=== PATIENT | male | born 1945 | race Caucasian/White ===

== ENCOUNTER 2016-11-08 20:45 | Observation (INO) | payer OTHER, MEDICARE ==
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
[2016-11-08 21:35] LABS: Basophils % (A) 1 %; CH 33.3; CHCM 34.3; Eosinophils # (A) 0.2 k/uL (0-0.7); Eosinophils % (A) 2 %; HCT 39.9 % (39.0-53.0); HDW 2.25; HGB 13.5 gm/dL (13.0-17.5); Luc # (Auto) 0.12; Luc % (Auto) 1; Lymphocytes # (A) 1.3 k/uL (1.0-4.8); Lymphocytes % (A) 14 %; MCH 33.1 pg (25.0-35.0); MCHC 33.9 g/dL (31.0-37.0); MCV 97.4 fL (80.0-100.0); Mean Platelet Volume 7.8; Monocytes # (A) 0.3 k/uL (0-1.0); Monocytes % (A) 3 %; Neutrophils # (A) 7.4 k/uL (1.3-7.7); Neutrophils % (A) 79 %; RBC 4.09 m/uL (4.30-5.90); RDW 12.4 % (11.5-15.5); WBC 9.3 k/uL (3.8-10.6); WBC (Perox) 9.57
--- NOTE | 2016-11-08 21:44 | XR ---
EXAMINATION TYPE: XR chest 1V portable DATE OF EXAM: 11/08/2016 9:30 PM COMPARISON: [id number] HISTORY: Chest pain TECHNIQUE: Single frontal view of the chest is obtained. FINDINGS: There is redemonstration of chronic opacity at the left costophrenic angle partially obscu ring the peripheral left hemidiaphragm. This may relate to chronic pleural parenchymal scarring versu s trace persistent left pleural effusion. Overall there is pulmonary hyperinflation and flattening of the diaphragms compatible with underlying COPD as there is also evidence of biapical lucency. Linear scarring versus chronic atelectasis is seen within the right upper lung radiating from the sup rahilar region. Prominent chronic interstitial lung markings are unchanged from the prior. Postsurgic al changes are seen of the sternum and mediastinum. Cardiac silhouette is nonenlarged. Osseous struct ures appear intact. IMPRESSION: 1. No acute cardiopulmonary pathology. 2. Persistent trace left pleural effusion versus left pleural thickening. 3. Right upper lung scarring versus chronic platelike atelectasis. 4. Radiographic sequela of COPD.
[2016-11-08 21:47] LABS: ALT 38 U/L (21-72); AST 22 U/L (17-59); Alkaline Phosphatase 84 U/L (38-126); Anion Gap 11 mmol/L; Blood Urea Nitrogen 28 mg/dL (9-20); Calcium 8.8 mg/dL (8.4-10.2); Carbon Dioxide 22 mmol/L (22-30); Chloride 106 mmol/L (98-107); Glucose 95 mg/dL (74-99); Magnesium 1.8 mg/dL (1.6-2.3); Non-African American GFR(MDRD) >60 (>60 ml/min/1.73 sqM); Potassium 3.6 mmol/L (3.5-5.1); Sodium 139 mmol/L (137-145); Total Bilirubin 0.8 mg/dL (0.2-1.3)
[2016-11-08 21:51] LABS: Partial Thromboplastin Time 22.1 sec (22.0-30.0); Prothrombin Time 9.9 sec (9.0-12.0)
[2016-11-08 21:52] LABS: Creatine Kinase 38 U/L (55-170)
[2016-11-08 22:07] LABS: Creatine Kinase MB 0.5 ng/mL (0.0-2.4); Troponin I <0.012 ng/mL (0.000-0.034)
[2016-11-08] MEDS ORDERED: MORPHINE SULFATE 4 MG/ML SYRINGE IV PRN (22:50)
[2016-11-08] MEDS ORDERED: NITROGLYCERIN SL TABS 0.4 MG TAB SUBLINGUAL PRN (22:50)
[2016-11-08] MEDS ORDERED: FLUTICASONE 50MCG/SPRAY NASAL 16GM NASAL PRN (22:52)
[2016-11-09 00:20] VITALS: BMI 28.8
[2016-11-09 03:46] LABS: Creatine Kinase 46 U/L (55-170)
[2016-11-09 04:00] LABS: Creatine Kinase MB 0.6 ng/mL (0.0-2.4); Troponin I <0.012 ng/mL (0.000-0.034)
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
[2016-11-09 07:41] LABS: Cholesterol 154 mg/dL (<200); HDL Cholesterol 48 mg/dL (40-60); Triglycerides 102 mg/dL (<150)
[2016-11-09 07:43] LABS: Creatine Kinase 30 U/L (55-170)
[2016-11-09 07:55] LABS: Creatine Kinase MB 0.5 ng/mL (0.0-2.4); Troponin I <0.012 ng/mL (0.000-0.034)
[2016-11-09] MEDS: SYMBICORT 160-4.5 MCG INHALER INHALATION SCH ×2 (08:19→20:36)
[2016-11-09] MEDS: ALBUTEROL NEBULIZED 2.5 MG/3 ML INHALATION SCH ×4 (08:20→20:36)
[2016-11-09] MEDS: PANTOPRAZOLE 40 MG TABLET PO SCH ×2 (08:45→17:36)
[2016-11-09] MEDS: ASPIRIN 325 MG TAB PO SCH (08:45)
[2016-11-09] MEDS: METOPROLOL SUCCINATE (ER) 25 MG TAB.ER.24H PO SCH (08:45)
[2016-11-09] MEDS: ISOSORBIDE MONONITRATE ER 30 MG TAB.ER.24H PO SCH (08:45)
[2016-11-09] MEDS: TIOTROPIUM 18 MCG/PUFF INHALER INHALATION SCH (13:36)
[2016-11-09] MEDS: GABAPENTIN 300 MG CAP PO SCH ×2 (16:41→21:50)
--- NOTE | 2016-11-09 18:36 | HP ---
DATE OF ADMISSION: Patient is a 71-year-old with a previous history of coronary artery disease, CABG with 3-vessel bypass grafting in 2003. He was having chest pain yesterday with some typical features radiating to both the shoulders. Patient denied any shortness of breath, lightheadedness or diaphoresis associated with that. After that patient took an aspirin and sublingual nitroglycerin. After sublingual nitroglycerin patient had a syncopal episode without any seizure-like activity, loss of bowel or bladder incontinence. Patient's blood pressure at that time was apparently in the 50s systolic. He was brought in here. Apparently it was low as well and patient was mildly bradycardic as well. Patient was subsequently admitted for monitoring and evaluation by Cardiology. Patient had a recent stress test about 4 weeks ago in [facility]. Apparently that was negative, as per the patient. Cardiology evaluated the patient and they are recommending one more day of monitoring. Patient takes 100 mg of Toprol XL and amlodipine 10 mg, lisinopril hydrochlorothiazide combination. Patient is only being continued on 25 mg of Toprol XL. In spite of this, his blood pressure remained on the normal side. Patient may be actually hypotensive and was being over-treated for his hypertension. Will monitor his blood pressures as well overnight and will decide what to do regarding his antihypertensive medications upon discharge. REVIEW OF SYSTEMS: CONSTITUTIONAL: No fever, no malaise, no fatigue. HEENT: No recent visual problems or hearing problems. Denied any sore throat. CARDIOVASCULAR: As described in HPI. Patient denied any palpitations. Patient does not have any more chest pain. PULMONARY: No shortness of breath, no cough, no hemoptysis. GASTROINTESTINAL: No diarrhea, no nausea, no vomiting, no abdominal pain. Normoactive bowel sounds. NEUROLOGICAL: No headaches, no weakness, no numbness. HEMATOLOGICAL: Denies any bleeding or petechiae. GENITOURINARY: Denies any burning micturition, frequency, or urgency. MUSCULOSKELETAL/RHEUMATOLOGICAL: Denies any joint pain, swelling, or any muscle pain. ENDOCRINE: Denies any polyuria or polydipsia. The rest of the 14 point review of systems is negative. Past medical history is significant for: 1. Coronary artery disease. 2. Four-vessel bypass in the past. 3. COPD. 4. Congestive heart failure. 5. Gastroesophageal reflux disease. 6. Hyperlipidemia. 7. Hypertension. 8. Myocardial infarction in the past. 9. Patient had coronary artery bypass grafting, cardiac catheterization. 10. Orthopedic surgery in the past. SOCIAL HISTORY: Former smoker. Denied any alcohol abuse or any drug abuse. FAMILY HISTORY: Father had coronary artery disease, dementia, myocardial infarction. Mother had cancer and at age 73 of multiple cancers, as per the patient. HOME MEDICATIONS: 1. Albuterol. 2. Budesonide/formoterol. 3. Pravastatin. 4. Tiatropium. 5. Aspirin. 6. Albuterol. 7. Fluticasone nasal spray. 8. Gabapentin. 9. Ipratropium. 10. Lisinopril hydrochlorothiazide. 11. Isosorbide mononitrate 120 p.o. daily. 12. Metoprolol succinate. 13. Omeprazole. 14. Amlodipine. ALLERGIES: NO KNOWN DRUG ALLERGIES. PHYSICAL EXAMINATION: VITAL SIGNS: Temperature 97.4, pulse of 64, respiratory rate of 16. Blood pressure is 134/92. Saturating at 94% on 2 L of oxygen by nasal cannula. GENERAL: The patient is alert and oriented x3, not in any acute distress. Well developed, well nourished. HEENT: Pupils are round and equally reacting to light. EOMI. No scleral icterus. No conjunctival pallor. Normocephalic, atraumatic. No pharyngeal erythema. No thyromegaly. CARDIOVASCULAR: S1 and S2 present. No murmurs, rubs, or gallops. PULMONARY: Chest is clear to auscultation, no wheezing or crackles. ABDOMEN: Soft, nontender, nondistended, normoactive bowel sounds. No palpable organomegaly. MUSCULOSKELETAL: No joint swelling or deformity. EXTREMITIES: No cyanosis, clubbing, or pedal edema. NEUROLOGICAL: Gross neurological examination did not reveal any focal deficits. SKIN: No rashes. LABORATORY DATA: CBC, CMP show no significant abnormality except for mildly elevated BUN of 28. Chest x-ray did not show any significant abnormality except for old atelectasis scarring and COPD, trace left-sided pleural effusion, left pleural thickening. ASSESSMENT AND PLAN: 1. Chest discomfort in a patient with a recent stress test. Cardiology evaluated the patient. Rule out acute coronary syndromes. 2. Syncope which is secondary to hypotension and overtreatment with antihypertensive medications along with sublingual nitroglycerin he received. Will continue to hold off on the antihypertensive medications and see how his blood pressure responds overnight and then, depending on that, will decide on his home regimen upon discharge. 3. Chronic obstructive pulmonary disease without any acute exacerbation. 4. Hyperlipidemia. 5. Coronary artery disease with previous coronary artery bypass graft. 6. Osteoarthritis.
[2016-11-09] MEDS ORDERED: ACETAMINOPHEN TAB 325 MG TAB PO PRN (20:15)
[2016-11-09] MEDS ORDERED: MAGNESIUM PO SCH (21:00)
[2016-11-09] MEDS ORDERED: ZINC PO SCH (21:00)
[2016-11-09] MEDS ORDERED: CALCIUM PO SCH (21:00)
[2016-11-09] MEDS ORDERED: PRAVASTATIN SODIUM 80 MG TAB PO SCH (21:00)
[2016-11-10] MEDS: SYMBICORT 160-4.5 MCG INHALER INHALATION SCH (07:12)
[2016-11-10] MEDS: ALBUTEROL NEBULIZED 2.5 MG/3 ML INHALATION SCH ×2 (07:12→10:46)
[2016-11-10] MEDS: TIOTROPIUM 18 MCG/PUFF INHALER INHALATION SCH (07:34)
[2016-11-10] MEDS: ISOSORBIDE MONONITRATE ER 30 MG TAB.ER.24H PO SCH (08:06)
[2016-11-10] MEDS: PANTOPRAZOLE 40 MG TABLET PO SCH (08:06)
[2016-11-10] MEDS: ASPIRIN 325 MG TAB PO SCH (08:06)
[2016-11-10] MEDS: GABAPENTIN 300 MG CAP PO SCH (08:06)
[2016-11-10] MEDS: METOPROLOL SUCCINATE (ER) 25 MG TAB.ER.24H PO SCH (08:06)
--- NOTE | 2016-11-10 08:26 | P.PN ---
Progress Note - Text This is a pleasant 71-year-old gentleman with a past medical history significant for coronary artery disease and prior coronary artery bypass grafting 3 in 2003 with unknown details at this point, hypertension, dyslipidemia, and COPD, presented to the hospital complaining of chest discomfort. The patient was in his usual state of health until yesterday when he was sitting home watching TV and suddenly started experiencing chest discomfort. He went into the kitchen to get an aspirin and on the way to the kitchen he lost his consciousness. Ambulance was called and the patient was found to be hypotensive. He was brought to the hospital. The EKG showed sinus rhythm without any significant changes. The cardiac enzymes were checked and came in to be unremarkable. The patient had similar episode to this back in 2015 and at that point he underwent dobutamine stress echocardiogram as well as an echocardiogram and both came in to be unremarkable. I am concerned about severity underlying CAD or cardiac arrhythmia behind his symptoms in view of the background medical history as well as the recurrence of symptoms. I recommended proceeding with a different modality of stress test but unfortunately the patient, have nuclear stress test because of claustrophobia. I might consider proceeding with heart catheterization to rule out any severe underlying CAD. Also cardiac arrhythmia has to be ruled out as an etiology for his symptoms. I am going to DC the heparin at this point. I'll follow-up with the patient today, he seems to be feeling better. He did not have any chest pain or discomfort within the last 24 hours. He did not have any cardiac arrhythmia. I recommended the patient to have an event monitor and also to undergo a heart catheterization. The patient would like that to be done at the [facility] in [place]. I would get him up and around
[2016-11-10 11:58] VITALS: BP 118/62; PULSE 67; TEMP 97.8
[2016-11-10 12:40] VITALS: RESP 18
--- NOTE | 2016-11-10 18:19 | DS ---
DATE OF ADMISSION: 11/08/2016 DATE OF DISCHARGE: 11/10/2016 The patient is a 71-year-old admitted with a syncopal episode after taking sublingual nitroglycerin. The blood pressure is low in spite of stopping all of his anti-hypertensive medications including decreasing the dose of Toprol-XL to 25 mg. Patient was having chest pain which was evaluated by cardiology and they are recommending a cardiac catheterization down the line in [facility]. At this point of time patient has a recent cardiac catheterization, which was negative because of which no further intervention is being done at this point of time. Regarding his syncopal episode, I am discontinuing all his anti-hypertensive medications except for I am putting him on low dose of Lisinopril 5 mg and discontinued hydrochlorothiazide. Patient was on 20 mg of Lisinopril amlodipine. All of which are discontinued. I am decreasing the dose of Toprol-XL to 50 mg from 100 mg as patient was significantly sinus bradycardic as well. Patient was seen and examined on the day of discharge. Vitals are stable. PHYSICAL EXAMINATION: GENERAL: The patient is alert and oriented x3, not in any acute distress. Well developed, well nourished. HEENT: Pupils are round and equally reacting to light. EOMI. No scleral icterus. No conjunctival pallor. Normocephalic, atraumatic. No pharyngeal erythema. No thyromegaly. CARDIOVASCULAR: S1 and S2 present. No murmurs, rubs, or gallops. PULMONARY: Chest is clear to auscultation, no wheezing or crackles. ABDOMEN: Soft, nontender, nondistended, normoactive bowel sounds. No palpable organomegaly. MUSCULOSKELETAL: No joint swelling or deformity. EXTREMITIES: No cyanosis, clubbing, or pedal edema. NEUROLOGICAL: Gross neurological examination did not reveal any focal deficits. SKIN: No rashes. ASSESSMENT: 1. Chest pain due to above mentioned reasons, ruled out acute coronary syndrome. 2. Syncope. 3. Chronic obstructive pulmonary disease without any acute exacerbation. 4. Hyperlipidemia. 5. Coronary artery disease. 6. Osteoarthritis. Patient will be discharged today. Follow with Dr. Pete Abdi in three to five days. Follow-up with Cardiology. Activity as tolerated. Cardiac diet. Spent greater than 35 minutes in total discharge process.
== END 2016-11-10 12:45 | disposition home or self-care (01) ==
LOC: EC 20:45 → 3SUR 22:54
PROVIDERS: ADMIT Hospitalist; ATTEND Hospitalist
DX: R07.89 Other chest pain (principal); J44.9 Chronic obstructive pulmonary disease, unspecified; I25.119 Atherosclerotic heart disease of native coronary artery with unspecified angina pectoris; I95.9 Hypotension, unspecified; E78.5 Hyperlipidemia, unspecified; Z95.1 Presence of aortocoronary bypass graft; I25.2 Old myocardial infarction; Z86.73 Personal history of transient ischemic attack (TIA), and cerebral infarction without residual deficits; I11.0 Hypertensive heart disease with heart failure; I50.9 Heart failure, unspecified; K21.9 Gastro-esophageal reflux disease without esophagitis; Z99.81 Dependence on supplemental oxygen; M19.90 Unspecified osteoarthritis, unspecified site; Z79.899 Other long term (current) drug therapy; Z79.82 Long term (current) use of aspirin; Z79.51 Long term (current) use of inhaled steroids; Z87.891 Personal history of nicotine dependence; Z82.49 Family history of ischemic heart disease and other diseases of the circulatory system; R00.1 Bradycardia, unspecified; R06.00 Dyspnea, unspecified
CPT/HCPCS: 99285; 36415; 94640 ×4; 93005; 80061; 80053; 82550 ×2; 82553 ×2; 83735; 84484 ×2; 85025; 85610; 85730; 71010; G0378 ×3

== ENCOUNTER 2017-09-20 17:00 | Inpatient (IN) | payer OTHER, MEDICARE ==
[2017-09-20] MEDS ORDERED: SODIUM CHLORIDE 0.9% 1,000 ML IV STA (17:49)
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
[2017-09-20 19:04] LABS: Basophils # (A) 0.1 k/uL (0-0.2); Basophils % (A) 2 %; Eosinophils # (A) 0.2 k/uL (0-0.7); Eosinophils % (A) 3 %; HCT 43.8 % (39.0-53.0); HGB 15.5 gm/dL (13.0-17.5); Lymphocytes # (A) 1.3 k/uL (1.0-4.8); Lymphocytes % (A) 17 %; MCH 34.1 pg (25.0-35.0); MCHC 35.5 g/dL (31.0-37.0); MCV 96.2 fL (80.0-100.0); Mean Platelet Volume 7.8; Monocytes # (A) 0.5 k/uL (0-1.0); Monocytes % (A) 6 %; Neutrophils # (A) 5.9 k/uL (1.3-7.7); Neutrophils % (A) 72 %; Platelet Count 222 k/uL (150-450); RBC 4.55 m/uL (4.30-5.90); RDW 11.7 % (11.5-15.5); WBC 8.1 k/uL (3.8-10.6)
[2017-09-20 19:15] LABS: Appearance,Urine Clear (Clear); Bilirubin,Urine Negative (Negative); Blood,Urine Negative (Negative); Color,Urine Yellow; Glucose,Urine (UA) Negative (Negative); Ketones,Urine Negative (Negative); Leukocyte Esterase,Urine Negative (Negative); Nitrite,Urine Negative (Negative); PH, Urine 6.5 (5.0-8.0); Protein,Urine Negative (Negative); Specific Gravity,Urine 1.006 (1.001-1.035); Urobilinogen,Urine <2.0 mg/dL (<2.0)
[2017-09-20 19:15] LABS: Albumin 3.9 g/dL (3.5-5.0); Calcium 9.4 mg/dL (8.4-10.2); Potassium 3.6 mmol/L (3.5-5.1); Total Protein 6.5 g/dL (6.3-8.2)
--- NOTE | 2017-09-20 19:25 | XR ---
EXAMINATION TYPE: XR chest 2V DATE OF EXAM: 09/20/2017 COMPARISON: Prior chest x-ray November 08, 2016. HISTORY: Hypotension and shortness of breath. TECHNIQUE: Frontal and lateral views of the chest are obtained. FINDINGS: There is there is persistent right suprahilar linear scarring. There is additional left perez prahilar linear scarring slightly less prominent. There is additional chronic parenchymal change or s carring in both bases. There is no suspicious focal airspace opacity, pleural effusion, or pneumothor ax seen bilaterally. The cardiac silhouette size is within normal limits with atherosclerotic thoraci c aorta. The osseous structures are intact. IMPRESSION: Bilateral chronic parenchymal fibrosis without suspicious acute pulmonary process.
[2017-09-20 19:27] LABS: Creatine Kinase 98 U/L (55-170)
[2017-09-20 19:31] LABS: Partial Thromboplastin Time 22.1 sec (22.0-30.0); Prothrombin Time 10.1 sec (9.0-12.0)
[2017-09-20 19:41] LABS: Creatine Kinase MB 1.3 ng/mL (0.0-2.4); Troponin I <0.012 ng/mL (0.000-0.034)
[2017-09-20] MEDS ORDERED: NALOXONE 0.4 MG/ML 1 ML VIAL IV PRN (20:08)
[2017-09-20] MEDS ORDERED: FLUTICASONE 50MCG/SPRAY NASAL 16GM EA NOSTRIL PRN (20:09)
[2017-09-20] MEDS ORDERED: LORATADINE 10 MG TAB PO PRN (20:09)
[2017-09-20] MEDS ORDERED: ALBUTEROL NEBULIZED 2.5 MG/3 ML INHALATION PRN (20:09)
[2017-09-20 21:56] VITALS: BMI 28.2
[2017-09-20] MEDS ORDERED: PREGABALIN 25 MG CAP PO SCH (22:00)
[2017-09-20] MEDS ORDERED: PREGABALIN 25 MG CAP PO STA (22:43)
[2017-09-20] MEDS: ACETAMINOPHEN TAB 500 MG TAB PO PRN (22:55)
[2017-09-21] MEDS: ISOSORBIDE MONONITRATE ER 60 MG TAB.ER.24H PO SCH (07:43)
[2017-09-21] MEDS: PANTOPRAZOLE 40 MG TABLET PO SCH ×2 (07:43→17:21)
[2017-09-21] MEDS: ASPIRIN 81 MG PO SCH (07:43)
[2017-09-21] MEDS: PREGABALIN 25 MG CAP PO SCH ×3 (07:47→21:24)
[2017-09-21] MEDS: UREA 20% TOPICAL SCH (07:48)
[2017-09-21] MEDS: IPRATROPIUM 0.5 MG/2.5 ML NEBU INHALATION SCH ×2 (08:00→11:41)
[2017-09-21] MEDS: ALBUTEROL NEBULIZED 2.5 MG/3 ML INHALATION SCH ×2 (08:00→11:41)
[2017-09-21] MEDS: SYMBICORT 160-4.5 MCG INHALER INHALATION SCH ×2 (08:00→20:35)
[2017-09-21 08:30] LABS: Basophils # (A) 0.1 k/uL (0-0.2); Basophils % (A) 1 %; Eosinophils # (A) 0.3 k/uL (0-0.7); Eosinophils % (A) 4 %; HCT 43.2 % (39.0-53.0); HGB 14.5 gm/dL (13.0-17.5); Lymphocytes # (A) 1.5 k/uL (1.0-4.8); Lymphocytes % (A) 24 %; MCH 33.1 pg (25.0-35.0); MCHC 33.7 g/dL (31.0-37.0); MCV 98.2 fL (80.0-100.0); Mean Platelet Volume 8.2; Monocytes # (A) 0.5 k/uL (0-1.0); Monocytes % (A) 8 %; Neutrophils # (A) 3.8 k/uL (1.3-7.7); Neutrophils % (A) 61 %; Platelet Count 164 k/uL (150-450); RBC 4.39 m/uL (4.30-5.90); RDW 11.7 % (11.5-15.5); WBC 6.2 k/uL (3.8-10.6)
[2017-09-21 08:44] LABS: Albumin 3.5 g/dL (3.5-5.0); Potassium 3.8 mmol/L (3.5-5.1); Total Bilirubin 1.3 mg/dL (0.2-1.3); Total Protein 6.1 g/dL (6.3-8.2)
[2017-09-21] MEDS: IPRATROPIUM-ALBUTEROL 3 ML NEB INHALATION SCH ×2 (16:26→20:35)
[2017-09-21] MEDS: LISINOPRIL 10 MG TAB PO SCH (17:21)
[2017-09-21] MEDS: METOPROLOL SUCCINATE (ER) 50 MG TAB.ER.24H PO SCH (17:21)
[2017-09-21 20:46] VITALS: RESP 18
[2017-09-21] MEDS ORDERED: cloNIDine HCL 0.1 MG TAB PO PRN (20:51)
[2017-09-21] MEDS: amLODIPine 5 MG TAB PO SCH (21:25)
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
[2017-09-22] MEDS: IPRATROPIUM-ALBUTEROL 3 ML NEB INHALATION SCH ×4 (07:28→20:27)
[2017-09-22] MEDS: SYMBICORT 160-4.5 MCG INHALER INHALATION SCH ×2 (07:28→20:27)
[2017-09-22 07:51] LABS: Basophils # (A) 0.1 k/uL (0-0.2); Basophils % (A) 1 %; Eosinophils # (A) 0.2 k/uL (0-0.7); Eosinophils % (A) 3 %; HCT 41.4 % (39.0-53.0); HGB 14.2 gm/dL (13.0-17.5); Lymphocytes # (A) 1.2 k/uL (1.0-4.8); Lymphocytes % (A) 19 %; MCH 33.1 pg (25.0-35.0); MCHC 34.2 g/dL (31.0-37.0); MCV 96.8 fL (80.0-100.0); Monocytes # (A) 0.4 k/uL (0-1.0); Monocytes % (A) 6 %; Neutrophils # (A) 4.4 k/uL (1.3-7.7); Neutrophils % (A) 70 %; Platelet Count 166 k/uL (150-450); RBC 4.28 m/uL (4.30-5.90); RDW 11.6 % (11.5-15.5); WBC 6.3 k/uL (3.8-10.6)
[2017-09-22] MEDS: ASPIRIN 81 MG PO SCH (08:18)
[2017-09-22] MEDS: amLODIPine 5 MG TAB PO SCH ×2 (08:18→20:33)
[2017-09-22] MEDS: LISINOPRIL 10 MG TAB PO SCH (08:18)
[2017-09-22] MEDS: PANTOPRAZOLE 40 MG TABLET PO SCH ×2 (08:18→16:32)
[2017-09-22] MEDS: METOPROLOL SUCCINATE (ER) 50 MG TAB.ER.24H PO SCH (08:18)
[2017-09-22] MEDS: ISOSORBIDE MONONITRATE ER 60 MG TAB.ER.24H PO SCH (08:18)
[2017-09-22 08:19] LABS: Anion Gap 9 mmol/L; Blood Urea Nitrogen 13 mg/dL (9-20); Calcium 9.6 mg/dL (8.4-10.2); Carbon Dioxide 28 mmol/L (22-30); Chloride 98 mmol/L (98-107); Glucose 95 mg/dL (74-99); Potassium 3.9 mmol/L (3.5-5.1); Sodium 135 mmol/L (137-145)
[2017-09-22] MEDS: PREGABALIN 25 MG CAP PO SCH ×3 (08:21→20:33)
[2017-09-22] MEDS: UREA 20% TOPICAL SCH (08:24)
[2017-09-22] MEDS ORDERED: LISINOPRIL 10 MG TAB PO SCH (09:00)
[2017-09-22] MEDS ORDERED: METOPROLOL SUCCINATE (ER) 50 MG TAB.ER.24H PO SCH (09:00)
[2017-09-22] MEDS: HYDROCHLOROTHIAZIDE 12.5 MG CAP PO SCH (12:40)
[2017-09-22] MEDS ORDERED: PRAVASTATIN SODIUM 80 MG TAB PO SCH (21:00)
--- NOTE | 2017-09-22 22:26 | P.PN ---
Subjective Progress Note Date: 09/22/17 Principal diagnosis: Syncope Patient is a 72-year-old male with a known history of coronary artery disease with history of CABG, abdominal aortic repair, hypertension, peripheral neuropathy and alcohol abuse and other medical problems came to ER with complaint of dizziness, low blood pressure, and syncope. He states that for the last few weeks he has been having issues with low blood pressure at least once per week. Today his blood pressures have been very low in the 50s/40s when checked by his . He states that today he has been very dizzy and has been nearly passing out whenever he attempts to stand. He states that one point he did pass out completely while sitting on the couch. Denies any injury from this. He states that he is eating and drinking without difficulty. He denies any new medications or recent changes in his medications. He denies any recent nausea, vomiting, or diarrhea. Denies any chest pain. States he does have shortness of breath with lying flat. States he does get swelling in his legs when he does take medication for this. Patient denies any recent rash, fever, chills, abdominal pain, constipation, back pain, numbness, tingling, hematuria, dysuria, urinary urgency, urinary frequency, headache, visual changes , or any other complaints. Chest x-ray bilateral chronic parenchymal fibrosis. No acute process noted EKG normal sinus rhythm Patient was given 1 L fluid bolus in the ER. 09/22/2017 Patient denied any chest pain or shortness of breath. Otherwise blood pressure is actually elevated. Start back on his home medications and added Norvasc. We did hold hydrochlorothiazide otherwise. No fever no chills. Anticipate discharge next 24 hours with better blood pressure control. All other review of systems negative except the above Current medications reviewed. Objective - Vital Signs Vital signs: Vital Signs Temp 98.7 F 09/22/17 20:28 Pulse 78 09/22/17 20:38 Resp 18 09/22/17 20:28 BP 164/95 09/22/17 20:28 Pulse Ox 95 09/22/17 20:28 Intake & Output 09/22/17 09/22/17 09/23/17 06:59 18:59 06:59 Intake Total 400 Balance 400 Weight 99.79 kg Intake: Oral 400 Other: Voiding Method Toilet Toilet # Voids 1 1 1 # Bowel Movements 1 - Exam PHYSICAL EXAMINATION: Patient is lying in the bed comfortably, no acute distress, awake alert and oriented.. HEENT: Normocephalic. Neck is supple. Pupils reactive. Nostrils clear. Oral cavity is moist. Ears reveal no drainage. Neck reveals no JVD, carotid bruits, or thyromegaly. CHEST EXAMINATION: Trachea is central. Symmetrical expansion. Lung beckham clear to auscultation and percussion. CARDIAC: Normal S1, S2 with no gallops. No murmurs ABDOMEN: Soft. Bowel sounds normal. No organomegaly. No abdominal bruits. Extremities: reveal no edema. No clubbing or cyanosis Neurologically awake, alert, oriented x3 with well-coordinated movements. No focal deficits noted Skin: No rash or skin lesions. Psychiatric: Coperative. Nonsuicidal Musculoskeletal: No joint swelling or deformity. Normal range of motion. - Labs CBC & Chem 7: 09/22/17 07:09 09/22/17 07:09 Labs: Abnormal Lab Results - Last 24 Hours (Table) 09/22/17 09/22/17 Range/Units 07:09 07:09 RBC 4.28 L (4.30-5.90) m/uL Sodium 135 L (137-145) mmol/L Assessment and Plan Assessment: Dizziness and near syncope likely due to orthostatic hypotension on admission. Improved with 1 L IV fluid bolus in the ER. Hypertension uncontrolled now Hyperlipidemia GERD History of CVA/TIA/ COPD stable. On home oxygen Chronic hypoxic respiratory failure on home oxygen due to COPD Degenerative joint disease Coronary artery disease with history of CABG Bilateral tinnitus and vertigo History of Agent [place] exposure Previous history of smoking DVT prophylaxis Plan: Blood pressure improved with 1 L fluid bolus in the ER. Blood pressure started trending up. Started back on home medications. Currently patient denied any dizziness or lightheadedness. Patient says that he has an appointment with long term care phlebotomist at [place] on Friday. We will continue the home medications and hold hydrochlorothiazide. Will follow up closely. Further recommendations based on the clinical course. Prognosis is guarded with multiple medical problems and comorbid conditions. Time with Patient: Greater than 30
[2017-09-23] MEDS: ACETAMINOPHEN TAB 500 MG TAB PO PRN (01:49)
[2017-09-23] MEDS: ISOSORBIDE MONONITRATE ER 60 MG TAB.ER.24H PO SCH (07:40)
[2017-09-23] MEDS: PANTOPRAZOLE 40 MG TABLET PO SCH (07:40)
[2017-09-23] MEDS: amLODIPine 5 MG TAB PO SCH (07:40)
[2017-09-23] MEDS: ASPIRIN 81 MG PO SCH (07:40)
[2017-09-23] MEDS: HYDROCHLOROTHIAZIDE 12.5 MG CAP PO SCH (07:40)
[2017-09-23] MEDS: LISINOPRIL 10 MG TAB PO SCH (07:40)
[2017-09-23] MEDS: METOPROLOL SUCCINATE (ER) 50 MG TAB.ER.24H PO SCH (07:40)
[2017-09-23] MEDS: UREA 20% TOPICAL SCH (07:41)
[2017-09-23] MEDS: PREGABALIN 25 MG CAP PO SCH (07:47)
[2017-09-23] MEDS: IPRATROPIUM-ALBUTEROL 3 ML NEB INHALATION SCH (08:38)
[2017-09-23] MEDS: SYMBICORT 160-4.5 MCG INHALER INHALATION SCH (08:38)
[2017-09-23 08:51] VITALS: BP 164/88; TEMP 98.4
[2017-09-23 08:52] VITALS: PULSE 78
== END 2017-09-23 11:52 | disposition home or self-care (01) | DRG 312 ==
LOC: EC 17:00 → 5MS5E 20:03
PROVIDERS: ADMIT Internal Medicine; ATTEND Internal Medicine
DX: I95.1 Orthostatic hypotension (principal); J96.11 Chronic respiratory failure with hypoxia; I11.0 Hypertensive heart disease with heart failure; I50.9 Heart failure, unspecified; Z99.81 Dependence on supplemental oxygen; J44.9 Chronic obstructive pulmonary disease, unspecified; E78.5 Hyperlipidemia, unspecified; H93.13 Tinnitus, bilateral; I25.10 Atherosclerotic heart disease of native coronary artery without angina pectoris; I25.2 Old myocardial infarction; K21.9 Gastro-esophageal reflux disease without esophagitis; M19.90 Unspecified osteoarthritis, unspecified site; Z79.51 Long term (current) use of inhaled steroids; Z79.899 Other long term (current) drug therapy; Z82.49 Family history of ischemic heart disease and other diseases of the circulatory system; Z86.73 Personal history of transient ischemic attack (TIA), and cerebral infarction without residual deficits; Z87.891 Personal history of nicotine dependence; Z95.1 Presence of aortocoronary bypass graft; Z96.1 Presence of intraocular lens; Z98.41 Cataract extraction status, right eye; Z98.42 Cataract extraction status, left eye; Z57.4 Occupational exposure to toxic agents in agriculture
CPT/HCPCS: 36415; 71046; 80048; 80053; 81003; 82550; 82553; 83880; 84484; 85025; 85610; 85730; 93005; 94640; 96360; 99285

== ENCOUNTER 2018-04-18 19:00 | Observation (INO) | payer OTHER, MEDICARE ==
[2018-04-18] MEDS ORDERED: SODIUM CHLORIDE 0.9% 500 ML 500 ML IV STA (21:01)
[2018-04-18] MEDS ORDERED: ASPIRIN 81 MG PO STA (21:02)
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
[2018-04-18] MEDS ORDERED: LORazepam 2 MG/ML INJ IV STA (21:08)
[2018-04-18 22:00] LABS: Basophils # (A) 0.1 k/uL (0-0.2); Basophils % (A) 1 %; Eosinophils # (A) 0.2 k/uL (0-0.7); Eosinophils % (A) 3 %; HCT 44.2 % (39.0-53.0); HGB 15.7 gm/dL (13.0-17.5); Lymphocytes # (A) 1.4 k/uL (1.0-4.8); Lymphocytes % (A) 16 %; MCH 33.2 pg (25.0-35.0); MCHC 35.5 g/dL (31.0-37.0); MCV 93.5 fL (80.0-100.0); Mean Platelet Volume 7.4; Monocytes # (A) 0.3 k/uL (0-1.0); Monocytes % (A) 4 %; Neutrophils # (A) 6.9 k/uL (1.3-7.7); Neutrophils % (A) 76 %; Platelet Count 211 k/uL (150-450); RBC 4.73 m/uL (4.30-5.90); RDW 12.7 % (11.5-15.5); WBC 9.1 k/uL (3.8-10.6)
[2018-04-18 22:10] LABS: Partial Thromboplastin Time 23.3 sec (22.0-30.0); Prothrombin Time 9.7 sec (9.0-12.0)
[2018-04-18 22:11] LABS: ALT 32 U/L (21-72); AST 34 U/L (17-59); Albumin 4.1 g/dL (3.5-5.0); Alkaline Phosphatase 71 U/L (38-126); Anion Gap 10 mmol/L; Blood Urea Nitrogen 24 mg/dL (9-20); Calcium 9.8 mg/dL (8.4-10.2); Carbon Dioxide 25 mmol/L (22-30); Chloride 103 mmol/L (98-107); Glucose 111 mg/dL (74-99); Potassium 4.2 mmol/L (3.5-5.1); Sodium 138 mmol/L (137-145); Total Bilirubin 0.6 mg/dL (0.2-1.3); Total Protein 7.2 g/dL (6.3-8.2)
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
[2018-04-18 22:35] LABS: Creatine Kinase 83 U/L (55-170)
--- NOTE | 2018-04-18 22:37 | CT ---
EXAMINATION TYPE: CT brain wo con DATE OF EXAM: 04/18/2018 COMPARISON: 09/19/2015 HISTORY: Neuro deficits CT DLP: mGycm Automated exposure control for dose reduction was used. FINDINGS: There is some cerebral cortical atrophy. There is no mass effect nor midline shift. There is no sign of intracranial hemorrhage. The calvarium is intact. IMPRESSION: MILD CEREBRAL ATROPHY. NO ACUTE INTRACRANIAL ABNORMALITY. NO CHANGE.
[2018-04-18 22:48] LABS: Troponin I <0.012 ng/mL (0.000-0.034)
[2018-04-18] MEDS ORDERED: NALOXONE 0.4 MG/ML 1 ML VIAL IV PRN (23:06)
[2018-04-19 01:39] VITALS: BMI 28.2
[2018-04-19] MEDS ORDERED: INFLUENZA VACCINE (6 MOS+) 60 MCG/0.5 ML SYRINGE IM ONE (09:00)
[2018-04-19] MEDS: METOPROLOL SUCCINATE (ER) 50 MG TAB.ER.24H PO SCH (09:40)
[2018-04-19] MEDS: PREGABALIN 25 MG CAP PO SCH ×3 (09:40→21:11)
[2018-04-19] MEDS: ISOSORBIDE MONONITRATE ER 60 MG TAB.ER.24H PO SCH (09:40)
[2018-04-19] MEDS ORDERED: LORATADINE 10 MG TAB PO PRN (12:03)
[2018-04-19] MEDS ORDERED: ALBUTEROL NEBULIZED 2.5 MG/3 ML INHALATION PRN (12:03)
[2018-04-19] MEDS ORDERED: FLUTICASONE 50MCG/SPRAY NASAL 16GM EA NOSTRIL PRN (12:03)
[2018-04-19] MEDS: PANTOPRAZOLE 40 MG TABLET PO SCH ×2 (12:30→17:22)
[2018-04-19] MEDS: LISINOPRIL 10 MG TAB PO SCH (12:30)
[2018-04-19] MEDS: ACETAMINOPHEN TAB 325 MG TAB PO PRN ×2 (12:58→21:11)
[2018-04-19] MEDS ORDERED: ALPRAZolam 0.25 MG TAB PO PRN (14:50)
[2018-04-19] MEDS ORDERED: MELATONIN 3 MG TABLET PO PRN (14:50)
[2018-04-19] MEDS: HEPARIN SODIUM,PORCINE 5,000 UNIT/ML 1 ML VIAL SQ SCH ×2 (15:31→21:06)
[2018-04-19] MEDS: ALBUTEROL NEBULIZED 2.5 MG/3 ML INHALATION SCH ×2 (15:46→19:56)
--- NOTE | 2018-04-19 16:43 | HP ---
HISTORY AND PHYSICAL CHIEF COMPLAINT: Numbness and weakness of the right upper limb. HISTORY OF PRESENT ILLNESS: This 72-year-old gentleman with a past history of multiple medical problems including CAD, CABG, history of CHF, COPD, CVA, GERD, hypertension, hyperlipidemia, myocardial infarction, history of TIA being [facility] [place] was noted to have right arm numbness and weakness. Patient felt like right arm was sleeping which lasted for few hours and because of increased symptoms, the patient came to [facility] and was admitted for further evaluation and treatment. There is no speech difficulties. Initial CT scan did not show acute abnormality. There is no history of fever, rigors. No history of headache, loss of consciousness, seizures. PAST MEDICAL HISTORY: CAD, CABG, CHF, COPD, CVA, TIA, GERD, hypertension, hyperlipidemia. MEDICATIONS: Home medications: 1. Requip 0.25 mg q.h.s. 2. Norvasc 5 mg p.o. b.i.d. 3. Urea 20% cream 1 application topically daily. 4. Spiriva 1 puff daily. 5. Lyrica 25 mg t.i.d. 6. Pravachol 80 mg q.h.s. 7. Prilosec 40 mg b.i.d. 8. Toprol-XL 50 mg p.o. daily. 9. Claritin 10 mg p.o. 10.Zestril 10 mg p.o. daily. 11.Imdur 60 mg. 12.Motrin 200-400 mg q.6h p.r.n. 13.Hydrochlorothiazide 12.5 mg p.o. daily. 14.Flonase 1 spray daily p.r.n. 15.Symbicort 160/4.5 two puffs b.i.d. 16.Ecotrin 81 mg p.o. daily. 17.Ventolin 2.5 q.i.d. 18.Ventolin HFA 1 puff q.6h p.r.n. ALLERGIES: None. FAMILY HISTORY: Family history of CAD, dementia, myocardial infarction in the family. SOCIAL HISTORY: Previous history of smoking. No history of current smoking or alcohol intake. REVIEW OF SYSTEMS: ENT: No diminished hearing or vision. CARDIOVASCULAR: No angina or palpitations. RESPIRATORY: As mentioned earlier. GI: As mentioned earlier. no dysuria. Nervous systems: As mentioned earlier. Allergy/Immunology: No asthma or hayfever. MUSCULOSKELETAL: As mentioned earlier. HEMATOLOGY/ONCOLOGY: No history of anemia. ENDOCRINE: No history of diabetes or hypothyroidism. CONSTITUTIONAL: As mentioned earlier. Dermatology: Negative. Rheumatology: Negative. Psychiatry: As mentioned earlier. PHYSICAL EXAMINATION: GENERAL: The patient is alert and oriented times three . VITAL SIGNS: Pulse 74, blood pressure 148/77, respiratory rate 16. Temperature 98 degrees. Pulse ox 97% on room air. HEENT: Conjunctivae normal. Oral mucosa moist. Neck is no jugular venous distention. No carotid bruit. No lymph node enlargement. Cardiovascular S1, S2. No S3, no S4. Respiratory: Breath sounds diminished in the bases. A few rhonchi. No crackles. ABDOMEN: Soft, nontender. No mass palpable. Legs: No edema and no swelling. NERVOUS SYSTEM: Higher functions as mentioned earlier. Moves all 4 limbs. No focal motor or sensory deficits. No focal motor or sensory deficits. Lymphatics: No lymph nodes palpable in the neck, axillae or groin. SKIN: No ulcer, rash or bleeding. LABS: CBC and BMP noted. BUN is 24. ASSESSMENT: 1. Weakness of the right upper limb, possible acute transient ischemic attack. 2. History of coronary artery disease, coronary artery bypass grafting. 3. History of congestive heart failure. 4. Chronic obstructive pulmonary disease. 5. Cerebrovascular accident, transient ischemic attack. 6. Hypertension. 7. Hyperlipidemia. 8. History of gastroesophageal reflux disease. 9. History of myocardial infarction. 10.History of pneumonia. 11.History of syncope. 12.Chronic hypoxic respiratory failure on home O2 2 L nasal cannula. 13.FULL CODE. RECOMMENDATIONS AND DISCUSSION: In this 72-year-old gentleman who presented with multiple medical issues, at this time, we will monitor the patient closely. Continue the current medications, management and symptomatic treatment. Continue with antiplatelet agents. Neurology evaluation. Full neurovascular work up including 2D echo and carotid Doppler. DVT prophylaxis. Resume the home medications. Monitor blood pressure closely. Antiplatelet agents. Prognosis guarded because of multiple complex medical issues. Further recommendations to follow. Copy of dictation being forwarded to Dr. Abdi in the [place] [facility] who is the primary physician. MMODL / KTN: [id number] /
[2018-04-19 19:17] LABS: Appearance,Urine Clear (Clear); Bilirubin,Urine Negative (Negative); Blood,Urine Negative (Negative); Color,Urine Yellow; Glucose,Urine (UA) Negative (Negative); Ketones,Urine Negative (Negative); Leukocyte Esterase,Urine Negative (Negative); Nitrite,Urine Negative (Negative); Protein,Urine Negative (Negative); Specific Gravity,Urine 1.019 (1.001-1.035); Urobilinogen,Urine <2.0 mg/dL (<2.0)
[2018-04-19] MEDS: SYMBICORT 160-4.5 MCG INHALER INHALATION SCH (19:57)
[2018-04-19] MEDS ORDERED: PRAVASTATIN SODIUM 80 MG TAB PO SCH (21:00)
[2018-04-19] MEDS: amLODIPine 5 MG TAB PO SCH (21:06)
[2018-04-20 06:37] LABS: Basophils # (A) 0.1 k/uL (0-0.2); Basophils % (A) 1 %; Eosinophils # (A) 0.3 k/uL (0-0.7); Eosinophils % (A) 5 %; HCT 44.5 % (39.0-53.0); HGB 14.7 gm/dL (13.0-17.5); Lymphocytes # (A) 1.7 k/uL (1.0-4.8); Lymphocytes % (A) 26 %; MCH 31.2 pg (25.0-35.0); MCHC 33.1 g/dL (31.0-37.0); MCV 94.2 fL (80.0-100.0); Mean Platelet Volume 7.7; Monocytes # (A) 0.4 k/uL (0-1.0); Monocytes % (A) 6 %; Neutrophils % (A) 62 %; Platelet Count 193 k/uL (150-450); RBC 4.72 m/uL (4.30-5.90); RDW 12.5 % (11.5-15.5); WBC 6.5 k/uL (3.8-10.6)
[2018-04-20] MEDS: PANTOPRAZOLE 40 MG TABLET PO SCH (06:42)
[2018-04-20 06:47] LABS: Anion Gap 9 mmol/L; Blood Urea Nitrogen 16 mg/dL (9-20); Calcium 9.7 mg/dL (8.4-10.2); Carbon Dioxide 27 mmol/L (22-30); Chloride 103 mmol/L (98-107); Glucose 97 mg/dL (74-99); Potassium 4.3 mmol/L (3.5-5.1); Sodium 139 mmol/L (137-145)
[2018-04-20] MEDS: SYMBICORT 160-4.5 MCG INHALER INHALATION SCH (08:09)
[2018-04-20] MEDS: ALBUTEROL NEBULIZED 2.5 MG/3 ML INHALATION SCH ×3 (08:09→15:04)
[2018-04-20] MEDS: IPRATROPIUM 0.5 MG/2.5 ML NEBU INHALATION SCH ×3 (08:21→15:05)
[2018-04-20] MEDS: ISOSORBIDE MONONITRATE ER 60 MG TAB.ER.24H PO SCH (08:54)
[2018-04-20] MEDS: LISINOPRIL 10 MG TAB PO SCH (08:54)
[2018-04-20] MEDS: METOPROLOL SUCCINATE (ER) 50 MG TAB.ER.24H PO SCH (08:54)
[2018-04-20] MEDS: HEPARIN SODIUM,PORCINE 5,000 UNIT/ML 1 ML VIAL SQ SCH (08:54)
[2018-04-20] MEDS: amLODIPine 5 MG TAB PO SCH (08:54)
--- NOTE | 2018-04-20 08:54 | US ---
EXAMINATION TYPE: US carotid duplex BILAT DATE OF EXAM: 04/20/2018 COMPARISON: NONE CLINICAL HISTORY: stroke. EXAM MEASUREMENTS: RIGHT: Peak Systolic Velocity (PSV) cm/sec ----- Right CCA: 66.0 ----- Right ICA: 72.5 ----- Right ECA: 128.6 ICA/CCA ratio: 1.1 RIGHT: End Diastole cm/sec ----- Right CCA: 12.7 ----- Right ICA: 12.5 ----- Right ECA: 12.2 LEFT: Peak Systolic Velocity (PSV) cm/sec ----- Left CCA: 62.5 ----- Left ICA: 57.9 ----- Left ECA: 57.9 ICA/CCA ratio: 0.9 LEFT: End Diastole cm/sec ----- Left CCA: 13.6 ----- Left ICA: 18.5 ----- Left ECA: 5.5 VERTEBRALS (direction of flow): Right Vertebral: Antegrade Left Vertebral: Antegrade Rhythm: Normal Moderate atherosclerotic changes with no significant velocity elevations. IMPRESSION: Moderate degree of grayscale atheromatous plaquing with no sonographically evident hemod ynamically significant stenosis within either visualized common or internal carotid arterial system.
[2018-04-20] MEDS: PREGABALIN 25 MG CAP PO SCH (08:59)
[2018-04-20] MEDS ORDERED: ASPIRIN 81 MG PO SCH (09:00)
[2018-04-20] MEDS ORDERED: HYDROCHLOROTHIAZIDE 12.5 MG CAP PO SCH (09:00)
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
[2018-04-20 11:14] VITALS: RESP 20
[2018-04-20 11:32] VITALS: BP 129/70; TEMP 97
[2018-04-20] MEDS: ACETAMINOPHEN TAB 325 MG TAB PO PRN (11:39)
[2018-04-20] MEDS ORDERED: LORazepam 2 MG/ML INJ IV STA (12:26)
--- NOTE | 2018-04-20 12:28 | ECHOF ---
Referral Reason:Cardiac history MEASUREMENTS -------- HEIGHT: 182.9 cm WEIGHT: 98.9 kg BP: 158/85 IVSd: 1.3 cm (0.6 - 1.1) LVIDd: 4.3 cm (3.9 - 5.3) LVPWd: 1.2 cm (0.6 - 1.1) IVSs: 1.5 cm LVIDs: 3.4 cm LVPWs: 0.9 cm LAESV Index (A-L): 35.04 ml/m Ao Diam: 3.5 cm (2.0 - 3.7) AV Cusp: 2.0 cm (1.5 - 2.6) LA Diam: 4.5 cm (2.7 - 3.8) MV EXCURSION: 22.646 mm (> 18.000) MV EF SLOPE: 67 mm/s (70 - 150) EPSS: 1.1 cm MV E Travis: 0.54 m/s MV DecT: 302 ms MV A Travis: 0.83 m/s MV E/A Ratio: 0.64 RAP: 5.00 mmHg RVSP: 31.19 mmHg FINDINGS -------- Sinus rhythm. This was a technically adequate study. The left ventricular size is normal. There is mild concentric left ventricular hypertrophy. Overa ll left ventricular systolic function is low-normal with, an EF between 50 - 55 %. The right ventricle is normal in size. The left atrial size is normal. LA is moderately dilated 34-39 ml/m2 The right atrial size is normal. There is mild aortic regurgitation. Mild mitral annular calcification present. Mild mitral regurgitation is present. Mild tricuspid regurgitation present. There is no evidence of pulmonary hypertension. The right v entricular systolic pressure, as measured by Doppler, is 31.19mmHg. Trace/mild (physiologic) pulmonic regurgitation. The aortic root size is normal. There is no pericardial effusion. CONCLUSIONS -------- 1. The left ventricular size is normal. 2. There is mild concentric left ventricular hypertrophy. 3. Overall left ventricular systolic function is low-normal with, an EF between 50 - 55 %. 4. The right ventricle is normal in size. 5. The left atrial size is normal. 6. LA is moderately dilated 34-39 ml/m2 7. The right atrial size is normal. 8. There is mild aortic regurgitation. 9. Mild mitral annular calcification present. 10. Mild mitral regurgitation is present. 11. Mild tricuspid regurgitation present. 12. There is no evidence of pulmonary hypertension. 13. The right ventricular systolic pressure, as measured by Doppler, is 31.19mmHg. 14. Trace/mild (physiologic) pulmonic regurgitation. 15. The aortic root size is normal. 16. There is no pericardial effusion. CONCRETE TECHNICIAN: Karen Schultz RDCS
--- NOTE | 2018-04-20 14:14 | MR ---
EXAMINATION TYPE: MR brain wo con DATE OF EXAM: 04/20/2018 COMPARISON: CT brain 04/18/2018 HISTORY: Patient with acute right sided weakness CONTRAST: None TECHNIQUE: Multiplanar, multiecho imaging on a 3.0 Deepika magnet is performed through the brain. Stud y is not performed within 24 hours of arrival to the hospital. Fast brain protocol was utilized. The craniovertebral junction is normal. The pituitary is normal. Diffusion-weighted imaging is performed. No abnormal hyperintensity is present to suggest an acute i ntracranial infarct or acute ischemic change. There is mild confluent periventricular white matter changes, likely on the basis of chronic white ma tter ischemic change. This is probably within the periventricular white matter and into the centrum s emiovale. Ventricles and sulci are appropriate for the patient age. IMPRESSIONS: 1. Chronic appearing periventricular white matter ischemic changes. 2. No acute intracranial process.
[2018-04-20 15:21] VITALS: PULSE 76
--- NOTE | 2018-04-20 22:22 | DS ---
DISCHARGE SUMMARY DATE OF SERVICE: 04/20/2018 FINAL DIAGNOSES: 1. Right-sided numbness and weakness; possible acute transient ischemic attack involving the left hemisphere. 2. History of coronary artery disease, coronary artery bypass grafting. 3. History of congestive heart failure. 4. Chronic obstructive pulmonary disease. 5. Cerebrovascular accident, transient ischemic attack. 6. Hypertension. 7. Hyperlipidemia. 8. History of gastroesophageal reflux disease. 9. History of myocardial infarction. 10.History of pneumonia. 11.History of syncope. 12.Chronic hypoxic respiratory failure, on home oxygen at 2 L nasal cannula. 13.FULL CODE. DISCHARGE DISPOSITION: The patient will be discharged in stable condition with guarded prognosis. HISTORY OF PRESENT ILLNESS: This is a 72-year-old gentleman with a past medical history of multiple medical problems was admitted with weakness of the right upper limb, possibly indicating TIA. Basically the neurovascular workup was negative except for atheromatous plaques in the carotid arteries. MRI showed no acute changes except some small vessel ischemia. Neurology saw the patient. The patient will be discharged in stable condition with guarded prognosis. Two-D echo with Doppler showed an ejection fraction about 50% to 55% and mild valvular abnormalities. On exam, vitals are stable. CARDIOVASCULAR SYSTEM: S1, S2 muffled. ABDOMEN: Soft. NERVOUS SYSTEM: No focal deficit. DISCHARGE ADVICE AND MEDICATIONS: 1. Diet is cardiac. 2. Activity limited until followup. 3. Follow up with Dr. Abdi in [facility] in 2-3 days. 4. Follow up with Dr. Melvi Vasquez in 3 weeks. 5. Ventolin 1 puff q.6 p.r.n. and nebulizer 2.5 q.i.d. p.r.n. 6. Ecotrin 81 mg p.o. daily. 7. Symbicort 160/4.5 two puffs b.i.d. 8. Flonase 1 spray daily. 9. Hydrochlorothiazide 12.5 mg p.o. daily. 10.Motrin 200 to 400 mg t.i.d. p.r.n. 11.Imdur ER 60 mg p.o. daily. 12.Zestril 10 mg p.o. daily. 13.Claritin 10 mg p.o. daily. 14.Toprol-XL 50 mg p.o. daily. 15.Prilosec 40 mg before meals b.i.d. 16.Pravachol 80 mg at bedtime. 17.Lyrica 25 mg p.o. t.i.d. 18.Requip 0.25 mg at bedtime. 19.Spiriva 1 puff daily. 20.Urea Cream topical application. 21.Norvasc 5 mg p.o. b.i.d. Once again, the patient will be discharged in stable condition with guarded prognosis. MMODL / IJN: [id number] /
== END 2018-04-20 15:36 | disposition home or self-care (01) ==
LOC: EC 19:00 → 6SEL 23:06
PROVIDERS: ADMIT Hospitalist; ATTEND Hospitalist
DX: R53.1 Weakness (principal); R20.2 Paresthesia of skin; R20.0 Anesthesia of skin; J96.11 Chronic respiratory failure with hypoxia; I67.2 Cerebral atherosclerosis; Z99.81 Dependence on supplemental oxygen; J44.9 Chronic obstructive pulmonary disease, unspecified; I11.0 Hypertensive heart disease with heart failure; I50.9 Heart failure, unspecified; I25.10 Atherosclerotic heart disease of native coronary artery without angina pectoris; E78.5 Hyperlipidemia, unspecified; G62.9 Polyneuropathy, unspecified; K59.00 Constipation, unspecified; K21.9 Gastro-esophageal reflux disease without esophagitis; I25.2 Old myocardial infarction; Z79.51 Long term (current) use of inhaled steroids; Z79.82 Long term (current) use of aspirin; Z79.899 Other long term (current) drug therapy; Z95.1 Presence of aortocoronary bypass graft; Z98.42 Cataract extraction status, left eye; Z98.41 Cataract extraction status, right eye; Z96.1 Presence of intraocular lens; Z86.69 Personal history of other diseases of the nervous system and sense organs; Z87.01 Personal history of pneumonia (recurrent); Z87.891 Personal history of nicotine dependence; Z23 Encounter for immunization; Z86.73 Personal history of transient ischemic attack (TIA), and cerebral infarction without residual deficits; Z82.49 Family history of ischemic heart disease and other diseases of the circulatory system; Z81.8 Family history of other mental and behavioral disorders; Z80.9 Family history of malignant neoplasm, unspecified
CPT/HCPCS: 96376; 96372 ×2; 96361; 96374; 99285; 36415; 94640 ×4; 93005; 93306; 80053; 80048; 82550; 82553; 84484; 85025 ×2; 85610; 85730; 81003; 71046; 93880; 70450; 70551; 90686; G0378 ×3; G0008; J2060 ×2; J1644 ×2

== ENCOUNTER 2018-12-06 07:32 | Emergency (ER) | payer OTHER, MEDICARE ==
[2018-12-06] MEDS ORDERED: IPRATROPIUM-ALBUTEROL 3 ML NEB INHALATION STA (08:01)
[2018-12-06] MEDS ORDERED: ACETAMINOPHEN TAB 500 MG TAB PO STA (08:02)
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
[2018-12-06 08:24] LABS: ALT 17 U/L (21-72); AST 27 U/L (17-59); Albumin 4.5 g/dL (3.5-5.0); Alkaline Phosphatase 115 U/L (38-126); Anion Gap 10 mmol/L; Blood Urea Nitrogen 19 mg/dL (9-20); Carbon Dioxide 27 mmol/L (22-30); Chloride 100 mmol/L (98-107); Glucose 103 mg/dL (74-99); Potassium 4.3 mmol/L (3.5-5.1); Sodium 137 mmol/L (137-145); Total Bilirubin 0.8 mg/dL (0.2-1.3); Total Protein 7.6 g/dL (6.3-8.2)
[2018-12-06 08:29] LABS: HCT 47.8 % (39.0-53.0); HGB 16.4 gm/dL (13.0-17.5); MCH 30.5 pg (25.0-35.0); MCHC 34.2 g/dL (31.0-37.0); MCV 89.1 fL (80.0-100.0); Mean Platelet Volume 8.2; Platelet Count 184 k/uL (150-450); RBC 5.36 m/uL (4.30-5.90); RDW 14.6 % (11.5-15.5); WBC 12.1 k/uL (3.8-10.6)
[2018-12-06 08:48] LABS: Lymphocytes # (M) 0.97 k/uL (1.0-4.8); Monocytes # (M) 0.24 k/uL (0-1.0); Neutrophils # (M) 10.89 k/uL (1.3-7.7); Neutrophils % (M) 90 %; Nucleated Red Blood Cells 0 /100 WBC (0-0); Total Cells Counted 100
--- NOTE | 2018-12-06 09:00 | XR ---
EXAMINATION TYPE: XR chest 2V DATE OF EXAM: 12/06/2018 COMPARISON: Prior chest x-ray 04/18/2018 HISTORY: Difficulty breathing, shortness of breath and cough TECHNIQUE: Frontal and lateral views of the chest are obtained. FINDINGS: Pleural parenchymal changes are similar compared to prior exam, there are areas of scarrin g, patient is post median sternotomy. Eventration of right hemidiaphragm again noted. There is thicke chasidy along the left pleural margin inferiorly. Aorta is dense and ectatic. No evident pneumothorax or pleural effusion. Heart size is stable. There is a hiatal hernia. Prominent lung lines with flatteni ng the hemidiaphragms compatible with underlying COPD, emphysema. Pulmonary artery prominence could b e indicative of pulmonary artery hypertension. IMPRESSION: There are chronic changes as described. Difficult to exclude superimposed early airspace disease. Additional findings above.
[2018-12-06] MEDS ORDERED: IPRATROPIUM-ALBUTEROL 3 ML NEB INHALATION PRN (09:34)
[2018-12-06] MEDS ORDERED: PNEUMONIA PROTOCOL UTILIZED 1 EACH MISC PO PRN (09:34)
[2018-12-06] MEDS ORDERED: AZITHROMYCIN 500 MG in SODIUM CHLORIDE 0.9% 250 ML IVPB STA (09:34)
[2018-12-06] MEDS ORDERED: SODIUM CHLORIDE 0.9% 1,000 ML IV SCH (09:45)
[2018-12-06] MEDS ORDERED: IPRATROPIUM-ALBUTEROL 3 ML NEB INHALATION SCH (12:00)
[2018-12-06 15:18] VITALS: BP 123/75; RESP 21
[2018-12-06 15:25] VITALS: PULSE 76; TEMP 98.6
[2018-12-07] MEDS ORDERED: AZITHROMYCIN 500 MG TAB PO SCH (09:00)
== END 2018-12-06 15:12 ==
LOC: EC 07:32
DX: J44.0 Chronic obstructive pulmonary disease with (acute) lower respiratory infection (principal); J18.9 Pneumonia, unspecified organism; A41.9 Sepsis, unspecified organism; I25.119 Atherosclerotic heart disease of native coronary artery with unspecified angina pectoris; I11.0 Hypertensive heart disease with heart failure; I50.9 Heart failure, unspecified; K21.9 Gastro-esophageal reflux disease without esophagitis; E78.5 Hyperlipidemia, unspecified; I25.2 Old myocardial infarction; G62.9 Polyneuropathy, unspecified; Z87.891 Personal history of nicotine dependence; Z79.51 Long term (current) use of inhaled steroids; Z79.82 Long term (current) use of aspirin; Z79.899 Other long term (current) drug therapy; Z86.73 Personal history of transient ischemic attack (TIA), and cerebral infarction without residual deficits; Z99.81 Dependence on supplemental oxygen; Z95.1 Presence of aortocoronary bypass graft
CPT/HCPCS: 99291; 96365; 96366; 96367; 96361 ×3; 36415; 94640 ×2; 93005; 83880; 80053; 83605; 85025; 87040; 71046; J0456; J0696

== ENCOUNTER → 2019-02-18 | Outpatient (CLI) | payer MEDICARE, OTHER ==
--- NOTE | 2019-02-18 11:41 | CT ---
EXAMINATION TYPE: CT chest wo con DATE OF EXAM: 02/18/2019 COMPARISON: Chest x-ray 12/06/2018 HISTORY: Pulmonary nodule. History of COPD, hypertension, obstructive sleep apnea and asthma. CT DLP: 443.2 mGycm. Automated Exposure Control for Dose Reduction was Utilized. TECHNIQUE: CT scan of the thorax is performed without IV contrast. FINDINGS: LUNGS: There are changes of diffuse severe emphysema. Bilateral areas of subsegmental consolidation a re most typical of atelectasis. Interlobular septal thickening at the lung bases suggestive of pulmon kiran fibrosis. No suspicious pulmonary nodule or mass. Apical pleural thickening noted.. MEDIASTINUM: Lack of IV contrast is noted to limit evaluation for mediastinal and especially hilar ad enopathy. There are no definitive greater than 1 cm hilar or mediastinal lymph nodes. Sternotomy wire s are seen and there are clips within the mediastinum. Atherosclerotic change of the aorta. Mild aneu rysmal dilation of the ascending aorta with maximal dimension measures approximately 4.1 cm. Pulmonar y artery measures approximately 3.1 cm on the right and 2.8 cm on the left. There is dense three-vess el coronary artery calcification and there is a moderate-sized hiatal hernia.. OTHER: Hepatic granuloma noted and there are gallstones. Hypertrophic and degenerative change of the vertebral column. IMPRESSION: 1. Severe COPD with suspected pulmonary fibrosis at the lung bases. 2. No suspicious pulmonary nodule or mass linear band of density extending from the right hilum into the right upper lobe is felt to be more typical of cyst chronic atelectasis or scar. 6 month follow-u p could be obtained for confirmation and to exclude other etiologies. 3. Cholelithiasis 4. Dense three-vessel coronary artery atherosclerotic change. 5. Mild aneurysmal dilation ascending aorta with maximal dimension of 4.1 cm.
== END | disposition home or self-care (01) ==
LOC: RADCTMAIN 11:03
PROVIDERS: ATTEND Internal Medicine Pulmonary Disease
DX: J44.9 Chronic obstructive pulmonary disease, unspecified (principal); I25.10 Atherosclerotic heart disease of native coronary artery without angina pectoris; I71.2 Thoracic aortic aneurysm, without rupture
CPT/HCPCS: 71250

== ENCOUNTER 2019-06-08 16:13 | Inpatient (IN) | payer OTHER, MEDICARE ==
[2019-06-08] MEDS ORDERED: NITROGLYCERIN SL TABS 0.4 MG TAB SUBLINGUAL STA ×3 (16:29)
[2019-06-08] MEDS ORDERED: ASPIRIN 81 MG PO STA (16:29)
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
[2019-06-08 16:42] LABS: Basophils # (A) 0.2 k/uL (0-0.2); Basophils % (A) 2 %; Eosinophils # (A) 0.4 k/uL (0-0.7); Eosinophils % (A) 4 %; HCT 45.3 % (39.0-53.0); HGB 15.6 gm/dL (13.0-17.5); Lymphocytes # (A) 2.5 k/uL (1.0-4.8); Lymphocytes % (A) 23 %; MCH 31.5 pg (25.0-35.0); MCHC 34.5 g/dL (31.0-37.0); MCV 91.4 fL (80.0-100.0); Mean Platelet Volume 7.4; Monocytes # (A) 0.4 k/uL (0-1.0); Monocytes % (A) 4 %; Neutrophils # (A) 7.2 k/uL (1.3-7.7); Neutrophils % (A) 67 %; Platelet Count 229 k/uL (150-450); RBC 4.96 m/uL (4.30-5.90); RDW 13.2 % (11.5-15.5); WBC 10.8 k/uL (3.8-10.6)
[2019-06-08 16:45] LABS: INR 0.9 (<1.2); Partial Thromboplastin Time 24.5 sec (22.0-30.0); Prothrombin Time 9.9 sec (9.0-12.0)
[2019-06-08 16:46] LABS: ALT 25 U/L (21-72); AST 25 U/L (17-59); African American GFR (CKD) >90 (>60 ml/min/1.73 sqM); Albumin 4.7 g/dL (3.5-5.0); Alkaline Phosphatase 88 U/L (38-126); Anion Gap 12 mmol/L; Blood Urea Nitrogen 22 mg/dL (9-20); Carbon Dioxide 27 mmol/L (22-30); Chloride 98 mmol/L (98-107); Glucose 102 mg/dL (74-99); Magnesium 1.7 mg/dL (1.6-2.3); Non-African American GFR(CKD) 86 (>60 ml/min/1.73 sqM); Potassium 3.9 mmol/L (3.5-5.1); Sodium 137 mmol/L (137-145); Total Bilirubin 0.8 mg/dL (0.2-1.3); Total Protein 7.7 g/dL (6.3-8.2)
--- NOTE | 2019-06-08 16:59 | XR ---
EXAMINATION TYPE: XR chest 2V DATE OF EXAM: 06/08/2019 COMPARISON: 12/06/2018 HISTORY: Chest pain TECHNIQUE: Frontal and lateral views of the chest are obtained. FINDINGS: There is coarse interstitial infiltrates in the mid and lower lung [place]. There is linear density right upper lobe consistent with scarring and atelectasis. There is probably emphysema. Ther e are no hilar masses. IMPRESSION: Coarse pulmonary density consistent with interstitial fibrosis. There is improvement in the left lower lobe compared to last exam. No acute lung disease. No heart failure. COPD.
[2019-06-08] MEDS ORDERED: NITROGLYCERIN SL TABS 0.4 MG TAB SUBLINGUAL PRN (17:36)
[2019-06-08] MEDS: NITROGLYCERIN OINT 1 INCH/GM PACKET TOPICAL SCH ×2 (18:21→23:46)
[2019-06-08] MEDS ORDERED: IPRATROPIUM-ALBUTEROL 3 ML NEB INHALATION STA (20:34)
[2019-06-08] MEDS: IPRATROPIUM-ALBUTEROL 3 ML NEB INHALATION SCH ×2 (20:42→20:43)
[2019-06-08] MEDS: PRAVASTATIN SODIUM 80 MG TAB PO SCH (21:36)
[2019-06-08] MEDS ORDERED: ALBUTEROL INHALER 60 PUFF/8 GM INHALER INHALATION PRN (22:21)
[2019-06-08] MEDS ORDERED: ALPRAZolam 0.25 MG TAB PO PRN (22:23)
[2019-06-08] MEDS ORDERED: TEMAZEPAM 15 MG CAP PO PRN (22:23)
[2019-06-08] MEDS ORDERED: LORATADINE 10 MG TAB PO PRN (23:00)
--- NOTE | 2019-06-08 23:28 | HP ---
HISTORY AND PHYSICAL DATE OF SERVICE: 06/08/2019 CHIEF COMPLAINT: Chest pain. HISTORY OF PRESENT ILLNESS: This 73-year-old gentleman with a past medical history of multiple medical problems including CAD, history of COPD, CHF, GERD, hypertension, hyperlipidemia, myocardial infarction, CAD, CABG, being followed by Dr. Abdi in the [facility] in the outpatient setting, was complaining of chest pain. The patient had chest pain which is felt in the anterior part, history of heavy in character, 10/10 in intensity radiating to the neck and jaw. The patient came to [facility] and was admitted to the hospital for further evaluation and treatment. The pain was similar to the previous heart attacks and according the patient, the troponin is found to be negative. An EKG showed no acute abnormality. Patient admitted for further evaluation and treatment. There is no history of any fever, rigors or chills. No history of any headache, loss of consciousness or seizures. Occasional PVCs noted. PAST MEDICAL HISTORY: History of CAD, CABG, history of COPD, CVA, TIA, GERD, hypertension, hyperlipidemia, myocardial infarction, history of pneumonia. MEDICATIONS: Home medications are: 1. Nitro 0.4 sublingual p.r.n. 2. Claritin 10 mg daily p.r.n. 3. Ventolin 2.5 q.i.d. 4. Atrovent p.r.n. 5. Flonase 1 spray daily. 6. Symbicort 160/4.5 2 puffs b.i.d. 7. Spiriva 1 puff daily. 9. Zestril 10 mg p.o. daily. 10.Hydrochlorothiazide 12.5 mg p.o. daily. 11.Neurontin 300 mg p.o. daily. 12.Ecotrin 81 mg p.o. daily. 13.Prilosec 40 mg b.i.d. 14.Toprol-XL 50 mg. 15.Imdur 120 mg p.o. daily. ALLERGIES: None. FAMILY HISTORY: History of CAD, dementia, myocardial infarction. SOCIAL HISTORY: Previous history of smoking. No history of alcohol intake. REVIEW OF SYSTEMS: ENT: No diminished hearing. Diminished vision. CARDIOVASCULAR system as mentioned earlier. RESPIRATIONS: As mentioned earlier. GI no nausea or vomiting. no dysuria. Central nervous system: No numbness or weakness. ALLERGIES/IMMUNOLOGY: No asthma or hayfever. MUSCULOSKELETAL as mentioned earlier. HEMATOLOGY/ONCOLOGY: No history of anemia. ENDOCRINE: No history of diabetes or hypothyroidism. CONSTITUTIONAL: As mentioned earlier. DERMATOLOGY: Negative. RHEUMATOLOGY: Negative. PSYCHIATRY: As mentioned. PHYSICAL EXAMINATION: Alert and oriented times three. Pulse is 63, blood pressure 187/83, respirations 16, temperature 97.7, pulse ox 98% on room air. HEENT: Conjunctivae normal. NECK: No JVD. CARDIOVASCULAR: S1, S2 muffled. RESPIRATORY: Breath sounds diminished in the bases. No rhonchi. No crackles. ABDOMEN: Soft, nontender. No mass palpable. LEGS: No edema. No swelling. NERVOUS SYSTEM: Higher functions as mentioned earlier. Moves all four limbs. No focal motor or sensory deficits. SKIN: No ulcer, no rash and no bleeding. JOINTS: No active deforming arthropathy. LAB STUDIES: WBC 10.8, hemoglobin 15.6, sodium 137, potassium 3.9. ASSESSMENT: 1. Chest pain possible unstable angina. 2. Coronary artery disease, coronary artery bypass grafting history. 3. Congestive heart failure history. 4. Chronic obstructive pulmonary disease. 5. Cerebrovascular accident, transient ischemic attack. 6. Gastroesophageal reflux disease. 7. Hypertension. 8. Hyperlipidemia. 9. Myocardial infarction. 10.History of pneumonia. 11.History of syncopal episode. 12.History of bilateral tinnitus. 13.Vertigo. 14.Remote history of nicotine dependence. RECOMMENDATIONS AND DISCUSSION: This 73-year-old gentleman who presented with multiple complex medical issues, we will monitor the patient closely, continue the current medications, management and symptomatic treatment. We will rule out the possibility of myocardial infarction. Obtain cardiology consultation. Otherwise, I recommend resume the home medications. Rule out myocardial infarction. Possible stress test. Prognosis guarded. Further recommendations to follow. A copy of dictation being forwarded to Dr. Abdi who is the primary physician. MMODL / IJN: [id number] / [id number]
[2019-06-09] MEDS ORDERED: PREGABALIN 100 MG CAP PO STA (00:01)
[2019-06-09 04:59] LABS: Basophils # (A) 0.1 k/uL (0-0.2); Basophils % (A) 1 %; Eosinophils # (A) 0.4 k/uL (0-0.7); Eosinophils % (A) 3 %; HCT 45.6 % (39.0-53.0); HGB 15.7 gm/dL (13.0-17.5); Lymphocytes % (A) 16 %; MCH 31.5 pg (25.0-35.0); MCHC 34.5 g/dL (31.0-37.0); MCV 91.4 fL (80.0-100.0); Mean Platelet Volume 7.2; Monocytes # (A) 0.5 k/uL (0-1.0); Monocytes % (A) 4 %; Neutrophils # (A) 9.1 k/uL (1.3-7.7); Neutrophils % (A) 74 %; Platelet Count 224 k/uL (150-450); RBC 4.99 m/uL (4.30-5.90); RDW 13.2 % (11.5-15.5); WBC 12.3 k/uL (3.8-10.6)
[2019-06-09 05:22] LABS: African American GFR (CKD) >90 (>60 ml/min/1.73 sqM); Anion Gap 11 mmol/L; Blood Urea Nitrogen 21 mg/dL (9-20); Calcium 10.5 mg/dL (8.4-10.2); Carbon Dioxide 27 mmol/L (22-30); Chloride 99 mmol/L (98-107); Cholesterol 177 mg/dL (<200); Glucose 93 mg/dL (74-99); HDL Cholesterol 44 mg/dL (40-60); LDL Cholesterol,Calculated 91 mg/dL (0-99); Non-African American GFR(CKD) 88 (>60 ml/min/1.73 sqM); Potassium 4.5 mmol/L (3.5-5.1); Sodium 137 mmol/L (137-145); Triglycerides 208 mg/dL (<150)
[2019-06-09] MEDS ORDERED: PANTOPRAZOLE 40 MG TABLET PO SCH (07:30)
[2019-06-09] MEDS: IPRATROPIUM 0.5 MG/2.5 ML NEBU INHALATION SCH ×4 (07:53→18:59)
[2019-06-09] MEDS: ALBUTEROL NEBULIZED 2.5 MG/3 ML INHALATION SCH ×4 (07:53→18:59)
[2019-06-09] MEDS: SYMBICORT 160-4.5 MCG INHALER INHALATION SCH ×2 (08:11→18:59)
[2019-06-09] MEDS: ACETAMINOPHEN TAB 500 MG TAB PO PRN (08:43)
[2019-06-09] MEDS ORDERED: ISOSORBIDE MONONITRATE ER 30 MG TAB.ER.24H PO SCH (09:00)
[2019-06-09] MEDS ORDERED: GABAPENTIN 300 MG CAP PO SCH (09:00)
[2019-06-09] MEDS ORDERED: ASPIRIN 325 MG TAB PO SCH ×2 (09:00→11:09)
[2019-06-09] MEDS ORDERED: ASPIRIN 81 MG PO SCH (09:00)
[2019-06-09] MEDS ORDERED: SODIUM CHLORIDE 0.9% 1,000 ML in EMPTY BAG 1 BAG IV ONE (09:47)
[2019-06-09] MEDS: NITROGLYCERIN OINT 1 INCH/GM PACKET TOPICAL SCH ×4 (10:02→23:46)
[2019-06-09] MEDS: HYDROCHLOROTHIAZIDE 12.5 MG CAP PO SCH (10:19)
[2019-06-09] MEDS: METOPROLOL SUCCINATE (ER) 50 MG TAB.ER.24H PO SCH (10:19)
[2019-06-09] MEDS: LISINOPRIL 10 MG TAB PO SCH (10:19)
[2019-06-09] MEDS: amLODIPine 5 MG TAB PO SCH (10:19)
[2019-06-09] MEDS: PANTOPRAZOLE 40 MG TABLET PO SCH ×2 (10:19→16:11)
[2019-06-09] MEDS: IPRATROPIUM BROMIDE 0.06% NASAL SPRAY (15 ML) EA NOSTRIL SCH (10:20)
[2019-06-09] MEDS: FLUTICASONE 50MCG/SPRAY NASAL 16GM EA NOSTRIL SCH (10:20)
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
--- NOTE | 2019-06-09 12:00 | ECHOF ---
Referral Reason:unstable angina MEASUREMENTS -------- HEIGHT: 182.9 cm WEIGHT: 106.6 kg BP: 174/96 RVIDd: 3.3 cm (< 3.3) IVSd: 1.1 cm (0.6 - 1.1) LVIDd: 4.7 cm (3.9 - 5.3) LVPWd: 1.4 cm (0.6 - 1.1) IVSs: 1.6 cm LVIDs: 2.6 cm LVPWs: 1.7 cm LAESV Index (A-L): 32.87 ml/m Ao Diam: 3.6 cm (2.0 - 3.7) AV Cusp: 2.5 cm (1.5 - 2.6) LA Diam: 4.0 cm (2.7 - 3.8) MV EXCURSION: 12.169 mm (> 18.000) MV EF SLOPE: 51 mm/s (70 - 150) EPSS: 1.8 cm MV E Travis: 0.67 m/s MV DecT: 319 ms MV A Travis: 0.86 m/s MV E/A Ratio: 0.78 AR PHT: 255 ms RAP: 5.00 mmHg RVSP: 10.82 mmHg TAPSE: 12.78 mm FINDINGS -------- Sinus rhythm with extra systolic beats. This was a technically adequate study. The left ventricular size is normal. There is mild concentric left ventricular hypertrophy. Overa ll left ventricular systolic function is normal with, an EF between 55 - 60 %. There is paradoxical /dysynergic septal motion consistent with post-operative status. The diastolic filling pattern is n ormal for the age of the patient 11.43. The right ventricle is mildly enlarged. The right ventricular systolic function is moderately impai red. LA is midly dilated 29-33ml/m2. The right atrial size is normal. The aortic valve is trileaflet and appears structurally normal. There is mild aortic regurgitation. The mitral valve is normal. Mild mitral regurgitation is present. The tricuspid valve appears structurally normal. Mild tricuspid regurgitation present. Right vent ricular systolic pressure is normal at < 35 mmHg. There is no pulmonic regurgitation present. The aortic root size is normal. IVC Not well visulized. There is no pericardial effusion. CONCLUSIONS -------- 1. Sinus rhythm with extra systolic beats. 2. This was a technically adequate study. 3. The left ventricular size is normal. 4. There is mild concentric left ventricular hypertrophy. 5. Overall left ventricular systolic function is normal with, an EF between 55 - 60 %. 6. There is paradoxical/dysynergic septal motion consistent with post-operative status. 7. The diastolic filling pattern is normal for the age of the patient 11.43 8. The right ventricle is mildly enlarged. 9. The right ventricular systolic function is moderately impaired. 10. LA is midly dilated 29-33ml/m2. 11. The right atrial size is normal. 12. The aortic valve is trileaflet and appears structurally normal. 13. There is mild aortic regurgitation. 14. The mitral valve is normal. 15. Mild mitral regurgitation is present. 16. The tricuspid valve appears structurally normal. 17. Mild tricuspid regurgitation present. 18. Right ventricular systolic pressure is normal at < 35 mmHg. 19. There is no pulmonic regurgitation present. 20. The aortic root size is normal. 21. IVC Not well visulized. 22. There is no pericardial effusion. SOFTWARE ENGINEER: Lexus Woods RDCS
[2019-06-09] MEDS: PREGABALIN 100 MG CAP PO SCH ×2 (16:11→20:11)
--- NOTE | 2019-06-09 19:59 | PN ---
PROGRESS NOTE DATE OF SERVICE: 06/09/2019 This 73-year-old gentleman who was admitted with chest pain is being closely monitored. Cardiology is planning possible cardiac cath tomorrow. No chest pain. No palpitations. No fever. PHYSICAL EXAMINATION: Alert and oriented x3. Pulse 91, blood pressure 98/60, respiration 18, temperature 97.4, pulse ox 94% on room air. HEENT: Conjunctivae normal. Oral mucosa moist. NECK: No jugular venous distention. No carotid bruit. No lymph node enlargement. CARDIOVASCULAR SYSTEM: S1, S2 muffled. No S3. No S4. RESPIRATORY SYSTEM: Breath sounds diminished at the bases. No rhonchi. No crackles. ABDOMEN: Soft, non-tender. No mass palpable. LEGS: No edema. No swelling. NERVOUS SYSTEM: No focal deficit. LABS: WBC 12.3, hemoglobin 15.7, triglycerides 208. ASSESSMENT: 1. Chest pain, possible unstable angina. Myocardial infarction ruled out. 2. History of coronary artery disease, coronary artery bypass grafting history. 3. Congestive heart failure history. 4. Chronic obstructive pulmonary disease. 5. Cerebrovascular accident, transient ischemic attack. 6. Gastroesophageal reflux disease. 7. Hypertension. 8. Hyperlipidemia. 9. History of myocardial infarction. 10.History of pneumonia. 11.History of syncopal episode. 12.History of bilateral tinnitus. 13.History of vertigo. 14.Remote history of nicotine dependence. RECOMMENDATIONS AND DISCUSSION: I recommend to continue current medications, continue with the monitoring, symptomatic treatment. Otherwise at this time I recommend beta blockers, antiplatelet agents and possible cardiac cath tomorrow by Cardiology. Guarded prognosis. Further recommendations to follow. MMODL / IJN: [id number] /
[2019-06-09] MEDS: MONTELUKAST 10 MG TAB PO SCH (20:11)
[2019-06-09] MEDS: PRAVASTATIN SODIUM 80 MG TAB PO SCH (20:11)
[2019-06-10] MEDS ORDERED: IPRATROPIUM-ALBUTEROL 3 ML NEB INHALATION PRN (00:31)
[2019-06-10] MEDS: NITROGLYCERIN OINT 1 INCH/GM PACKET TOPICAL SCH ×4 (05:14→22:34)
[2019-06-10] MEDS: FLUTICASONE 50MCG/SPRAY NASAL 16GM EA NOSTRIL SCH (06:44)
[2019-06-10] MEDS: IPRATROPIUM BROMIDE 0.06% NASAL SPRAY (15 ML) EA NOSTRIL SCH (06:44)
[2019-06-10] MEDS: METOPROLOL SUCCINATE (ER) 50 MG TAB.ER.24H PO SCH (06:45)
[2019-06-10] MEDS: LISINOPRIL 10 MG TAB PO SCH (06:45)
[2019-06-10] MEDS: HYDROCHLOROTHIAZIDE 12.5 MG CAP PO SCH (06:45)
[2019-06-10] MEDS: ISOSORBIDE MONONITRATE ER 30 MG TAB.ER.24H PO SCH (06:45)
[2019-06-10] MEDS: PANTOPRAZOLE 40 MG TABLET PO SCH ×2 (06:45→16:29)
[2019-06-10] MEDS: PREGABALIN 100 MG CAP PO SCH ×3 (06:45→19:58)
[2019-06-10] MEDS: amLODIPine 5 MG TAB PO SCH (06:45)
[2019-06-10] MEDS: ASPIRIN 81 MG PO SCH (06:45)
[2019-06-10] MEDS: SYMBICORT 160-4.5 MCG INHALER INHALATION SCH ×2 (07:22→19:45)
[2019-06-10] MEDS: IPRATROPIUM-ALBUTEROL 3 ML NEB INHALATION SCH ×4 (07:22→19:45)
[2019-06-10 07:56] LABS: Basophils # (A) 0.1 k/uL (0-0.2); Basophils % (A) 1 %; Eosinophils # (A) 0.5 k/uL (0-0.7); Eosinophils % (A) 4 %; HCT 44.9 % (39.0-53.0); Lymphocytes # (A) 1.6 k/uL (1.0-4.8); Lymphocytes % (A) 15 %; MCH 31.3 pg (25.0-35.0); MCHC 33.3 g/dL (31.0-37.0); MCV 93.9 fL (80.0-100.0); Mean Platelet Volume 7.2; Monocytes # (A) 0.6 k/uL (0-1.0); Monocytes % (A) 5 %; Neutrophils # (A) 7.9 k/uL (1.3-7.7); Neutrophils % (A) 74 %; Platelet Count 207 k/uL (150-450); RBC 4.78 m/uL (4.30-5.90); RDW 13.4 % (11.5-15.5); WBC 10.7 k/uL (3.8-10.6)
[2019-06-10 08:19] LABS: Calcium 10.1 mg/dL (8.4-10.2); Potassium 4.9 mmol/L (3.5-5.1)
[2019-06-10] MEDS ORDERED: ASPIRIN 325 MG TAB PO SCH (09:00)
[2019-06-10] MEDS ORDERED: LIDOCAINE 1% INJ 10MG/ML (20 ML MDV) ONE (09:01)
[2019-06-10] MEDS ORDERED: IV FLUID CONTINUATION 800 ML IV ONE (09:05)
[2019-06-10] MEDS ORDERED: MIDAZOLAM 2 MG/2 ML VIAL IVP ONE (09:18)
[2019-06-10] MEDS ORDERED: LIDOCAINE 1% INJ 10MG/ML (20 ML MDV) SQ ONE (09:19)
[2019-06-10] MEDS ORDERED: BIVALIRUDIN BOLUS 250 MG/50 ML IV ONE (09:46)
[2019-06-10] MEDS ORDERED: BIVALIRUDIN 250 MG in SODIUM CHLORIDE 0.9% 50 ML IV ONE (09:47)
[2019-06-10] MEDS ORDERED: HYDROmorphone 1 MG/ML 1 ML SYRINGE ONE (09:54)
[2019-06-10] MEDS ORDERED: IOPAMIDOL-370 125ML BTL INJ ONE (09:57)
[2019-06-10] MEDS ORDERED: HYDROmorphone 1 MG/ML 1 ML SYRINGE IVP ONE (09:57)
[2019-06-10] MEDS ORDERED: NITROGLYCERIN 1000MCG/10ML SYRINGE INTRACORON ONE (09:59)
[2019-06-10] MEDS ORDERED: CLOPIDOGREL 75 MG TAB ONE (10:09)
[2019-06-10] MEDS ORDERED: CLOPIDOGREL 75 MG TAB PO ONE (10:12)
[2019-06-10] MEDS ORDERED: NITROGLYCERIN SL TABS 0.4 MG TAB SUBLINGUAL PRN (10:22)
[2019-06-10] MEDS ORDERED: ATROPINE SULFATE 0.1 MG/ML 10ML SYRINGE IV PRN (10:22)
[2019-06-10] MEDS ORDERED: ZOLPIDEM 5 MG TAB PO PRN (10:22)
[2019-06-10] MEDS ORDERED: RX INFO: IV CONTRAST WAS GIVEN 1 EACH MISC MISCELLANE PRN (10:22)
[2019-06-10] MEDS ORDERED: MAG HYDROX/AL HYDROX/SIMETH 30 ML CUP PO PRN (10:22)
[2019-06-10] MEDS ORDERED: IOPAMIDOL-370 100ML BTL INJ ONE (10:28)
[2019-06-10] MEDS ORDERED: SODIUM CHLORIDE 0.9% 1,000 ML IV SCH (10:30)
[2019-06-10 11:01] LABS: Glucose,Whole Blood 92 mg/dL (75-99)
--- NOTE | 2019-06-10 11:14 | CC ---
CARDIAC CATHETERIZATION REPORT DATE OF SERVICE: June 10, 2019 PERFORMING PHYSICIAN: Jg Otto MD. PROCEDURE PERFORMED: 1. Selective left and right coronary angiogram. 2. MILES to LAD angiogram. 3. SVG to left circumflex angiogram. 4. Successful stenting of the distal right coronary artery using 3.5 x 12 mm Xience MANUEL with an excellent angiographic results and reduction of stenosis from 99% to 0%. 5. Successful stenting of the ostial right coronary artery using 4.0 x 15 mm Xience MANUEL which was post dilated using 4.5 mm balloon with an excellent angiographic results and reduction of stenosis from 80% to 0%. INDICATION: This is a very pleasant 73-year-old gentleman with history of coronary artery disease and prior coronary artery bypass grafting with unknown details, who presented to the hospital with chest discomfort concerning for angina. The patient was seen by Dr. Cruz who advised proceeding with coronary angiogram. APPROACH: Right common femoral artery. COMPLICATION: None. LEVEL OF SEDATION: Moderate with a sedation length of 60 minutes. PROCEDURE DESCRIPTION: After obtaining an informed consent, the patient was brought to the cardiac laboratory inspector. The right common femoral artery was cannulated using micropuncture technique under ultrasound guidance, the micropuncture wire passed easily, then I placed a 6-Maori sheath in the right common femoral artery. After that, I did selective left and right coronary angiogram using JL4 and JR4 catheters. MILES to LAD angiogram was performed using JR4 catheter. SVG to left circumflex angiogram was performed using JR4 catheter. I could not opacify any other graft. After that, I did leave heart catheterization using pigtail catheter. After that, I did intervene on the RCA, please see a separate paragraph for that. SELECTIVE CORONARY ANGIOGRAM: 1. The left main appeared to have mild disease only. It bifurcates into LCX and LAD. 2. The LCX is a large caliber vessel. It is a nondominant vessel. The left circumflex has mild to moderate diffuse disease. It gives rise in the midportion into OM1, which has an ostial lesion appeared to be in the range of 80-90 percent but the artery becomes small caliber vessel. 3. The LAD: The proximal LAD appeared to have a hazy lesion seems to be in the range of 70%. The mid LAD appeared to be angiographically normal. The LAD distally appeared to be angiographically normal. The LAD in the midportion appeared to have a stumped bypass. The LAD gives rise into a diagonal branch which appeared with competitive flow in it. 4. The RCA is a large caliber vessel, it is a dominant vessel. The RCA in the ostium portion appeared to have a lesion in the range of 70%. There was significant dampening in the pressure occur when the catheter crossed the lesion. The RCA distally has a critical lesion appeared to be in the range of 99.9%. CORONARY BYPASSES ANGIOGRAM: 1. The MILES to diagonal is patent. 2. The SVG to OM is patent. HEMODYNAMIC: The LVEDP was 16-18 mmHg. PCI OF THE RCA: Anticoagulation was initiated using Angiomax. Subsequently I did engage the RCA using JR4 guide. I did wire it using a run-through wire and the wire was advanced to the PDA of RCA. After that I did balloon angioplasty using 3.0 x 12 mm balloon before I deployed 3.5 x 12 mm Xience where the stent was positioned under fluoroscopy guidance and deployed under 20 atmospheres for 20 seconds. For the ostial lesion, I had pre- dilated using 3.5 x 12 mm balloon before I deployed 3 4.0 X 15 mm another Xience where the stent again was positioned under fluoroscopy guidance and deployed under its nominal pressure under 20 atmospheres for 20 seconds. I post dilated the stent using 4.5 mm balloon. The following angiogram showed excellent angiographic results and the procedure was completed without any complication. CONCLUSION: 1. Severe triple-vessel coronary artery disease. 2. Patent MILES to diagonal. 3. Patent SVG to OM. 4. Successful stenting of the distal and ostial right coronary artery with an excellent angiographic results. POSTPROCEDURE MANAGEMENT: 1. The patient needs to have a PCI of the LAD. 2. Follow up with the patient. MMODL / IJN: [id number] /
[2019-06-10 12:01] VITALS: BMI 30.2
[2019-06-10] MEDS: ACETAMINOPHEN TAB 500 MG TAB PO PRN (16:30)
[2019-06-10] MEDS: PRAVASTATIN SODIUM 80 MG TAB PO SCH (19:58)
[2019-06-10] MEDS: MONTELUKAST 10 MG TAB PO SCH (19:58)
--- NOTE | 2019-06-10 23:26 | PN ---
PROGRESS NOTE DATE OF SERVICE: 06/10/2019. This 73-year-old gentleman who was admitted with chest pain, had a cardiac cath yesterday by Dr. Otto. Fam Richard performed stenting of the distal RCA and as well as stenting of the ostial right RCA. The patient is being closely monitored. No chest pain. No palpitations. No fever. EXAM: Alert and oriented x3. Pulse 80, blood pressure 130/70, respiration 16, temperature 97.2, pulse ox 94% on room air HEENT: Conjunctivae normal. Oral mucosa moist. NECK: No jugular venous distention. No lymph node enlargement. CARDIOVASCULAR: S1, S2. RESPIRATORY: Diminished breath sounds at the bases. A few rhonchi, no crackles. ABDOMEN: Soft, nontender. LEGS: No swelling. NERVOUS SYSTEM: No focal deficits. LABS: WBC 10.7, glucose 104. ASSESSMENT: 1. Chest pain, possible unstable angina. Myocardial infarction ruled out, status post cardiac catheterization and stenting of the RCA x2. 2. History of coronary artery disease, coronary artery bypass graft history. 3. History of congestive heart failure history. 4. Chronic obstructive pulmonary disease. 5. History of cerebrovascular accident/transient ischemic attack history. 6. Gastroesophageal reflux disease. 7. Hypertension. 8. Hyperlipidemia. 9. History of myocardial infarction. 10.History pneumonia. 11.History of syncopal episode. 12.History of bilateral tinnitus. 13.History of vertigo. 14.Remote history of nicotine dependence. RECOMMENDATIONS AND DISCUSSION: Recommend to continue to monitor, continue symptomatic treatment, continue the antiplatelet agents. Closely with Cardiology. Increase ambulation. Guarded prognosis. Further recommendations to follow. MMODL / IJN: [id number] /
[2019-06-11] MEDS: NITROGLYCERIN OINT 1 INCH/GM PACKET TOPICAL SCH ×4 (04:51→23:00)
[2019-06-11] MEDS: PANTOPRAZOLE 40 MG TABLET PO SCH ×2 (06:07→17:16)
[2019-06-11 06:58] LABS: Basophils # (A) 0.1 k/uL (0-0.2); Basophils % (A) 1 %; Eosinophils # (A) 0.4 k/uL (0-0.7); Eosinophils % (A) 4 %; HCT 45.8 % (39.0-53.0); HGB 15.4 gm/dL (13.0-17.5); Lymphocytes # (A) 1.3 k/uL (1.0-4.8); Lymphocytes % (A) 14 %; MCH 31.6 pg (25.0-35.0); MCHC 33.7 g/dL (31.0-37.0); MCV 93.6 fL (80.0-100.0); Mean Platelet Volume 7.7; Monocytes # (A) 0.5 k/uL (0-1.0); Monocytes % (A) 5 %; Neutrophils # (A) 7.6 k/uL (1.3-7.7); Neutrophils % (A) 76 %; Platelet Count 234 k/uL (150-450); RBC 4.89 m/uL (4.30-5.90); RDW 13.3 % (11.5-15.5); WBC 9.9 k/uL (3.8-10.6)
[2019-06-11 07:16] LABS: African American GFR (CKD) >90 (>60 ml/min/1.73 sqM); Anion Gap 10 mmol/L; Blood Urea Nitrogen 22 mg/dL (9-20); Calcium 9.9 mg/dL (8.4-10.2); Carbon Dioxide 28 mmol/L (22-30); Chloride 99 mmol/L (98-107); Glucose 98 mg/dL (74-99); Non-African American GFR(CKD) 84 (>60 ml/min/1.73 sqM); Potassium 4.7 mmol/L (3.5-5.1); Sodium 137 mmol/L (137-145)
[2019-06-11] MEDS: SYMBICORT 160-4.5 MCG INHALER INHALATION SCH ×3 (07:59→21:22)
[2019-06-11] MEDS: IPRATROPIUM-ALBUTEROL 3 ML NEB INHALATION SCH ×4 (07:59→21:22)
[2019-06-11] MEDS: PREGABALIN 100 MG CAP PO SCH ×3 (08:25→22:54)
[2019-06-11] MEDS: IPRATROPIUM BROMIDE 0.06% NASAL SPRAY (15 ML) EA NOSTRIL SCH (08:25)
[2019-06-11] MEDS: LISINOPRIL 10 MG TAB PO SCH (08:26)
[2019-06-11] MEDS: HYDROCHLOROTHIAZIDE 12.5 MG CAP PO SCH (08:26)
[2019-06-11] MEDS: amLODIPine 5 MG TAB PO SCH (08:26)
[2019-06-11] MEDS: CLOPIDOGREL 75 MG TAB PO SCH (08:26)
[2019-06-11] MEDS: ASPIRIN 81 MG PO SCH (08:26)
[2019-06-11] MEDS: METOPROLOL SUCCINATE (ER) 50 MG TAB.ER.24H PO SCH (08:26)
[2019-06-11] MEDS: ISOSORBIDE MONONITRATE ER 30 MG TAB.ER.24H PO SCH (08:26)
[2019-06-11] MEDS: FLUTICASONE 50MCG/SPRAY NASAL 16GM EA NOSTRIL SCH (09:18)
--- NOTE | 2019-06-11 14:57 | PN ---
PROGRESS NOTE Mr. Kovacs is a 73-year-old gentleman that is admitted to hospital with unstable angina, underwent cardiac catheterization yesterday and had angioplasty of distal right coronary artery. Both the ostium and distal RCA were stented. The patient needs stenting of the LAD and this will be done by Dr. Otto tomorrow. The patient is doing well and is free of symptoms. On exam, comfortable at rest. Vital signs are stable. Chest exam reveals good air entry bilaterally. Heart exam reveals first and second heart sounds. No gallop. Exam of extremities did not reveal any edema. Labs show a hemoglobin of 15.4, platelet count is 230, potassium is 4.7 creatinine is 0.9. LDL cholesterol is 91. ASSESSMENT: Unstable angina status post catheterization and angioplasty. Patient will have staged angioplasty of LAD tomorrow. In the meantime, he will be continued on the optimal medical therapy including aspirin, Norvasc, Plavix, HydroDIURIL, Imdur, Zestril, Toprol, and Pravachol. MMODL / IJN: [id number] /
--- NOTE | 2019-06-11 18:42 | PN ---
PROGRESS NOTE DATE OF SERVICE: 06/11/2019 This 73-year-old gentleman who was admitted with chest pain had cardiac catheterization and stenting of the RCA. Dr. Cruz is following the patient closely and recommending staged angioplasty of the LAD tomorrow. No chest pain. No palpitations. No fever. PHYSICAL EXAMINATION: Alert and oriented x3. Pulse 77, blood pressure 94/50, respiration 16, temperature normal, pulse ox 94% on room air. HEENT: Conjunctivae normal. Oral mucosa moist. NECK: No jugular venous distention. No carotid bruit. No lymph node enlargement. CARDIOVASCULAR SYSTEM: S1, S2 muffled. RESPIRATORY SYSTEM: Breath sounds diminished at the bases. A few scattered rhonchi and crackles. ABDOMEN: Soft, non-tender. LEGS: No edema. No swelling. NERVOUS SYSTEM: No focal deficit. LABS: CBC within normal limits. Other labs are noted. ASSESSMENT: 1. Chest pain, possible unstable angina. Myocardial infarction ruled out. Status post cardiac catheterization and stenting of the RCA x2. 2. For stenting of the left anterior descending coronary artery. 3. History of coronary artery disease, coronary artery bypass grafting history. 4. History of congestive heart failure. 5. Chronic obstructive pulmonary disease. 6. History of cerebrovascular accident, transient ischemic attack. 7. Gastroesophageal reflux disease. 8. Hypertension. 9. Hyperlipidemia. 10.History of myocardial infarction. 11.History of pneumonia. 12.History of syncopal episode. 13.History of bilateral retinitis. 14.History of vertigo. 15.Remote history of nicotine dependence. RECOMMENDATIONS AND DISCUSSION: I recommend to continue current medications, continue with the monitoring, symptomatic treatment. Antiplatelet agents. Prognosis is guarded because of multiple complex medical issues. Further recommendations to follow. MMODL / IJN: [id number] /
[2019-06-11] MEDS: PRAVASTATIN SODIUM 80 MG TAB PO SCH (20:05)
[2019-06-11] MEDS: MONTELUKAST 10 MG TAB PO SCH (20:05)
[2019-06-12] MEDS: NITROGLYCERIN OINT 1 INCH/GM PACKET TOPICAL SCH ×5 (06:24→23:51)
[2019-06-12] MEDS: PANTOPRAZOLE 40 MG TABLET PO SCH ×2 (06:24→15:56)
[2019-06-12] MEDS: ASPIRIN 81 MG PO SCH (06:36)
[2019-06-12] MEDS: CLOPIDOGREL 75 MG TAB PO SCH (06:36)
[2019-06-12] MEDS: amLODIPine 5 MG TAB PO SCH (06:36)
[2019-06-12] MEDS ORDERED: LIDOCAINE 1% INJ 10MG/ML (20 ML MDV) ONE (07:00)
[2019-06-12] MEDS ORDERED: VERAPAMIL 2.5 MG/ML 2 ML AMP ONE (07:00)
[2019-06-12] MEDS ORDERED: SODIUM CHLORIDE 0.9% 1,000 ML IV ONE (07:00)
[2019-06-12] MEDS ORDERED: LIDOCAINE 1% INJ 10MG/ML (20 ML MDV) SQ ONE (07:13)
[2019-06-12] MEDS ORDERED: MIDAZOLAM 2 MG/2 ML VIAL IVP ONE (07:13)
[2019-06-12] MEDS: VERAPAMIL SYRINGE (5 MG/10 ML) INTRAARTER ONE ×2 (07:15→07:44)
[2019-06-12] MEDS ORDERED: BIVALIRUDIN BOLUS 250 MG/50 ML IV ONE (07:18)
[2019-06-12] MEDS ORDERED: BIVALIRUDIN 250 MG in SODIUM CHLORIDE 0.9% 50 ML IV ONE (07:19)
[2019-06-12] MEDS ORDERED: fentaNYL (PF) 50 MCG/ML 2 ML AMP ONE (07:19)
[2019-06-12] MEDS ORDERED: fentaNYL (PF) 50 MCG/ML 2 ML AMP IVP ONE (07:20)
[2019-06-12] MEDS: NITROGLYCERIN 1000MCG/10ML SYRINGE INTRACORON ONE ×2 (07:32→07:43)
[2019-06-12] MEDS ORDERED: IOPAMIDOL-370 125ML BTL INJ ONE (07:45)
[2019-06-12] MEDS ORDERED: CLOPIDOGREL 75 MG TAB ONE (07:46)
[2019-06-12] MEDS ORDERED: RX INFO: IV CONTRAST WAS GIVEN 1 EACH MISC MISCELLANE PRN (07:50)
[2019-06-12] MEDS ORDERED: ZOLPIDEM 5 MG TAB PO PRN (07:50)
[2019-06-12] MEDS ORDERED: MAG HYDROX/AL HYDROX/SIMETH 30 ML CUP PO PRN (07:50)
[2019-06-12] MEDS ORDERED: ATROPINE SULFATE 0.1 MG/ML 10ML SYRINGE IV PRN (07:50)
[2019-06-12] MEDS ORDERED: NITROGLYCERIN SL TABS 0.4 MG TAB SUBLINGUAL PRN (07:50)
[2019-06-12] MEDS ORDERED: CLOPIDOGREL 75 MG TAB PO ONE (07:51)
[2019-06-12] MEDS ORDERED: SODIUM CHLORIDE 0.9% 1,000 ML IV SCH (08:00)
[2019-06-12] MEDS: IPRATROPIUM-ALBUTEROL 3 ML NEB INHALATION SCH ×4 (08:12→19:54)
[2019-06-12] MEDS: SYMBICORT 160-4.5 MCG INHALER INHALATION SCH ×2 (08:12→19:54)
[2019-06-12] MEDS: ISOSORBIDE MONONITRATE ER 30 MG TAB.ER.24H PO SCH (08:32)
[2019-06-12] MEDS: METOPROLOL SUCCINATE (ER) 50 MG TAB.ER.24H PO SCH (08:32)
[2019-06-12] MEDS: HYDROCHLOROTHIAZIDE 12.5 MG CAP PO SCH (08:32)
[2019-06-12] MEDS: LISINOPRIL 10 MG TAB PO SCH (08:32)
[2019-06-12] MEDS: PREGABALIN 100 MG CAP PO SCH ×3 (08:32→19:43)
[2019-06-12] MEDS: FLUTICASONE 50MCG/SPRAY NASAL 16GM EA NOSTRIL SCH (08:34)
--- NOTE | 2019-06-12 09:26 | PTCA ---
PERCUTANEOUSTRANS CORORONARY ANGIOGRAPHY DATE OF SERVICE: 06/12/2019 PERFORMING PHYSICIAN: Jg Otto MD. PROCEDURE PERFORMED: Successful stenting of the proximal left anterior descending artery using a 3.0 x 15 mm Xience drug-eluting stent which was post dilated using a 3.25 mm noncompliant balloon with excellent angiographic results and reduction of stenosis from 70% to 0%. INDICATION: This is a 73-year-old gentleman with history of coronary artery disease who presented to the hospital with chest discomfort a few days ago. The chest discomfort was concerning for severe underlying coronary artery disease. He underwent a heart catheterization which revealed severe triple-vessel coronary artery disease with patent MILES to diagonal and patent SVG to OM. At that point he underwent successful stenting of the distal and ostial right coronary artery with excellent angiographic results and was brought today to undergo a PCI of the LAD. APPROACH: Right radial artery. COMPLICATIONS: None. LEVEL OF SEDATION: Moderate, with sedation length of 35 minutes. PROCEDURE DESCRIPTION: After obtaining informed consent, the patient was brought to the cardiac labor commissioner. The right radial artery was cannulated using micropuncture technique. The micropuncture wire passed easily. Then I placed a 6-Estonian sheath at the right radial artery. At that point I gave the patient 2 mg of verapamil IA and anticoagulation was initiated using Angiomax with bolus and drip per protocol. Subsequently I did engage the left main using a JL3.5 guide. I did wire the LAD using a Whisper wire and also I wired the diagonal branch of the LAD. At that point, I did a balloon angioplasty to the LAD using a 2.5 x 12 mm balloon before I deployed a 3.0 x 15 mm Xience MANUEL where the stent was positioned under fluoroscopic guidance and deployed under 12 atmospheres for 20 seconds. The stent was post dilated using a 3.25 x 10 mm NC balloon which was inflated under 20 atmospheres for 20 seconds. The following angiogram showed excellent angiographic results and the procedure was completed without any complication. POST-PROCEDURE MANAGEMENT: 1. Dual anti-platelet therapy. 2. Risk factor modifications. 3. Follow up with the patient. MMODL / IJN: [id number] /
[2019-06-12] MEDS: ACETAMINOPHEN TAB 500 MG TAB PO PRN (11:04)
[2019-06-12] MEDS: IPRATROPIUM BROMIDE 0.06% NASAL SPRAY (15 ML) EA NOSTRIL SCH (15:56)
[2019-06-12] MEDS: PRAVASTATIN SODIUM 80 MG TAB PO SCH (19:42)
[2019-06-12] MEDS: MONTELUKAST 10 MG TAB PO SCH (19:43)
--- NOTE | 2019-06-12 21:08 | PN ---
PROGRESS NOTE DATE OF SERVICE: 06/12/2019 This 73-year-old gentleman who was admitted with chest pain also had unstable angina. The patient also had stenting of the LAD today as a staged procedure. No chest pain. No palpitations. No fever. EXAM: Alert and oriented x 2. Pulse is 76. Blood pressure 123/77, respirations 18. Temperature 97.2, pulse ox 98% on room air. HEENT: Conjunctivae normal. NECK: No JVD. CARDIOVASCULAR: S1, S2 muffled. RESPIRATORY SYSTEM: Breath sounds diminished at the bases. Scattered rhonchi. No crackles. ABDOMEN is soft, nontender. No mass palpable. LEGS no edema. No swelling. LABS: CBC within normal limits. BMP noted. ASSESSMENT: 1. Chest pain, possible unstable angina status post cardiac catheterization and stenting of the RCA and LAD. 2. Coronary artery disease, coronary artery bypass grafting history. 3. History of congestive heart failure. 4. Chronic chronic obstructive pulmonary disease. 5. History of cerebrovascular accident, transient ischemic attack. 6. Gastroesophageal reflux disease. 7. Hypertension. 8. Hyperlipidemia. 9. History of myocardial infarction. 10.History of pneumonia. 11.History of syncopal episode. 12.History of tinnitus. 13.History of vertigo. 14.Remote history of nicotine dependence. RECOMMENDATIONS AND DISCUSSION: I recommend to continue current medications, management. Continue with antiplatelet agents. Increase ambulation. Otherwise, the patient is stable, discharge in the next 24 hours if okay with cardiology. Further recommendation to follow. MMODL / IJN: [id number] /
[2019-06-13] MEDS: NITROGLYCERIN OINT 1 INCH/GM PACKET TOPICAL SCH ×2 (02:32→11:45)
[2019-06-13] MEDS: ACETAMINOPHEN TAB 500 MG TAB PO PRN (06:14)
[2019-06-13] MEDS: PANTOPRAZOLE 40 MG TABLET PO SCH ×2 (06:15→12:50)
[2019-06-13 06:36] LABS: African American GFR (CKD) >90 (>60 ml/min/1.73 sqM); Non-African American GFR(CKD) 86 (>60 ml/min/1.73 sqM)
[2019-06-13 07:56] VITALS: RESP 18
[2019-06-13] MEDS: SYMBICORT 160-4.5 MCG INHALER INHALATION SCH (08:06)
[2019-06-13] MEDS: IPRATROPIUM-ALBUTEROL 3 ML NEB INHALATION SCH ×3 (08:06→12:50)
[2019-06-13] MEDS: ASPIRIN 81 MG PO SCH (08:07)
[2019-06-13] MEDS: FLUTICASONE 50MCG/SPRAY NASAL 16GM EA NOSTRIL SCH (08:07)
[2019-06-13] MEDS: CLOPIDOGREL 75 MG TAB PO SCH (08:07)
[2019-06-13] MEDS: amLODIPine 5 MG TAB PO SCH (08:07)
[2019-06-13] MEDS: PREGABALIN 100 MG CAP PO SCH ×2 (08:07→12:50)
[2019-06-13] MEDS: HYDROCHLOROTHIAZIDE 12.5 MG CAP PO SCH (08:07)
[2019-06-13] MEDS: METOPROLOL SUCCINATE (ER) 50 MG TAB.ER.24H PO SCH (08:07)
[2019-06-13] MEDS: IPRATROPIUM BROMIDE 0.06% NASAL SPRAY (15 ML) EA NOSTRIL SCH (08:08)
[2019-06-13 11:45] VITALS: BP 153/75; TEMP 97.5
[2019-06-13] MEDS: LISINOPRIL 10 MG TAB PO SCH (11:45)
[2019-06-13] MEDS: ISOSORBIDE MONONITRATE ER 30 MG TAB.ER.24H PO SCH (11:45)
[2019-06-13 11:47] VITALS: PULSE 80
--- NOTE | 2019-06-13 12:02 | PN ---
PROGRESS NOTE 73-year-old gentleman that is admitted to hospital with unstable angina. Underwent cardiac catheterization, angioplasty of 2 vessels. This morning, he is doing well and is free of symptoms. The patient underwent angioplasty of the LAD. He already had stent of the right coronary artery and had prior bypass surgery. PHYSICAL EXAM: Comfortable at rest. Vital signs are stable. There is no jugular venous distention. Chest exam reveals good air entry bilaterally. Heart exam reveals first and second heart sounds. No gallop. Exam of extremities did not reveal any edema. MEDICATIONS: Include aspirin, Norvasc 5 daily, Plavix 75 daily, HydroDIURIL, Imdur 30 daily, Toprol- XL 50 daily, Protonix, Pravachol, Restoril and Ambien. ASSESSMENT: Coronary artery disease, status post multivessel angioplasty. PLAN: The patient is stable for discharge. Follow up with his director of primary. WALLY / CARMELO: [id number] /
--- NOTE | 2019-06-14 07:50 | DS ---
DISCHARGE SUMMARY DATE OF SERVICE: 06/13/2019 FINAL DIAGNOSES: 1. Chest pain possible unstable angina, status post cardiac catheterization and stenting of the RCA and LAD. 2. Coronary artery disease, coronary artery bypass grafting history. 3. History of congestive heart failure. 4. Chronic obstructive pulmonary disease. 5. History of cerebrovascular accident, transient ischemic attack. 6. Gastroesophageal reflux disease. 7. Hypertension. 8. Hyperlipidemia. 9. History of myocardial infarction. 10.History of pneumonia. 11.History of syncope episode. 12.History of tinnitus. 13.History of vertigo. 14.Remote history of nicotine dependence. DISCHARGE DISPOSITION: The patient will be discharged in stable condition with guarded prognosis. HISTORY OF PRESENT ILLNESS: This is a 73-year-old gentleman with past medical problems admitted with chest pain. Patient underwent cardiac catheterization and stenting of the RCA and then LAD by Dr. Otto. Please refer to Cardiology notes for further information. Patient improved significantly. On exam, vitals are stable. CARDIOVASCULAR SYSTEM: S1, S2. ABDOMEN: Soft. NERVOUS SYSTEM: No focal deficit. The patient will be discharged in a stable condition with guarded prognosis with the following advice and medication Diet is cardiac diet. Follow up with Dr. Abdi in the [facility] as recommended. Follow up with Dr. Otto as recommended. DISCHARGE MEDICATIONS ARE: 1. Atrovent nasal drops. 2. Claritin 10 mg p.o. daily. 3. Ecotrin 81 mg. 4. Fluticasone nasal spray 1 spray daily. 5. Hydrochlorothiazide 12.5 mg p.o. daily. 6. Imdur 30 mg p.o. daily. 7. Lyrica 100 mg p.o. t.i.d. 8. Nitrostat 0.4 mg sublingual p.r.n. 9. Norvasc 5 mg p.o. daily. 10.Pravachol 80 mg q.h.s. 11.Prilosec 40 mg b.i.d. 12.Singulair 10 mg q.h.s. 13.Spiriva 1 puff daily. 14.Symbicort 160/4.5 two puffs b.i.d. 15.Toprol-XL 50 mg p.o. daily. 16.Ventolin 1 puff q.6 p.r.n. 17.Zestril 10 mg p.o. daily. 18.Nitrostat 0.4 sublingual p.r.n. 19.Plavix 75 mg p.o. daily. Once again the patient will be discharged in a stable condition with guarded prognosis. MMODL / IJN: [id number] /
== END 2019-06-13 13:30 | disposition home or self-care (01) | DRG 247 ==
LOC: EC 16:13 → 1SOBS 17:36 → 2SICU 06-10 10:25 → 3SCARD 06-10 15:34 → OBSVTOIN 06-11 15:05 → 3SCARD 06-12 23:00
PROVIDERS: ADMIT Hospitalist; ATTEND Hospitalist
PROC: 4A023N7 Measurement of Cardiac Sampling and Pressure, Left Heart, Percutaneous Approach (ICD-10-PCS; 2019-06-10)
PROC: B2111ZZ Fluoroscopy of Multiple Coronary Arteries using Low Osmolar Contrast (ICD-10-PCS; 2019-06-10)
PROC: B2121ZZ Fluoroscopy of Single Coronary Artery Bypass Graft using Low Osmolar Contrast (ICD-10-PCS; 2019-06-10)
PROC: B2181ZZ Fluoroscopy of Left Internal Mammary Bypass Graft using Low Osmolar Contrast (ICD-10-PCS; 2019-06-10)
PROC: 027035Z Dilation of Coronary Artery, One Artery with Two Drug-eluting Intraluminal Devices, Percutaneous Approach (ICD-10-PCS; principal; 2019-06-10 07:30)
PROC: 027034Z Dilation of Coronary Artery, One Artery with Drug-eluting Intraluminal Device, Percutaneous Approach (ICD-10-PCS; 2019-06-12)
DX: I25.110 Atherosclerotic heart disease of native coronary artery with unstable angina pectoris (principal); H30.93 Unspecified chorioretinal inflammation, bilateral; I11.0 Hypertensive heart disease with heart failure; I50.9 Heart failure, unspecified; J44.9 Chronic obstructive pulmonary disease, unspecified; G62.9 Polyneuropathy, unspecified; I44.0 Atrioventricular block, first degree; K21.9 Gastro-esophageal reflux disease without esophagitis; E78.5 Hyperlipidemia, unspecified; H93.13 Tinnitus, bilateral; I25.2 Old myocardial infarction; Z99.81 Dependence on supplemental oxygen; Z77.098 Contact with and (suspected) exposure to other hazardous, chiefly nonmedicinal, chemicals; Z79.82 Long term (current) use of aspirin; Z79.51 Long term (current) use of inhaled steroids; Z79.899 Other long term (current) drug therapy; Z87.891 Personal history of nicotine dependence; Z95.1 Presence of aortocoronary bypass graft; Z86.73 Personal history of transient ischemic attack (TIA), and cerebral infarction without residual deficits; Z87.01 Personal history of pneumonia (recurrent); Z86.79 Personal history of other diseases of the circulatory system; Z87.81 Personal history of (healed) traumatic fracture; Z87.19 Personal history of other diseases of the digestive system; Z98.890 Other specified postprocedural states; Z98.41 Cataract extraction status, right eye; Z98.42 Cataract extraction status, left eye; Z96.1 Presence of intraocular lens; Z82.49 Family history of ischemic heart disease and other diseases of the circulatory system; Z80.9 Family history of malignant neoplasm, unspecified
CPT/HCPCS: 36415; 71046; 80048; 80053; 80061; 82565; 83735; 83880; 84484; 85025; 85610; 85730; 93005; 93306; 93455; 94640; 94760; 99285; C1874

== ENCOUNTER 2020-04-07 16:15 | Inpatient (IN) | payer OTHER, MEDICARE ==
[2020-04-07] MEDS ORDERED: SODIUM CHLORIDE 0.9% 1,000 ML IV STA (16:17)
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
[2020-04-07 16:38] LABS: Basophils # (A) 0.1 k/uL (0-0.2); Basophils % (A) 1 %; Eosinophils # (A) 0.2 k/uL (0-0.7); Eosinophils % (A) 3 %; HCT 43.1 % (39.0-53.0); HGB 14.2 gm/dL (13.0-17.5); Lymphocytes # (A) 1.1 k/uL (1.0-4.8); Lymphocytes % (A) 14 %; MCH 30.2 pg (25.0-35.0); MCHC 32.8 g/dL (31.0-37.0); Mean Platelet Volume 8.8; Monocytes # (A) 0.4 k/uL (0-1.0); Monocytes % (A) 6 %; Neutrophils # (A) 5.7 k/uL (1.3-7.7); Neutrophils % (A) 74 %; Platelet Count 175 k/uL (150-450); RBC 4.69 m/uL (4.30-5.90); RDW 12.9 % (11.5-15.5); WBC 7.6 k/uL (3.8-10.6)
[2020-04-07 16:44] LABS: Chloride 99 mmol/L (98-107)
[2020-04-07 16:46] LABS: African American GFR (CKD) >90 (>60 ml/min/1.73 sqM); Albumin 4.3 g/dL (3.5-5.0); Anion Gap 7 mmol/L; Appearance,Urine Clear (Clear); Bilirubin,Urine Negative (Negative); Blood Urea Nitrogen 14 mg/dL (9-20); Blood,Urine Negative (Negative); Calcium 9.1 mg/dL (8.4-10.2); Carbon Dioxide 25 mmol/L (22-30); Color,Urine Yellow; Glucose 125 mg/dL (74-99); Glucose,Urine (UA) Negative (Negative); Ketones,Urine Negative (Negative); Leukocyte Esterase,Urine Negative (Negative); Nitrite,Urine Negative (Negative); Non-African American GFR(CKD) 90 (>60 ml/min/1.73 sqM); Partial Thromboplastin Time 23.6 sec (22.0-30.0); Phosphorus 2.6 mg/dL (2.5-4.5); Potassium 4.1 mmol/L (3.5-5.1); Protein,Urine Negative (Negative); Prothrombin Time 10.2 sec (9.0-12.0); Sodium 131 mmol/L (137-145); Specific Gravity,Urine 1.012 (1.001-1.035); Total Bilirubin 0.8 mg/dL (0.2-1.3); Total Protein 6.8 g/dL (6.3-8.2); Urobilinogen,Urine <2.0 mg/dL (<2.0)
[2020-04-07 16:47] LABS: ALT 15 U/L (4-49); AST 23 U/L (17-59); Alkaline Phosphatase 71 U/L (38-126); Creatine Kinase 102 U/L (55-170); Magnesium 1.8 mg/dL (1.6-2.3)
--- NOTE | 2020-04-07 17:25 | XR ---
EXAMINATION TYPE: XR chest 2V DATE OF EXAM: 04/07/2020 COMPARISON: 06/08/2019 INDICATION: Dizziness weakness TECHNIQUE: Frontal and lateral views of the chest are obtained. FINDINGS: The heart size is mildly prominent. The pulmonary vasculature is normal. Bibasilar infiltrates are present. Some scarring is in the right apex.. Hyperinflation flattening th e diaphragms is present compatible COPD IMPRESSION: 1. COPD. 2. Bibasilar infiltrates. Correlate for atelectasis or pneumonia. 3. Chronic changes right lung apex.
[2020-04-07] MEDS ORDERED: ASPIRIN 81 MG PO STA (17:46)
[2020-04-07] MEDS ORDERED: PNEUMONIA PROTOCOL UTILIZED 1 EACH MISC PO PRN (17:49)
[2020-04-07] MEDS ORDERED: IPRATROPIUM-ALBUTEROL 3 ML NEB INHALATION PRN (17:49)
[2020-04-07] MEDS ORDERED: AZITHROMYCIN 500 MG in SODIUM CHLORIDE 0.9% 250 ML IVPB STA (17:49)
[2020-04-07] MEDS: SODIUM CHLORIDE 0.9% 1,000 ML IV SCH (19:16)
[2020-04-07] MEDS ORDERED: NITROGLYCERIN SL TABS 0.4 MG TAB SUBLINGUAL PRN (20:46)
[2020-04-07] MEDS ORDERED: ALBUTEROL NEBULIZED 2.5 MG/3 ML INHALATION PRN (20:46)
[2020-04-07] MEDS ORDERED: LORATADINE 10 MG TAB PO PRN (20:46)
[2020-04-07] MEDS ORDERED: ACETAMINOPHEN TAB 325 MG TAB PO PRN (20:56)
[2020-04-07] MEDS ORDERED: ONDANSETRON 4 MG/2 ML VIAL IVP PRN (20:56)
[2020-04-07] MEDS: METOPROLOL SUCCINATE (ER) 100 MG TAB.ER.24H PO SCH (21:09)
[2020-04-07] MEDS: MELATONIN 5 MG TABLET PO PRN (21:32)
[2020-04-07] MEDS: PREGABALIN 100 MG CAP PO SCH (21:32)
[2020-04-07] MEDS: MONTELUKAST 10 MG TAB PO SCH (21:32)
[2020-04-07] MEDS: PRAVASTATIN SODIUM 80 MG TAB PO SCH (21:32)
[2020-04-07] MEDS: CLOPIDOGREL 75 MG TAB PO SCH (21:32)
[2020-04-08] MEDS: PANTOPRAZOLE 40 MG TABLET PO SCH ×2 (06:43→17:23)
[2020-04-08] MEDS: SODIUM CHLORIDE 0.9% 1,000 ML IV SCH (06:43)
[2020-04-08 08:19] LABS: HGB 13.9 gm/dL (13.0-17.5); MCH 31.7 pg (25.0-35.0); MCHC 33.9 g/dL (31.0-37.0); MCV 93.4 fL (80.0-100.0); Mean Platelet Volume 8.7; Platelet Count 153 k/uL (150-450); RBC 4.39 m/uL (4.30-5.90); RDW 13.5 % (11.5-15.5); WBC 7.7 k/uL (3.8-10.6)
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
[2020-04-08 08:31] LABS: African American GFR (CKD) >90 (>60 ml/min/1.73 sqM); Anion Gap 4 mmol/L; Blood Urea Nitrogen 11 mg/dL (9-20); Calcium 8.6 mg/dL (8.4-10.2); Carbon Dioxide 30 mmol/L (22-30); Chloride 100 mmol/L (98-107); Cholesterol 134 mg/dL (<200); Glucose 96 mg/dL (74-99); HDL Cholesterol 44 mg/dL (40-60); LDL Cholesterol,Calculated 68 mg/dL (0-99); Non-African American GFR(CKD) 90 (>60 ml/min/1.73 sqM); Potassium 3.9 mmol/L (3.5-5.1); Sodium 134 mmol/L (137-145); Triglycerides 110 mg/dL (<150)
[2020-04-08] MEDS: SYMBICORT 160-4.5 MCG INHALER INHALATION SCH ×2 (08:40→20:52)
[2020-04-08] MEDS: IPRATROPIUM 0.5 MG/2.5 ML NEBU INHALATION SCH ×2 (08:40→11:49)
[2020-04-08] MEDS: LOSARTAN 50 MG TAB PO SCH ×2 (08:55→20:39)
[2020-04-08] MEDS: ASPIRIN 81 MG PO SCH (08:56)
[2020-04-08] MEDS: ISOSORBIDE MONONITRATE ER 30 MG TAB.ER.24H PO SCH (08:56)
[2020-04-08] MEDS: AZITHROMYCIN 500 MG TAB PO SCH (08:56)
[2020-04-08] MEDS: METOPROLOL SUCCINATE (ER) 100 MG TAB.ER.24H PO SCH (08:56)
[2020-04-08] MEDS: ENOXAPARIN 40 MG/0.4 ML SYRINGE SQ SCH (08:57)
[2020-04-08] MEDS: FLUTICASONE 50MCG/SPRAY NASAL 16GM EA NOSTRIL SCH (08:57)
[2020-04-08] MEDS ORDERED: ASPIRIN 325 MG TAB PO SCH (09:00)
[2020-04-08] MEDS ORDERED: LOSARTAN 50 MG TAB PO SCH (09:00)
[2020-04-08] MEDS: CLOPIDOGREL 75 MG TAB PO SCH (09:03)
[2020-04-08] MEDS: PREGABALIN 100 MG CAP PO SCH ×3 (09:06→20:38)
[2020-04-08] MEDS: UREA 20% TOPICAL SCH (11:19)
[2020-04-08] MEDS ORDERED: IPRATROPIUM-ALBUTEROL 3 ML NEB INHALATION PRN (12:58)
[2020-04-08] MEDS ORDERED: ALPRAZolam 0.25 MG TAB PO PRN (12:58)
[2020-04-08] MEDS ORDERED: HYDROcodone/APAP 5-325MG 1 EACH TAB PO PRN (12:58)
[2020-04-08] MEDS: methylPREDNISolone SOD SUCCI 125 MG/2 ML VIAL IV SCH ×3 (13:09→23:53)
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
[2020-04-08] MEDS: MENTHOL (NICE) LOZENGE MUCOUS MEM PRN ×2 (13:29→17:24)
--- NOTE | 2020-04-08 15:03 | HP ---
HISTORY AND PHYSICAL DATE OF SERVICE: 04/08/2020 CHIEF COMPLAINTS: Weakness, dizziness, cough, sputum and shortness of breath. HISTORY OF PRESENT ILLNESS: This 74-year-old gentleman with a past medical history of multiple medical problems including CAD, history of CHF, COPD, CVA, TIA, GERD, hypertension, history of myocardial infarction being followed by Dr. Abdi in the [facility], also has history of CAD, CABG. The patient is not feeling well over the past several days. The patient had dizziness, syncopal episodes, cough, shortness of breath. Multiple PVCs, bigeminy, and the patient was symptomatic and patient was lightheaded and dizzy. The patient came to [facility] and admitted to the hospital for further evaluation and treatment. Chest x-ray showed possible pneumonia, bilateral scarring was also noted. NT proBNP is not available. Troponins were less than 0.012, 0.013 and 0.015. UA is unremarkable. The patient also had Covid-19 test pending at this time. PAST MEDICAL HISTORY: History of CAD, history of COPD, CVA, TIA, GERD, hypertension, hyperlipidemia, history of CAD, CABG. MEDICATIONS: Home medications are urea cream, Spiriva 1 puff daily. Lyrica 100 mg daily. Ecotrin 81 mg daily, Lyrica and Pravachol, omeprazole, Nitrostat, Singulair, Toprol-XL, losartan, Imdur, hydrochlorothiazide, Flonase, Plavix, Symbicort, Ventolin. ALLERGIES: None. FAMILY HISTORY: Family history of CAD, dementia and myocardial infarction. SOCIAL HISTORY: Previous history of smoking. No history of current smoking. No alcohol intake. REVIEW OF SYSTEMS: ENT: No diminished vision. No diminished hearing. Cardio system: As mentioned earlier. Respiratory: As mentioned earlier. GI: No nausea or vomiting. no dysuria. Nervous system: No numbness or weakness. Allergy/Immunology: No asthma or hayfever. MUSCULOSKELETAL as mentioned earlier. Hematology: No history of anemia. Endocrine: No history of diabetes or hypothyroidism. Constitutional: As mentioned earlier. DERMATOLOGY: Negative. RHEUMATOLOGY negative. PSYCHIATRY as mentioned earlier. PHYSICAL EXAMINATION: Alert and oriented times three. Pulse is 64. Blood pressure 160/90, respiration 18, temperature 97.8, pulse ox is 97% on 2 L. HEENT: Conjunctivae normal. Oral mucosa moist. NECK is no jugular venous distention. No carotid bruit. No lymph node enlargement. Cardiovascular systems: S1, S2 muffled. Respirations: Breath sounds diminished in the bases. Scattered rhonchi and crackles. ABDOMEN: Soft, nontender. No mass palpable. LEGS: No edema. NERVOUS SYSTEM: Higher functions as mentioned earlier. Moves all four limbs. No focal deficits. Lymphatics: No lymph nodes palpable in the neck, axillae or groin. SKIN: No ulcer, no rash. No bleeding. JOINTS: No active deforming arthropathy. LABS: CBC within normal limits. Sodium 130, potassium 3.9. ASSESSMENT: 1. Chronic obstructive pulmonary disease exacerbation with possible bilateral pneumonia with bronchopneumonia. 2. History of weakness and multiple PVCs on admission. 3. History of coronary artery disease, coronary artery bypass grafting/stent. 4. History of cerebrovascular accident, transient ischemic attack. 5. Gastroesophageal reflux disease. 6. Hypertension. 7. Hyperlipidemia. 8. History of myocardial infarction. 9. History of syncopal episode. 10.Chronic hypoxic respiratory failure on 2 L nasal cannula. 11.Remote history of nicotine dependence. 12.Obesity with body mass index 32.1. RECOMMENDATIONS AND DISCUSSION: This 74-year-old gentleman who presented with multiple complex medical issues, we will monitor the patient closely, continue the current medications, management and symptomatic treatment. We will initiate bronchodilator treatment as well as empiric antibiotics. Cardiology and pulmonology evaluation. Check BNP and a 2D echo with Doppler also. Prognosis extremely guarded because of multiple complex medical issues. Further recommendations to follow. MMODL / IJN: [id number] /
[2020-04-08] MEDS: IPRATROPIUM-ALBUTEROL 3 ML NEB INHALATION SCH ×2 (16:02→20:52)
--- NOTE | 2020-04-08 16:46 | XR ---
EXAMINATION TYPE: XR chest 2V DATE OF EXAM: 04/08/2020 COMPARISON: 04/07/2020 HISTORY: Weakness TECHNIQUE: 2 views. There is some linear density right upper lobe. There is general coarsening of interstitial markings. There is no heart failure. Heart size is normal. I see no definite pleural effusion. There are some e mphysematous changes right upper lobe. IMPRESSION: Pulmonary interstitial fibrotic changes. Emphysema. Right upper lobe scarring. No change compared to yesterday.
[2020-04-08 17:28] LABS: Glucose,Whole Blood 126 mg/dL (75-99)
[2020-04-08] MEDS: INSULIN ASPART (NovoLOG) 100 UNIT/ML VIAL SQ SCH ×2 (18:00→21:34)
[2020-04-08 20:27] LABS: Glucose,Whole Blood 177 mg/dL (75-99)
[2020-04-08] MEDS: MONTELUKAST 10 MG TAB PO SCH (20:38)
[2020-04-08] MEDS: PRAVASTATIN SODIUM 80 MG TAB PO SCH (20:39)
[2020-04-08] MEDS: MELATONIN 5 MG TABLET PO PRN (21:34)
[2020-04-09 06:41] LABS: Glucose,Whole Blood 150 mg/dL (75-99)
[2020-04-09] MEDS: methylPREDNISolone SOD SUCCI 125 MG/2 ML VIAL IV SCH (06:48)
[2020-04-09] MEDS: PANTOPRAZOLE 40 MG TABLET PO SCH ×2 (06:49→16:52)
[2020-04-09] MEDS: INSULIN ASPART (NovoLOG) 100 UNIT/ML VIAL SQ SCH ×4 (06:49→21:06)
[2020-04-09] MEDS: ENOXAPARIN 40 MG/0.4 ML SYRINGE SQ SCH (08:04)
[2020-04-09] MEDS: CLOPIDOGREL 75 MG TAB PO SCH (08:05)
[2020-04-09] MEDS: AZITHROMYCIN 500 MG TAB PO SCH (08:05)
[2020-04-09] MEDS: LOSARTAN 50 MG TAB PO SCH ×2 (08:05→21:07)
[2020-04-09] MEDS: hydroCHLOROthiazide 25 MG TAB PO SCH (08:05)
[2020-04-09] MEDS: ISOSORBIDE MONONITRATE ER 30 MG TAB.ER.24H PO SCH (08:05)
[2020-04-09] MEDS: ASPIRIN 81 MG PO SCH (08:05)
[2020-04-09] MEDS: UREA 20% TOPICAL SCH (08:06)
[2020-04-09] MEDS: METOPROLOL SUCCINATE (ER) 100 MG TAB.ER.24H PO SCH (08:06)
[2020-04-09] MEDS: FLUTICASONE 50MCG/SPRAY NASAL 16GM EA NOSTRIL SCH (08:17)
[2020-04-09] MEDS: PREGABALIN 100 MG CAP PO SCH ×3 (08:18→21:07)
[2020-04-09] MEDS: IPRATROPIUM-ALBUTEROL 3 ML NEB INHALATION SCH ×4 (09:01→20:39)
[2020-04-09] MEDS: SYMBICORT 160-4.5 MCG INHALER INHALATION SCH ×2 (09:01→20:39)
[2020-04-09] MEDS ORDERED: METOPROLOL SUCCINATE (ER) 25 MG TAB.ER.24H PO STA (09:33)
--- NOTE | 2020-04-09 09:42 | P.PN ---
Subjective Progress Note Date: 04/09/20 Principal diagnosis: Coronary artery disease This is a very pleasant 74-year-old gentleman was coronary artery disease and prior coronary artery bypass grafting as well as pericardial coronary artery stenting as well as hypertension and dyslipidemia presented to the emergency ro om complaining of cough and not feeling well. The patient has been experiencing a dry cough without any sputum. He stated that he did have fever at home. No chills. No symptoms of chest pain or chest discomfort or shortness of breath. When he presented to the emergency room he was experiencing palpitation. It was mentioned in the ER dictation that the patient was experiencing some PVCs. The EKG showed sinus rhythm without any significant ST or T-wave abnormalities. The chest x-ray showed some concern regarding the pneumonia. 3 sets of cardiac enzymes came in to be unremarkable. Subsequently the patient was admitted to the hospital and currently he is in process of getting treated for pneumonia. No chest pain or chest discomfort and no increasing in the shortness of breath and no feeling of heart racing or fluttering and no dizziness or lightheadedness or loss of consciousness or syncope. The patient was seen today April [id number]. He denies any symptoms of chest pain or chest discomfort and he states that the shortness of breath has improved. No dizziness or lightheadedness or heart racing or fluttering or syncope. The pressure continues to be elevated which could be related to IV steroids. I am going to increase the dose of metoprolol. Yesterday we increase d the dose of losartan. From a cardiac vascular standpoint of view, the patient possibly can be discharged home if he is stable from the pulmonary standpoint overview. Objective - Vital Signs Vital signs: Vital Signs Temp 98.1 F 04/09/20 08:00 Pulse 76 04/09/20 09:16 Resp 16 04/09/20 08:29 BP 168/86 04/09/20 08:00 Pulse Ox 90 L 04/09/20 08:00 Intake & Output 04/08/20 04/09/20 04/09/20 18:59 06:59 18:59 Intake Total 1000 200 Balance 1000 200 Intake: Oral 1000 200 Other: Voiding Method Toilet Toilet Toilet # Voids 2 2 - Constitutional General appearance: Present: no acute distress - Respiratory Respiratory: bilateral: diminished, wheezing - Cardiovascular Rhythm: regular Heart sounds: normal: S1, S2 - Labs CBC & Chem 7: 04/08/20 08:07 04/08/20 08:07 Labs: Abnormal Lab Results - Last 24 Hours (Table) 04/08/20 04/08/20 04/09/20 Range/Units 17:22 20:25 06:40 POC Glucose (mg/dL) 126 H 177 H 150 H (75-99) mg/dL Microbiology - Last 24 Hours (Table) 04/08/20 09:10 Gram Stain - Preliminary Sputum Sputum Culture - Preliminary 04/07/20 18:55 Blood Culture - Preliminary Blood No Growth after 24 hours Assessment and Plan Assessment: Assessment #1 possible pneumonia #2 coronary artery disease which seems to be stable #3 multiple comorbid conditions Plan #1 continue the current medical regimen #2 increase the dose of metoprolol #3 from the cardiac standpoint the patient can be discharged home
[2020-04-09 10:27] LABS: Basophils % (A) 0 %; Eosinophils % (A) 0 %; HCT 45.5 % (39.0-53.0); HGB 14.7 gm/dL (13.0-17.5); Lymphocytes # (A) 0.7 k/uL (1.0-4.8); Lymphocytes % (A) 6 %; MCH 30.5 pg (25.0-35.0); MCHC 32.3 g/dL (31.0-37.0); MCV 94.4 fL (80.0-100.0); Mean Platelet Volume 8.7; Monocytes # (A) 0.1 k/uL (0-1.0); Monocytes % (A) 1 %; Neutrophils # (A) 10.2 k/uL (1.3-7.7); Neutrophils % (A) 92 %; Platelet Count 185 k/uL (150-450); RBC 4.82 m/uL (4.30-5.90); RDW 13.2 % (11.5-15.5)
[2020-04-09 10:35] LABS: African American GFR (CKD) >90 (>60 ml/min/1.73 sqM); Anion Gap 8 mmol/L; Blood Urea Nitrogen 19 mg/dL (9-20); Calcium 9.6 mg/dL (8.4-10.2); Carbon Dioxide 29 mmol/L (22-30); Chloride 97 mmol/L (98-107); Glucose 219 mg/dL (74-99); Non-African American GFR(CKD) 79 (>60 ml/min/1.73 sqM); Potassium 4.6 mmol/L (3.5-5.1); Sodium 134 mmol/L (137-145)
[2020-04-09 11:35] LABS: Glucose,Whole Blood 175 mg/dL (75-99)
--- NOTE | 2020-04-09 15:34 | ECHOF ---
Referral Reason:chf MEASUREMENTS -------- HEIGHT: 182.9 cm WEIGHT: 113.4 kg BP: RVIDd: 4.1 cm (< 3.3) IVSd: 1.3 cm (0.6 - 1.1) LVIDd: 4.9 cm (3.9 - 5.3) LVPWd: 1.4 cm (0.6 - 1.1) IVSs: 1.7 cm LVIDs: 3.3 cm LVPWs: 1.7 cm LA Diam: 5.2 cm (2.7 - 3.8) LAESV Index (A-L): 33.92 ml/m Ao Diam: 3.6 cm (2.0 - 3.7) AV Cusp: 2.0 cm (1.5 - 2.6) LA Diam: 5.2 cm (2.7 - 3.8) MV EXCURSION: 17.310 mm (> 18.000) MV EF SLOPE: 81 mm/s (70 - 150) EPSS: 0.8 cm MV E Travis: 0.82 m/s MV DecT: 211 ms MV A Travis: 0.62 m/s MV E/A Ratio: 1.32 RAP: 5.00 mmHg RVSP: 45.25 mmHg FINDINGS -------- Sinus rhythm with extra systolic beats. This was a technically good study. The left ventricular size is normal. There is mild concentric left ventricular hypertrophy. Overa ll left ventricular systolic function is low-normal with, an EF between 50 - 55 %. The right ventricle is normal in size. The left atrium is mildly dilated. LA is midly dilated 29-33ml/m2. The right atrial size is normal. The aortic valve is trileaflet, and appears structurally normal. No aortic stenosis or regurgitation. Mild mitral annular calcification present. Mild mitral regurgitation is present. Mild tricuspid regurgitation present. There is mild pulmonary hypertension. There is no pulmonic regurgitation present. The aortic root size is normal. There is a small, generalized pericardial effusion present. CONCLUSIONS -------- 1. The left ventricular size is normal. 2. There is mild concentric left ventricular hypertrophy. 3. Overall left ventricular systolic function is low-normal with, an EF between 50 - 55 %. 4. The right ventricle is normal in size. 5. The left atrium is mildly dilated. 6. LA is midly dilated 29-33ml/m2. 7. The right atrial size is normal. 8. Mild mitral annular calcification present. 9. Mild mitral regurgitation is present. 10. Mild tricuspid regurgitation present. 11. There is mild pulmonary hypertension. 12. There is a small, generalized pericardial effusion present. SWITCH MAKER: Karen Schultz RDCS
[2020-04-09 16:42] LABS: Glucose,Whole Blood 136 mg/dL (75-99)
[2020-04-09] MEDS: methylPREDNISolone SOD SUCCI 40 MG/ML 1 ML VIAL IV SCH (16:52)
--- NOTE | 2020-04-09 17:23 | PN ---
PROGRESS NOTE DATE OF SERVICE: 04/09/2020 INTERVAL HISTORY: This is a 74-year-old gentleman who was admitted with weakness and dizziness and multiple symptomatology, also had COPD acute exacerbation. The possibility of bronchopneumonia is also considered. Most recent chest x-ray which was reviewed personally by me showed evidence of increased bronchovascular markings of both lower lobes. The patient's NT proBNP is not available at this time. Coronavirus is negative. PAST MEDICAL HISTORY: Reviewed. REVIEW OF SYSTEMS: CARDIOVASCULAR: No angina. RESPIRATORY: As mentioned earlier. GI: As mentioned earlier. : As mentioned earlier. NERVOUS SYSTEM: No numbness or weakness. CURRENT MEDICATIONS: Reviewed and include Tylenol p.r.n., [place] 5 mg q.6 p.r.n., DuoNeb q.i.d. and p.r.n., Xanax, Aspirin, Zithromax, Symbicort, Rocephin, Lovenox, NovoLog, Claritin, Cozaar, Solu-Medrol, Nitrostat. Other medications and doses reviewed. PHYSICAL EXAMINATION: GENERAL: Patient is alert and oriented times three. VITAL SIGNS: Pulse 72, blood pressure 160/97, orthostatic changes, respirations 18, temperature 98.1, pulse ox 92% on room air HEENT: Conjunctivae normal. Oral mucosa is moist. NECK: No jugular venous distention. No carotid bruits. No lymph node enlargement. RESPIRATORY: Breath sounds diminished at the bases. A few scattered rhonchi and crackles. HEART: S1 and S2, muffled. ABDOMEN: Soft, no tenderness. Obese. EXTREMITIES: No edema, no swelling. NERVOUS: No focal deficits. LABS: WBC 11, hemoglobin 14.7, sodium 134, potassium 4.6, glucose 175. IMAGING: Chest x-ray reviewed personally. ASSESSMENT: 1. Chronic obstructive pulmonary disease acute exacerbation with possible bilateral bronchopneumonia. 2. History of weakness and multiple premature ventricular contractions on admission. 3. History of coronary artery disease, coronary artery bypass graft and stent. 4. History of cerebrovascular accident, transient ischemic attack. 5. Gastroesophageal reflux disease. 6. Hypertension. 7. Hyperlipidemia. 8. History of myocardial infarction. 9. History of syncopal episodes. 10.History of chronic hypoxic respiratory failure on 2 L nasal cannula. 11.Remote history of nicotine dependence. 12.Obesity with body mass index of 32.1. 13.Hyponatremia. Mild. 14.Increased WBCs. RECOMMENDATIONS AND DISCUSSION: In this 74-year-old gentleman who presented with multiple complex medical issues, we will monitor the patient closely. Continue the current medications. Continue bronchodilators. Continue the antibiotics. Also recommend tapering the steroids. Increase ambulation. Continue the rest of the medications. Follow closely with Pulmonology and Cardiology. Guarded prognosis because of multiple complex medical issues. Further recommendations to follow. MMODL / IJN: [id number] /
[2020-04-09 21:07] LABS: Glucose,Whole Blood 134 mg/dL (75-99)
[2020-04-09] MEDS: MONTELUKAST 10 MG TAB PO SCH (21:07)
[2020-04-09] MEDS: PRAVASTATIN SODIUM 80 MG TAB PO SCH (21:08)
[2020-04-10] MEDS: methylPREDNISolone SOD SUCCI 40 MG/ML 1 ML VIAL IV SCH ×2 (00:34→09:26)
[2020-04-10] MEDS: MELATONIN 5 MG TABLET PO PRN (01:04)
[2020-04-10] MEDS: MENTHOL (NICE) LOZENGE MUCOUS MEM PRN ×2 (01:04→11:07)
[2020-04-10 06:38] LABS: Glucose,Whole Blood 144 mg/dL (75-99)
[2020-04-10] MEDS: INSULIN ASPART (NovoLOG) 100 UNIT/ML VIAL SQ SCH ×2 (06:41→11:47)
[2020-04-10] MEDS: PANTOPRAZOLE 40 MG TABLET PO SCH (06:41)
[2020-04-10] MEDS: IPRATROPIUM-ALBUTEROL 3 ML NEB INHALATION SCH ×2 (07:26→11:13)
[2020-04-10] MEDS: SYMBICORT 160-4.5 MCG INHALER INHALATION SCH (07:27)
[2020-04-10 08:37] LABS: Basophils % (A) 0 %; Eosinophils % (A) 0 %; HCT 45.5 % (39.0-53.0); HGB 14.4 gm/dL (13.0-17.5); Lymphocytes # (A) 0.7 k/uL (1.0-4.8); Lymphocytes % (A) 4 %; MCH 29.7 pg (25.0-35.0); MCHC 31.6 g/dL (31.0-37.0); MCV 93.9 fL (80.0-100.0); Mean Platelet Volume 8.5; Monocytes # (A) 0.6 k/uL (0-1.0); Monocytes % (A) 3 %; Neutrophils # (A) 17.2 k/uL (1.3-7.7); Neutrophils % (A) 93 %; Platelet Count 187 k/uL (150-450); RBC 4.84 m/uL (4.30-5.90); RDW 13.3 % (11.5-15.5); WBC 18.6 k/uL (3.8-10.6)
[2020-04-10 08:49] VITALS: RESP 20; TEMP 98
[2020-04-10 08:55] LABS: African American GFR (CKD) >90 (>60 ml/min/1.73 sqM); Anion Gap 9 mmol/L; Blood Urea Nitrogen 23 mg/dL (9-20); Calcium 9.7 mg/dL (8.4-10.2); Carbon Dioxide 27 mmol/L (22-30); Chloride 98 mmol/L (98-107); Glucose 129 mg/dL (74-99); Non-African American GFR(CKD) 86 (>60 ml/min/1.73 sqM); Potassium 4.3 mmol/L (3.5-5.1); Sodium 134 mmol/L (137-145)
[2020-04-10] MEDS ORDERED: METOPROLOL SUCCINATE (ER) 25 MG TAB.ER.24H PO SCH (09:00)
[2020-04-10] MEDS: ASPIRIN 81 MG PO SCH (09:26)
[2020-04-10] MEDS: AZITHROMYCIN 500 MG TAB PO SCH (09:26)
[2020-04-10] MEDS: ISOSORBIDE MONONITRATE ER 30 MG TAB.ER.24H PO SCH (09:27)
[2020-04-10] MEDS: CLOPIDOGREL 75 MG TAB PO SCH (09:27)
[2020-04-10] MEDS: FLUTICASONE 50MCG/SPRAY NASAL 16GM EA NOSTRIL SCH (09:27)
[2020-04-10] MEDS: ENOXAPARIN 40 MG/0.4 ML SYRINGE SQ SCH (09:27)
[2020-04-10] MEDS: UREA 20% TOPICAL SCH (09:28)
[2020-04-10] MEDS: hydroCHLOROthiazide 25 MG TAB PO SCH (09:32)
[2020-04-10] MEDS: PREGABALIN 100 MG CAP PO SCH ×2 (09:34→11:59)
[2020-04-10 11:01] VITALS: BP 137/57
[2020-04-10] MEDS: LOSARTAN 50 MG TAB PO SCH (11:01)
[2020-04-10 11:20] VITALS: PULSE 80
[2020-04-10 11:36] LABS: Glucose,Whole Blood 119 mg/dL (75-99)
--- NOTE | 2020-04-11 09:53 | DS ---
DISCHARGE SUMMARY DATE OF SERVICE: 04/10/2020 FINAL DIAGNOSES: 1. Chronic obstructive pulmonary disease exacerbation with possible bilateral bronchopneumonia. 2. History of weakness and multiple PVCs on admission. 3. History of CAD, CABG stent. 4. History of CVA, TIA. 5. History of gastroesophageal reflux disease. 6. Hypertension. 7. Hyperlipidemia. 8. History of myocardial infarction. 9. History of syncopal episode. 10.History of chronic hypoxic respiratory failure on 2 L nasal cannula. 11.Remote history of nicotine dependence. 12.Obesity with body mass index of 32.1. 13.Hyponatremia, mild. 14.Increased WBC. DISCHARGE DISPOSITION: The patient will be discharged in a stable condition with guarded prognosis. Total time taken is 35 minutes. HISTORY OF PRESENT ILLNESS: This is a 74-year-old gentleman with a past medical history of multiple medical problems being followed by [facility] in the outpatient setting. Admitting for COPD exacerbation as well as bronchopneumonia. The patient was treated with broad-spectrum IV antibiotics, steroids and antibiotics. Patient improved significantly. Cardiology and Pulmonary saw the patient. On exam, vitals are stable. CARDIOVASCULAR: S1, S2. ABDOMEN: Soft. RESPIRATORY: A few scattered rhonchi. DISCHARGE ADVICE: Diet is cardiac diet. Activity limited until followup. Follow up with Dr. Abdi, [facility] in 2-3 days. Follow up with Dr. Cruz and Dr. Kathleen as recommended. DISCHARGE MEDICATIONS ARE: 1. Claritin 10 mg p.o. daily. 2. Ecotrin 81 mg p.o. daily. 3. Fluticasone spray daily. 4. Hydrochlorothiazide 25 mg p.o. daily. 5. Imdur ER 30 mg p.o. daily. 6. Lyrica 200 mg p.o. b.i.d. 100 mg p.o. daily. 7. Omeprazole 40 mg b.i.d. 8. Pravachol 80 mg q.h.s. 9. Singulair 10 mg q.h.s. 10.Symbicort 160/4.5 two puffs b.i.d. 11.Ceftin 500 mg p.o. b.i.d. for 3 days. 12.Cozaar 50 mg p.o. b.i.d. 13.DuoNeb q.i.d. and p.r.n. 14.Nitrostat p.r.n. 15.Plavix 75 mg p.o. daily. 16.Prednisone taper that is 40 mg daily for 3 days, 30 for 3 days, 20 for 3 days 10 for 3 days. 17.Toprol-XL 75 mg p.o. daily. 18.Zithromax 500 mg daily for 3 days. 19.[place] 5 mg q.6 p.r.n. use sparingly. MMODL / IJN: [id number] /
--- NOTE | 2020-04-12 08:55 | CDI ---
Documentation Clarification Form Date: 04/12/20 From: Janey Barrera Phone: If you have a question about this query, please contact Guillermina Mcdowell Agricultural Economist at [phone] between 8am and 5pm. Admit Date: 04/08/20 Discharge Date:04/10/20 Patient Name: Tony Kovacs Visit Number: [id number] ATTENTION: The Clinical Documentation Specialists (CDI) and [facility] Coding Staff appreciate your assistance in clarifying documentation. Please respond to the clarification below the line at the bottom and electronically sign. The CDI & [facility] Coding staff will review the response and follow-up if needed. Please note: Queries are made part of the Legal Health Record. If you have any questions, please contact the author of this message via ITS. Dear Dr. Rivera Conflicting documentation has been found in the medical record: Documentation in the H&P states possible bilateral pneumonia with bronchopneumonia, Possible bilateral bronchopneumonia was documented in your 04/09 progress notes and discharges summary. Dr. Kathleen documented acute tracheobronchitis no evidence of pneumonia History/Risk Factors: COPD, chronic hypoxic respiratory failure, history of smoking Clinical Indicators: Cough, fatigue, low grade fever at home, shortness of breath Vital signs: T. 97.8, P. 68, R. 18, BP 177/105 WBC/Left shift: 7.6/5.7 X-ray: CXR 04/07/20 - COPD. Bibasillar infiltrates, correlate for atelectasis or pneumornia CXR 04/08/20 - Pulmonary interstitial fibrotic changes. Emphysema. Right upper lob scarring. No change compared to yesterday. Lung/Breathing Assessment: Breath sounds diminished in the bases. Scattered rhonchi and crackles Treatment: Antibiotics: IV Rocephin O2: 5 L/min per NC Breathing Tx: Duoneb In your opinion, what is the most clinically appropriate diagnosis for this patient? Bronchopneumonia Acute bronchitis Other explanation of clinical findings Unable to determine (no explanation for clinical findings) Bronchopneumonia MTDD
--- NOTE | 2020-04-12 09:08 | CDI ---
Documentation Clarification Form Date: 04/12/20 From: Janey Barrera Phone: If you have a question about this query, please contact Guillermina Mcdowell, Appellate Court Clerk at [phone] between 8am and 5pm. Admit Date: 04/09/20 Discharge Date:04/10/20 Patient Name: Tony Kovacs Visit Number: [id number] ATTENTION: The Clinical Documentation Specialists (CDI) and [facility] Coding Staff appreciate your assistance in clarifying documentation. Please respond to the clarification below the line at the bottom and electronically sign. The CDI & [facility] Coding staff will review the response and follow-up if needed. Please note: Queries are made part of the Legal Health Record. If you have any questions, please contact the author of this message via ITS. Dear Dr. Rivera History of CHF is documented in the history of present illness in the H&P and the past medical history of the ED note and both consult notes. History/Risk Factors: CAD with previous CABG, hypertension, previous NM, COPD exacerbation Clinical Indicators: Short of breath, no edema VS/Pulse OX: T. 97.8, P. 68, R. 18, BP 177/105, Pulse Ox.98% ib 5 l of O2 BNP: Not tested Echocardiogram Results: Overall left ventricular systolic function is low-normal with an EF between 50 - 55% Chest X Ray: CXR 04/07/20 - COPD. Bibasillar infiltrates, correlate for atelectasis or pneumornia CXR 04/08/20 - Pulmonary interstitial fibrotic changes. Emphysema. Right upper lob scarring. No change compared to yesterday. Treatment: Hydrochlorothiazide 25 mg daily which is a home med In your professional opinion, can you please clarify the acuity and type of CHF if known? Systolic Heart Failure: Diastolic Heart Failure: Systolic & Diastolic Heart Failure: Unable to Determine Other, please specify Diastolic Heart Failure: MTDD
== END 2020-04-10 13:51 | disposition home or self-care (01) | DRG 190 ==
LOC: EC 16:15 → 3NCARDOBS 17:46 → OBSVTOIN 04-09 09:58
PROVIDERS: ADMIT Hospitalist; ATTEND Hospitalist
DX: J44.1 Chronic obstructive pulmonary disease with (acute) exacerbation (principal); J18.0 Bronchopneumonia, unspecified organism; E87.1 Hypo-osmolality and hyponatremia; J96.11 Chronic respiratory failure with hypoxia; J84.9 Interstitial pulmonary disease, unspecified; I50.32 Chronic diastolic (congestive) heart failure; J44.0 Chronic obstructive pulmonary disease with (acute) lower respiratory infection; I11.0 Hypertensive heart disease with heart failure; I95.9 Hypotension, unspecified; E66.9 Obesity, unspecified; E78.5 Hyperlipidemia, unspecified; I25.10 Atherosclerotic heart disease of native coronary artery without angina pectoris; I25.2 Old myocardial infarction; I49.3 Ventricular premature depolarization; J20.9 Acute bronchitis, unspecified; K21.9 Gastro-esophageal reflux disease without esophagitis; Z20.828 Contact with and (suspected) exposure to other viral communicable diseases; R55 Syncope and collapse; H93.13 Tinnitus, bilateral; G62.9 Polyneuropathy, unspecified; Z68.32 Body mass index [BMI] 32.0-32.9, adult; Z79.02 Long term (current) use of antithrombotics/antiplatelets; Z79.51 Long term (current) use of inhaled steroids; Z79.82 Long term (current) use of aspirin; Z79.899 Other long term (current) drug therapy; Z86.73 Personal history of transient ischemic attack (TIA), and cerebral infarction without residual deficits; Z86.79 Personal history of other diseases of the circulatory system; Z87.891 Personal history of nicotine dependence; Z95.1 Presence of aortocoronary bypass graft; Z95.5 Presence of coronary angioplasty implant and graft; Z96.1 Presence of intraocular lens; Z98.41 Cataract extraction status, right eye; Z98.42 Cataract extraction status, left eye; Z87.01 Personal history of pneumonia (recurrent); Z99.81 Dependence on supplemental oxygen; Z87.81 Personal history of (healed) traumatic fracture; Z98.890 Other specified postprocedural states; Z82.49 Family history of ischemic heart disease and other diseases of the circulatory system; Z80.9 Family history of malignant neoplasm, unspecified
CPT/HCPCS: 36415; 71046; 80048; 80053; 80061; 81003; 82550; 83735; 84100; 84145; 84484; 85025; 85027; 85610; 85730; 87040; 87070; 87205; 93005; 93306; 94640; 96361; 96365; 99291

== ENCOUNTER 2020-07-16 13:51 | Emergency (ER) | payer OTHER, MEDICARE ==
[2020-07-16 14:08] VITALS: RESP 18; TEMP 97.9
[2020-07-16] MEDS ORDERED: SODIUM CHLORIDE 0.9% 500 ML 500 ML IV STA (14:40)
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
[2020-07-16 15:25] LABS: Basophils # (A) 0.1 k/uL (0-0.2); Basophils % (A) 1 %; Eosinophils # (A) 0.2 k/uL (0-0.7); Eosinophils % (A) 2 %; HCT 41.4 % (39.0-53.0); HGB 14.4 gm/dL (13.0-17.5); Lymphocytes # (A) 1.2 k/uL (1.0-4.8); Lymphocytes % (A) 14 %; MCH 32.5 pg (25.0-35.0); MCHC 34.9 g/dL (31.0-37.0); MCV 93.2 fL (80.0-100.0); Mean Platelet Volume 8.3; Monocytes # (A) 0.5 k/uL (0-1.0); Monocytes % (A) 6 %; Neutrophils # (A) 6.6 k/uL (1.3-7.7); Neutrophils % (A) 76 %; Platelet Count 150 k/uL (150-450); RBC 4.45 m/uL (4.30-5.90); RDW 13.1 % (11.5-15.5); WBC 8.6 k/uL (3.8-10.6)
[2020-07-16 15:41] LABS: Partial Thromboplastin Time 24.2 sec (22.0-30.0); Prothrombin Time 10.4 sec (9.0-12.0)
[2020-07-16 15:41] LABS: Appearance,Urine Clear (Clear); Bilirubin,Urine Negative (Negative); Blood,Urine Negative (Negative); Color,Urine Yellow; Glucose,Urine (UA) Negative (Negative); Ketones,Urine Trace (Negative); Leukocyte Esterase,Urine Negative (Negative); Nitrite,Urine Negative (Negative); Protein,Urine Negative (Negative); Specific Gravity,Urine 1.016 (1.001-1.035); Urobilinogen,Urine <2.0 mg/dL (<2.0)
[2020-07-16 15:43] LABS: ALT 17 U/L (4-49); AST 29 U/L (17-59); African American GFR (CKD) >90 (>60 ml/min/1.73 sqM); Albumin 4.4 g/dL (3.5-5.0); Alkaline Phosphatase 63 U/L (38-126); Anion Gap 7 mmol/L; Blood Urea Nitrogen 15 mg/dL (9-20); Calcium 9.5 mg/dL (8.4-10.2); Carbon Dioxide 30 mmol/L (22-30); Chloride 94 mmol/L (98-107); Glucose 111 mg/dL (74-99); Magnesium 1.6 mg/dL (1.6-2.3); Non-African American GFR(CKD) 87 (>60 ml/min/1.73 sqM); Potassium 3.6 mmol/L (3.5-5.1); Sodium 131 mmol/L (137-145); Total Bilirubin 1.1 mg/dL (0.2-1.3)
--- NOTE | 2020-07-16 15:46 | XR ---
EXAMINATION TYPE: XR chest 1V portable DATE OF EXAM: 07/16/2020 COMPARISON: 04/08/2020 HISTORY: Short of breath There is some patchy interstitial density in both lungs. There is linear density right upper lobe. Th ere is no heart failure. Thoracic aorta is atheromatous. There are sternal wires. IMPRESSION: Pulmonary fibrosis. No change compared to old exam. No acute lung disease.
[2020-07-16 16:18] VITALS: BP 182/96; PULSE 80
[2020-07-16] MEDS ORDERED: FUROSEMIDE 10 MG/ML 4 ML VIAL IV STA (16:28)
== END 2020-07-16 16:55 | disposition home or self-care (01) ==
LOC: EC 13:51
DX: Z76.0 Encounter for issue of repeat prescription (principal); R79.89 Other specified abnormal findings of blood chemistry; R53.1 Weakness; R60.0 Localized edema; I11.0 Hypertensive heart disease with heart failure; I50.9 Heart failure, unspecified; J44.9 Chronic obstructive pulmonary disease, unspecified; E78.5 Hyperlipidemia, unspecified; K21.9 Gastro-esophageal reflux disease without esophagitis; I25.119 Atherosclerotic heart disease of native coronary artery with unspecified angina pectoris; I25.2 Old myocardial infarction; Z20.828 Contact with and (suspected) exposure to other viral communicable diseases; Z79.51 Long term (current) use of inhaled steroids; Z79.899 Other long term (current) drug therapy; Z79.82 Long term (current) use of aspirin; Z86.73 Personal history of transient ischemic attack (TIA), and cerebral infarction without residual deficits; Z87.891 Personal history of nicotine dependence
CPT/HCPCS: 36415; 93005; 83880; 80053; 83735; 84484; 85025; 85610; 85730; 81003; 87635; 71045; 99284; 96374; J1940

== ENCOUNTER 2020-08-25 07:49 | Inpatient (IN) | payer MEDICARE, OTHER ==
[2020-08-25] MEDS ORDERED: FUROSEMIDE 10 MG/ML 4 ML VIAL IV STA (08:00)
[2020-08-25] MEDS ORDERED: methylPREDNISolone SOD SUCCI 125 MG/2 ML VIAL IV STA (08:00)
[2020-08-25] MEDS ORDERED: IPRATROPIUM-ALBUTEROL 3 ML NEB INHALATION STA (08:00)
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
[2020-08-25 08:20] LABS: Basophils # (A) 0.1 k/uL (0-0.2); Basophils % (A) 0 %; Eosinophils # (A) 0.3 k/uL (0-0.7); Eosinophils % (A) 2 %; HCT 46.7 % (39.0-53.0); HGB 16.2 gm/dL (13.0-17.5); Lymphocytes # (A) 0.9 k/uL (1.0-4.8); Lymphocytes % (A) 7 %; MCH 32.8 pg (25.0-35.0); MCHC 34.7 g/dL (31.0-37.0); MCV 94.7 fL (80.0-100.0); Mean Platelet Volume 8.2; Monocytes # (A) 0.3 k/uL (0-1.0); Monocytes % (A) 2 %; Neutrophils % (A) 88 %; Platelet Count 156 k/uL (150-450); RBC 4.93 m/uL (4.30-5.90); RDW 13.1 % (11.5-15.5); WBC 13.6 k/uL (3.8-10.6)
[2020-08-25 08:27] LABS: Potassium 3.9 mmol/L (3.5-5.1)
[2020-08-25 08:28] LABS: Albumin 4.9 g/dL (3.5-5.0); Calcium 9.8 mg/dL (8.4-10.2); Magnesium 1.5 mg/dL (1.6-2.3); Total Bilirubin 0.8 mg/dL (0.2-1.3); Total Protein 7.9 g/dL (6.3-8.2)
[2020-08-25 08:35] LABS: INR 0.9 (<1.2); Prothrombin Time 9.9 sec (9.0-12.0)
[2020-08-25] MEDS ORDERED: cefTRIAXone IN SWFI 1,000 MG/10 ML SYRINGE IVP STA (08:53)
--- NOTE | 2020-08-25 09:18 | XR ---
EXAMINATION TYPE: XR chest 2V DATE OF EXAM: 08/25/2020 COMPARISON: 07/16/2020 TECHNIQUE: PA and lateral views submitted. HISTORY: Shortness of breath FINDINGS: Hyperinflation compatible COPD. Bilateral patchy infiltrates with linear changes in the right upper l obe. Biapical pleural thickening. Postoperative change. Atherosclerotic change aorta. Heart size is a t the upper limits of normal. IMPRESSION: 1. COPD with patchy areas of bilateral infiltrate correlate for pneumonia.
[2020-08-25] MEDS ORDERED: SODIUM CHLORIDE 0.9% 1,000 ML IV STA ×2 (09:37)
[2020-08-25] MEDS ORDERED: PNEUMONIA PROTOCOL UTILIZED 1 EACH MISC PO PRN (10:16)
[2020-08-25] MEDS ORDERED: AZITHROMYCIN 500 MG in SODIUM CHLORIDE 0.9% 250 ML IVPB STA (10:16)
[2020-08-25] MEDS ORDERED: LORATADINE 10 MG TAB PO PRN (10:19)
[2020-08-25] MEDS ORDERED: Urea 20% Cream TOPICAL PRN (10:19)
[2020-08-25] MEDS ORDERED: NITROGLYCERIN SL TABS 0.4 MG TAB SUBLINGUAL PRN (10:19)
[2020-08-25] MEDS: MAGNESIUM SULFATE-D5W PMX 1 GM in DEXTROSE/WATER 1 100ML.BAG IVPB SCH ×2 (10:42→13:19)
[2020-08-25] MEDS: IPRATROPIUM-ALBUTEROL 3 ML NEB INHALATION SCH ×3 (12:25→19:16)
[2020-08-25] MEDS: PREGABALIN 100 MG CAP PO SCH ×2 (13:19→20:57)
[2020-08-25] MEDS: methylPREDNISolone SOD SUCCI 125 MG/2 ML VIAL IV SCH ×3 (13:19→23:35)
[2020-08-25] MEDS ORDERED: METOPROLOL TARTRATE 25 MG TAB PO STA (14:29)
[2020-08-25] MEDS ORDERED: MAGNESIUM SULFATE-D5W PMX 1 GM in DEXTROSE/WATER 1 100ML.BAG IVPB SCH (14:30)
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
--- NOTE | 2020-08-25 16:41 | ECHOF ---
Referral Reason:LV function MEASUREMENTS -------- HEIGHT: 182.9 cm WEIGHT: 113.4 kg BP: IVSd: 1.6 cm (0.6 - 1.1) LVIDd: 3.5 cm (3.9 - 5.3) LVPWd: 1.5 cm (0.6 - 1.1) IVSs: 2.2 cm LVIDs: 2.6 cm LVPWs: 1.5 cm Ao Diam: 3.7 cm (2.0 - 3.7) AV Cusp: 2.0 cm (1.5 - 2.6) LA Diam: 3.9 cm (2.7 - 3.8) MV EXCURSION: 16.898 mm (> 18.000) MV EF SLOPE: 52 mm/s (70 - 150) EPSS: 0.9 cm MV E Travis: 0.65 m/s MV DecT: 128 ms MV A Travis: 0.94 m/s MV E/A Ratio: 0.70 RAP: 5.00 mmHg RVSP: 32.75 mmHg FINDINGS -------- This was a technically difficult study with suboptimal views. The left ventricular size is normal. There is moderate concentric left ventricular hypertrophy. O verall left ventricular systolic function is normal with, an EF between 55 - 60 %. The RV was not well visualized. The left atrial size is normal. The right atrial size is normal. Lumason used The aortic valve is trileaflet and appears structurally normal. The mitral valve is normal. Mild mitral regurgitation is present. The tricuspid valve appears structurally normal. Trace tricuspid regurgitation present. Right des tricular systolic pressure is normal at < 35 mmHg. The pulmonic valve was not well visualized. The aortic root size is normal. IVC Not well visulized. There is no pericardial effusion. CONCLUSIONS -------- 1. The left ventricular size is normal. 2. There is moderate concentric left ventricular hypertrophy. 3. Overall left ventricular systolic function is normal with, an EF between 55 - 60 %. 4. Mild mitral regurgitation is present. 5. Trace tricuspid regurgitation present. 6. There is no pericardial effusion. PUBLIC RELATIONS SPECIALIST: Lexus Woods [facility]
[2020-08-25] MEDS ORDERED: HEPARIN SODIUM,PORCINE 5,000 UNIT/ML 1 ML VIAL IV PRN (18:38)
[2020-08-25] MEDS ORDERED: HEPARIN SODIUM,PORCINE 5,000 UNIT/ML 1 ML VIAL IV ONE (18:38)
[2020-08-25] MEDS ORDERED: HEPARIN SOD,PORK IN 0.45% NACL 25,000 UNIT in 0.45% NACL 1 250ML.BAG IV SCH (18:45)
[2020-08-25] MEDS: HYDROcodone/APAP 5-325MG 1 EACH TAB PO PRN (20:56)
[2020-08-25] MEDS: MONTELUKAST 10 MG TAB PO SCH (20:57)
[2020-08-25] MEDS ORDERED: PRAVASTATIN SODIUM 80 MG TAB PO SCH (21:00)
[2020-08-26] MEDS: IPRATROPIUM-ALBUTEROL 3 ML NEB INHALATION SCH ×6 (00:02→20:29)
[2020-08-26 06:13] LABS: Glucose,Whole Blood 157 mg/dL (75-99)
[2020-08-26] MEDS: PANTOPRAZOLE 40 MG TABLET PO SCH (06:43)
[2020-08-26] MEDS: methylPREDNISolone SOD SUCCI 125 MG/2 ML VIAL IV SCH ×4 (06:43→23:07)
[2020-08-26 07:30] LABS: Basophils % (A) 0 %; Eosinophils % (A) 0 %; HCT 43.8 % (39.0-53.0); HGB 14.6 gm/dL (13.0-17.5); Lymphocytes # (A) 0.6 k/uL (1.0-4.8); Lymphocytes % (A) 4 %; MCH 31.7 pg (25.0-35.0); MCHC 33.3 g/dL (31.0-37.0); MCV 95.3 fL (80.0-100.0); Mean Platelet Volume 8.4; Monocytes # (A) 0.3 k/uL (0-1.0); Monocytes % (A) 2 %; Neutrophils # (A) 15.4 k/uL (1.3-7.7); Neutrophils % (A) 94 %; Platelet Count 160 k/uL (150-450); RDW 13.1 % (11.5-15.5); WBC 16.4 k/uL (3.8-10.6)
[2020-08-26 08:14] LABS: African American GFR (CKD) >90 (>60 ml/min/1.73 sqM); Anion Gap 12 mmol/L; Blood Urea Nitrogen 21 mg/dL (9-20); Calcium 9.2 mg/dL (8.4-10.2); Carbon Dioxide 29 mmol/L (22-30); Chloride 96 mmol/L (98-107); Glucose 166 mg/dL (74-99); Non-African American GFR(CKD) 90 (>60 ml/min/1.73 sqM); Potassium 3.7 mmol/L (3.5-5.1); Sodium 137 mmol/L (137-145)
--- NOTE | 2020-08-26 08:23 | XR ---
EXAMINATION TYPE: XR chest 2V DATE OF EXAM: 08/26/2020 COMPARISON: 08/25/2020 HISTORY: 75-year-old male pneumonia TECHNIQUE: PA and lateral views FINDINGS: Median sternotomy wires are present. Heart upper limits of normal in size. There is cardiac arch calc ifications. Rounded retrocardiac lucency may reflect underlying hiatal hernia. Hyperinflation. Inters titial opacities. Patchy mid and lower lung opacities, left greater than right persist without signif icant change. No sizable effusion. Stable band of atelectasis or scar at the right upper lobe. IMPRESSION: 1. COPD with continued interstitial opacities and patchy bibasilar infiltrates, left greater than rig ht without significant change. 2. Retrocardiac lucency may reflect underlying hiatal hernia.
[2020-08-26 08:35] LABS: Magnesium 2.2 mg/dL (1.6-2.3)
[2020-08-26] MEDS ORDERED: hydroCHLOROthiazide 25 MG TAB PO SCH (09:00)
[2020-08-26] MEDS ORDERED: SODIUM CHLORIDE 0.9% 1,000 ML in EMPTY BAG 1 BAG IV ONE (09:34)
[2020-08-26] MEDS ORDERED: ASPIRIN 325 MG TAB PO STA (09:34)
[2020-08-26] MEDS ORDERED: ALPRAZolam 0.25 MG TAB PO PRN (09:34)
[2020-08-26] MEDS ORDERED: ATORVASTATIN 80 MG TAB PO STA (09:34)
[2020-08-26] MEDS ORDERED: NITROGLYCERIN SL TABS 0.4 MG TAB SUBLINGUAL PRN ×2 (09:34→12:12)
[2020-08-26] MEDS ORDERED: ALPRAZolam 0.5 MG TAB PO PRN (09:34)
[2020-08-26] MEDS: LOSARTAN 50 MG TAB PO SCH (09:45)
[2020-08-26] MEDS: METOPROLOL SUCCINATE (ER) 50 MG TAB.ER.24H PO SCH (09:46)
[2020-08-26] MEDS: HYDROcodone/APAP 5-325MG 1 EACH TAB PO PRN ×2 (09:46→23:06)
[2020-08-26] MEDS: CLOPIDOGREL 75 MG TAB PO SCH (09:46)
[2020-08-26] MEDS: ISOSORBIDE MONONITRATE ER 30 MG TAB.ER.24H PO SCH (09:46)
[2020-08-26] MEDS: AZITHROMYCIN 500 MG TAB PO SCH (09:46)
[2020-08-26] MEDS: PREGABALIN 100 MG CAP PO SCH ×3 (09:46→20:37)
[2020-08-26] MEDS: ASPIRIN 81 MG PO SCH (09:47)
[2020-08-26] MEDS ORDERED: HEPARIN SODIUM 1,000 UN/ML (10ML VL) IV ONE ×3 (10:18→11:35)
[2020-08-26] MEDS ORDERED: IV FLUID CONTINUATION 1,000 ML IV ONE (10:30)
[2020-08-26] MEDS ORDERED: VERAPAMIL 2.5 MG/ML 2 ML AMP ONE (10:40)
[2020-08-26] MEDS ORDERED: LIDOCAINE 1% INJ 10MG/ML (20 ML MDV) ONE (10:40)
[2020-08-26] MEDS ORDERED: fentaNYL (PF) 50 MCG/ML 2 ML AMP ONE (10:41)
[2020-08-26] MEDS ORDERED: MIDAZOLAM 2 MG/2 ML VIAL IV ONE (10:54)
[2020-08-26] MEDS ORDERED: LIDOCAINE 1% INJ 10MG/ML (20 ML MDV) SQ ONE (10:54)
[2020-08-26] MEDS ORDERED: fentaNYL (PF) 50 MCG/ML 2 ML AMP IV ONE (10:55)
[2020-08-26] MEDS ORDERED: HEPARIN SODIUM 1,000 UN/ML (10ML VL) ONE ×2 (11:17→11:34)
[2020-08-26] MEDS ORDERED: IOPAMIDOL-370 125ML BTL INJ ONE (11:30)
[2020-08-26] MEDS ORDERED: IOPAMIDOL-370 100ML BTL INJ ONE (12:03)
[2020-08-26] MEDS ORDERED: MAG HYDROX/AL HYDROX/SIMETH 30 ML CUP PO PRN (12:12)
[2020-08-26] MEDS ORDERED: ATROPINE SULFATE 0.1 MG/ML 10ML SYRINGE IV PRN (12:12)
[2020-08-26] MEDS ORDERED: ZOLPIDEM 5 MG TAB PO PRN (12:12)
[2020-08-26] MEDS ORDERED: RX INFO: IV CONTRAST WAS GIVEN 1 EACH MISC MISCELLANE PRN (12:12)
[2020-08-26] MEDS ORDERED: SODIUM CHLORIDE 0.9% 1,000 ML IV SCH (12:15)
--- NOTE | 2020-08-26 12:44 | P.PN ---
Subjective Progress Note Date: 08/26/20 75-year-old male patient with known history of COPD and addition to history of coronary artery disease, previous bypass surgery, previous coronary stenting, coming in for worsening shortness of breath typical of an underlying COPD exacerbation. His last admission for septic exacerbation was back in 03/15. At that time the patient was treated without any major complication and he was discharged home. He is coming in for worsening shortness of breath. He woke up with increased dyspnea and he also had increased bronchospasm wheezing. He apparently also experienced some nonradiating chest pain which ultimately recovered. His covid 90 testing came back negative. Since his arrival to the hospital, the patient has undergone further investigation including a chest x- ray that showed COPD and there are some limited bibasilar pulmonary infiltrates,, a white cell count that showed 13.7 and a hemoglobin of 16.2, and normal kidney function with a creatinine of 1.04, lactic acid level of 3 and a troponin of 0.0 47. His EKG showed sinus tachycardia which is improved by now. ST segment changes and the patient was seen over the anterior lead. Note that his subsequent troponin came back at 2.95 and the presentation is consistent with an acute non-STEMI. The patient's latest cardiac catheterization was done in May 2019 and he had severe triple vessel coronary artery disease in [place] tion to a patent MILES to diagonal, patent SVG to OM, successful stenting of the distal an ostial RCA. The patient was also found to have a 70% lesion in the proximal LAD. His correlation profile is within normal limits. His cardiac rhythm is sinus. He is on a combination of Rocephin and Zithromax in addition to IV Solu Medrol 60 mg every 6 hours. On 08/26/2020, the patient is doing well. He just arrived from the catheter. As mentioned earlier, the patient sustained a non-STEMI and the patient was taken for a cardiac catheterization and he underwent stenting to the RCA. This was successful and is currently back to his room. He is hemodynamically stable laying down flat. His COPD is still being treated with a combination of bronchodilators and steroids and antibiotics. He does have some lower lobe pneumonia in addition. History of any chest pain for now. No other significant events otherwise. No cardiac arrhythmias have been noted. Family is at the bedside and I also had a discussion with his . No nausea. No vomiting. No abdominal pain. No chest pain. His shortness of breath is also improving. Objective - Vital Signs Vital signs: Vital Signs Temp 97.6 F 08/26/20 09:07 Pulse 88 08/26/20 12:25 Resp 16 08/26/20 12:25 BP 135/81 08/26/20 12:25 Pulse Ox 96 08/26/20 12:25 Intake & Output 08/25/20 08/26/20 08/26/20 18:59 06:59 18:59 Intake Total 240 70.014 353.881 Output Total 300 Balance -60 70.014 353.881 Weight 113.4 kg 113.6 kg Intake: IV 250 Intake, IV Titration 70.014 103.881 Amount Heparin Sod,Pork in 0.45% 70.014 103.881 NaCl 25,000 unit In 0.45 % NaCl 1 250ml.bag @ 8.82 UNITS/KG/HR 10.002 mls/ hr IV .Q24H [facility] Rx#: [id number] Oral 240 Output: Urine 300 Other: # Voids 1 - Exam Gen. appearance, comfortable, not in acute respiratory distress at this point in time any declined having any chest pain. Head exam was generally normal. There was no scleral icterus or corneal arcus. Mucous membranes were moist. Neck was supple and without jugular venous distension, thyromegaly, or carotid bruits. Carotids were easily palpable bilaterally. There was no adenopathy. lung sounds are diminished and the patient is prolongation of expiration phase of breathing and scattered expiratory wheezes throughout the lung [place] bilaterally heart sounds are regular, there is a sternal wound over the anterior chest a gavino. No significant murmurs appreciated. Abdominal exam revealed normal bowel sounds. The abdomen was soft, non-tender, and without masses, organomegaly, or appreciable enlargement of the abdominal aorta. Examination of the extremities revealed easily palpable radial, femoral and pedal pulses. There was no cyanosis, clubbing or edema. Examination of the skin revealed no evidence of significant rashes, suspicious appearing nevi or other concerning lesions. Neurologically, the patient is awake and alert and the patient does not have any focal neurological deficit. Cranial nerves are essentially intact. - Labs CBC & Chem 7: 08/26/20 06:54 08/26/20 06:54 Labs: Abnormal Lab Results - Last 24 Hours (Table) 08/25/20 08/25/20 08/26/20 Range/Units 14:56 16:55 00:40 WBC (3.8-10.6) k/uL Neutrophils # (1.3-7.7) k/uL Lymphocytes # (1.0-4.8) k/uL APTT 34.9 H (22.0-30.0) sec Chloride (98-107) mmol/L BUN (9-20) mg/dL Glucose (74-99) mg/dL POC Glucose (mg/dL) (75-99) mg/dL Troponin I 2.950 H* 3.260 H* (0.000-0.034) ng/mL 08/26/20 08/26/20 08/26/20 Range/Units 06:11 06:54 06:54 WBC 16.4 H (3.8-10.6) k/uL Neutrophils # 15.4 H (1.3-7.7) k/uL Lymphocytes # 0.6 L (1.0-4.8) k/uL APTT (22.0-30.0) sec Chloride 96 L (98-107) mmol/L BUN 21 H (9-20) mg/dL Glucose 166 H (74-99) mg/dL POC Glucose (mg/dL) 157 H (75-99) mg/dL Troponin I (0.000-0.034) ng/mL 08/26/20 Range/Units 06:54 WBC (3.8-10.6) k/uL Neutrophils # (1.3-7.7) k/uL Lymphocytes # (1.0-4.8) k/uL APTT 51.7 H (22.0-30.0) sec Chloride (98-107) mmol/L BUN (9-20) mg/dL Glucose (74-99) mg/dL POC Glucose (mg/dL) (75-99) mg/dL Troponin I (0.000-0.034) ng/mL Microbiology - Last 24 Hours (Table) 08/25/20 08:12 Blood Culture - Preliminary Blood No Growth after 24 hours 08/25/20 19:20 Gram Stain - Preliminary Sputum Sputum Culture - Preliminary Assessment and Plan Plan: 1 acute COPD exacerbation with a possibility of lower lobe pneumonia bilaterally. 2 acute non-STEMI, currently free of any chest pain, post cardiac catheterization stenting of the RCA 3 shortness of breath secondary to above 4 chronic hypoxic respiratory failure admitted on oxygen at home at 2 L 5 coronary artery disease with previous bypass surgery and previous history of cardiac catheterization and stenting and please refer to the most recent catheterization from 2019, and the patient has a persistent lesion in his LAD based on that cardiac catheterization which could be the culprit for his acute non-STEMI 6 history of abdominal aortic aneurysm, post repair 7 hypertension 8 hyperlipidemia 9 mild lactic acidosis 10 previous history of TIA Plan Continue Rocephin and Zithromax Continue IV Solu Medrol Continue DuoNeb nebulized treatments around the clock Covid 19 testing is negative Cardiology to follow-up post cardiac catheterization and stenting Continue aspirin and Plavix Continue metoprolol Start tapering steroids as of tomorrow We'll continue to follow
[2020-08-26] MEDS: INSULIN ASPART (NovoLOG) 100 UNIT/ML VIAL SQ SCH ×3 (12:50→20:37)
[2020-08-26 12:51] LABS: Glucose,Whole Blood 132 mg/dL (75-99)
--- NOTE | 2020-08-26 13:44 | CC ---
CARDIAC CATHETERIZATION REPORT INDICATION: Acute non ST-segment elevation NC. PROCEDURE NOTE: After obtaining informed consent, left heart catheterization, coronary angiogram and selective injection of the bypass grafts was performed via the right femoral artery using standard Jaya catheters. The patient tolerated the procedure well without any obvious immediate complications. The patient had tortuous aorta and we had to use a Glidewire to traverse the abdominal aorta area and used a long exchange length wire to exchange catheters in the ascending aorta. The patient has known coronary artery disease with prior bypass with MILES to LAD and venous graft to OM and underwent angioplasty with stent placement of [place] right coronary artery and LAD in May of last year. The patient tolerated the procedure well without any obvious immediate complications. He received moderate conscious sedation. Total sedation time was 22 minutes. FINDINGS: HEMODYNAMICS: Left ventricular end-diastolic pressure is 14 mm. There is no significant gradient across the aortic valve. LEFT VENTRICULOGRAM: Left ventriculogram was not performed. ANGIOGRAPHIC DATA: LEFT MAIN CORONARY ARTERY: Left main coronary artery appears calcified and shows 40% ostial left main stenosis. Divides into left anterior descending coronary artery and circumflex coronary artery. LAD gives off a diagonal branch that appears occluded proximally. The LAD was stented in the midportion and the stent appears patent. There is mild to moderate diffuse involving the distal LAD. CIRCUMFLEX CORONARY ARTERY shows a moderate area of stenosis. There is some competitive flow noted within the OM branch. RIGHT CORONARY ARTERY: Right coronary artery is a large dominant vessel. There is a 95% stenosis in the proximal right coronary artery that was previously stented. There is in-stent restenoses noted. SELECTIVE INJECTION OF THE BYPASS GRAFT: The MILES to the diagonal branch appears patent. Proximal and distal anastomotic sites are free of significant disease. Venous graft to the OM branch appears patent and and both the bypass grafts remained unchanged compared to the previous catheterization in May. CONCLUSIONS: 1. [place] 3 vessel coronary artery disease with patent MILES to the diagonal branch and venous graft to the OM. 2. Patent stent within the LAD. 3. 95% focal stenosis in the proximal right coronary artery. This is an in-stent restenoses. PLAN: Patient will undergo angioplasty of the proximal right coronary artery. MMODL / IJN: [id number] /
--- NOTE | 2020-08-26 13:44 | PTCA ---
PERCUTANEOUSTRANS CORORONARY ANGIOGRAPHY Mr. Kovacs is a 75-year-old male with known history of coronary artery disease, status post coronary artery bypass grafting, history of percutaneous revascularization to the ostium of the right coronary artery, distal right coronary artery and left anterior descending artery done in the past who presented with symptoms of chest discomfort and mild troponin elevation. He underwent cardiac catheterization by Dr. Cruz and was found to have ostial RCA restenoses. In view of that, recommendation made regarding angioplasty and stenting. The procedures, risks, and complication were discussed with the patient who is in full understanding and agreement. PROCEDURE DETAILS: A 6-[place] FR4 guiding catheter was introduced into the system. After cannulating the right coronary ostium, a 0.014 balanced medium weight J-wire was advanced across the lesion and positioned distally. Then a 2.5 x 12 mm NC Trek balloon was advanced and one inflation at 16 atmospheres was done. Following that, the balloon was removed and a 4.0 x 12 mm Xience Kati stent was deployed and was dilated at 20 atmospheres. Following that, the balloon was withdrawn back proximally and one inflation was done at 16 atmospheres. Following that, the balloon was removed and an intravascular ultrasound [place] eye volcano. Catheter was introduced and images were obtained. After measuring the lumen of the vessel, the intravascular ultrasound catheter was removed and a 5.0 x 12 mm NC Emerge balloon was advanced and 2 inflations at a maximum of 18 atmospheres was done. After the last inflation, after appropriate wait, the balloon and the guidewire were withdrawn back in the guiding catheter. Images were obtained, repeated. Those images reveal stable successful stenting. At that point, the guiding catheter, the balloon and the guidewire were removed. The sheath was sutured in place. The patient was returned to his room in stable condition. Of note, [place] [id number] units of intravenous heparin. His ACT was followed. He was continued on clopidogrel. He had chest discomfort and EKG changes that resolved at the end of the procedure. RESULTS: Successful stenting of the ostium of the right coronary artery with reduction of stenosis from 99% to 0%. RECOMMENDATIONS: Patient will be continued on aspirin, Plavix and statin. The importance of dual antiplatelet treatment were discussed with the patient and his family and they are in full understanding and agreement. Duration of sedation is 40 minutes. MMODL / IJN: [id number] /
[2020-08-26 14:39] VITALS: BMI 32.1
[2020-08-26 16:38] LABS: Glucose,Whole Blood 168 mg/dL (75-99)
[2020-08-26 20:31] LABS: Glucose,Whole Blood 137 mg/dL (75-99)
[2020-08-26] MEDS: MONTELUKAST 10 MG TAB PO SCH (20:37)
[2020-08-27] MEDS: IPRATROPIUM-ALBUTEROL 3 ML NEB INHALATION SCH ×6 (01:32→20:25)
[2020-08-27] MEDS: HYDROcodone/APAP 5-325MG 1 EACH TAB PO PRN ×3 (05:04→23:10)
[2020-08-27 06:17] LABS: Glucose,Whole Blood 138 mg/dL (75-99)
[2020-08-27] MEDS: PANTOPRAZOLE 40 MG TABLET PO SCH (06:46)
[2020-08-27] MEDS: methylPREDNISolone SOD SUCCI 125 MG/2 ML VIAL IV SCH ×4 (06:46→23:11)
[2020-08-27] MEDS: INSULIN ASPART (NovoLOG) 100 UNIT/ML VIAL SQ SCH ×4 (06:47→21:03)
[2020-08-27] MEDS ORDERED: HEPARIN SODIUM,PORCINE 10,000 UNIT in SODIUM CHLORIDE 0.9% 1,000 ML IRRIGATION PRN (07:00)
[2020-08-27] MEDS ORDERED: HEPARIN SODIUM,PORCINE 2,500 UNIT in SODIUM CHLORIDE 0.9% 250 ML IRRIGATION PRN (07:00)
[2020-08-27] MEDS: PREGABALIN 100 MG CAP PO SCH ×3 (08:00→21:03)
[2020-08-27] MEDS: ISOSORBIDE MONONITRATE ER 30 MG TAB.ER.24H PO SCH (08:01)
[2020-08-27] MEDS: AZITHROMYCIN 500 MG TAB PO SCH (08:01)
[2020-08-27] MEDS: METOPROLOL SUCCINATE (ER) 50 MG TAB.ER.24H PO SCH (08:01)
[2020-08-27] MEDS: ATORVASTATIN 80 MG TAB PO SCH (08:01)
[2020-08-27] MEDS: ASPIRIN 81 MG PO SCH (08:01)
[2020-08-27] MEDS: CLOPIDOGREL 75 MG TAB PO SCH (08:01)
[2020-08-27] MEDS: LOSARTAN 50 MG TAB PO SCH (08:01)
[2020-08-27 08:32] LABS: African American GFR (CKD) >90 (>60 ml/min/1.73 sqM); Anion Gap 9 mmol/L; Blood Urea Nitrogen 28 mg/dL (9-20); Calcium 9.1 mg/dL (8.4-10.2); Carbon Dioxide 31 mmol/L (22-30); Chloride 99 mmol/L (98-107); Glucose 140 mg/dL (74-99); Non-African American GFR(CKD) 83 (>60 ml/min/1.73 sqM); Potassium 3.9 mmol/L (3.5-5.1); Sodium 139 mmol/L (137-145)
[2020-08-27 09:31] LABS: Basophils % (A) 0 %; Eosinophils % (A) 0 %; HCT 42.7 % (39.0-53.0); HGB 13.9 gm/dL (13.0-17.5); Lymphocytes # (A) 0.6 k/uL (1.0-4.8); Lymphocytes % (A) 4 %; MCH 31.5 pg (25.0-35.0); MCHC 32.6 g/dL (31.0-37.0); MCV 96.5 fL (80.0-100.0); Mean Platelet Volume 9.9; Monocytes # (A) 0.5 k/uL (0-1.0); Monocytes % (A) 3 %; Neutrophils # (A) 15.4 k/uL (1.3-7.7); Neutrophils % (A) 93 %; Platelet Count 185 k/uL (150-450); RBC 4.43 m/uL (4.30-5.90); RDW 13.7 % (11.5-15.5); WBC 16.5 k/uL (3.8-10.6)
[2020-08-27 11:37] LABS: Glucose,Whole Blood 148 mg/dL (75-99)
--- NOTE | 2020-08-27 11:58 | P.PN ---
Subjective Progress Note Date: 08/27/20 75-year-old male patient with known history of COPD and addition to history of coronary artery disease, previous bypass surgery, previous coronary stenting, coming in for worsening shortness of breath typical of an underlying COPD exacerbation. His last admission for septic exacerbation was back in 04/09. At that time the patient was treated without any major complication and he was discharged home. He is coming in for worsening shortness of breath. He woke up with increased dyspnea and he also had increased bronchospasm wheezing. He apparently also experienced some nonradiating chest pain which ultimately recovered. His covid 90 testing came back negative. Since his arrival to the hospital, the patient has undergone further investigation including a chest x- ray that showed COPD and there are some limited bibasilar pulmonary infiltrates,, a white cell count that showed 13.7 and a hemoglobin of 16.2, and normal kidney function with a creatinine of 1.04, lactic acid level of 3 and a troponin of 0.0 47. His EKG showed sinus tachycardia which is improved by now. ST segment changes and the patient was seen over the anterior lead. Note that his subsequent troponin came back at 2.95 and the presentation is consistent with an acute non-STEMI. The patient's latest cardiac catheterization was done in May 2019 and he had severe triple vessel coronary artery disease in addition to a patent MILES to diagonal, patent SVG to OM, successful stenting of the distal an ostial RCA. The patient was also found to have a 70% lesion in the proximal LAD. His correlation profile is within normal limits. His cardiac rhythm is sinus. He is on a combination of Rocephin and Zithromax in addition to IV Solu Medrol 60 mg every 6 hours. On 08/26/2020, the patient is doing well. He just arrived from the catheter. As mentioned earlier, the patient sustained a non-STEMI and the patient was taken for a cardiac catheterization and he underwent stenting to the RCA. This was successful and is currently back to his room. He is hemodynamically stable laying down flat. His COPD is still being treated with a combination of bronchodilators and steroids and antibiotics. He does have some lower lobe pneumonia in addition. History of any chest pain for now. No other significant events otherwise. No cardiac arrhythmias have been noted. Family is at the bedside and I also had a discussion with his . No nausea. No vomiting. No abdominal pain. No chest pain. His shortness of breath is also improving. The patient is seen today 08/27/2020 in follow-up on the selective care unit. He is currently sitting up at the bedside. Awake and alert in no acute distress. He denies any chest pain. No worsening shortness of breath, cough or congestion. 18 O2 saturation in the 90s on 3 L/m per nasal cannula. Blood culture reveals no growth to date. Sputum culture reveals no growth. White count 16.5. Hemoglobin 13.9. Sodium 139. Potassium 3.9. Creatinine 0.91. He remains on bronchodilators, IV Solu-Medrol, antibiotics in the form of ceftriaxone and azithromycin. On Plavix and aspirin. Objective - Vital Signs Vital signs: Vital Signs Temp 97.8 F 08/27/20 07:58 Pulse 74 08/27/20 08:36 Resp 18 08/27/20 07:58 BP 148/71 08/27/20 07:58 Pulse Ox 95 08/27/20 07:58 Intake & Output 08/26/20 08/27/20 08/27/20 18:59 06:59 18:59 Intake Total 1503.881 Output Total 800 925 Balance 703.881 -925 Weight 113.6 kg 113.3 kg Intake: IV 250 Intake, IV Titration 753.881 Amount Heparin Sod,Pork in 0.45% 103.881 NaCl 25,000 unit In 0.45 % NaCl 1 250ml.bag @ 8.82 UNITS/KG/HR 10.002 mls/ hr IV .Q24H [facility] Rx#: [id number] Sodium Chloride 0.9% 1, 600 000 ml @ 75 mls/hr IV . [id number] [facility] Rx#:[id number] cefTRIAXone 2 gm In 50 Sodium Chloride 0.9% 50 ml @ 100 mls/hr IVPB Q24HR [facility] Rx#:[id number] Oral 500 Output: Urine 800 925 Uretheral (Cain) 800 250 Other: Voiding Method Toilet Toilet # Voids 1 1 - Exam GENERAL EXAM: Alert, very pleasant 75-year-old gentleman, on 3 L nasal cannula,, comfortable in no apparent distress. HEAD: Normocephalic. EYES: Normal reaction of pupils, equal size. NOSE: Clear with pink turbinates. THROAT: No erythema or exudates. NECK: No masses, no JVD. CHEST: No chest wall deformity. LUNGS: Equal air entry with few scattered rhonchi, crackles in the posterior bases CVS: S1 and S2 normal with no audible murmur, regular rhythm. ABDOMEN: No hepatosplenomegaly, normal bowel sounds, no guarding or rigidity. SPINE: No scoliosis or deformity SKIN: No rashes CENTRAL NERVOUS SYSTEM: No focal deficits, tone is normal in all 4 extremities. EXTREMITIES: There is no peripheral edema. No clubbing, no cyanosis. Peripheral pulses are intact. - Labs CBC & Chem 7: 08/27/20 06:53 08/27/20 06:53 Labs: Abnormal Lab Results - Last 24 Hours (Table) 08/26/20 08/26/20 08/26/20 Range/Units 06:54 12:46 16:36 WBC (3.8-10.6) k/uL Neutrophils # (1.3-7.7) k/uL Lymphocytes # (1.0-4.8) k/uL Carbon Dioxide (22-30) mmol/L BUN (9-20) mg/dL Glucose (74-99) mg/dL POC Glucose (mg/dL) 132 H 168 H (75-99) mg/dL Procalcitonin 0.39 H (0.02-0.09) ng/mL 08/26/20 08/27/20 08/27/20 Range/Units 20:30 06:15 06:53 WBC (3.8-10.6) k/uL Neutrophils # (1.3-7.7) k/uL Lymphocytes # (1.0-4.8) k/uL Carbon Dioxide 31 H (22-30) mmol/L BUN 28 H (9-20) mg/dL Glucose 140 H (74-99) mg/dL POC Glucose (mg/dL) 137 H 138 H (75-99) mg/dL Procalcitonin (0.02-0.09) ng/mL 08/27/20 08/27/20 Range/Units 06:53 11:35 WBC 16.5 H (3.8-10.6) k/uL Neutrophils # 15.4 H (1.3-7.7) k/uL Lymphocytes # 0.6 L (1.0-4.8) k/uL Carbon Dioxide (22-30) mmol/L BUN (9-20) mg/dL Glucose (74-99) mg/dL POC Glucose (mg/dL) 148 H (75-99) mg/dL Procalcitonin (0.02-0.09) ng/mL Microbiology - Last 24 Hours (Table) 08/25/20 08:12 Blood Culture - Preliminary Blood No Growth after 48 hours 08/25/20 19:20 Gram Stain - Final Sputum Sputum Culture - Final 08/25/20 10:46 Blood Culture - Preliminary Blood No Growth after 24 hours Assessment and Plan Assessment: 1 Acute COPD exacerbation with a possibility of lower lobe pneumonia bilaterally. Calcitonin 0.39. CoVID 19 negative 2 Acute non-STEMI, currently free of any chest pain, post cardiac catheterizatio n stenting of the RCA 3 Acute hypoxic on chronic respiratory failure secondary to above 4 Chronic hypoxic respiratory failure admitted on oxygen at home at 2 L 5 Coronary artery disease with previous bypass surgery and previous history of stenting and please refer to the most recent catheterization from 2019, and the patient has a persistent lesion in his LAD based on that cardiac catheterization which could be the culprit for his acute non-STEMI 6 History of abdominal aortic aneurysm, post repair 7 Hypertension 8 Hyperlipidemia 9 Mild lactic acidosis 10 Previous history of TIA Plan The patient was seen and evaluated by Dr. Kathleen We'll continue with current antibiotics Continue bronchodilators and steroids Follow-up chest x-ray in a.m. We will continue to follow I, the cosigning physician, performed a history & physical examination of the patient. Lungs sounds with crackles in the posterior bases, diminished, few scattered rhonchi. Maintaining good O2 saturations in the 90s on 3 L/m per nasal cannula. I discussed the assessment and plan of care with my nurse practitioner, Surekha Bowden. I attest to the above note as dictated by her.
--- NOTE | 2020-08-27 14:25 | P.PN ---
Subjective Progress Note Date: 08/27/20 Physical pleasant 75-year-old gentleman with a past medical history significant for CAD, previous CABG, COPD, CVA, hypertension, hyperlipidemia and GERD. He falls in the office with Dr. Cleveland. Patient presented to the emergency department with shortness of breath. He was diagnosed with bilateral pneumonia. There is evidence of non-ST elevation MD with elevation of the troponins. Patient underwent catheterization yesterday which showed [place] 3 vessel coronary artery disease with patent MILES to the diuretic and venous grafts to the OM, patent stent within the LAD and a 95% focal stenosis in the proximal right coronary artery that is the in-stent restenosis. He subsequently underwent successful stenting of that lesion by Dr. Hernandez. Overall the patient is feeling fairly well. He continues to have shortness of breath. He continues to be followed by pulmonary with a repeat chest x-ray ordered to be done in the morning. Objective - Vital Signs Vital signs: Vital Signs Temp 97.8 F 08/27/20 07:58 Pulse 73 08/27/20 13:50 Resp 16 08/27/20 13:50 BP 147/79 08/27/20 12:12 Pulse Ox 98 08/27/20 12:12 Intake & Output 08/26/20 08/27/20 08/27/20 18:59 06:59 18:59 Intake Total 1503.881 550 Output Total 800 925 Balance 703.881 -925 550 Weight 113.6 kg 113.3 kg Intake: IV 250 Intake, IV Titration 753.881 50 Amount Heparin Sod,Pork in 0.45% 103.881 NaCl 25,000 unit In 0.45 % NaCl 1 250ml.bag @ 8.82 UNITS/KG/HR 10.002 mls/ hr IV .Q24H [facility] Rx#: [id number] Sodium Chloride 0.9% 1, 600 000 ml @ 75 mls/hr IV . [id number] [facility] Rx#:[id number] cefTRIAXone 2 gm In 50 50 Sodium Chloride 0.9% 50 ml @ 100 mls/hr IVPB Q24HR [facility] Rx#:[id number] Oral 500 500 Output: Urine 800 925 Uretheral (Cain) 800 250 Other: Voiding Method Toilet Toilet # Voids 1 1 2 - Exam PHYSICAL EXAMINATION: HEENT: Head is atraumatic, normocephalic. Pupils equal, round. Neck is supple. There is no elevated jugular venous pressure. HEART EXAMINATION: Heart sounds regular, S1 and S2 normal. No murmur or gallop heard. CHEST EXAMINATION: Lungs diminished with faint expiratory wheezing throughout. No chest wall tenderness is noted on palpation or with deep breathing. ABDOMEN: Soft, nontender. Bowel sounds are heard. No organomegaly noted. EXTREMITIES: 2+ peripheral pulses with no evidence of peripheral edema and no c patience tenderness noted. Right groin puncture site soft, clean, dry and intact. No evidence of hematoma or ecchymosis. NEUROLOGIC patient is awake, alert and oriented x3. . - Labs CBC & Chem 7: 08/27/20 06:53 08/27/20 06:53 Labs: Abnormal Lab Results - Last 24 Hours (Table) 08/26/20 08/26/20 08/26/20 Range/Units 06:54 16:36 20:30 WBC (3.8-10.6) k/uL Neutrophils # (1.3-7.7) k/uL Lymphocytes # (1.0-4.8) k/uL Carbon Dioxide (22-30) mmol/L BUN (9-20) mg/dL Glucose (74-99) mg/dL POC Glucose (mg/dL) 168 H 137 H (75-99) mg/dL Procalcitonin 0.39 H (0.02-0.09) ng/mL 08/27/20 08/27/20 08/27/20 Range/Units 06:15 06:53 06:53 WBC 16.5 H (3.8-10.6) k/uL Neutrophils # 15.4 H (1.3-7.7) k/uL Lymphocytes # 0.6 L (1.0-4.8) k/uL Carbon Dioxide 31 H (22-30) mmol/L BUN 28 H (9-20) mg/dL Glucose 140 H (74-99) mg/dL POC Glucose (mg/dL) 138 H (75-99) mg/dL Procalcitonin (0.02-0.09) ng/mL 08/27/20 Range/Units 11:35 WBC (3.8-10.6) k/uL Neutrophils # (1.3-7.7) k/uL Lymphocytes # (1.0-4.8) k/uL Carbon Dioxide (22-30) mmol/L BUN (9-20) mg/dL Glucose (74-99) mg/dL POC Glucose (mg/dL) 148 H (75-99) mg/dL Procalcitonin (0.02-0.09) ng/mL Microbiology - Last 24 Hours (Table) 08/25/20 10:46 Blood Culture - Preliminary Blood No Growth after 48 hours 08/25/20 08:12 Blood Culture - Preliminary Blood No Growth after 48 hours 08/25/20 19:20 Gram Stain - Final Sputum Sputum Culture - Final Assessment and Plan Assessment: 1 non-ST elevation MD status post PCI of the RCA 2 bilateral pneumonia 3 leukocytosis 4 acute exacerbation of COPD 5 history of CAD with CABG in 2004 and subsequent stenting of the RCA and LAD in the past 6 hypertension 7 hyperlipidemia Plan: From cardiology's perspective medications were reviewed, continue aspirin 81 mg by mouth daily, Lipitor 80 mg by mouth daily at bedtime, Plavix 75 mg by mouth daily, Imdur, Cozaar, and Toprol. From our standpoint when cleared by primary and pulmonary the patient may be discharged home. He will have a follow-up visit in the office with Dr. Cruz in about a week. The above dictated assessment and findings were discussed with signing physician. The impression and plan of care have been directed as dictated. Meena Way, Nurse Practitioner, acting as scribe for signing physician.
[2020-08-27] MEDS ORDERED: SENNOSIDES 8.6 MG TAB PO STA (16:38)
[2020-08-27 16:54] LABS: Glucose,Whole Blood 140 mg/dL (75-99)
[2020-08-27] MEDS: polyethylene glycoL 3350 17 GM POWD.PACK PO SCH (17:27)
[2020-08-27 20:19] LABS: Glucose,Whole Blood 154 mg/dL (75-99)
[2020-08-27] MEDS: MONTELUKAST 10 MG TAB PO SCH (21:03)
[2020-08-28] MEDS: IPRATROPIUM-ALBUTEROL 3 ML NEB INHALATION SCH ×4 (00:41→11:23)
--- NOTE | 2020-08-28 00:52 | P.PN ---
Subjective Progress Note Date: 08/26/20 Principal diagnosis: Acute COPD exacerbation Acute non-ST elevated LA status post cardiac catheterization. Patient is a 75-year-old male with a known history of COPD on home oxygen at 3 L intermittently, coronary artery disease with history of CABG, abdominal aortic repair, chronic CHF diastolic dysfunction and previous history of smoking presents to ER with the complaints of shortness of breath. Patient says that he woke up with shortness of breath today morning and was gasping for air. Patient did have mid retrosternal chest pain at that time without any radiation. No associated nausea or vomiting. No diaphoresis. Chest pain worsens with deep breathing. Temperature was checked by his daughter and was found to be 100.4 at home. Patient says that recently he has been using oxygen continuously. Does have cough with minimal sputum production. No leg swelling. Patient presents ER due to worsening shortness of breath. He did take 2 Tylenol tablets at home. EKG showed sinus tachycardia with heart rate 135. Chest x-ray showed patchy bilateral infiltrates correlate for pneumonia. Laboratory data showed WBC 13.6, hemoglobin 16.2 and platelets 156 Lactic acid 3.0 Troponin 0.047, 2.950 and proBNP 131 08/26/2020 Patient is awake alert oriented x3. Breathing status is better. Still having wheezing. Patient was continued on heparin drip. Patient underwent cardiac catheterization due to elevated troponin level and stent placement. Otherwise patient is IV steroids, breathing treatments and oxygen supplementation.. Pulmonary and cardiology is on board. Current medications reviewed. Objective - Vital Signs Vital signs: Vital Signs Temp 97.6 F 08/26/20 09:07 Pulse 88 08/26/20 09:07 Resp 18 08/26/20 09:07 BP 158/80 08/26/20 09:07 Pulse Ox 97 08/26/20 09:07 Intake & Output 08/25/20 08/26/20 08/26/20 18:59 06:59 18:59 Intake Total 240 70.014 103.881 Output Total 300 Balance -60 70.014 103.881 Weight 113.4 kg 113.6 kg Intake: Intake, IV Titration 70.014 103.881 Amount Heparin Sod,Pork in 0.45% 70.014 103.881 NaCl 25,000 unit In 0.45 % NaCl 1 250ml.bag @ 8.82 UNITS/KG/HR 10.002 mls/ hr IV .Q24H [facility] Rx#: [id number] Oral 240 Output: Urine 300 Other: # Voids 1 - Exam PHYSICAL EXAMINATION: Patient is lying in the bed comfortably, no acute distress, awake alert and oriented.. HEENT: Normocephalic. Neck is supple. Pupils reactive. Nostrils clear. Oral cavity is moist. Ears reveal no drainage. Neck reveals no JVD, carotid bruits, or thyromegaly. CHEST EXAMINATION: Trachea is central. Symmetrical expansion. Bilateral wheezing and scattered rhonchi,Nonlabored breathing. CARDIAC: Normal S1, S2 with no gallops. No murmurs ABDOMEN: Soft. Bowel sounds normal. No organomegaly. No abdominal bruits. Extremities: reveal no edema. No clubbing or cyanosis Neurologically awake, alert, oriented x3 with well-coordinated movements. No focal deficits noted Skin: No rash or skin lesions. Psychiatric: Coperative. Nonsuicidal Musculoskeletal: No joint swelling or deformity. Normal range of motion. - Labs CBC & Chem 7: 08/27/20 06:53 08/27/20 06:53 Labs: Abnormal Lab Results - Last 24 Hours (Table) 08/25/20 08/25/20 08/26/20 Range/Units 14:56 16:55 00:40 WBC (3.8-10.6) k/uL Neutrophils # (1.3-7.7) k/uL Lymphocytes # (1.0-4.8) k/uL APTT 34.9 H (22.0-30.0) sec Chloride (98-107) mmol/L BUN (9-20) mg/dL Glucose (74-99) mg/dL POC Glucose (mg/dL) (75-99) mg/dL Troponin I 2.950 H* 3.260 H* (0.000-0.034) ng/mL 08/26/20 08/26/20 08/26/20 Range/Units 06:11 06:54 06:54 WBC 16.4 H (3.8-10.6) k/uL Neutrophils # 15.4 H (1.3-7.7) k/uL Lymphocytes # 0.6 L (1.0-4.8) k/uL APTT (22.0-30.0) sec Chloride 96 L (98-107) mmol/L BUN 21 H (9-20) mg/dL Glucose 166 H (74-99) mg/dL POC Glucose (mg/dL) 157 H (75-99) mg/dL Troponin I (0.000-0.034) ng/mL 08/26/20 Range/Units 06:54 WBC (3.8-10.6) k/uL Neutrophils # (1.3-7.7) k/uL Lymphocytes # (1.0-4.8) k/uL APTT 51.7 H (22.0-30.0) sec Chloride (98-107) mmol/L BUN (9-20) mg/dL Glucose (74-99) mg/dL POC Glucose (mg/dL) (75-99) mg/dL Troponin I (0.000-0.034) ng/mL Microbiology - Last 24 Hours (Table) 08/25/20 08:12 Blood Culture - Preliminary Blood No Growth after 24 hours 08/25/20 19:20 Gram Stain - Preliminary Sputum Sputum Culture - Preliminary Assessment and Plan Assessment: Elevated troponin level due to non-ST elevated MIPatient is status post cardiac catheterization and stent placement. Shortness of breath secondary to acute COPD exacerbation and pneumonia Bilateral pneumonia with patchy infiltrates on chest x-ray Sepsis secondary to pneumonia. Patient does have leukocytosis and tachycardia lactic acidosis Acute on chronic hypoxic respiratory failure Chronic hypoxic respiratory failure secondary to COPD on 3 L oxygen intermittently at home Coronary artery disease with history of CABG History of abdominal aortic aneurysm repair Hypertension Hyperlipidemia DVT prophylaxis Plan: Patient is status post cardiac catheterization and stent placement. Patient be continued on antibiotics in the form of ceftriaxone and azithromycin. Patient was started on IV Solu-Medrol and breathing treatments and continue with home blood pressure medications. Continue with aspirin statins and Plavix. 2-D echocardiogram was ordered. Cardiology and pulmonary is on board. off heparin drip. Continue with telemetry monitoring. Further recommendations based on the clinical course. Time with Patient: Greater than 30
--- NOTE | 2020-08-28 00:54 | P.PN ---
Subjective Progress Note Date: 08/27/20 Principal diagnosis: Acute COPD exacerbation Acute non-ST elevated NM status post cardiac catheterization. Patient is a 75-year-old male with a known history of COPD on home oxygen at 3 L intermittently, coronary artery disease with history of CABG, abdominal aortic repair, chronic CHF diastolic dysfunction and previous history of smoking presents to ER with the complaints of shortness of breath. Patient says that he woke up with shortness of breath today morning and was gasping for air. Patient did have mid retrosternal chest pain at that time without any radiation. No associated nausea or vomiting. No diaphoresis. Chest pain worsens with deep breathing. Temperature was checked by his daughter and was found to be 100.4 at home. Patient says that recently he has been using oxygen continuously. Does have cough with minimal sputum production. No leg swelling. Patient presents ER due to worsening shortness of breath. He did take 2 Tylenol tablets at home. EKG showed sinus tachycardia with heart rate 135. Chest x-ray showed patchy bilateral infiltrates correlate for pneumonia. Laboratory data showed WBC 13.6, hemoglobin 16.2 and platelets 156 Lactic acid 3.0 Troponin 0.047, 2.950 and proBNP 131 08/26/2020 Patient is awake alert oriented x3. Breathing status is better. Still having wheezing. Patient was continued on heparin drip. Patient underwent cardiac catheterization due to elevated troponin level and stent placement. Otherwise patient is IV steroids, breathing treatments and oxygen supplementation.. Pulmonary and cardiology is on board. 08/27/2020 Status post cardiac catheterization and stent placement yesterday. Patient is currently resting in the bed comfortably. Breathing status is better. Still having exertional dyspnea. Expiratory wheezing is present. No complaints of chest pain. Patient is being continued on IV steroids, antibiotics and duo nebs. Repeat chest x-ray was ordered. Anticipate discharge in the next 24 hours with more clinical improvement. Current medications reviewed. Objective - Vital Signs Vital signs: Vital Signs Temp 97.8 F 08/27/20 15:48 Pulse 72 08/27/20 16:36 Resp 16 08/27/20 15:48 BP 158/86 08/27/20 15:48 Pulse Ox 98 08/27/20 15:48 Intake & Output 08/26/20 08/27/20 08/27/20 18:59 06:59 18:59 Intake Total 3953.064 0402 Output Total 800 925 Balance 703.881 -925 1030 Weight 113.6 kg 113.3 kg Intake: IV 250 Intake, IV Titration 753.881 50 Amount Heparin Sod,Pork in 0.45% 103.881 NaCl 25,000 unit In 0.45 % NaCl 1 250ml.bag @ 8.82 UNITS/KG/HR 10.002 mls/ hr IV .Q24H [facility] Rx#: [id number] Sodium Chloride 0.9% 1, 600 000 ml @ 75 mls/hr IV . [id number] [facility] Rx#:[id number] cefTRIAXone 2 gm In 50 50 Sodium Chloride 0.9% 50 ml @ 100 mls/hr IVPB Q24HR [facility] Rx#:[id number] Oral 500 980 Output: Urine 800 925 Uretheral (Cain) 800 250 Other: Voiding Method Toilet Toilet # Voids 1 1 2 - Exam PHYSICAL EXAMINATION: Patient is lying in the bed comfortably, no acute distress, awake alert and oriented.. HEENT: Normocephalic. Neck is supple. Pupils reactive. Nostrils clear. Oral c avity is moist. Ears reveal no drainage. Neck reveals no JVD, carotid bruits, or thyromegaly. CHEST EXAMINATION: Trachea is central. Symmetrical expansion. Bilateral wheezing and scattered rhonchi,Nonlabored breathing. CARDIAC: Normal S1, S2 with no gallops. No murmurs ABDOMEN: Soft. Bowel sounds normal. No organomegaly. No abdominal bruits. Extremities: reveal no edema. No clubbing or cyanosis Neurologically awake, alert, oriented x3 with well-coordinated movements. No focal deficits noted Skin: No rash or skin lesions. Psychiatric: Coperative. Nonsuicidal Musculoskeletal: No joint swelling or deformity. Normal range of motion. - Labs CBC & Chem 7: 08/27/20 06:53 08/27/20 06:53 Labs: Abnormal Lab Results - Last 24 Hours (Table) 08/26/20 08/26/20 08/27/20 Range/Units 06:54 20:30 06:15 WBC (3.8-10.6) k/uL Neutrophils # (1.3-7.7) k/uL Lymphocytes # (1.0-4.8) k/uL Carbon Dioxide (22-30) mmol/L BUN (9-20) mg/dL Glucose (74-99) mg/dL POC Glucose (mg/dL) 137 H 138 H (75-99) mg/dL Procalcitonin 0.39 H (0.02-0.09) ng/mL 08/27/20 08/27/20 08/27/20 Range/Units 06:53 06:53 11:35 WBC 16.5 H (3.8-10.6) k/uL Neutrophils # 15.4 H (1.3-7.7) k/uL Lymphocytes # 0.6 L (1.0-4.8) k/uL Carbon Dioxide 31 H (22-30) mmol/L BUN 28 H (9-20) mg/dL Glucose 140 H (74-99) mg/dL POC Glucose (mg/dL) 148 H (75-99) mg/dL Procalcitonin (0.02-0.09) ng/mL 08/27/20 Range/Units 16:50 WBC (3.8-10.6) k/uL Neutrophils # (1.3-7.7) k/uL Lymphocytes # (1.0-4.8) k/uL Carbon Dioxide (22-30) mmol/L BUN (9-20) mg/dL Glucose (74-99) mg/dL POC Glucose (mg/dL) 140 H (75-99) mg/dL Procalcitonin (0.02-0.09) ng/mL Microbiology - Last 24 Hours (Table) 08/25/20 10:46 Blood Culture - Preliminary Blood No Growth after 48 hours 08/25/20 08:12 Blood Culture - Preliminary Blood No Growth after 48 hours 08/25/20 19:20 Gram Stain - Final Sputum Sputum Culture - Final Assessment and Plan Assessment: Elevated troponin level due to non-ST elevated MIPatient is status post cardiac catheterization and stent placement. Shortness of breath secondary to acute COPD exacerbation and pneumonia Bilateral pneumonia with patchy infiltrates on chest x-ray Sepsis secondary to pneumonia. Patient does have leukocytosis and tachycardia lactic acidosis Acute on chronic hypoxic respiratory failure Chronic hypoxic respiratory failure secondary to COPD on 3 L oxygen intermittently at home Coronary artery disease with history of CABG History of abdominal aortic aneurysm repair Hypertension Hyperlipidemia DVT prophylaxis Plan: Patient is status post cardiac catheterization and stent placement. Patient be continued on antibiotics in the form of ceftriaxone and azithromycin. Patient was started on IV Solu-Medrol and breathing treatments and continue with home blood pressure medications. Continue with aspirin statins and Plavix. 2-D echocardiogram was ordered. Cardiology and pulmonary is on board. off heparin drip. Continue with telemetry monitoring. Further recommendations based on the clinical course. Time with Patient: Greater than 30
[2020-08-28 04:59] VITALS: RESP 17
[2020-08-28 06:37] LABS: Glucose,Whole Blood 142 mg/dL (75-99)
[2020-08-28] MEDS: methylPREDNISolone SOD SUCCI 125 MG/2 ML VIAL IV SCH ×2 (06:40→12:54)
[2020-08-28] MEDS: PANTOPRAZOLE 40 MG TABLET PO SCH (06:40)
[2020-08-28] MEDS: INSULIN ASPART (NovoLOG) 100 UNIT/ML VIAL SQ SCH ×2 (06:40→12:22)
[2020-08-28 08:19] LABS: Basophils % (A) 0 %; Eosinophils # (A) 0.1 k/uL (0-0.7); Eosinophils % (A) 1 %; HCT 44.8 % (39.0-53.0); HGB 14.6 gm/dL (13.0-17.5); Lymphocytes # (A) 0.9 k/uL (1.0-4.8); Lymphocytes % (A) 5 %; MCH 31.4 pg (25.0-35.0); MCHC 32.5 g/dL (31.0-37.0); MCV 96.5 fL (80.0-100.0); Mean Platelet Volume 8.9; Monocytes # (A) 0.6 k/uL (0-1.0); Monocytes % (A) 4 %; Neutrophils # (A) 16.1 k/uL (1.3-7.7); Neutrophils % (A) 90 %; Platelet Count 217 k/uL (150-450); RBC 4.65 m/uL (4.30-5.90); RDW 13.5 % (11.5-15.5); WBC 17.8 k/uL (3.8-10.6)
[2020-08-28 08:28] LABS: African American GFR (CKD) >90 (>60 ml/min/1.73 sqM); Anion Gap 11 mmol/L; Blood Urea Nitrogen 26 mg/dL (9-20); Calcium 9.2 mg/dL (8.4-10.2); Carbon Dioxide 27 mmol/L (22-30); Chloride 97 mmol/L (98-107); Glucose 189 mg/dL (74-99); Non-African American GFR(CKD) 87 (>60 ml/min/1.73 sqM); Potassium 4.2 mmol/L (3.5-5.1); Sodium 135 mmol/L (137-145)
[2020-08-28] MEDS: CLOPIDOGREL 75 MG TAB PO SCH (08:42)
[2020-08-28] MEDS: AZITHROMYCIN 500 MG TAB PO SCH (08:42)
[2020-08-28] MEDS: ISOSORBIDE MONONITRATE ER 30 MG TAB.ER.24H PO SCH (08:42)
[2020-08-28] MEDS: ATORVASTATIN 80 MG TAB PO SCH (08:42)
[2020-08-28] MEDS: METOPROLOL SUCCINATE (ER) 50 MG TAB.ER.24H PO SCH (08:42)
[2020-08-28] MEDS: ASPIRIN 81 MG PO SCH (08:43)
[2020-08-28] MEDS: PREGABALIN 100 MG CAP PO SCH (08:43)
[2020-08-28] MEDS: LOSARTAN 50 MG TAB PO SCH (08:43)
[2020-08-28] MEDS: polyethylene glycoL 3350 17 GM POWD.PACK PO SCH (08:45)
[2020-08-28 08:50] VITALS: BP 144/80; TEMP 97.1
[2020-08-28] MEDS: HYDROcodone/APAP 5-325MG 1 EACH TAB PO PRN (11:21)
[2020-08-28 11:36] VITALS: PULSE 72
[2020-08-28 12:06] LABS: Glucose,Whole Blood 123 mg/dL (75-99)
--- NOTE | 2020-08-28 13:48 | P.PN ---
Subjective Progress Note Date: 08/28/20 CHIEF COMPLAINT: Abnormal troponin HISTORY OF PRESENT ILLNESS: 08/25/2020 This is a 75-year-old male with a past medical history significant for coronary artery disease, COPD, CVA/TIA, hypertension, hyperlipidemia, and GERD. Patient follows in the office with Dr. Cruz. We have been asked to see the patient in consultation for elevated troponin. Patient examined this afternoon at the bedside. Patient states he woke up around 3 AM and was feeling short of breath. Patient denied fever or cough, however according to the ER physician dictation note, the patient had a productive cough and a fever. Patient reports having some chest pain in the middle of the night as well. Pain was in the middle of his chest and was worse with inspiration. He denied any radiation of the pain. He states his gave him 2 Tylenol which relieved the pain. He denies having any further episodes of chest pain or pressure. Echocardiogram completed in March 2020 revealed ejection fraction 50-55%, mild mitral regurgitation, and mild tricuspid regurgitation. Patient underwent cardiac catheterization in May [address] Otto revealing severe triple vessel coronary artery disease, patent MILES to diagonal, pain and SVG to OM, and successful stenting of distal and ostial right coronary artery. Patient was also found to have 70% lesion of the proximal LAD and patient was recommended to undergo stenting of LAD in the future. 08/28/2020 Patient examined this morning at the bedside. Patient is status post cardiac cath on 08/26/2020 with PCI to the proximal RCA. Patient denies chest pain or pressure. He denies shortness of breath. Vital signs are stable. He is hoping to be discharged home today. PHYSICAL EXAM: VITAL SIGNS: Reviewed. GENERAL: Well-developed in no acute distress. HEENT: Head is normocephalic. Pupils are equal, round. Sclerae anicteric. Mucous membranes of the mouth are moist. Neck supple. No JVD or thyromegaly LUNGS: Respirations even and unlabored. Lungs diminished bilaterally. HEART: Regular rate and rhythm. S1 and S2 heard. ABDOMEN: Soft. Nondistended. Nontender. EXTREMITIES: Normal range of motion. No clubbing or cyanosis. Peripheral pulses intact. No lower extremity edema. Right groin cath site soft without hematoma. Pulses present. NEUROLOGIC: Awake and alert. Oriented x 3. ASSESSMENT: Bilateral pneumonia Leukocytosis Elevated lactic acid Non-ST elevated myocardial infarction, status post PCI to proximal RCA Acute exacerbation of COPD Coronary artery disease, status post CABG 3 in 2005, and PCI to distal and ostial right coronary artery in 2019 History of TIA Hypertension Hyperlipidemia GERD Hypomagnesemia PLAN: Continue current cardiac medications Patient is stable for discharge home today from a cardiac standpoint. He is to follow up on an outpatient basis. Nurse practitioner note has been reviewed by physician. Signing provider agrees with the documented findings, assessment, and plan of care. Objective - Vital Signs Vital signs: Vital Signs Temp 97.1 F L 08/28/20 08:00 Pulse 72 08/28/20 11:35 Resp 17 08/28/20 08:00 BP 144/80 08/28/20 08:00 Pulse Ox 95 08/28/20 08:00 Intake & Output 08/27/20 08/28/20 08/28/20 18:59 06:59 18:59 Intake Total 1510 240 Balance 1510 240 Weight 113.1 kg Intake: Intake, IV Titration 50 Amount cefTRIAXone 2 gm In 50 Sodium Chloride 0.9% 50 ml @ 100 mls/hr IVPB Q24HR [facility] Rx#:[id number] Oral 1460 240 Other: Voiding Method Toilet Toilet Toilet # Voids 2 1 # Bowel Movements 1 - Labs CBC & Chem 7: 08/28/20 07:53 08/28/20 07:53 Labs: Abnormal Lab Results - Last 24 Hours (Table) 08/27/20 08/27/20 08/28/20 Range/Units 16:50 20:17 06:36 WBC (3.8-10.6) k/uL Neutrophils # (1.3-7.7) k/uL Lymphocytes # (1.0-4.8) k/uL Sodium (137-145) mmol/L Chloride (98-107) mmol/L BUN (9-20) mg/dL Glucose (74-99) mg/dL POC Glucose (mg/dL) 140 H 154 H 142 H (75-99) mg/dL 08/28/20 08/28/20 08/28/20 Range/Units 07:53 07:53 11:48 WBC 17.8 H (3.8-10.6) k/uL Neutrophils # 16.1 H (1.3-7.7) k/uL Lymphocytes # 0.9 L (1.0-4.8) k/uL Sodium 135 L (137-145) mmol/L Chloride 97 L (98-107) mmol/L BUN 26 H (9-20) mg/dL Glucose 189 H (74-99) mg/dL POC Glucose (mg/dL) 123 H (75-99) mg/dL Microbiology - Last 24 Hours (Table) 08/25/20 10:46 Blood Culture - Preliminary Blood No Growth after 72 hours 08/25/20 08:12 Blood Culture - Preliminary Blood No Growth after 72 hours
--- NOTE | 2020-08-28 16:02 | P.PN ---
Subjective Progress Note Date: 08/28/20 Principal diagnosis: Acute exacerbation of COPD, possibility of bilateral lower lobe pneumonia 75-year-old male patient with known history of COPD and addition to history of coronary artery disease, previous bypass surgery, previous coronary stenting, coming in for worsening shortness of breath typical of an underlying COPD exacerbation. His last admission for septic exacerbation was back in 04/09/2020. At that time the patient was treated without any major complication and he was discharged home. He is coming in for worsening shortness of breath. He woke up with increased dyspnea and he also had increased bronchospasm wheezing. He apparently also experienced some nonradiating chest pain which ultimately recovered. His covid 90 testing came back negative. Since his arrival to the hospital, the patient has undergone further investigation including a chest x-ray that showed COPD and there are some limited bibasilar pulmonary infiltrates,, a white cell count that showed 13.7 and a hemoglobin of 16.2, and normal kidney function with a creatinine of 1.04, lactic acid level of 3 and a troponin of 0.0 47. His EKG showed sinus tachycardia which is improved by now. ST segment changes and the patient was seen over the anterior lead. Note that his subsequent troponin came back at 2.95 and the presentation is consistent with an acute non-STEMI. The patient's latest cardiac catheterization was done in May 2019 and he had severe triple vessel coronary artery disease in addition to a patent MILES to diagonal, patent SVG to OM, successful stenting of the distal an ostial RCA. The patient was also found to have a 70% lesion in the proximal LAD. His correlation profile is within normal limits. His cardiac rhythm is sinus. He is on a combination of Rocephin and Zithromax in addition to IV Solu Medrol 60 mg every 6 hours. On 08/26/2020, the patient is doing well. He just arrived from the catheter. As mentioned earlier, the patient sustained a non-STEMI and the patient was taken for a cardiac catheterization and he underwent stenting to the RCA. This was successful and is currently back to his room. He is hemodynamically stable laying down flat. His COPD is still being treated with a combination of bronchodilators and steroids and antibiotics. He does have some lower lobe pneumonia in addition. History of any chest pain for now. No other significant events otherwise. No cardiac arrhythmias have been noted. Family is at the [facility] and I also had a discussion with his . No nausea. No vomiting. No abdominal pain. No chest pain. His shortness of breath is also improving. The patient is seen today 08/27/2020 in follow-up on the selective care unit. He is currently sitting up at the bedside. Awake and alert in no acute distress. He denies any chest pain. No worsening shortness of breath, cough or congestion. 18 O2 saturation in the 90s on 3 L/m per nasal cannula. Blood culture reveals no growth to date. Sputum culture reveals no growth. White count 16.5. Hemoglobin 13.9. Sodium 139. Potassium 3.9. Creatinine 0.91. He remains on bronchodilators, IV Solu-Medrol, antibiotics in the form of ceftria xone and azithromycin. On Plavix and aspirin. On 08/28/2020 patient seen in follow-up on selective care unit, breathing comfortably, pulse oximetry liters of oxygen 95%, patient underwent successful stenting of the RCA to 2020, has had no chest pain, no complaints of worsening dyspnea, less chest x-ray was on 08/26/2020 showing COPD with interstitial opacities and patchy bibasilar infiltrates. Pro-calcitonin level was low at 0.39, patient tested negative for coronavirus. He is on empiric antibiotics in the form of azithromycin and Rocephin, he is on bronchodilators. His blood and sputum cultures have been negative. He has had no fever or chills. No chest pain or hemoptysis. He is anxious to go home today, his been cleared for discharge per cardiology. Objective - Vital Signs Vital signs: Vital Signs Temp 97.1 F L 08/28/20 08:00 Pulse 72 08/28/20 11:35 Resp 17 08/28/20 08:00 BP 144/80 08/28/20 08:00 Pulse Ox 95 08/28/20 08:00 Intake & Output 08/27/20 08/28/20 08/28/20 18:59 06:59 18:59 Intake Total 1510 240 Balance 1510 240 Weight 113.1 kg Intake: Intake, IV Titration 50 Amount cefTRIAXone 2 gm In 50 Sodium Chloride 0.9% 50 ml @ 100 mls/hr IVPB Q24HR [facility] Rx#:[id number] Oral 1460 240 Other: Voiding Method Toilet Toilet Toilet # Voids 2 1 # Bowel Movements 1 - Exam GENERAL EXAM: Alert, very pleasant, 75-year-old white male, 3 L of oxygen pulse ox 94% comfortable in no apparent distress. HEAD: Normocephalic/atraumatic. EYES: Normal reaction of pupils, equal size. Conjunctiva pink, sclera white. NOSE: Clear with pink turbinates. THROAT: No erythema or exudates. NECK: No masses, no JVD, no thyroid enlargement, no adenopathy. CHEST: No chest wall deformity. Symmetrical expansion. LUNGS: Equal air entry with no crackles, wheeze, rhonchi or dullness. CVS: Regular rate and rhythm, normal S1 and S2, no gallops, no murmurs, no rubs ABDOMEN: Soft, nontender. No hepatosplenomegaly, normal bowel sounds, no guarding or rigidity. EXTREMITIES: No clubbing, no edema, no cyanosis, 2+ pulses and upper and lower extremities. MUSCULOSKELETAL: Muscle strength and tone normal. SPINE: No scoliosis or deformity SKIN: No rashes CENTRAL NERVOUS SYSTEM: Alert and oriented -3. No focal deficits, tone is normal in all 4 extremities. PSYCHIATRIC: Alert and oriented -3. Appropriate affect. Intact judgment and insight. - Labs CBC & Chem 7: 08/28/20 07:53 08/28/20 07:53 Labs: Abnormal Lab Results - Last 24 Hours (Table) 08/27/20 08/27/20 08/28/20 Range/Units 16:50 20:17 06:36 WBC (3.8-10.6) k/uL Neutrophils # (1.3-7.7) k/uL Lymphocytes # (1.0-4.8) k/uL Sodium (137-145) mmol/L Chloride (98-107) mmol/L BUN (9-20) mg/dL Glucose (74-99) mg/dL POC Glucose (mg/dL) 140 H 154 H 142 H (75-99) mg/dL 08/28/20 08/28/20 08/28/20 Range/Units 07:53 07:53 11:48 WBC 17.8 H (3.8-10.6) k/uL Neutrophils # 16.1 H (1.3-7.7) k/uL Lymphocytes # 0.9 L (1.0-4.8) k/uL Sodium 135 L (137-145) mmol/L Chloride 97 L (98-107) mmol/L BUN 26 H (9-20) mg/dL Glucose 189 H (74-99) mg/dL POC Glucose (mg/dL) 123 H (75-99) mg/dL Microbiology - Last 24 Hours (Table) 08/25/20 10:46 Blood Culture - Preliminary Blood No Growth after 72 hours 08/25/20 08:12 Blood Culture - Preliminary Blood No Growth after 72 hours Assessment and Plan Plan: Assessment: 1 Acute COPD exacerbation with a possibility of lower lobe pneumonia bilaterally. Calcitonin 0.39. CoVID 19 negative 2 Acute non-STEMI, currently free of any chest pain, post cardiac catheterization stenting of the RCA 3 Acute hypoxic on chronic respiratory failure secondary to above 4 Chronic hypoxic respiratory failure admitted on oxygen at home at 2 L 5 Coronary artery disease with previous bypass surgery and previous history of stenting and please refer to the most recent catheterization from 2019, and the patient has a persistent lesion in his LAD based on that cardiac catheterization which could be the culprit for his acute non-STEMI 6 History of abdominal aortic aneurysm, post repair 7 Hypertension 8 Hyperlipidemia 9 Mild lactic acidosis 10 Previous history of TIA Plan: Clinically patient has remained stable, no fever or chills, no worsening dyspnea, wean FiO2, increase activity as tolerated, stable for discharge home from pulmonary perspective as long as he has been cleared by cardiology, follow- up with Dr. Chin in 7-10 days in the office I performed a history & physical examination of the patient and discussed their management with my nurse practitioner, Jess Beach. I reviewed the nurse practitioner's note and agree with the documented findings and plan of care. Lung sounds are positive for dimnished breath sounds. The findings and the impression was discussed with the patient. I attest to the documentation by the nurse practitioner. Time with Patient: Less than 30
--- NOTE | 2020-08-28 16:03 | P.DS ---
Providers Date of admission: 08/25/20 10:16 Expected date of discharge: 08/28/20 Attending physician: Kerwin Turner Consults: 08/25/20 10:16 Consult Physician Routine Consulting Provider: Christa Chin Consult Reason/Comments: pneumonia and COPD Do you want consulting provider notified?: Yes 08/25/20 10:18 Consult Physician Routine Consulting Provider: Dulce Hernandez Consult Reason/Comments: elevated troponin Do you want consulting provider notified?: Yes 08/26/20 12:13 Consult Physician Routine Consulting Provider: [facility] Consult Reason/Comments: Post Interventional patient Do you want consulting provider notified?: Already Contacted Primary care physician: [facility] Hospital Course: Final diagnosis Elevated troponin level due to non-ST elevated MIPatient is status post cardiac catheterization and stent placement. Shortness of breath secondary to acute COPD exacerbation and pneumonia Bilateral pneumonia with patchy infiltrates on chest x-ray Sepsis secondary to pneumonia. Patient does have leukocytosis and tachycardia lactic acidosis Acute on chronic hypoxic respiratory failure Chronic hypoxic respiratory failure secondary to COPD on 3 L oxygen intermittently at home Coronary artery disease with history of CABG History of abdominal aortic aneurysm repair Hypertension Hyperlipidemia DVT prophylaxis full code Discharge disposition Patient is being discharged in a stable condition with guarded prognosis to home. Patient will follow-up with [facility] upon discharge. Patient will also follow-up with cardiology and pulmonary as scheduled next week. Patient will continue with oral antibiotics in the form of Augmentin twice daily for the next one week along with a prednisone taper. Total time taken is greater than 35 minutes. Hospital course Acute COPD exacerbation Acute non-ST elevated ME status post cardiac catheterization. Patient is a 75-year-old male with a known history of COPD on home oxygen at 3 L intermittently, coronary artery disease with history of CABG, abdominal aortic repair, chronic CHF diastolic dysfunction and previous history of smoking presents to ER with the complaints of shortness of breath. Patient says that he woke up with shortness of breath today morning and was gasping for air. Patient did have mid retrosternal chest pain at that time without any radiation. No associated nausea or vomiting. No diaphoresis. Chest pain worsens with deep breathing. Temperature was checked by his daughter and was found to be 100.4 at home. Patient says that recently he has been using oxygen continuously. Does have cough with minimal sputum production. No leg swelling. Patient presents ER due to worsening shortness of breath. He did take 2 Tylenol tablets at home. EKG showed sinus tachycardia with heart rate 135. Chest x-ray showed patchy bilateral infiltrates correlate for pneumonia. Laboratory data showed WBC 13.6, hemoglobin 16.2 and platelets 156 Lactic acid 3.0 Troponin 0.047, 2.950 and proBNP 131 08/26/2020 Patient is awake alert oriented x3. Breathing status is better. Still having wheezing. Patient was continued on heparin drip. Patient underwent cardiac catheterization due to elevated troponin level and stent placement. Otherwise patient is IV steroids, breathing treatments and oxygen supplementation.. Pulmonary and cardiology is on board. 08/27/2020 Status post cardiac catheterization and stent placement yesterday. Patient is currently resting in the bed comfortably. Breathing status is better. Still having exertional dyspnea. Expiratory wheezing is present. No complaints of chest pain. Patient is being continued on IV steroids, antibiotics and duo nebs. Repeat chest x-ray was ordered. Anticipate discharge in the next 24 hours with more clinical improvement 08/28/2020 Patient is seen and evaluated in follow-up asking to be discharged. Patient states his breathing is baseline and normally wears 3 L of oxygen and has not worsened. Patient will follow-up with cardiology along with pulmonary in the outpatient setting. Patient to continue with oral antibiotics in form of Augmentin twice daily for the next one week along with a prednisone taper. Patient instructed to follow-up with the [place] clinic upon discharge. Currently no reports of chest pain, shortness of breath, or palpitations. Patient is afebrile. No reports of nausea or vomiting and patient is tolerating diet. On exam vital signs are stable. Cardio S1, S2 are muffled. Respiratory shows diminished breath sounds at the bases with no wheezing or rhonchi noted. Abdomen is soft and nontender. Nervous system shows no focal deficits. Please refer to medication reconciliation sheet for a list of medications. Patient Condition at Discharge: Fair Plan - Discharge Summary Discharge Rx Participant: No New Discharge Prescriptions: New Amoxicillin/Potassium Clav [Augmentin 875-125 Tablet] 1 tab PO Q12HR 7 Days #14 tab predniSONE 0 mg PO DIRECTED 20 Days #42 tab Discontinued Hydrochlorothiazide [hydroCHLOROthiazide] 25 mg PO DAILY No Action Budesonide-Formot 160-4.5 Mcg [Symbicort 160-4.5 Mcg Inhaler] 2 puff INHALATION RT-BID Pravastatin Sodium [Pravachol] 80 mg PO HS Loratadine [Claritin] 10 mg PO DAILY PRN PRN Reason: Allergy Symptoms Aspirin EC [Ecotrin Low Dose] 81 mg PO DAILY Pregabalin [Lyrica] 200 mg PO BID Montelukast [Singulair] 10 mg PO HS Isosorbide Mononitrate ER [Imdur] 30 mg PO DAILY Nitroglycerin Sl Tabs [Nitrostat] 0.4 mg SUBLINGUAL Q5M PRN #20 tab PRN Reason: Chest Pain Clopidogrel [Plavix] 75 mg PO DAILY #30 tab Pregabalin [Lyrica] 100 mg PO DAILY@1200 Omeprazole 40 mg PO AC-BRKFST Urea 20% Cream 1 applicate TOPICAL DAILY PRN PRN Reason: DRY FEET Ipratropium-Albuterol Nebulize [Duoneb 0.5 mg-3 mg/3 ml Soln] 3 ml INHALATION RT-QID #120 ml Albuterol Inhaler [Ventolin Hfa Inhaler] 2 puff INHALATION RT-QID PRN PRN Reason: Shortness Of Breath Losartan [Cozaar] 50 mg PO DAILY Metoprolol Succinate (ER) [Toprol XL] 50 mg PO DAILY Discharge Medication List Budesonide-Formot 160-4.5 Mcg [Symbicort 160-4.5 Mcg Inhaler] 2 puff INHALATION RT-BID 12/18/13 [History] Pravastatin Sodium [Pravachol] 80 mg PO HS 12/18/13 [History] Loratadine [Claritin] 10 mg PO DAILY PRN 09/19/15 [History] Aspirin EC [Ecotrin Low Dose] 81 mg PO DAILY 09/20/17 [History] Isosorbide Mononitrate ER [Imdur] 30 mg PO DAILY 06/08/19 [History] Montelukast [Singulair] 10 mg PO HS 06/08/19 [History] Pregabalin [Lyrica] 200 mg PO BID 06/08/19 [History] Clopidogrel [Plavix] 75 mg PO DAILY #30 tab 06/11/19 [Rx] Nitroglycerin Sl Tabs [Nitrostat] 0.4 mg SUBLINGUAL Q5M PRN #20 tab 06/11/19 [Rx] Omeprazole 40 mg PO AC-BRKFST 04/07/20 [History] Pregabalin [Lyrica] 100 mg PO DAILY@1200 04/07/20 [History] Urea 20% Cream 1 applicate TOPICAL DAILY PRN 04/07/20 [History] Ipratropium-Albuterol Nebulize [Duoneb 0.5 mg-3 mg/3 ml Soln] 3 ml INHALATION RT-QID #120 ml 04/10/20 [Rx] Albuterol Inhaler [Ventolin Hfa Inhaler] 2 puff INHALATION RT-QID PRN 08/25/20 [History] Losartan [Cozaar] 50 mg PO DAILY 08/25/20 [History] Metoprolol Succinate (ER) [Toprol XL] 50 mg PO DAILY 08/25/20 [History] Amoxicillin/Potassium Clav [Augmentin 875-125 Tablet] 1 tab PO Q12HR 7 Days #14 tab 08/28/20 [Rx] predniSONE 0 mg PO DIRECTED 20 Days #42 tab 08/28/20 [Rx] Follow up Appointment(s)/Referral(s): Dulce Hernandez MD [STAFF PHYSICIAN] - 09/04/20 9:30 am Christa Chin MD [STAFF PHYSICIAN] - 09/13/20 2:30 pm [facility],Clinic [Primary Care Provider] - 1-2 days Patient Instructions/Handouts: *Surgery [facility] - After Heart Catheterization - Metal Cutter Instructions Activity/Diet/Wound Care/Special Instructions: Activity Limited until follow-up Follow-up with primary care provider upon discharge Follow-up cardiology outpatient Follow-up pulmonary outpatient Continue with antibiotics and prednisone taper until finished Discharge Disposition: HOME SELF-CARE
== END 2020-08-28 13:28 | disposition home or self-care (01) | DRG 853 ==
LOC: EC 07:49 → 3SCARD 10:16
PROVIDERS: ADMIT Internal Medicine; ATTEND Internal Medicine
PROC: 027034Z Dilation of Coronary Artery, One Artery with Drug-eluting Intraluminal Device, Percutaneous Approach (ICD-10-PCS; principal; 2020-08-26 10:30)
PROC: B2111ZZ Fluoroscopy of Multiple Coronary Arteries using Low Osmolar Contrast (ICD-10-PCS; 2020-08-26 10:30)
PROC: B2131ZZ Fluoroscopy of Multiple Coronary Artery Bypass Grafts using Low Osmolar Contrast (ICD-10-PCS; 2020-08-26 10:30)
PROC: 4A023N7 Measurement of Cardiac Sampling and Pressure, Left Heart, Percutaneous Approach (ICD-10-PCS; 2020-08-26 10:30)
DX: A41.9 Sepsis, unspecified organism (principal); I21.4 Non-ST elevation (NSTEMI) myocardial infarction; J80 Acute respiratory distress syndrome; J18.9 Pneumonia, unspecified organism; E87.2 Acidosis; I50.32 Chronic diastolic (congestive) heart failure; T82.855A Stenosis of coronary artery stent, initial encounter; J44.0 Chronic obstructive pulmonary disease with (acute) lower respiratory infection; J44.1 Chronic obstructive pulmonary disease with (acute) exacerbation; E78.5 Hyperlipidemia, unspecified; E83.42 Hypomagnesemia; E86.0 Dehydration; I11.0 Hypertensive heart disease with heart failure; I49.3 Ventricular premature depolarization; K21.9 Gastro-esophageal reflux disease without esophagitis; Z20.822 Contact with and (suspected) exposure to COVID-19; Z96.1 Presence of intraocular lens; Y83.1 Surgical operation with implant of artificial internal device as the cause of abnormal reaction of the patient, or of later complication, without mention of misadventure at the time of the procedure; I25.10 Atherosclerotic heart disease of native coronary artery without angina pectoris; I25.2 Old myocardial infarction; Z79.02 Long term (current) use of antithrombotics/antiplatelets; Z99.81 Dependence on supplemental oxygen; Z98.42 Cataract extraction status, left eye; Z98.41 Cataract extraction status, right eye; Z95.1 Presence of aortocoronary bypass graft; Z87.891 Personal history of nicotine dependence; Z86.79 Personal history of other diseases of the circulatory system; Z86.73 Personal history of transient ischemic attack (TIA), and cerebral infarction without residual deficits; Z82.49 Family history of ischemic heart disease and other diseases of the circulatory system; Z79.899 Other long term (current) drug therapy; Z79.82 Long term (current) use of aspirin; Z79.51 Long term (current) use of inhaled steroids
CPT/HCPCS: 36415; 71046; 80048; 80053; 82550; 83605; 83735; 83880; 84145; 84484; 85025; 85347; 85610; 85730; 87040; 87070; 87205; 87635; 93005; 93306; 93459; 94640; 94760; 96365; 96375; 99291

== ENCOUNTER 2020-09-28 08:32 | Observation (INO) | payer OTHER, MEDICARE ==
[2020-09-28] MEDS ORDERED: NITROGLYCERIN OINT 1 INCH/GM PACKET TOPICAL STA (08:45)
[2020-09-28] MEDS ORDERED: ASPIRIN 81 MG PO STA (08:45)
[2020-09-28] MEDS ORDERED: NITROGLYCERIN SL TABS 0.4 MG TAB SUBLINGUAL STA (08:45)
[2020-09-28] MEDS ORDERED: SODIUM CHLORIDE 0.9% 500 ML 500 ML IV ONE (08:45)
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
[2020-09-28 09:10] LABS: Basophils # (A) 0.1 k/uL (0-0.2); Basophils % (A) 1 %; Eosinophils # (A) 0.3 k/uL (0-0.7); Eosinophils % (A) 4 %; HCT 41.2 % (39.0-53.0); HGB 13.6 gm/dL (13.0-17.5); Lymphocytes # (A) 1.3 k/uL (1.0-4.8); Lymphocytes % (A) 17 %; MCH 31.1 pg (25.0-35.0); MCV 94.3 fL (80.0-100.0); Monocytes # (A) 0.4 k/uL (0-1.0); Monocytes % (A) 5 %; Neutrophils # (A) 5.2 k/uL (1.3-7.7); Neutrophils % (A) 72 %; Platelet Count 151 k/uL (150-450); RBC 4.37 m/uL (4.30-5.90); RDW 14.4 % (11.5-15.5); WBC 7.3 k/uL (3.8-10.6)
[2020-09-28 09:21] LABS: Albumin 4.3 g/dL (3.5-5.0); Calcium 9.7 mg/dL (8.4-10.2); Magnesium 1.8 mg/dL (1.6-2.3); Total Bilirubin 0.7 mg/dL (0.2-1.3); Total Protein 6.9 g/dL (6.3-8.2)
--- NOTE | 2020-09-28 09:50 | XR ---
EXAMINATION TYPE: XR chest 2V DATE OF EXAM: 09/28/2020 COMPARISON: 08/26/2020 and 09/13/2020 HISTORY: 75-year-old male chest pain TECHNIQUE: PA and lateral views FINDINGS: Heart normal size. Atherosclerotic arch calcifications. Underlying bullous emphysema. Patchy intersti tial changes of the mid and lower lungs persist. Band of atelectasis or scar at the right upper lobe. No pleural effusion. Median sternotomy wires and CABG clips in the mediastinum. Retrocardiac lucency noted. IMPRESSION: 1. Bullous emphysema. Stable band of scar at the right upper lobe. 2. Increased interstitial changes in the mid and lower lungs appear relatively similar to 08/26/2020 a nd appear largely chronic. Follow-up if concern for subtle acute infiltrate. 3. Known moderate-sized hiatal hernia.
[2020-09-28 10:01] LABS: INR 0.9 (<1.2); Partial Thromboplastin Time 22.3 sec (22.0-30.0); Prothrombin Time 9.7 sec (9.0-12.0)
[2020-09-28] MEDS ORDERED: HEPARIN SODIUM,PORCINE 5,000 UNIT/ML 1 ML VIAL IV ONE (10:02)
[2020-09-28] MEDS ORDERED: NITROGLYCERIN SL TABS 0.4 MG TAB SUBLINGUAL PRN ×2 (10:11→12:14)
[2020-09-28] MEDS ORDERED: ALBUTEROL NEBULIZED 2.5 MG/3 ML INHALATION PRN (12:14)
[2020-09-28] MEDS ORDERED: UREA 20% TOPICAL PRN (12:14)
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
[2020-09-28] MEDS: NITROGLYCERIN OINT 1 INCH/GM PACKET TOPICAL SCH ×2 (13:44→21:38)
[2020-09-28] MEDS: SODIUM CHLORIDE 0.9% 1,000 ML IV SCH (13:45)
[2020-09-28] MEDS: HEPARIN SOD,PORK IN 0.45% NACL 25,000 UNIT in 0.45% NACL 1 250ML.BAG IV SCH (13:45)
[2020-09-28] MEDS: IPRATROPIUM-ALBUTEROL 3 ML NEB INHALATION SCH ×2 (15:03→19:20)
[2020-09-28] MEDS: SYMBICORT 160-4.5 MCG INHALER INHALATION SCH (19:20)
[2020-09-28 20:47] LABS: INR 0.9 (<1.2); Prothrombin Time 10.2 sec (9.0-12.0)
[2020-09-28] MEDS ORDERED: MONTELUKAST 10 MG TAB PO SCH (21:00)
[2020-09-28] MEDS ORDERED: PRAVASTATIN SODIUM 80 MG TAB PO SCH (21:00)
[2020-09-28] MEDS ORDERED: HEPARIN SODIUM,PORCINE 5,000 UNIT/ML 1 ML VIAL IV PRN (21:34)
[2020-09-28] MEDS: PREGABALIN 100 MG CAP PO SCH (21:46)
[2020-09-29] MEDS: NITROGLYCERIN OINT 1 INCH/GM PACKET TOPICAL SCH (02:01)
[2020-09-29] MEDS: SODIUM CHLORIDE 0.9% 1,000 ML IV SCH (02:04)
[2020-09-29 03:08] LABS: Partial Thromboplastin Time 54.2 sec (22.0-30.0); Prothrombin Time 10.3 sec (9.0-12.0)
[2020-09-29 03:35] LABS: Calcium 9.3 mg/dL (8.4-10.2); Potassium 3.9 mmol/L (3.5-5.1)
[2020-09-29] MEDS ORDERED: PANTOPRAZOLE 40 MG TABLET PO SCH (07:30)
[2020-09-29] MEDS: SYMBICORT 160-4.5 MCG INHALER INHALATION SCH (07:40)
[2020-09-29] MEDS: IPRATROPIUM-ALBUTEROL 3 ML NEB INHALATION SCH ×3 (07:40→15:16)
[2020-09-29] MEDS ORDERED: ACETAMINOPHEN TAB 325 MG TAB PO PRN (08:09)
[2020-09-29] MEDS ORDERED: DOBUTamine DRIP for NUC MED 500 MG in DEXTROSE/WATER 1 250ML.BAG IV PRN (08:22)
[2020-09-29] MEDS: PREGABALIN 100 MG CAP PO SCH (08:56)
[2020-09-29] MEDS ORDERED: ISOSORBIDE MONONITRATE ER 30 MG TAB.ER.24H PO SCH (09:00)
[2020-09-29] MEDS ORDERED: CLOPIDOGREL 75 MG TAB PO SCH (09:00)
[2020-09-29] MEDS ORDERED: METOPROLOL SUCCINATE (ER) 50 MG TAB.ER.24H PO SCH (09:00)
[2020-09-29] MEDS ORDERED: ASPIRIN 325 MG TAB PO SCH (09:00)
[2020-09-29] MEDS: HEPARIN SOD,PORK IN 0.45% NACL 25,000 UNIT in 0.45% NACL 1 250ML.BAG IV SCH (10:19)
[2020-09-29] MEDS ORDERED: HYDROcodone/APAP 5-325MG 1 EACH TAB PO ONE (11:00)
[2020-09-29] MEDS ORDERED: LOSARTAN 50 MG TAB PO SCH (11:30)
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
[2020-09-29] MEDS ORDERED: PREGABALIN 100 MG CAP PO SCH ×2 (12:00→21:00)
[2020-09-29 13:15] VITALS: BP 178/97; PULSE 85; RESP 16; TEMP 97.2
--- NOTE | 2020-09-29 13:33 | P.STRESS ---
- Stress Test Note Stress Test Results/Findings: Exam Performed: dobutamine stress echo with con Exam Date: 09/29/20 Reason for Exam: CP Height: 6 ft 2 in Weight: 113.4 kg Protocol: DOBUTAMINE STRESS ECHO W/ LUMASON Stage: 4 Duration of Exercise: 10:00 Resting Heart Rate: 75 Resting Blood Pressure: 137/69 Maximum Achieved Heart Rate: 135 Maximum Achieved Blood Pressure: 137/69 85% PMHR: 124 100% PMHR: 146 METS: NA Technologist Comment: Stress Test Results/Findings: Patient underwent dobutamine stress echo with infusion of dobutamine into Stage 4 for a total of 10 minutes. Patient's maximum heart rate was 135 which represented 92 % age-predicted maximum heart rate. Stress EKG portion: At baseline patient's EKG showed normal sinus rhythm, normal axis, no significant ST-T wave abnormalities. At peak dobutamine infusion, EKG showed frequent PVCs and nonspecific 0.[address] depressions in the inferior and lateral leads which is nondiagnostic. Stress echo portion: 2-D echocardiogram was performed in the parasternal long, personal short, apical 2 and apical four-chamber views at rest, low-dose, peak infusion and in r ecovery. At baseline, echocardiogram showed left ventricular ejection fraction 60% without wall motion abnormalities. With peak infusion, echocardiogram shows improvement in left ventricular ejection fraction, increase contractility, decrease in left ventricular dimension without wall motion abnormalities consistent with a normal response to dobutamine. Conclusions: 1. Normal stress EKG and echo response to dobutamine infusion without any evidence of inducible ischemia.
--- NOTE | 2020-09-29 16:38 | P.DS ---
Providers Date of admission: 09/28/20 10:20 Expected date of discharge: 09/29/20 Attending physician: Yudith Rivera Consults: 09/28/20 10:11 Consult Physician Urgent Consulting Provider: [facility] Consult Reason/Comments: Unstable angina Do you want consulting provider notified?: Yes Primary care physician: [facility] Hospital Course: Final Diagnosis -chest pain with typical features: Ruled out acute coronary syndromes -Acute renal failure: Improving -COPD without any acute exacerbation patient quit smoking -CVA TIA in the past -gastroesophageal reflux disease -Hyperlipidemia -Hypertension Discharge disposition Patient is being discharged in a stable condition with guarded prognosis to home. Patient will follow-up with Dr. Santana in the outpatient setting upon discharge. Patient will also follow-up with cardiology in the outpatient setting in a few weeks. Total time taken is greater than 35 minutes. Hospital course 75-year-old pleasant male came in with complains of chest pain pressure-like sensation which started today exertional lasted for few minutes radiating to the jaw pressure-like sensation denies any diaphoresis nausea lightheadedness or shortness of breath associated with that. Chest pain is moderate in severity reviewed completely by nitroglycerin. Patient had a cardiac catheterization and stenting about a month ago. Patient has a some nonspecific ST-T wave abnormalities appear to be present on the previous EKGs as well patient had some PVCs. Facet of troponin is negative. Patient creatinine usually is within normal limits and went up to 1.90 patient is on Seroquel patient had a normal ejection fraction after his cardiac catheterization. 09/29/2020 Patient is seen and evaluated in follow-up with no acute overnight issues. Patient underwent stress test which was negative and will follow-up with cardiology in the outpatient setting. Currently no reports of chest pain, worsening shortness of breath, or palpitations. Patient is afebrile. No reports of nausea or vomiting and patient is tolerating diet. Patient instructed to hold losartan, Lasix and lisinopril until follow-up with primary care provider. Patient will be discharged home today. On exam vital signs are stable. Cardio S1, S2 are muffled. Respiratory system shows diminished breath sounds at the bases with no wheezing or rhonchi noted. Abdomen is soft and obese, and nontender. Nervous system shows no focal deficits. Please refer to medication reconciliation sheet for a list of medications. Plan - Discharge Summary Discharge Rx Participant: No New Discharge Prescriptions: New Acetaminophen Tab [Tylenol] 650 mg PO Q6HR PRN tab PRN Reason: Fever And/ Or Pain Continue Budesonide-Formot 160-4.5 Mcg [Symbicort 160-4.5 Mcg Inhaler] 2 puff INHALATION RT-BID Pravastatin Sodium [Pravachol] 80 mg PO HS Loratadine [Claritin] 10 mg PO DAILY PRN PRN Reason: Allergy Symptoms Aspirin EC [Ecotrin Low Dose] 81 mg PO DAILY Pregabalin [Lyrica] 200 mg PO BID Montelukast [Singulair] 10 mg PO HS Isosorbide Mononitrate ER [Imdur] 30 mg PO DAILY Nitroglycerin Sl Tabs [Nitrostat] 0.4 mg SUBLINGUAL Q5M PRN #20 tab PRN Reason: Chest Pain Clopidogrel [Plavix] 75 mg PO DAILY #30 tab Pregabalin [Lyrica] 100 mg PO DAILY@1200 Omeprazole 40 mg PO AC-BRKFST Urea 20% Cream 1 applicate TOPICAL DAILY PRN PRN Reason: DRY FEET Ipratropium-Albuterol Nebulize [Duoneb 0.5 mg-3 mg/3 ml Soln] 3 ml INHALATION RT-QID #120 ml Albuterol Inhaler [Ventolin Hfa Inhaler] 2 puff INHALATION RT-QID PRN PRN Reason: Shortness Of Breath Losartan [Cozaar] 50 mg PO DAILY Metoprolol Succinate (ER) [Toprol XL] 50 mg PO DAILY Potassium Chloride [Klor-Con 20] 20 meq PO DAILY Discontinued Furosemide [Lasix] 40 mg PO DAILY Discharge Medication List Budesonide-Formot 160-4.5 Mcg [Symbicort 160-4.5 Mcg Inhaler] 2 puff INHALATION RT-BID 12/18/13 [History] Pravastatin Sodium [Pravachol] 80 mg PO HS 12/18/13 [History] Loratadine [Claritin] 10 mg PO DAILY PRN 09/19/15 [History] Aspirin EC [Ecotrin Low Dose] 81 mg PO DAILY 09/20/17 [History] Isosorbide Mononitrate ER [Imdur] 30 mg PO DAILY 06/08/19 [History] Montelukast [Singulair] 10 mg PO HS 06/08/19 [History] Pregabalin [Lyrica] 200 mg PO BID 06/08/19 [History] Clopidogrel [Plavix] 75 mg PO DAILY #30 tab 06/11/19 [Rx] Nitroglycerin Sl Tabs [Nitrostat] 0.4 mg SUBLINGUAL Q5M PRN #20 tab 06/11/19 [Rx] Omeprazole 40 mg PO AC-BRKFST 04/07/20 [History] Pregabalin [Lyrica] 100 mg PO DAILY@1200 04/07/20 [History] Urea 20% Cream 1 applicate TOPICAL DAILY PRN 04/07/20 [History] Ipratropium-Albuterol Nebulize [Duoneb 0.5 mg-3 mg/3 ml Soln] 3 ml INHALATION RT-QID #120 ml 04/10/20 [Rx] Albuterol Inhaler [Ventolin Hfa Inhaler] 2 puff INHALATION RT-QID PRN 08/25/20 [History] Losartan [Cozaar] 50 mg PO DAILY 08/25/20 [History] Metoprolol Succinate (ER) [Toprol XL] 50 mg PO DAILY 08/25/20 [History] Potassium Chloride [Klor-Con 20] 20 meq PO DAILY 09/28/20 [History] Acetaminophen Tab [Tylenol] 650 mg PO Q6HR PRN tab 09/29/20 [Rx] Follow up Appointment(s)/Referral(s): Guru Cruz MD [STAFF PHYSICIAN] - 10/17/20 3:15 pm () [facility],Clinic [Primary Care Provider] - 1-2 days Ambulatory/Diagnostic Orders: Basic Metabolic Panel [LAB.AMB] Time Frame: 3 Days, Location: None Selected Complete Blood Count w/diff [LAB.AMB] Time Frame: 2 Days, Location: None Selected Patient Instructions/Handouts: Transient Ischemic Attack (DC), Chest Pain (DC) Activity/Diet/Wound Care/Special Instructions: Activity Limited until follow-up follow up with primary care provider and cardiology outpatient Continue heart healthy diet Repeat labs in 2-3 days Continue with losartan and hold lisinopril and Lasix until repeat labs in follow-up with primary care provider and cardiology Discharge Disposition: HOME SELF-CARE
[2020-09-30] MEDS ORDERED: ASPIRIN 81 MG PO SCH (09:00)
== END 2020-09-29 15:28 | disposition home or self-care (01) ==
LOC: EC 08:32 → 1SOBS 10:20 → 6NMEDSUR 09-29 03:37
PROVIDERS: ADMIT Hospitalist; ATTEND Hospitalist
DX: R07.89 Other chest pain (principal); N17.9 Acute kidney failure, unspecified; J43.9 Emphysema, unspecified; I25.2 Old myocardial infarction; E78.5 Hyperlipidemia, unspecified; I11.0 Hypertensive heart disease with heart failure; I25.110 Atherosclerotic heart disease of native coronary artery with unstable angina pectoris; K21.9 Gastro-esophageal reflux disease without esophagitis; I34.0 Nonrheumatic mitral (valve) insufficiency; I50.9 Heart failure, unspecified; I49.3 Ventricular premature depolarization; K44.9 Diaphragmatic hernia without obstruction or gangrene; E66.9 Obesity, unspecified; Z98.42 Cataract extraction status, left eye; Z95.1 Presence of aortocoronary bypass graft; Z79.02 Long term (current) use of antithrombotics/antiplatelets; Z79.899 Other long term (current) drug therapy; Z82.49 Family history of ischemic heart disease and other diseases of the circulatory system; Z86.73 Personal history of transient ischemic attack (TIA), and cerebral infarction without residual deficits; Z98.41 Cataract extraction status, right eye; Z87.891 Personal history of nicotine dependence; Z20.822 Contact with and (suspected) exposure to COVID-19; Z96.1 Presence of intraocular lens; Z79.51 Long term (current) use of inhaled steroids; Z79.82 Long term (current) use of aspirin
CPT/HCPCS: 96366 ×3; 93005 ×2; 96376; 96361; 96365; 99291; 36415; 94640 ×4; 93351; 83880; 80061; 80053; 80048; 83735; 84484; 85025; 85610 ×2; 85730 ×2; 87635; 71046; G0378 ×3; J1250; J1644 ×3; Q9950

== ENCOUNTER 2021-03-22 12:16 | Inpatient (IN) | payer OTHER, MEDICARE ==
[2021-03-22 13:01] LABS: Basophils # (A) 0.1 k/uL (0-0.2); Basophils % (A) 1 %; Eosinophils # (A) 0.2 k/uL (0-0.7); Eosinophils % (A) 3 %; HCT 41.3 % (39.0-53.0); HGB 13.7 gm/dL (13.0-17.5); Lymphocytes % (A) 13 %; MCH 33.2 pg (25.0-35.0); MCHC 33.2 g/dL (31.0-37.0); MCV 99.8 fL (80.0-100.0); Mean Platelet Volume 9.2; Monocytes # (A) 0.3 k/uL (0-1.0); Monocytes % (A) 4 %; Neutrophils # (A) 6.3 k/uL (1.3-7.7); Neutrophils % (A) 78 %; Platelet Count 185 k/uL (150-450); RBC 4.13 m/uL (4.30-5.90); WBC 8.1 k/uL (3.8-10.6)
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
[2021-03-22 13:10] LABS: Appearance,Urine Clear (Clear); Bilirubin,Urine Negative (Negative); Blood,Urine Negative (Negative); Color,Urine Colorless; Glucose,Urine (UA) Negative (Negative); Ketones,Urine Negative (Negative); Leukocyte Esterase,Urine Negative (Negative); Nitrite,Urine Negative (Negative); Protein,Urine Negative (Negative); Specific Gravity,Urine 1.005 (1.001-1.035); Urobilinogen,Urine <2.0 mg/dL (<2.0)
[2021-03-22 13:13] LABS: INR 1.4 (<1.2); Partial Thromboplastin Time 27.6 sec (22.0-30.0); Prothrombin Time 14.1 sec (9.0-12.0)
[2021-03-22 13:17] LABS: ALT 32 U/L (4-49); AST 59 U/L (17-59); African American GFR (CKD) >90 (>60 ml/min/1.73 sqM); Alkaline Phosphatase 84 U/L (38-126); Anion Gap 11 mmol/L; Blood Urea Nitrogen 12 mg/dL (9-20); Calcium 8.2 mg/dL (8.4-10.2); Carbon Dioxide 30 mmol/L (22-30); Chloride 99 mmol/L (98-107); Glucose 117 mg/dL (74-99); Non-African American GFR(CKD) 86 (>60 ml/min/1.73 sqM); Potassium 2.9 mmol/L (3.5-5.1); Sodium 140 mmol/L (137-145); Total Bilirubin 0.9 mg/dL (0.2-1.3); Total Protein 6.7 g/dL (6.3-8.2)
--- NOTE | 2021-03-22 14:28 | XR ---
EXAMINATION TYPE: XR chest 2V DATE OF EXAM: 03/22/2021 COMPARISON: Chest x-ray September 28, 2020. Chest CT February 18, 2019. HISTORY: Difficulty in breathing. TECHNIQUE: Frontal and lateral views of the chest are obtained. FINDINGS: There are overlying sternal wires and mediastinal clips redemonstrated. There are chronic parenchymal changes bilaterally including right upper lung and bibasilar regions redemonstrated. Pers istent small to tiny right greater than left pleural thickening. Persistent mild cardiomegaly with at herosclerotic thoracic aorta. Osseous structures remain demineralized. Old lower lateral left rib fra ctures redemonstrated. Retrocardiac opacity consistent with moderate size hiatal hernia redemonstrate d. IMPRESSION: Chronic emphysematous and pulmonary fibrotic changes and cardiomegaly without new acute pulmonary process
[2021-03-22] MEDS ORDERED: POTASSIUM CHLORIDE ER 20 MEQ TAB.ER PO STA (15:21)
[2021-03-22] MEDS ORDERED: NALOXONE 0.4 MG/ML 1 ML VIAL IV PRN (15:22)
[2021-03-22] MEDS ORDERED: IBUPROFEN 400 MG TAB PO PRN (15:22)
[2021-03-22] MEDS ORDERED: ACETAMINOPHEN TAB 500 MG TAB PO STA (16:22)
[2021-03-22] MEDS: MAGNESIUM SULFATE-D5W PMX 1 GM in DEXTROSE/WATER 1 100ML.BAG IVPB SCH ×2 (16:22→18:46)
[2021-03-22] MEDS ORDERED: ALBUTEROL NEBULIZED 2.5 MG/3 ML INHALATION PRN (16:33)
[2021-03-22] MEDS ORDERED: LORATADINE 10 MG TAB PO PRN (16:33)
[2021-03-22] MEDS: METOPROLOL SUCCINATE (ER) 100 MG TAB.ER.24H PO SCH (18:45)
[2021-03-22] MEDS: PREGABALIN 100 MG CAP PO SCH ×2 (18:45→23:19)
[2021-03-22] MEDS ORDERED: ALPRAZolam 0.5 MG TAB PO STA (20:44)
[2021-03-22] MEDS: MONTELUKAST 10 MG TAB PO SCH (20:51)
[2021-03-22] MEDS: POTASSIUM CHLORIDE ER 20 MEQ TAB.ER PO SCH (20:51)
[2021-03-22] MEDS: PANTOPRAZOLE 40 MG TABLET PO SCH (20:51)
[2021-03-22] MEDS: PRAVASTATIN SODIUM 80 MG TAB PO SCH (20:52)
[2021-03-22] MEDS: AMITRIPTYLINE HCL 10 MG TAB PO SCH (20:52)
[2021-03-22] MEDS: IPRATROPIUM-ALBUTEROL 3 ML NEB INHALATION SCH (22:29)
[2021-03-22] MEDS: SYMBICORT 160-4.5 MCG INHALER INHALATION SCH (22:29)
[2021-03-22] MEDS: MELATONIN 3 MG TABLET PO PRN (23:20)
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
[2021-03-23] MEDS ORDERED: Potassium Replacement Protocol 1 EACH MISC MISCELLANE PRN (01:51)
[2021-03-23] MEDS ORDERED: Magnesium Replacement Protocol 1 EACH MISC MISCELLANE PRN (01:52)
[2021-03-23] MEDS: MAGNESIUM SULFATE-D5W PMX 1 GM in DEXTROSE/WATER 1 100ML.BAG IVPB SCH ×2 (03:30→04:10)
[2021-03-23] MEDS: IPRATROPIUM-ALBUTEROL 3 ML NEB INHALATION SCH ×4 (08:03→19:00)
[2021-03-23] MEDS ORDERED: FUROSEMIDE 40 MG TAB PO SCH (09:00)
[2021-03-23 09:27] LABS: Basophils # (A) 0.1 k/uL (0-0.2); Basophils % (A) 1 %; Eosinophils # (A) 0.3 k/uL (0-0.7); Eosinophils % (A) 3 %; HCT 39.8 % (39.0-53.0); HGB 13.4 gm/dL (13.0-17.5); Lymphocytes % (A) 10 %; MCH 33.9 pg (25.0-35.0); MCHC 33.6 g/dL (31.0-37.0); MCV 100.8 fL (80.0-100.0); Mean Platelet Volume 10.1; Monocytes # (A) 0.4 k/uL (0-1.0); Monocytes % (A) 4 %; Neutrophils # (A) 8.1 k/uL (1.3-7.7); Neutrophils % (A) 81 %; Platelet Count 164 k/uL (150-450); RBC 3.95 m/uL (4.30-5.90)
[2021-03-23] MEDS: SYMBICORT 160-4.5 MCG INHALER INHALATION SCH ×2 (09:48→19:00)
[2021-03-23 09:56] LABS: African American GFR (CKD) >90 (>60 ml/min/1.73 sqM); Anion Gap 8 mmol/L; Blood Urea Nitrogen 14 mg/dL (9-20); Calcium 8.3 mg/dL (8.4-10.2); Carbon Dioxide 32 mmol/L (22-30); Chloride 97 mmol/L (98-107); Glucose 168 mg/dL (74-99); Magnesium 1.8 mg/dL (1.6-2.3); Non-African American GFR(CKD) 84 (>60 ml/min/1.73 sqM); Potassium 3.2 mmol/L (3.5-5.1); Sodium 137 mmol/L (137-145)
[2021-03-23] MEDS: METOPROLOL SUCCINATE (ER) 100 MG TAB.ER.24H PO SCH (10:06)
[2021-03-23] MEDS: ISOSORBIDE MONONITRATE ER 30 MG TAB.ER.24H PO SCH (10:06)
[2021-03-23] MEDS: CLOPIDOGREL 75 MG TAB PO SCH (10:07)
[2021-03-23] MEDS: POTASSIUM CHLORIDE ER 20 MEQ TAB.ER PO SCH ×3 (10:07→20:57)
[2021-03-23] MEDS: PREGABALIN 100 MG CAP PO SCH ×3 (10:07→20:01)
[2021-03-23] MEDS: LOSARTAN 50 MG TAB PO SCH (10:07)
[2021-03-23] MEDS: RIVAROXABAN 20 MG TAB PO SCH (10:07)
[2021-03-23] MEDS: PANTOPRAZOLE 40 MG TABLET PO SCH ×2 (10:07→20:56)
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
[2021-03-23] MEDS ORDERED: LORazepam 2 MG/ML INJ IV PRN ×3 (10:11)
[2021-03-23] MEDS: ALPRAZolam 0.5 MG TAB PO PRN (10:29)
--- NOTE | 2021-03-23 11:31 | ECHOF ---
Referral Reason:afib MEASUREMENTS -------- HEIGHT: 188.0 cm WEIGHT: 114.8 kg BP: 132/70 RVIDd: 4.1 cm (< 3.3) IVSd: 1.3 cm (0.6 - 1.1) LVIDd: 5.1 cm (3.9 - 5.3) LVPWd: 1.3 cm (0.6 - 1.1) IVSs: 2.0 cm LVIDs: 3.7 cm LVPWs: 1.8 cm LA Diam: 4.3 cm (2.7 - 3.8) LAESV Index (A-L): 31.90 ml/m Ao Diam: 3.8 cm (2.0 - 3.7) AV Cusp: 2.1 cm (1.5 - 2.6) MV EXCURSION: 18.959 mm (> 18.000) MV EF SLOPE: 175 mm/s (70 - 150) EPSS: 0.6 cm RAP: 5.00 mmHg RVSP: 56.57 mmHg FINDINGS -------- Atrial fibrillation. This was a technically adequate study. The left ventricular size is normal. There is mild concentric left ventricular hypertrophy. Overa ll left ventricular systolic function is mild-moderately impaired with, an EF between 40 - 45 %. The right ventricle is moderately enlarged. LA is midly dilated 29-33ml/m2. The right atrium is normal in size. There is mild aortic valve sclerosis. Moderate mitral regurgitation is present. Moderate tricuspid regurgitation present. There is severe pulmonary hypertension. The right ventr icular systolic pressure, as measured by Doppler, is 56.57mmHg. Trace/mild (physiologic) pulmonic regurgitation. The aortic root is dilated measuring 3.8cm. IVC Not well visulized. There is no pericardial effusion. CONCLUSIONS -------- 1. The left ventricular size is normal. 2. There is mild concentric left ventricular hypertrophy. 3. Overall left ventricular systolic function is mild-moderately impaired with, an EF between 40 - 45 %. 4. The right ventricle is moderately enlarged. 5. LA is midly dilated 29-33ml/m2. 6. There is mild aortic valve sclerosis. 7. Moderate mitral regurgitation is present. 8. Moderate tricuspid regurgitation present. 9. There is severe pulmonary hypertension. 10. The right ventricular systolic pressure, as measured by Doppler, is 56.57mmHg. 11. Trace/mild (physiologic) pulmonic regurgitation. 12. There is no pericardial effusion. WAREHOUSE PERSON: Mildred Maloney RDCS
--- NOTE | 2021-03-23 13:41 | P.PN ---
Subjective Progress Note Date: 03/23/21 Patient is a 75-year-old male with a known history of coronary artery disease status post CABG, stent placement on 08/25/2020, chronic CHF, history of CVA/TIA with residual right-sided weakness and right eye peripheral vision changes,, COPD on oxygen at 3 L via nasal cannula, GERD, hearing disorder/deafness, hypertension, hyperlipidemia, history of HI, previous history of smoking and daily alcohol use and bilateral peripheral neuropathy and other multiple medical problems [facility] of shortness of breath and new onset atrial fibrillation. Patient states that [facility] [place] due to shortness of breath and increased swelling of the bilateral ankles for about a week. Patient had EKG in the office and was found to have atrial fibrillation with heart rate in 130s. Patient was sent to ER for cardiology evaluation. Otherwise patient denies any complaints of chest pain. Denies any palpitations. No dizziness or lightheadedness. No cough or sputum production. Denies any recent illnesses. No fever no chills. Patient states that he was recently started on Lasix about 2 weeks ago. Chest x-ray showed chronic emphysematous and pulmonary fibrotic changes and cardiomegaly without new acute pulmonary process. EKG showed atrial fibrillation. Ventricular rate 111 Laboratory data showed WBC 8.1 hemoglobin 13.7 and platelets 185 INR 1.4 Sodium 140 potassium 2.9 chloride 99 BUN 12 and creatinine 0.86 calcium 8.2 magnesium 1.0 Denies any history of atrial fibrillation. Somewhat poor historian. Does not know why he is on Xarelto. Patient was discharged on aspirin and Plavix as per discharge summary on 09/29/2020. 03/23/2021 Patient is seen and evaluated in follow-up continues to be dyspneic and currently maintained 3 L of oxygen via nasal cannula. Patient states he does wear oxygen in the outpatient setting. Patient also has breathing inhalational treatments and was maintained on oral Lasix. Patient has significant bilateral lower extremity swelling noted with 2+ pitting edema in legs are dependent currently. Instructed the patient to elevate lower extremities and also ordered Pancho wraps from toes up to the knees and again instructed the patient to elevate extremities while sitting in the chair. Patient also has an extensive history of drinking and most recent drink was 2 days ago before hospitalization and will monitor closely for any signs of withdrawal. Patient is extremely anxious and will add low-dose Xanax and monitor closely. Patient continues to have shortness of breath and will encourage to increase activity as tolerated. Review of systems: Constitutional: No reports of fatigue, fever, or chills, reports anxiety Cardiovascular: No reports of chest pain or palpitations Respiratory: reports continued shortness of breath and increased shortness of breath with minimal exertion GI: No reports of nausea, vomiting, or diarrhea, reports bloating : No reports of dysuria or retention Neurovascular: No reports of weakness or numbness All medications have been reviewed Active Medications Acetaminophen (Acetaminophen Tab 325 Mg Tab) 650 mg PO Q6HR PRN PRN Reason: Mild Pain or Fever > 100.5 Albuterol Sulfate (Albuterol Nebulized 2.5 Mg/3 Ml) 2.5 mg INHALATION RT-QID PRN PRN Reason: Shortness Of Breath Albuterol/Ipratropium (Ipratropium-Albuterol 3 Ml Neb) 3 ml INHALATION RT-QID [facility] Last Admin: 03/23/21 11:27 Dose: 3 ml Documented by: Alprazolam (Alprazolam 0.5 Mg Tab) 0.5 mg PO BID PRN PRN Reason: Anxiety Last Admin: 03/23/21 10:29 Dose: 0.5 mg Documented by: Amitriptyline HCl (Amitriptyline Hcl 10 Mg Tab) 10 mg PO HS [facility] Last Admin: 03/22/21 20:52 Dose: 10 mg Documented by: Budesonide/Formoterol Fumarate (Symbicort 160-4.5 Mcg Inhaler) 2 puff INHALATION RT-BID [facility] Last Admin: 03/23/21 09:48 Dose: Not Given Documented by: Clopidogrel Bisulfate (Clopidogrel 75 Mg Tab) 75 mg PO DAILY [facility] Last Admin: 03/23/21 10:07 Dose: 75 mg Documented by: Furosemide (Furosemide 10 Mg/Ml 4 Ml Vial) 40 mg IV Q8HR [facility] Ibuprofen (Ibuprofen 400 Mg Tab) 400 mg PO Q6HR PRN PRN Reason: Mild Pain or Fever > 100.5 Isosorbide Mononitrate (Isosorbide Mononitrate Er 30 Mg Tab.Er.24h) 30 mg PO DAILY [facility] Last Admin: 03/23/21 10:06 Dose: 30 mg Documented by: Loratadine (Loratadine 10 Mg Tab) 10 mg PO DAILY PRN PRN Reason: Allergy Symptoms Lorazepam (Lorazepam 2 Mg/Ml Inj) 1 mg IV Q2HR PRN PRN Reason: CIWA 8 or 9 Lorazepam (Lorazepam 2 Mg/Ml Inj) 1 mg IV Q1HR PRN PRN Reason: CIWA 10 to 15 Lorazepam (Lorazepam 2 Mg/Ml Inj) 2 mg IV Q10M PRN PRN Reason: CIWA 16 or higher Stop: 03/25/21 10:12 Losartan Potassium (Losartan 50 Mg Tab) 50 mg PO DAILY [facility] Last Admin: 03/23/21 10:07 Dose: 50 mg Documented by: Melatonin (Melatonin 3 Mg Tablet) 6 mg PO HS PRN PRN Reason: Insomnia Last Admin: 03/22/21 23:20 Dose: 6 mg Documented by: Metoprolol Succinate (Metoprolol Succinate (Er) 100 Mg Tab.Er.24h) 100 mg PO DAILY [facility] Last Admin: 03/23/21 10:06 Dose: 100 mg Documented by: Miscellaneous Information (Potassium Replacement Protocol 1 Each Misc) 1 each MISCELLANE DAILY PRN; Protocol PRN Reason: Per Protocol Miscellaneous Information (Magnesium Replacement Protocol 1 Each Misc) 1 each MISCELLANE DAILY PRN; Protocol PRN Reason: Per Protocol Montelukast Sodium (Montelukast 10 Mg Tab) 10 mg PO HS [facility] Last Admin: 03/22/21 20:51 Dose: 10 mg Documented by: Naloxone HCl (Naloxone 0.4 Mg/Ml 1 Ml Vial) 0.2 mg IV Q2M PRN PRN Reason: Opioid Reversal Pantoprazole Sodium (Pantoprazole 40 Mg Tablet) 40 mg PO BID [facility] Last Admin: 03/23/21 10:07 Dose: 40 mg Documented by: Potassium Chloride (Potassium Chloride Er 20 Meq Tab.Er) 20 meq PO BID [facility] Stop: 03/23/21 21:01 Last Admin: 03/23/21 10:07 Dose: 20 meq Documented by: Potassium Chloride (Potassium Chloride Er 20 Meq Tab.Er) 20 meq PO DAILY [facility] Last Admin: 03/23/21 10:07 Dose: 20 meq Documented by: Pravastatin Sodium (Pravastatin Sodium 80 Mg Tab) 80 mg PO HS [facility] Last Admin: 03/22/21 20:52 Dose: 80 mg Documented by: Pregabalin (Pregabalin 100 Mg Cap) 100 mg PO DAILY@1200 [facility] Last Admin: 03/23/21 12:08 Dose: 100 mg Documented by: Pregabalin (Pregabalin 100 Mg Cap) 200 mg PO BID [facility] Last Admin: 03/23/21 10:07 Dose: 200 mg Documented by: Rivaroxaban (Rivaroxaban 20 Mg Tab) 20 mg PO DAILY [facility]; Protocol Last Admin: 03/23/21 10:07 Dose: 20 mg Documented by: Objective - Vital Signs Vital signs: Vital Signs Temp 97.8 F 03/23/21 04:00 Pulse 80 03/23/21 04:00 Resp 22 03/23/21 04:00 BP 132/70 03/23/21 04:00 Pulse Ox 95 03/23/21 04:00 Intake & Output 03/22/21 03/23/21 03/23/21 18:59 06:59 18:59 Intake Total 236 Balance 236 Weight 115 kg Intake: Oral 236 Other: Voiding Method Toilet # Voids 0 1 - Exam Patient is lying in the bed comfortably, no acute distress, awake alert and oriented.. HEENT: Normocephalic. Neck is supple. Pupils reactive. Nostrils clear. Oral cavity is moist. Neck reveals no JVD, carotid bruits, or thyromegaly. CHEST EXAMINATION: Trachea is central. Symmetrical expansion. Bibasilar crackles present. No wheezing or rhonchi. Nonlabored breathing.. CARDIAC: Normal S1, S2 with no gallops. No murmurs ABDOMEN: Soft. Bowel sounds normal. No organomegaly. No abdominal bruits. Extremities: 1+ edema. No clubbing or cyanosis Neurologically awake, alert, oriented x3 with well-coordinated movements. No focal deficits noted Skin: No rash or skin lesions. Psychiatric: Coperative. Nonsuicidal Musculoskeletal: No joint swelling or deformity. Normal range of motion. - Labs CBC & Chem 7: 03/23/21 09:02 03/23/21 09:02 Labs: Abnormal Lab Results - Last 24 Hours (Table) 03/22/21 03/22/21 03/22/21 Range/Units 12:38 12:38 12:38 RBC 4.13 L (4.30-5.90) m/uL MCV (80.0-100.0) fL Neutrophils # (1.3-7.7) k/uL PT 14.1 H (9.0-12.0) sec INR 1.4 H (<1.2) Potassium 2.9 L (3.5-5.1) mmol/L Glucose 117 H (74-99) mg/dL Calcium 8.2 L (8.4-10.2) mg/dL Magnesium 1.0 L (1.6-2.3) mg/dL 03/23/21 Range/Units 09:02 RBC 3.95 L (4.30-5.90) m/uL MCV 100.8 H (80.0-100.0) fL Neutrophils # 8.1 H (1.3-7.7) k/uL PT (9.0-12.0) sec INR (<1.2) Potassium (3.5-5.1) mmol/L Glucose (74-99) mg/dL Calcium (8.4-10.2) mg/dL Magnesium (1.6-2.3) mg/dL Assessment and Plan Assessment: Persistent atrial fibrillation with rapid ventricular rate Severe hypokalemia and hypomagnesemia Coronary artery disease with history of stent placement on 08/25/2020 History of CABG Acute on Chronic CHF with diastolic dysfunction History of CVA/TIA with mild residual weakness and right peripheral vision changes COPD on home oxygen 3 L via nasal cannula Hearing disorder/deafness Hypertension Hyperlipidemia History of HI Previous history of smoking Alcohol use Bilateral lower extremity peripheral neuropathy DVT prophylaxis. Full code Plan: Patient will continue on telemetry monitoring. Home medications have been re sumed and patient continues on Xarelto and will continue his other medications. Patient was taking oral Lasix and will initiate IV Lasix and monitor closely. Patient continues on his baseline of 3 L via nasal cannula and will continue with breathing inhalational treatments as well. Patient underwent 2-D echo showing mild concentric left ventricular hypertrophy with overall LV systolic function is mild to moderately impaired with an EF of 40-45% with some moderate mitral and tricuspid regurgitation present along with severe pulmonary hypertension noted. Cardiology is following closely. Continue to replace electrolytes per protocol and repeat potassium today was 3.2 and will continue to replace the magnesium was 1.8 and will repeat a.m. labs. Current creatinine is 0.9 with a BUN of 14. Patient has extensive bilateral lower extremity pitting edema noted in recommend Pancho wraps from the toes up to the knees and elevating lower extremities while at rest. Encouraged increased activity as tolerated. Due to multiple complex medical issues, prognosis is guarded.
[2021-03-23] MEDS: FUROSEMIDE 10 MG/ML 4 ML VIAL IV SCH (16:14)
[2021-03-23] MEDS: AMITRIPTYLINE HCL 10 MG TAB PO SCH (20:56)
[2021-03-23] MEDS: PRAVASTATIN SODIUM 80 MG TAB PO SCH (20:56)
[2021-03-23] MEDS: MONTELUKAST 10 MG TAB PO SCH (20:57)
[2021-03-24] MEDS: FUROSEMIDE 10 MG/ML 4 ML VIAL IV SCH ×4 (00:07→22:50)
[2021-03-24] MEDS: ACETAMINOPHEN TAB 325 MG TAB PO PRN ×2 (03:10→13:43)
[2021-03-24] MEDS: ALPRAZolam 0.5 MG TAB PO PRN (03:13)
[2021-03-24 07:47] LABS: Calcium 8.2 mg/dL (8.4-10.2); Magnesium 1.5 mg/dL (1.6-2.3); Potassium 3.6 mmol/L (3.5-5.1)
[2021-03-24] MEDS: SYMBICORT 160-4.5 MCG INHALER INHALATION SCH ×2 (08:11→18:26)
[2021-03-24] MEDS: IPRATROPIUM-ALBUTEROL 3 ML NEB INHALATION SCH ×4 (08:11→18:26)
[2021-03-24] MEDS ORDERED: POTASSIUM CHLORIDE ER 20 MEQ TAB.ER PO SCH (09:00)
[2021-03-24] MEDS: LOSARTAN 50 MG TAB PO SCH (09:06)
[2021-03-24] MEDS: METOPROLOL SUCCINATE (ER) 100 MG TAB.ER.24H PO SCH (09:06)
[2021-03-24] MEDS: POTASSIUM CHLORIDE ER 20 MEQ TAB.ER PO SCH (09:07)
[2021-03-24] MEDS: PANTOPRAZOLE 40 MG TABLET PO SCH ×2 (09:07→20:44)
[2021-03-24] MEDS: RIVAROXABAN 20 MG TAB PO SCH (09:07)
[2021-03-24] MEDS: ISOSORBIDE MONONITRATE ER 30 MG TAB.ER.24H PO SCH (09:07)
[2021-03-24] MEDS: PREGABALIN 100 MG CAP PO SCH ×3 (09:07→20:44)
[2021-03-24] MEDS: MAGNESIUM SULFATE-D5W PMX 1 GM in DEXTROSE/WATER 1 100ML.BAG IVPB SCH ×2 (09:07→10:24)
[2021-03-24] MEDS: CLOPIDOGREL 75 MG TAB PO SCH (09:07)
[2021-03-24] MEDS ORDERED: MAGNESIUM SULFATE-D5W PMX 1 GM in DEXTROSE/WATER 1 100ML.BAG IVPB SCH (10:30)
--- NOTE | 2021-03-24 11:02 | PN ---
PROGRESS NOTE Mr. Kovacs is a 75-year-old male who presented with palpitations and evidence of atrial fibrillation. He has a history of atrial fibrillation diagnosed recently, history of coronary artery disease, history of cerebrovascular accident, has been followed by Dr. Cruz on a regular basis. He has gained weight recently and had significant peripheral edema. He is feeling better this morning. His breathing is stable. He denies any chest pain. He denies any dizziness or palpitations. He denies any nausea. He continues to be in atrial fibrillation with improvement in his ventricular response. He had an echocardiogram performed yesterday that revealed ejection fraction of 40% to 45% with moderate mitral and tricuspid regurgitation. He continues to be on Plavix 75 mg daily, Lasix 40 mg IV q.8 hours, isosorbide mononitrate 30 mg daily, losartan 50 mg daily, metoprolol succinate 100 mg daily, and Xarelto 20 mg daily. PHYSICAL EXAMINATION: Blood pressure is 127/70 with a heart rate in 90s. LUNGS: Clear. HEART: Irregularly irregular. S1, S2. No S3, with systolic murmur heard at the apex. No diastolic murmur. No rub. ABDOMEN: Soft, nontender. EXTREMITIES: Two plus edema bilaterally. LAB DATA: Lab data revealed BUN and creatinine of 13 and 0.97, potassium 3.6, hemoglobin 13.4. IMPRESSION: 1. Atrial fibrillation, anticoagulated, rate under better control at this time. 2. Symptoms of congestive heart failure with mildly impaired left ventricular systolic function. 3. History of coronary artery disease and percutaneous revascularization. 4. History of transient ischemic attack. 5. Hypertension. 6. Hyperlipidemia. RECOMMENDATIONS: Will continue IV diuresis for another 24 hours. I will continue to monitor his electrolytes. Will increase his activity gradually and, depending on his progress, further recommendations will be made. MMODL / IJN: [id number] /
[2021-03-24 16:42] LABS: Glucose,Whole Blood 107 mg/dL (75-99)
--- NOTE | 2021-03-24 17:25 | XR ---
EXAMINATION TYPE: XR knee complete RT DATE OF EXAM: 03/24/2021 CLINICAL HISTORY: Right knee pain after fall TECHNIQUE: Three views of the right knee are obtained. COMPARISON: None. FINDINGS: There is no acute fracture/dislocation evident in right knee. The tri-compartment joint spaces appea r within normal limits. The overlying soft tissue appears unremarkable. Atheromatous calcifications of the popliteal artery. No knee joint effusion. IMPRESSION: There is no acute fracture or dislocation in the right knee.
--- NOTE | 2021-03-24 18:18 | P.PN ---
Subjective Progress Note Date: 03/24/21 Principal diagnosis: Persistent atrial fibrillation Acute CHF Patient is a 75-year-old male with a known history of coronary artery disease status post CABG, stent placement on 08/25/2020, chronic CHF, history of CVA/TIA with residual right-sided weakness and right eye peripheral vision changes,, COPD on oxygen at 3 L via nasal cannula, GERD, hearing disorder/deafness, hypertension, hyperlipidemia, history of SC, previous history of smoking and daily alcohol use and bilateral peripheral neuropathy and other multiple medical problems [facility] complaints of shortness of breath and new onset atrial fibrillation. Patient states that he was seen [facility] [place] due to shortness of breath and increased swelling of the bilateral ankles for about a week. Patient had EKG in the office and was found to have atrial fibrillation with heart rate in 130s. Patient was sent to ER for cardiology evaluation. Otherwise patient denies any complaints of chest pain. Denies any palpitations. No dizziness or lightheadedness. No cough or sputum production. Denies any recent illnesses. No fever no chills. Patient states that he was recently st arted on Lasix about 2 weeks ago. Chest x-ray showed chronic emphysematous and pulmonary fibrotic changes and cardiomegaly without new acute pulmonary process. EKG showed atrial fibrillation. Ventricular rate 111 Laboratory data showed WBC 8.1 hemoglobin 13.7 and platelets 185 INR 1.4 Sodium 140 potassium 2.9 chloride 99 BUN 12 and creatinine 0.86 calcium 8.2 magnesium 1.0 Denies any history of atrial fibrillation. Somewhat poor historian. Does not know why he is on Xarelto. Patient was discharged on aspirin and Plavix as per discharge summary on 09/29/2020. 03/23/2021 Patient is seen and evaluated in follow-up continues to be dyspneic and currently maintained 3 L of oxygen via nasal cannula. Patient states he does wear oxygen in the outpatient setting. Patient also has breathing inhalational treatments and was maintained on oral Lasix. Patient has significant bilateral lower extremity swelling noted with 2+ pitting edema in legs are dependent currently. Instructed the patient to elevate lower extremities and also ordered Pancho wraps from toes up to the knees and again instructed the patient to elevate extremities while sitting in the chair. Patient also has an extensive history of drinking and most recent drink was 2 days ago before hospitalization and will monitor closely for any signs of withdrawal. Patient is extremely anxious and will add low-dose Xanax and monitor closely. Patient continues to have shortness of breath and will encourage to increase activity as tolerated. 03/24/2021 Patient is currently sitting on the side of the bed. Bilateral lower activity swelling is improving slowly. No complaints of chest pain or worsening shortness of breath. Continue on Lasix 40 mg every 8 hourly. Cardiology is on board. Bilateral lower extremities are Pancho wraped. Patient has been afebrile. No headache or dizziness or lightheadedness. Laboratory data showed sodium 139 potassium 3.6 chloride 95 bicarb is 36 BUN 13 and creatinine 0.97 and magnesium 1.5 which is being replaced. Review of systems: Constitutional: No reports of fatigue, fever, or chills, reports anxiety Cardiovascular: No reports of chest pain or palpitations Respiratory: reports continued shortness of breath and increased shortness of breath with minimal exertion GI: No reports of nausea, vomiting, or diarrhea, reports bloating : No reports of dysuria or retention Neurovascular: No reports of weakness or numbness All medications have been reviewed Objective - Vital Signs Vital signs: Vital Signs Temp 97.7 F 03/24/21 15:43 Pulse 80 03/24/21 18:11 Resp 20 03/24/21 18:11 BP 99/58 03/24/21 18:11 Pulse Ox 94 L 03/24/21 18:11 Intake & Output 03/23/21 03/24/21 03/24/21 18:59 06:59 18:59 Intake Total 592 540 Balance 592 540 Weight 117.8 kg 116 kg Intake: Oral 592 540 Other: Voiding Method Toilet Toilet # Voids 1 - Exam Patient is lying in the bed comfortably, no acute distress, awake alert and oriented.. HEENT: Normocephalic. Neck is supple. Pupils reactive. Nostrils clear. Oral cavity is moist. Neck reveals no JVD, carotid bruits, or thyromegaly. CHEST EXAMINATION: Trachea is central. Symmetrical expansion. Bibasilar crackles present. No wheezing or rhonchi. Nonlabored breathing.. CARDIAC: Normal S1, S2 with no gallops. No murmurs ABDOMEN: Soft. Bowel sounds normal. No organomegaly. No abdominal bruits. Extremities: 1+ edema. No clubbing or cyanosis Neurologically awake, alert, oriented x3 with well-coordinated movements. No focal deficits noted Skin: No rash or skin lesions. Psychiatric: Coperative. Nonsuicidal Musculoskeletal: No joint swelling or deformity. Normal range of motion. - Labs CBC & Chem 7: 03/23/21 09:02 03/24/21 06:52 Labs: Abnormal Lab Results - Last 24 Hours (Table) 03/24/21 03/24/21 Range/Units 06:52 16:41 Chloride 95 L (98-107) mmol/L Carbon Dioxide 36 H (22-30) mmol/L Glucose 115 H (74-99) mg/dL POC Glucose (mg/dL) 107 H (75-99) mg/dL Calcium 8.2 L (8.4-10.2) mg/dL Magnesium 1.5 L (1.6-2.3) mg/dL Assessment and Plan Assessment: Persistent atrial fibrillation with rapid ventricular rate Acute on Chronic CHF with diastolic dysfunction Severe hypokalemia and hypomagnesemia Coronary artery disease with history of stent placement on 08/25/2020 History of CABG History of CVA/TIA with mild residual weakness and right peripheral vision changes COPD on home oxygen 3 L via nasal cannula Hearing disorder/deafness Hypertension Hyperlipidemia History of SC Previous history of smoking Alcohol use Bilateral lower extremity peripheral neuropathy DVT prophylaxis. Full code Plan: Patient will continue on telemetry monitoring. Home medications have been resumed and patient continues on Xarelto and will continue his other medications. Patient was taking oral Lasix and will initiate IV Lasix and monitor closely. Patient continues on his baseline of 3 L via nasal cannula and will continue with breathing inhalational treatments as well. Patient underwent 2-D echo showing mild concentric left ventricular hypertrophy with overall LV systolic function is mild to moderately impaired with an EF of 40-45% with some moderate mitral and tricuspid regurgitation present along with severe pulmonary hypertension noted. Cardiology is following closely. Continue to replace electrolytes per protocol and repeat potassium today was 3.2 and will continue to replace the magnesium was 1.8 and will repeat a.m. labs. Current creatinine is 0.9 with a BUN of 14. Patient has extensive bilateral lower extremity pitting edema noted in recommend Pancho wraps from the toes up to the knees and elevating lower extremities while at rest. Encouraged increased activity as tolerated. Due to multiple complex medical issues, prognosis is guarded. Time with Patient: Greater than 30
[2021-03-24] MEDS: MONTELUKAST 10 MG TAB PO SCH (20:44)
[2021-03-24] MEDS: PRAVASTATIN SODIUM 80 MG TAB PO SCH (20:44)
[2021-03-24] MEDS: AMITRIPTYLINE HCL 10 MG TAB PO SCH (20:44)
[2021-03-25] MEDS: SYMBICORT 160-4.5 MCG INHALER INHALATION SCH ×2 (08:03→19:17)
[2021-03-25] MEDS: IPRATROPIUM-ALBUTEROL 3 ML NEB INHALATION SCH ×4 (08:03→19:17)
[2021-03-25] MEDS: METOPROLOL SUCCINATE (ER) 100 MG TAB.ER.24H PO SCH (08:43)
[2021-03-25] MEDS: PANTOPRAZOLE 40 MG TABLET PO SCH ×2 (08:43→20:01)
[2021-03-25] MEDS: ISOSORBIDE MONONITRATE ER 30 MG TAB.ER.24H PO SCH (08:43)
[2021-03-25] MEDS: POTASSIUM CHLORIDE ER 20 MEQ TAB.ER PO SCH (08:44)
[2021-03-25] MEDS: CLOPIDOGREL 75 MG TAB PO SCH (08:44)
[2021-03-25] MEDS: RIVAROXABAN 20 MG TAB PO SCH (08:44)
[2021-03-25] MEDS: LOSARTAN 50 MG TAB PO SCH (08:44)
[2021-03-25] MEDS: PREGABALIN 100 MG CAP PO SCH ×3 (08:44→20:01)
[2021-03-25] MEDS: FUROSEMIDE 10 MG/ML 4 ML VIAL IV SCH ×3 (08:44→22:52)
[2021-03-25 09:18] LABS: Basophils # (A) 0.1 k/uL (0-0.2); Basophils % (A) 1 %; Eosinophils # (A) 0.4 k/uL (0-0.7); Eosinophils % (A) 5 %; HCT 44.1 % (39.0-53.0); HGB 14.4 gm/dL (13.0-17.5); Lymphocytes # (A) 1.4 k/uL (1.0-4.8); Lymphocytes % (A) 17 %; MCH 33.3 pg (25.0-35.0); MCHC 32.7 g/dL (31.0-37.0); MCV 101.8 fL (80.0-100.0); Macrocytosis Slight; Mean Platelet Volume 9.3; Monocytes # (A) 0.3 k/uL (0-1.0); Monocytes % (A) 4 %; Neutrophils # (A) 5.7 k/uL (1.3-7.7); Neutrophils % (A) 72 %; Platelet Count 170 k/uL (150-450); RBC 4.33 m/uL (4.30-5.90); RDW 13.9 % (11.5-15.5); WBC 7.9 k/uL (3.8-10.6)
[2021-03-25 09:34] LABS: Calcium 8.8 mg/dL (8.4-10.2); Potassium 3.9 mmol/L (3.5-5.1)
--- NOTE | 2021-03-25 12:07 | PN ---
PROGRESS NOTE Mr. Kovacs is a 75-year-old male who has a history of coronary artery disease, history of cerebrovascular accident, atrial fibrillation. He came in with significant peripheral edema. He is feeling better this morning. He was unsteady yesterday. He has lost weight. He is diuresing well. He has ejection fraction is 40% to 45% with moderate mitral and tricuspid regurgitation. He has a prior history of coronary artery disease and percutaneous revascularization. He continues to be on Plavix 75 mg daily, Lasix 40 mg IV q.8 hours, isosorbide mononitrate 30 mg daily, losartan 50 mg daily, metoprolol succinate 100 mg daily, pravastatin 80 mg daily, Lyrica, and Xarelto 20 mg daily. PHYSICAL EXAMINATION: Blood pressure is 102/50 with a heart rate in the 70s. LUNGS: A few crackles at the bases. HEART: Irregularly irregular. S1, S2. No S3. No rub appreciated. ABDOMEN: Soft, nontender, obese. EXTREMITIES: Decreased edema. LAB DATA: Lab data revealed an NT-proBNP of 1070, which improved compared to admission. BUN and creatinine are 17 and 1.02. Potassium is 3.9. Hemoglobin 14.4. IMPRESSION: 1. Congestive heart failure with a moderately impaired left ventricular systolic function. 2. Atrial fibrillation with controlled ventricular response, anticoagulated. 3. History of coronary artery disease. 4. History of transient ischemic attack. 5. Hypertension. 6. Hyperlipidemia. RECOMMENDATIONS: In view of his stable renal function and the persistent edema, I will continue intravenous diuretic for 24 hours, and if he is stable will switch him to oral tomorrow. Continue to increase his level of activity. Follow his rhythm and, depending on his progress, further recommendations will be made. MMODL / IJN: [id number] /
[2021-03-25 12:18] VITALS: RESP 18
[2021-03-25] MEDS: MAGNESIUM SULFATE-D5W PMX 1 GM in DEXTROSE/WATER 1 100ML.BAG IVPB SCH ×2 (12:47→13:50)
[2021-03-25] MEDS: ACETAMINOPHEN TAB 325 MG TAB PO PRN ×2 (15:12→22:51)
[2021-03-25] MEDS: ALPRAZolam 0.5 MG TAB PO PRN (17:23)
[2021-03-25] MEDS: PRAVASTATIN SODIUM 80 MG TAB PO SCH (20:02)
[2021-03-25] MEDS: AMITRIPTYLINE HCL 10 MG TAB PO SCH (20:02)
[2021-03-25] MEDS: MONTELUKAST 10 MG TAB PO SCH (20:02)
[2021-03-25] MEDS: MELATONIN 3 MG TABLET PO PRN (22:53)
--- NOTE | 2021-03-26 01:14 | P.PN ---
Subjective Progress Note Date: 03/25/21 Principal diagnosis: Persistent atrial fibrillation Acute CHF Patient is a 75-year-old male with a known history of coronary artery disease status post CABG, stent placement on 08/25/2020, chronic CHF, history of CVA/TIA with residual right-sided weakness and right eye peripheral vision changes,, COPD on oxygen at 3 L via nasal cannula, GERD, hearing disorder/deafness, hypertension, hyperlipidemia, history of RI, previous history of smoking and daily alcohol use and bilateral peripheral neuropathy and other multiple medical problems [facility] of shortness of breath and new onset atrial fibrillation. Patient states that [facility] [place] due to shortness of breath and increased swelling of the bilateral ankles for about a week. Patient had EKG in the office and was found to have atrial fibrillation with heart rate in 130s. Patient was sent to ER for cardiology evaluation. Otherwise patient denies any complaints of chest pain. Denies any palpitations. No dizziness or lightheadedness. No cough or sputum production. Denies any recent illnesses. No fever no chills. Patient states that he was recently st arted on Lasix about 2 weeks ago. Chest x-ray showed chronic emphysematous and pulmonary fibrotic changes and cardiomegaly without new acute pulmonary process. EKG showed atrial fibrillation. Ventricular rate 111 Laboratory data showed WBC 8.1 hemoglobin 13.7 and platelets 185 INR 1.4 Sodium 140 potassium 2.9 chloride 99 BUN 12 and creatinine 0.86 calcium 8.2 magnesium 1.0 Denies any history of atrial fibrillation. Somewhat poor historian. Does not know why he is on Xarelto. Patient was discharged on aspirin and Plavix as per discharge summary on 09/29/2020. 03/23/2021 Patient is seen and evaluated in follow-up continues to be dyspneic and currently maintained 3 L of oxygen via nasal cannula. Patient states he does wear oxygen in the outpatient setting. Patient also has breathing inhalational treatments and was maintained on oral Lasix. Patient has significant bilateral lower extremity swelling noted with 2+ pitting edema in legs are dependent currently. Instructed the patient to elevate lower extremities and also ordered Pancho wraps from toes up to the knees and again instructed the patient to elevate extremities while sitting in the chair. Patient also has an extensive history of drinking and most recent drink was 2 days ago before hospitalization and will monitor closely for any signs of withdrawal. Patient is extremely anxious and will add low-dose Xanax and monitor closely. Patient continues to have shortness of breath and will encourage to increase activity as tolerated. 03/24/2021 Patient is currently sitting on the side of the bed. Bilateral lower activity swelling is improving slowly. No complaints of chest pain or worsening shortness of breath. Continue on Lasix 40 mg every 8 hourly. Cardiology is on board. Bilateral lower extremities are Pancho wraped. Patient has been afebrile. No headache or dizziness or lightheadedness. Laboratory data showed sodium 139 potassium 3.6 chloride 95 bicarb is 36 BUN 13 and creatinine 0.97 and magnesium 1.5 which is being replaced. 03/25/2021 Patient is currently sitting in the chair comfortably. Patient is still having bilateral lower neck swelling and bibasilar crackles in the lung exam. Continued on IV Lasix. Bilateral lower extremities are Pancho wrapped. Denies any complaints of dizziness or lightheadedness Blood pressure is on the lower side. Patient did have a fall landing onto his knee knees yesterday afternoon. X-ray showed no acute fracture or dislocation. Pain is controlled now. Cardiology is on board. Laboratory data showed WBC 7.9 hemoglobin 14.4 and platelets 170 BUN 17 and creatinine 1.02 proBNP 1070 Review of systems: Constitutional: No reports of fatigue, fever, or chills, reports anxiety Cardiovascular: No reports of chest pain or palpitations Respiratory: reports continued shortness of breath and increased shortness of breath with minimal exertion GI: No reports of nausea, vomiting, or diarrhea, reports bloating : No reports of dysuria or retention Neurovascular: No reports of weakness or numbness All medications have been reviewed Objective - Vital Signs Vital signs: Vital Signs Temp 97.8 F 03/25/21 19:56 Pulse 67 03/25/21 20:00 Resp 18 03/25/21 20:00 BP 108/53 03/25/21 19:56 Pulse Ox 94 L 03/25/21 19:56 Intake & Output 03/25/21 03/25/21 03/26/21 06:59 18:59 06:59 Intake Total 660 Output Total 700 675 Balance -700 -15 Weight 115.7 kg Intake: Oral 660 Output: Urine 700 675 Other: Voiding Method Toilet Toilet Toilet Urinal # Voids 1 - Exam Patient is lying in the bed comfortably, no acute distress, awake alert and oriented.. HEENT: Normocephalic. Neck is supple. Pupils reactive. Nostrils clear. Oral cavity is moist. Neck reveals no JVD, carotid bruits, or thyromegaly. CHEST EXAMINATION: Trachea is central. Symmetrical expansion. Bibasilar crackles present. No wheezing or rhonchi. Nonlabored breathing.. CARDIAC: Normal S1, S2 with no gallops. No murmurs ABDOMEN: Soft. Bowel sounds normal. No organomegaly. No abdominal bruits. Extremities: 1+ edema. No clubbing or cyanosis Neurologically awake, alert, oriented x3 with well-coordinated movements. No focal deficits noted Skin: No rash or skin lesions. Psychiatric: Coperative. Nonsuicidal Musculoskeletal: No joint swelling or deformity. Normal range of motion. - Labs CBC & Chem 7: 03/25/21 08:58 03/25/21 08:58 Labs: Abnormal Lab Results - Last 24 Hours (Table) 03/25/21 03/25/21 Range/Units 08:58 08:58 MCV 101.8 H (80.0-100.0) fL Chloride 95 L (98-107) mmol/L Carbon Dioxide 36 H (22-30) mmol/L Glucose 164 H (74-99) mg/dL Assessment and Plan Assessment: Persistent atrial fibrillation with rapid ventricular rate Acute on Chronic CHF with diastolic dysfunction Severe hypokalemia and hypomagnesemia Coronary artery disease with history of stent placement on 08/25/2020 History of CABG History of CVA/TIA with mild residual weakness and right peripheral vision changes COPD on home oxygen 3 L via nasal cannula Hearing disorder/deafness Hypertension Hyperlipidemia History of RI Previous history of smoking Alcohol use Bilateral lower extremity peripheral neuropathy DVT prophylaxis. Full code Plan: Patient will continue on telemetry monitoring. Home medications have been resumed and patient continues on Xarelto and will continue his other medications. Patient was taking oral Lasix and c/w IV Lasix and monitor closely. Patient continues on his baseline of 3 L via nasal cannula and will continue with breathing inhalational treatments as well. Patient underwent 2-D echo showing mild concentric left ventricular hypertrophy with overall LV systolic function is mild to moderately impaired with an EF of 40-45% with some moderate mitral and tricuspid regurgitation present along with severe pulmonary hypertension noted. Cardiology is following closely. Continue to replace electrolytes Patient has extensive bilateral lower extremity pitting edema noted in recommend Pancho wraps from the toes up to the knees and elevating lower e xtremities while at rest. Encouraged increased activity as tolerated. Due to multiple complex medical issues, prognosis is guarded. Time with Patient: Greater than 30
[2021-03-26] MEDS: IPRATROPIUM-ALBUTEROL 3 ML NEB INHALATION SCH ×2 (07:07→11:26)
[2021-03-26] MEDS: SYMBICORT 160-4.5 MCG INHALER INHALATION SCH (07:08)
[2021-03-26] MEDS: POTASSIUM CHLORIDE ER 20 MEQ TAB.ER PO SCH (08:45)
[2021-03-26] MEDS: PREGABALIN 100 MG CAP PO SCH ×2 (08:45→12:24)
[2021-03-26] MEDS: FUROSEMIDE 10 MG/ML 4 ML VIAL IV SCH (08:45)
[2021-03-26] MEDS: METOPROLOL SUCCINATE (ER) 100 MG TAB.ER.24H PO SCH (08:45)
[2021-03-26] MEDS: CLOPIDOGREL 75 MG TAB PO SCH (08:46)
[2021-03-26] MEDS: LOSARTAN 50 MG TAB PO SCH (08:46)
[2021-03-26] MEDS: ISOSORBIDE MONONITRATE ER 30 MG TAB.ER.24H PO SCH (08:46)
[2021-03-26] MEDS: PANTOPRAZOLE 40 MG TABLET PO SCH (08:46)
[2021-03-26] MEDS: RIVAROXABAN 20 MG TAB PO SCH (08:46)
[2021-03-26 08:59] LABS: African American GFR (CKD) >90 (>60 ml/min/1.73 sqM); Anion Gap 10 mmol/L; Blood Urea Nitrogen 16 mg/dL (9-20); Calcium 8.6 mg/dL (8.4-10.2); Carbon Dioxide 33 mmol/L (22-30); Chloride 93 mmol/L (98-107); Glucose 134 mg/dL (74-99); Magnesium 1.8 mg/dL (1.6-2.3); Non-African American GFR(CKD) 83 (>60 ml/min/1.73 sqM); Potassium 3.3 mmol/L (3.5-5.1); Sodium 136 mmol/L (137-145)
[2021-03-26] MEDS ORDERED: POTASSIUM CHLORIDE ER 20 MEQ TAB.ER PO STA (09:23)
[2021-03-26] MEDS ORDERED: MAGNESIUM OXIDE 400 MG TAB PO SCH (09:30)
[2021-03-26 09:57] VITALS: TEMP 97.5
[2021-03-26 12:38] VITALS: BP 97/59; PULSE 82
--- NOTE | 2021-03-26 15:51 | P.PN ---
Subjective This is a 75-year-old male with a past medical history significant for recent diagnosis of atrial fibrillation in January 2021 on Xarelto, coronary artery disease s/p CABG and PCI, COPD, CVA/TIA, hypertension, hyperlipidemia, and GERD. Patient follows in the office with Dr. Cruz. We have been asked to see the patient in consultation for atrial fibrillation with rapid ventricular response. Patient seen and examined at bedside, no acute distress. He seen at the bedside chair. His lower extremity edema and shortness of breath has significantly improved. He is feeling much better. He continues to be in atrial fibrillation with controlled ventricular rates. He has had 1.2 urine output over the past 24 hours. He's currently still maintained on IV Lasix. His EF 40-45%. He denies any chest pain, shortness of breath, lightheadedness, dizziness. GENERAL: Well-appearing, well-nourished and in no acute distress. NECK: Supple without JVD or thyromegaly. LUNGS: Breath sounds diminished to auscultation bilaterally. Respiration equal and unlabored. No wheezes, rales or rhonchi. HEART: Irregular rate and rhythm without murmurs, rubs or gallops. S1 and S2 heard. EXTREMITIES: Normal range of motion. 1+ pittin bilateral lower extremity edema No clubbing or cyanosis. Peripheral pulses intact. ASSESSMENT Persistent atrial fibrillation with rapid ventricular response on Xarelto Acute systolic heart failure exacerbation NYHA Class III Hypokalemia Hypomagnesemia Coronary artery disease, status post CABG 3 in 2004, and PCI to distal and ostial right coronary artery in 2019, PCI to LAD in 2018, and PCI to ostium of RCA on 08/26/2020 History of COPD History of TIA Hypertension Hyperlipidemia GERD PLAN Transition to by mouth Lasix 40 mg twice a day From cardiology perspective patient appears to be stable for discharge. Continue statin, Imdur, Plavix, losartan, metoprolol succinate and Xarelto. Patient to follow-up in the office with Dr. Cruz at his scheduled appointment on 04/10. Nurse Practitioner note has been reviewed, I agree with a documented findings and plan of care. Patient was seen and examined. Objective - Vital Signs Vital signs: Vital Signs Temp 97.5 F L 03/26/21 08:00 Pulse 82 03/26/21 12:00 Resp 18 03/26/21 12:00 BP 97/59 03/26/21 12:00 Pulse Ox 95 03/26/21 12:00 Intake & Output 03/25/21 03/26/21 03/26/21 18:59 06:59 18:59 Intake Total 660 660 Output Total 425 017 3743 Balance -15 -600 -415 Weight 115.2 kg Intake: Oral 660 660 Output: Urine 638 832 7962 Other: Voiding Method Toilet Toilet Urinal - Labs CBC & Chem 7: 03/25/21 08:58 03/26/21 07:51 Labs: Abnormal Lab Results - Last 24 Hours (Table) 03/26/21 Range/Units 07:51 Sodium 136 L (137-145) mmol/L Potassium 3.3 L (3.5-5.1) mmol/L Chloride 93 L (98-107) mmol/L Carbon Dioxide 33 H (22-30) mmol/L Glucose 134 H (74-99) mg/dL
[2021-03-26] MEDS ORDERED: FUROSEMIDE 40 MG TAB PO SCH (16:00)
--- NOTE | 2021-03-27 12:46 | P.DS ---
Providers Date of admission: 03/22/21 15:12 Expected date of discharge: 03/26/21 Attending physician: Kerwin Turner Consults: 03/22/21 15:22 Consult Physician Urgent Consulting Provider: [facility] Reason/Comments: New onset A. fib Do you want consulting provider notified?: Yes Primary care physician: [facility] Hospital Course: Final diagnosis Persistent atrial fibrillation with rapid ventricular rate Acute on Chronic CHF with diastolic dysfunction as well as systolic dysfunction with an EF of 40-45% on echo from 03/23/2021 Severe hypokalemia and hypomagnesemia Coronary artery disease with history of stent placement on 08/25/2020 History of CABG History of CVA/TIA with mild residual weakness and right peripheral vision changes COPD on home oxygen 3 L via nasal cannula Hearing disorder/deafness Hypertension Hyperlipidemia History of AR Previous history of smoking Alcohol use Bilateral lower extremity peripheral neuropathy DVT prophylaxis. Full code Discharge disposition Patient is being discharged in a stable condition with guarded prognosis to home. Patient will follow-up with [facility] upon discharge. Patient will need to follow-up with cardiology Dr. Cruz in the outpatient setting as scheduled. Patient will continue on Lasix 40 mg twice daily upon discharge. Total time taken is greater than 35 minutes. Hospital course Persistent atrial fibrillation Acute CHF Patient is a 75-year-old male with a known history of coronary artery disease status post CABG, stent placement on 08/25/2020, chronic CHF, history of CVA/TIA with residual right-sided weakness and right eye peripheral vision changes,, COPD on oxygen at 3 L via nasal cannula, GERD, hearing disorder/deafness, hypertension, hyperlipidemia, history of AR, previous history of smoking and daily alcohol use and bilateral peripheral neuropathy and other multiple medical problems presents to ER from [facility] due to complaints of shortness of breath and new onset atrial fibrillation. Patient states that [facility] [place] due to shortness of breath and increased swelling of the bilateral ankles for about a week. Patient had EKG in the office and was found to have atrial fibrillation with heart rate in 130s. Patient was sent to ER for cardiology evaluation. Otherwise patient denies any complaints of chest pain. Denies any palpitations. No dizziness or lightheadedness. No cough or sputum production. Denies any recent illnesses. No fever no chills. Patient states that he was recently started on Lasix about 2 weeks ago. Chest x-ray showed chronic emphysematous and pulmonary fibrotic changes and cardiomegaly without new acute pulmonary process. EKG showed atrial fibrillation. Ventricular rate 111 Laboratory data showed WBC 8.1 hemoglobin 13.7 and platelets 185 INR 1.4 Sodium 140 potassium 2.9 chloride 99 BUN 12 and creatinine 0.86 calcium 8.2 magnesium 1.0 Denies any history of atrial fibrillation. Somewhat poor historian. Does not know why he is on Xarelto. Patient was discharged on aspirin and Plavix as per discharge summary on 09/29/2020. 03/23/2021 Patient is seen and evaluated in follow-up continues to be dyspneic and currently maintained 3 L of oxygen via nasal cannula. Patient states he does wear oxygen in the outpatient setting. Patient also has breathing inhalational treatments and was maintained on oral Lasix. Patient has significant bilateral lower extremity swelling noted with 2+ pitting edema in legs are dependent currently. Instructed the patient to elevate lower extremities and also ordered Pancho wraps from toes up to the knees and again instructed the patient to elevate extremities while sitting in the chair. Patient also has an extensive history of drinking and most recent drink was 2 days ago before hospitalization and will monitor closely for any signs of withdrawal. Patient is extremely anxious and will add low-dose Xanax and monitor closely. Patient continues to have shortness of breath and will encourage to increase activity as tolerated. 03/24/2021 Patient is currently sitting on the side of the bed. Bilateral lower activity swelling is improving slowly. No complaints of chest pain or worsening shortness of breath. Continue on Lasix 40 mg every 8 hourly. Cardiology is on board. Bilateral lower extremities are Pancho wraped. Patient has been afebrile. No headache or dizziness or lightheadedness. Laboratory data showed sodium 139 potassium 3.6 chloride 95 bicarb is 36 BUN 13 and creatinine 0.97 and magnesium 1.5 which is being replaced. 03/25/2021 Patient is currently sitting in the chair comfortably. Patient is still having bilateral lower neck swelling and bibasilar crackles in the lung exam. Continued on IV Lasix. Bilateral lower extremities are Pancho wrapped. Denies any complaints of dizziness or lightheadedness Blood pressure is on the lower side. Patient did have a fall landing onto his knee knees yesterday afternoon. X-ray showed no acute fracture or dislocation. Pain is controlled now. Cardiology is on board. Laboratory data showed WBC 7.9 hemoglobin 14.4 and platelets 170 BUN 17 and creatinine 1.02 proBNP 1070 03/26/2021 Patient is seen in follow-up no acute overnight issues. Patient being transitioned oral Lasix 40 mg twice daily and he was normally taking it once daily although given his continued lower extremity swelling cardiology recommending continue with twice daily and close outpatient follow-up with cardiology in one week. Encourage the patient to continue using Pancho wraps or compression stockings to bilateral lower extremities and elevating while at rest. Discussed with the patient extensively about refraining from any alcohol intake and take medications as prescribed. Patient does use oxygen in the outpatient setting and will continue on discharge. Patient also encouraged to follow-up with primary care provider and recommend close outpatient follow-up with repeat labs to monitor kidney functions and electrolytes. Patient had continued low magnesium and started on low magnesium supplement and recommend repeat labs in a few days to monitor this. Currently no reports of chest pain, worsening shortness of breath, or palpitations. Patient is afebrile. No reports of nausea or vomiting and patient is tolerating diet. Patient will be discharged home today. Patient is sitting up in the chair comfortably, no acute distress, awake alert and oriented. HEENT: Normocephalic. Neck is supple. Pupils reactive. Nostrils clear. Oral cavity is moist. Neck reveals no JVD, carotid bruits, or thyromegaly. CHEST EXAMINATION: Trachea is central. Symmetrical expansion. Lung beckham clear to auscultation and percussion. CARDIAC: Normal S1, S2 with no gallops. No murmurs ABDOMEN: Soft. Bowel sounds normal. No organomegaly. No abdominal bruits. Extremities: Mild bilateral lower extremity edema although significantly improved from admission with Pancho wraps noted. No clubbing or cyanosis Neurologically awake, alert, oriented x3 with well-coordinated movements. No gross focal deficits noted Skin: No rash or skin lesions. Psychiatric: Cooperative. Non-suicidal Musculoskeletal: No joint swelling or deformity. Please refer to medication reconciliation sheet for a list of medications. Patient Condition at Discharge: Stable Plan - Discharge Summary Discharge Rx Participant: No New Discharge Prescriptions: New Magnesium Oxide [Mag-Ox] 400 mg PO BID 30 Days #60 tab Acetaminophen Tab [Tylenol] 650 mg PO Q6HR PRN tab PRN Reason: Mild Pain Or Fever > 100.5 Continue Budesonide-Formot 160-4.5 Mcg [Symbicort 160-4.5 Mcg Inhaler] 2 puff INHALATION RT-BID Pravastatin Sodium [Pravachol] 80 mg PO HS Loratadine [Claritin] 10 mg PO DAILY PRN PRN Reason: Allergy Symptoms Pregabalin [Lyrica] 200 mg PO BID Montelukast [Singulair] 10 mg PO HS Isosorbide Mononitrate ER [Imdur] 30 mg PO DAILY Clopidogrel [Plavix] 75 mg PO DAILY #30 tab Pregabalin [Lyrica] 100 mg PO DAILY@1200 Omeprazole 40 mg PO BID Urea 20% Cream 1 applic TOPICAL DAILY Ipratropium-Albuterol Nebulize [Duoneb 0.5 mg-3 mg/3 ml Soln] 3 ml INHALATION RT-QID #120 ml Albuterol Inhaler [Ventolin Hfa Inhaler] 2 puff INHALATION RT-QID PRN PRN Reason: Shortness Of Breath Losartan [Cozaar] 50 mg PO DAILY Metoprolol Succinate (ER) [Toprol XL] 100 mg PO DAILY Potassium Chloride [Klor-Con 20] 20 meq PO DAILY Rivaroxaban [Xarelto] 20 mg PO DAILY Amitriptyline HCl [Elavil] 10 mg PO HS Tiotropium 18 Mcg/Puff [Spiriva] 1 cap INHALATION RT-DAILY Nitroglycerin Sl Tabs [Nitrostat] 0.4 mg SL Q5M PRN PRN Reason: Chest Pain Changed Furosemide [Lasix] 40 mg PO BID 30 Days #60 tab Discharge Medication List Budesonide-Formot 160-4.5 Mcg [Symbicort 160-4.5 Mcg Inhaler] 2 puff INHALATION RT-BID 12/18/13 [History] Pravastatin Sodium [Pravachol] 80 mg PO HS 12/18/13 [History] Loratadine [Claritin] 10 mg PO DAILY PRN 09/19/15 [History] Isosorbide Mononitrate ER [Imdur] 30 mg PO DAILY 06/08/19 [History] Montelukast [Singulair] 10 mg PO HS 06/08/19 [History] Pregabalin [Lyrica] 200 mg PO BID 06/08/19 [History] Clopidogrel [Plavix] 75 mg PO DAILY #30 tab 06/11/19 [Rx] Omeprazole 40 mg PO BID 04/07/20 [History] Pregabalin [Lyrica] 100 mg PO DAILY@1200 04/07/20 [History] Urea 20% Cream 1 applic TOPICAL DAILY 04/07/20 [History] Ipratropium-Albuterol Nebulize [Duoneb 0.5 mg-3 mg/3 ml Soln] 3 ml INHALATION RT-QID #120 ml 04/10/20 [Rx] Albuterol Inhaler [Ventolin Hfa Inhaler] 2 puff INHALATION RT-QID PRN 08/25/20 [History] Losartan [Cozaar] 50 mg PO DAILY 08/25/20 [History] Metoprolol Succinate (ER) [Toprol XL] 100 mg PO DAILY 08/25/20 [History] Potassium Chloride [Klor-Con 20] 20 meq PO DAILY 09/28/20 [History] Amitriptyline HCl [Elavil] 10 mg PO HS 03/22/21 [History] Nitroglycerin Sl Tabs [Nitrostat] 0.4 mg SL Q5M PRN 03/22/21 [History] Rivaroxaban [Xarelto] 20 mg PO DAILY 03/22/21 [History] Tiotropium 18 Mcg/Puff [Spiriva] 1 cap INHALATION RT-DAILY 03/22/21 [History] Acetaminophen Tab [Tylenol] 650 mg PO Q6HR PRN tab 03/26/21 [Rx] Furosemide [Lasix] 40 mg PO BID 30 Days #60 tab 03/26/21 [Rx] Magnesium Oxide [Mag-Ox] 400 mg PO BID 30 Days #60 tab 03/26/21 [Rx] Follow up Appointment(s)/Referral(s): Guru Cruz MD [STAFF PHYSICIAN] - 04/10/21 2:30 pm [facility]Clinic [Primary Care Provider] - 04/12/21 3:00 pm Activity/Diet/Wound Care/Special Instructions: Activity Limited until follow-up Follow-up with primary care provider on discharge Continue with breathing inhalational treatments and oxygen support Follow-up with cardiology outpatient Continue Lasix 40 mg twice daily Continue to take potassium daily along with potassium rich diet Avoid alcohol intake Continue to elevate lower extremities while at rest and continue with Pancho wraps from the toes up to the knees for swelling Discharge Disposition: HOME SELF-CARE
== END 2021-03-26 14:40 | disposition home or self-care (01) | DRG 308 ==
LOC: EC 12:16 → 3SCARD 15:12
PROVIDERS: ADMIT Internal Medicine; ATTEND Internal Medicine
DX: I48.19 Other persistent atrial fibrillation (principal); I50.43 Acute on chronic combined systolic (congestive) and diastolic (congestive) heart failure; I69.351 Hemiplegia and hemiparesis following cerebral infarction affecting right dominant side; I11.0 Hypertensive heart disease with heart failure; E78.5 Hyperlipidemia, unspecified; E83.42 Hypomagnesemia; E87.6 Hypokalemia; G62.9 Polyneuropathy, unspecified; H91.90 Unspecified hearing loss, unspecified ear; Z20.822 Contact with and (suspected) exposure to COVID-19; I25.10 Atherosclerotic heart disease of native coronary artery without angina pectoris; I25.2 Old myocardial infarction; J44.9 Chronic obstructive pulmonary disease, unspecified; K21.9 Gastro-esophageal reflux disease without esophagitis; Z95.1 Presence of aortocoronary bypass graft; I08.1 Rheumatic disorders of both mitral and tricuspid valves; K44.9 Diaphragmatic hernia without obstruction or gangrene; Z79.01 Long term (current) use of anticoagulants; Z79.02 Long term (current) use of antithrombotics/antiplatelets; Z79.51 Long term (current) use of inhaled steroids; Z79.899 Other long term (current) drug therapy; Z82.49 Family history of ischemic heart disease and other diseases of the circulatory system; Z86.79 Personal history of other diseases of the circulatory system; Z87.891 Personal history of nicotine dependence; Z95.5 Presence of coronary angioplasty implant and graft; Z96.1 Presence of intraocular lens; Z99.81 Dependence on supplemental oxygen
CPT/HCPCS: 36415; 71046; 80048; 80053; 81003; 83605; 83735; 83880; 84484; 85025; 85610; 85730; 87635; 93005; 93306; 94640; 94760; 99285

== ENCOUNTER 2021-04-27 08:36 | Inpatient (IN) | payer OTHER, MEDICARE ==
[2021-04-27 09:21] LABS: Basophils # (A) 0.1 k/uL (0-0.2); Basophils % (A) 1 %; Eosinophils # (A) 0.3 k/uL (0-0.7); Eosinophils % (A) 3 %; HCT 42.5 % (39.0-53.0); HGB 14.4 gm/dL (13.0-17.5); Lymphocytes # (A) 1.3 k/uL (1.0-4.8); Lymphocytes % (A) 14 %; MCH 32.8 pg (25.0-35.0); MCHC 33.8 g/dL (31.0-37.0); MCV 97.1 fL (80.0-100.0); Mean Platelet Volume 9.8; Monocytes # (A) 0.5 k/uL (0-1.0); Monocytes % (A) 5 %; Neutrophils # (A) 7.5 k/uL (1.3-7.7); Neutrophils % (A) 76 %; Platelet Count 201 k/uL (150-450); RBC 4.37 m/uL (4.30-5.90); RDW 12.5 % (11.5-15.5); WBC 9.8 k/uL (3.8-10.6)
[2021-04-27 09:40] LABS: Albumin 3.9 g/dL (3.5-5.0); Calcium 9.2 mg/dL (8.4-10.2); Magnesium 1.9 mg/dL (1.6-2.3); Total Bilirubin 0.8 mg/dL (0.2-1.3); Total Protein 6.7 g/dL (6.3-8.2)
[2021-04-27 10:04] LABS: Potassium 2.1 mmol/L (3.5-5.1)
[2021-04-27] MEDS ORDERED: NALOXONE 0.4 MG/ML 1 ML VIAL IV PRN (10:26)
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
[2021-04-27] MEDS ORDERED: Potassium Replacement Protocol 1 EACH MISC MISCELLANE PRN ×2 (10:28→16:29)
[2021-04-27] MEDS: POTASSIUM CHLORIDE ER 20 MEQ TAB.ER PO SCH ×4 (11:37→21:25)
[2021-04-27] MEDS: POTASSIUM CHLORIDE 10 MEQ in WATER FOR INJECTION 1 100ML.BAG IVPB SCH ×4 (12:06→21:31)
[2021-04-27] MEDS ORDERED: ALBUTEROL NEBULIZED 2.5 MG/3 ML INHALATION PRN (16:29)
[2021-04-27] MEDS ORDERED: Magnesium Replacement Protocol 1 EACH MISC MISCELLANE PRN (16:29)
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
[2021-04-27] MEDS: FUROSEMIDE 40 MG TAB PO SCH (18:11)
[2021-04-27 18:52] LABS: Potassium 2.4 mmol/L (3.5-5.1)
[2021-04-27] MEDS: SYMBICORT 160-4.5 MCG INHALER INHALATION SCH (19:46)
[2021-04-27] MEDS: IPRATROPIUM-ALBUTEROL 3 ML NEB INHALATION SCH (19:46)
[2021-04-27] MEDS: PANTOPRAZOLE 40 MG TABLET PO SCH (21:23)
[2021-04-27] MEDS: MAGNESIUM OXIDE 400 MG TAB PO SCH (21:23)
[2021-04-27] MEDS: PREGABALIN 100 MG CAP PO SCH (21:24)
[2021-04-27] MEDS: AMITRIPTYLINE HCL 10 MG TAB PO SCH (21:25)
[2021-04-27] MEDS: MONTELUKAST 10 MG TAB PO SCH (21:25)
[2021-04-27] MEDS: PRAVASTATIN SODIUM 80 MG TAB PO SCH (21:25)
[2021-04-28] MEDS: POTASSIUM CHLORIDE 10 MEQ in WATER FOR INJECTION 1 100ML.BAG IVPB SCH ×2 (00:58→04:14)
[2021-04-28] MEDS ORDERED: POTASSIUM CHLORIDE 10 MEQ in WATER FOR INJECTION 1 100ML.BAG IVPB SCH (03:30)
[2021-04-28] MEDS: SYMBICORT 160-4.5 MCG INHALER INHALATION SCH ×2 (07:14→20:00)
[2021-04-28] MEDS: IPRATROPIUM-ALBUTEROL 3 ML NEB INHALATION SCH ×4 (07:14→20:00)
[2021-04-28] MEDS ORDERED: NON FORMULARY DRUG (Tiotropium 18 Mcg/Puff 1 PUFF Each) INHALATION SCH (08:00)
[2021-04-28] MEDS: PANTOPRAZOLE 40 MG TABLET PO SCH ×2 (08:58→20:39)
[2021-04-28] MEDS: ISOSORBIDE MONONITRATE ER 30 MG TAB.ER.24H PO SCH (08:58)
[2021-04-28] MEDS: MAGNESIUM OXIDE 400 MG TAB PO SCH ×2 (08:58→20:39)
[2021-04-28] MEDS: RIVAROXABAN 20 MG TAB PO SCH (08:58)
[2021-04-28] MEDS: METOPROLOL SUCCINATE (ER) 100 MG TAB.ER.24H PO SCH (08:58)
[2021-04-28] MEDS: FUROSEMIDE 40 MG TAB PO SCH ×2 (08:58→16:22)
[2021-04-28] MEDS: LOSARTAN 50 MG TAB PO SCH (08:58)
[2021-04-28] MEDS: POTASSIUM CHLORIDE ER 20 MEQ TAB.ER PO SCH ×9 (08:58→22:53)
[2021-04-28] MEDS: CLOPIDOGREL 75 MG TAB PO SCH (08:58)
[2021-04-28] MEDS: PREGABALIN 100 MG CAP PO SCH ×3 (08:59→20:39)
[2021-04-28 09:10] LABS: Basophils # (A) 0.05 X 10*3/uL (0.00-0.10); Basophils % (A) 0.6 %; Eosinophils # (A) 0.24 X 10*3/uL (0.04-0.35); Eosinophils % (A) 2.7 %; HCT 41.9 % (39.6-50.0); HGB 13.6 g/dL (13.0-17.0); Lymphocytes # (A) 1.34 X 10*3/uL (0.90-5.00); Lymphocytes % (A) 15.1 %; MCH 31.6 pg (27.0-32.0); MCHC 32.5 g/dL (32.0-37.0); MCV 97.2 fL (80.0-97.0); Mean Platelet Volume 12.6 fL (9.5-12.2); Monocytes # (A) 0.63 X 10*3/uL (0.20-1.00); Monocytes % (A) 7.1 %; Neutrophils # (A) 6.58 X 10*3/uL (1.80-7.70); Neutrophils % (A) 74.2 %; Platelet Count 213 X 10*3/uL (140-440); RBC 4.31 X 10*6/uL (4.40-5.60); RDW 12.5 % (11.5-14.5); WBC 8.87 X 10*3/uL (4.50-10.00)
[2021-04-28 09:38] LABS: Magnesium 1.9 mg/dL (1.5-2.4)
[2021-04-28 10:53] LABS: African American GFR (CKD) 99.5 (60.0-200.0); Anion Gap 15.7 mmol/L (4.00-12.00); BUN/Creat Ratio 27.29 Ratio (12.00-20.00); Blood Urea Nitrogen 23.2 mg/dL (9.0-27.0); Calcium 9.2 mg/dL (8.7-10.3); Carbon Dioxide 32.8 mmol/L (21.6-31.8); Non-African American GFR(CKD) 85.8 (60.0-200.0); Potassium 2.5 mmol/L (3.5-5.5)
[2021-04-28] MEDS ORDERED: Potassium Replacement Protocol 1 EACH MISC MISCELLANE PRN ×2 (11:33→15:58)
[2021-04-28 17:33] LABS: Potassium 3.1 mmol/L (3.5-5.1)
[2021-04-28] MEDS ORDERED: bisacodyL 10 MG SUPP RECTAL STA (17:52)
[2021-04-28] MEDS ORDERED: POTASSIUM CHLORIDE ER 20 MEQ TAB.ER PO SCH (20:00)
[2021-04-28] MEDS: AMITRIPTYLINE HCL 10 MG TAB PO SCH (20:38)
[2021-04-28] MEDS: PRAVASTATIN SODIUM 80 MG TAB PO SCH (20:38)
[2021-04-28] MEDS: MONTELUKAST 10 MG TAB PO SCH (20:39)
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
[2021-04-29] MEDS: POTASSIUM CHLORIDE ER 20 MEQ TAB.ER PO SCH ×7 (00:35→21:49)
[2021-04-29] MEDS: IPRATROPIUM-ALBUTEROL 3 ML NEB INHALATION SCH ×4 (07:32→19:54)
[2021-04-29] MEDS: SYMBICORT 160-4.5 MCG INHALER INHALATION SCH ×2 (07:32→19:54)
[2021-04-29] MEDS: PANTOPRAZOLE 40 MG TABLET PO SCH ×2 (09:13→20:17)
[2021-04-29] MEDS: bisacodyL 5 MG TABLET.DR PO SCH (09:13)
[2021-04-29] MEDS: PREGABALIN 100 MG CAP PO SCH ×3 (09:13→20:18)
[2021-04-29] MEDS: CLOPIDOGREL 75 MG TAB PO SCH (09:14)
[2021-04-29] MEDS: ISOSORBIDE MONONITRATE ER 30 MG TAB.ER.24H PO SCH (09:14)
[2021-04-29] MEDS: METOPROLOL SUCCINATE (ER) 100 MG TAB.ER.24H PO SCH (09:14)
[2021-04-29] MEDS: RIVAROXABAN 20 MG TAB PO SCH (09:14)
[2021-04-29] MEDS: FUROSEMIDE 40 MG TAB PO SCH ×2 (09:14→16:14)
[2021-04-29] MEDS: LOSARTAN 50 MG TAB PO SCH (09:14)
[2021-04-29] MEDS: MAGNESIUM OXIDE 400 MG TAB PO SCH ×2 (09:14→20:18)
[2021-04-29 09:41] LABS: Basophils # (A) 0.05 X 10*3/uL (0.00-0.10); Basophils % (A) 0.6 %; Eosinophils # (A) 0.29 X 10*3/uL (0.04-0.35); Eosinophils % (A) 3.3 %; HCT 40.6 % (39.6-50.0); Lymphocytes # (A) 1.35 X 10*3/uL (0.90-5.00); Lymphocytes % (A) 15.2 %; MCH 32.3 pg (27.0-32.0); MCV 100.7 fL (80.0-97.0); Mean Platelet Volume 12.6 fL (9.5-12.2); Monocytes # (A) 0.72 X 10*3/uL (0.20-1.00); Monocytes % (A) 8.1 %; Neutrophils # (A) 6.47 X 10*3/uL (1.80-7.70); Neutrophils % (A) 72.5 %; Platelet Count 214 X 10*3/uL (140-440); RBC 4.03 X 10*6/uL (4.40-5.60); RDW 12.8 % (11.5-14.5); WBC 8.91 X 10*3/uL (4.50-10.00)
[2021-04-29 10:49] LABS: African American GFR (CKD) 83.5 (60.0-200.0); Anion Gap 12.7 mmol/L (4.00-12.00); BUN/Creat Ratio 23.33 Ratio (12.00-20.00); Blood Urea Nitrogen 23.8 mg/dL (9.0-27.0); Carbon Dioxide 32.9 mmol/L (21.6-31.8); Non-African American GFR(CKD) 72.1 (60.0-200.0); Potassium 3.3 mmol/L (3.5-5.5)
[2021-04-29] MEDS ORDERED: Potassium Replacement Protocol 1 EACH MISC MISCELLANE PRN (10:55)
[2021-04-29 18:40] LABS: Potassium 4.2 mmol/L (3.5-5.1)
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
[2021-04-29] MEDS: PRAVASTATIN SODIUM 80 MG TAB PO SCH (20:17)
[2021-04-29] MEDS: AMITRIPTYLINE HCL 10 MG TAB PO SCH (20:17)
[2021-04-29] MEDS: MONTELUKAST 10 MG TAB PO SCH (20:18)
[2021-04-29 20:59] VITALS: RESP 16
[2021-04-29] MEDS: ACETAMINOPHEN TAB 325 MG TAB PO PRN (21:52)
[2021-04-30] MEDS: POTASSIUM CHLORIDE ER 20 MEQ TAB.ER PO SCH ×2 (00:20→07:56)
[2021-04-30] MEDS: SYMBICORT 160-4.5 MCG INHALER INHALATION SCH (07:24)
[2021-04-30] MEDS: IPRATROPIUM-ALBUTEROL 3 ML NEB INHALATION SCH ×3 (07:24→15:26)
[2021-04-30] MEDS: ACETAMINOPHEN TAB 325 MG TAB PO PRN (07:48)
[2021-04-30] MEDS: ISOSORBIDE MONONITRATE ER 30 MG TAB.ER.24H PO SCH (07:55)
[2021-04-30] MEDS: CLOPIDOGREL 75 MG TAB PO SCH (07:55)
[2021-04-30] MEDS: bisacodyL 5 MG TABLET.DR PO SCH (07:55)
[2021-04-30] MEDS: PREGABALIN 100 MG CAP PO SCH ×2 (07:55→12:55)
[2021-04-30] MEDS: METOPROLOL SUCCINATE (ER) 100 MG TAB.ER.24H PO SCH (07:55)
[2021-04-30] MEDS: PANTOPRAZOLE 40 MG TABLET PO SCH (07:55)
[2021-04-30] MEDS: RIVAROXABAN 20 MG TAB PO SCH (07:55)
[2021-04-30] MEDS: FUROSEMIDE 40 MG TAB PO SCH (07:55)
[2021-04-30] MEDS: LOSARTAN 50 MG TAB PO SCH (07:56)
[2021-04-30] MEDS: MAGNESIUM OXIDE 400 MG TAB PO SCH (07:56)
[2021-04-30 08:50] VITALS: TEMP 97.6
[2021-04-30 09:36] LABS: African American GFR (CKD) 99.6 (60.0-200.0); BUN/Creat Ratio 26.77 Ratio (12.00-20.00); Blood Urea Nitrogen 22.7 mg/dL (9.0-27.0); Calcium 9.3 mg/dL (8.7-10.3); Carbon Dioxide 27.5 mmol/L (21.6-31.8); Magnesium 1.8 mg/dL (1.5-2.4); Non-African American GFR(CKD) 85.9 (60.0-200.0); Potassium 4.2 mmol/L (3.5-5.5)
[2021-04-30 15:56] VITALS: BP 117/76; PULSE 75
--- NOTE | 2021-05-01 00:22 | P.DS ---
Providers Date of admission: 04/28/21 08:41 Attending physician: Beny Mcintosh MD Primary care physician: [facility] Hospital Course: Diagnoses: Severe hypokalemia on admission secondary to diverticulosis, resolved Paroxysmal atrial fibrillation with slow heart rate at 69, on examination. History of chronic CHF, unknown ejection fraction History of coronary artery disease History of COPD, not in active acute exacerbation History of CVA/TIA History of GERD Hypertension Hyperlipidemia Hospital course: This is a pleasant 75 years old male with past medical history of coronary artery disease, heart failure, COPD, CVA/TIA, GERD, hyperlipidemia, hyperten ever. Patient was referred by his collector of internal revenue Dr. Cruz to [facility] to check his potassium after he was started on Lasix 2 weeks prior, also patient was already started on metolazone one month earlier. Blood work came back severe hypokalemia at the [facility] and patient was referred to this facility with potassium 2.1 on admission. Diuretics were held and potassium corrected 4.2 yesterday and today. Magnesium 1.8 and patient is on oral replacement therapy Other than that the patient denies any symptoms. Patient states that he is at normal self and he wants to go home today. Chest pain or dyspnea. No headache or dizziness. No weakness or numbness. No abdominal pain or vomiting. No change in urine or bowel habits. No fever. No dysuria. Gait is normal patient was seen walk normally. Patient was instructed to stop taking Lasix and metolazone and to check his potassium with his PCP and collector of internal revenue in 1 week and he agrees. She was instructed with low salt diet and fluid restriction while he is off diuretics and he agrees. Problems and management plan were discussed with the patient and he verbalized understanding and acceptance Patient was found stable and can be discharged home however he needs follow-up as an outpatient. Patient was instructed to follow up with PCP in the [facility] within one week and patient agrees patient also was instructed to follow up with his collector of internal revenue Dr. Cruz in one week patient agrees to call and make his own appointment. Physical exam Gen: patient is a AAOx3, no distress CVS: S1-S2, RRR, no murmur Lungs: B/L CTA, no wheezing Abdomen: soft, no distention, no tenderness, positive bowel sounds Extremity: no leg edema or induration Gait: Normal Time spent more than 35 minutes Patient Condition at Discharge: Stable Plan - Discharge Summary New Discharge Prescriptions: Continue Budesonide-Formot 160-4.5 Mcg [Symbicort 160-4.5 Mcg Inhaler] 2 puff INHALAT ION RT-BID Pravastatin Sodium [Pravachol] 80 mg PO HS Pregabalin [Lyrica] 200 mg PO BID Montelukast [Singulair] 10 mg PO HS Isosorbide Mononitrate ER [Imdur] 30 mg PO DAILY Clopidogrel [Plavix] 75 mg PO DAILY #30 tab Pregabalin [Lyrica] 100 mg PO DAILY@1200 Omeprazole 40 mg PO BID Urea 20% Cream 1 applic TOPICAL DAILY Ipratropium-Albuterol Nebulize [Duoneb 0.5 mg-3 mg/3 ml Soln] 3 ml INHALATION RT-QID #120 ml Albuterol Inhaler [Ventolin Hfa Inhaler] 2 puff INHALATION RT-QID PRN PRN Reason: Shortness Of Breath Losartan [Cozaar] 50 mg PO DAILY Metoprolol Succinate (ER) [Toprol XL] 100 mg PO DAILY Rivaroxaban [Xarelto] 20 mg PO DAILY Amitriptyline HCl [Elavil] 10 mg PO HS Magnesium Oxide [Mag-Ox] 400 mg PO BID 30 Days #20 tab Tiotropium 18 Mcg/Puff [Spiriva] 1 cap INHALATION RT-DAILY Nitroglycerin Sl Tabs [Nitrostat] 0.4 mg SL Q5M PRN PRN Reason: Chest Pain Acetaminophen Tab [Tylenol] 650 mg PO Q6HR PRN tab PRN Reason: Mild Pain Or Fever > 100.5 Discontinued Potassium Chloride [Klor-Con 20] 20 meq PO DAILY Furosemide [Lasix] 40 mg PO BID 30 Days #60 tab Potassium Chloride [Klor-Con 20] 20 meq PO ONCE PRN PRN Reason: LOW POTASSIUM metOLazone [Zaroxolyn] 5 mg PO DAILY Discharge Medication List Budesonide-Formot 160-4.5 Mcg [Symbicort 160-4.5 Mcg Inhaler] 2 puff INHALATION RT-BID 12/18/13 [History] Pravastatin Sodium [Pravachol] 80 mg PO HS 12/18/13 [History] Isosorbide Mononitrate ER [Imdur] 30 mg PO DAILY 06/08/19 [History] Montelukast [Singulair] 10 mg PO HS 06/08/19 [History] Pregabalin [Lyrica] 200 mg PO BID 06/08/19 [History] Clopidogrel [Plavix] 75 mg PO DAILY #30 tab 06/11/19 [Rx] Omeprazole 40 mg PO BID 04/07/20 [History] Pregabalin [Lyrica] 100 mg PO DAILY@1200 04/07/20 [History] Urea 20% Cream 1 applic TOPICAL DAILY 04/07/20 [History] Ipratropium-Albuterol Nebulize [Duoneb 0.5 mg-3 mg/3 ml Soln] 3 ml INHALATION RT-QID #120 ml 04/10/20 [Rx] Albuterol Inhaler [Ventolin Hfa Inhaler] 2 puff INHALATION RT-QID PRN 08/25/20 [History] Losartan [Cozaar] 50 mg PO DAILY 08/25/20 [History] Metoprolol Succinate (ER) [Toprol XL] 100 mg PO DAILY 08/25/20 [History] Amitriptyline HCl [Elavil] 10 mg PO HS 03/22/21 [History] Nitroglycerin Sl Tabs [Nitrostat] 0.4 mg SL Q5M PRN 03/22/21 [History] Rivaroxaban [Xarelto] 20 mg PO DAILY 03/22/21 [History] Tiotropium 18 Mcg/Puff [Spiriva] 1 cap INHALATION RT-DAILY 03/22/21 [History] Acetaminophen Tab [Tylenol] 650 mg PO Q6HR PRN tab 03/26/21 [Rx] Magnesium Oxide [Mag-Ox] 400 mg PO BID 30 Days #20 tab 04/30/21 [Rx] Follow up Appointment(s)/Referral(s): Guru Cruz MD [STAFF PHYSICIAN] - 1 Week [facility] [Primary Care Provider] - 1-2 days Patient Instructions/Handouts: Hypokalemia (DC) Activity/Diet/Wound Care/Special Instructions: Heart healthy diet. Continue with fluid restriction 1200 mL per day Activity is restricted till you see your doctor Discharge Disposition: HOME SELF-CARE
== END 2021-04-30 16:17 | disposition home or self-care (01) | DRG 641 ==
LOC: EC 08:36 → 6NMEDSUR 10:43 → OBSVTOIN 04-28 08:41
PROVIDERS: ADMIT Internal Medicine; ATTEND Internal Medicine
DX: E87.6 Hypokalemia (principal); I48.19 Other persistent atrial fibrillation; I50.42 Chronic combined systolic (congestive) and diastolic (congestive) heart failure; J96.11 Chronic respiratory failure with hypoxia; K57.90 Diverticulosis of intestine, part unspecified, without perforation or abscess without bleeding; J44.9 Chronic obstructive pulmonary disease, unspecified; E87.5 Hyperkalemia; I11.0 Hypertensive heart disease with heart failure; E78.5 Hyperlipidemia, unspecified; I25.2 Old myocardial infarction; E83.42 Hypomagnesemia; Z20.822 Contact with and (suspected) exposure to COVID-19; K21.9 Gastro-esophageal reflux disease without esophagitis; H91.90 Unspecified hearing loss, unspecified ear; T50.2X5A Adverse effect of carbonic-anhydrase inhibitors, benzothiadiazides and other diuretics, initial encounter; I25.10 Atherosclerotic heart disease of native coronary artery without angina pectoris; Z87.891 Personal history of nicotine dependence; Z86.79 Personal history of other diseases of the circulatory system; X58.XXXA Exposure to other specified factors, initial encounter; Z79.01 Long term (current) use of anticoagulants; Z79.02 Long term (current) use of antithrombotics/antiplatelets; Z79.51 Long term (current) use of inhaled steroids; Z86.73 Personal history of transient ischemic attack (TIA), and cerebral infarction without residual deficits; Z87.01 Personal history of pneumonia (recurrent); Z95.1 Presence of aortocoronary bypass graft; Z95.5 Presence of coronary angioplasty implant and graft; Z96.1 Presence of intraocular lens; Z98.42 Cataract extraction status, left eye; Z98.41 Cataract extraction status, right eye; Z87.19 Personal history of other diseases of the digestive system; Z88.8 Allergy status to other drugs, medicaments and biological substances
CPT/HCPCS: 36415; 80048; 80051; 80053; 83735; 84132; 85025; 87635; 93005; 94640; 94760; 99285

== ENCOUNTER 2021-06-13 08:18 | Inpatient (IN) | payer OTHER, MEDICARE ==
[2021-06-13] MEDS ORDERED: IPRATROPIUM-ALBUTEROL 3 ML NEB INHALATION STA (08:49)
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
--- NOTE | 2021-06-13 09:10 | XR ---
EXAMINATION TYPE: XR chest 2V DATE OF EXAM: 06/13/2021 COMPARISON: 03/22/2021 HISTORY: Shortness of breath TECHNIQUE: Frontal and lateral views of the chest are obtained. FINDINGS: Scattered senescent parenchymal changes noted. Hyperinflation compatible with COPD. Again noted are e mphysematous changes as well as underlying fibrosis. Mild increased density at the lung bases could r eflect superimposed infiltrate. Correlate clinically. Right upper lobe parenchymal scarring. Heart size is stable. Mediastinal structures are stable and grossly unremarkable. No evidence for hilar prominence. Degenerative changes dorsal spine. IMPRESSION: 1. Again noted are emphysematous changes as well as underlying fibrosis. Mild increased density at th e lung bases could reflect superimposed infiltrate. Correlate clinically.
[2021-06-13 09:16] LABS: INR 1.4 (<1.2); Partial Thromboplastin Time 31.2 sec (22.0-30.0); Prothrombin Time 13.8 sec (9.0-12.0)
[2021-06-13 09:21] LABS: Potassium 3.9 mmol/L (3.5-5.1); Total Bilirubin 0.7 mg/dL (0.2-1.3); Total Protein 6.8 g/dL (6.3-8.2)
[2021-06-13 09:34] LABS: Basophils # (A) 0.1 k/uL (0-0.2); Basophils % (A) 1 %; Eosinophils # (A) 0.3 k/uL (0-0.7); Eosinophils % (A) 3 %; HCT 39.2 % (39.0-53.0); HGB 12.9 gm/dL (13.0-17.5); Lymphocytes # (A) 1.5 k/uL (1.0-4.8); Lymphocytes % (A) 13 %; MCHC 32.8 g/dL (31.0-37.0); MCV 94.3 fL (80.0-100.0); Mean Platelet Volume 9.3; Monocytes # (A) 0.5 k/uL (0-1.0); Monocytes % (A) 4 %; Neutrophils # (A) 8.9 k/uL (1.3-7.7); Neutrophils % (A) 79 %; Platelet Count 181 k/uL (150-450); RBC 4.15 m/uL (4.30-5.90); RDW 13.5 % (11.5-15.5); WBC 11.4 k/uL (3.8-10.6)
[2021-06-13] MEDS ORDERED: PIPERACILLIN-TAZOBACTAM 3.375 GM in SODIUM CHLORIDE 0.9% 100 ML IVPB STA (10:03)
[2021-06-13] MEDS ORDERED: methylPREDNISolone SOD SUCCI 125 MG/2 ML VIAL IV STA (10:05)
[2021-06-13 10:23] LABS: Appearance,Urine Clear (Clear); Bilirubin,Urine Negative (Negative); Blood,Urine Negative (Negative); Color,Urine Light Yellow; Glucose,Urine (UA) Negative (Negative); Ketones,Urine Negative (Negative); Leukocyte Esterase,Urine Negative (Negative); Nitrite,Urine Negative (Negative); Protein,Urine Negative (Negative); Specific Gravity,Urine 1.008 (1.001-1.035); Urobilinogen,Urine <2.0 mg/dL (<2.0)
[2021-06-13] MEDS ORDERED: ACETAMINOPHEN TAB 500 MG TAB PO STA (10:27)
[2021-06-13] MEDS ORDERED: KETOROLAC 30 MG/ML 1 ML VIAL IVP STA (10:27)
[2021-06-13] MEDS ORDERED: AZITHROMYCIN 500 MG in SODIUM CHLORIDE 0.9% 250 ML IVPB STA (10:29)
[2021-06-13] MEDS ORDERED: PNEUMONIA PROTOCOL UTILIZED 1 EACH MISC PO PRN (10:29)
[2021-06-13] MEDS: methylPREDNISolone SOD SUCCI 125 MG/2 ML VIAL IV SCH ×3 (12:39→23:23)
[2021-06-13] MEDS: PREGABALIN 100 MG CAP PO SCH ×2 (16:12→20:39)
[2021-06-13] MEDS: ALBUTEROL NEBULIZED 2.5 MG/3 ML INHALATION PRN (16:59)
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
[2021-06-13] MEDS ORDERED: PIPERACILLIN-TAZOBACTAM 3.375 GM in SODIUM CHLORIDE 0.9% 100 ML IVPB SCH (20:00)
[2021-06-13] MEDS: HYDROcodone/APAP 5-325MG 1 EACH TAB PO PRN (20:39)
[2021-06-13] MEDS ORDERED: AMITRIPTYLINE HCL 10 MG TAB PO SCH (21:00)
[2021-06-13] MEDS ORDERED: PRAVASTATIN SODIUM 80 MG TAB PO SCH (21:00)
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
[2021-06-14 02:48] VITALS: RESP 16
[2021-06-14] MEDS: HYDROcodone/APAP 5-325MG 1 EACH TAB PO PRN ×2 (05:12→14:10)
[2021-06-14] MEDS: methylPREDNISolone SOD SUCCI 125 MG/2 ML VIAL IV SCH ×2 (05:12→14:11)
[2021-06-14] MEDS: ALBUTEROL NEBULIZED 2.5 MG/3 ML INHALATION PRN ×2 (07:12→12:02)
[2021-06-14] MEDS: PREGABALIN 100 MG CAP PO SCH (08:13)
[2021-06-14] MEDS ORDERED: ISOSORBIDE MONONITRATE ER 30 MG TAB.ER.24H PO SCH (09:00)
[2021-06-14] MEDS ORDERED: RIVAROXABAN 20 MG TAB PO SCH (09:00)
[2021-06-14] MEDS ORDERED: METOPROLOL SUCCINATE (ER) 100 MG TAB.ER.24H PO SCH (09:00)
[2021-06-14] MEDS ORDERED: LOSARTAN 50 MG TAB PO SCH (09:00)
[2021-06-14] MEDS ORDERED: AZITHROMYCIN 500 MG in SODIUM CHLORIDE 0.9% 250 ML IVPB SCH (09:00)
[2021-06-14] MEDS ORDERED: CLOPIDOGREL 75 MG TAB PO SCH (09:00)
[2021-06-14] MEDS ORDERED: SPIRONOLACTONE 25 MG TAB PO SCH (09:00)
--- NOTE | 2021-06-14 10:46 | XR ---
EXAMINATION TYPE: XR chest 2V DATE OF EXAM: 06/14/2021 COMPARISON: 06/13/2021 TECHNIQUE: PA and lateral views submitted. HISTORY: Fever FINDINGS: A patchy bilateral infiltrates interstitial prominence with small effusions. Heart is enlarged and un changed. Subsegmental bilateral infiltrates. Biapical pleural thickening. Underlying hyperinflation c orrelate for COPD. IMPRESSION: 1. COPD with bilateral areas of interstitial and alveolar infiltrate stable from prior exam. Linear b and of density seen in the right upper lobe is stable from multiple prior exams and most consistent w ith chronic atelectasis or scar. Correlate for pulmonary fibrosis.
[2021-06-14 11:15] LABS: Basophils # (A) 0.01 X 10*3/uL (0.00-0.10); Basophils % (A) 0.1 %; Eosinophils # (A) 0 X 10*3/uL (0.04-0.35); Eosinophils % (A) 0 %; HGB 12.7 g/dL (13.0-17.0); Lymphocytes % (A) 6.9 %; MCHC 32.6 g/dL (32.0-37.0); MCV 95.1 fL (80.0-97.0); Mean Platelet Volume 12.4 fL (9.5-12.2); Monocytes # (A) 0.12 X 10*3/uL (0.20-1.00); Monocytes % (A) 1.4 %; Neutrophils # (A) 7.95 X 10*3/uL (1.80-7.70); Neutrophils % (A) 90.8 %; Platelet Count 177 X 10*3/uL (140-440); RDW 13.5 % (11.5-14.5); WBC 8.75 X 10*3/uL (4.50-10.00)
[2021-06-14 11:38] LABS: African American GFR (CKD) 98.3 (60.0-200.0); Anion Gap 16.2 mmol/L (10.00-18.00); BUN/Creat Ratio 23.06 Ratio (12.00-20.00); Blood Urea Nitrogen 20.2 mg/dL (9.0-27.0); Calcium 9.6 mg/dL (8.7-10.3); Carbon Dioxide 23.7 mmol/L (20.0-27.5); Non-African American GFR(CKD) 84.8 (60.0-200.0); Potassium 4.6 mmol/L (3.5-5.5)
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
[2021-06-14 14:01] VITALS: BP 132/79; PULSE 91; TEMP 98.1
== END 2021-06-14 15:25 | disposition home or self-care (01) | DRG 191 ==
LOC: EC 08:18 → 4SSUR 10:31
PROVIDERS: ADMIT Internal Medicine; ATTEND Internal Medicine
DX: J44.1 Chronic obstructive pulmonary disease with (acute) exacerbation (principal); J96.11 Chronic respiratory failure with hypoxia; J98.11 Atelectasis; I48.20 Chronic atrial fibrillation, unspecified; I69.351 Hemiplegia and hemiparesis following cerebral infarction affecting right dominant side; J84.10 Pulmonary fibrosis, unspecified; Z20.822 Contact with and (suspected) exposure to COVID-19; I25.10 Atherosclerotic heart disease of native coronary artery without angina pectoris; E78.5 Hyperlipidemia, unspecified; I50.9 Heart failure, unspecified; I48.0 Paroxysmal atrial fibrillation; I11.0 Hypertensive heart disease with heart failure; H91.90 Unspecified hearing loss, unspecified ear; J98.4 Other disorders of lung; Z87.19 Personal history of other diseases of the digestive system; Z98.42 Cataract extraction status, left eye; Z98.41 Cataract extraction status, right eye; I25.2 Old myocardial infarction; Z79.01 Long term (current) use of anticoagulants; Z79.02 Long term (current) use of antithrombotics/antiplatelets; Z79.899 Other long term (current) drug therapy; Z86.79 Personal history of other diseases of the circulatory system; Z87.01 Personal history of pneumonia (recurrent); Z87.891 Personal history of nicotine dependence; Z95.1 Presence of aortocoronary bypass graft; Z95.5 Presence of coronary angioplasty implant and graft; Z96.1 Presence of intraocular lens; Z88.8 Allergy status to other drugs, medicaments and biological substances; Z87.81 Personal history of (healed) traumatic fracture
CPT/HCPCS: 36415; 71046; 80048; 80053; 81003; 83605; 85025; 85610; 85730; 87040; 87070; 87205; 87635; 93005; 94640; 99285

== ENCOUNTER 2021-07-09 10:49 | Inpatient (IN) | payer OTHER, MEDICARE ==
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
[2021-07-09 12:07] LABS: Basophils # (A) 0.1 k/uL (0-0.2); Basophils % (A) 1 %; Eosinophils # (A) 0.3 k/uL (0-0.7); Eosinophils % (A) 2 %; HCT 42.8 % (39.0-53.0); HGB 14.1 gm/dL (13.0-17.5); Lymphocytes % (A) 8 %; MCHC 32.9 g/dL (31.0-37.0); MCV 94.2 fL (80.0-100.0); Mean Platelet Volume 10.5; Monocytes # (A) 0.5 k/uL (0-1.0); Monocytes % (A) 4 %; Neutrophils # (A) 10.1 k/uL (1.3-7.7); Neutrophils % (A) 84 %; Platelet Count 172 k/uL (150-450); RBC 4.54 m/uL (4.30-5.90); RDW 13.8 % (11.5-15.5)
[2021-07-09] MEDS ORDERED: LORazepam 2 MG/ML INJ IV STA (12:16)
--- NOTE | 2021-07-09 12:24 | XR ---
EXAMINATION TYPE: XR chest 2V DATE OF EXAM: 07/09/2021 COMPARISON: NONE HISTORY: Shortness of breath TECHNIQUE: Frontal and lateral views of the chest are obtained. FINDINGS: Scattered senescent parenchymal changes noted. Hyperinflation compatible with COPD. Patchy infiltrate right lower lobe is persistent although is improved. Improved aeration left lower l obe. Heart size is stable. Mediastinal structures are stable and grossly unremarkable. No evidence for hilar prominence. Degenerative changes dorsal spine. IMPRESSION: 1. Patchy infiltrate right lower lobe is persistent although is improved. Improved aeration left lowe r lobe.
[2021-07-09 12:48] LABS: Calcium 9.8 mg/dL (8.4-10.2); Total Bilirubin 1.1 mg/dL (0.2-1.3)
[2021-07-09 12:52] LABS: Magnesium 1.7 mg/dL (1.6-2.3); Phosphorus 3.7 mg/dL (2.5-4.5); Potassium 3.5 mmol/L (3.5-5.1); Total Protein 7.6 g/dL (6.3-8.2)
[2021-07-09 12:53] LABS: Albumin 4.4 g/dL (3.5-5.0)
[2021-07-09 12:55] LABS: INR 1.5 (<1.2); Partial Thromboplastin Time 34.7 sec (22.0-30.0); Prothrombin Time 14.9 sec (9.0-12.0)
--- NOTE | 2021-07-09 13:31 | CT ---
EXAMINATION TYPE: CT brain wo con DATE OF EXAM: 07/09/2021 COMPARISON: 04/18/2018 HISTORY: Weakness. CT DLP: 1137.[address] of the brain was performed. The ventricles, basal cisterns and sulci overlying the cerebral convexities demonstrate mild enlargem ent. There is no evidence for intracranial hemorrhage or sulcal effacement. There is decreased attenuation about the periventricular white matter and deep white matter of both c erebral hemispheres, compatible with chronic small vessel ischemia. Differential diagnosis does inclu de demyelination. No mass effects are seen.No midline shift. Osseous calvarium is intact. If symptoms persist consider MRI. IMPRESSION: 1. Age related atrophic and chronic small vessel ischemic change without acute intracranial process s een at this time.
[2021-07-09] MEDS ORDERED: NALOXONE 0.4 MG/ML 1 ML VIAL IV PRN (13:35)
[2021-07-09] MEDS: SODIUM CHLORIDE 0.9% 1,000 ML IV SCH (14:34)
[2021-07-09 14:51] LABS: Appearance,Urine Clear (Clear); Bilirubin,Urine Negative (Negative); Blood,Urine Negative (Negative); Color,Urine Light Yellow; Glucose,Urine (UA) Negative (Negative); Ketones,Urine Negative (Negative); Leukocyte Esterase,Urine Negative (Negative); Nitrite,Urine Negative (Negative); Protein,Urine Negative (Negative); Urobilinogen,Urine <2.0 mg/dL (<2.0)
[2021-07-09] MEDS ORDERED: ALBUTEROL NEBULIZED 2.5 MG/3 ML INHALATION PRN (14:59)
[2021-07-09] MEDS ORDERED: NITROGLYCERIN SL TABS 0.4 MG TAB SUBLINGUAL PRN (14:59)
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
[2021-07-09] MEDS: IPRATROPIUM-ALBUTEROL 3 ML NEB INHALATION SCH ×2 (15:56→19:43)
[2021-07-09 16:02] LABS: T4, Free (Free Thyroxine) 1.02 ng/dL (0.78-2.19)
[2021-07-09] MEDS: PREGABALIN 75 MG CAP PO SCH ×2 (16:50→21:41)
[2021-07-09] MEDS: SYMBICORT 160-4.5 MCG INHALER INHALATION SCH (19:43)
[2021-07-09] MEDS ORDERED: FLUTICASONE INHALATION SCH (20:00)
[2021-07-09] MEDS ORDERED: SALMETEROL INHALATION SCH (20:00)
[2021-07-09] MEDS ORDERED: HEPARIN SODIUM,PORCINE/PF 5,000 UNIT/0.5 ML SYRINGE SQ SCH (21:00)
[2021-07-09] MEDS: PRAVASTATIN SODIUM 80 MG TAB PO SCH (21:41)
[2021-07-09] MEDS: AMITRIPTYLINE HCL 10 MG TAB PO SCH (21:41)
[2021-07-09] MEDS: MONTELUKAST 10 MG TAB PO SCH (21:41)
[2021-07-10] MEDS: SODIUM CHLORIDE 0.9% 1,000 ML IV SCH ×2 (04:20→18:11)
[2021-07-10] MEDS: IPRATROPIUM-ALBUTEROL 3 ML NEB INHALATION SCH ×4 (08:07→19:38)
[2021-07-10] MEDS: SYMBICORT 160-4.5 MCG INHALER INHALATION SCH ×2 (08:07→19:38)
[2021-07-10] MEDS: PREGABALIN 75 MG CAP PO SCH ×3 (08:54→21:04)
[2021-07-10] MEDS: CLOPIDOGREL 75 MG TAB PO SCH (08:55)
[2021-07-10] MEDS: RIVAROXABAN 20 MG TAB PO SCH (08:55)
[2021-07-10] MEDS: ISOSORBIDE MONONITRATE ER 30 MG TAB.ER.24H PO SCH (08:55)
[2021-07-10] MEDS: METOPROLOL SUCCINATE (ER) 100 MG TAB.ER.24H PO SCH (08:56)
[2021-07-10 11:00] LABS: Magnesium 1.9 mg/dL (1.5-2.4); Phosphorus 2.4 mg/dL (2.4-5.1)
[2021-07-10 11:03] LABS: African American GFR (CKD) 76.2 (60.0-200.0); Anion Gap 15.1 mmol/L (10.00-18.00); BUN/Creat Ratio 40.64 Ratio (12.00-20.00); Blood Urea Nitrogen 44.7 mg/dL (9.0-27.0); Calcium 9.1 mg/dL (8.7-10.3); Carbon Dioxide 35.9 mmol/L (20.0-27.5); Non-African American GFR(CKD) 65.8 (60.0-200.0); Potassium 2.5 mmol/L (3.5-5.5)
[2021-07-10] MEDS ORDERED: Potassium Replacement Protocol 1 EACH MISC MISCELLANE PRN (11:58)
[2021-07-10] MEDS: POTASSIUM CHLORIDE ER 20 MEQ TAB.ER PO SCH ×3 (12:05→14:56)
--- NOTE | 2021-07-10 18:32 | US ---
EXAMINATION TYPE: US kidneys/renal and bladder DATE OF EXAM: 07/10/2021 COMPARISON: NONE CLINICAL HISTORY: RF. Macroscopic hematuria. Shahid. EXAM MEASUREMENTS: Right Kidney: 11.4 x 4.9 x 5.0 cm Left Kidney: 11.2 x 4.7 x 5.7 cm Right Kidney: No hydronephrosis or masses seen Left Kidney: Limited visualization due to patient body habitus Bladder: Shahid Bilateral Jets not seen due to shahid There is no evidence for hydronephrosis at this point in time. No nephrolithiasis is seen. No king s are identified. IMPRESSION: No distinct abnormality appreciated at this time.
--- NOTE | 2021-07-10 20:18 | CONS ---
CONSULTATION REASON FOR CONSULT: Acute kidney injury. HISTORY OF PRESENT ILLNESS: Patient is a 75-year-old male who was admitted to the hospital with complaints of increased weakness and fatigue which had been going on for about 1-1/2 weeks prior to admission. Patient denies any previous history of kidney diseases. He was noticed to have significant urine retention and a Cain catheter was placed in the ER. It is unclear as to how much urine was obtained on initial Cain catheter placement; perhaps 800 mL. Patient does have underlying BPH. Serum creatinine was 1.7 mg/dL on admission. It is down to 1.1 now. Previous creatinine 0.9 on 06/14/2021. Blood pressure has been low, with systolic in the 90s and 92 mmHg yesterday. Patient did admit to history of use of nonsteroidal anti-inflammatory agents. He is maintained on diuretics. I do not see any GEENA inhibitors or angiotensin receptor blockers on his current med list. PAST MEDICAL HISTORY: Significant for atrial fibrillation, coronary artery disease, chest pain/angina, CHF, cardiomyopathy, EF 40% to 45%, COPD, CVA/TIA, gastroesophageal reflux disease, hearing loss, hyperlipidemia, MA, peripheral neuropathy. PAST SURGICAL HISTORY: Coronary stent placement, coronary artery bypass surgery, AAA repair, right hand fracture with surgery, colonoscopy, benign polypectomy, bilateral cataract surgery. SOCIAL HISTORY: Patient is a former smoker. No history of drug abuse or alcohol abuse. MEDICATIONS: Medications prior to admission included Pravachol, Imdur, Singulair, Plavix, omeprazole, Toprol, Elavil, Nitrostat, Xarelto, Lyrica, loratadine, Aldactone, Lasix, potassium, Zaroxolyn. ALLERGIES: ALLERGIES include REQUIP, which caused aggressive behavior. REVIEW OF SYSTEMS: As per HPI. Other systems negative. PHYSICAL EXAMINATION: Patient is currently comfortable, awake. He is not in any acute distress. Blood pressure was 99/58. Earlier this morning it was 129/71. Heart rate of 90 per minute. He is afebrile. EXAMINATION OF THE HEART: S1 and S2. EXAMINATION OF LUNGS: Bilateral breath sounds are heard. Decreased breath sounds at the bases. Abdomen is soft, non-tender. Examination of lower extremities shows chronic skin changes; no significant edema noted. LABS: Labs show sodium 138, potassium 2.5, CO2 35.9, chloride 87, BUN 44.7, creatinine down to 1.1. Lactic acid was 2.3, down to 1.7 now. UA is completely negative. ASSESSMENT: 1. Acute kidney injury, obstructive uropathy and perhaps a component of hypotension, currently improved significantly with Cain catheter placement. Patient is also maintained on IV fluids. Creatinine down to 1.1 from 1.7. UA is completely benign. Check ultrasound of the kidneys. 2. Urine retention, currently with indwelling Cain catheter with history of benign prostatic hypertrophy, maintained on Flomax. 3. Cardiomyopathy, ejection fraction 40% to 45% in March of 2021, with mildly dilated left atrium, moderate tricuspid regurgitation and severe pulmonary hypertension. 4. Chronic obstructive pulmonary disease with chronic hypercapnic respiratory failure. 5. Coronary artery disease with history of coronary artery stenting and coronary artery bypass surgery. 6. Hypokalemia associated with use of diuretics, currently being replaced. Magnesium was 1.7 mg/dL. PLAN: Continue with IV fluids. Continue with Cain catheter. Replace potassium aggressively, as there will likely be postobstructive diuresis. Thank you for this consultation. Will continue to follow the patient with you during his hospitalization. MMODL / IJN: [id number] /
[2021-07-10] MEDS: MONTELUKAST 10 MG TAB PO SCH (21:04)
[2021-07-10] MEDS: PRAVASTATIN SODIUM 80 MG TAB PO SCH (21:04)
[2021-07-10] MEDS: AMITRIPTYLINE HCL 10 MG TAB PO SCH (21:04)
[2021-07-11] MEDS: SODIUM CHLORIDE 0.9% 1,000 ML IV SCH ×2 (06:01→22:46)
[2021-07-11] MEDS: IPRATROPIUM-ALBUTEROL 3 ML NEB INHALATION SCH ×4 (08:19→19:47)
[2021-07-11] MEDS: SYMBICORT 160-4.5 MCG INHALER INHALATION SCH ×2 (08:20→19:47)
[2021-07-11] MEDS ORDERED: NA PHOS,M-B/NA PHOS,DI-BA 133 ML ENEMA RECTAL ONE (08:36)
[2021-07-11] MEDS ORDERED: Potassium Replacement Protocol 1 EACH MISC MISCELLANE PRN (08:37)
--- NOTE | 2021-07-11 08:43 | P.PN ---
Subjective Progress Note Date: 07/10/21 Patient is a 75-year-old male came in the with complaints of generalized weakness tiredness. She does have comparing of generalized weakness has been going on for about a week and half. Patient denied any fever chills patient denied dysuria patient denied orthopnea proximal nocturnal dyspnea patient had BNP that is a around thousand 1200. Patient does have history of cut his heart failure chronic systolic dysfunction EF of around 40-45% along with right-sided heart failure and a moderate pulmonary hypertension. Patient does use 2 L of oxygen at home. Wound to have acute renal failure baseline creatinine around 1 present creatinine is 1.5 along with the hyponatremia. Probably secondary to excessive diuresis patient does take Lasix and metolazone at home. Patient was started on gentle hydration. Chest x-ray did not show pulmonary edema. 07/10/2021 Patient is seen this morning in follow-up with no acute overnight issues noted. Patient states he feels slightly constipated and requesting something and will order fleets enema. Patient continues on gentle IV hydration creatinine im proved at 1.1 along with BUN is 44.7. Potassium found a critically low at 2.5 and will replace per protocol. Sodium also improved at 138. Will continue IV hydration for now and replace potassium per protocol and repeat labs. Nephrology also following. Abdomen bladder ultrasound was ordered and pending. Review of systems: Constitutional: No reports of fatigue, fever, or chills Cardiovascular: No reports of chest pain or palpitations Respiratory: No reports of shortness of breath or cough GI: No reports of nausea, vomiting, or diarrhea, reports feeling constipated : No reports of dysuria or retention Neurovascular: No reports of weakness or numbness All medications have been reviewed Active Medications Albuterol Sulfate (Albuterol Nebulized 2.5 Mg/3 Ml) 2.5 mg INHALATION RT-QID PRN PRN Reason: Shortness Of Breath Albuterol/Ipratropium (Ipratropium-Albuterol 3 Ml Neb) 3 ml INHALATION RT-QID [facility] Last Admin: 07/11/21 08:19 Dose: 3 ml Documented by: Amitriptyline HCl (Amitriptyline Hcl 10 Mg Tab) 10 mg PO HS [facility] Last Admin: 07/10/21 21:04 Dose: 10 mg Documented by: Budesonide/Formoterol Fumarate (Symbicort 160-4.5 Mcg Inhaler) 2 puff INHAL ATION RT-BID [facility] Last Admin: 07/11/21 08:20 Dose: 2 puff Documented by: Clopidogrel Bisulfate (Clopidogrel 75 Mg Tab) 75 mg PO DAILY [facility] Last Admin: 07/10/21 08:55 Dose: 75 mg Documented by: Sodium Chloride (Saline 0.9%) 1,000 mls @ 75 mls/hr IV .[id number] [facility] Last Admin: 07/11/21 06:01 Dose: 75 mls/hr Documented by: Potassium Chloride 10 meq/ IV (Solution) 100 mls @ 100 mls/hr IVPB Q1HR [facility]; Protocol Stop: 07/11/21 14:59 Isosorbide Mononitrate (Isosorbide Mononitrate Er 30 Mg Tab.Er.24h) 30 mg PO DAILY [facility] Last Admin: 07/10/21 08:55 Dose: 30 mg Documented by: Metoprolol Succinate (Metoprolol Succinate (Er) 100 Mg Tab.Er.24h) 100 mg PO DAILY [facility] Last Admin: 07/10/21 08:56 Dose: 100 mg Documented by: Miscellaneous Information (Potassium Replacement Protocol 1 Each Misc) 1 each MISCELLANE DAILY PRN; Protocol PRN Reason: Per Protocol Miscellaneous Information (Potassium Replacement Protocol 1 Each Misc) 1 each MISCELLANE DAILY PRN; Protocol PRN Reason: Per Protocol Montelukast Sodium (Montelukast 10 Mg Tab) 10 mg PO HS [facility] Last Admin: 07/10/21 21:04 Dose: 10 mg Documented by: Naloxone HCl (Naloxone 0.4 Mg/Ml 1 Ml Vial) 0.2 mg IV Q2M PRN PRN Reason: Opioid Reversal Nitroglycerin (Nitroglycerin Sl Tabs 0.4 Mg Tab) 0.4 mg SUBLINGUAL Q5M PRN PRN Reason: Chest Pain Pravastatin Sodium (Pravastatin Sodium 80 Mg Tab) 80 mg PO HS [facility] Last Admin: 07/10/21 21:04 Dose: 80 mg Documented by: Pregabalin (Pregabalin 75 Mg Cap) 75 mg PO TID [facility] Last Admin: 07/10/21 21:04 Dose: 75 mg Documented by: Rivaroxaban (Rivaroxaban 20 Mg Tab) 20 mg PO DAILY [facility]; Protocol Last Admin: 07/10/21 08:55 Dose: 20 mg Documented by: Steven (Sennosides 8.6 Mg Tab) 8.6 mg PO DAILY [facility] PHYSICAL EXAMINATION: GENERAL: The patient is alert and oriented x3, not in any acute distress. Well developed, well nourished. HEENT: Pupils are round and equally reacting to light. EOMI. No scleral icterus. No conjunctival pallor. Normocephalic, atraumatic. No pharyngeal erythema. No thyromegaly. CARDIOVASCULAR: S1 and S2 present. No murmurs, rubs, or gallops. PULMONARY: Chest is clear to auscultation, no wheezing or crackles. ABDOMEN: Soft, nontender, nondistended, normoactive bowel sounds. No palpable organomegaly. MUSCULOSKELETAL: No joint swelling or deformity. EXTREMITIES: No cyanosis, clubbing, or pedal edema. NEUROLOGICAL: Gross neurological examination did not reveal any focal deficits. SKIN: No rashes. Assessment and plan: -Generalized weakness: Secondary to intervascular depletion from excessive diuretic therapy patient is on diuretics -Gait dysfunction -Severe hypokalemia, potassium 2.5 -Acute renal failure: Secondary to excessive diuresis based and creatinine around 1 present creatinine is trending down and is 1.1 -hypovolemic hyponatremia for which patient will continue gentle IV fluids -Congestive heart failure chronic systolic dysfunction with EF of around the 40- 45% along with right-sided heart failure and moderate pulmonary hypertension patient is hypovolemic, continue 2 hold diuretics for now -COPD and chronic hypercapnic respiratory failure uses 2 L of oxygen which will be continued -Hyperlipidemia -hypertension -Coronary artery disease -DVT prophylaxis: Subcutaneous heparin Plan: Continue patient on gentle IV hydration and nephrology consulted. Creatinine improved at 1.1 and will continue to hold diuretics for now. Potassium found to be critically low at 2.5 and will replace per protocol. Repeat labs in the morning. Patient is having some feelings of constipation and has not had a bowel movement and will order fleets enema along with Senokot. Repeat a.m. labs and continue to monitor closely. PT/OT for evaluation as patient is weak. Objective - Vital Signs Vital signs: Vital Signs Temp 98.0 F 07/10/21 07:00 Pulse 71 07/10/21 08:15 Resp 16 07/10/21 07:00 BP 129/71 07/10/21 07:00 Pulse Ox 97 07/10/21 07:00 Intake & Output 07/09/21 07/10/21 07/10/21 18:59 06:59 18:59 Intake Total 240 Output Total 2039 480 880 Balance -1800 -480 -880 Weight 106.594 kg Intake: Oral 240 Output: Urine 2039 480 880 Uretheral (Cain) 800 Other: Voiding Method Indwelling Catheter Indwelling Catheter # Bowel Movements 0 - Labs CBC & Chem 7: 07/09/21 11:54 07/11/21 06:36 Labs: Abnormal Lab Results - Last 24 Hours (Table) 07/09/21 07/09/21 07/09/21 Range/Units 11:54 11:54 11:54 WBC 12.0 H (3.8-10.6) k/uL Neutrophils # 10.1 H (1.3-7.7) k/uL PT 14.9 H (9.0-12.0) sec INR 1.5 H (<1.2) APTT 34.7 H (22.0-30.0) sec Sodium 131 L (137-145) mmol/L Chloride 82 L (98-107) mmol/L Carbon Dioxide 31 H (22-30) mmol/L BUN 71 H (9-20) mg/dL Creatinine 1.70 H (0.66-1.25) mg/dL Glucose 137 H (74-99) mg/dL Plasma Lactic Acid Richard (0.7-2.0) mmol/L 07/09/21 Range/Units 11:54 WBC (3.8-10.6) k/uL Neutrophils # (1.3-7.7) k/uL PT (9.0-12.0) sec INR (<1.2) APTT (22.0-30.0) sec Sodium (137-145) mmol/L Chloride (98-107) mmol/L Carbon Dioxide (22-30) mmol/L BUN (9-20) mg/dL Creatinine (0.66-1.25) mg/dL Glucose (74-99) mg/dL Plasma Lactic Acid Richard 2.3 H* (0.7-2.0) mmol/L
[2021-07-11] MEDS: POTASSIUM CHLORIDE 10 MEQ in WATER FOR INJECTION 1 100ML.BAG IVPB SCH ×5 (09:12→15:07)
[2021-07-11] MEDS: PREGABALIN 75 MG CAP PO SCH ×3 (09:13→21:20)
[2021-07-11] MEDS: METOPROLOL SUCCINATE (ER) 100 MG TAB.ER.24H PO SCH (09:13)
[2021-07-11] MEDS: RIVAROXABAN 20 MG TAB PO SCH (09:13)
[2021-07-11] MEDS: CLOPIDOGREL 75 MG TAB PO SCH (09:13)
[2021-07-11] MEDS: ISOSORBIDE MONONITRATE ER 30 MG TAB.ER.24H PO SCH (09:13)
[2021-07-11] MEDS ORDERED: ACETAMINOPHEN TAB 325 MG TAB PO STA (09:21)
[2021-07-11] MEDS: SENNOSIDES 8.6 MG TAB PO SCH (09:31)
[2021-07-11] MEDS ORDERED: POTASSIUM CHLORIDE ER 20 MEQ TAB.ER PO STA (11:23)
[2021-07-11] MEDS: ACETAMINOPHEN TAB 325 MG TAB PO PRN ×2 (15:30→21:20)
--- NOTE | 2021-07-11 18:07 | PN ---
PROGRESS NOTE Patient is seen for followup for acute kidney injury and hypokalemia. He was found to have urine retention and is currently status post Cain catheter placement. Creatinine has improved to 1.1 as of yesterday from 1.7 on initial admission. PHYSICAL EXAMINATION: On examination today, blood pressure this morning 117/71, heart rate 80 per minute. Patient is afebrile. Examination of the heart S1, S2. Examination of the lungs, bilateral breath sounds are heard. Abdomen is soft, nontender. Examination of lower extremities shows no significant edema. LAB: Show sodium 138, potassium 2.5 yesterday, today potassium is 2.7. Serum creatinine was 1.1 yesterday on 07/10/2021. ASSESSMENT: 1. Acute kidney injury prerenal as well as obstructive uropathy status post Cain catheter placement with improvement in renal function. Check labs in a.m. 2. Hypokalemia associated with the use of diuretics, currently being replaced. Not on diuretics now. 3. Benign prostatic hypertrophy and urine retention, currently with Cain catheter. 4. Coronary artery disease with history of coronary artery stenting and coronary artery bypass surgery. 5. Chronic obstructive pulmonary disease with chronic hypercapnic respiratory failure. 6. Cardiomyopathy, ejection fraction 40-45% in March with mildly dilated left atrium, moderate tricuspid regurg, severe pulmonary hypertension. PLAN: Continue with the Cain catheter. Repeat labs. Replace potassium aggressively. Magnesium was 1.9 on July 10. Continue off diuretics for now. MMODL / IJN: [id number] /
[2021-07-11] MEDS: PRAVASTATIN SODIUM 80 MG TAB PO SCH (21:20)
[2021-07-11] MEDS: AMITRIPTYLINE HCL 10 MG TAB PO SCH (21:20)
[2021-07-11] MEDS: MONTELUKAST 10 MG TAB PO SCH (21:20)
--- NOTE | 2021-07-12 00:12 | P.PN ---
Subjective Progress Note Date: 07/11/21 Patient is a 75-year-old male came in the with complaints of generalized weakness tiredness. She does have comparing of generalized weakness has been going on for about a week and half. Patient denied any fever chills patient denied dysuria patient denied orthopnea proximal nocturnal dyspnea patient had BNP that is a around thousand 1200. Patient does have history of cut his heart failure chronic systolic dysfunction EF of around 40-45% along with right-sided heart failure and a moderate pulmonary hypertension. Patient does use 2 L of oxygen at home. Wound to have acute renal failure baseline creatinine around 1 present creatinine is 1.5 along with the hyponatremia. Probably secondary to excessive diuresis patient does take Lasix and metolazone at home. Patient was started on gentle hydration. Chest x-ray did not show pulmonary edema. 07/10/2021 Patient is seen this morning in follow-up with no acute overnight issues noted. Patient states he feels slightly constipated and requesting something and will order fleets enema. Patient continues on gentle IV hydration creatinine im proved at 1.1 along with BUN is 44.7. Potassium found a critically low at 2.5 and will replace per protocol. Sodium also improved at 138. Will continue IV hydration for now and replace potassium per protocol and repeat labs. Nephrology also following. Abdomen bladder ultrasound was ordered and pending. 07/11/2021 Patient is seen and evaluated today with at the bedside. Patient continues with IV fluids and indwelling shahid catheter. Nephrology following closely and will continue with shahid for now as patient was retaining. Patient requesting to have shahid removed. Sodium is improved and potassium continues to be low and will continue to replace per protocol and repeat am labs. Patient continues on 3L via [place] and states he chronically uses this and denies any worsening shortness of breath. Patient denies chest pain or palpitations. Patient is afebrile. No reports of nausea or vomiting. Patient also inquiring about discharge. Patient reports to having a bowel movement last night. Review of systems: Constitutional: No reports of fatigue, fever, or chills Cardiovascular: No reports of chest pain or palpitations Respiratory: No reports of shortness of breath or cough GI: No reports of nausea, vomiting, or diarrhea, reports a bowel movement : No reports of dysuria or retention Neurovascular: No reports of weakness or numbness All medications have been reviewed Active Medications Acetaminophen (Acetaminophen Tab 325 Mg Tab) 650 mg PO Q6HR PRN PRN Reason: Fever and/ or Pain Last Admin: 07/11/21 21:20 Dose: 650 mg Documented by: Albuterol Sulfate (Albuterol Nebulized 2.5 Mg/3 Ml) 2.5 mg INHALATION RT-QID PRN PRN Reason: Shortness Of Breath Albuterol/Ipratropium (Ipratropium-Albuterol 3 Ml Neb) 3 ml INHALATION RT-QID [facility] Last Admin: 07/11/21 19:47 Dose: 3 ml Documented by: Amitriptyline HCl (Amitriptyline Hcl 10 Mg Tab) 10 mg PO HS [facility] Last Admin: 07/11/21 21:20 Dose: 10 mg Documented by: Budesonide/Formoterol Fumarate (Symbicort 160-4.5 Mcg Inhaler) 2 puff INHALATION RT-BID [facility] Last Admin: 07/11/21 19:47 Dose: 2 puff Documented by: Clopidogrel Bisulfate (Clopidogrel 75 Mg Tab) 75 mg PO DAILY [facility] Last Admin: 07/11/21 09:13 Dose: 75 mg Documented by: Sodium Chloride (Saline 0.9%) 1,000 mls @ 75 mls/hr IV .[id number] [facility] Last Admin: 07/11/21 22:46 Dose: Not Given Documented by: Isosorbide Mononitrate (Isosorbide Mononitrate Er 30 Mg Tab.Er.24h) 30 mg PO DAILY [facility] Last Admin: 07/11/21 09:13 Dose: 30 mg Documented by: Metoprolol Succinate (Metoprolol Succinate (Er) 100 Mg Tab.Er.24h) 100 mg PO DAILY [facility] Last Admin: 07/11/21 09:13 Dose: 100 mg Documented by: Miscellaneous Information (Potassium Replacement Protocol 1 Each Misc) 1 each MISCELLANE DAILY PRN; Protocol PRN Reason: Per Protocol Miscellaneous Information (Potassium Replacement Protocol 1 Each Misc) 1 each MISCELLANE DAILY PRN; Protocol PRN Reason: Per Protocol Montelukast Sodium (Montelukast 10 Mg Tab) 10 mg PO [facility] Last Admin: 07/11/21 21:20 Dose: 10 mg Documented by: Naloxone HCl (Naloxone 0.4 Mg/Ml 1 Ml Vial) 0.2 mg IV Q2M PRN PRN Reason: Opioid Reversal Nitroglycerin (Nitroglycerin Sl Tabs 0.4 Mg Tab) 0.4 mg SUBLINGUAL Q5M PRN PRN Reason: Chest Pain Pravastatin Sodium (Pravastatin Sodium 80 Mg Tab) 80 mg PO HS [facility] Last Admin: 07/11/21 21:20 Dose: 80 mg Documented by: Pregabalin (Pregabalin 75 Mg Cap) 150 mg PO TID [facility] Last Admin: 07/11/21 21:20 Dose: 150 mg Documented by: Rivaroxaban (Rivaroxaban 20 Mg Tab) 20 mg PO DAILY [facility]; Protocol Last Admin: 07/11/21 09:13 Dose: 20 mg Documented by: Senna (Sennosides 8.6 Mg Tab) 8.6 mg PO DAILY [facility] Last Admin: 07/11/21 09:31 Dose: 8.6 mg Documented by: PHYSICAL EXAMINATION: GENERAL: The patient is alert and oriented x3, not in any acute distress. Well developed, well nourished. HEENT: Pupils are round and equally reacting to light. EOMI. No scleral icterus. No conjunctival pallor. Normocephalic, atraumatic. No pharyngeal erythema. No thyromegaly. CARDIOVASCULAR: S1 and S2 present. No murmurs, rubs, or gallops. PULMONARY: Chest is clear to auscultation, no wheezing or crackles. ABDOMEN: Soft, nontender, nondistended, normoactive bowel sounds. No palpable organomegaly. MUSCULOSKELETAL: No joint swelling or deformity. EXTREMITIES: No cyanosis, clubbing, or pedal edema. NEUROLOGICAL: Gross neurological examination did not reveal any focal deficits. SKIN: No rashes. Assessment and plan: -Generalized weakness: Secondary to intervascular depletion from excessive diuretic therapy -Gait dysfunction -Severe hypokalemia, potassium 2.7 and will replace and repeat am labs -Acute renal failure: Secondary to excessive diuresis based and creatinine around 1 present creatinine is trending down and is 1.1 -hypovolemic hyponatremia for which patient will continue gentle IV fluids -Congestive heart failure chronic systolic dysfunction with EF of around the 40- 45% along with right-sided heart failure and moderate pulmonary hypertension patient is hypovolemic, continue 2 hold diuretics for now -COPD and chronic hypercapnic respiratory failure uses 2-3 L of oxygen which will be continued -Hyperlipidemia -hypertension -Coronary artery disease -DVT prophylaxis: Subcutaneous heparin Plan: Continue patient on gentle IV hydration and nephrology following and recommend to continue with shahid and IV fluids for now with close monitoring. Potassium continues to be low and will replace and repeat am labs. continue to hold diuretics for now. Will continue to monitor closely and discuss with nephrology about treatment plan. Patient is asking when he can go home. Possible discharge in 24-48 hours. Objective - Vital Signs Vital signs: Vital Signs Temp 97.8 F 07/11/21 03:50 Pulse 74 07/11/21 08:32 Resp 16 07/11/21 08:32 BP 124/76 07/11/21 03:50 Pulse Ox 96 07/11/21 03:50 Intake & Output 07/10/21 07/11/21 07/11/21 18:59 06:59 18:59 Intake Total 1192 Output Total 880 920 Balance 312 -920 Intake: Oral 1192 Output: Urine 880 920 Other: Voiding Method Indwelling Catheter Indwelling Catheter # Voids 480 # Bowel Movements 1 0 - Labs CBC & Chem 7: 07/09/21 11:54 07/11/21 19:33 Labs: Abnormal Lab Results - Last 24 Hours (Table) 07/10/21 07/11/21 Range/Units 06:06 06:36 Potassium 2.5 L* 2.7 L* (3.5-5.5) mmol/L Chloride 87 L (96-109) mmol/L Carbon Dioxide 35.9 H (20.0-27.5) mmol/L BUN 44.7 H (9.0-27.0) mg/dL BUN/Creatinine Ratio 40.64 H (12.00-20.00) Ratio Glucose 141 H (70-110) mg/dL
[2021-07-12 06:44] LABS: Basophils % (A) 0 %; Eosinophils # (A) 0.4 k/uL (0-0.7); Eosinophils % (A) 5 %; HCT 36.8 % (39.0-53.0); HGB 11.8 gm/dL (13.0-17.5); Lymphocytes # (A) 1.3 k/uL (1.0-4.8); Lymphocytes % (A) 15 %; MCH 30.7 pg (25.0-35.0); MCHC 31.9 g/dL (31.0-37.0); Monocytes # (A) 0.5 k/uL (0-1.0); Monocytes % (A) 5 %; Neutrophils # (A) 6.5 k/uL (1.3-7.7); Neutrophils % (A) 73 %; Platelet Count 151 k/uL (150-450); RBC 3.83 m/uL (4.30-5.90); WBC 8.9 k/uL (3.8-10.6)
[2021-07-12 06:47] LABS: African American GFR (CKD) >90 (>60 ml/min/1.73 sqM); Anion Gap 5 mmol/L; Blood Urea Nitrogen 21 mg/dL (9-20); Carbon Dioxide 37 mmol/L (22-30); Chloride 92 mmol/L (98-107); Glucose 124 mg/dL (74-99); Non-African American GFR(CKD) >90 (>60 ml/min/1.73 sqM); Sodium 134 mmol/L (137-145)
[2021-07-12] MEDS: ISOSORBIDE MONONITRATE ER 30 MG TAB.ER.24H PO SCH (07:34)
[2021-07-12] MEDS: CLOPIDOGREL 75 MG TAB PO SCH (07:34)
[2021-07-12] MEDS: SENNOSIDES 8.6 MG TAB PO SCH (07:34)
[2021-07-12] MEDS: METOPROLOL SUCCINATE (ER) 100 MG TAB.ER.24H PO SCH (07:35)
[2021-07-12] MEDS: PREGABALIN 75 MG CAP PO SCH ×3 (07:36→20:09)
[2021-07-12] MEDS: RIVAROXABAN 20 MG TAB PO SCH (07:37)
[2021-07-12] MEDS: ACETAMINOPHEN TAB 325 MG TAB PO PRN ×2 (07:44→14:05)
[2021-07-12] MEDS: IPRATROPIUM-ALBUTEROL 3 ML NEB INHALATION SCH ×4 (10:30→20:48)
[2021-07-12] MEDS: SYMBICORT 160-4.5 MCG INHALER INHALATION SCH ×2 (10:30→20:48)
[2021-07-12] MEDS: SODIUM CHLORIDE 0.9% 1,000 ML IV SCH (11:44)
[2021-07-12] MEDS ORDERED: Potassium Replacement Protocol 1 EACH MISC MISCELLANE PRN (12:06)
[2021-07-12] MEDS: POTASSIUM CHLORIDE ER 20 MEQ TAB.ER PO SCH ×2 (12:36→14:04)
--- NOTE | 2021-07-12 13:43 | P.PN ---
Subjective Progress Note Date: 07/12/21 Principal diagnosis: This is a 75-year-old male seen in consultation because of obstructive nephropathy. With Cain catheter is creatinine coming down to normal. He has hypokalemia secondary to postobstructive diuresis as well as normal saline induced potassium loss. Currently complains of neuropathy which is chronic and usually controlled with gabapentin he feels that his dose is not the same as at home. He was taking 200 mg 3 times a day Other than this no nausea vomiting no diarrhea no abdominal pain. Her graft is known with coronary artery disease prostatism, COPD, cardiomyopathy ejection fraction of 40-45% Vital signs are stable urine output is documented at 7 75 mL. Objective - Vital Signs Vital signs: Vital Signs Temp 97.7 F 07/12/21 07:54 Pulse 84 07/12/21 10:40 Resp 18 07/12/21 07:54 BP 112/71 07/12/21 07:54 Pulse Ox 98 07/12/21 07:54 Intake & Output 07/11/21 07/12/21 07/12/21 18:59 06:59 18:59 Intake Total 444 114 Output Total 775 Balance 444 -775 114 Intake: Oral 444 114 Output: Urine 775 Other: Voiding Method Indwelling Catheter Indwelling Catheter Indwelling Catheter Eleazar awake alert oriented comfortable sitting in a chair HEENT exam no JVP neck is supple no facial asymmetry Lungs clear to auscultation good air entry with an occasional bibasal are coarse crackle. He is known with COPD Heart sounds unremarkable for any murmur rub gallop Abdomen soft nontender protuberant Extremity exam was reveals no edema Neurologically awake alert oriented - Labs CBC & Chem 7: 07/12/21 06:20 07/12/21 06:20 Labs: Abnormal Lab Results - Last 24 Hours (Table) 07/11/21 07/12/21 07/12/21 Range/Units 19:33 06:20 06:20 RBC 3.83 L (4.30-5.90) m/uL Hgb 11.8 L (13.0-17.5) gm/dL Hct 36.8 L (39.0-53.0) % Sodium 134 L (137-145) mmol/L Potassium 3.3 L 3.0 L (3.5-5.1) mmol/L Chloride 92 L (98-107) mmol/L Carbon Dioxide 37 H (22-30) mmol/L BUN 21 H (9-20) mg/dL Glucose 124 H (74-99) mg/dL Assessment and Plan Assessment: Resident 1. obstructive nephropathy with acute kidney injury resolved Cain catheter 2. Hypokalemia secondary to postobstructive diuresis and normal saline 3. Diabetic neuropathy 4. Coronary artery disease, cardiomyopathy 5. COPD. Recommendation 1. DC IV fluids 2. KCl 20 q2 hours for 4 doses total of 80 mEq. 3. Monitor potassium
[2021-07-12] MEDS ORDERED: POTASSIUM CHLORIDE ER 20 MEQ TAB.ER PO STA (15:03)
[2021-07-12] MEDS: ALPRAZolam 0.25 MG TAB PO PRN (16:09)
[2021-07-12] MEDS: PRAVASTATIN SODIUM 80 MG TAB PO SCH (20:09)
[2021-07-12] MEDS: MONTELUKAST 10 MG TAB PO SCH (20:09)
[2021-07-12] MEDS: AMITRIPTYLINE HCL 10 MG TAB PO SCH (20:09)
[2021-07-12 20:57] VITALS: RESP 18
--- NOTE | 2021-07-13 00:12 | P.PN ---
Subjective Progress Note Date: 07/12/21 Patient is a 75-year-old male came in the with complaints of generalized weakness tiredness. She does have comparing of generalized weakness has been going on for about a week and half. Patient denied any fever chills patient denied dysuria patient denied orthopnea proximal nocturnal dyspnea patient had BNP that is a around thousand 1200. Patient does have history of cut his heart failure chronic systolic dysfunction EF of around 40-45% along with right-sided heart failure and a moderate pulmonary hypertension. Patient does use 2 L of oxygen at home. Wound to have acute renal failure baseline creatinine around 1 present creatinine is 1.5 along with the hyponatremia. Probably secondary to excessive diuresis patient does take Lasix and metolazone at home. Patient was started on gentle hydration. Chest x-ray did not show pulmonary edema. 07/10/2021 Patient is seen this morning in follow-up with no acute overnight issues noted. Patient states he feels slightly constipated and requesting something and will order fleets enema. Patient continues on gentle IV hydration creatinine im proved at 1.1 along with BUN is 44.7. Potassium found a critically low at 2.5 and will replace per protocol. Sodium also improved at 138. Will continue IV hydration for now and replace potassium per protocol and repeat labs. Nephrology also following. Abdomen bladder ultrasound was ordered and pending. 07/11/2021 Patient is seen and evaluated today with at the bedside. Patient continues with IV fluids and indwelling shahid catheter. Nephrology following closely and will continue with shahid for now as patient was retaining. Patient requesting to have shahid removed. Sodium is improved and potassium continues to be low and will continue to replace per protocol and repeat am labs. Patient continues on 3L via NC and states he chronically uses this and denies any worsening shortness of breath. Patient denies chest pain or palpitations. Patient is afebrile. No reports of nausea or vomiting. Patient also inquiring about discharge. Patient reports to having a bowel movement last night. 07/12/2021 Patient is seen today and continues to be closely monitored by nephrology. Aggressively correcting potassium and is 3.0 today and will replace. continue with indwelling shahid for now. Patient ultrasound showed no hydronephrosis. Patient extremely anxious and would like to go home. Will discuss with nephrology about discharge planning and if shahid will be required on discharge with close outpatient follow up. No reports of chest pain or shortness of breath. Patient is afebrile. Review of systems: Constitutional: No reports of fatigue, fever, or chills Cardiovascular: No reports of chest pain or palpitations Respiratory: No reports of shortness of breath or cough GI: No reports of nausea, vomiting, or diarrhea, reports a bowel movement : No reports of dysuria or retention Neurovascular: No reports of weakness or numbness All medications have been reviewed Active Medications Acetaminophen (Acetaminophen Tab 325 Mg Tab) 650 mg PO Q6HR PRN PRN Reason: Fever and/ or Pain Last Admin: 07/12/21 14:05 Dose: 650 mg Documented by: Albuterol Sulfate (Albuterol Nebulized 2.5 Mg/3 Ml) 2.5 mg INHALATION RT-QID PRN PRN Reason: Shortness Of Breath Albuterol/Ipratropium (Ipratropium-Albuterol 3 Ml Neb) 3 ml INHALATION RT-QID [facility] Last Admin: 07/12/21 20:48 Dose: 3 ml Documented by: Alprazolam (Alprazolam 0.25 Mg Tab) 0.25 mg PO TID PRN PRN Reason: Anxiety Last Admin: 07/12/21 16:09 Dose: 0.25 mg Documented by: Amitriptyline HCl (Amitriptyline Hcl 10 Mg Tab) 10 mg PO HS [facility] Last Admin: 07/12/21 20:09 Dose: 10 mg Documented by: Budesonide/Formoterol Fumarate (Symbicort 160-4.5 Mcg Inhaler) 2 puff INHALATION RT-BID [facility] Last Admin: 07/12/21 20:48 Dose: 2 puff Documented by: Clopidogrel Bisulfate (Clopidogrel 75 Mg Tab) 75 mg PO DAILY [facility] Last Admin: 07/12/21 07:34 Dose: 75 mg Documented by: Isosorbide Mononitrate (Isosorbide Mononitrate Er 30 Mg Tab.Er.24h) 30 mg PO DAILY [facility] Last Admin: 07/12/21 07:34 Dose: 30 mg Documented by: Metoprolol Succinate (Metoprolol Succinate (Er) 100 Mg Tab.Er.24h) 100 mg PO DAILY [facility] Last Admin: 07/12/21 07:35 Dose: 100 mg Documented by: Miscellaneous Information (Potassium Replacement Protocol 1 Each Misc) 1 each MISCELLANE DAILY PRN; Protocol PRN Reason: Per Protocol Montelukast Sodium (Montelukast 10 Mg Tab) 10 mg PO HS [facility] Last Admin: 07/12/21 20:09 Dose: 10 mg Documented by: Naloxone HCl (Naloxone 0.4 Mg/Ml 1 Ml Vial) 0.2 mg IV Q2M PRN PRN Reason: Opioid Reversal Nitroglycerin (Nitroglycerin Sl Tabs 0.4 Mg Tab) 0.4 mg SUBLINGUAL Q5M PRN PRN Reason: Chest Pain Pravastatin Sodium (Pravastatin Sodium 80 Mg Tab) 80 mg PO HS [facility] Last Admin: 07/12/21 20:09 Dose: 80 mg Documented by: Pregabalin (Pregabalin 75 Mg Cap) 150 mg PO TID [facility] Last Admin: 07/12/21 20:09 Dose: 150 mg Documented by: Rivaroxaban (Rivaroxaban 20 Mg Tab) 20 mg PO DAILY [facility]; Protocol Last Admin: 07/12/21 07:37 Dose: 20 mg Documented by: Senna (Sennosides 8.6 Mg Tab) 8.6 mg PO DAILY [facility] Last Admin: 07/12/21 07:34 Dose: 8.6 mg Documented by: PHYSICAL EXAMINATION: GENERAL: The patient is alert and oriented x3, not in any acute distress. Well developed, well nourished. HEENT: Pupils are round and equally reacting to light. EOMI. No scleral icterus. No conjunctival pallor. Normocephalic, atraumatic. No pharyngeal erythema. No thyromegaly. CARDIOVASCULAR: S1 and S2 present. No murmurs, rubs, or gallops. PULMONARY: Chest is clear to auscultation, no wheezing or crackles. ABDOMEN: Soft, nontender, nondistended, normoactive bowel sounds. No palpable organomegaly. MUSCULOSKELETAL: No joint swelling or deformity. EXTREMITIES: No cyanosis, clubbing, or pedal edema. bilateral leg pain, which is chronic NEUROLOGICAL: Gross neurological examination did not reveal any focal deficits. SKIN: No rashes. Assessment and plan: -Generalized weakness: Secondary to intervascular depletion from excessive diuretic therapy -Gait dysfunction -Severe hypokalemia, potassium 3.0 and will replace and repeat am labs -Acute renal failure: Secondary to excessive diuresis based and creatinine trending down -hypovolemic hyponatremia for which patient will continue gentle IV fluids -Congestive heart failure chronic systolic dysfunction with EF of around the 40- 45% along with right-sided heart failure and moderate pulmonary hypertension patient is hypovolemic, continue 2 hold diuretics for now -COPD and chronic hypercapnic respiratory failure uses 2-3 L of oxygen which will be continued -Hyperlipidemia -hypertension -Coronary artery disease -DVT prophylaxis: Subcutaneous heparin Plan: Continue patient on gentle IV hydration and nephrology following and recommend to continue with shahid and IV fluids for now with close monitoring. Potassium continues to be low and will replace and repeat am labs. k+ is 3.0 today. continue to hold diuretics for now. Will continue to monitor closely and discuss with nephrology about treatment plan and possibly going home with shahid and outpatient follow up or trial void. Patient is asking when he can go home. Possible discharge in 24 hours. Objective - Vital Signs Vital signs: Vital Signs Temp 97.5 F L 07/12/21 15:40 Pulse 89 07/12/21 15:40 Resp 16 07/12/21 15:40 BP 90/54 07/12/21 15:40 Pulse Ox 96 07/12/21 15:40 Intake & Output 07/11/21 07/12/21 07/12/21 18:59 06:59 18:59 Intake Total 444 891 Output Total 775 590 Balance 444 -775 301 Intake: Oral 444 891 Output: Urine 775 590 Other: Voiding Method Indwelling Catheter Indwelling Catheter Indwelling Catheter - Labs CBC & Chem 7: 07/12/21 06:20 07/12/21 06:20 Labs: Abnormal Lab Results - Last 24 Hours (Table) 07/11/21 07/12/21 07/12/21 Range/Units 19:33 06:20 06:20 RBC 3.83 L (4.30-5.90) m/uL Hgb 11.8 L (13.0-17.5) gm/dL Hct 36.8 L (39.0-53.0) % Sodium 134 L (137-145) mmol/L Potassium 3.3 L 3.0 L (3.5-5.1) mmol/L Chloride 92 L (98-107) mmol/L Carbon Dioxide 37 H (22-30) mmol/L BUN 21 H (9-20) mg/dL Glucose 124 H (74-99) mg/dL
[2021-07-13] MEDS: ALPRAZolam 0.25 MG TAB PO PRN (01:51)
[2021-07-13 06:29] LABS: Anion Gap 9 mmol/L; Blood Urea Nitrogen 18 mg/dL (9-20); Calcium 9.1 mg/dL (8.4-10.2); Carbon Dioxide 31 mmol/L (22-30); Chloride 93 mmol/L (98-107); Glucose 115 mg/dL (74-99); Potassium 3.8 mmol/L (3.5-5.1); Sodium 133 mmol/L (137-145)
[2021-07-13 06:30] LABS: African American GFR (CKD) >90 (>60 ml/min/1.73 sqM); Non-African American GFR(CKD) >90 (>60 ml/min/1.73 sqM)
[2021-07-13] MEDS: SYMBICORT 160-4.5 MCG INHALER INHALATION SCH (07:26)
[2021-07-13] MEDS: IPRATROPIUM-ALBUTEROL 3 ML NEB INHALATION SCH ×3 (07:26→15:35)
[2021-07-13] MEDS ORDERED: TAMSULOSIN 0.4 MG CAP.ER.24H PO SCH (08:30)
[2021-07-13] MEDS: METOPROLOL SUCCINATE (ER) 100 MG TAB.ER.24H PO SCH (08:45)
[2021-07-13] MEDS: SENNOSIDES 8.6 MG TAB PO SCH ×2 (08:45→08:53)
[2021-07-13] MEDS: CLOPIDOGREL 75 MG TAB PO SCH (08:45)
[2021-07-13] MEDS: ISOSORBIDE MONONITRATE ER 30 MG TAB.ER.24H PO SCH (08:45)
[2021-07-13] MEDS: RIVAROXABAN 20 MG TAB PO SCH (08:46)
[2021-07-13] MEDS: PREGABALIN 75 MG CAP PO SCH (08:46)
[2021-07-13 15:30] VITALS: BP 114/65; TEMP 97.8
[2021-07-13 15:45] VITALS: PULSE 90
--- NOTE | 2021-07-14 01:23 | P.DS ---
Providers Date of admission: 07/11/21 09:43 Expected date of discharge: 07/13/21 Attending physician: Maine Sears Consults: 07/09/21 13:38 Consult Physician Urgent Consulting Provider: Wandy Norman Consult Reason/Comments: uremia Do you want consulting provider notified?: Yes Primary care physician: [facility] Hospital Course: Final Diagnosis -Generalized weakness: Secondary to intervascular depletion from excessive diuretic therapy -Gait dysfunction -Severe hypokalemia, improved -Acute renal failure: Secondary to excessive diuresis -hypovolemic hyponatremia, improved -Congestive heart failure chronic systolic dysfunction with EF of around the 40- 45% along with right-sided heart failure and moderate pulmonary hypertension patient is hypovolemic -COPD and chronic hypercapnic respiratory failure uses 2-3 L of oxygen which will be continued -Hyperlipidemia -hypertension -Coronary artery disease -DVT prophylaxis -full code Discharge disposition Patient is being discharged in a stable condition with guarded prognosis to home. Patient will follow-up with pcp at the [facility] in the outpatient setting upon discharge. Patient is to also to follow up with nephrology Dr. Amador as scheduled. Hold diuretics on discharge for now and recommend repeat labs. Total time taken is greater than 35 minutes. Hospital course Patient is a 75-year-old male came in the with complaints of generalized weakness tiredness. She does have comparing of generalized weakness has been going on for about a week and half. Patient denied any fever chills patient denied dysuria patient denied orthopnea proximal nocturnal dyspnea patient had BNP that is a around thousand 1200. Patient does have history of cut his heart failure chronic systolic dysfunction EF of around 40-45% along with right-sided heart failure and a moderate pulmonary hypertension. Patient does use 2 L of oxygen at home. Wound to have acute renal failure baseline creatinine around 1 present creatinine is 1.5 along with the hyponatremia. Probably secondary to excessive diuresis patient does take Lasix and metolazone at home. Patient was started on gentle hydration. Chest x-ray did not show pulmonary edema. 07/10/2021 Patient is seen this morning in follow-up with no acute overnight issues noted. Patient states he feels slightly constipated and requesting something and will order fleets enema. Patient continues on gentle IV hydration creatinine improved at 1.1 along with BUN is 44.7. Potassium found a critically low at 2.5 and will replace per protocol. Sodium also improved at 138. Will continue IV hydration for now and replace potassium per protocol and repeat labs. Nephrology also following. Abdomen bladder ultrasound was ordered and pending. 07/11/2021 Patient is seen and evaluated today with at the bedside. Patient continues with IV fluids and indwelling shahid catheter. Nephrology following closely and will continue with shahid for now as patient was retaining. Patient requesting to have shahid removed. Sodium is improved and potassium continues to be low and will continue to replace per protocol and repeat am labs. Patient continues on 3L via NC and states he chronically uses this and denies any worsening shortness of breath. Patient denies chest pain or palpitations. Patient is afebrile. No reports of nausea or vomiting. Patient also inquiring about discharge. Patient reports to having a bowel movement last night. 07/12/2021 Patient is seen today and continues to be closely monitored by nephrology. Aggressively correcting potassium and is 3.0 today and will replace. continue with indwelling shahid for now. Patient ultrasound showed no hydronephrosis. Patient extremely anxious and would like to go home. Will discuss with neph rology about discharge planning and if shahid will be required on discharge with close outpatient follow up. No reports of chest pain or shortness of breath. Patient is afebrile. 07/13/2021 Patient is seen today in follow up and feeling better. Kidney functions improved and potassium is 3.8. Patient evaluated by nephrology and recommending close outpatient follow up and repeat labs to monitor electrolytes and kidney functions. Patient did have indwelling shahid catheter for retention of which he wanted removed and did void. Patient to continue flomax. Patient is requesting to go home. On exam vital signs are stable. Cardio S1, S2 are muffled. Respiratory system shows diminished breath sounds at the bases with no wheezing or rhonchi noted. Abdomen is soft and nontender. Nervous system shows no focal deficits. PHYSICAL EXAMINATION: GENERAL: The patient is alert and oriented x3, not in any acute distress. Well developed, well nourished. HEENT: Pupils are round and equally reacting to light. EOMI. No scleral icterus. No conjunctival pallor. Normocephalic, atraumatic. No pharyngeal erythema. No thyromegaly. CARDIOVASCULAR: S1 and S2 present. No murmurs, rubs, or gallops. PULMONARY: Chest is clear to auscultation, no wheezing or crackles. ABDOMEN: Soft, nontender, nondistended, normoactive bowel sounds. No palpable organomegaly. MUSCULOSKELETAL: No joint swelling or deformity. EXTREMITIES: No cyanosis, clubbing, or pedal edema. NEUROLOGICAL: Gross neurological examination did not reveal any focal deficits. SKIN: No rashes. Please refer to medication reconciliation sheet for a list of medications. Patient Condition at Discharge: Stable Plan - Discharge Summary Discharge Rx Participant: No New Discharge Prescriptions: New Tamsulosin [Flomax] 0.4 mg PO PC-BRKFST 30 Days #30 capsule Continue Pravastatin Sodium [Pravachol] 80 mg PO HS Montelukast [Singulair] 10 mg PO HS Isosorbide Mononitrate ER [Imdur] 30 mg PO DAILY Clopidogrel [Plavix] 75 mg PO DAILY #30 tab Omeprazole 40 mg PO BID Ipratropium-Albuterol Nebulize [Duoneb 0.5 mg-3 mg/3 ml Soln] 3 ml INHALATION RT-QID #120 ml Albuterol Inhaler [Ventolin Hfa Inhaler] 2 puff INHALATION RT-QID PRN PRN Reason: Shortness Of Breath Metoprolol Succinate (ER) [Toprol XL] 100 mg PO DAILY Rivaroxaban [Xarelto] 20 mg PO DAILY Amitriptyline HCl [Elavil] 10 mg PO HS Loratadine 10 mg PO DAILY Pregabalin [Lyrica] 200 mg PO TID Potassium Chloride ER [K-Dur 20] 20 meq PO BID Budesonide/Formoterol Fumarate [Symbicort 160-4.5 Mcg Inhaler] 2 puff INHALATION RT-BID Furosemide [Lasix] 40 mg PO BID Nitroglycerin Sl Tabs [Nitrostat] 0.4 mg SL Q5M PRN PRN Reason: Chest Pain Spironolactone [Aldactone] 25 mg PO DAILY Fluticasone/Salmeterol [Advair 500-50 Diskus] 1 puff INHALATION RT-BID Discontinued metOLazone [Zaroxolyn] 5 mg PO DAILY Discharge Medication List Pravastatin Sodium [Pravachol] 80 mg PO HS 12/18/13 [History] Isosorbide Mononitrate ER [Imdur] 30 mg PO DAILY 06/08/19 [History] Montelukast [Singulair] 10 mg PO HS 06/08/19 [History] Clopidogrel [Plavix] 75 mg PO DAILY #30 tab 06/11/19 [Rx] Omeprazole 40 mg PO BID 04/07/20 [History] Ipratropium-Albuterol Nebulize [Duoneb 0.5 mg-3 mg/3 ml Soln] 3 ml INHALATION RT-QID #120 ml 04/10/20 [Rx] Albuterol Inhaler [Ventolin Hfa Inhaler] 2 puff INHALATION RT-QID PRN 08/25/20 [History] Metoprolol Succinate (ER) [Toprol XL] 100 mg PO DAILY 08/25/20 [History] Amitriptyline HCl [Elavil] 10 mg PO HS 03/22/21 [History] Nitroglycerin Sl Tabs [Nitrostat] 0.4 mg SL Q5M PRN 03/22/21 [History] Rivaroxaban [Xarelto] 20 mg PO DAILY 03/22/21 [History] Fluticasone/Salmeterol [Advair 500-50 Diskus] 1 puff INHALATION RT-BID 06/13/21 [History] Loratadine 10 mg PO DAILY 06/13/21 [History] Pregabalin [Lyrica] 200 mg PO TID 06/13/21 [History] Spironolactone [Aldactone] 25 mg PO DAILY 06/13/21 [History] Budesonide/Formoterol Fumarate [Symbicort 160-4.5 Mcg Inhaler] 2 puff INHALATION RT-BID 07/09/21 [History] Furosemide [Lasix] 40 mg PO BID 07/09/21 [History] Potassium Chloride ER [K-Dur 20] 20 meq PO BID 07/09/21 [History] Tamsulosin [Flomax] 0.4 mg PO PC-BRKFST 30 Days #30 capsule 07/13/21 [Rx] Follow up Appointment(s)/Referral(s): Benitez Amador DO [STAFF PHYSICIAN] - 1 Week [facility] [Primary Care Provider] - 1-2 days Activity/Diet/Wound Care/Special Instructions: Activity Limited until follow-up Follow-up primary care provider upon discharge Continue holding diuretics until follow-up with nephrology in one week Continue with renal diet Discharge Disposition: HOME SELF-CARE
== END 2021-07-13 16:30 | disposition home or self-care (01) | DRG 683 ==
LOC: EC 10:49 → 6NMEDSUR 13:35 → OBSVTOIN 07-11 09:43
PROVIDERS: ADMIT Internal Medicine; ATTEND Internal Medicine
DX: N17.9 Acute kidney failure, unspecified (principal); E87.1 Hypo-osmolality and hyponatremia; I42.9 Cardiomyopathy, unspecified; I50.22 Chronic systolic (congestive) heart failure; J96.12 Chronic respiratory failure with hypercapnia; N13.8 Other obstructive and reflux uropathy; Z20.822 Contact with and (suspected) exposure to COVID-19; I11.0 Hypertensive heart disease with heart failure; R33.8 Other retention of urine; I95.9 Hypotension, unspecified; I50.82 Biventricular heart failure; N40.1 Benign prostatic hyperplasia with lower urinary tract symptoms; R53.1 Weakness; E11.40 Type 2 diabetes mellitus with diabetic neuropathy, unspecified; E78.5 Hyperlipidemia, unspecified; E86.1 Hypovolemia; E87.6 Hypokalemia; H91.90 Unspecified hearing loss, unspecified ear; I07.1 Rheumatic tricuspid insufficiency; I25.10 Atherosclerotic heart disease of native coronary artery without angina pectoris; T50.1X5A Adverse effect of loop [high-ceiling] diuretics, initial encounter; I25.2 Old myocardial infarction; I27.29 Other secondary pulmonary hypertension; I48.91 Unspecified atrial fibrillation; J44.9 Chronic obstructive pulmonary disease, unspecified; Z79.01 Long term (current) use of anticoagulants; Z79.02 Long term (current) use of antithrombotics/antiplatelets; Z79.51 Long term (current) use of inhaled steroids; Z79.899 Other long term (current) drug therapy; Z82.49 Family history of ischemic heart disease and other diseases of the circulatory system; Z86.73 Personal history of transient ischemic attack (TIA), and cerebral infarction without residual deficits; Z87.891 Personal history of nicotine dependence; Z95.1 Presence of aortocoronary bypass graft; Z95.5 Presence of coronary angioplasty implant and graft; Z96.1 Presence of intraocular lens; Z98.42 Cataract extraction status, left eye; Z98.41 Cataract extraction status, right eye; Z87.19 Personal history of other diseases of the digestive system; Z87.81 Personal history of (healed) traumatic fracture; X58.XXXA Exposure to other specified factors, initial encounter
CPT/HCPCS: 36415; 70450; 71046; 76770; 80048; 80053; 81003; 83605; 83735; 83880; 84100; 84132; 84439; 84443; 84481; 84484; 85025; 85610; 85730; 87635; 93005; 94640; 94760; 96374; 99285

== ENCOUNTER 2021-09-09 12:44 | Emergency (ER) | payer OTHER, MEDICARE ==
[2021-09-09 12:54] VITALS: TEMP 98
[2021-09-09] MEDS ORDERED: BACITRACIN OINT 1 EACH PACKET TOPICAL ONE (13:30)
[2021-09-09] MEDS ORDERED: LORazepam 2 MG/ML INJ IM STA (13:31)
[2021-09-09] MEDS ORDERED: BACITRACIN/POLYMYX 500-10,000 UNIT/GM OINT 14 GM TUBE TOPICAL STA (13:41)
--- NOTE | 2021-09-09 15:33 | CT ---
EXAMINATION TYPE: CT brain oscarine wo con DATE OF EXAM: 09/09/2021 COMPARISON: 07/09/2021 HISTORY: Fall. Loss of consciousness. CT DLP: 1371.6 mGycm Automated exposure control for dose reduction was used. Images obtained of the brain and cervical spine without contrast FINDINGS: There is cerebral cortical atrophy. There is no mass effect or midline shift. There is no sign of int racranial hemorrhage. The calvarium is intact. Skull base is intact. Cervical vertebra show some straightening. There is degenerative disc space narrowing at C4-5 and C5- 6 and C6-7 with spur formation. There is no compression fracture. Facet joints are intact. There is s light anterior subluxation of C3 in relation to C4. IMPRESSION: Mild cerebral atrophy. No acute intracranial abnormality. No change compared to old exam. Mild degenerative hypertrophic disc changes. No fracture seen. There is a minimal degenerative first degree C3-4 spondylolisthesis.
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
[2021-09-09 15:46] VITALS: BP 104/70; PULSE 71; RESP 18
== END 2021-09-09 15:52 | disposition home or self-care (01) ==
LOC: EC 12:44
DX: S41.112A Laceration without foreign body of left upper arm, initial encounter (principal); S41.111A Laceration without foreign body of right upper arm, initial encounter; I11.0 Hypertensive heart disease with heart failure; I50.9 Heart failure, unspecified; I48.91 Unspecified atrial fibrillation; I25.2 Old myocardial infarction; I25.10 Atherosclerotic heart disease of native coronary artery without angina pectoris; J44.9 Chronic obstructive pulmonary disease, unspecified; K21.9 Gastro-esophageal reflux disease without esophagitis; E78.5 Hyperlipidemia, unspecified; F41.9 Anxiety disorder, unspecified; Z87.891 Personal history of nicotine dependence; Z95.5 Presence of coronary angioplasty implant and graft; Z79.01 Long term (current) use of anticoagulants; Z79.02 Long term (current) use of antithrombotics/antiplatelets; Z79.51 Long term (current) use of inhaled steroids; Z79.899 Other long term (current) drug therapy; W07.XXXA Fall from chair, initial encounter
CPT/HCPCS: 72125; 70450; 99284; 96372; J2060

== ENCOUNTER 2021-09-09 17:24 | Inpatient (IN) | payer OTHER, MEDICARE ==
[2021-09-09] MEDS ORDERED: SODIUM CHLORIDE 0.9% 500 ML 500 ML IV STA (18:02)
[2021-09-09 18:55] LABS: Basophils # (A) 0.1 k/uL (0-0.2); Basophils % (A) 1 %; Eosinophils # (A) 0.2 k/uL (0-0.7); Eosinophils % (A) 2 %; HCT 33.9 % (39.0-53.0); HGB 10.6 gm/dL (13.0-17.5); Hypochromasia Marked; Lymphocytes # (A) 0.8 k/uL (1.0-4.8); Lymphocytes % (A) 9 %; MCH 29.8 pg (25.0-35.0); MCHC 31.3 g/dL (31.0-37.0); MCV 95.2 fL (80.0-100.0); Mean Platelet Volume 11.3; Monocytes # (A) 0.4 k/uL (0-1.0); Monocytes % (A) 5 %; Neutrophils # (A) 7.8 k/uL (1.3-7.7); Neutrophils % (A) 83 %; Platelet Count 166 k/uL (150-450); RBC 3.56 m/uL (4.30-5.90); RDW 15.8 % (11.5-15.5); WBC 9.5 k/uL (3.8-10.6)
[2021-09-09 19:03] LABS: Albumin 3.8 g/dL (3.5-5.0); Calcium 8.7 mg/dL (8.4-10.2); Magnesium 1.6 mg/dL (1.6-2.3); Potassium 4.2 mmol/L (3.5-5.1); Total Bilirubin 1.2 mg/dL (0.2-1.3); Total Protein 6.4 g/dL (6.3-8.2)
--- NOTE | 2021-09-09 19:10 | XR ---
EXAMINATION TYPE: XR chest 2V DATE OF EXAM: 09/09/2021 COMPARISON: 07/09/2021 HISTORY: Weakness TECHNIQUE: 2 views FINDINGS: There is some coarse linear density right upper lobe. There is coarsening of the interstiti al markings in both lung beckham. Heart size is normal. There is no obvious heart failure. There is sl ight blunting of the costophrenic angles. IMPRESSION: Scarring and atelectasis right upper lobe. Pulmonary fibrosis. No definite heart failure. Interstitial infiltrates increased slightly compared to old exam.
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
--- NOTE | 2021-09-09 19:41 | CT ---
EXAMINATION TYPE: CT brain cspine wo con DATE OF EXAM: 09/09/2021 COMPARISON: Today HISTORY: Fall. CT DLP: 1524.8 mGycm Automated exposure control for dose reduction was used. There is cerebral cortical atrophy. There is no mass effect or midline shift. There is no sign of int racranial hemorrhage. Calvarium is intact. Skull base appears intact. The cervical vertebra show very normal alignment. There is a minimal C3-4 subluxation of 2 to 3 mm. T here is degenerative disc space narrowing at C4-5 and C5-6 and C6-7. No fracture seen. There is minor hypertrophic facet arthropathy. IMPRESSION: Cerebral atrophy. No acute intracranial abnormality. Cervical spondylotic changes. No fracture. Brain and cervical spine not changed compared to exam earlier today.
[2021-09-09] MEDS ORDERED: IPRATROPIUM-ALBUTEROL 3 ML NEB INHALATION STA (21:52)
[2021-09-09] MEDS ORDERED: methylPREDNISolone SOD SUCCI 125 MG/2 ML VIAL IV STA (21:52)
[2021-09-09] MEDS ORDERED: ONDANSETRON 4 MG/2 ML VIAL IVP PRN (21:53)
[2021-09-09] MEDS ORDERED: NALOXONE 0.4 MG/ML 1 ML VIAL IV PRN (21:53)
[2021-09-09] MEDS: SODIUM CHLORIDE 0.9% 1,000 ML IV SCH (22:21)
[2021-09-09] MEDS ORDERED: TRANEXAMIC ACID 1,000 MG/10 ML VIAL IRRIGATION ONE (22:23)
[2021-09-09] MEDS ORDERED: GELATIN SPONGE,ABSORB (LARGE) 1 EACH SPONGE TOPICAL STA ×2 (22:36→22:38)
[2021-09-09] MEDS: LORazepam 2 MG/ML INJ IV PRN (23:03)
[2021-09-09 23:18] LABS: Amorphous Sediment,Urine Occasional /hpf; Appearance,Urine Cloudy (Clear); Bilirubin,Urine Negative (Negative); Blood,Urine Small (Negative); Color,Urine Yellow; Glucose,Urine (UA) Negative (Negative); Hyaline Casts,Urine 39 /lpf (0-2); Ketones,Urine Negative (Negative); Leukocyte Esterase,Urine Moderate (Negative); Mucus,Urine Rare /hpf; Nitrite,Urine Negative (Negative); Protein,Urine 1+ (Negative); RBC,Urine 3 /hpf (0-5); Specific Gravity,Urine 1.018 (1.001-1.035); Squamous Epithelial Cell,Urine 1 /hpf (0-4); Urobilinogen,Urine <2.0 mg/dL (<2.0); WBC,Urine 14 /hpf (0-5)
[2021-09-10] MEDS: methylPREDNISolone SOD SUCCI 125 MG/2 ML VIAL IV SCH ×2 (05:21→09:12)
[2021-09-10 05:31] LABS: Basophils % (A) 0 %; Eosinophils % (A) 0 %; HGB 10.8 gm/dL (13.0-17.5); Hypochromasia Marked; Lymphocytes # (A) 0.4 k/uL (1.0-4.8); Lymphocytes % (A) 6 %; MCH 30.3 pg (25.0-35.0); MCV 97.8 fL (80.0-100.0); Macrocytosis Slight; Mean Platelet Volume 10.5; Monocytes # (A) 0.1 k/uL (0-1.0); Monocytes % (A) 2 %; Neutrophils # (A) 6.2 k/uL (1.3-7.7); Neutrophils % (A) 91 %; Platelet Count 154 k/uL (150-450); RBC 3.58 m/uL (4.30-5.90); RDW 15.8 % (11.5-15.5); WBC 6.9 k/uL (3.8-10.6)
[2021-09-10 05:50] LABS: ALT 22 U/L (4-49); AST 45 U/L (17-59); African American GFR (CKD) >90 (>60 ml/min/1.73 sqM); Albumin 3.9 g/dL (3.5-5.0); Alkaline Phosphatase 86 U/L (38-126); Anion Gap 12 mmol/L; Blood Urea Nitrogen 18 mg/dL (9-20); Calcium 8.7 mg/dL (8.4-10.2); Carbon Dioxide 27 mmol/L (22-30); Chloride 95 mmol/L (98-107); Glucose 140 mg/dL (74-99); Magnesium 1.7 mg/dL (1.6-2.3); Non-African American GFR(CKD) 80 (>60 ml/min/1.73 sqM); Potassium 4.3 mmol/L (3.5-5.1); Sodium 134 mmol/L (137-145); Total Bilirubin 1.3 mg/dL (0.2-1.3); Total Protein 6.5 g/dL (6.3-8.2)
[2021-09-10] MEDS: LORazepam 2 MG/ML INJ IV PRN (07:06)
[2021-09-10] MEDS ORDERED: ALBUTEROL NEBULIZED 2.5 MG/3 ML INHALATION SCH (08:00)
[2021-09-10] MEDS: SODIUM CHLORIDE 0.9% 1,000 ML IV SCH (09:11)
[2021-09-10] MEDS ORDERED: IPRATROPIUM-ALBUTEROL 3 ML NEB INHALATION PRN (10:25)
[2021-09-10] MEDS: ISOSORBIDE MONONITRATE ER 30 MG TAB.ER.24H PO SCH (11:16)
[2021-09-10] MEDS: RIVAROXABAN 20 MG TAB PO SCH (11:16)
[2021-09-10] MEDS: PANTOPRAZOLE 40 MG TABLET PO SCH ×2 (11:16→17:21)
[2021-09-10] MEDS: PREGABALIN 100 MG CAP PO SCH ×3 (11:16→20:20)
[2021-09-10] MEDS: IPRATROPIUM-ALBUTEROL 3 ML NEB INHALATION SCH ×3 (11:54→19:23)
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
[2021-09-10] MEDS: MORPHINE SULFATE 4 MG/ML SYRINGE IV PRN ×2 (12:47→20:29)
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
--- NOTE | 2021-09-10 15:51 | EEG ---
ELECTROENCEPHALOGRAM REPORT DATE OF SERVICE: 09/10/2021. CLINICAL HISTORY: This is a 76-year-old gentleman who presented to the emergency department because of recurrent falls; unclear if the patient had loss of consciousness or not. The video EEG is obtained to evaluate for seizure epileptiform activity. RELEVANT MEDICATION: The patient is not on any antiepileptic drugs. EEG TYPE: A routine 21-channel EEG performed with video using the 10/20 electrode placement system. DESCRIPTION: Only wakefulness is obtained. During the awake state, the posterior-dominant rhythm consists of low to moderate voltage that is well modulated, well sustained of 8.5-9 hertz activity. There is no physiological sleep architecture. There is no focal slowing. There is moderate to significant myogenic artifact over the right hemisphere. Interictal and ictal is none. ACTIVATION PROCEDURE: Photic stimulation did not evoke a posterior driving response. There is no abnormality during the photic stimulation. Hyperventilation is not performed. CLINICAL INTERPRETATION: This is a normal routine EEG. There is no focal slowing, epileptiform discharges or seizure on the EEG. Clinical correlation is recommended. WALLY / CARMELO: [id number] / MTDD
--- NOTE | 2021-09-10 18:32 | US ---
EXAMINATION TYPE: US carotid duplex BILAT DATE OF EXAM: 09/10/2021 COMPARISON: NONE CLINICAL HISTORY: syncope. Syncope EXAM MEASUREMENTS: RIGHT: Peak Systolic Velocity (PSV) cm/sec ----- Right CCA: 80.8 ----- Right ICA: 111.0 ----- Right ECA: 121.0 ICA/CCA ratio: 1.37 RIGHT: End Diastole cm/sec ----- Right CCA: 17.8 ----- Right ICA: 19.4 ----- Right ECA: 10.0 LEFT: Peak Systolic Velocity (PSV) cm/sec ----- Left CCA: 79.7 ----- Left ICA: 77.0 ----- Left ECA: 109.0 ICA/CCA ratio: 0.97 LEFT: End Diastole cm/sec ----- Left CCA: 18.1 ----- Left ICA: 24.1 ----- Left ECA: 10.7 VERTEBRALS (direction of flow): Right Vertebral: Antegrade Left Vertebral: Antegrade Rhythm: Arrhythmia Moderate plaque formation noted throughout bilateral carotid arteries. No evidence of significant lyndsey nosis. Difficult exam due to patient heavy breathing and body habitus IMPRESSION: There is antegrade flow in the vertebral arteries. The images and measurements suggest less than 50% stenosis in both internal carotid arteries. Criteria for Assigning % of Stenosis / Diameter reduction (Estimation based on the indirect measurements of the internal carotid artery velocities (ICA PSV). 1. Normal (no stenosis)=ICA PSV < 125 cm/s: ratio < 2.0: ICA EDV<40 cm/s. 2. Less than 50% stenosis=ICA PSV < 125 cm/s: ratio < 2.0: ICA EDV<40 cm/s. 3. 50 to 69% stenosis=ICA PSV of 125 to 230 cm/s: ration 2.0 ? 4.0: ICA EDV 40-100 cm/s. 4. Greater than 70% stenosis to near occlusion= ICA PSV > 230 cm/s: ratio > 4.0: ICA EDV > 100 cm/s. 5. Near occlusion= ICA PSV velocities may be low or undetectable: variable ratio and ICA EDV. 6. Total occlusion=unable to detect flow.
[2021-09-10] MEDS ORDERED: AMITRIPTYLINE HCL 10 MG TAB PO SCH (21:00)
[2021-09-10] MEDS ORDERED: PRAVASTATIN SODIUM 80 MG TAB PO SCH (21:00)
[2021-09-11 05:04] LABS: Folate, Serum 8.2 ng/mL (4.40-31.00)
[2021-09-11] MEDS: PANTOPRAZOLE 40 MG TABLET PO SCH (06:42)
[2021-09-11] MEDS: IPRATROPIUM-ALBUTEROL 3 ML NEB INHALATION SCH ×2 (07:29→10:54)
[2021-09-11] MEDS: ISOSORBIDE MONONITRATE ER 30 MG TAB.ER.24H PO SCH (08:50)
[2021-09-11] MEDS: RIVAROXABAN 20 MG TAB PO SCH (08:50)
[2021-09-11] MEDS: PREGABALIN 100 MG CAP PO SCH (08:51)
[2021-09-11] MEDS ORDERED: CLOPIDOGREL 75 MG TAB PO SCH (09:00)
[2021-09-11] MEDS ORDERED: METOPROLOL SUCCINATE (ER) 100 MG TAB.ER.24H PO SCH (09:00)
[2021-09-11] MEDS ORDERED: CHOLECALCIFEROL 25 MCG (1000 IU) TABLET PO SCH (09:00)
[2021-09-11] MEDS ORDERED: ESCITALOPRAM 10 MG TAB PO SCH (09:00)
--- NOTE | 2021-09-11 10:05 | ECHOF ---
Referral Reason:syncope MEASUREMENTS -------- HEIGHT: 182.9 cm WEIGHT: 114.8 kg BP: RVIDd: 3.9 cm (< 3.3) IVSd: 1.1 cm (0.6 - 1.1) LVIDd: 4.2 cm (3.9 - 5.3) LVPWd: 1.5 cm (0.6 - 1.1) IVSs: 1.8 cm LVIDs: 3.0 cm LVPWs: 2.0 cm Ao Diam: 3.7 cm (2.0 - 3.7) AV Cusp: 2.1 cm (1.5 - 2.6) LA Diam: 3.9 cm (2.7 - 3.8) AR PHT: 335 ms RAP: 5.00 mmHg RVSP: 43.86 mmHg FINDINGS -------- Atrial fibrillation. This was a technically adequate study. The left ventricular size is normal. There is mild concentric left ventricular hypertrophy. Overa ll left ventricular systolic function is low-normal with, an EF between 50 - 55 %. The right ventricle is mild to moderately enlarged. The left atrial size is normal. The right atrial size is normal. The aortic valve is trileaflet and appears structurally normal. Trace amount of aortic regurgitatio n. The mitral valve is normal. There is trace mitral regurgitation. The tricuspid valve appears structurally normal. Mild tricuspid regurgitation present. There is m ild pulmonary hypertension. The right ventricular systolic pressure, as measured by Doppler, is 43. 86mmHg. There is no pulmonic regurgitation present. The aortic root size is normal. IVC Not well visulized. There is no pericardial effusion. CONCLUSIONS -------- 1. The left ventricular size is normal. 2. There is mild concentric left ventricular hypertrophy. 3. Overall left ventricular systolic function is low-normal with, an EF between 50 - 55 %. 4. Trace amount of aortic regurgitation. 5. There is trace mitral regurgitation. 6. Mild tricuspid regurgitation present. 7. There is mild pulmonary hypertension. 8. The right ventricular systolic pressure, as measured by Doppler, is 43.86mmHg. 9. There is no pericardial effusion. HEALTH SANITARIAN: Lexus Woods RDCS
[2021-09-11] MEDS ORDERED: ALBUTEROL NEBULIZED 2.5 MG/3 ML INHALATION PRN (11:44)
[2021-09-11] MEDS ORDERED: NITROGLYCERIN SL TABS 0.4 MG TAB SUBLINGUAL PRN (11:44)
[2021-09-11] MEDS ORDERED: LORATADINE 10 MG TAB PO PRN (11:44)
[2021-09-11 11:48] VITALS: TEMP 97.4
[2021-09-11] MEDS ORDERED: IPRATROPIUM-ALBUTEROL 3 ML NEB INHALATION SCH (12:00)
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
[2021-09-11] MEDS: MORPHINE SULFATE 4 MG/ML SYRINGE IV PRN (12:13)
[2021-09-11] MEDS ORDERED: HYDROcodone/APAP 7.5-325MG 1 EACH TAB PO PRN (12:24)
[2021-09-11] MEDS ORDERED: FUROSEMIDE 10 MG/ML 4 ML VIAL IV STA (12:24)
[2021-09-11] MEDS ORDERED: ALPRAZolam 0.25 MG TAB PO PRN (12:25)
[2021-09-11 13:07] VITALS: BP 120/88; PULSE 101; RESP 18
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
[2021-09-11] MEDS ORDERED: FUROSEMIDE 40 MG TAB PO SCH (16:00)
[2021-09-11] MEDS ORDERED: SYMBICORT 160-4.5 MCG INHALER INHALATION SCH (20:00)
[2021-09-11] MEDS ORDERED: POTASSIUM CHLORIDE ER 20 MEQ TAB.ER PO SCH (21:00)
[2021-09-12] MEDS ORDERED: SPIRONOLACTONE 25 MG TAB PO SCH (09:00)
== END 2021-09-11 15:15 | DRG 312 ==
LOC: EC 17:24 → 3SCARD 21:51
PROVIDERS: ADMIT Hospitalist; ATTEND Hospitalist
DX: I95.1 Orthostatic hypotension (principal); I50.23 Acute on chronic systolic (congestive) heart failure; E87.1 Hypo-osmolality and hyponatremia; I69.351 Hemiplegia and hemiparesis following cerebral infarction affecting right dominant side; J44.1 Chronic obstructive pulmonary disease with (acute) exacerbation; J96.11 Chronic respiratory failure with hypoxia; J98.11 Atelectasis; I48.20 Chronic atrial fibrillation, unspecified; W19.XXXA Unspecified fall, initial encounter; I11.0 Hypertensive heart disease with heart failure; D64.9 Anemia, unspecified; E66.9 Obesity, unspecified; E78.5 Hyperlipidemia, unspecified; E86.0 Dehydration; F41.9 Anxiety disorder, unspecified; G47.33 Obstructive sleep apnea (adult) (pediatric); G62.9 Polyneuropathy, unspecified; H91.90 Unspecified hearing loss, unspecified ear; I25.10 Atherosclerotic heart disease of native coronary artery without angina pectoris; I25.2 Old myocardial infarction; I27.20 Pulmonary hypertension, unspecified; I65.23 Occlusion and stenosis of bilateral carotid arteries; K21.9 Gastro-esophageal reflux disease without esophagitis; J84.10 Pulmonary fibrosis, unspecified; I69.312 Visuospatial deficit and spatial neglect following cerebral infarction; Z68.32 Body mass index [BMI] 32.0-32.9, adult; G31.89 Other specified degenerative diseases of nervous system; M50.323 Other cervical disc degeneration at C6-C7 level; I08.3 Combined rheumatic disorders of mitral, aortic and tricuspid valves; R29.6 Repeated falls; M47.812 Spondylosis without myelopathy or radiculopathy, cervical region; Z79.01 Long term (current) use of anticoagulants; Z79.02 Long term (current) use of antithrombotics/antiplatelets; Z79.899 Other long term (current) drug therapy; Z82.49 Family history of ischemic heart disease and other diseases of the circulatory system; Z87.01 Personal history of pneumonia (recurrent); Z86.79 Personal history of other diseases of the circulatory system; Z87.828 Personal history of other (healed) physical injury and trauma; Z87.891 Personal history of nicotine dependence; Z91.19 Patient's noncompliance with other medical treatment and regimen; Z91.81 History of falling; Z95.1 Presence of aortocoronary bypass graft; Z95.5 Presence of coronary angioplasty implant and graft; Z96.1 Presence of intraocular lens; Z99.81 Dependence on supplemental oxygen; Z87.19 Personal history of other diseases of the digestive system; Z88.8 Allergy status to other drugs, medicaments and biological substances; Z98.42 Cataract extraction status, left eye; Z98.41 Cataract extraction status, right eye; Y92.009 Unspecified place in unspecified non-institutional (private) residence as the place of occurrence of the external cause
CPT/HCPCS: 36415; 70450; 71046; 72125; 80053; 81001; 82607; 82746; 83036; 83735; 84100; 84484; 85025; 85379; 93005; 93306; 93880; 94640; 95816; 96361; 96374; 99285

== ENCOUNTER 2021-09-21 11:55 | Inpatient (IN) | payer OTHER, MEDICARE ==
[2021-09-21] MEDS ORDERED: IPRATROPIUM-ALBUTEROL 3 ML NEB INHALATION STA (12:17)
[2021-09-21 12:37] LABS: Anisocytosis Slight; Basophils % (A) 0 %; Eosinophils # (A) 0.1 k/uL (0-0.7); Eosinophils % (A) 1 %; HCT 32.8 % (39.0-53.0); Hypochromasia Marked; Lymphocytes # (A) 0.8 k/uL (1.0-4.8); Lymphocytes % (A) 8 %; MCH 28.9 pg (25.0-35.0); MCHC 30.6 g/dL (31.0-37.0); MCV 94.4 fL (80.0-100.0); Mean Platelet Volume 10.3; Monocytes # (A) 0.3 k/uL (0-1.0); Monocytes % (A) 3 %; Neutrophils # (A) 8.4 k/uL (1.3-7.7); Neutrophils % (A) 87 %; Platelet Count 237 k/uL (150-450); Poikilocytosis Slight; RBC 3.48 m/uL (4.30-5.90); RDW 16.4 % (11.5-15.5); WBC 9.7 k/uL (3.8-10.6)
[2021-09-21 12:47] LABS: ALT 24 U/L (4-49); AST 32 U/L (17-59); African American GFR (CKD) >90 (>60 ml/min/1.73 sqM); Albumin 3.8 g/dL (3.5-5.0); Alkaline Phosphatase 93 U/L (38-126); Anion Gap 6 mmol/L; Blood Urea Nitrogen 29 mg/dL (9-20); Carbon Dioxide 32 mmol/L (22-30); Chloride 96 mmol/L (98-107); Glucose 102 mg/dL (74-99); INR 1.4 (<1.2); Magnesium 1.8 mg/dL (1.6-2.3); Non-African American GFR(CKD) 84 (>60 ml/min/1.73 sqM); Partial Thromboplastin Time 26.3 sec (22.0-30.0); Potassium 4.7 mmol/L (3.5-5.1); Prothrombin Time 14.7 sec (9.0-12.0); Sodium 134 mmol/L (137-145); Total Bilirubin 0.8 mg/dL (0.2-1.3); Total Protein 6.6 g/dL (6.3-8.2)
--- NOTE | 2021-09-21 12:49 | XR ---
EXAMINATION TYPE: XR chest 2V DATE OF EXAM: 09/21/2021 COMPARISON: Chest x-ray and CT dated 09/09/[address] 03/02/2019 HISTORY: Difficulty breathing, shortness of breath TECHNIQUE: Frontal and lateral views of the chest are obtained. FINDINGS: Patient is post median sternotomy. There is no evident pneumothorax. There is a scarring a gain noted within the lungs. Interstitium is increased. Persistent blunting the costophrenic angles i s noted. There are overlying leads. Lung volumes are low. There is underlying emphysema, flattening t he hemidiaphragms and increased AP diameter of the chest are consistent with underlying COPD. Cardiac mediastinal silhouette is stable, there are prominent epicardial fat pads. IMPRESSION: Possible effusions, correlate for possible interstitial edema versus pulmonary fibrosis, there is underlying scarring suspected, patient with known emphysema.
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
[2021-09-21] MEDS ORDERED: methylPREDNISolone SOD SUCCI 125 MG/2 ML VIAL IV STA (14:02)
[2021-09-21] MEDS ORDERED: FUROSEMIDE 10 MG/ML 4 ML VIAL IV STA (14:02)
[2021-09-21] MEDS ORDERED: IPRATROPIUM-ALBUTEROL 3 ML NEB INHALATION PRN (14:44)
[2021-09-21 17:28] LABS: Glucose,Whole Blood 142 mg/dL (75-99)
[2021-09-21] MEDS: methylPREDNISolone SOD SUCCI 125 MG/2 ML VIAL IV SCH (17:57)
[2021-09-21] MEDS: INSULIN ASPART (NovoLOG) 100 UNIT/ML VIAL SQ SCH ×2 (17:58→21:27)
[2021-09-21] MEDS: FUROSEMIDE 10 MG/ML 4 ML VIAL IV SCH (17:58)
--- NOTE | 2021-09-21 18:55 | HP ---
HISTORY AND PHYSICAL CHIEF COMPLAINT: Shortness of breath and cough. HISTORY OF PRESENT ILLNESS: This 76-year-old gentleman with a past medical history of atrial fibrillation, history of CAD, COPD, [facility]. The patient has complaints of cough and shortness of breath for the past several days and was put on antibiotics for presumed pneumonia, but because of lack of improvement, patient came to [facility] and admitted to the hospital for evaluation and treatment. Chest x- ray showed possible evidence of congestive heart failure. NT proBNP is elevated. Patient also has some bilateral leg edema also. There is no history of any fever, rigor or chills at this time. Patient is vaccinated against COVID. PAST MEDICAL HISTORY: History of atrial fibrillation, CHF, COPD. The rest was reviewed. HOME MEDICATIONS: Reviewed, which include DuoNeb, Xanax, Elavil. Doses and other medications also reviewed. ALLERGIES: REQUIP. FAMILY HISTORY: History of dementia, myocardial infarction. SOCIAL HISTORY: Previous history of smoking, history of alcohol previously. REVIEW OF SYSTEMS: 14-point review is negative except mentioned previously. PHYSICAL EXAMINATION: Pulse is 84, blood pressure 111/70, respiration 18, pulse ox 100 percent on nasal cannula. HEENT: Conjunctivae normal. Oral mucosa moist. NECK is obese. CARDIOVASCULAR: S1, S2 muffled. Ejection systolic murmur present. RESPIRATION: Breath sounds diminished in the bases. Bilateral scattered rhonchi and crackles. Expiratory wheezing. Breathing efforts increased. ABDOMEN: Soft, obese, nontender. No mass palpable. LEGS: Bilateral leg edema, pitting. SKIN: No rash, no ulcers. JOINTS: No active deforming arthropathy. LYMPHATICS: No lymph nodes palpable in the neck, axillae or groin. LAB: WBC 9.2, hemoglobin is 10. INR is 1.4. Sodium 134, potassium 4.2. ASSESSMENT: 1. Shortness of breath, possible congestive heart failure acute exacerbation. 2. Possible pneumonia. 3. History of atrial fibrillation. 4. History of chronic obstructive pulmonary disease. 5. History of cerebrovascular accident/ transient ischemic attack. RECOMMENDATIONS AND DISCUSSION: In this 76-year-old gentleman who presented with multiple complex medical issues, we will initiate IV diuretics and consult Cardiology. Resume the home medication, bronchodilators. Otherwise Pulmonary also will be consulted for COPD and possible pneumonia. COVID testing was also requested. See orders for details. Medication will be reconciled. The prognosis guarded because of multiple complex medical issues. MMODL / IJN: [id number] /
[2021-09-21] MEDS: IPRATROPIUM-ALBUTEROL 3 ML NEB INHALATION SCH ×2 (19:15→19:30)
[2021-09-21] MEDS: SYMBICORT 160-4.5 MCG INHALER INHALATION SCH (19:29)
[2021-09-21 21:07] LABS: Glucose,Whole Blood 164 mg/dL (75-99)
[2021-09-21] MEDS: ALPRAZolam 0.25 MG TAB PO SCH (21:27)
[2021-09-21] MEDS: TAMSULOSIN 0.4 MG CAP.ER.24H PO SCH (21:27)
[2021-09-21] MEDS: POTASSIUM CHLORIDE ER 20 MEQ TAB.ER PO SCH (21:27)
[2021-09-21] MEDS: PREGABALIN 100 MG CAP PO SCH (21:27)
[2021-09-21] MEDS: PRAVASTATIN SODIUM 80 MG TAB PO SCH (21:28)
[2021-09-21] MEDS: ESCITALOPRAM 10 MG TAB PO SCH (21:28)
[2021-09-21] MEDS: AMITRIPTYLINE HCL 10 MG TAB PO SCH (21:28)
[2021-09-21] MEDS: OSELTAMIVIR 75 MG CAP PO SCH (21:28)
[2021-09-22] MEDS: HYDROcodone/APAP 7.5-325MG 1 EACH TAB PO PRN (00:04)
[2021-09-22] MEDS: PANTOPRAZOLE 40 MG TABLET PO SCH (06:10)
[2021-09-22] MEDS: ALPRAZolam 0.25 MG TAB PO SCH ×3 (06:10→21:37)
[2021-09-22] MEDS: PREGABALIN 100 MG CAP PO SCH ×3 (06:10→21:37)
[2021-09-22] MEDS: methylPREDNISolone SOD SUCCI 125 MG/2 ML VIAL IV SCH ×5 (06:27→23:57)
[2021-09-22 07:22] LABS: Appearance,Urine Clear (Clear); Bilirubin,Urine Negative (Negative); Blood,Urine Negative (Negative); Color,Urine Yellow; Glucose,Urine (UA) Negative (Negative); Ketones,Urine Negative (Negative); Leukocyte Esterase,Urine Negative (Negative); Nitrite,Urine Negative (Negative); PH, Urine 5.5 (5.0-8.0); Protein,Urine Negative (Negative); Specific Gravity,Urine 1.013 (1.001-1.035); Urobilinogen,Urine <2.0 mg/dL (<2.0)
[2021-09-22 07:45] LABS: Glucose,Whole Blood 135 mg/dL (75-99)
[2021-09-22] MEDS: CLOPIDOGREL 75 MG TAB PO SCH (08:13)
[2021-09-22] MEDS: FUROSEMIDE 10 MG/ML 4 ML VIAL IV SCH ×4 (08:13→23:57)
[2021-09-22] MEDS: ISOSORBIDE MONONITRATE ER 30 MG TAB.ER.24H PO SCH (08:13)
[2021-09-22] MEDS: CHOLECALCIFEROL 25 MCG (1000 IU) TABLET PO SCH (08:13)
[2021-09-22] MEDS: POTASSIUM CHLORIDE ER 20 MEQ TAB.ER PO SCH ×2 (08:13→21:37)
[2021-09-22] MEDS: SPIRONOLACTONE 25 MG TAB PO SCH (08:13)
[2021-09-22] MEDS: INSULIN ASPART (NovoLOG) 100 UNIT/ML VIAL SQ SCH ×4 (08:13→21:37)
[2021-09-22] MEDS: RIVAROXABAN 20 MG TAB PO SCH (08:14)
[2021-09-22] MEDS: OSELTAMIVIR 75 MG CAP PO SCH ×2 (08:14→21:38)
[2021-09-22] MEDS: METOPROLOL SUCCINATE (ER) 100 MG TAB.ER.24H PO SCH (08:14)
[2021-09-22] MEDS: IPRATROPIUM-ALBUTEROL 3 ML NEB INHALATION SCH ×4 (08:47→21:07)
[2021-09-22] MEDS: SYMBICORT 160-4.5 MCG INHALER INHALATION SCH ×2 (08:47→21:07)
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
[2021-09-22 11:40] LABS: African American GFR (CKD) 86.6 (60.0-200.0); Albumin 3.7 g/dL (3.8-4.9); Albumin/Globulin Ratio 1.8 (1.60-3.17); Anion Gap 14.9 mmol/L (10.00-18.00); BUN/Creat Ratio 28.56 Ratio (12.00-20.00); Blood Urea Nitrogen 28.1 mg/dL (9.0-27.0); Calcium 8.9 mg/dL (8.7-10.3); Carbon Dioxide 28.1 mmol/L (20.0-27.5); Globulin 2.1 g/dL (1.6-3.3); Non-African American GFR(CKD) 74.7 (60.0-200.0); Potassium 4.3 mmol/L (3.5-5.5); Total Bilirubin 0.5 mg/dL (0.30-1.20); Total Protein 5.8 g/dL (6.2-8.2)
[2021-09-22 12:05] LABS: Glucose,Whole Blood 146 mg/dL (75-99)
[2021-09-22 14:39] LABS: Basophils # (A) 0.01 X 10*3/uL (0.00-0.10); Basophils % (A) 0.2 %; Eosinophils # (A) 0 X 10*3/uL (0.04-0.35); Eosinophils % (A) 0 %; HCT 30.6 % (39.6-50.0); Immature Grans, Automated 0.3 %; Lymphocytes # (A) 0.46 X 10*3/uL (0.90-5.00); Lymphocytes % (A) 7.2 %; MCH 27.9 pg (27.0-32.0); MCHC 29.4 g/dL (32.0-37.0); MCV 94.7 fL (80.0-97.0); Mean Platelet Volume 13.5 fL (9.5-12.2); Monocytes # (A) 0.15 X 10*3/uL (0.20-1.00); Monocytes % (A) 2.3 %; NRBC Per 100 WBC 0 /100 WBCS (0.0-0.0); Neutrophils # (A) 5.78 X 10*3/uL (1.80-7.70); Platelet Count 238 X 10*3/uL (140-440); RBC 3.23 X 10*6/uL (4.40-5.60); RDW 16.9 % (11.5-14.5); WBC 6.42 X 10*3/uL (4.50-10.00)
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
[2021-09-22 17:20] LABS: Glucose,Whole Blood 133 mg/dL (75-99)
--- NOTE | 2021-09-22 20:44 | PN ---
PROGRESS NOTE DATE OF SERVICE: 09/22/2021 This 75-year-old gentleman admitted with shortness of breath and cough has got possibly congestive heart failure acute exacerbation. Patient also had possible pneumonia and flu B is also possibly. Patient is being closely monitored. Infectious Disease has been consulted and the patient started on Tamiflu, Multiple consultants are following the patient closely. PAST MEDICAL HISTORY: Reviewed. REVIEW OF SYSTEMS: Cardiovascular: As mentioned earlier. Respiratory: As mentioned earlier. GI: No nausea. : No dysuria. CURRENT MEDICATIONS: Reviewed include DuoNeb, Xanax, Elavil. The doses and rest of medications are noted. PHYSICAL EXAMINATION: Pulse 76, blood pressure 103/75, respiration 18. HEENT: Conjunctivae normal. Oral mucosa moist. NECK: No jugular venous distention. No lymph node enlargement. CARDIOVASCULAR: S1, S2, muffled. No S3, no S4, RESPIRATORY: Diminished breath sounds at the bases. A few scattered rhonchi and crackles. ABDOMEN: Soft, obese. NERVOUS SYSTEM: No focal deficits. LAB STUDIES: Sodium 133, hemoglobin 9. Other labs are noted. The influenza B is positive but Covid- 19 is negative. ASSESSMENT: 1. Shortness of breath, possible congestive heart failure acute exacerbation. 2. Influenza B positive. 3. Possible pneumonia. 4. History of atrial fibrillation. 5. Chronic obstructive pulmonary disease. 6. History of cerebrovascular accident/transient ischemic attack. RECOMMENDATIONS: Recommend to continue current medications, continue symptomatic treatment. Continue bronchodilators. Continue the Tamiflu. Otherwise, the patient is also on diuretics as well. Monitor the creatinine closely. Repeat chest x-ray in the morning. Further recommendations to follow. MMODL / IJN: [id number] /
[2021-09-22 21:18] LABS: Glucose,Whole Blood 140 mg/dL (75-99)
[2021-09-22] MEDS: TAMSULOSIN 0.4 MG CAP.ER.24H PO SCH (21:37)
[2021-09-22] MEDS: AMITRIPTYLINE HCL 10 MG TAB PO SCH (21:38)
[2021-09-22] MEDS: PRAVASTATIN SODIUM 80 MG TAB PO SCH (21:38)
[2021-09-22] MEDS: ESCITALOPRAM 10 MG TAB PO SCH (21:38)
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
[2021-09-23] MEDS: methylPREDNISolone SOD SUCCI 125 MG/2 ML VIAL IV SCH ×3 (05:49→17:55)
[2021-09-23] MEDS: PANTOPRAZOLE 40 MG TABLET PO SCH (05:49)
[2021-09-23] MEDS: ALPRAZolam 0.25 MG TAB PO SCH ×3 (05:49→21:55)
[2021-09-23] MEDS: PREGABALIN 100 MG CAP PO SCH ×3 (05:49→21:55)
--- NOTE | 2021-09-23 06:54 | XR ---
EXAMINATION TYPE: XR chest 1V portable DATE OF EXAM: 09/23/2021 COMPARISON: 09/21/2021 HISTORY: Follow-up CHF TECHNIQUE: Single frontal view of the chest is obtained. FINDINGS: No change in the marked cardiomegaly, pulmonary vascular congestion and diffuse interstiti al edema. No change in the coarse linear opacity in the right upper lobe consistent with scar atelect asis. There are probable small pleural effusions. There is no pneumothorax. There has been prior CABG surge ry with median sternotomy wires. IMPRESSION: No significant interval change in the acute cardiopulmonary disease most consistent with CHF.
[2021-09-23 07:26] LABS: Glucose,Whole Blood 141 mg/dL (75-99)
[2021-09-23] MEDS: IPRATROPIUM-ALBUTEROL 3 ML NEB INHALATION SCH ×4 (07:53→20:37)
[2021-09-23] MEDS: SYMBICORT 160-4.5 MCG INHALER INHALATION SCH ×2 (07:53→20:37)
[2021-09-23] MEDS: OSELTAMIVIR 75 MG CAP PO SCH ×2 (08:07→21:55)
[2021-09-23] MEDS: CHOLECALCIFEROL 25 MCG (1000 IU) TABLET PO SCH (08:08)
[2021-09-23] MEDS: POTASSIUM CHLORIDE ER 20 MEQ TAB.ER PO SCH ×2 (08:08→21:55)
[2021-09-23] MEDS: SPIRONOLACTONE 25 MG TAB PO SCH (08:08)
[2021-09-23] MEDS: CLOPIDOGREL 75 MG TAB PO SCH (08:08)
[2021-09-23] MEDS: ISOSORBIDE MONONITRATE ER 30 MG TAB.ER.24H PO SCH (08:08)
[2021-09-23] MEDS: RIVAROXABAN 20 MG TAB PO SCH (08:08)
[2021-09-23] MEDS: INSULIN ASPART (NovoLOG) 100 UNIT/ML VIAL SQ SCH ×4 (08:08→21:54)
[2021-09-23] MEDS: METOPROLOL SUCCINATE (ER) 100 MG TAB.ER.24H PO SCH (08:08)
[2021-09-23] MEDS: FUROSEMIDE 10 MG/ML 4 ML VIAL IV SCH ×2 (08:11→16:28)
[2021-09-23 11:51] LABS: African American GFR (CKD) 82.9 (60.0-200.0); Albumin/Globulin Ratio 1.89 (1.60-3.17); Anion Gap 13.5 mmol/L (10.00-18.00); BUN/Creat Ratio 33.14 Ratio (12.00-20.00); Blood Urea Nitrogen 33.8 mg/dL (9.0-27.0); Carbon Dioxide 30.6 mmol/L (20.0-27.5); Globulin 2.1 g/dL (1.6-3.3); Non-African American GFR(CKD) 71.6 (60.0-200.0); Potassium 4.4 mmol/L (3.5-5.5); Total Bilirubin 0.5 mg/dL (0.30-1.20); Total Protein 6.1 g/dL (6.2-8.2)
--- NOTE | 2021-09-23 11:56 | P.PN ---
Subjective Patient is admitted to hospital with COPD and CHF exacerbations probably precipitated by influenza infection. This morning patient is feeling much b jose angel. Shortness of breath has improved. Leg edema has improved. On exam comfortable at rest heart rate is 80 bpm blood pressure is 140/84 respirators 18 there is a jugular venous distention carotid upstroke is normal chest exam reveals bilateral rhonchi that have improved from yesterday abdomen is soft examination extremities did not reveal any edema per for pulses are felt Labs show potassium of 4.4 creatinine is 1 hemoglobin is 9 Assessment and plan: Shortness of breath secondary to CHF and COPD exacerbations Patient will continue the IV Lasix and nebulizers. We'll switch him to by mouth Lasix tomorrow. Objective - Vital Signs Vital signs: Vital Signs Temp 97.9 F 09/23/21 05:30 Pulse 80 09/23/21 11:36 Resp 20 09/23/21 05:30 BP 143/84 09/23/21 08:17 Pulse Ox 98 09/23/21 05:30 Intake & Output 09/22/21 09/23/21 09/23/21 17:59 06:59 18:59 Output Total Balance Weight Output: Urine Other: Voiding Method # Voids - Labs CBC & Chem 7: 09/22/21 06:48 09/23/21 06:56 Labs: Abnormal Lab Results - Last 24 Hours (Table) 09/22/21 09/22/21 09/22/21 Range/Units 06:48 06:48 12:03 RBC 3.23 L (4.40-5.60) X 10*6/uL Hgb 9.0 L (13.0-17.0) g/dL Hct 30.6 L (39.6-50.0) % MCHC 29.4 L (32.0-37.0) g/dL RDW 16.9 H (11.5-14.5) % MPV 13.5 H (9.5-12.2) fL Lymphocytes # 0.46 L (0.90-5.00) X 10*3/uL Monocytes # 0.15 L (0.20-1.00) X 10*3/uL Eosinophils # 0 L (0.04-0.35) X 10*3/uL Chloride 95 L (96-109) mmol/L Carbon Dioxide 28.1 H (20.0-27.5) mmol/L BUN 28.1 H (9.0-27.0) mg/dL BUN/Creatinine Ratio 28.56 H (12.00-20.00) Ratio Glucose 139 H (70-110) mg/dL POC Glucose (mg/dL) 146 H (75-99) mg/dL Total Protein 5.8 L (6.2-8.2) g/dL Albumin 3.7 L (3.8-4.9) g/dL 09/22/21 09/22/21 09/23/21 Range/Units 17:18 21:16 06:56 RBC (4.40-5.60) X 10*6/uL Hgb (13.0-17.0) g/dL Hct (39.6-50.0) % MCHC (32.0-37.0) g/dL RDW (11.5-14.5) % MPV (9.5-12.2) fL Lymphocytes # (0.90-5.00) X 10*3/uL Monocytes # (0.20-1.00) X 10*3/uL Eosinophils # (0.04-0.35) X 10*3/uL Chloride 94 L (96-109) mmol/L Carbon Dioxide 30.6 H (20.0-27.5) mmol/L BUN 33.8 H (9.0-27.0) mg/dL BUN/Creatinine Ratio 33.14 H (12.00-20.00) Ratio Glucose 130 H (70-110) mg/dL POC Glucose (mg/dL) 133 H 140 H (75-99) mg/dL Total Protein 6.1 L (6.2-8.2) g/dL Albumin (3.8-4.9) g/dL 09/23/21 Range/Units 07:23 RBC (4.40-5.60) X 10*6/uL Hgb (13.0-17.0) g/dL Hct (39.6-50.0) % MCHC (32.0-37.0) g/dL RDW (11.5-14.5) % MPV (9.5-12.2) fL Lymphocytes # (0.90-5.00) X 10*3/uL Monocytes # (0.20-1.00) X 10*3/uL Eosinophils # (0.04-0.35) X 10*3/uL Chloride (96-109) mmol/L Carbon Dioxide (20.0-27.5) mmol/L BUN (9.0-27.0) mg/dL BUN/Creatinine Ratio (12.00-20.00) Ratio Glucose (70-110) mg/dL POC Glucose (mg/dL) 141 H (75-99) mg/dL Total Protein (6.2-8.2) g/dL Albumin (3.8-4.9) g/dL
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
[2021-09-23 12:25] LABS: Glucose,Whole Blood 150 mg/dL (75-99)
[2021-09-23] MEDS: HYDROcodone/APAP 7.5-325MG 1 EACH TAB PO PRN ×2 (12:51→21:55)
[2021-09-23 12:52] LABS: Basophils # (A) 0 X 10*3/uL (0.00-0.10); Basophils % (A) 0 %; Eosinophils # (A) 0 X 10*3/uL (0.04-0.35); Eosinophils % (A) 0 %; HCT 32.2 % (39.6-50.0); HGB 9.5 g/dL (13.0-17.0); Immature Grans, Automated 0.3 %; Lymphocytes % (A) 4.2 %; MCH 27.9 pg (27.0-32.0); MCHC 29.5 g/dL (32.0-37.0); MCV 94.4 fL (80.0-97.0); Mean Platelet Volume 13.5 fL (9.5-12.2); Monocytes # (A) 0.35 X 10*3/uL (0.20-1.00); Monocytes % (A) 3.7 %; NRBC Per 100 WBC 0 /100 WBCS (0.0-0.0); Neutrophils # (A) 8.64 X 10*3/uL (1.80-7.70); Neutrophils % (A) 91.8 %; Platelet Count 254 X 10*3/uL (140-440); RBC 3.41 X 10*6/uL (4.40-5.60); RDW 16.7 % (11.5-14.5); WBC 9.42 X 10*3/uL (4.50-10.00)
[2021-09-23 17:46] LABS: Glucose,Whole Blood 140 mg/dL (75-99)
--- NOTE | 2021-09-23 18:55 | PN ---
PROGRESS NOTE DATE OF SERVICE: 09/23/2021 This 76-year-old gentleman admitted with COPD and fluid overload also had a flu B positive. Most recent chest x-ray which was reviewed personally by me showed some still persistent congestion, old changes. No chest pain. No palpitations. PHYSICAL EXAMINATION: Pulse 92, blood pressure 119/74, respiration 19. Chest is few scattered rhonchi and crackles. Cardiovascular system: S1, S2. Abdomen soft. Nervous system: No focal deficits. LABS: WBC 9.49, hemoglobin 9.2. Other labs are noted. ASSESSMENT: 1. Shortness of breath, possible congestive heart failure acute exacerbation. 2. Influenza B positive. 3. Possible pneumonia. 4. History of atrial fibrillation. 5. Chronic obstructive pulmonary disease. 6. History of cerebrovascular accident/ transient ischemic attack. RECOMMENDATIONS AND DISCUSSION: Recommend to continue current medications, symptomatic treatment. Otherwise, continue the Tamiflu. Repeat labs. Guarded prognosis. Further recommendations to follow. See orders for details. MMODL / IJN: [id number] /
[2021-09-23 21:35] LABS: Glucose,Whole Blood 140 mg/dL (75-99)
[2021-09-23] MEDS: ESCITALOPRAM 10 MG TAB PO SCH (21:54)
[2021-09-23] MEDS: AMITRIPTYLINE HCL 10 MG TAB PO SCH (21:54)
[2021-09-23] MEDS: TAMSULOSIN 0.4 MG CAP.ER.24H PO SCH (21:55)
[2021-09-23] MEDS: PRAVASTATIN SODIUM 80 MG TAB PO SCH (21:55)
[2021-09-24] MEDS: methylPREDNISolone SOD SUCCI 125 MG/2 ML VIAL IV SCH ×5 (01:05→23:59)
[2021-09-24] MEDS: FUROSEMIDE 10 MG/ML 4 ML VIAL IV SCH ×2 (01:05→08:32)
[2021-09-24] MEDS: HYDROcodone/APAP 7.5-325MG 1 EACH TAB PO PRN (05:51)
[2021-09-24] MEDS: PREGABALIN 100 MG CAP PO SCH ×3 (05:51→21:04)
[2021-09-24] MEDS: PANTOPRAZOLE 40 MG TABLET PO SCH (05:51)
[2021-09-24] MEDS: ALPRAZolam 0.25 MG TAB PO SCH ×3 (05:51→21:04)
[2021-09-24] MEDS: IPRATROPIUM-ALBUTEROL 3 ML NEB INHALATION SCH ×4 (05:54→20:37)
[2021-09-24] MEDS: SYMBICORT 160-4.5 MCG INHALER INHALATION SCH ×2 (05:54→20:37)
[2021-09-24 07:52] LABS: Glucose,Whole Blood 157 mg/dL (75-99)
[2021-09-24] MEDS: OSELTAMIVIR 75 MG CAP PO SCH ×2 (08:31→21:04)
[2021-09-24] MEDS: METOPROLOL SUCCINATE (ER) 100 MG TAB.ER.24H PO SCH (08:31)
[2021-09-24] MEDS: CLOPIDOGREL 75 MG TAB PO SCH (08:32)
[2021-09-24] MEDS: ISOSORBIDE MONONITRATE ER 30 MG TAB.ER.24H PO SCH (08:32)
[2021-09-24] MEDS: CHOLECALCIFEROL 25 MCG (1000 IU) TABLET PO SCH (08:32)
[2021-09-24] MEDS: RIVAROXABAN 20 MG TAB PO SCH (08:32)
[2021-09-24] MEDS: SPIRONOLACTONE 25 MG TAB PO SCH (08:32)
[2021-09-24] MEDS: POTASSIUM CHLORIDE ER 20 MEQ TAB.ER PO SCH ×2 (08:32→21:04)
[2021-09-24] MEDS: INSULIN ASPART (NovoLOG) 100 UNIT/ML VIAL SQ SCH ×4 (08:33→21:04)
[2021-09-24] MEDS: FUROSEMIDE 40 MG TAB PO SCH ×2 (08:55→17:53)
--- NOTE | 2021-09-24 11:03 | P.PN ---
Subjective Progress Note Date: 09/24/21 CHIEF COMPLAINT: CHF HISTORY OF PRESENT ILLNESS: This is a 76-year-old male was admitted to the hospital secondary to COPD and CHF. Patient was also found to be positive for influenza. Patient remains on IV Lasix. Vital signs are stable. He is on 4 L nasal cannula with oxygen saturations greater than 92%. PHYSICAL EXAM: Thorough physical exam not completed secondary to limited evaluation/examination due to influenza ASSESSMENT: Acute on chronic congestive heart failure with preserved ejection fraction COPD exacerbation Pulmonary fibrosis Coronary artery disease with previous CABG and PCI Persistent atrial fibrillation PLAN: Discontinue IV Lasix. Begin oral Lasix 40 mg twice a day Continue additional home cardiac medications No further inpatient recommendations from a cardiac standpoint We will sign off. Please reconsult if needed. Nurse practitioner note has been reviewed by physician. Signing provider agrees with the documented findings, assessment, and plan of care. Objective - Vital Signs Vital signs: Vital Signs Temp 97.7 F 09/24/21 05:51 Pulse 83 09/24/21 08:40 Resp 18 09/24/21 05:51 BP 104/53 09/24/21 08:40 Pulse Ox 93 L 09/24/21 05:51 Intake & Output 09/23/21 09/24/21 09/24/21 18:59 06:59 18:59 Other: Voiding Method Toilet Toilet Urinal Urinal # Voids 4 3 - Labs CBC & Chem 7: 09/23/21 06:56 09/23/21 06:56 Labs: Abnormal Lab Results - Last 24 Hours (Table) 09/23/21 09/23/21 09/23/21 Range/Units 06:56 06:56 12:24 RBC 3.41 L (4.40-5.60) X 10*6/uL Hgb 9.5 L (13.0-17.0) g/dL Hct 32.2 L (39.6-50.0) % MCHC 29.5 L (32.0-37.0) g/dL RDW 16.7 H (11.5-14.5) % MPV 13.5 H (9.5-12.2) fL Neutrophils # 8.64 H (1.80-7.70) X 10*3/uL Lymphocytes # 0.40 L (0.90-5.00) X 10*3/uL Eosinophils # 0 L (0.04-0.35) X 10*3/uL Chloride 94 L (96-109) mmol/L Carbon Dioxide 30.6 H (20.0-27.5) mmol/L BUN 33.8 H (9.0-27.0) mg/dL BUN/Creatinine Ratio 33.14 H (12.00-20.00) Ratio Glucose 130 H (70-110) mg/dL POC Glucose (mg/dL) 150 H (75-99) mg/dL Total Protein 6.1 L (6.2-8.2) g/dL 09/23/21 09/23/21 09/24/21 Range/Units 17:45 21:33 07:51 RBC (4.40-5.60) X 10*6/uL Hgb (13.0-17.0) g/dL Hct (39.6-50.0) % MCHC (32.0-37.0) g/dL RDW (11.5-14.5) % MPV (9.5-12.2) fL Neutrophils # (1.80-7.70) X 10*3/uL Lymphocytes # (0.90-5.00) X 10*3/uL Eosinophils # (0.04-0.35) X 10*3/uL Chloride (96-109) mmol/L Carbon Dioxide (20.0-27.5) mmol/L BUN (9.0-27.0) mg/dL BUN/Creatinine Ratio (12.00-20.00) Ratio Glucose (70-110) mg/dL POC Glucose (mg/dL) 140 H 140 H 157 H (75-99) mg/dL Total Protein (6.2-8.2) g/dL
[2021-09-24 11:20] LABS: African American GFR (CKD) 68.1 (60.0-200.0); Anion Gap 16.8 mmol/L (10.00-18.00); Blood Urea Nitrogen 40.8 mg/dL (9.0-27.0); Calcium 9.1 mg/dL (8.7-10.3); Carbon Dioxide 25.2 mmol/L (20.0-27.5); Non-African American GFR(CKD) 58.8 (60.0-200.0); Potassium 5.2 mmol/L (3.5-5.5)
[2021-09-24 12:38] LABS: Basophils # (A) 0.01 X 10*3/uL (0.00-0.10); Basophils % (A) 0.1 %; Eosinophils # (A) 0 X 10*3/uL (0.04-0.35); Eosinophils % (A) 0 %; HCT 36.4 % (39.6-50.0); HGB 10.4 g/dL (13.0-17.0); Immature Grans, Automated 0.5 %; Lymphocytes # (A) 0.38 X 10*3/uL (0.90-5.00); Lymphocytes % (A) 4.2 %; MCH 27.4 pg (27.0-32.0); MCHC 28.6 g/dL (32.0-37.0); MCV 95.8 fL (80.0-97.0); Mean Platelet Volume 13.8 fL (9.5-12.2); Monocytes % (A) 3.3 %; NRBC Per 100 WBC 0.4 /100 WBCS (0.0-0.0); Neutrophils # (A) 8.37 X 10*3/uL (1.80-7.70); Neutrophils % (A) 91.9 %; Platelet Count 256 X 10*3/uL (140-440); RDW 16.7 % (11.5-14.5); WBC 9.11 X 10*3/uL (4.50-10.00)
[2021-09-24 12:44] LABS: Glucose,Whole Blood 156 mg/dL (75-99)
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
--- NOTE | 2021-09-24 16:01 | P.PN ---
Subjective Progress Note Date: 09/24/21 This is a pleasant 76-year-old male who was recently admitted with chronic obstructive pulmonary disease acute exacerbation along with fluid overload and also found to be flu B+ and is being closely monitored. Pulmonary, cardiology, infectious disease following an patient is maintained on Tamiflu also breathing inhalational treatments and IV steroids and will continue. She is currently maintained on 4 L of oxygen via nasal cannula. Patient continues with weakness and will have PT/OT evaluate the patient. Recommend follow-up chest x-ray in the a.m. Patient currently denies chest pain or palpitations. Patient is afebrile. Patient tolerating diet with no reports of nausea or vomiting noted. Review of systems: Constitutional: No reports of fatigue, fever, or chills Cardiovascular: No reports of chest pain or palpitations Respiratory: reports of continued shortness of breath and cough GI: reports of nausea, no reports of of vomiting, no reports of diarrhea : No reports of dysuria or retention Neurovascular: reports of generalized weakness All medications have been reviewed Active Medications Hydrocodone Bitart/Acetaminophen (Hydrocodone/Apap 7.5-325mg 1 Each Tab) 1 each PO Q6H PRN PRN Reason: Pain Last Admin: 09/24/21 05:51 Dose: 1 each Documented by: Albuterol/Ipratropium (Ipratropium-Albuterol 3 Ml Neb) 3 ml INHALATION RT-Q4H PRN PRN Reason: Shortness Of Breath Or Wheezing Albuterol/Ipratropium (Ipratropium-Albuterol 3 Ml Neb) 3 ml INHALATION RT-QID [facility] Last Admin: 09/24/21 15:32 Dose: 3 ml Documented by: Alprazolam (Alprazolam 0.25 Mg Tab) 0.25 mg PO Q8H [facility] Last Admin: 09/24/21 13:23 Dose: 0.25 mg Documented by: Amitriptyline HCl (Amitriptyline Hcl 10 Mg Tab) 10 mg PO HS [facility] Last Admin: 09/23/21 21:54 Dose: 10 mg Documented by: Budesonide/Formoterol Fumarate (Symbicort 160-4.5 Mcg Inhaler) 2 puff INHALATION RT-BID [facility] Last Admin: 09/24/21 05:54 Dose: 2 puff Documented by: Cholecalciferol (Cholecalciferol 25 Mcg (1000 Iu) Tablet) 50 mcg PO DAILY [facility] Last Admin: 09/24/21 08:32 Dose: 50 mcg Documented by: Clopidogrel Bisulfate (Clopidogrel 75 Mg Tab) 75 mg PO DAILY [facility] Last Admin: 09/24/21 08:32 Dose: 75 mg Documented by: Escitalopram Oxalate (Escitalopram 10 Mg Tab) 10 mg PO HS [facility] Last Admin: 09/23/21 21:54 Dose: 10 mg Documented by: Furosemide (Furosemide 40 Mg Tab) 40 mg PO BID@0900,1600 [facility] Last Admin: 09/24/21 08:55 Dose: Not Given Documented by: Insulin Aspart (Insulin Aspart (Novolog) 100 Unit/Ml Vial) 0 unit SQ [facility]; Protocol Last Admin: 09/24/21 13:24 Dose: 2 unit Documented by: Isosorbide Mononitrate (Isosorbide Mononitrate Er 30 Mg Tab.Er.24h) 30 mg PO DAILY [facility] Last Admin: 09/24/21 08:32 Dose: 30 mg Documented by: Methylprednisolone Sodium Succinate (Methylprednisolone Sod Succi 125 Mg/2 Ml Vial) 60 mg IV Q6HR [facility] Last Admin: 09/24/21 13:23 Dose: 60 mg Documented by: Metoprolol Succinate (Metoprolol Succinate (Er) 100 Mg Tab.Er.24h) 100 mg PO DAILY [facility] Last Admin: 09/24/21 08:31 Dose: 100 mg Documented by: Oseltamivir Phosphate (Oseltamivir 75 Mg Cap) 75 mg PO Q12HR [facility]; Protocol Stop: 09/26/21 09:01 Last Admin: 09/24/21 08:31 Dose: 75 mg Documented by: Pantoprazole Sodium (Pantoprazole 40 Mg Tablet) 40 mg PO DAILY@0600 [facility] Last Admin: 09/24/21 05:51 Dose: 40 mg Documented by: Potassium Chloride (Potassium Chloride Er 20 Meq Tab.Er) 20 meq PO BID [facility] Last Admin: 09/24/21 08:32 Dose: 20 meq Documented by: Pravastatin Sodium (Pravastatin Sodium 80 Mg Tab) 80 mg PO HS [facility] Last Admin: 09/23/21 21:55 Dose: 80 mg Documented by: Pregabalin (Pregabalin 100 Mg Cap) 200 mg PO TID@0600,1400,2200 [facility] Last Admin: 09/24/21 13:23 Dose: 200 mg Documented by: Rivaroxaban (Rivaroxaban 20 Mg Tab) 20 mg PO DAILY [facility]; Protocol Last Admin: 09/24/21 08:32 Dose: 20 mg Documented by: Spironolactone (Spironolactone 25 Mg Tab) 25 mg PO DAILY [facility] Last Admin: 09/24/21 08:32 Dose: 25 mg Documented by: Tamsulosin HCl (Tamsulosin 0.4 Mg Cap.Er.24h) 0.4 mg PO HS [facility] Last Admin: 09/23/21 21:55 Dose: 0.4 mg Documented by: PHYSICAL EXAMINATION: GENERAL: The patient is alert and oriented x4, Well developed, well nourished. HEENT: Pupils are round and equally reacting to light. EOMI. does have scleral icterus. No conjunctival pallor. Normocephalic, atraumatic. No pharyngeal erythema. No thyromegaly. CARDIOVASCULAR: S1 and S2 muffled PULMONARY: diminished breath sounds bilaterally with no wheezing or rhonchi noted. ABDOMEN: soft. Nontender on exam. obese. non-distended, normoactive bowel sounds. No palpable organomegaly. MUSCULOSKELETAL: No joint swelling or deformity. EXTREMITIES: No cyanosis, clubbing, or pedal edema. Right hip surgical dressing is intact NEUROLOGICAL: Gross neurological examination did not reveal any focal deficits. Diffuse weakness SKIN: No rashes. Assessment: Shortness of breath, possible congestive heart failure acute exacerbation Chronic obstructive pulmonary disease, acute exacerbation Influenza B positive Possible pneumonia next line history of atrial fibrillation History of CVA, TIA Gait dysfunction GI prophylaxis DVT prophylaxis Full code Plan: Recommend to continue with current medications and symptomatic management. Pulmonary, cardiology, infectious disease following and patient is maintained on Tamiflu along with IV steroids, breathing inhalational treatments, and oral Lasix and will continue. Appropriate home medications have been resumed. PT/OT to evaluate the patient is patient continues to be weak, possible ECF. Recomme nd to continue closely monitoring blood sugars as well and continue sliding scale and Accu-Cheks before meals and at bedtime. Lasix being transitioned oral Lasix. Will await PT/OT therapy notes. The impression and plan of care has been dictated by Thelma Verma, nurse practitioner as directed. MD Kanika I have performed a history and examination and MDM of this patient, discussed the same with the dictator, and agree with the dictator's assessment and plan as written ,documented as a scribe. Based on total visit time, I have performed more than 50% of the visit. Any additional findings or plans will be noted. Objective - Vital Signs Vital signs: Vital Signs Temp 97.7 F 09/24/21 05:51 Pulse 83 09/24/21 08:40 Resp 18 09/24/21 05:51 BP 104/53 09/24/21 08:40 Pulse Ox 93 L 09/24/21 05:51 Intake & Output 09/23/21 09/24/21 09/24/21 18:59 06:59 18:59 Other: Voiding Method Toilet Toilet Urinal Urinal # Voids 4 3 - Labs CBC & Chem 7: 09/24/21 07:07 09/24/21 07:07 Labs: Abnormal Lab Results - Last 24 Hours (Table) 09/23/21 09/23/21 09/23/21 Range/Units 06:56 06:56 12:24 RBC 3.41 L (4.40-5.60) X 10*6/uL Hgb 9.5 L (13.0-17.0) g/dL Hct 32.2 L (39.6-50.0) % MCHC 29.5 L (32.0-37.0) g/dL RDW 16.7 H (11.5-14.5) % MPV 13.5 H (9.5-12.2) fL Neutrophils # 8.64 H (1.80-7.70) X 10*3/uL Lymphocytes # 0.40 L (0.90-5.00) X 10*3/uL Eosinophils # 0 L (0.04-0.35) X 10*3/uL Chloride 94 L (96-109) mmol/L Carbon Dioxide 30.6 H (20.0-27.5) mmol/L BUN 33.8 H (9.0-27.0) mg/dL BUN/Creatinine Ratio 33.14 H (12.00-20.00) Ratio Glucose 130 H (70-110) mg/dL POC Glucose (mg/dL) 150 H (75-99) mg/dL Total Protein 6.1 L (6.2-8.2) g/dL 09/23/21 09/23/21 09/24/21 Range/Units 17:45 21:33 07:51 RBC (4.40-5.60) X 10*6/uL Hgb (13.0-17.0) g/dL Hct (39.6-50.0) % MCHC (32.0-37.0) g/dL RDW (11.5-14.5) % MPV (9.5-12.2) fL Neutrophils # (1.80-7.70) X 10*3/uL Lymphocytes # (0.90-5.00) X 10*3/uL Eosinophils # (0.04-0.35) X 10*3/uL Chloride (96-109) mmol/L Carbon Dioxide (20.0-27.5) mmol/L BUN (9.0-27.0) mg/dL BUN/Creatinine Ratio (12.00-20.00) Ratio Glucose (70-110) mg/dL POC Glucose (mg/dL) 140 H 140 H 157 H (75-99) mg/dL Total Protein (6.2-8.2) g/dL
[2021-09-24 17:34] LABS: Glucose,Whole Blood 159 mg/dL (75-99)
[2021-09-24 20:17] LABS: Glucose,Whole Blood 163 mg/dL (75-99)
[2021-09-24] MEDS: PRAVASTATIN SODIUM 80 MG TAB PO SCH (21:04)
[2021-09-24] MEDS: ESCITALOPRAM 10 MG TAB PO SCH (21:04)
[2021-09-24] MEDS: AMITRIPTYLINE HCL 10 MG TAB PO SCH (21:04)
[2021-09-24] MEDS: TAMSULOSIN 0.4 MG CAP.ER.24H PO SCH (21:04)
--- NOTE | 2021-09-24 23:39 | P.PN ---
Subjective Progress Note Date: 09/23/21 Principal diagnosis: Acute influenza B Patient is a 76 year male with a past medical history significant for COPD presenting to the hospital with increasing shortness of breath or cough patient been diagnosed with acute influenza B. On today's evaluation that is 09/23/2021, the patient denies having any fever or chills accompanying or shortness of breath denies having any chest pain she did have a cough with some clear sputum no abdominal pain and no diarrhea Objective - Vital Signs Vital signs: Vital Signs Temp 97.6 F 09/23/21 12:26 Pulse 92 09/23/21 12:26 Resp 19 09/23/21 12:26 BP 119/70 09/23/21 12:26 Pulse Ox 100 09/23/21 12:26 Intake & Output 09/22/21 09/23/21 09/23/21 17:59 06:59 18:59 Output Total Balance Weight Output: Urine Other: Voiding Method # Voids - Exam GENERAL DESCRIPTION: An elderly male lying in bed in no distress RESPIRATORY SYSTEM: Unlabored breathing , decreased intensity breath sounds HEART: S1 S2 regular rate and rhythm , ABDOMEN: Soft , no tenderness EXTREMITIES: No edema feet - Labs CBC & Chem 7: 09/24/21 07:07 09/24/21 07:07 Labs: Abnormal Lab Results - Last 24 Hours (Table) 09/22/21 09/22/21 09/22/21 Range/Units 06:48 17:18 21:16 RBC 3.23 L (4.40-5.60) X 10*6/uL Hgb 9.0 L (13.0-17.0) g/dL Hct 30.6 L (39.6-50.0) % MCHC 29.4 L (32.0-37.0) g/dL RDW 16.9 H (11.5-14.5) % MPV 13.5 H (9.5-12.2) fL Neutrophils # (1.80-7.70) X 10*3/uL Lymphocytes # 0.46 L (0.90-5.00) X 10*3/uL Monocytes # 0.15 L (0.20-1.00) X 10*3/uL Eosinophils # 0 L (0.04-0.35) X 10*3/uL Chloride (96-109) mmol/L Carbon Dioxide (20.0-27.5) mmol/L BUN (9.0-27.0) mg/dL BUN/Creatinine Ratio (12.00-20.00) Ratio Glucose (70-110) mg/dL POC Glucose (mg/dL) 133 H 140 H (75-99) mg/dL Total Protein (6.2-8.2) g/dL 09/23/21 09/23/21 09/23/21 Range/Units 06:56 06:56 07:23 RBC 3.41 L (4.40-5.60) X 10*6/uL Hgb 9.5 L (13.0-17.0) g/dL Hct 32.2 L (39.6-50.0) % MCHC 29.5 L (32.0-37.0) g/dL RDW 16.7 H (11.5-14.5) % MPV 13.5 H (9.5-12.2) fL Neutrophils # 8.64 H (1.80-7.70) X 10*3/uL Lymphocytes # 0.40 L (0.90-5.00) X 10*3/uL Monocytes # (0.20-1.00) X 10*3/uL Eosinophils # 0 L (0.04-0.35) X 10*3/uL Chloride 94 L (96-109) mmol/L Carbon Dioxide 30.6 H (20.0-27.5) mmol/L BUN 33.8 H (9.0-27.0) mg/dL BUN/Creatinine Ratio 33.14 H (12.00-20.00) Ratio Glucose 130 H (70-110) mg/dL POC Glucose (mg/dL) 141 H (75-99) mg/dL Total Protein 6.1 L (6.2-8.2) g/dL 09/23/21 Range/Units 12:24 RBC (4.40-5.60) X 10*6/uL Hgb (13.0-17.0) g/dL Hct (39.6-50.0) % MCHC (32.0-37.0) g/dL RDW (11.5-14.5) % MPV (9.5-12.2) fL Neutrophils # (1.80-7.70) X 10*3/uL Lymphocytes # (0.90-5.00) X 10*3/uL Monocytes # (0.20-1.00) X 10*3/uL Eosinophils # (0.04-0.35) X 10*3/uL Chloride (96-109) mmol/L Carbon Dioxide (20.0-27.5) mmol/L BUN (9.0-27.0) mg/dL BUN/Creatinine Ratio (12.00-20.00) Ratio Glucose (70-110) mg/dL POC Glucose (mg/dL) 150 H (75-99) mg/dL Total Protein (6.2-8.2) g/dL Assessment and Plan (1) Influenza B Current Visit: Yes Status: Acute Code(s): J10.1 - FLU DUE TO OTH IDENT INFLUENZA VIRUS W OTH RESP MANIFEST SNOMED Code(s): 22905120 Plan: 1patient presented to hospital with increasing shortness of breath and cough in this patient has been diagnosed with acute influenza currently with no evidence of any secondary bacterial pneumonia he did have a normal procalcitonin and Covid testing was negative. 2patient to continue with the Tamiflu 75 mg twice a day finishes 5-day course of therapy. 3no need for systemic antibiotic therapy. 4droplet isolation Time with Patient: Less than 30
--- NOTE | 2021-09-24 23:41 | P.PN ---
Subjective Progress Note Date: 09/24/21 Principal diagnosis: Acute influenza B Patient is a 76 year male with a past medical history significant for COPD presenting to the hospital with increasing shortness of breath or cough patient been diagnosed with acute influenza B. On today's evaluation that is 09/24/2021, the patient remains to be afebrile, the patient is complaining of shortness of breath , the patient did have a cough and is bringing up some clear sputum no hemoptysis denies any abdominal pain no diarrhea Objective - Vital Signs Vital signs: Vital Signs Temp 97.6 F 09/24/21 13:00 Pulse 83 09/24/21 15:43 Resp 18 09/24/21 13:00 BP 105/62 09/24/21 13:00 Pulse Ox 100 09/24/21 13:00 Intake & Output 09/23/21 09/24/21 09/24/21 18:59 06:59 18:59 Other: Voiding Method Toilet Toilet Urinal Urinal # Voids 4 3 - Exam GENERAL DESCRIPTION: An elderly male lying in bed in no distress RESPIRATORY SYSTEM: Unlabored breathing , decreased intensity breath sounds HEART: S1 S2 regular rate and rhythm , ABDOMEN: Soft , no tenderness EXTREMITIES: No edema feet - Labs CBC & Chem 7: 09/24/21 07:07 09/24/21 07:07 Labs: Abnormal Lab Results - Last 24 Hours (Table) 09/23/21 09/23/21 09/24/21 Range/Units 17:45 21:33 07:07 RBC 3.80 L (4.40-5.60) X 10*6/uL Hgb 10.4 L (13.0-17.0) g/dL Hct 36.4 L (39.6-50.0) % MCHC 28.6 L (32.0-37.0) g/dL RDW 16.7 H (11.5-14.5) % MPV 13.8 H (9.5-12.2) fL Absolute Nucleated RBC 0.04 H (0.00-0.00) X 10*3/uL Immature Gran # 0.05 H (0.00-0.04) X 10*3/uL Neutrophils # 8.37 H (1.80-7.70) X 10*3/uL Lymphocytes # 0.38 L (0.90-5.00) X 10*3/uL Eosinophils # 0 L (0.04-0.35) X 10*3/uL NRBC/100 WBC Diff 0.4 H (0.0-0.0) /100 WBCS Chloride (96-109) mmol/L BUN (9.0-27.0) mg/dL Est GFR (CKD-EPI)NonAf (60.0-200.0) BUN/Creatinine Ratio (12.00-20.00) Ratio Glucose (70-110) mg/dL POC Glucose (mg/dL) 140 H 140 H (75-99) mg/dL 09/24/21 09/24/21 09/24/21 Range/Units 07:07 07:51 12:43 RBC (4.40-5.60) X 10*6/uL Hgb (13.0-17.0) g/dL Hct (39.6-50.0) % MCHC (32.0-37.0) g/dL RDW (11.5-14.5) % MPV (9.5-12.2) fL Absolute Nucleated RBC (0.00-0.00) X 10*3/uL Immature Gran # (0.00-0.04) X 10*3/uL Neutrophils # (1.80-7.70) X 10*3/uL Lymphocytes # (0.90-5.00) X 10*3/uL Eosinophils # (0.04-0.35) X 10*3/uL NRBC/100 WBC Diff (0.0-0.0) /100 WBCS Chloride 94 L (96-109) mmol/L BUN 40.8 H (9.0-27.0) mg/dL Est GFR (CKD-EPI)NonAf 58.8 L (60.0-200.0) BUN/Creatinine Ratio 34.00 H (12.00-20.00) Ratio Glucose 124 H (70-110) mg/dL POC Glucose (mg/dL) 157 H 156 H (75-99) mg/dL Assessment and Plan (1) Influenza B Current Visit: Yes Status: Acute Code(s): J10.1 - FLU DUE TO OTH IDENT INFLUENZA VIRUS W OTH RESP MANIFEST SNOMED Code(s): 17325786 Plan: 1patient presented to hospital with increasing shortness of breath and cough in this patient has been diagnosed with acute influenza currently with no evidence of any secondary bacterial pneumonia he did have a normal procalcitonin and Covid testing was negative. 2patient seemed to have shown some clinical improvement and will continue with the Tamiflu 75 mg twice a day finishes 5-day course of therapy. 3there is no need for systemic antibiotic therapy. Time with Patient: Less than 30
[2021-09-25] MEDS: HYDROcodone/APAP 7.5-325MG 1 EACH TAB PO PRN ×3 (00:34→17:51)
[2021-09-25] MEDS: PREGABALIN 100 MG CAP PO SCH ×3 (05:39→20:46)
[2021-09-25] MEDS: PANTOPRAZOLE 40 MG TABLET PO SCH (05:39)
[2021-09-25] MEDS: ALPRAZolam 0.25 MG TAB PO SCH ×3 (05:39→20:46)
[2021-09-25] MEDS: methylPREDNISolone SOD SUCCI 125 MG/2 ML VIAL IV SCH ×4 (05:39→23:16)
[2021-09-25 07:19] LABS: Glucose,Whole Blood 162 mg/dL (75-99)
[2021-09-25] MEDS: IPRATROPIUM-ALBUTEROL 3 ML NEB INHALATION SCH ×4 (07:37→19:46)
[2021-09-25] MEDS: SYMBICORT 160-4.5 MCG INHALER INHALATION SCH ×2 (07:37→19:46)
[2021-09-25] MEDS: CLOPIDOGREL 75 MG TAB PO SCH (08:10)
[2021-09-25] MEDS: FUROSEMIDE 40 MG TAB PO SCH ×2 (08:10→17:44)
[2021-09-25] MEDS: INSULIN ASPART (NovoLOG) 100 UNIT/ML VIAL SQ SCH ×4 (08:10→21:21)
[2021-09-25] MEDS: SPIRONOLACTONE 25 MG TAB PO SCH (08:10)
[2021-09-25] MEDS: CHOLECALCIFEROL 25 MCG (1000 IU) TABLET PO SCH (08:10)
[2021-09-25] MEDS: ISOSORBIDE MONONITRATE ER 30 MG TAB.ER.24H PO SCH (08:10)
[2021-09-25] MEDS: POTASSIUM CHLORIDE ER 20 MEQ TAB.ER PO SCH ×2 (08:10→20:46)
[2021-09-25] MEDS: METOPROLOL SUCCINATE (ER) 100 MG TAB.ER.24H PO SCH (08:31)
[2021-09-25] MEDS ORDERED: RIVAROXABAN 10 MG TAB PO SCH (09:00)
[2021-09-25 09:38] LABS: African American GFR (CKD) 75.7 (60.0-200.0); Albumin 4.1 g/dL (3.8-4.9); Albumin/Globulin Ratio 2.05 (1.60-3.17); Anion Gap 12.2 mmol/L (10.00-18.00); BUN/Creat Ratio 41.55 Ratio (12.00-20.00); Blood Urea Nitrogen 45.7 mg/dL (9.0-27.0); Calcium 9.1 mg/dL (8.7-10.3); Carbon Dioxide 32.8 mmol/L (20.0-27.5); Non-African American GFR(CKD) 65.3 (60.0-200.0); Potassium 5.2 mmol/L (3.5-5.5); Total Bilirubin 0.6 mg/dL (0.30-1.20); Total Protein 6.1 g/dL (6.2-8.2)
--- NOTE | 2021-09-25 09:51 | XR ---
EXAMINATION TYPE: XR chest 1V portable DATE OF EXAM: 09/25/2021 COMPARISON: 09/23/2021 HISTORY: Shortness of breath TECHNIQUE: Single frontal view of the chest is obtained. FINDINGS: Bilateral infiltrate and small effusion. Patchy interstitial changes are seen and there is no pneumothorax. Cardiomegaly with atherosclerotic change aorta. Postoperative changes seen. Suspect underlying COPD and chronic interstitial lung disease. IMPRESSION: 1. Bilateral diffuse interstitial pattern with bilateral infiltrate and pleural effusion superimposed on a background COPD. Correlate for CHF otherwise consider diffuse pneumonia.
[2021-09-25] MEDS: OSELTAMIVIR 75 MG CAP PO SCH ×2 (10:28→20:46)
[2021-09-25 11:37] LABS: Basophils # (A) 0 X 10*3/uL (0.00-0.10); Basophils % (A) 0 %; Eosinophils # (A) 0 X 10*3/uL (0.04-0.35); Eosinophils % (A) 0 %; HGB 9.7 g/dL (13.0-17.0); Immature Grans, Automated 0.7 %; Lymphocytes # (A) 0.31 X 10*3/uL (0.90-5.00); Lymphocytes % (A) 3.2 %; MCH 27.3 pg (27.0-32.0); MCHC 29.4 g/dL (32.0-37.0); Mean Platelet Volume 13.1 fL (9.5-12.2); Monocytes # (A) 0.39 X 10*3/uL (0.20-1.00); NRBC Per 100 WBC 0.9 /100 WBCS (0.0-0.0); Neutrophils # (A) 8.98 X 10*3/uL (1.80-7.70); Neutrophils % (A) 92.1 %; Platelet Count 263 X 10*3/uL (140-440); RBC 3.55 X 10*6/uL (4.40-5.60); RDW 16.3 % (11.5-14.5); WBC 9.75 X 10*3/uL (4.50-10.00)
[2021-09-25 12:02] LABS: Glucose,Whole Blood 149 mg/dL (75-99)
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
--- NOTE | 2021-09-25 15:11 | P.PN ---
Subjective Progress Note Date: 09/25/21 This is a pleasant 76-year-old male who was recently admitted with chronic obstructive pulmonary disease acute exacerbation along with fluid overload and also found to be flu B+ and is being closely monitored. Pulmonary, cardiology, infectious disease following an patient is maintained on Tamiflu also breathing inhalational treatments and IV steroids and will continue. She is currently maintained on 4 L of oxygen via nasal cannula. Patient continues with weakness and will have PT/OT evaluate the patient. Recommend follow-up chest x-ray in the a.m. Patient currently denies chest pain or palpitations. Patient is afebrile. Patient tolerating diet with no reports of nausea or vomiting noted. 09/25/2021 Patient is seen in follow-up today continues to be dyspneic with minimal exertion and currently maintained on 2 L of oxygen via nasal cannula. Patient normally wears oxygen in the outpatient setting. Patient continues on IV steroids along with breathing inhalational treatments and Tamiflu and will continue. Blood sugars mildly elevated in the mid 100s currently being managed with sliding scale and recommend continue with Accu-Cheks before meals and at bedtime. Chest x-ray done today shows bilateral diffuse interstitial pattern with bilateral infiltrate and pleural effusion superimposed on a background COPD and a correlate for possible CHF otherwise consider diffuse pneumonia. Patient is continued on by mouth Lasix 40 mg twice daily and will continue. Patient denies worsening shortness of breath, denies chest pain or palpitations. Patient is afebrile. Patient tolerating diet with no reports of nausea or vomiting noted. WBC within normal limits at 9.7. Review of systems: Constitutional: No reports of fatigue, fever, or chills Cardiovascular: No reports of chest pain or palpitations Respiratory: reports of continued shortness of breath and cough now with more p hlegm production that is greenish GI: No reports of nausea, no reports of of vomiting, no reports of diarrhea : No reports of dysuria or retention Neurovascular: reports of generalized weakness All medications have been reviewed Active Medications Hydrocodone Bitart/Acetaminophen (Hydrocodone/Apap 7.5-325mg 1 Each Tab) 1 each PO Q6H PRN PRN Reason: Pain Last Admin: 09/25/21 05:43 Dose: 1 each Documented by: Albuterol/Ipratropium (Ipratropium-Albuterol 3 Ml Neb) 3 ml INHALATION RT-Q4H PRN PRN Reason: Shortness Of Breath Or Wheezing Albuterol/Ipratropium (Ipratropium-Albuterol 3 Ml Neb) 3 ml INHALATION RT-QID [facility] Last Admin: 09/25/21 11:18 Dose: 3 ml Documented by: Alprazolam (Alprazolam 0.25 Mg Tab) 0.25 mg PO Q8H [facility] Last Admin: 09/25/21 12:49 Dose: 0.25 mg Documented by: Amitriptyline HCl (Amitriptyline Hcl 10 Mg Tab) 10 mg PO HS [facility] Last Admin: 09/24/21 21:04 Dose: 10 mg Documented by: Budesonide/Formoterol Fumarate (Symbicort 160-4.5 Mcg Inhaler) 2 puff INHALATION RT-BID [facility] Last Admin: 09/25/21 07:37 Dose: 2 puff Documented by: Cholecalciferol (Cholecalciferol 25 Mcg (1000 Iu) Tablet) 50 mcg PO DAILY [facility] Last Admin: 09/25/21 08:10 Dose: 50 mcg Documented by: Clopidogrel Bisulfate (Clopidogrel 75 Mg Tab) 75 mg PO DAILY [facility] Last Admin: 09/25/21 08:10 Dose: 75 mg Documented by: Escitalopram Oxalate (Escitalopram 10 Mg Tab) 10 mg PO [facility] Last Admin: 09/24/21 21:04 Dose: 10 mg Documented by: Furosemide (Furosemide 40 Mg Tab) 40 mg PO BID@0900,1600 [facility] Last Admin: 09/25/21 08:10 Dose: 40 mg Documented by: Insulin Aspart (Insulin Aspart (Novolog) 100 Unit/Ml Vial) 0 unit SQ LOCATED [facility]IN [facility]; Protocol Last Admin: 09/25/21 12:48 Dose: 1 unit Documented by: Isosorbide Mononitrate (Isosorbide Mononitrate Er 30 Mg Tab.Er.24h) 30 mg PO DAILY [facility] Last Admin: 09/25/21 08:10 Dose: 30 mg Documented by: Methylprednisolone Sodium Succinate (Methylprednisolone Sod Succi 125 Mg/2 Ml Vial) 60 mg IV Q6HR [facility] Last Admin: 09/25/21 12:47 Dose: 60 mg Documented by: Metoprolol Succinate (Metoprolol Succinate (Er) 100 Mg Tab.Er.24h) 100 mg PO DAILY [facility] Last Admin: 09/25/21 08:31 Dose: 100 mg Documented by: Oseltamivir Phosphate (Oseltamivir 75 Mg Cap) 75 mg PO Q12HR [facility]; Protocol Stop: 09/26/21 09:01 Last Admin: 09/25/21 10:28 Dose: 75 mg Documented by: Pantoprazole Sodium (Pantoprazole 40 Mg Tablet) 40 mg PO DAILY@0600 [facility] Last Admin: 09/25/21 05:39 Dose: 40 mg Documented by: Potassium Chloride (Potassium Chloride Er 20 Meq Tab.Er) 20 meq PO BID [facility] Last Admin: 09/25/21 08:10 Dose: 20 meq Documented by: Pravastatin Sodium (Pravastatin Sodium 80 Mg Tab) 80 mg PO HS [facility] Last Admin: 09/24/21 21:04 Dose: 80 mg Documented by: Pregabalin (Pregabalin 100 Mg Cap) 200 mg PO TID@0600,1400,2200 [facility] Last Admin: 09/25/21 05:39 Dose: 200 mg Documented by: Rivaroxaban (Rivaroxaban 10 Mg Tab) 20 mg PO DAILY [facility]; Protocol Stop: 09/25/21 23:00 Last Admin: 09/25/21 10:28 Dose: 20 mg Documented by: Rivaroxaban (Rivaroxaban 20 Mg Tab) 20 mg PO DAILY [facility]; Protocol Spironolactone (Spironolactone 25 Mg Tab) 25 mg PO DAILY [facility] Last Admin: 09/25/21 08:10 Dose: 25 mg Documented by: Tamsulosin HCl (Tamsulosin 0.4 Mg Cap.Er.24h) 0.4 mg PO [facility] Last Admin: 09/24/21 21:04 Dose: 0.4 mg Documented by: PHYSICAL EXAMINATION: GENERAL: The patient is alert and oriented x4, Well developed, well nourished. HEENT: Pupils are round and equally reacting to light. EOMI. does have scleral icterus. No conjunctival pallor. Normocephalic, atraumatic. No pharyngeal erythema. No thyromegaly. CARDIOVASCULAR: S1 and S2 muffled PULMONARY: diminished breath sounds bilaterally with no wheezing or rhonchi noted. ABDOMEN: soft. Nontender on exam. obese. non-distended, normoactive bowel sounds. No palpable organomegaly. MUSCULOSKELETAL: No joint swelling or deformity. EXTREMITIES: No cyanosis, clubbing, or pedal edema. NEUROLOGICAL: Gross neurological examination did not reveal any focal deficits. SKIN: No rashes. Assessment: Shortness of breath, possible congestive heart failure diastolic dysfunction, acute exacerbation Acute on chronic hypoxemic respiratory failure secondary to CHF exacerbation Chronic obstructive pulmonary disease, acute exacerbation Influenza B positive Possible pneumonia history of chronic atrial fibrillation History of CVA, TIA Gait dysfunction GI prophylaxis DVT prophylaxis Full code Plan: Recommend to continue with current medications and symptomatic management. Pulmonary, cardiology, infectious disease following and patient is maintained on Tamiflu along with IV steroids, breathing inhalational treatments, and oral Lasix and will continue. Appropriate home medications have been resumed. PT/OT to evaluate the patient is patient continues to be weak, possible ECF. Patient reports he will be returning home with his once discharged. Family also refusing rehab at this time. Patient does wear oxygen in the outpatient setting normally 4 L chronically. Recommend to continue closely monitoring blood sugars as well and continue sliding scale and Accu-Cheks before meals and at bedtime. The impression and plan of care has been dictated by Thelma Verma, nurse practitioner as directed. MD Shilpi I have performed a history and examination and MDM of this patient, discussed the same with the dictator, and agree with the dictator's assessment and plan as written ,documented as a scribe. Based on total visit time, I have performed more than 50% of the visit. Any additional findings or plans will be noted. Objective - Vital Signs Vital signs: Vital Signs Temp 97.4 F L 09/25/21 04:44 Pulse 82 09/25/21 08:11 Resp 16 09/25/21 04:44 BP 110/70 09/25/21 08:11 Pulse Ox 97 09/25/21 04:44 Intake & Output 09/24/21 09/25/21 09/25/21 18:59 06:59 18:59 Intake Total 1080 Balance 1080 Weight 118.2 kg Intake: Oral 1080 Other: Voiding Method Toilet Toilet Urinal Urinal # Voids 3 1 - Labs CBC & Chem 7: 09/25/21 06:02 09/25/21 06:02 Labs: Abnormal Lab Results - Last 24 Hours (Table) 09/24/21 09/24/21 09/24/21 Range/Units 07:07 07:07 12:43 RBC 3.80 L (4.40-5.60) X 10*6/uL Hgb 10.4 L (13.0-17.0) g/dL Hct 36.4 L (39.6-50.0) % MCHC 28.6 L (32.0-37.0) g/dL RDW 16.7 H (11.5-14.5) % MPV 13.8 H (9.5-12.2) fL Absolute Nucleated RBC 0.04 H (0.00-0.00) X 10*3/uL Immature Gran # 0.05 H (0.00-0.04) X 10*3/uL Neutrophils # 8.37 H (1.80-7.70) X 10*3/uL Lymphocytes # 0.38 L (0.90-5.00) X 10*3/uL Eosinophils # 0 L (0.04-0.35) X 10*3/uL NRBC/100 WBC Diff 0.4 H (0.0-0.0) /100 WBCS Chloride 94 L (96-109) mmol/L Carbon Dioxide (20.0-27.5) mmol/L BUN 40.8 H (9.0-27.0) mg/dL Est GFR (CKD-EPI)NonAf 58.8 L (60.0-200.0) BUN/Creatinine Ratio 34.00 H (12.00-20.00) Ratio Glucose 124 H (70-110) mg/dL POC Glucose (mg/dL) 156 H (75-99) mg/dL AST (14-35) U/L ALT (10-49) U/L Total Protein (6.2-8.2) g/dL 09/24/21 09/24/21 09/25/21 Range/Units 17:33 20:16 06:02 RBC (4.40-5.60) X 10*6/uL Hgb (13.0-17.0) g/dL Hct (39.6-50.0) % MCHC (32.0-37.0) g/dL RDW (11.5-14.5) % MPV (9.5-12.2) fL Absolute Nucleated RBC (0.00-0.00) X 10*3/uL Immature Gran # (0.00-0.04) X 10*3/uL Neutrophils # (1.80-7.70) X 10*3/uL Lymphocytes # (0.90-5.00) X 10*3/uL Eosinophils # (0.04-0.35) X 10*3/uL NRBC/100 WBC Diff (0.0-0.0) /100 WBCS Chloride 93 L (96-109) mmol/L Carbon Dioxide 32.8 H (20.0-27.5) mmol/L BUN 45.7 H (9.0-27.0) mg/dL Est GFR (CKD-EPI)NonAf (60.0-200.0) BUN/Creatinine Ratio 41.55 H (12.00-20.00) Ratio Glucose 149 H (70-110) mg/dL POC Glucose (mg/dL) 159 H 163 H (75-99) mg/dL AST 38 H (14-35) U/L ALT 54 H (10-49) U/L Total Protein 6.1 L (6.2-8.2) g/dL 09/25/21 Range/Units 07:06 RBC (4.40-5.60) X 10*6/uL Hgb (13.0-17.0) g/dL Hct (39.6-50.0) % MCHC (32.0-37.0) g/dL RDW (11.5-14.5) % MPV (9.5-12.2) fL Absolute Nucleated RBC (0.00-0.00) X 10*3/uL Immature Gran # (0.00-0.04) X 10*3/uL Neutrophils # (1.80-7.70) X 10*3/uL Lymphocytes # (0.90-5.00) X 10*3/uL Eosinophils # (0.04-0.35) X 10*3/uL NRBC/100 WBC Diff (0.0-0.0) /100 WBCS Chloride (96-109) mmol/L Carbon Dioxide (20.0-27.5) mmol/L BUN (9.0-27.0) mg/dL Est GFR (CKD-EPI)NonAf (60.0-200.0) BUN/Creatinine Ratio (12.00-20.00) Ratio Glucose (70-110) mg/dL POC Glucose (mg/dL) 162 H (75-99) mg/dL AST (14-35) U/L ALT (10-49) U/L Total Protein (6.2-8.2) g/dL
[2021-09-25 17:30] LABS: Glucose,Whole Blood 134 mg/dL (75-99)
[2021-09-25 20:38] LABS: Glucose,Whole Blood 157 mg/dL (75-99)
[2021-09-25] MEDS: TAMSULOSIN 0.4 MG CAP.ER.24H PO SCH (20:46)
[2021-09-25] MEDS: AMITRIPTYLINE HCL 10 MG TAB PO SCH (21:18)
[2021-09-25] MEDS: ESCITALOPRAM 10 MG TAB PO SCH (21:18)
[2021-09-25] MEDS: PRAVASTATIN SODIUM 80 MG TAB PO SCH (21:18)
[2021-09-26] MEDS: PANTOPRAZOLE 40 MG TABLET PO SCH (05:08)
[2021-09-26] MEDS: ALPRAZolam 0.25 MG TAB PO SCH ×3 (05:08→21:51)
[2021-09-26] MEDS: PREGABALIN 100 MG CAP PO SCH ×3 (05:08→21:51)
[2021-09-26] MEDS: methylPREDNISolone SOD SUCCI 125 MG/2 ML VIAL IV SCH ×3 (05:09→17:34)
[2021-09-26] MEDS: HYDROcodone/APAP 7.5-325MG 1 EACH TAB PO PRN ×2 (05:12→21:51)
[2021-09-26 07:06] LABS: Glucose,Whole Blood 144 mg/dL (75-99)
[2021-09-26] MEDS: POTASSIUM CHLORIDE ER 20 MEQ TAB.ER PO SCH ×2 (08:06→21:51)
[2021-09-26] MEDS: RIVAROXABAN 20 MG TAB PO SCH (08:07)
[2021-09-26] MEDS: FUROSEMIDE 40 MG TAB PO SCH ×2 (08:07→15:40)
[2021-09-26] MEDS: INSULIN ASPART (NovoLOG) 100 UNIT/ML VIAL SQ SCH ×4 (08:07→21:50)
[2021-09-26] MEDS: OSELTAMIVIR 75 MG CAP PO SCH (08:07)
[2021-09-26] MEDS: SPIRONOLACTONE 25 MG TAB PO SCH (08:08)
[2021-09-26] MEDS: CLOPIDOGREL 75 MG TAB PO SCH (08:08)
[2021-09-26] MEDS: METOPROLOL SUCCINATE (ER) 100 MG TAB.ER.24H PO SCH (08:08)
[2021-09-26] MEDS: CHOLECALCIFEROL 25 MCG (1000 IU) TABLET PO SCH (08:08)
[2021-09-26] MEDS: ISOSORBIDE MONONITRATE ER 30 MG TAB.ER.24H PO SCH (08:08)
[2021-09-26] MEDS: IPRATROPIUM-ALBUTEROL 3 ML NEB INHALATION SCH ×4 (08:29→20:08)
[2021-09-26] MEDS: SYMBICORT 160-4.5 MCG INHALER INHALATION SCH ×2 (08:30→20:08)
[2021-09-26 11:46] LABS: Glucose,Whole Blood 246 mg/dL (75-99)
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
[2021-09-26 16:58] LABS: Glucose,Whole Blood 101 mg/dL (75-99)
[2021-09-26] MEDS ORDERED: methylPREDNISolone SOD SUCCI 125 MG/2 ML VIAL IV SCH (18:00)
[2021-09-26 20:18] LABS: Glucose,Whole Blood 140 mg/dL (75-99)
[2021-09-26] MEDS: AMITRIPTYLINE HCL 10 MG TAB PO SCH (21:50)
[2021-09-26] MEDS: ESCITALOPRAM 10 MG TAB PO SCH (21:50)
[2021-09-26] MEDS: TAMSULOSIN 0.4 MG CAP.ER.24H PO SCH (21:51)
[2021-09-26] MEDS: PRAVASTATIN SODIUM 80 MG TAB PO SCH (21:51)
--- NOTE | 2021-09-26 22:45 | P.PN ---
Subjective Progress Note Date: 09/26/21 This is a pleasant 76-year-old male who was recently admitted with chronic obstructive pulmonary disease acute exacerbation along with fluid overload and also found to be flu B+ and is being closely monitored. Pulmonary, cardiology, infectious disease following an patient is maintained on Tamiflu also breathing inhalational treatments and IV steroids and will continue. She is currently maintained on 4 L of oxygen via nasal cannula. Patient continues with weakness and will have PT/OT evaluate the patient. Recommend follow-up chest x-ray in the a.m. Patient currently denies chest pain or palpitations. Patient is afebrile. Patient tolerating diet with no reports of nausea or vomiting noted. 09/25/2021 Patient is seen in follow-up today continues to be dyspneic with minimal exertion and currently maintained on 2 L of oxygen via nasal cannula. Patient normally wears oxygen in the outpatient setting. Patient continues on IV steroids along with breathing inhalational treatments and Tamiflu and will continue. Blood sugars mildly elevated in the mid 100s currently being managed with sliding scale and recommend continue with Accu-Cheks before meals and at bedtime. Chest x-ray done today shows bilateral diffuse interstitial pattern with bilateral infiltrate and pleural effusion superimposed on a background COPD and a correlate for possible CHF otherwise consider diffuse pneumonia. Patient is continued on by mouth Lasix 40 mg twice daily and will continue. Patient denies worsening shortness of breath, denies chest pain or palpitations. Patient is afebrile. Patient tolerating diet with no reports of nausea or vomiting noted. WBC within normal limits at 9.7. 09/26/2021 Patient seen in follow up and continues with multiple medical consultations following. Patient is continued on lasix and will transition to IV and repeat labs in am as patient continues with some generalized edema. Continues on 4L of 02 and tamiflu with ID following. Sputum cultured and pending. Patient with continued weakness and PT/OT following. Patient denies worsening shortness of breath while at rest, reports to extreme dyspnea with minimal exertion. Patient denies chest pain. Patient is afebrile. Review of systems: Constitutional: No reports of fatigue, fever, or chills Cardiovascular: No reports of chest pain or palpitations Respiratory: reports of continued shortness of breath and cough now with more phlegm production that is greenish GI: No reports of nausea, no reports of of vomiting, no reports of diarrhea : No reports of dysuria or retention Neurovascular: reports of generalized weakness All medications have been reviewed Active Medications Hydrocodone Bitart/Acetaminophen (Hydrocodone/Apap 7.5-325mg 1 Each Tab) 1 each PO Q6H PRN PRN Reason: Pain Last Admin: 09/26/21 21:51 Dose: 1 each Documented by: Albuterol/Ipratropium (Ipratropium-Albuterol 3 Ml Neb) 3 ml INHALATION RT-Q4H PRN PRN Reason: Shortness Of Breath Or Wheezing Albuterol/Ipratropium (Ipratropium-Albuterol 3 Ml Neb) 3 ml INHALATION RT-QID [facility] Last Admin: 09/26/21 20:08 Dose: Not Given Documented by: Alprazolam (Alprazolam 0.25 Mg Tab) 0.25 mg PO Q8H [facility] Last Admin: 09/26/21 21:51 Dose: 0.25 mg Documented by: Amitriptyline HCl (Amitriptyline Hcl 10 Mg Tab) 10 mg PO [facility] Last Admin: 09/26/21 21:50 Dose: 10 mg Documented by: Budesonide/Formoterol Fumarate (Symbicort 160-4.5 Mcg Inhaler) 2 puff INHALATION RT-BID [facility] Last Admin: 09/26/21 20:08 Dose: Not Given Documented by: Cholecalciferol (Cholecalciferol 25 Mcg (1000 Iu) Tablet) 50 mcg PO DAILY [facility] Last Admin: 09/26/21 08:08 Dose: 50 mcg Documented by: Clopidogrel Bisulfate (Clopidogrel 75 Mg Tab) 75 mg PO DAILY [facility] Last Admin: 09/26/21 08:08 Dose: 75 mg Documented by: Escitalopram Oxalate (Escitalopram 10 Mg Tab) 10 mg PO [facility] Last Admin: 09/26/21 21:50 Dose: 10 mg Documented by: Furosemide (Furosemide 10 Mg/Ml 4 Ml Vial) 40 mg IV Q12HR [facility] Insulin Aspart (Insulin Aspart (Novolog) 100 Unit/Ml Vial) 0 unit SQ [facility]; Protocol Last Admin: 09/26/21 21:50 Dose: 1 unit Documented by: Isosorbide Mononitrate (Isosorbide Mononitrate Er 30 Mg Tab.Er.24h) 30 mg PO DAILY [facility] Last Admin: 09/26/21 08:08 Dose: 30 mg Documented by: Methylprednisolone Sodium Succinate (Methylprednisolone Sod Succi 125 Mg/2 Ml Vial) 60 mg IV Q6HR [facility] Last Admin: 09/26/21 17:34 Dose: 60 mg Documented by: Metoprolol Succinate (Metoprolol Succinate (Er) 100 Mg Tab.Er.24h) 100 mg PO DAILY [facility] Last Admin: 09/26/21 08:08 Dose: 100 mg Documented by: Pantoprazole Sodium (Pantoprazole 40 Mg Tablet) 40 mg PO DAILY@0600 [facility] Last Admin: 09/26/21 05:08 Dose: 40 mg Documented by: Potassium Chloride (Potassium Chloride Er 20 Meq Tab.Er) 20 meq PO BID [facility] Last Admin: 09/26/21 21:51 Dose: 20 meq Documented by: Pravastatin Sodium (Pravastatin Sodium 80 Mg Tab) 80 mg PO HS [facility] Last Admin: 09/26/21 21:51 Dose: 80 mg Documented by: Pregabalin (Pregabalin 100 Mg Cap) 200 mg PO TID@0600,1400,2200 [facility] Last Admin: 09/26/21 21:51 Dose: 200 mg Documented by: Rivaroxaban (Rivaroxaban 20 Mg Tab) 20 mg PO DAILY [facility]; Protocol Last Admin: 09/26/21 08:07 Dose: 20 mg Documented by: Spironolactone (Spironolactone 25 Mg Tab) 25 mg PO DAILY [facility] Last Admin: 09/26/21 08:08 Dose: 25 mg Documented by: Tamsulosin HCl (Tamsulosin 0.4 Mg Cap.Er.24h) 0.4 mg PO [facility] Last Admin: 09/26/21 21:51 Dose: 0.4 mg Documented by: PHYSICAL EXAMINATION: GENERAL: The patient is alert and oriented x4, Well developed, well nourished. HEENT: Pupils are round and equally reacting to light. EOMI. no scleral icterus. No conjunctival pallor. Normocephalic, atraumatic. No pharyngeal erythema. No thyromegaly. CARDIOVASCULAR: S1 and S2 muffled PULMONARY: diminished breath sounds bilaterally with no wheezing or rhonchi noted. ABDOMEN: soft. Nontender on exam. obese. non-distended, normoactive bowel sounds. No palpable organomegaly. MUSCULOSKELETAL: No joint swelling or deformity. EXTREMITIES: No cyanosis, clubbing, or pedal edema. generalized edema noted NEUROLOGICAL: Gross neurological examination did not reveal any focal deficits. SKIN: No rashes. Assessment: Shortness of breath, possible congestive heart failure diastolic dysfunction, acute exacerbation Acute on chronic hypoxemic respiratory failure secondary to CHF exacerbation Chronic obstructive pulmonary disease, acute exacerbation Influenza B positive Possible pneumonia history of chronic atrial fibrillation History of CVA, TIA Gait dysfunction GI prophylaxis DVT prophylaxis Full code Plan: Recommend to continue with current medications and symptomatic management. Pu lmonary, cardiology, infectious disease following and patient is maintained on Tamiflu along with steroids, breathing inhalational treatments, and Lasix and will continue. Lasix being transitioned to IV for 24 hours as patient continues with generalized edema. Appropriate home medications have been resumed. PT/OT following for continued weakness. Patient reports he will be returning home with his once discharged. Family also refusing rehab at this time. Patient does wear oxygen in the outpatient setting normally 4 L chronically. Recommend to continue closely monitoring blood sugars as well and continue sliding scale and Accu-Cheks before meals and at bedtime. Repeat labs ordered. The impression and plan of care has been dictated by Thelma Verma, nurse practitioner as directed. MD Shilpi I have performed a history and examination and MDM of this patient, discussed the same with the dictator, and agree with the dictator's assessment and plan as written ,documented as a scribe. Based on total visit time, I have performed more than 50% of the visit. Objective - Vital Signs Vital signs: Vital Signs Temp 97.8 F 09/26/21 05:00 Pulse 74 09/26/21 09:04 Resp 18 09/26/21 05:00 BP 118/70 09/26/21 09:04 Pulse Ox 93 L 09/26/21 05:00 Intake & Output 09/25/21 09/26/21 09/26/21 18:59 06:59 18:59 Intake Total 360 Output Total 600 Balance -600 360 Weight 116.5 kg Intake: Oral 360 Output: Urine 600 Other: Voiding Method Toilet Toilet Urinal Urinal # Voids 2 - Labs CBC & Chem 7: 09/25/21 06:02 09/25/21 06:02 Labs: Abnormal Lab Results - Last 24 Hours (Table) 09/25/21 09/25/21 09/25/21 Range/Units 06:02 06:02 11:59 RBC 3.55 L (4.40-5.60) X 10*6/uL Hgb 9.7 L (13.0-17.0) g/dL Hct 33.0 L (39.6-50.0) % MCHC 29.4 L (32.0-37.0) g/dL RDW 16.3 H (11.5-14.5) % MPV 13.1 H (9.5-12.2) fL Absolute Nucleated RBC 0.09 H (0.00-0.00) X 10*3/uL Immature Gran # 0.07 H (0.00-0.04) X 10*3/uL Neutrophils # 8.98 H (1.80-7.70) X 10*3/uL Lymphocytes # 0.31 L (0.90-5.00) X 10*3/uL Eosinophils # 0 L (0.04-0.35) X 10*3/uL NRBC/100 WBC Diff 0.9 H (0.0-0.0) /100 WBCS Chloride 93 L (96-109) mmol/L Carbon Dioxide 32.8 H (20.0-27.5) mmol/L BUN 45.7 H (9.0-27.0) mg/dL BUN/Creatinine Ratio 41.55 H (12.00-20.00) Ratio Glucose 149 H (70-110) mg/dL POC Glucose (mg/dL) 149 H (75-99) mg/dL AST 38 H (14-35) U/L ALT 54 H (10-49) U/L Total Protein 6.1 L (6.2-8.2) g/dL 09/25/21 09/25/21 09/26/21 Range/Units 17:28 20:37 07:02 RBC (4.40-5.60) X 10*6/uL Hgb (13.0-17.0) g/dL Hct (39.6-50.0) % MCHC (32.0-37.0) g/dL RDW (11.5-14.5) % MPV (9.5-12.2) fL Absolute Nucleated RBC (0.00-0.00) X 10*3/uL Immature Gran # (0.00-0.04) X 10*3/uL Neutrophils # (1.80-7.70) X 10*3/uL Lymphocytes # (0.90-5.00) X 10*3/uL Eosinophils # (0.04-0.35) X 10*3/uL NRBC/100 WBC Diff (0.0-0.0) /100 WBCS Chloride (96-109) mmol/L Carbon Dioxide (20.0-27.5) mmol/L BUN (9.0-27.0) mg/dL BUN/Creatinine Ratio (12.00-20.00) Ratio Glucose (70-110) mg/dL POC Glucose (mg/dL) 134 H 157 H 144 H (75-99) mg/dL AST (14-35) U/L ALT (10-49) U/L Total Protein (6.2-8.2) g/dL
[2021-09-27] MEDS: FUROSEMIDE 10 MG/ML 4 ML VIAL IV SCH ×3 (00:03→21:30)
[2021-09-27] MEDS: methylPREDNISolone SOD SUCCI 125 MG/2 ML VIAL IV SCH ×5 (00:03→23:50)
[2021-09-27] MEDS: ALPRAZolam 0.25 MG TAB PO SCH ×3 (05:06→21:30)
[2021-09-27] MEDS: PREGABALIN 100 MG CAP PO SCH ×3 (05:07→21:29)
[2021-09-27] MEDS: PANTOPRAZOLE 40 MG TABLET PO SCH (05:07)
[2021-09-27] MEDS: HYDROcodone/APAP 7.5-325MG 1 EACH TAB PO PRN ×2 (05:07→21:30)
[2021-09-27 06:39] LABS: Basophils % (A) 0 %; Eosinophils % (A) 0 %; HCT 33.6 % (39.0-53.0); HGB 10.1 gm/dL (13.0-17.5); Hypochromasia Marked; Lymphocytes # (A) 0.5 k/uL (1.0-4.8); Lymphocytes % (A) 5 %; MCHC 30.2 g/dL (31.0-37.0); MCV 92.6 fL (80.0-100.0); Mean Platelet Volume 10.9; Monocytes # (A) 0.3 k/uL (0-1.0); Monocytes % (A) 4 %; Neutrophils # (A) 8.1 k/uL (1.3-7.7); Neutrophils % (A) 90 %; Platelet Count 256 k/uL (150-450); Poikilocytosis Slight; RBC 3.62 m/uL (4.30-5.90); RDW 15.9 % (11.5-15.5)
[2021-09-27 06:40] LABS: African American GFR (CKD) >90 (>60 ml/min/1.73 sqM); Anion Gap 6 mmol/L; Blood Urea Nitrogen 53 mg/dL (9-20); Calcium 8.2 mg/dL (8.4-10.2); Carbon Dioxide 40 mmol/L (22-30); Chloride 91 mmol/L (98-107); Glucose 151 mg/dL (74-99); Non-African American GFR(CKD) 79 (>60 ml/min/1.73 sqM); Potassium 4.2 mmol/L (3.5-5.1); Sodium 137 mmol/L (137-145)
[2021-09-27 07:14] LABS: Glucose,Whole Blood 149 mg/dL (75-99)
[2021-09-27] MEDS: INSULIN ASPART (NovoLOG) 100 UNIT/ML VIAL SQ SCH ×4 (07:30→21:30)
[2021-09-27] MEDS: POTASSIUM CHLORIDE ER 20 MEQ TAB.ER PO SCH ×2 (07:31→21:29)
[2021-09-27] MEDS: CHOLECALCIFEROL 25 MCG (1000 IU) TABLET PO SCH (07:32)
[2021-09-27] MEDS: ISOSORBIDE MONONITRATE ER 30 MG TAB.ER.24H PO SCH (07:32)
[2021-09-27] MEDS: CLOPIDOGREL 75 MG TAB PO SCH (07:34)
[2021-09-27] MEDS: RIVAROXABAN 20 MG TAB PO SCH (07:35)
[2021-09-27] MEDS: METOPROLOL SUCCINATE (ER) 100 MG TAB.ER.24H PO SCH (07:35)
[2021-09-27] MEDS: SPIRONOLACTONE 25 MG TAB PO SCH (07:36)
[2021-09-27] MEDS: IPRATROPIUM-ALBUTEROL 3 ML NEB INHALATION SCH ×4 (08:21→21:00)
[2021-09-27] MEDS: SYMBICORT 160-4.5 MCG INHALER INHALATION SCH ×2 (08:22→21:01)
[2021-09-27 11:35] LABS: Glucose,Whole Blood 193 mg/dL (75-99)
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
[2021-09-27 14:02] VITALS: BMI 33.5
--- NOTE | 2021-09-27 14:43 | P.PN ---
Subjective Progress Note Date: 09/27/21 This is a pleasant 76-year-old male who was recently admitted with chronic obstructive pulmonary disease acute exacerbation along with fluid overload and also found to be flu B+ and is being closely monitored. Pulmonary, cardiology, infectious disease following an patient is maintained on Tamiflu also breathing inhalational treatments and IV steroids and will continue. She is currently maintained on 4 L of oxygen via nasal cannula. Patient continues with weakness and will have PT/OT evaluate the patient. Recommend follow-up chest x-ray in the a.m. Patient currently denies chest pain or palpitations. Patient is afebrile. Patient tolerating diet with no reports of nausea or vomiting noted. 09/25/2021 Patient is seen in follow-up today continues to be dyspneic with minimal exertion and currently maintained on 2 L of oxygen via nasal cannula. Patient normally wears oxygen in the outpatient setting. Patient continues on IV steroids along with breathing inhalational treatments and Tamiflu and will continue. Blood sugars mildly elevated in the mid 100s currently being managed with sliding scale and recommend continue with Accu-Cheks before meals and at bedtime. Chest x-ray done today shows bilateral diffuse interstitial pattern with bilateral infiltrate and pleural effusion superimposed on a background COPD and a correlate for possible CHF otherwise consider diffuse pneumonia. Patient is continued on by mouth Lasix 40 mg twice daily and will continue. Patient denies worsening shortness of breath, denies chest pain or palpitations. Patient is afebrile. Patient tolerating diet with no reports of nausea or vomiting noted. WBC within normal limits at 9.7. 09/26/2021 Patient seen in follow up and continues with multiple medical consultations following. Patient is continued on lasix and will transition to IV and repeat labs in am as patient continues with some generalized edema. Continues on 4L of 02 and tamiflu with ID following. Sputum cultured and pending. Patient with continued weakness and PT/OT following. Patient denies worsening shortness of breath while at rest, reports to extreme dyspnea with minimal exertion. Patient denies chest pain. Patient is afebrile. 09/27/2021 Patient is seen and evaluated in follow-up today continues to be short of breath although reports to not feeling any ascending and shortness of breath. Patient continued on 4 L via nasal cannula. Patient continues with lower extremity edema and generalized edema noted and tolerating IV Lasix and will continue with follow-up labs and a repeat chest x-ray in the morning. Pulmonary and cardio following an patient to continue with breathing inhalational treatments along with IV steroids. Recommend continue with Accu-Cheks before meals and at bedtime and sliding scale as needed. Patient denies chest pain or palpitations. Patient is afebrile. Preliminary sputum culture showing moderate gram-negative bacilli with a few yeast and few gram-positive cocci and awaiting for cultures to finalize. Review of systems: Constitutional: No reports of fatigue, fever, or chills Cardiovascular: No reports of chest pain or palpitations Respiratory: reports of continued shortness of breath and cough now with more phlegm production that is greenish GI: No reports of nausea, no reports of of vomiting, no reports of diarrhea : No reports of dysuria or retention Neurovascular: reports of generalized weakness All medications have been reviewed Active Medications Hydrocodone Bitart/Acetaminophen (Hydrocodone/Apap 7.5-325mg 1 Each Tab) 1 each PO Q6H PRN PRN Reason: Pain Last Admin: 09/27/21 05:07 Dose: 1 each Documented by: Albuterol/Ipratropium (Ipratropium-Albuterol 3 Ml Neb) 3 ml INHALATION RT-Q4H PRN PRN Reason: Shortness Of Breath Or Wheezing Albuterol/Ipratropium (Ipratropium-Albuterol 3 Ml Neb) 3 ml INHALATION RT-QID [facility] Last Admin: 09/27/21 11:52 Dose: 3 ml Documented by: Alprazolam (Alprazolam 0.25 Mg Tab) 0.25 mg PO Q8H [facility] Last Admin: 09/27/21 05:06 Dose: 0.25 mg Documented by: Amitriptyline HCl (Amitriptyline Hcl 10 Mg Tab) 10 mg PO HS [facility] Last Admin: 09/26/21 21:50 Dose: 10 mg Documented by: Budesonide/Formoterol Fumarate (Symbicort 160-4.5 Mcg Inhaler) 2 puff INHALATION RT-BID [facility] Last Admin: 09/27/21 08:22 Dose: 2 puff Documented by: Cholecalciferol (Cholecalciferol 25 Mcg (1000 Iu) Tablet) 50 mcg PO DAILY [facility] Last Admin: 09/27/21 07:32 Dose: 50 mcg Documented by: Clopidogrel Bisulfate (Clopidogrel 75 Mg Tab) 75 mg PO DAILY [facility] Last Admin: 09/27/21 07:34 Dose: 75 mg Documented by: Escitalopram Oxalate (Escitalopram 10 Mg Tab) 10 mg PO [facility] Last Admin: 09/26/21 21:50 Dose: 10 mg Documented by: Furosemide (Furosemide 10 Mg/Ml 4 Ml Vial) 40 mg IV Q12HR [facility] Last Admin: 09/27/21 07:31 Dose: 40 mg Documented by: Insulin Aspart (Insulin Aspart (Novolog) 100 Unit/Ml Vial) 0 unit SQ ACHS [facility]; Protocol Last Admin: 09/27/21 13:08 Dose: 3 unit Documented by: Isosorbide Mononitrate (Isosorbide Mononitrate Er 30 Mg Tab.Er.24h) 30 mg PO DAILY [facility] Last Admin: 09/27/21 07:32 Dose: 30 mg Documented by: Methylprednisolone Sodium Succinate (Methylprednisolone Sod Succi 125 Mg/2 Ml Vial) 60 mg IV Q6HR [facility] Last Admin: 09/27/21 13:09 Dose: 60 mg Documented by: Metoprolol Succinate (Metoprolol Succinate (Er) 100 Mg Tab.Er.24h) 100 mg PO DAILY [facility] Last Admin: 09/27/21 07:35 Dose: 100 mg Documented by: Pantoprazole Sodium (Pantoprazole 40 Mg Tablet) 40 mg PO DAILY@0600 [facility] Last Admin: 09/27/21 05:07 Dose: 40 mg Documented by: Potassium Chloride (Potassium Chloride Er 20 Meq Tab.Er) 20 meq PO BID [facility] Last Admin: 09/27/21 07:31 Dose: 20 meq Documented by: Pravastatin Sodium (Pravastatin Sodium 80 Mg Tab) 80 mg PO [facility] Last Admin: 09/26/21 21:51 Dose: 80 mg Documented by: Pregabalin (Pregabalin 100 Mg Cap) 200 mg PO TID@0600,1400,2200 [facility] Last Admin: 09/27/21 05:07 Dose: 200 mg Documented by: Rivaroxaban (Rivaroxaban 20 Mg Tab) 20 mg PO DAILY [facility]; Protocol Last Admin: 09/27/21 07:35 Dose: 20 mg Documented by: Spironolactone (Spironolactone 25 Mg Tab) 25 mg PO DAILY [facility] Last Admin: 09/27/21 07:36 Dose: 25 mg Documented by: Tamsulosin HCl (Tamsulosin 0.4 Mg Cap.Er.24h) 0.4 mg PO HS [facility] Last Admin: 09/26/21 21:51 Dose: 0.4 mg Documented by: PHYSICAL EXAMINATION: GENERAL: The patient is alert and oriented x4, Well developed, well nourished. HEENT: Pupils are round and equally reacting to light. EOMI. no scleral icterus. No conjunctival pallor. Normocephalic, atraumatic. No pharyngeal erythema. No thyromegaly. CARDIOVASCULAR: S1 and S2 muffled PULMONARY: diminished breath sounds bilaterally with no wheezing or rhonchi noted. ABDOMEN: soft. Nontender on exam. obese. non-distended, normoactive bowel sounds. No palpable organomegaly. MUSCULOSKELETAL: No joint swelling or deformity. EXTREMITIES: No cyanosis, clubbing, or pedal edema. generalized edema noted NEUROLOGICAL: Gross neurological examination did not reveal any focal deficits. SKIN: No rashes. Assessment: Shortness of breath, acute on chronic congestive heart failure diastolic dysfunction, acute exacerbation Acute on chronic hypoxemic respiratory failure secondary to CHF exacerbation Chronic obstructive pulmonary disease, acute exacerbation Influenza B positive Possible pneumonia history of chronic atrial fibrillation History of CVA, TIA Gait dysfunction GI prophylaxis DVT prophylaxis Full code Plan: Recommend to continue with current medications and symptomatic management. Pulmonary, cardiology, infectious disease following and patient has completed Tamiflu. Patient continues on IV steroids, breathing inhalational treatments, and Lasix and will continue. Lasix IV for 24 hours as patient continues with generalized edema. Patient reports to slight improvement in generalized edema and will continue IV Lasix for another 24 hours with follow-up labs. Appropriate home medications have been resumed. PT/OT following for continued weakness. Patient reports he will be returning home with his once discharged. Family also refusing rehab at this time. Patient does wear oxygen in the outpatient setting normally 4 L chronically. Recommend to continue closely monitoring blood sugars as well and continue sliding scale and Accu- Cheks before meals and at bedtime. Repeat labs ordered. Follow-up chest x-ray in the morning. The impression and plan of care has been dictated by Thelma Verma, nurse practitioner as directed. MD Shilpi I have performed a history and examination and MDM of this patient, discussed the same with the dictator, and agree with the dictator's assessment and plan as written ,documented as a scribe. Based on total visit time, I have performed more than 50% of the visit. Objective - Vital Signs Vital signs: Vital Signs Temp 97.5 F L 09/27/21 05:00 Pulse 77 09/27/21 08:34 Resp 16 09/27/21 05:00 BP 112/72 09/27/21 07:28 Pulse Ox 89 L 09/27/21 08:22 Intake & Output 09/26/21 09/27/21 09/27/21 18:59 06:59 18:59 Intake Total 240 Output Total 600 800 Balance -360 -800 Weight 115.5 kg Intake: Oral 240 Output: Urine 600 800 Other: Voiding Method Toilet Toilet Urinal Urinal # Voids 2 - Labs CBC & Chem 7: 09/27/21 06:00 09/27/21 06:00 Labs: Abnormal Lab Results - Last 24 Hours (Table) 09/26/21 09/26/21 09/26/21 Range/Units 11:43 16:56 20:16 RBC (4.30-5.90) m/uL Hgb (13.0-17.5) gm/dL Hct (39.0-53.0) % MCHC (31.0-37.0) g/dL RDW (11.5-15.5) % Neutrophils # (1.3-7.7) k/uL Lymphocytes # (1.0-4.8) k/uL Chloride (98-107) mmol/L Carbon Dioxide (22-30) mmol/L BUN (9-20) mg/dL Glucose (74-99) mg/dL POC Glucose (mg/dL) 246 H 101 H 140 H (75-99) mg/dL Calcium (8.4-10.2) mg/dL 09/27/21 09/27/21 09/27/21 Range/Units 06:00 06:00 07:13 RBC 3.62 L (4.30-5.90) m/uL Hgb 10.1 L (13.0-17.5) gm/dL Hct 33.6 L (39.0-53.0) % MCHC 30.2 L (31.0-37.0) g/dL RDW 15.9 H (11.5-15.5) % Neutrophils # 8.1 H (1.3-7.7) k/uL Lymphocytes # 0.5 L (1.0-4.8) k/uL Chloride 91 L (98-107) mmol/L Carbon Dioxide 40 H (22-30) mmol/L BUN 53 H (9-20) mg/dL Glucose 151 H (74-99) mg/dL POC Glucose (mg/dL) 149 H (75-99) mg/dL Calcium 8.2 L (8.4-10.2) mg/dL
[2021-09-27 16:59] LABS: Glucose,Whole Blood 219 mg/dL (75-99)
--- NOTE | 2021-09-27 17:40 | P.PN ---
Subjective Progress Note Date: 09/25/21 Principal diagnosis: Acute influenza B Patient is a 76 year male with a past medical history significant for COPD presenting to the hospital with increasing shortness of breath or cough patient been diagnosed with acute influenza B. On today's evaluation that is 09/25/2021, the patient continues to be afebrile, the patient is still complaining of shortness of breath , the patient did have a cough and is bringing up some clear sputum but no hemoptysis, the patient denies any abdominal pain no diarrhea Objective - Vital Signs Vital signs: Vital Signs Temp 97.4 F L 09/25/21 12:06 Pulse 74 09/25/21 12:06 Resp 18 09/25/21 12:06 BP 103/64 09/25/21 12:06 Pulse Ox 90 L 09/25/21 12:06 Intake & Output 09/24/21 09/25/21 09/25/21 18:59 06:59 18:59 Intake Total 1080 Balance 1080 Weight 118.2 kg Intake: Oral 1080 Other: Voiding Method Toilet Toilet Toilet Urinal Urinal Urinal # Voids 3 1 - Exam GENERAL DESCRIPTION: An elderly male lying in bed in no distress RESPIRATORY SYSTEM: Unlabored breathing , decreased intensity breath sounds HEART: S1 S2 regular rate and rhythm , ABDOMEN: Soft , no tenderness EXTREMITIES: No edema feet - Labs CBC & Chem 7: 09/27/21 06:00 09/27/21 06:00 Labs: Abnormal Lab Results - Last 24 Hours (Table) 09/24/21 09/24/21 09/24/21 Range/Units 07:07 12:43 17:33 RBC 3.80 L (4.40-5.60) X 10*6/uL Hgb 10.4 L (13.0-17.0) g/dL Hct 36.4 L (39.6-50.0) % MCHC 28.6 L (32.0-37.0) g/dL RDW 16.7 H (11.5-14.5) % MPV 13.8 H (9.5-12.2) fL Absolute Nucleated RBC 0.04 H (0.00-0.00) X 10*3/uL Immature Gran # 0.05 H (0.00-0.04) X 10*3/uL Neutrophils # 8.37 H (1.80-7.70) X 10*3/uL Lymphocytes # 0.38 L (0.90-5.00) X 10*3/uL Eosinophils # 0 L (0.04-0.35) X 10*3/uL NRBC/100 WBC Diff 0.4 H (0.0-0.0) /100 WBCS Chloride (96-109) mmol/L Carbon Dioxide (20.0-27.5) mmol/L BUN (9.0-27.0) mg/dL BUN/Creatinine Ratio (12.00-20.00) Ratio Glucose (70-110) mg/dL POC Glucose (mg/dL) 156 H 159 H (75-99) mg/dL AST (14-35) U/L ALT (10-49) U/L Total Protein (6.2-8.2) g/dL 09/24/21 09/25/21 09/25/21 Range/Units 20:16 06:02 06:02 RBC 3.55 L (4.40-5.60) X 10*6/uL Hgb 9.7 L (13.0-17.0) g/dL Hct 33.0 L (39.6-50.0) % MCHC 29.4 L (32.0-37.0) g/dL RDW 16.3 H (11.5-14.5) % MPV 13.1 H (9.5-12.2) fL Absolute Nucleated RBC 0.09 H (0.00-0.00) X 10*3/uL Immature Gran # 0.07 H (0.00-0.04) X 10*3/uL Neutrophils # 8.98 H (1.80-7.70) X 10*3/uL Lymphocytes # 0.31 L (0.90-5.00) X 10*3/uL Eosinophils # 0 L (0.04-0.35) X 10*3/uL NRBC/100 WBC Diff 0.9 H (0.0-0.0) /100 WBCS Chloride 93 L (96-109) mmol/L Carbon Dioxide 32.8 H (20.0-27.5) mmol/L BUN 45.7 H (9.0-27.0) mg/dL BUN/Creatinine Ratio 41.55 H (12.00-20.00) Ratio Glucose 149 H (70-110) mg/dL POC Glucose (mg/dL) 163 H (75-99) mg/dL AST 38 H (14-35) U/L ALT 54 H (10-49) U/L Total Protein 6.1 L (6.2-8.2) g/dL 09/25/21 09/25/21 Range/Units 07:06 11:59 RBC (4.40-5.60) X 10*6/uL Hgb (13.0-17.0) g/dL Hct (39.6-50.0) % MCHC (32.0-37.0) g/dL RDW (11.5-14.5) % MPV (9.5-12.2) fL Absolute Nucleated RBC (0.00-0.00) X 10*3/uL Immature Gran # (0.00-0.04) X 10*3/uL Neutrophils # (1.80-7.70) X 10*3/uL Lymphocytes # (0.90-5.00) X 10*3/uL Eosinophils # (0.04-0.35) X 10*3/uL NRBC/100 WBC Diff (0.0-0.0) /100 WBCS Chloride (96-109) mmol/L Carbon Dioxide (20.0-27.5) mmol/L BUN (9.0-27.0) mg/dL BUN/Creatinine Ratio (12.00-20.00) Ratio Glucose (70-110) mg/dL POC Glucose (mg/dL) 162 H 149 H (75-99) mg/dL AST (14-35) U/L ALT (10-49) U/L Total Protein (6.2-8.2) g/dL Assessment and Plan (1) Influenza B Current Visit: Yes Status: Acute Code(s): J10.1 - FLU DUE TO OTH IDENT INFLUENZA VIRUS W OTH RESP MANIFEST SNOMED Code(s): 50121183 Plan: 1patient presented to hospital with increasing shortness of breath and cough in this patient has been diagnosed with acute influenza currently with no evidence of any secondary bacterial pneumonia he did have a normal procalcitonin and Covid testing was negative. 2patient seemed to have shown some clinical improvement and will finish his 5 day course of Tamiflu 75 mg twice a day 3there is no need for systemic antibiotic therapy. Time with Patient: Less than 30
--- NOTE | 2021-09-27 17:42 | P.PN ---
Subjective Progress Note Date: 09/26/21 Principal diagnosis: Acute influenza B Patient is a 76 year male with a past medical history significant for COPD presenting to the hospital with increasing shortness of breath or cough patient been diagnosed with acute influenza B. On today's evaluation that is 09/26/2021, the patient is afebrile, the patient is breathing slightly comfortable today, the patient denies having any chest pain he did have some cough not bringing up any sputum no vomiting no abdominal pain no diarrhea Objective - Vital Signs Vital signs: Vital Signs Temp 97.4 F L 09/26/21 11:40 Pulse 83 09/26/21 11:40 Resp 18 09/26/21 11:40 BP 117/71 09/26/21 11:40 Pulse Ox 98 09/26/21 11:40 Intake & Output 09/25/21 09/26/21 09/26/21 18:59 06:59 18:59 Intake Total 360 Output Total 600 Balance -600 360 Weight 116.5 kg Intake: Oral 360 Output: Urine 600 Other: Voiding Method Toilet Toilet Toilet Urinal Urinal Urinal # Voids 2 - Exam GENERAL DESCRIPTION: An elderly male lying in bed in no distress RESPIRATORY SYSTEM: Unlabored breathing , decreased intensity breath sounds HEART: S1 S2 regular rate and rhythm , ABDOMEN: Soft , no tenderness EXTREMITIES: No edema feet - Labs CBC & Chem 7: 09/27/21 06:00 09/27/21 06:00 Labs: Abnormal Lab Results - Last 24 Hours (Table) 09/25/21 09/25/21 09/26/21 Range/Units 17:28 20:37 07:02 POC Glucose (mg/dL) 134 H 157 H 144 H (75-99) mg/dL 09/26/21 Range/Units 11:43 POC Glucose (mg/dL) 246 H (75-99) mg/dL Assessment and Plan (1) Influenza B Current Visit: Yes Status: Acute Code(s): J10.1 - FLU DUE TO OTH IDENT INFLUENZA VIRUS W OTH RESP MANIFEST SNOMED Code(s): 05062422 Plan: 1patient presented to hospital with increasing shortness of breath and cough in this patient has been diagnosed with acute influenza currently with no evidence of any secondary bacterial pneumonia he did have a normal procalcitonin and Covid testing was negative. 2patient has completed a 5 day course of Tamiflu for underlying influenza B 3suspicious for secondary bacterial pneumonia, there is no need for systemic antibiotic therapy. We will check his inflammatory marker and pro-calcitonin Time with Patient: Less than 30
--- NOTE | 2021-09-27 17:43 | P.PN ---
Subjective Progress Note Date: 09/27/21 Principal diagnosis: Acute influenza B Patient is a 76 year male with a past medical history significant for COPD presenting to the hospital with increasing shortness of breath or cough patient been diagnosed with acute influenza B. On today's evaluation that is 09/27/2021, the patient denies any fever or any chills, the patient is breathing more comfortable today, the patient denies having any chest pain, the patient cough is decreased intensity and is not bringing up any sputum, the patient denies any abdominal pain and no diarrhea Objective - Vital Signs Vital signs: Vital Signs Temp 97.3 F L 09/27/21 11:40 Pulse 63 09/27/21 12:05 Resp 14 09/27/21 11:40 BP 110/70 09/27/21 11:40 Pulse Ox 93 L 09/27/21 11:40 Intake & Output 09/26/21 09/27/21 09/27/21 18:59 06:59 18:59 Intake Total 240 Output Total 600 800 Balance -360 -800 Weight 115.5 kg Intake: Oral 240 Output: Urine 600 800 Other: Voiding Method Toilet Toilet Urinal Urinal # Voids 2 - Exam GENERAL DESCRIPTION: An elderly male lying in bed in no distress RESPIRATORY SYSTEM: Unlabored breathing , decreased intensity breath sounds HEART: S1 S2 regular rate and rhythm , ABDOMEN: Soft , no tenderness EXTREMITIES: No edema feet - Labs CBC & Chem 7: 09/27/21 06:00 09/27/21 06:00 Labs: Abnormal Lab Results - Last 24 Hours (Table) 09/26/21 09/26/21 09/27/21 Range/Units 16:56 20:16 06:00 RBC 3.62 L (4.30-5.90) m/uL Hgb 10.1 L (13.0-17.5) gm/dL Hct 33.6 L (39.0-53.0) % MCHC 30.2 L (31.0-37.0) g/dL RDW 15.9 H (11.5-15.5) % Neutrophils # 8.1 H (1.3-7.7) k/uL Lymphocytes # 0.5 L (1.0-4.8) k/uL Chloride (98-107) mmol/L Carbon Dioxide (22-30) mmol/L BUN (9-20) mg/dL Glucose (74-99) mg/dL POC Glucose (mg/dL) 101 H 140 H (75-99) mg/dL Calcium (8.4-10.2) mg/dL 09/27/21 09/27/21 09/27/21 Range/Units 06:00 07:13 11:34 RBC (4.30-5.90) m/uL Hgb (13.0-17.5) gm/dL Hct (39.0-53.0) % MCHC (31.0-37.0) g/dL RDW (11.5-15.5) % Neutrophils # (1.3-7.7) k/uL Lymphocytes # (1.0-4.8) k/uL Chloride 91 L (98-107) mmol/L Carbon Dioxide 40 H (22-30) mmol/L BUN 53 H (9-20) mg/dL Glucose 151 H (74-99) mg/dL POC Glucose (mg/dL) 149 H 193 H (75-99) mg/dL Calcium 8.2 L (8.4-10.2) mg/dL Microbiology - Last 24 Hours (Table) 09/26/21 21:58 Sputum Culture - Preliminary Sputum Assessment and Plan (1) Influenza B Current Visit: Yes Status: Acute Code(s): J10.1 - FLU DUE TO OTH IDENT INFLUENZA VIRUS W OTH RESP MANIFEST SNOMED Code(s): 72232712 Plan: 1patient presented to hospital with increasing shortness of breath and cough in this patient has been diagnosed with acute influenza currently with no evidence of any secondary bacterial pneumonia he did have a normal procalcitonin and Covid testing was negative. 2patient has completed a 5 day course of Tamiflu for underlying influenza B 3 patient did have a normal CRP and a pro-calcitonin, no need for systemic antibiotics seem to have clinically responded to the Solu-Medrol to continue per pulmonary Time with Patient: Less than 30
[2021-09-27 21:17] LABS: Glucose,Whole Blood 154 mg/dL (75-99)
[2021-09-27] MEDS: ESCITALOPRAM 10 MG TAB PO SCH (21:29)
[2021-09-27] MEDS: AMITRIPTYLINE HCL 10 MG TAB PO SCH (21:29)
[2021-09-27] MEDS: PRAVASTATIN SODIUM 80 MG TAB PO SCH (21:29)
[2021-09-27] MEDS: TAMSULOSIN 0.4 MG CAP.ER.24H PO SCH (21:30)
[2021-09-28] MEDS: HYDROcodone/APAP 7.5-325MG 1 EACH TAB PO PRN ×2 (03:50→20:37)
[2021-09-28] MEDS: methylPREDNISolone SOD SUCCI 125 MG/2 ML VIAL IV SCH ×3 (05:27→17:50)
[2021-09-28] MEDS: PANTOPRAZOLE 40 MG TABLET PO SCH (05:28)
[2021-09-28] MEDS: ALPRAZolam 0.25 MG TAB PO SCH ×3 (05:28→20:37)
[2021-09-28] MEDS: PREGABALIN 100 MG CAP PO SCH ×3 (05:29→20:37)
[2021-09-28 07:46] LABS: Glucose,Whole Blood 175 mg/dL (75-99)
[2021-09-28] MEDS: CLOPIDOGREL 75 MG TAB PO SCH (08:20)
[2021-09-28] MEDS: SPIRONOLACTONE 25 MG TAB PO SCH (08:20)
[2021-09-28] MEDS: INSULIN ASPART (NovoLOG) 100 UNIT/ML VIAL SQ SCH ×4 (08:20→20:36)
[2021-09-28] MEDS: ISOSORBIDE MONONITRATE ER 30 MG TAB.ER.24H PO SCH (08:20)
[2021-09-28] MEDS: POTASSIUM CHLORIDE ER 20 MEQ TAB.ER PO SCH ×2 (08:20→20:36)
[2021-09-28] MEDS: FUROSEMIDE 10 MG/ML 4 ML VIAL IV SCH ×2 (08:21→20:36)
[2021-09-28] MEDS: METOPROLOL SUCCINATE (ER) 100 MG TAB.ER.24H PO SCH (08:21)
[2021-09-28] MEDS: CHOLECALCIFEROL 25 MCG (1000 IU) TABLET PO SCH (08:21)
[2021-09-28] MEDS: RIVAROXABAN 20 MG TAB PO SCH (08:21)
--- NOTE | 2021-09-28 08:42 | XR ---
EXAMINATION TYPE: XR chest 1V DATE OF EXAM: 09/28/2021 COMPARISON: 09/25/2021 HISTORY: Shortness of breath TECHNIQUE: Single frontal view of the chest is obtained. FINDINGS: Bilateral infiltrate and small effusion. Patchy interstitial changes are seen and there is no pneumothorax. Cardiomegaly with atherosclerotic change aorta. Postoperative changes seen. Suspect underlying COPD and chronic interstitial lung disease. IMPRESSION: Bilateral diffuse interstitial pattern with bilateral infiltrate and pleural effusion perez perimposed on a background COPD. Correlate for CHF otherwise consider diffuse pneumonia.
[2021-09-28] MEDS: IPRATROPIUM-ALBUTEROL 3 ML NEB INHALATION SCH ×4 (08:48→20:06)
[2021-09-28] MEDS: SYMBICORT 160-4.5 MCG INHALER INHALATION SCH ×2 (08:48→20:06)
[2021-09-28 11:21] LABS: African American GFR (CKD) 83 (>60 ml/min/1.73 sqM); Anion Gap 6 mmol/L; Blood Urea Nitrogen 49 mg/dL (9-20); Carbon Dioxide 40 mmol/L (22-30); Chloride 90 mmol/L (98-107); Glucose 206 mg/dL (74-99); Non-African American GFR(CKD) 72 (>60 ml/min/1.73 sqM); Potassium 3.5 mmol/L (3.5-5.1); Sodium 136 mmol/L (137-145)
[2021-09-28 12:35] LABS: Glucose,Whole Blood 158 mg/dL (75-99)
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
--- NOTE | 2021-09-28 16:27 | P.PN ---
Subjective Progress Note Date: 09/28/21 Principal diagnosis: Acute influenza B Patient is a 76 year male with a past medical history significant for COPD presenting to the hospital with increasing shortness of breath or cough patient been diagnosed with acute influenza B. On today's evaluation that is 09/28/2021, the patient remains to be febrile, the patient is breathing comfortable on nasal cannula oxygen, the patient denies having any chest pain, the patient cough is decreased intensity with occasional sputum, the patient denies any abdominal pain and no diarrhea Objective - Vital Signs Vital signs: Vital Signs Temp 97.7 F 09/28/21 12:37 Pulse 107 H 09/28/21 12:37 Resp 19 09/28/21 12:37 BP 114/66 09/28/21 12:37 Pulse Ox 100 09/28/21 12:37 Intake & Output 09/27/21 09/28/21 09/28/21 18:59 06:59 18:59 Intake Total 700 600 Output Total 1000 Balance 700 -400 Weight 115.5 kg 115 kg 114.5 kg Intake: Oral 700 600 Output: Urine 1000 Other: Voiding Method Toilet Urinal Urinal # Voids 3 - Exam GENERAL DESCRIPTION: An elderly male lying in bed in no distress RESPIRATORY SYSTEM: Unlabored breathing , decreased intensity breath sounds HEART: S1 S2 regular rate and rhythm , ABDOMEN: Soft , no tenderness EXTREMITIES: No edema feet - Labs CBC & Chem 7: 09/27/21 06:00 09/28/21 10:32 Labs: Abnormal Lab Results - Last 24 Hours (Table) 09/27/21 09/27/21 09/28/21 Range/Units 16:58 21:15 07:25 Sodium (137-145) mmol/L Chloride (98-107) mmol/L Carbon Dioxide (22-30) mmol/L BUN (9-20) mg/dL Glucose (74-99) mg/dL POC Glucose (mg/dL) 219 H 154 H 175 H (75-99) mg/dL Calcium (8.4-10.2) mg/dL 09/28/21 09/28/21 Range/Units 10:32 12:29 Sodium 136 L (137-145) mmol/L Chloride 90 L (98-107) mmol/L Carbon Dioxide 40 H (22-30) mmol/L BUN 49 H (9-20) mg/dL Glucose 206 H (74-99) mg/dL POC Glucose (mg/dL) 158 H (75-99) mg/dL Calcium 8.0 L (8.4-10.2) mg/dL Microbiology - Last 24 Hours (Table) 09/26/21 21:58 Gram Stain - Preliminary Sputum Sputum Culture - Preliminary Gram Neg Bacilli Assessment and Plan (1) Influenza B Current Visit: Yes Status: Acute Code(s): J10.1 - FLU DUE TO OTH IDENT INFL UENZA VIRUS W OTH RESP MANIFEST SNOMED Code(s): 87250791 Plan: 1patient presented to hospital with increasing shortness of breath and cough in this patient has been diagnosed with acute influenza currently with no evidence of any secondary bacterial pneumonia he did have a normal procalcitonin and Covid testing was negative. 2patient has completed a 5 day course of Tamiflu for underlying influenza B 3 patient did have a normal CRP and a pro-calcitonin, patient seem to have clinically responded to the Solu-Medrol to continue per pulmonary and monitor clinical course closely Time with Patient: Less than 30
[2021-09-28 17:40] LABS: Glucose,Whole Blood 132 mg/dL (75-99)
[2021-09-28 20:10] LABS: Glucose,Whole Blood 165 mg/dL (75-99)
[2021-09-28] MEDS: AMITRIPTYLINE HCL 10 MG TAB PO SCH (20:35)
[2021-09-28] MEDS: ESCITALOPRAM 10 MG TAB PO SCH (20:36)
[2021-09-28] MEDS: CIPROFLOXACIN HCL 500 MG TAB PO SCH (20:36)
[2021-09-28] MEDS: TAMSULOSIN 0.4 MG CAP.ER.24H PO SCH (20:36)
[2021-09-28] MEDS: PRAVASTATIN SODIUM 80 MG TAB PO SCH (20:36)
--- NOTE | 2021-09-28 23:27 | P.PN ---
Subjective Progress Note Date: 09/28/21 This is a pleasant 76-year-old male who was recently admitted with chronic obstructive pulmonary disease acute exacerbation along with fluid overload and also found to be flu B+ and is being closely monitored. Pulmonary, cardiology, infectious disease following an patient is maintained on Tamiflu also breathing inhalational treatments and IV steroids and will continue. She is currently maintained on 4 L of oxygen via nasal cannula. Patient continues with weakness and will have PT/OT evaluate the patient. Recommend follow-up chest x-ray in the a.m. Patient currently denies chest pain or palpitations. Patient is afebrile. Patient tolerating diet with no reports of nausea or vomiting noted. 09/25/2021 Patient is seen in follow-up today continues to be dyspneic with minimal exertion and currently maintained on 2 L of oxygen via nasal cannula. Patient normally wears oxygen in the outpatient setting. Patient continues on IV steroids along with breathing inhalational treatments and Tamiflu and will continue. Blood sugars mildly elevated in the mid 100s currently being managed with sliding scale and recommend continue with Accu-Cheks before meals and at bedtime. Chest x-ray done today shows bilateral diffuse interstitial pattern with bilateral infiltrate and pleural effusion superimposed on a background COPD and a correlate for possible CHF otherwise consider diffuse pneumonia. Patient is continued on by mouth Lasix 40 mg twice daily and will continue. Patient denies worsening shortness of breath, denies chest pain or palpitations. Patient is afebrile. Patient tolerating diet with no reports of nausea or vomiting noted. WBC within normal limits at 9.7. 09/26/2021 Patient seen in follow up and continues with multiple medical consultations following. Patient is continued on lasix and will transition to IV and repeat labs in am as patient continues with some generalized edema. Continues on 4L of 02 and tamiflu with ID following. Sputum cultured and pending. Patient with continued weakness and PT/OT following. Patient denies worsening shortness of breath while at rest, reports to extreme dyspnea with minimal exertion. Patient denies chest pain. Patient is afebrile. 09/27/2021 Patient is seen and evaluated in follow-up today continues to be short of breath although reports to not feeling any ascending and shortness of breath. Patient continued on 4 L via nasal cannula. Patient continues with lower extremity edema and generalized edema noted and tolerating IV Lasix and will continue with follow-up labs and a repeat chest x-ray in the morning. Pulmonary and cardio following an patient to continue with breathing inhalational treatments along with IV steroids. Recommend continue with Accu-Cheks before meals and at bedtime and sliding scale as needed. Patient denies chest pain or palpitations. Patient is afebrile. Preliminary sputum culture showing moderate gram-negative bacilli with a few yeast and few gram-positive cocci and awaiting for cultures to finalize. 09/28/2021 Patient is seen today and sitting up in the chair. Patient continues with shortness of breath and reports to breathing somewhat easier today. Patient continued on IV lasix as well and reports to some minimal improvement in generalized edema of the legs. Encouraged the patient to elevate while at rest and leena wrap the lower extremities from the toes and up to the knees or compression stockings. Patient denies chest pain or palpitations. Patient is afebrile. ID following as well and sputum preliminary growing gram negative bacilli and initiating oral cipro. Awaiting finalized cultures. Chest xray ordered for today. Review of systems: Constitutional: No reports of fatigue, fever, or chills Cardiovascular: No reports of chest pain or palpitations Respiratory: reports of continued shortness of breath and cough , with minimal improvement GI: No reports of nausea, no reports of of vomiting, no reports of diarrhea : No reports of dysuria or retention Neurovascular: reports of generalized weakness All medications have been reviewed Active Medications Hydrocodone Bitart/Acetaminophen (Hydrocodone/Apap 7.5-325mg 1 Each Tab) 1 each PO Q6H PRN PRN Reason: Pain Last Admin: 09/28/21 20:37 Dose: 1 each Documented by: Albuterol/Ipratropium (Ipratropium-Albuterol 3 Ml Neb) 3 ml INHALATION RT-Q4H PRN PRN Reason: Shortness Of Breath Or Wheezing Albuterol/Ipratropium (Ipratropium-Albuterol 3 Ml Neb) 3 ml INHALATION RT-QID [facility] Last Admin: 09/28/21 20:06 Dose: 3 ml Documented by: Alprazolam (Alprazolam 0.25 Mg Tab) 0.25 mg PO Q8H [facility] Last Admin: 09/28/21 20:37 Dose: 0.25 mg Documented by: Amitriptyline HCl (Amitriptyline Hcl 10 Mg Tab) 10 mg PO HS [facility] Last Admin: 09/28/21 20:35 Dose: 10 mg Documented by: Budesonide/Formoterol Fumarate (Symbicort 160-4.5 Mcg Inhaler) 2 puff INHALATION RT-BID [facility] Last Admin: 09/28/21 20:06 Dose: 2 puff Documented by: Cholecalciferol (Cholecalciferol 25 Mcg (1000 Iu) Tablet) 50 mcg PO DAILY [facility] Last Admin: 09/28/21 08:21 Dose: 50 mcg Documented by: Ciprofloxacin (Ciprofloxacin Hcl 500 Mg Tab) 500 mg PO BID [facility]; Protocol Stop: 10/05/21 09:01 Last Admin: 09/28/21 20:36 Dose: 500 mg Documented by: Clopidogrel Bisulfate (Clopidogrel 75 Mg Tab) 75 mg PO DAILY [facility] Last Admin: 09/28/21 08:20 Dose: 75 mg Documented by: Escitalopram Oxalate (Escitalopram 10 Mg Tab) 10 mg PO [facility] Last Admin: 09/28/21 20:36 Dose: 10 mg Documented by: Furosemide (Furosemide 10 Mg/Ml 4 Ml Vial) 40 mg IV Q12HR [facility] Last Admin: 09/28/21 20:36 Dose: 40 mg Documented by: Insulin Aspart (Insulin Aspart (Novolog) 100 Unit/Ml Vial) 0 unit SQ [facility]; Protocol Last Admin: 09/28/21 20:36 Dose: 2 unit Documented by: Isosorbide Mononitrate (Isosorbide Mononitrate Er 30 Mg Tab.Er.24h) 30 mg PO DAILY [facility] Last Admin: 09/28/21 08:20 Dose: 30 mg Documented by: Methylprednisolone Sodium Succinate (Methylprednisolone Sod Succi 125 Mg/2 Ml Vial) 60 mg IV Q6HR [facility] Last Admin: 09/28/21 17:50 Dose: 60 mg Documented by: Metoprolol Succinate (Metoprolol Succinate (Er) 100 Mg Tab.Er.24h) 100 mg PO DAILY [facility] Last Admin: 09/28/21 08:21 Dose: 100 mg Documented by: Pantoprazole Sodium (Pantoprazole 40 Mg Tablet) 40 mg PO DAILY@0600 [facility] Last Admin: 09/28/21 05:28 Dose: 40 mg Documented by: Potassium Chloride (Potassium Chloride Er 20 Meq Tab.Er) 20 meq PO BID [facility] Last Admin: 09/28/21 20:36 Dose: 20 meq Documented by: Pravastatin Sodium (Pravastatin Sodium 80 Mg Tab) 80 mg PO HS [facility] Last Admin: 09/28/21 20:36 Dose: 80 mg Documented by: Pregabalin (Pregabalin 100 Mg Cap) 200 mg PO TID@0600,1400,2200 [facility] Last Admin: 09/28/21 20:37 Dose: 200 mg Documented by: Rivaroxaban (Rivaroxaban 20 Mg Tab) 20 mg PO DAILY [facility]; Protocol Last Admin: 09/28/21 08:21 Dose: 20 mg Documented by: Spironolactone (Spironolactone 25 Mg Tab) 25 mg PO DAILY [facility] Last Admin: 09/28/21 08:20 Dose: 25 mg Documented by: Tamsulosin HCl (Tamsulosin 0.4 Mg Cap.Er.24h) 0.4 mg PO [facility] Last Admin: 09/28/21 20:36 Dose: 0.4 mg Documented by: PHYSICAL EXAMINATION: GENERAL: The patient is alert and oriented x4, Well developed, well nourished. HEENT: Pupils are round and equally reacting to light. EOMI. no scleral icterus. No conjunctival pallor. Normocephalic, atraumatic. No pharyngeal erythema. No thyromegaly. CARDIOVASCULAR: S1 and S2 muffled PULMONARY: diminished breath sounds bilaterally with minimal expiratory wheezing noted. Scattered rhonchi noted ABDOMEN: soft. Nontender on exam. obese. non-distended, normoactive bowel sounds. No palpable organomegaly. MUSCULOSKELETAL: No joint swelling or deformity. EXTREMITIES: No cyanosis, clubbing, or pedal edema. generalized edema noted NEUROLOGICAL: Gross neurological examination did not reveal any focal deficits. SKIN: No rashes. Assessment: Shortness of breath, acute on chronic congestive heart failure diastolic dysfunction, acute exacerbation Acute on chronic hypoxemic respiratory failure secondary to CHF exacerbation Chronic obstructive pulmonary disease, acute exacerbation Influenza B positive Possible pneumonia history of chronic atrial fibrillation History of CVA, TIA Gait dysfunction GI prophylaxis DVT prophylaxis Full code Plan: Recommend to continue with current medications and symptomatic management. Pulmonary, cardiology, infectious disease following and patient has completed Tamiflu. Patient continues on IV steroids, breathing inhalational treatments, and Lasix and will continue. Lasix IV for additional 24 hours as patient co ntinues with generalized edema. Patient reports to slight improvement in generalized edema. Appropriate home medications have been resumed. PT/OT following for continued weakness. Patient reports he will be returning home with his once discharged. Family also refusing rehab at this time. Patient does wear oxygen in the outpatient setting normally 4 L chronically. Sputum culture preliminary showing gram negative bacilli and being started on oral Cipro. Awaiting finalized cultures. Recommend to continue closely monitoring blood sugars as well and continue sliding scale and Accu-Cheks before meals and at bedtime. Repeat labs ordered. Prognosis is guarded. The impression and plan of care has been dictated by Thelma Verma, nurse practitioner as directed. MD Shweta I have performed a history and examination and MDM of this patient, discussed the same with the dictator, and agree with the dictator's assessment and plan as written ,documented as a scribe. Based on total visit time, I have performed more than 50% of the visit. Objective - Vital Signs Vital signs: Vital Signs Temp 97.6 F 09/28/21 03:46 Pulse 72 09/28/21 08:57 Resp 18 09/28/21 03:46 BP 127/74 09/28/21 08:22 Pulse Ox 99 09/28/21 03:46 Intake & Output 09/27/21 09/28/21 09/28/21 18:59 06:59 18:59 Intake Total 700 600 Output Total 1000 Balance 700 -400 Weight 115.5 kg 115 kg 114.5 kg Intake: Oral 700 600 Output: Urine 1000 Other: Voiding Method Toilet Urinal Urinal # Voids 3 - Labs CBC & Chem 7: 09/27/21 06:00 09/28/21 10:32 Labs: Abnormal Lab Results - Last 24 Hours (Table) 09/27/21 09/27/21 09/27/21 Range/Units 11:34 16:58 21:15 POC Glucose (mg/dL) 193 H 219 H 154 H (75-99) mg/dL 09/28/21 Range/Units 07:25 POC Glucose (mg/dL) 175 H (75-99) mg/dL Microbiology - Last 24 Hours (Table) 09/26/21 21:58 Gram Stain - Preliminary Sputum Sputum Culture - Preliminary
[2021-09-29] MEDS: methylPREDNISolone SOD SUCCI 125 MG/2 ML VIAL IV SCH ×4 (00:51→17:34)
[2021-09-29] MEDS: PANTOPRAZOLE 40 MG TABLET PO SCH (06:28)
[2021-09-29] MEDS: ALPRAZolam 0.25 MG TAB PO SCH ×3 (06:28→22:00)
[2021-09-29] MEDS: HYDROcodone/APAP 7.5-325MG 1 EACH TAB PO PRN ×3 (06:28→19:45)
[2021-09-29] MEDS: PREGABALIN 100 MG CAP PO SCH ×3 (06:28→22:01)
[2021-09-29 07:32] LABS: Glucose,Whole Blood 165 mg/dL (75-99)
[2021-09-29] MEDS: SYMBICORT 160-4.5 MCG INHALER INHALATION SCH ×2 (08:04→20:01)
[2021-09-29] MEDS: IPRATROPIUM-ALBUTEROL 3 ML NEB INHALATION SCH ×4 (08:04→20:01)
[2021-09-29] MEDS: POTASSIUM CHLORIDE ER 20 MEQ TAB.ER PO SCH ×2 (08:27→22:00)
[2021-09-29] MEDS: SPIRONOLACTONE 25 MG TAB PO SCH (08:27)
[2021-09-29] MEDS: ISOSORBIDE MONONITRATE ER 30 MG TAB.ER.24H PO SCH (08:27)
[2021-09-29] MEDS: CLOPIDOGREL 75 MG TAB PO SCH (08:28)
[2021-09-29] MEDS: INSULIN ASPART (NovoLOG) 100 UNIT/ML VIAL SQ SCH ×4 (08:28→22:00)
[2021-09-29] MEDS: FUROSEMIDE 10 MG/ML 4 ML VIAL IV SCH ×2 (08:28→22:00)
[2021-09-29] MEDS: CIPROFLOXACIN HCL 500 MG TAB PO SCH ×2 (08:28→22:00)
[2021-09-29] MEDS: CHOLECALCIFEROL 25 MCG (1000 IU) TABLET PO SCH (08:28)
[2021-09-29] MEDS: METOPROLOL SUCCINATE (ER) 100 MG TAB.ER.24H PO SCH (08:29)
[2021-09-29] MEDS: RIVAROXABAN 20 MG TAB PO SCH (08:29)
[2021-09-29 09:18] LABS: African American GFR (CKD) 96.5 (60.0-200.0); BUN/Creat Ratio 47.78 Ratio (12.00-20.00); C Reactive Protein <0.30 mg/dL (0.00-0.80); Calcium 8.9 mg/dL (8.7-10.3); Chloride 93 mmol/L (96-109); Glucose 156 mg/dL (70-110); Non-African American GFR(CKD) 83.3 (60.0-200.0); Potassium 4.3 mmol/L (3.5-5.5); Sodium 141 mmol/L (135-145)
[2021-09-29 09:45] LABS: Basophils # (A) 0.01 X 10*3/uL (0.00-0.10); Basophils % (A) 0.1 %; Eosinophils # (A) 0 X 10*3/uL (0.04-0.35); Eosinophils % (A) 0 %; HCT 32.8 % (39.6-50.0); HGB 9.4 g/dL (13.0-17.0); Immature Grans, Automated 0.6 %; Lymphocytes # (A) 0.23 X 10*3/uL (0.90-5.00); MCH 26.9 pg (27.0-32.0); MCHC 28.7 g/dL (32.0-37.0); MCV 93.7 fL (80.0-97.0); Mean Platelet Volume 13.5 fL (9.5-12.2); Monocytes # (A) 0.41 X 10*3/uL (0.20-1.00); Monocytes % (A) 3.6 %; NRBC Per 100 WBC 0.4 /100 WBCS (0.0-0.0); Neutrophils # (A) 10.54 X 10*3/uL (1.80-7.70); Neutrophils % (A) 93.7 %; Platelet Count 235 X 10*3/uL (140-440); RDW 16.6 % (11.5-14.5); WBC 11.26 X 10*3/uL (4.50-10.00)
[2021-09-29 11:35] LABS: Glucose,Whole Blood 280 mg/dL (75-99)
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
[2021-09-29 17:16] LABS: Glucose,Whole Blood 134 mg/dL (75-99)
[2021-09-29 19:59] LABS: Glucose,Whole Blood 179 mg/dL (75-99)
[2021-09-29] MEDS: AMITRIPTYLINE HCL 10 MG TAB PO SCH (21:59)
[2021-09-29] MEDS: PRAVASTATIN SODIUM 80 MG TAB PO SCH (22:00)
[2021-09-29] MEDS: ESCITALOPRAM 10 MG TAB PO SCH (22:00)
[2021-09-29] MEDS: TAMSULOSIN 0.4 MG CAP.ER.24H PO SCH (22:00)
--- NOTE | 2021-09-30 00:01 | P.PN ---
Subjective Progress Note Date: 09/29/21 Principal diagnosis: Acute influenza B Patient is a 76 year male with a past medical history significant for COPD presenting to the hospital with increasing shortness of breath or cough patient been diagnosed with acute influenza B. On today's evaluation that is 09/29/2021, the patient denies any fever or chills, the patient is breathing comfortable on nasal cannula oxygen, the patient denies having any chest pain, the patient cough has decreased in intensity and not bringing up any sputum, the patient denies abdominal pain and did not have any diarrhea Objective - Vital Signs Vital signs: Vital Signs Temp 97.6 F 09/29/21 11:20 Pulse 88 09/29/21 11:52 Resp 20 09/29/21 11:20 BP 105/58 09/29/21 11:20 Pulse Ox 90 L 09/29/21 11:20 Intake & Output 09/28/21 09/29/21 09/29/21 18:59 06:59 18:59 Intake Total 240 Output Total 550 650 Balance -550 -410 Weight 114.5 kg 115.4 kg Intake: Oral 240 Output: Urine 550 650 Other: Voiding Method Urinal Toilet Urinal - Exam GENERAL DESCRIPTION: An elderly male lying in bed in no distress RESPIRATORY SYSTEM: Unlabored breathing , decreased intensity breath sounds HEART: S1 S2 regular rate and rhythm , ABDOMEN: Soft , no tenderness EXTREMITIES: No edema feet - Labs CBC & Chem 7: 09/29/21 04:14 09/29/21 04:14 Labs: Abnormal Lab Results - Last 24 Hours (Table) 09/28/21 09/28/21 09/29/21 Range/Units 17:38 20:08 04:14 WBC 11.26 H (4.50-10.00) X 10*3/uL RBC 3.50 L (4.40-5.60) X 10*6/uL Hgb 9.4 L (13.0-17.0) g/dL Hct 32.8 L (39.6-50.0) % MCH 26.9 L (27.0-32.0) pg MCHC 28.7 L (32.0-37.0) g/dL RDW 16.6 H (11.5-14.5) % MPV 13.5 H (9.5-12.2) fL Absolute Nucleated RBC 0.05 H (0.00-0.00) X 10*3/uL Immature Gran # 0.07 H (0.00-0.04) X 10*3/uL Neutrophils # 10.54 H (1.80-7.70) X 10*3/uL Lymphocytes # 0.23 L (0.90-5.00) X 10*3/uL Eosinophils # 0 L (0.04-0.35) X 10*3/uL NRBC/100 WBC Diff 0.4 H (0.0-0.0) /100 WBCS Chloride (96-109) mmol/L Carbon Dioxide (20.0-27.5) mmol/L BUN (9.0-27.0) mg/dL BUN/Creatinine Ratio (12.00-20.00) Ratio Glucose (70-110) mg/dL POC Glucose (mg/dL) 132 H 165 H (75-99) mg/dL 09/29/21 09/29/21 09/29/21 Range/Units 04:14 07:30 11:33 WBC (4.50-10.00) X 10*3/uL RBC (4.40-5.60) X 10*6/uL Hgb (13.0-17.0) g/dL Hct (39.6-50.0) % MCH (27.0-32.0) pg MCHC (32.0-37.0) g/dL RDW (11.5-14.5) % MPV (9.5-12.2) fL Absolute Nucleated RBC (0.00-0.00) X 10*3/uL Immature Gran # (0.00-0.04) X 10*3/uL Neutrophils # (1.80-7.70) X 10*3/uL Lymphocytes # (0.90-5.00) X 10*3/uL Eosinophils # (0.04-0.35) X 10*3/uL NRBC/100 WBC Diff (0.0-0.0) /100 WBCS Chloride 93 L (96-109) mmol/L Carbon Dioxide 36.0 H (20.0-27.5) mmol/L BUN 43.0 H (9.0-27.0) mg/dL BUN/Creatinine Ratio 47.78 H (12.00-20.00) Ratio Glucose 156 H (70-110) mg/dL POC Glucose (mg/dL) 165 H 280 H (75-99) mg/dL Microbiology - Last 24 Hours (Table) 09/26/21 21:58 Gram Stain - Final Sputum Sputum Culture - Final Klebsiella pneumoniae Assessment and Plan (1) Influenza B Current Visit: Yes Status: Acute Code(s): J10.1 - FLU DUE TO OTH IDENT INFLUENZA VIRUS W OTH RESP MANIFEST SNOMED Code(s): 19572177 Plan: 1patient presented to hospital with increasing shortness of breath and cough in this patient has been diagnosed with acute influenza currently with no evidence of any secondary bacterial pneumonia he did have a normal procalcitonin and Covid testing was negative. 2patient has completed a 5 day course of Tamiflu for underlying influenza B 3 patient sputum did grow Klebsiella however the patient did have a normal CRP and a pro-calcitonin more likely colonization and no need for antibiotic therapy Time with Patient: Less than 30
[2021-09-30] MEDS: ALPRAZolam 0.25 MG TAB PO SCH ×3 (04:52→20:47)
[2021-09-30] MEDS: methylPREDNISolone SOD SUCCI 125 MG/2 ML VIAL IV SCH ×4 (04:52→17:32)
[2021-09-30] MEDS: PANTOPRAZOLE 40 MG TABLET PO SCH (04:53)
[2021-09-30] MEDS: HYDROcodone/APAP 7.5-325MG 1 EACH TAB PO PRN ×3 (04:53→20:47)
[2021-09-30] MEDS: PREGABALIN 100 MG CAP PO SCH ×3 (04:53→20:47)
[2021-09-30 07:24] LABS: Glucose,Whole Blood 165 mg/dL (75-99)
[2021-09-30] MEDS: IPRATROPIUM-ALBUTEROL 3 ML NEB INHALATION SCH ×4 (07:44→19:54)
[2021-09-30] MEDS: SYMBICORT 160-4.5 MCG INHALER INHALATION SCH ×2 (07:44→19:55)
[2021-09-30] MEDS: METOPROLOL SUCCINATE (ER) 100 MG TAB.ER.24H PO SCH (08:34)
[2021-09-30] MEDS: POTASSIUM CHLORIDE ER 20 MEQ TAB.ER PO SCH ×2 (08:34→20:47)
[2021-09-30] MEDS: CIPROFLOXACIN HCL 500 MG TAB PO SCH ×2 (08:34→20:48)
[2021-09-30] MEDS: CLOPIDOGREL 75 MG TAB PO SCH (08:35)
[2021-09-30] MEDS: INSULIN ASPART (NovoLOG) 100 UNIT/ML VIAL SQ SCH ×4 (08:35→20:46)
[2021-09-30] MEDS: FUROSEMIDE 10 MG/ML 4 ML VIAL IV SCH ×2 (08:35→20:46)
[2021-09-30] MEDS: ISOSORBIDE MONONITRATE ER 30 MG TAB.ER.24H PO SCH (08:35)
[2021-09-30] MEDS: CHOLECALCIFEROL 25 MCG (1000 IU) TABLET PO SCH (08:35)
[2021-09-30] MEDS: RIVAROXABAN 20 MG TAB PO SCH (08:35)
[2021-09-30] MEDS: SPIRONOLACTONE 25 MG TAB PO SCH (08:35)
[2021-09-30 11:51] LABS: Glucose,Whole Blood 203 mg/dL (75-99)
[2021-09-30 12:44] LABS: African American GFR (CKD) 105.1 (60.0-200.0); Anion Gap 9.8 mmol/L (10.00-18.00); BUN/Creat Ratio 49.79 Ratio (12.00-20.00); Blood Urea Nitrogen 36.4 mg/dL (9.0-27.0); Calcium 8.7 mg/dL (8.7-10.3); Carbon Dioxide 36.9 mmol/L (20.0-27.5); Non-African American GFR(CKD) 90.7 (60.0-200.0); Potassium 4.1 mmol/L (3.5-5.5)
[2021-09-30 12:58] LABS: Basophils # (A) 0.02 X 10*3/uL (0.00-0.10); Basophils % (A) 0.1 %; Eosinophils # (A) 0 X 10*3/uL (0.04-0.35); Eosinophils % (A) 0 %; HCT 30.2 % (39.6-50.0); HGB 8.8 g/dL (13.0-17.0); Immature Grans, Automated 0.6 %; Lymphocytes # (A) 0.26 X 10*3/uL (0.90-5.00); Lymphocytes % (A) 1.3 %; MCH 27.1 pg (27.0-32.0); MCHC 29.1 g/dL (32.0-37.0); MCV 92.9 fL (80.0-97.0); Mean Platelet Volume 13.4 fL (9.5-12.2); Monocytes # (A) 0.77 X 10*3/uL (0.20-1.00); Monocytes % (A) 3.9 %; NRBC Per 100 WBC 0.1 /100 WBCS (0.0-0.0); Neutrophils # (A) 18.59 X 10*3/uL (1.80-7.70); Neutrophils % (A) 94.1 %; Platelet Count 201 X 10*3/uL (140-440); RBC 3.25 X 10*6/uL (4.40-5.60); RDW 16.5 % (11.5-14.5); WBC 19.76 X 10*3/uL (4.50-10.00)
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
[2021-09-30 17:04] LABS: Glucose,Whole Blood 142 mg/dL (75-99)
[2021-09-30 20:39] LABS: Glucose,Whole Blood 199 mg/dL (75-99)
[2021-09-30] MEDS: ESCITALOPRAM 10 MG TAB PO SCH (20:46)
[2021-09-30] MEDS: AMITRIPTYLINE HCL 10 MG TAB PO SCH (20:46)
[2021-09-30] MEDS: PRAVASTATIN SODIUM 80 MG TAB PO SCH (20:47)
[2021-09-30] MEDS: TAMSULOSIN 0.4 MG CAP.ER.24H PO SCH (20:47)
--- NOTE | 2021-09-30 23:11 | P.PN ---
Subjective Progress Note Date: 09/29/21 This is a pleasant 76-year-old male who was recently admitted with chronic obstructive pulmonary disease acute exacerbation along with fluid overload and also found to be flu B+ and is being closely monitored. Pulmonary, cardiology, infectious disease following an patient is maintained on Tamiflu also breathing inhalational treatments and IV steroids and will continue. She is currently maintained on 4 L of oxygen via nasal cannula. Patient continues with weakness and will have PT/OT evaluate the patient. Recommend follow-up chest x-ray in the a.m. Patient currently denies chest pain or palpitations. Patient is afebrile. Patient tolerating diet with no reports of nausea or vomiting noted. 09/25/2021 Patient is seen in follow-up today continues to be dyspneic with minimal exertion and currently maintained on 2 L of oxygen via nasal cannula. Patient normally wears oxygen in the outpatient setting. Patient continues on IV steroids along with breathing inhalational treatments and Tamiflu and will continue. Blood sugars mildly elevated in the mid 100s currently being managed with sliding scale and recommend continue with Accu-Cheks before meals and at bedtime. Chest x-ray done today shows bilateral diffuse interstitial pattern with bilateral infiltrate and pleural effusion superimposed on a background COPD and a correlate for possible CHF otherwise consider diffuse pneumonia. Patient is continued on by mouth Lasix 40 mg twice daily and will continue. Patient denies worsening shortness of breath, denies chest pain or palpitations. Patient is afebrile. Patient tolerating diet with no reports of nausea or vomiting noted. WBC within normal limits at 9.7. 09/26/2021 Patient seen in follow up and continues with multiple medical consultations following. Patient is continued on lasix and will transition to IV and repeat labs in am as patient continues with some generalized edema. Continues on 4L of 02 and tamiflu with ID following. Sputum cultured and pending. Patient with continued weakness and PT/OT following. Patient denies worsening shortness of breath while at rest, reports to extreme dyspnea with minimal exertion. Patient denies chest pain. Patient is afebrile. 09/27/2021 Patient is seen and evaluated in follow-up today continues to be short of breath although reports to not feeling any ascending and shortness of breath. Patient continued on 4 L via nasal cannula. Patient continues with lower extremity edema and generalized edema noted and tolerating IV Lasix and will continue with follow-up labs and a repeat chest x-ray in the morning. Pulmonary and cardio following an patient to continue with breathing inhalational treatments along with IV steroids. Recommend continue with Accu-Cheks before meals and at bedtime and sliding scale as needed. Patient denies chest pain or palpitations. Patient is afebrile. Preliminary sputum culture showing moderate gram-negative bacilli with a few yeast and few gram-positive cocci and awaiting for cultures to finalize. 09/28/2021 Patient is seen today and sitting up in the chair. Patient continues with shortness of breath and reports to breathing somewhat easier today. Patient continued on IV lasix as well and reports to some minimal improvement in generalized edema of the legs. Encouraged the patient to elevate while at rest and leena wrap the lower extremities from the toes and up to the knees or compression stockings. Patient denies chest pain or palpitations. Patient is afebrile. ID following as well and sputum preliminary growing gram negative bacilli and initiating oral cipro. Awaiting finalized cultures. Chest xray ordered for today. 09/29/2021 Patient is currently resting in the bed. Admit to hospital with influenza B, acute COPD exacerbation and sputum cultures positive for Klebsiella pneumonia. Patient is awake alert and oriented x3. Currently being continued on cannula IV Solu-Medrol and also Lasix 40 mg IV every 12. Patient is being continued on duo nebs and oxygen supplementation. ID and pulmonary is on board. Patient has been afebrile. No nausea vomiting or diarrhea. Denies any dysuria or hematuria. Laboratory data showed WBC 11.2 hemoglobin 9.4 and platelets 235 Sodium 141, potassium 4.3 chloride 93 bicarb is 36 BUN 43 and creatinine 0.9 blood sugar is 156 CRP less than 0.3 and procalcitonin level is 0.04 Review of systems: Constitutional: No reports of fatigue, fever, or chills Cardiovascular: No reports of chest pain or palpitations Respiratory: reports of continued shortness of breath and cough , with minimal improvement GI: No reports of nausea, no reports of of vomiting, no reports of diarrhea : No reports of dysuria or retention Neurovascular: reports of generalized weakness All medications have been reviewed Objective - Vital Signs Vital signs: Vital Signs Temp 97.9 F 09/29/21 19:49 Pulse 80 09/29/21 20:11 Resp 20 09/29/21 19:49 BP 112/66 09/29/21 19:49 Pulse Ox 93 L 09/29/21 19:49 Intake & Output 09/29/21 09/29/21 09/30/21 06:59 18:59 06:59 Intake Total 240 Output Total 650 Balance -410 Weight 115.4 kg Intake: Oral 240 Output: Urine 650 Other: Voiding Method Toilet Toilet Urinal Urinal # Voids 3 - Exam PHYSICAL EXAMINATION: GENERAL: The patient is alert and oriented x4, Well developed, well nourished. HEENT: Pupils are round and equally reacting to light. EOMI. no scleral icterus. No conjunctival pallor. Normocephalic, atraumatic. No pharyngeal erythema. No thyromegaly. CARDIOVASCULAR: S1 and S2 muffled PULMONARY: diminished breath sounds bilaterally with minimal expiratory wheezing noted. Scattered rhonchi noted ABDOMEN: soft. Nontender on exam. obese. non-distended, normoactive bowel sounds. No palpable organomegaly. MUSCULOSKELETAL: No joint swelling or deformity. EXTREMITIES: No cyanosis, clubbing, or pedal edema. generalized edema noted NEUROLOGICAL: Gross neurological examination did not reveal any focal deficits. SKIN: No rashes. - Labs CBC & Chem 7: 09/30/21 06:41 09/30/21 06:41 Labs: Abnormal Lab Results - Last 24 Hours (Table) 09/29/21 09/29/21 09/29/21 Range/Units 04:14 04:14 07:30 WBC 11.26 H (4.50-10.00) X 10*3/uL RBC 3.50 L (4.40-5.60) X 10*6/uL Hgb 9.4 L (13.0-17.0) g/dL Hct 32.8 L (39.6-50.0) % MCH 26.9 L (27.0-32.0) pg MCHC 28.7 L (32.0-37.0) g/dL RDW 16.6 H (11.5-14.5) % MPV 13.5 H (9.5-12.2) fL Absolute Nucleated RBC 0.05 H (0.00-0.00) X 10*3/uL Immature Gran # 0.07 H (0.00-0.04) X 10*3/uL Neutrophils # 10.54 H (1.80-7.70) X 10*3/uL Lymphocytes # 0.23 L (0.90-5.00) X 10*3/uL Eosinophils # 0 L (0.04-0.35) X 10*3/uL NRBC/100 WBC Diff 0.4 H (0.0-0.0) /100 WBCS Chloride 93 L (96-109) mmol/L Carbon Dioxide 36.0 H (20.0-27.5) mmol/L BUN 43.0 H (9.0-27.0) mg/dL BUN/Creatinine Ratio 47.78 H (12.00-20.00) Ratio Glucose 156 H (70-110) mg/dL POC Glucose (mg/dL) 165 H (75-99) mg/dL 09/29/21 09/29/21 09/29/21 Range/Units 11:33 17:12 19:48 WBC (4.50-10.00) X 10*3/uL RBC (4.40-5.60) X 10*6/uL Hgb (13.0-17.0) g/dL Hct (39.6-50.0) % MCH (27.0-32.0) pg MCHC (32.0-37.0) g/dL RDW (11.5-14.5) % MPV (9.5-12.2) fL Absolute Nucleated RBC (0.00-0.00) X 10*3/uL Immature Gran # (0.00-0.04) X 10*3/uL Neutrophils # (1.80-7.70) X 10*3/uL Lymphocytes # (0.90-5.00) X 10*3/uL Eosinophils # (0.04-0.35) X 10*3/uL NRBC/100 WBC Diff (0.0-0.0) /100 WBCS Chloride (96-109) mmol/L Carbon Dioxide (20.0-27.5) mmol/L BUN (9.0-27.0) mg/dL BUN/Creatinine Ratio (12.00-20.00) Ratio Glucose (70-110) mg/dL POC Glucose (mg/dL) 280 H 134 H 179 H (75-99) mg/dL Microbiology - Last 24 Hours (Table) 09/26/21 21:58 Gram Stain - Final Sputum Sputum Culture - Final Klebsiella pneumoniae Assessment and Plan Assessment: Assessment: Shortness of breath, acute on chronic congestive heart failure diastolic dysfunction, acute exacerbation Acute on chronic hypoxemic respiratory failure secondary to CHF exacerbation Chronic obstructive pulmonary disease, acute exacerbation Influenza B positive Acute tracheobronchitis sputum cultures positive for Klebsiella pneumonia. Possible pneumonia history of chronic atrial fibrillation History of CVA, TIA Gait dysfunction GI prophylaxis DVT prophylaxis Full code Plan: Recommend to continue with current medications and symptomatic management. Pulmonary, cardiology, infectious disease following and patient has completed Tamiflu. Patient continues on IV steroids, breathing inhalational treatments, and Lasix and will continue. Lasix IV for additional 24 hours as patient continues with generalized edema. Patient reports to slight improvement in generalized edema. Appropriate home medications have been resumed. PT/OT following for continued weakness. Patient reports he will be returning home wi th his once discharged. Family also refusing rehab at this time. Patient does wear oxygen in the outpatient setting normally 4 L chronically. Sputum culture preliminary showing gram negative bacilli / Klebsiella and was started on oral Cipro. Recommend to continue closely monitoring blood sugars as well and continue sliding scale and Accu-Cheks before meals and at bedtime. Repeat labs ordered. Prognosis is guarded. Time with Patient: Greater than 30
--- NOTE | 2021-09-30 23:13 | P.PN ---
Subjective Progress Note Date: 09/30/21 This is a pleasant 76-year-old male who was recently admitted with chronic obstructive pulmonary disease acute exacerbation along with fluid overload and also found to be flu B+ and is being closely monitored. Pulmonary, cardiology, infectious disease following an patient is maintained on Tamiflu also breathing inhalational treatments and IV steroids and will continue. She is currently maintained on 4 L of oxygen via nasal cannula. Patient continues with weakness and will have PT/OT evaluate the patient. Recommend follow-up chest x-ray in the a.m. Patient currently denies chest pain or palpitations. Patient is afebrile. Patient tolerating diet with no reports of nausea or vomiting noted. 09/25/2021 Patient is seen in follow-up today continues to be dyspneic with minimal exertion and currently maintained on 2 L of oxygen via nasal cannula. Patient normally wears oxygen in the outpatient setting. Patient continues on IV steroids along with breathing inhalational treatments and Tamiflu and will continue. Blood sugars mildly elevated in the mid 100s currently being managed with sliding scale and recommend continue with Accu-Cheks before meals and at bedtime. Chest x-ray done today shows bilateral diffuse interstitial pattern with bilateral infiltrate and pleural effusion superimposed on a background COPD and a correlate for possible CHF otherwise consider diffuse pneumonia. Patient is continued on by mouth Lasix 40 mg twice daily and will continue. Patient denies worsening shortness of breath, denies chest pain or palpitations. Patient is afebrile. Patient tolerating diet with no reports of nausea or vomiting noted. WBC within normal limits at 9.7. 09/26/2021 Patient seen in follow up and continues with multiple medical consultations following. Patient is continued on lasix and will transition to IV and repeat labs in am as patient continues with some generalized edema. Continues on 4L of 02 and tamiflu with ID following. Sputum cultured and pending. Patient with continued weakness and PT/OT following. Patient denies worsening shortness of breath while at rest, reports to extreme dyspnea with minimal exertion. Patient denies chest pain. Patient is afebrile. 09/27/2021 Patient is seen and evaluated in follow-up today continues to be short of breath although reports to not feeling any ascending and shortness of breath. Patient continued on 4 L via nasal cannula. Patient continues with lower extremity edema and generalized edema noted and tolerating IV Lasix and will continue with follow-up labs and a repeat chest x-ray in the morning. Pulmonary and cardio following an patient to continue with breathing inhalational treatments along with IV steroids. Recommend continue with Accu-Cheks before meals and at bedtime and sliding scale as needed. Patient denies chest pain or palpitations. Patient is afebrile. Preliminary sputum culture showing moderate gram-negative bacilli with a few yeast and few gram-positive cocci and awaiting for cultures to finalize. 09/28/2021 Patient is seen today and sitting up in the chair. Patient continues with shortness of breath and reports to breathing somewhat easier today. Patient continued on IV lasix as well and reports to some minimal improvement in generalized edema of the legs. Encouraged the patient to elevate while at rest and leena wrap the lower extremities from the toes and up to the knees or compression stockings. Patient denies chest pain or palpitations. Patient is afebrile. ID following as well and sputum preliminary growing gram negative bacilli and initiating oral cipro. Awaiting finalized cultures. Chest xray ordered for today. 09/29/2021 Patient is currently resting in the bed. Admit to hospital with influenza B, acute COPD exacerbation and sputum cultures positive for Klebsiella pneumonia. Patient is awake alert and oriented x3. Currently being continued on cannula IV Solu-Medrol and also Lasix 40 mg IV every 12. Patient is being continued on duo nebs and oxygen supplementation. ID and pulmonary is on board. Patient has been afebrile. No nausea vomiting or diarrhea. Denies any dysuria or hematuria. Laboratory data showed WBC 11.2 hemoglobin 9.4 and platelets 235 Sodium 141, potassium 4.3 chloride 93 bicarb is 36 BUN 43 and creatinine 0.9 blood sugar is 156 CRP less than 0.3 and procalcitonin level is 0.04 09/30/2021 Patient is currently sitting in the chair. Awake alert and oriented x3. Seems to be lethargic. No complaints of chest pain or worsening shortness breath. Breathing status is getting better. Patient still having mild expiratory wheezing. Continue duo nebs, IV Solu-Medrol and also on IV Lasix. Patient is on ciprofloxacin for Klebsiella pneumonia in the sputum cultures. Completed Tamiflu for influenza B. Laboratory data showed WBC went up to 19.76 hemoglobin 8.8 and platelets 201 BUN 36.4 and creatinine 0.7 and bicarb level is 36.9 today. Pulmonary is on board. Review of systems: Constitutional: No reports of fatigue, fever, or chills Cardiovascular: No reports of chest pain or palpitations Respiratory: reports of continued shortness of breath and cough , with minimal improvement GI: No reports of nausea, no reports of of vomiting, no reports of diarrhea : No reports of dysuria or retention Neurovascular: reports of generalized weakness All medications have been reviewed Objective - Vital Signs Vital signs: Vital Signs Temp 97.7 F 09/30/21 11:18 Pulse 76 09/30/21 16:25 Resp 18 09/30/21 11:18 BP 104/65 09/30/21 11:18 Pulse Ox 99 09/30/21 11:18 Intake & Output 09/29/21 09/30/21 09/30/21 18:59 06:59 18:59 Output Total 1000 Balance -1000 Weight 114.7 kg Output: Urine 1000 Other: Voiding Method Toilet Toilet Toilet Urinal Urinal Urinal # Voids 3 3 - Exam PHYSICAL EXAMINATION: GENERAL: The patient is alert and oriented x4, Well developed, well nourished. HEENT: Pupils are round and equally reacting to light. EOMI. no scleral icterus. No conjunctival pallor. Normocephalic, atraumatic. No pharyngeal erythema. No thyromegaly. CARDIOVASCULAR: S1 and S2 muffled PULMONARY: diminished breath sounds bilaterally with minimal expiratory wheezing noted. Scattered rhonchi noted ABDOMEN: soft. Nontender on exam. obese. non-distended, normoactive bowel sounds. No palpable organomegaly. MUSCULOSKELETAL: No joint swelling or deformity. EXTREMITIES: No cyanosis, clubbing, or pedal edema. generalized edema noted NEUROLOGICAL: Gross neurological examination did not reveal any focal deficits. SKIN: No rashes. - Labs CBC & Chem 7: 09/30/21 06:41 09/30/21 06:41 Labs: Abnormal Lab Results - Last 24 Hours (Table) 09/29/21 09/30/21 09/30/21 Range/Units 19:48 06:41 06:41 WBC 19.76 H (4.50-10.00) X 10*3/uL RBC 3.25 L (4.40-5.60) X 10*6/uL Hgb 8.8 L (13.0-17.0) g/dL Hct 30.2 L (39.6-50.0) % MCHC 29.1 L (32.0-37.0) g/dL RDW 16.5 H (11.5-14.5) % MPV 13.4 H (9.5-12.2) fL Absolute Nucleated RBC 0.02 H (0.00-0.00) X 10*3/uL Immature Gran # 0.12 H (0.00-0.04) X 10*3/uL Neutrophils # 18.59 H (1.80-7.70) X 10*3/uL Lymphocytes # 0.26 L (0.90-5.00) X 10*3/uL Eosinophils # 0 L (0.04-0.35) X 10*3/uL NRBC/100 WBC Diff 0.1 H (0.0-0.0) /100 WBCS Chloride 92 L (96-109) mmol/L Carbon Dioxide 36.9 H (20.0-27.5) mmol/L Anion Gap 9.80 L (10.00-18.00) mmol/L BUN 36.4 H (9.0-27.0) mg/dL BUN/Creatinine Ratio 49.79 H (12.00-20.00) Ratio Glucose 159 H (70-110) mg/dL POC Glucose (mg/dL) 179 H (75-99) mg/dL 09/30/21 09/30/21 09/30/21 Range/Units 07:11 11:21 17:02 WBC (4.50-10.00) X 10*3/uL RBC (4.40-5.60) X 10*6/uL Hgb (13.0-17.0) g/dL Hct (39.6-50.0) % MCHC (32.0-37.0) g/dL RDW (11.5-14.5) % MPV (9.5-12.2) fL Absolute Nucleated RBC (0.00-0.00) X 10*3/uL Immature Gran # (0.00-0.04) X 10*3/uL Neutrophils # (1.80-7.70) X 10*3/uL Lymphocytes # (0.90-5.00) X 10*3/uL Eosinophils # (0.04-0.35) X 10*3/uL NRBC/100 WBC Diff (0.0-0.0) /100 WBCS Chloride (96-109) mmol/L Carbon Dioxide (20.0-27.5) mmol/L Anion Gap (10.00-18.00) mmol/L BUN (9.0-27.0) mg/dL BUN/Creatinine Ratio (12.00-20.00) Ratio Glucose (70-110) mg/dL POC Glucose (mg/dL) 165 H 203 H 142 H (75-99) mg/dL Assessment and Plan Assessment: Assessment: Shortness of breath, acute on chronic congestive heart failure diastolic dysfunction, acute exacerbation Acute on chronic hypoxemic respiratory failure secondary to CHF exacerbation Chronic obstructive pulmonary disease, acute exacerbation Chronic hypoxic respiratory failure on oxygen at 4 L via nasal cannula at home Influenza B positive Acute tracheobronchitis sputum cultures positive for Klebsiella pneumonia. Possible pneumonia history of chronic atrial fibrillation History of CVA, TIA Gait dysfunction GI prophylaxis DVT prophylaxis Full code Plan: Recommend to continue with current medications and symptomatic management. Pulmonary, cardiology, infectious disease following and patient has completed Tamiflu. Patient continues on IV steroids, breathing inhalational treatments, and Lasix and will continue. Lasix IV for additional 24 hours as patient continues with generalized edema. Patient reports to slight improvement in generalized edema. Appropriate home medications have been resumed. PT/OT following for continued weakness. Patient reports he will be returning home with his once discharged. Family also refusing rehab at this time. Patient does wear oxygen in the outpatient setting normally 4 L chronically. Sputum culture preliminary showing gram negative bacilli / Klebsiella and was started on oral Cipro. Recommend to continue closely monitoring blood sugars as well and continue sliding scale and Accu-Cheks before meals and at bedtime. Repeat labs ordered. P rognosis is guarded. Time with Patient: Greater than 30
--- NOTE | 2021-09-30 23:47 | P.PN ---
Subjective Progress Note Date: 09/30/21 Principal diagnosis: Acute influenza B Patient is a 76 year male with a past medical history significant for COPD presenting to the hospital with increasing shortness of breath or cough patient been diagnosed with acute influenza B. On today's evaluation that is 09/30/2021, the patient remains to be afebrile, the patient is breathing comfortable on nasal cannula oxygen, the patient denies having any chest pain, the patient cough has decreased in intensity and mostly dry in nature, the patient denies abdominal pain and did not have any diarrhea Objective - Vital Signs Vital signs: Vital Signs Temp 97.7 F 09/30/21 11:18 Pulse 80 09/30/21 11:33 Resp 18 09/30/21 11:18 BP 104/65 09/30/21 11:18 Pulse Ox 99 09/30/21 11:18 Intake & Output 09/29/21 09/30/21 09/30/21 18:59 06:59 18:59 Output Total 1000 Balance -1000 Weight 114.7 kg Output: Urine 1000 Other: Voiding Method Toilet Toilet Urinal Urinal # Voids 3 - Exam GENERAL DESCRIPTION: An elderly male lying in bed in no distress RESPIRATORY SYSTEM: Unlabored breathing , decreased intensity breath sounds HEART: S1 S2 regular rate and rhythm , ABDOMEN: Soft , no tenderness EXTREMITIES: No edema feet - Labs CBC & Chem 7: 09/30/21 06:41 09/30/21 06:41 Labs: Abnormal Lab Results - Last 24 Hours (Table) 09/29/21 09/29/21 09/30/21 Range/Units 17:12 19:48 06:41 Chloride 92 L (96-109) mmol/L Carbon Dioxide 36.9 H (20.0-27.5) mmol/L Anion Gap 9.80 L (10.00-18.00) mmol/L BUN 36.4 H (9.0-27.0) mg/dL BUN/Creatinine Ratio 49.79 H (12.00-20.00) Ratio Glucose 159 H (70-110) mg/dL POC Glucose (mg/dL) 134 H 179 H (75-99) mg/dL 09/30/21 09/30/21 Range/Units 07:11 11:21 Chloride (96-109) mmol/L Carbon Dioxide (20.0-27.5) mmol/L Anion Gap (10.00-18.00) mmol/L BUN (9.0-27.0) mg/dL BUN/Creatinine Ratio (12.00-20.00) Ratio Glucose (70-110) mg/dL POC Glucose (mg/dL) 165 H 203 H (75-99) mg/dL Microbiology - Last 24 Hours (Table) 09/26/21 21:58 Gram Stain - Final Sputum Sputum Culture - Final Klebsiella pneumoniae Assessment and Plan (1) Influenza B Current Visit: Yes Status: Acute Code(s): J10.1 - FLU DUE TO OTH IDENT INFLUENZA VIRUS W OTH RESP MANIFEST SNOMED Code(s): 91239404 Plan: 1patient presented to hospital with increasing shortness of breath and cough in this patient has been diagnosed with acute influenza currently with no evidence of any secondary bacterial pneumonia he did have a normal procalcitonin and Covid testing was negative. 2patient has completed a 5 day course of Tamiflu for underlying influenza B 3 patient sputum did grow Klebsiella however the patient did have a normal CRP and a pro-calcitonin more likely colonization and no need for antibiotic therapy 4-leukocytosis more likely steroid effect Time with Patient: Less than 30
[2021-10-01] MEDS: methylPREDNISolone SOD SUCCI 125 MG/2 ML VIAL IV SCH ×2 (01:11→06:06)
[2021-10-01] MEDS: ALPRAZolam 0.25 MG TAB PO SCH (06:06)
[2021-10-01] MEDS: PREGABALIN 100 MG CAP PO SCH (06:07)
[2021-10-01] MEDS: HYDROcodone/APAP 7.5-325MG 1 EACH TAB PO PRN ×2 (06:07→12:45)
[2021-10-01] MEDS: PANTOPRAZOLE 40 MG TABLET PO SCH (06:07)
[2021-10-01 07:28] LABS: Glucose,Whole Blood 179 mg/dL (75-99)
[2021-10-01] MEDS: FUROSEMIDE 10 MG/ML 4 ML VIAL IV SCH (08:02)
[2021-10-01] MEDS: RIVAROXABAN 20 MG TAB PO SCH (08:03)
[2021-10-01] MEDS: INSULIN ASPART (NovoLOG) 100 UNIT/ML VIAL SQ SCH ×2 (08:03→12:45)
[2021-10-01] MEDS: ISOSORBIDE MONONITRATE ER 30 MG TAB.ER.24H PO SCH (08:03)
[2021-10-01] MEDS: CHOLECALCIFEROL 25 MCG (1000 IU) TABLET PO SCH (08:03)
[2021-10-01] MEDS: CLOPIDOGREL 75 MG TAB PO SCH (08:03)
[2021-10-01] MEDS: SPIRONOLACTONE 25 MG TAB PO SCH (08:03)
[2021-10-01] MEDS: POTASSIUM CHLORIDE ER 20 MEQ TAB.ER PO SCH (08:03)
[2021-10-01] MEDS: METOPROLOL SUCCINATE (ER) 100 MG TAB.ER.24H PO SCH (08:03)
[2021-10-01] MEDS: CIPROFLOXACIN HCL 500 MG TAB PO SCH (08:04)
[2021-10-01] MEDS: SYMBICORT 160-4.5 MCG INHALER INHALATION SCH (08:17)
[2021-10-01] MEDS: IPRATROPIUM-ALBUTEROL 3 ML NEB INHALATION SCH ×2 (08:18→11:55)
--- NOTE | 2021-10-01 08:54 | XR ---
EXAMINATION TYPE: XR chest 1V portable DATE OF EXAM: 10/01/2021 Comparison: 09/28/2021 Clinical History: 76-year-old male shortness of breath Findings: The heart is mildly enlarged. Underlying emphysematous change with diffuse interstitial and patchy op acities bilaterally particularly at the lung bases. Small bilateral pleural effusions also noted. Med juan sternotomy wires. Impression: Correlate for CHF with interstitial and patchy pulmonary edema, similar to slightly increased from pr ior. Small bilateral pleural effusions also noted. Background COPD.
[2021-10-01 09:21] LABS: Anion Gap 6.7 mmol/L (10.00-18.00); BUN/Creat Ratio 50.29 Ratio (12.00-20.00); Blood Urea Nitrogen 35.2 mg/dL (9.0-27.0); Carbon Dioxide 38.3 mmol/L (20.0-27.5); Non-African American GFR(CKD) 92.3 (60.0-200.0); Potassium 4.4 mmol/L (3.5-5.5)
[2021-10-01 09:36] LABS: Basophils # (A) 0.02 X 10*3/uL (0.00-0.10); Basophils % (A) 0.1 %; Eosinophils # (A) 0 X 10*3/uL (0.04-0.35); Eosinophils % (A) 0 %; HCT 31.3 % (39.6-50.0); HGB 9.2 g/dL (13.0-17.0); Immature Grans, Automated 1.7 %; Lymphocytes # (A) 0.34 X 10*3/uL (0.90-5.00); Lymphocytes % (A) 2.3 %; MCH 27.4 pg (27.0-32.0); MCHC 29.4 g/dL (32.0-37.0); MCV 93.2 fL (80.0-97.0); Mean Platelet Volume 13.6 fL (9.5-12.2); Monocytes # (A) 0.53 X 10*3/uL (0.20-1.00); Monocytes % (A) 3.5 %; NRBC Per 100 WBC 0 /100 WBCS (0.0-0.0); Neutrophils # (A) 13.86 X 10*3/uL (1.80-7.70); Neutrophils % (A) 92.4 %; Platelet Count 199 X 10*3/uL (140-440); RBC 3.36 X 10*6/uL (4.40-5.60); RDW 16.5 % (11.5-14.5)
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
[2021-10-01 12:30] LABS: Glucose,Whole Blood 151 mg/dL (75-99)
[2021-10-01 13:02] VITALS: BP 112/65; PULSE 68; RESP 17; TEMP 97.5
--- NOTE | 2021-10-01 14:02 | P.DS ---
Providers Date of admission: 09/21/21 14:44 Expected date of discharge: 10/01/21 Attending physician: Yudith Rivera Consults: 09/21/21 14:44 Consult Physician Routine Consulting Provider: Deshawn Kathleen Consult Reason/Comments: COPD Do you want consulting provider notified?: Yes 09/21/21 19:58 Consult Physician Routine Consulting Provider: Riana Tavarez Consult Reason/Comments: flu b + Do you want consulting provider notified?: Yes Primary care physician: [facility] Hospital Course: Final diagnosis Shortness of breath, acute on chronic congestive heart failure diastolic dysfunction, acute exacerbation Acute on chronic hypoxemic respiratory failure secondary to CHF exacerbation Chronic obstructive pulmonary disease, acute exacerbation Chronic hypoxic respiratory failure on oxygen at 4 L via nasal cannula at home Influenza B positive Acute tracheobronchitis sputum cultures positive for Klebsiella pneumonia. history of chronic atrial fibrillation History of CVA, TIA Gait dysfunction GI prophylaxis DVT prophylaxis Full code Discharge disposition Patient is being discharged in a stable condition with guarded prognosis to home. Patient will follow-up with [facility] in the outpatient setting upon discharge. Patient is to follow-up with pulmonary outpatient as scheduled. Patient will continue on oral Cipro 500 mg twice daily for the next 1 week. Jeancarlos encarnacion will also continue a prednisone taper. Total time taken is greater than 35 minutes. Hospital course This is a 76-year-old male who was recently admitted with chronic obstructive pulmonary disease, acute exacerbation along with fluid overload and also found to have influenza B and was being closely monitored. Multiple medical consultations following including pulmonary, cardiology, infectious disease and patient did complete Tamiflu course. Sputum culture finalized showing Klebsiella pneumonia sensitivities and was initiated started on Cipro twice daily and will continue for the next one week. Patient was maintained on IV steroids and we'll transition to oral prednisone and continue prednisone taper on discharge. Patient was also continued on IV Lasix for continued lower extrem ity edema and we'll transition to oral Lasix. Recommend follow-up with primary care provider at the [facility] and also instructed to follow-up with pulmonary in the outpatient setting. Currently no reports of chest pain, shortness of breath, or palpitations. Patient is afebrile. No reports of nausea or vomiting and patient is tolerating diet. Patient will be discharged home today. Guarded prognosis. Physical exam: GENERAL: The patient is alert and oriented x4, Well developed, well nourished. HEENT: Pupils are round and equally reacting to light. EOMI. no scleral icterus. No conjunctival pallor. Normocephalic, atraumatic. No pharyngeal erythema. No thyromegaly. CARDIOVASCULAR: S1 and S2 muffled PULMONARY: diminished breath sounds bilaterally with minimal expiratory wheezing noted. Scattered rhonchi noted ABDOMEN: soft. Nontender on exam. obese. non-distended, normoactive bowel sounds. No palpable organomegaly. MUSCULOSKELETAL: No joint swelling or deformity. EXTREMITIES: No cyanosis, clubbing, or pedal edema. generalized edema noted NEUROLOGICAL: Gross neurological examination did not reveal any focal deficits. SKIN: No rashes. Please refer to medication reconciliation sheet for a list of medications. The impression and plan of care has been dictated by Thelma Verma, Nurse Practitioner as directed. Dr. Renu MD I have performed a history and examination and MDM of this patient, discussed the same with the dictator, and agree with the dictator's assessment and plan as written ,documented as a scribe. Based on total visit time, I have performed more than 50% of the visit. Patient Condition at Discharge: Stable Plan - Discharge Summary Discharge Rx Participant: No New Discharge Prescriptions: New Ciprofloxacin HCl [Cipro] 500 mg PO BID 7 Days #14 tab Ipratropium-Albuterol Nebulize [Duoneb 0.5 mg-3 mg/3 ml Soln] 3 ml INHALATION RT-Q4H PRN ml PRN Reason: Shortness Of Breath Or Wheezing predniSONE 10 mg PO DIRECTED #30 tab Continue Pravastatin Sodium [Pravachol] 80 mg PO HS Isosorbide Mononitrate ER [Imdur] 30 mg PO DAILY Clopidogrel [Plavix] 75 mg PO DAILY #30 tab Ipratropium-Albuterol Nebulize [Duoneb 0.5 mg-3 mg/3 ml Soln] 3 ml INHALATION RT-QID #120 ml Albuterol Inhaler [Ventolin Hfa Inhaler] 2 puff INHALATION RT-Q6H PRN PRN Reason: Shortness Of Breath Metoprolol Succinate (ER) [Toprol XL] 100 mg PO DAILY Rivaroxaban [Xarelto] 20 mg PO DAILY Amitriptyline HCl [Elavil] 10 mg PO HS Loratadine 10 mg PO DAILY PRN PRN Reason: Allergy Symptoms Potassium Chloride ER [K-Dur 20] 20 meq PO BID Cholecalciferol [Vitamin D3 (25 Mcg = 1000 Iu)] 50 mcg PO DAILY ALPRAZolam [Xanax] 0.25 mg PO Q8H Pregabalin [Lyrica] 200 mg PO TID@0600,1400,2200 Pantoprazole [Protonix] 40 mg PO DAILY@0600 Nitroglycerin Sl Tabs [Nitrostat] 0.4 mg SL Q5M PRN PRN Reason: Chest Pain Spironolactone [Aldactone] 25 mg PO DAILY Fluticasone/Salmeterol [Advair 500-50 Diskus] 1 puff INHALATION RT-BID Escitalopram [Lexapro] 10 mg PO HS Collagenase [Santyl Ointment] 1 applic TOPICAL DAILY PRN PRN Reason: left arm skn tears Collagenase [Santyl Ointment] 1 applic TOPICAL HS Ensure Clear 240 ml PO BID Tamsulosin [Flomax] 0.4 mg PO HS HYDROcodone/APAP 7.5-325MG [[place] 7.5-325] 1 tab PO Q6H PRN PRN Reason: Pain Furosemide [Lasix] 20 mg PO DAILY@0900 Furosemide [Lasix] 40 mg PO DAILY@0600 Discontinued Doxycycline Monohydrate 100 mg PO BID@0900,1700 predniSONE See Taper PO DAILY Discharge Medication List Pravastatin Sodium [Pravachol] 80 mg PO HS 12/18/13 [History] Isosorbide Mononitrate ER [Imdur] 30 mg PO DAILY 06/08/19 [History] Clopidogrel [Plavix] 75 mg PO DAILY #30 tab 06/11/19 [Rx] Ipratropium-Albuterol Nebulize [Duoneb 0.5 mg-3 mg/3 ml Soln] 3 ml INHALATION RT-QID #120 ml 04/10/20 [Rx] Albuterol Inhaler [Ventolin Hfa Inhaler] 2 puff INHALATION RT-Q6H PRN 08/25/20 [History] Metoprolol Succinate (ER) [Toprol XL] 100 mg PO DAILY 08/25/20 [History] Amitriptyline HCl [Elavil] 10 mg PO HS 03/22/21 [History] Nitroglycerin Sl Tabs [Nitrostat] 0.4 mg SL Q5M PRN 03/22/21 [History] Rivaroxaban [Xarelto] 20 mg PO DAILY 03/22/21 [History] Fluticasone/Salmeterol [Advair 500-50 Diskus] 1 puff INHALATION RT-BID 06/13/21 [History] Loratadine 10 mg PO DAILY PRN 06/13/21 [History] Spironolactone [Aldactone] 25 mg PO DAILY 06/13/21 [History] Potassium Chloride ER [K-Dur 20] 20 meq PO BID 07/09/21 [History] Cholecalciferol [Vitamin D3 (25 Mcg = 1000 Iu)] 50 mcg PO DAILY 09/09/21 [History] Escitalopram [Lexapro] 10 mg PO HS 09/09/21 [History] ALPRAZolam [Xanax] 0.25 mg PO Q8H 09/21/21 [History] Collagenase [Santyl Ointment] 1 applic TOPICAL DAILY PRN 09/21/21 [History] Collagenase [Santyl Ointment] 1 applic TOPICAL HS 09/21/21 [History] Ensure Clear 240 ml PO BID 09/21/21 [History] Furosemide [Lasix] 20 mg PO DAILY@0900 09/21/21 [History] Furosemide [Lasix] 40 mg PO DAILY@0600 09/21/21 [History] HYDROcodone/APAP 7.5-325MG [[place] 7.5-325] 1 tab PO Q6H PRN 09/21/21 [History] Pantoprazole [Protonix] 40 mg PO DAILY@0600 09/21/21 [History] Pregabalin [Lyrica] 200 mg PO TID@0600,1400,2200 09/21/21 [History] Tamsulosin [Flomax] 0.4 mg PO HS 09/21/21 [History] Ciprofloxacin HCl [Cipro] 500 mg PO BID 7 Days #14 tab 10/01/21 [Rx] Ipratropium-Albuterol Nebulize [Duoneb 0.5 mg-3 mg/3 ml Soln] 3 ml INHALATION RT-Q4H PRN ml 10/01/21 [Rx] predniSONE 10 mg PO DIRECTED #30 tab 10/01/21 [Rx] Follow up Appointment(s)/Referral(s): Christa Chin MD [STAFF PHYSICIAN] - 10/30/21 2:30 pm [facility] [Primary Care Provider] - As Needed Activity/Diet/Wound Care/Special Instructions: [facility] Activity Limited until follow-up Follow-up with primary care on discharge Follow-up cardiology outpatient Follow-up pulmonary this week Continue taking medications as prescribed Continue with breathing inhalational treatments along with a prednisone taper Complete antibiotic therapy If swelling persists on the lower extremities recommend using compression stockings and or Pancho wraps from the toes up to the knees and elevate while at rest Discharge Disposition: HOME SELF-CARE
[2021-10-02] MEDS ORDERED: predniSONE 20 MG TAB PO SCH (09:00)
== END 2021-10-01 15:13 | disposition home or self-care (01) | DRG 291 ==
LOC: EC 11:55 → 5NMEDONC 14:44
PROVIDERS: ADMIT Hospitalist; ATTEND Hospitalist
DX: I50.43 Acute on chronic combined systolic (congestive) and diastolic (congestive) heart failure (principal); J15.0 Pneumonia due to Klebsiella pneumoniae; J96.21 Acute and chronic respiratory failure with hypoxia; J10.08 Influenza due to other identified influenza virus with other specified pneumonia; I48.19 Other persistent atrial fibrillation; I69.351 Hemiplegia and hemiparesis following cerebral infarction affecting right dominant side; I11.0 Hypertensive heart disease with heart failure; Z20.822 Contact with and (suspected) exposure to COVID-19; E78.5 Hyperlipidemia, unspecified; G47.33 Obstructive sleep apnea (adult) (pediatric); H91.90 Unspecified hearing loss, unspecified ear; I25.10 Atherosclerotic heart disease of native coronary artery without angina pectoris; I25.2 Old myocardial infarction; J20.9 Acute bronchitis, unspecified; J43.9 Emphysema, unspecified; J84.10 Pulmonary fibrosis, unspecified; I71.4 Abdominal aortic aneurysm, without rupture; H93.19 Tinnitus, unspecified ear; I69.398 Other sequelae of cerebral infarction; H53.8 Other visual disturbances; I49.3 Ventricular premature depolarization; Z95.1 Presence of aortocoronary bypass graft; Z99.81 Dependence on supplemental oxygen; Z79.01 Long term (current) use of anticoagulants; Z79.02 Long term (current) use of antithrombotics/antiplatelets; Z79.2 Long term (current) use of antibiotics; Z79.52 Long term (current) use of systemic steroids; Z79.899 Other long term (current) drug therapy; Z82.49 Family history of ischemic heart disease and other diseases of the circulatory system; Z87.891 Personal history of nicotine dependence; Z91.19 Patient's noncompliance with other medical treatment and regimen; Z95.5 Presence of coronary angioplasty implant and graft; Z98.42 Cataract extraction status, left eye; Z98.41 Cataract extraction status, right eye; Z96.1 Presence of intraocular lens; Z87.01 Personal history of pneumonia (recurrent); Z82.0 Family history of epilepsy and other diseases of the nervous system; Z80.9 Family history of malignant neoplasm, unspecified; Z87.81 Personal history of (healed) traumatic fracture; Z87.828 Personal history of other (healed) physical injury and trauma; Z98.890 Other specified postprocedural states
CPT/HCPCS: 36415; 71045; 71046; 80048; 80053; 81003; 83605; 83735; 83880; 84145; 84484; 85025; 85610; 85652; 85730; 86140; 87070; 87077; 87186; 87205; 87502; 87634; 87635; 93005; 94640; 94667; 94760; 96374; 96375; 99285

== ENCOUNTER 2021-10-26 08:49 | Inpatient (IN) | payer OTHER, MEDICARE ==
[2021-10-26] MEDS ORDERED: NOREPINEPHRINE 32 MG in SODIUM CHLORIDE 0.9% 218 ML IV ONE (09:00)
[2021-10-26] MEDS ORDERED: methylPREDNISolone SOD SUCCI 125 MG/2 ML VIAL IV STA (09:08)
[2021-10-26] MEDS ORDERED: IPRATROPIUM-ALBUTEROL 3 ML NEB INHALATION STA (09:08)
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
[2021-10-26 09:36] LABS: Albumin 3.4 g/dL (3.5-5.0); Calcium 8.8 mg/dL (8.4-10.2); Potassium 3.6 mmol/L (3.5-5.1); Total Bilirubin 1.2 mg/dL (0.2-1.3); Total Protein 5.9 g/dL (6.3-8.2)
[2021-10-26 09:41] LABS: ABG Base Excess 9.1 mmol/L; ABG HCO3 34 mmol/L (21-25); ABG Oxygen Saturation 98.3 % (94-97); ABG PCO2 55 mmHg (35-45); ABG PO2 97 mmHg (83-108); ABG TCO2 36 mmol/L (19-24); Allen Test Performed? Yes
[2021-10-26 09:48] LABS: Anisocytosis Slight; Basophils # (A) 0.1 k/uL (0-0.2); Basophils % (A) 0 %; Eosinophils % (A) 0 %; HCT 36.2 % (39.0-53.0); HGB 10.8 gm/dL (13.0-17.5); Hypochromasia Marked; Lymphocytes # (A) 0.9 k/uL (1.0-4.8); Lymphocytes % (A) 5 %; MCH 28.4 pg (25.0-35.0); Macrocytosis Slight; Mean Platelet Volume 9.1; Monocytes # (A) 0.4 k/uL (0-1.0); Monocytes % (A) 2 %; Neutrophils # (A) 15.6 k/uL (1.3-7.7); Neutrophils % (A) 92 %; Platelet Count 301 k/uL (150-450); RBC 3.81 m/uL (4.30-5.90); RDW 19.7 % (11.5-15.5)
--- NOTE | 2021-10-26 09:49 | XR ---
EXAMINATION TYPE: XR chest 1V portable DATE OF EXAM: 10/26/2021 COMPARISON: NONE HISTORY: dyspnea TECHNIQUE: Single frontal view of the chest is obtained. FINDINGS: Median sternotomy wires are present. Post-CABG clips the mediastinum. Heart mildly enlarge d. Hyperinflation. Bullous emphysematous change especially of the right upper lung. Interstitial rose ges persist along with small left pleural effusion and patchy left basilar and retrocardiac opacity. Old healed left-sided rib fracture deformities. . IMPRESSION: 1. COPD with bilateral infiltrate and pleural effusion. 2. Cardiomegaly
[2021-10-26 10:47] LABS: Partial Thromboplastin Time 22.6 sec (22.0-30.0); Prothrombin Time 10.8 sec (9.0-12.0)
[2021-10-26] MEDS ORDERED: SODIUM CHLORIDE 0.9% 250 ML IV STA (11:13)
[2021-10-26] MEDS ORDERED: IPRATROPIUM-ALBUTEROL 3 ML NEB INHALATION PRN (11:17)
[2021-10-26] MEDS ORDERED: ACETAMINOPHEN TAB 325 MG TAB PO PRN (11:17)
[2021-10-26] MEDS ORDERED: NALOXONE 0.4 MG/ML 1 ML VIAL IV PRN (11:17)
[2021-10-26] MEDS ORDERED: PNEUMONIA PROTOCOL UTILIZED 1 EACH MISC PO PRN (11:18)
[2021-10-26] MEDS ORDERED: AZITHROMYCIN 500 MG in SODIUM CHLORIDE 0.9% 250 ML IVPB STA (11:18)
[2021-10-26 11:34] LABS: Appearance,Urine Cloudy (Clear); Bilirubin,Urine Negative (Negative); Blood,Urine Small (Negative); Calcium Oxalate Crystals,Urine Few /hpf; Color,Urine Yellow; Glucose,Urine (UA) Negative (Negative); Hyaline Casts,Urine 52 /lpf (0-2); Ketones,Urine Negative (Negative); Leukocyte Esterase,Urine Small (Negative); Mucus,Urine Occasional /hpf; Nitrite,Urine Negative (Negative); PH, Urine 5.5 (5.0-8.0); Protein,Urine 1+ (Negative); RBC,Urine 9 /hpf (0-5); Specific Gravity,Urine 1.022 (1.001-1.035); Squamous Epithelial Cell,Urine 1 /hpf (0-4); WBC,Urine 8 /hpf (0-5)
[2021-10-26 13:26] LABS: Glucose,Whole Blood 211 mg/dL (75-99)
[2021-10-26] MEDS: IPRATROPIUM-ALBUTEROL 3 ML NEB INHALATION SCH ×3 (13:30→20:25)
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
[2021-10-26] MEDS: FUROSEMIDE 10 MG/ML 4 ML VIAL IV SCH ×2 (15:43→20:49)
[2021-10-26] MEDS: methylPREDNISolone SOD SUCCI 40 MG/ML 1 ML VIAL IV SCH ×2 (15:44→23:47)
[2021-10-26] MEDS: PANTOPRAZOLE 40 MG/10 ML VIAL IVP SCH (15:45)
[2021-10-26] MEDS: PIPERACILLIN-TAZOBACTAM 3.375 GM in SODIUM CHLORIDE 0.9% 100 ML IVPB SCH ×2 (15:46→23:47)
[2021-10-26] MEDS: SYMBICORT 160-4.5 MCG INHALER INHALATION SCH (20:25)
[2021-10-26] MEDS ORDERED: LORATADINE 10 MG TAB PO PRN (22:31)
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
[2021-10-27 06:13] LABS: Anisocytosis Slight; Basophils % (A) 0 %; Eosinophils % (A) 0 %; HCT 31.3 % (39.0-53.0); HGB 9.5 gm/dL (13.0-17.5); Hypochromasia Marked; Lymphocytes # (A) 0.3 k/uL (1.0-4.8); Lymphocytes % (A) 3 %; MCH 29.2 pg (25.0-35.0); MCHC 30.2 g/dL (31.0-37.0); MCV 96.6 fL (80.0-100.0); Macrocytosis Slight; Mean Platelet Volume 8.7; Monocytes # (A) 0.3 k/uL (0-1.0); Monocytes % (A) 3 %; Neutrophils % (A) 94 %; Platelet Count 244 k/uL (150-450); RBC 3.24 m/uL (4.30-5.90); RDW 19.3 % (11.5-15.5); WBC 10.7 k/uL (3.8-10.6)
[2021-10-27 06:35] LABS: ALT 23 U/L (4-49); AST 29 U/L (17-59); African American GFR (CKD) >90 (>60 ml/min/1.73 sqM); Alkaline Phosphatase 73 U/L (38-126); Anion Gap 8 mmol/L; Blood Urea Nitrogen 21 mg/dL (9-20); Carbon Dioxide 36 mmol/L (22-30); Chloride 94 mmol/L (98-107); Glucose 175 mg/dL (74-99); Non-African American GFR(CKD) >90 (>60 ml/min/1.73 sqM); Potassium 3.9 mmol/L (3.5-5.1); Sodium 138 mmol/L (137-145); Total Protein 5.4 g/dL (6.3-8.2)
--- NOTE | 2021-10-27 07:19 | XR ---
EXAMINATION TYPE: XR chest 1V portable DATE OF EXAM: 10/27/2021 HISTORY: Shortness of breath. COMPARISON: 10/26/2021 TECHNIQUE: Single view of the chest is submitted. FINDINGS: Demonstrated are scattered senescent parenchymal change. Persistent basilar infiltrates. Upper lobe emphysematous changes. The heart is stable. Hilar and mediastinal structures are within normal limits. Degenerative changes are seen of the dorsal spine. IMPRESSION: 1. Stable chest with the persistent basilar infiltrates.
[2021-10-27] MEDS: IPRATROPIUM-ALBUTEROL 3 ML NEB INHALATION SCH ×4 (07:46→20:55)
[2021-10-27] MEDS: SYMBICORT 160-4.5 MCG INHALER INHALATION SCH ×2 (07:46→20:55)
[2021-10-27] MEDS: FUROSEMIDE 10 MG/ML 4 ML VIAL IV SCH (09:00)
[2021-10-27] MEDS: METOPROLOL SUCCINATE (ER) 25 MG TAB.ER.24H PO SCH (09:00)
[2021-10-27] MEDS: SPIRONOLACTONE 25 MG TAB PO SCH (09:00)
[2021-10-27] MEDS: methylPREDNISolone SOD SUCCI 40 MG/ML 1 ML VIAL IV SCH ×3 (09:00→23:47)
[2021-10-27] MEDS ORDERED: AZITHROMYCIN 500 MG TAB PO SCH (09:00)
[2021-10-27] MEDS: PANTOPRAZOLE 40 MG/10 ML VIAL IVP SCH (09:00)
[2021-10-27] MEDS: PREGABALIN 100 MG CAP PO SCH ×3 (09:01→20:44)
[2021-10-27] MEDS: POTASSIUM CHLORIDE ER 20 MEQ TAB.ER PO SCH ×2 (09:01→20:45)
[2021-10-27] MEDS: DOCUSATE 100 MG CAP PO SCH ×2 (09:01→20:46)
[2021-10-27] MEDS: FERROUS SULFATE 325 MG TAB PO SCH ×2 (09:01→16:41)
[2021-10-27] MEDS: ISOSORBIDE MONONITRATE ER 60 MG TAB.ER.24H PO SCH (09:01)
[2021-10-27] MEDS: CHOLECALCIFEROL 25 MCG (1000 IU) TABLET PO SCH (09:01)
[2021-10-27] MEDS: PIPERACILLIN-TAZOBACTAM 3.375 GM in SODIUM CHLORIDE 0.9% 100 ML IVPB SCH ×3 (09:01→23:47)
--- NOTE | 2021-10-27 10:29 | CONS ---
CONSULTATION This is a 76-year-old gentleman with a history of CAD, prior bypass surgery without active myocardial ischemia, history of smoking in the past with COPD and also diastolic heart failure. He was recently discharged from the hospital after having been admitted for exacerbation of COPD and diastolic heart failure. However, he came back mainly because he was developing more shortness of breath, became unresponsive, and was placed on a BiPAP. His pCO2 was up to 55 with a pH of 7.4. There was also leukocytosis. Chest x-ray showed some bilateral infiltrates with small pleural effusion. He came into the hospital mainly with exacerbation of shortness of breath, worsening mentation, and some hypercarbia type features. He has chronic atrial fibrillation with fairly decent rate control. He has known CAD with prior bypass surgery without evidence of active ischemia. At the time of my evaluation he is actually feeling better. He received some IV fluids and then had also some Lasix. His lactate levels have come down. He feels better. He is sitting up and eating. Denies any chest pain. His shortness of breath has improved. PAST MEDICAL HISTORY: 1. COPD with recurrent episodes of exacerbation. Past history of smoking. 2. Chronic atrial fibrillation with decent rate control. 3. CAD with prior bypass surgery. 4. History of alcohol use in the past. There is a question of pulmonary fibrosis, COPD and acute bronchitis. Please refer to the chart for other information. HOME MEDICATIONS: Medications at home include Xarelto 20 mg daily, Aldactone, Lasix 40 in the morning, 20 mg in the evening. He also takes metoprolol succinate 75 mg daily, pravastatin 80 mg daily, and also some inhalers. PHYSICAL EXAMINATION: On examination, blood pressure is 110/70. Patient was for a short while on Levophed. Pulse rate is about 90, irregular. HEENT unremarkable. Fundus was not examined by me. Neck is supple. There is 1 cm JVD. No carotid bruit. Heart exam reveals S1, S2 with irregular rate and rhythm, short systolic murmur. Lungs reveal diminished air entry, scattered rhonchi. Abdomen is soft, nontender. Lower extremities reveal diminished pulses. Central nervous system is grossly within normal limits. IMPRESSION: 1. Exacerbation of chronic obstructive pulmonary disease in a patient with past history of smoking. 2. Probably acute bronchitis with elevated white count. 3. History of diastolic heart failure. 4. Coronary artery disease with prior bypass surgery. 5. Chronic atrial fibrillation. RECOMMENDATIONS: I recommend that we switch him from IV to oral Lasix starting this evening at 40 mg b.i.d., resume Aldactone 25 mg daily, continue with antibiotics, bronchodilators. Rate control is fairly optimal. Xarelto has been resumed. Overall prognosis remains guarded. Thank you very much for the consult. WALLY / CARMELO: [id number] /
--- NOTE | 2021-10-27 11:55 | P.PN ---
Subjective Progress Note Date: 10/27/21 Principal diagnosis: acute on chronic hypoxic respiratory failure, multifactorial. This is a 76-year-old white male with history of multiple medical problems including COPD, chronic diastolic congestive heart failure, patient was in ECF, apparently for the last 2 days, the patient has been complaining of cough and shortness of breath. His condition became much worse early this morning, patient was brought in by EMS, and he was unresponsive. Apparently the patient must have been hypercapnic. He was placed on BiPAP, and shortly after he was noted to have significant improvement. Patient gradually became arousable to voice, and was able to follow instructions. His chest x-ray showed evidence of COPD, and bilateral infiltrates with small bilateral pleural effusions and cardiomegaly. CBC showed leukocytosis. WBC count of 17 hemoglobin of 10.8. His ABG shortly after he was placed on BiPAP showed a pO2 of 97 pCO2 of 55 pH of 7.40. Patient was also noted to be a bit hypotensive, a central line was placed by the ER physician, and the patient was given fluid bolus, he was also started on norepinephrine. Patient is presently on 0.01 mcg/kg/m of norepinephrine. P atient is also on BiPAP, with IPAP of 10 and EPAP of 6, FiO2 at 45%. His BNP level was 3470 and his troponin was 0.153. Patient does not recall the events of how we ended up in the hospital, but apparently he remembers that for the last day or so he has been complaining of cough and shortness of breath, and apparently this morning he became unresponsive. Looking at the chart on his last admission, patient was discharged last on 10/19/2021, and apparently the patient has been on Xarelto for atrial fibrillation, his also known to have history of coronary artery disease, COPD, previous CVA, hypertension, and dyslipidemia. Patient is a heavy drinker, he drinks on the average of 6-8 beers a day. Reevaluated today on 10/27/2021, patient remains in the ICU, he is now on nasal cannula, he is on 4 L with O2 sats of 96%. At night he was on BiPAP at IPAP of 10 and EPAP of 5 and FiO2 of 36%. Patient is being treated for pneumonia, and possibly acute on chronic diastolic congestive heart failure. He has been on diuretics, has been receiving Zosyn for presumptive aspiration pneumonia. Clinically the patient is feeling better, breathing a lot easier, he does have history of alcohol abuse, and he is on [facility] protocol for potential alcohol withdrawal.CBC is relatively normal left was abnormal renal profile is normal. Chest x-ray continues to show bilateral infiltrates/interstitial edema is also possible Objective - Vital Signs Vital signs: Vital Signs Temp 97.4 F L 10/27/21 08:00 Pulse 84 10/27/21 11:08 Resp 20 10/27/21 10:00 BP 107/55 10/27/21 10:00 Pulse Ox 94 L 10/27/21 10:00 Intake & Output 10/26/21 10/27/21 10/27/21 18:59 06:59 18:59 Intake Total 135.158 662.005 130 Output Total 1245 1680 110 Balance -1109.842 -1017.995 20 Weight 109.769 kg 106.5 kg 106.5 kg Intake: IV 170 130 0.9 kvo 70 30 Piperacillin-Tazobactam 3 100 100 .375 gm In Sodium Chloride 0.9% 100 ml @ 25 mls/hr IVPB Q8HR [facility] Rx# :[id number] Intake, IV Titration 135.158 12.005 Amount Norepinephrine 32 mg In 35.158 12.005 Sodium Chloride 0.9% 218 ml @ 0.05 MCG/KG/MIN 2. 573 mls/hr IV .Q24H ONE Rx#:[id number] Piperacillin-Tazobactam 3 100 .375 gm In Sodium Chloride 0.9% 100 ml @ 25 mls/hr IVPB Q8HR [facility] Rx# :[id number] Oral 480 Output: Urine 1245 1680 110 Other: Voiding Method Indwelling Catheter Indwelling Catheter Indwelling Catheter - Exam Physical Exam: Revealed a 76-year-old white male in no distress, on few liters nasal cannula. Head: Atraumatic, normocephalic. HEENT:[Neck is supple.] [No neck masses.] [No thyromegaly.] [No JVD.] Chest: [diminished breath sounds and crackles at the bases. No rhonchi no wheezes. Cardiac Exam: [Normal S1 and S2, no S3 gallop, no murmur.] Abdomen: [Soft, nontender, no megaly, no rebound, no guarding, normal bowel sounds.] Extremities: [No clubbing, no edema, no cyanosis.] Neurological Exam: [No focal neurologic deficit.]alert oriented 3. Psychiatric: Normal mood, affect and normal mental status examination. - Labs CBC & Chem 7: 10/27/21 05:54 10/27/21 05:54 Labs: Abnormal Lab Results - Last 24 Hours (Table) 10/26/21 10/26/21 10/27/21 Range/Units 09:11 13:24 05:54 WBC 10.7 H (3.8-10.6) k/uL RBC 3.24 L (4.30-5.90) m/uL Hgb 9.5 L (13.0-17.5) gm/dL Hct 31.3 L (39.0-53.0) % MCHC 30.2 L (31.0-37.0) g/dL RDW 19.3 H (11.5-15.5) % Neutrophils # 10.0 H (1.3-7.7) k/uL Lymphocytes # 0.3 L (1.0-4.8) k/uL Chloride (98-107) mmol/L Carbon Dioxide (22-30) mmol/L BUN (9-20) mg/dL Glucose (74-99) mg/dL POC Glucose (mg/dL) 211 H (75-99) mg/dL Calcium (8.4-10.2) mg/dL Total Protein (6.3-8.2) g/dL Albumin (3.5-5.0) g/dL Procalcitonin 2.66 H (0.02-0.09) ng/mL 10/27/21 Range/Units 05:54 WBC (3.8-10.6) k/uL RBC (4.30-5.90) m/uL Hgb (13.0-17.5) gm/dL Hct (39.0-53.0) % MCHC (31.0-37.0) g/dL RDW (11.5-15.5) % Neutrophils # (1.3-7.7) k/uL Lymphocytes # (1.0-4.8) k/uL Chloride 94 L (98-107) mmol/L Carbon Dioxide 36 H (22-30) mmol/L BUN 21 H (9-20) mg/dL Glucose 175 H (74-99) mg/dL POC Glucose (mg/dL) (75-99) mg/dL Calcium 8.0 L (8.4-10.2) mg/dL Total Protein 5.4 L (6.3-8.2) g/dL Albumin 3.0 L (3.5-5.0) g/dL Procalcitonin (0.02-0.09) ng/mL Assessment and Plan Assessment: Impression: Acute on chronic hypoxic respiratory failure Acute exacerbation of COPD Suspect aspiration pneumonia possible sepsis Acute on chronic diastolic congestive heart failure Acute episode of unresponsiveness, likely related to acute metabolic encephalopathy, resolved after the patient arrived to the ER and he was placed on BiPAP. And on oxygen. Chronic atrial fibrillation History of hypertension History of previous MS History of obstructive sleep apnea syndrome, noncompliant with CPAP History of alcohol abuse Former smoker History of CVA/TIA Recommendation: Continue present supportive care measures Continue to monitor in the ICU use BiPAP as needed. In the meantime continue patient on nasal cannula. Continue bronchodilators. Gentle diuresis.continue Aldactone. Orally.continue Lasix 40 mg by mouth twice a day. Antibiotics/Zosyn. CIWA protocol. GI and DVT prophylaxis. Solu-Medrol. Updrafts/DuoNeb. We'll continue to follow. Time with Patient: Less than 30
[2021-10-27] MEDS: HYDROcodone/APAP 7.5-325MG 1 EACH TAB PO PRN ×2 (14:30→20:44)
[2021-10-27] MEDS: RIVAROXABAN 20 MG TAB PO SCH (16:41)
[2021-10-27 20:40] LABS: Glucose,Whole Blood 239 mg/dL (75-99)
[2021-10-27] MEDS: FUROSEMIDE 40 MG TAB PO SCH (20:45)
[2021-10-27] MEDS: ESCITALOPRAM 20 MG TAB PO SCH (20:45)
[2021-10-27] MEDS: TAMSULOSIN 0.4 MG CAP.ER.24H PO SCH (20:46)
[2021-10-27] MEDS: OLANZapine 2.5 MG TAB PO SCH (20:46)
[2021-10-27] MEDS: INSULIN ASPART (NovoLOG) 100 UNIT/ML VIAL SQ SCH (20:46)
[2021-10-27] MEDS: PRAVASTATIN SODIUM 80 MG TAB PO SCH (20:47)
[2021-10-28] MEDS: HYDROcodone/APAP 7.5-325MG 1 EACH TAB PO PRN ×2 (05:23→17:45)
[2021-10-28 07:00] LABS: Glucose,Whole Blood 179 mg/dL (75-99)
[2021-10-28] MEDS: FERROUS SULFATE 325 MG TAB PO SCH ×2 (07:03→17:35)
[2021-10-28] MEDS: INSULIN ASPART (NovoLOG) 100 UNIT/ML VIAL SQ SCH ×4 (07:03→21:17)
--- NOTE | 2021-10-28 07:28 | XR ---
EXAMINATION TYPE: XR chest 1V portable DATE OF EXAM: 10/28/2021 HISTORY: Shortness of breath. COMPARISON: 10/27/2021 TECHNIQUE: Single view of the chest is submitted. FINDINGS: Demonstrated are scattered senescent parenchymal change. Basilar infiltrates persist essentially unchanged. Upper lobe emphysematous changes redemonstrated. The heart is stable. Hilar and mediastinal structures are within normal limits. Degenerative changes are seen of the dorsal spine. IMPRESSION: 1. Stable chest.
[2021-10-28 08:05] LABS: Anisocytosis Slight; Basophils % (A) 0 %; Eosinophils % (A) 0 %; HCT 29.5 % (39.0-53.0); HGB 8.9 gm/dL (13.0-17.5); Hypochromasia Marked; Lymphocytes # (A) 0.3 k/uL (1.0-4.8); Lymphocytes % (A) 3 %; MCHC 30.1 g/dL (31.0-37.0); MCV 96.5 fL (80.0-100.0); Macrocytosis Slight; Mean Platelet Volume 8.8; Monocytes # (A) 0.2 k/uL (0-1.0); Monocytes % (A) 2 %; Neutrophils # (A) 10.7 k/uL (1.3-7.7); Neutrophils % (A) 95 %; Platelet Count 210 k/uL (150-450); RBC 3.06 m/uL (4.30-5.90); RDW 19.1 % (11.5-15.5); WBC 11.2 k/uL (3.8-10.6)
[2021-10-28] MEDS: IPRATROPIUM-ALBUTEROL 3 ML NEB INHALATION SCH ×4 (08:07→19:40)
[2021-10-28] MEDS: SYMBICORT 160-4.5 MCG INHALER INHALATION SCH ×2 (08:07→19:40)
[2021-10-28] MEDS: DOCUSATE 100 MG CAP PO SCH ×2 (08:26→21:17)
[2021-10-28] MEDS: FUROSEMIDE 40 MG TAB PO SCH (08:26)
[2021-10-28] MEDS: POTASSIUM CHLORIDE ER 20 MEQ TAB.ER PO SCH ×2 (08:26→21:17)
[2021-10-28] MEDS: PREGABALIN 100 MG CAP PO SCH ×3 (08:26→21:17)
[2021-10-28] MEDS: METOPROLOL SUCCINATE (ER) 25 MG TAB.ER.24H PO SCH (08:26)
[2021-10-28] MEDS: ISOSORBIDE MONONITRATE ER 60 MG TAB.ER.24H PO SCH (08:26)
[2021-10-28] MEDS: methylPREDNISolone SOD SUCCI 40 MG/ML 1 ML VIAL IV SCH ×3 (08:26→23:36)
[2021-10-28] MEDS: SPIRONOLACTONE 25 MG TAB PO SCH (08:26)
[2021-10-28] MEDS: CHOLECALCIFEROL 25 MCG (1000 IU) TABLET PO SCH (08:26)
[2021-10-28] MEDS: PANTOPRAZOLE 40 MG/10 ML VIAL IVP SCH (08:27)
[2021-10-28] MEDS: PIPERACILLIN-TAZOBACTAM 3.375 GM in SODIUM CHLORIDE 0.9% 100 ML IVPB SCH ×3 (08:27→23:36)
[2021-10-28 08:28] LABS: African American GFR (CKD) >90 (>60 ml/min/1.73 sqM); Anion Gap 6 mmol/L; Blood Urea Nitrogen 28 mg/dL (9-20); Calcium 8.1 mg/dL (8.4-10.2); Carbon Dioxide 34 mmol/L (22-30); Chloride 94 mmol/L (98-107); Glucose 157 mg/dL (74-99); Non-African American GFR(CKD) >90 (>60 ml/min/1.73 sqM); Potassium 3.9 mmol/L (3.5-5.1); Sodium 134 mmol/L (137-145)
--- NOTE | 2021-10-28 10:06 | PN ---
PROGRESS NOTE Mr. Kovacs is in atrial fibrillation. Rate is slightly faster. I am going to increase the Toprol to 100 mg b.i.d. He has exacerbation of COPD. No evidence of heart failure. He is stable otherwise. Vitals are stable. S1-S2 heard normally. Irregular rhythm noted. Short systolic murmur noted. Lungs reveal improved air entry. Abdomen and lower extremity exam unchanged. Plan is to increase Toprol-XL to 100 mg daily and see how he does. MMODL / IJN: [id number] /
[2021-10-28 11:55] LABS: Glucose,Whole Blood 215 mg/dL (75-99)
--- NOTE | 2021-10-28 11:56 | P.PN ---
Subjective Progress Note Date: 10/28/21 Principal diagnosis: acute on chronic hypoxic respiratory failure, multifactorial. This is a 76-year-old white male with history of multiple medical problems including COPD, chronic diastolic congestive heart failure, patient was in ECF, apparently for the last 2 days, the patient has been complaining of cough and shortness of breath. His condition became much worse early this morning, patient was brought in by EMS, and he was unresponsive. Apparently the patient must have been hypercapnic. He was placed on BiPAP, and shortly after he was noted to have significant improvement. Patient gradually became arousable to voice, and was able to follow instructions. His chest x-ray showed evidence of COPD, and bilateral infiltrates with small bilateral pleural effusions and cardiomegaly. CBC showed leukocytosis. WBC count of 17 hemoglobin of 10.8. His ABG shortly after he was placed on BiPAP showed a pO2 of 97 pCO2 of 55 pH of 7.40. Patient was also noted to be a bit hypotensive, a central line was placed by the ER physician, and the patient was given fluid bolus, he was also started on norepinephrine. Patient is presently on 0.01 mcg/kg/m of norepinephrine. P atient is also on BiPAP, with IPAP of 10 and EPAP of 6, FiO2 at 45%. His BNP level was 3470 and his troponin was 0.153. Patient does not recall the events of how we ended up in the hospital, but apparently he remembers that for the last day or so he has been complaining of cough and shortness of breath, and apparently this morning he became unresponsive. Looking at the chart on his last admission, patient was discharged last on 10/19/2021, and apparently the patient has been on Xarelto for atrial fibrillation, his also known to have history of coronary artery disease, COPD, previous CVA, hypertension, and dyslipidemia. Patient is a heavy drinker, he drinks on the average of 6-8 beers a day. Reevaluated today on 10/27/2021, patient remains in the ICU, he is now on nasal cannula, he is on 4 L with O2 sats of 96%. At night he was on BiPAP at IPAP of 10 and EPAP of 5 and FiO2 of 36%. Patient is being treated for pneumonia, and possibly acute on chronic diastolic congestive heart failure. He has been on diuretics, has been receiving Zosyn for presumptive aspiration pneumonia. Clinically the patient is feeling better, breathing a lot easier, he does have history of alcohol abuse, and he is on [facility] protocol for potential alcohol withdrawal.CBC is relatively normal left was abnormal renal profile is normal. Chest x-ray continues to show bilateral infiltrates/interstitial edema is also possible Reevaluated today on 10/28/2021, patient is now on the regular medical floor, seems to be doing better, he is on 4 L nasal cannula, O2 sats is 92%. Patient is still receiving treatment for acute on chronic diastolic congestive heart failure, and possibly underlying pneumonia. Patient may have developed aspiration pneumonia based on the clinical history. And he is still on Zosyn. Clinically improving. Labs are unremarkable including a relatively normal CBC except hemoglobin of 8.9 electrolytes are normal renal profile is normal. Patient clearly stated to me that he is feeling better since admission. Chest x-ray continues to show bilateral interstitial infiltrates/edema at the bases difficult to tell how much of it is really interstitial edema or pneumonia. Objective - Vital Signs Vital signs: Vital Signs Temp 97.9 F 10/28/21 08:22 Pulse 96 10/28/21 11:30 Resp 18 10/28/21 08:22 BP 111/53 10/28/21 08:22 Pulse Ox 92 L 10/28/21 08:22 Intake & Output 10/27/21 10/28/21 10/28/21 18:59 06:59 18:59 Intake Total 290 360 Output Total 1225 350 Balance -935 -350 360 Weight 106.5 kg 106.5 kg Intake: IV 290 0.9 kvo 90 Piperacillin-Tazobactam 3 200 .375 gm In Sodium Chloride 0.9% 100 ml @ 25 mls/hr IVPB Q8HR REPLACED BY [facility] Rx# :[id number] Oral 360 Output: Urine 1225 350 Other: Voiding Method Indwelling Catheter Indwelling Catheter Indwelling Catheter # Bowel Movements 1 - Exam Physical Exam: Revealed a 76-year-old white male in no distress, on 4 liters nasal cannula. Head: Atraumatic, normocephalic. HEENT:[Neck is supple.] [No neck masses.] [No thyromegaly.] [No JVD.] Chest: [diminished breath sounds and crackles at the bases. No rhonchi no w heezes. Cardiac Exam: [Normal S1 and S2, no S3 gallop, no murmur.] Abdomen: [Soft, nontender, no megaly, no rebound, no guarding, normal bowel sounds.] Extremities: [No clubbing, no edema, no cyanosis.] Neurological Exam: [No focal neurologic deficit.]alert oriented 3. Psychiatric: Normal mood, affect and normal mental status examination. - Labs CBC & Chem 7: 10/28/21 07:04 10/28/21 07:04 Labs: Abnormal Lab Results - Last 24 Hours (Table) 10/27/21 10/28/21 10/28/21 Range/Units 20:00 06:59 07:04 WBC 11.2 H (3.8-10.6) k/uL RBC 3.06 L (4.30-5.90) m/uL Hgb 8.9 L (13.0-17.5) gm/dL Hct 29.5 L (39.0-53.0) % MCHC 30.1 L (31.0-37.0) g/dL RDW 19.1 H (11.5-15.5) % Neutrophils # 10.7 H (1.3-7.7) k/uL Lymphocytes # 0.3 L (1.0-4.8) k/uL Sodium (137-145) mmol/L Chloride (98-107) mmol/L Carbon Dioxide (22-30) mmol/L BUN (9-20) mg/dL Glucose (74-99) mg/dL POC Glucose (mg/dL) 239 H 179 H (75-99) mg/dL Calcium (8.4-10.2) mg/dL 10/28/21 Range/Units 07:04 WBC (3.8-10.6) k/uL RBC (4.30-5.90) m/uL Hgb (13.0-17.5) gm/dL Hct (39.0-53.0) % MCHC (31.0-37.0) g/dL RDW (11.5-15.5) % Neutrophils # (1.3-7.7) k/uL Lymphocytes # (1.0-4.8) k/uL Sodium 134 L (137-145) mmol/L Chloride 94 L (98-107) mmol/L Carbon Dioxide 34 H (22-30) mmol/L BUN 28 H (9-20) mg/dL Glucose 157 H (74-99) mg/dL POC Glucose (mg/dL) (75-99) mg/dL Calcium 8.1 L (8.4-10.2) mg/dL Microbiology - Last 24 Hours (Table) 10/27/21 09:10 Gram Stain - Preliminary Sputum Sputum Culture - Preliminary 10/26/21 11:43 Blood Culture - Preliminary Blood No Growth after 24 hours 10/26/21 11:43 Blood Culture - Preliminary Blood No Growth after 24 hours Assessment and Plan Assessment: Impression: Acute on chronic hypoxic respiratory failure Acute exacerbation of COPD Suspect aspiration pneumonia possible sepsis Acute on chronic diastolic congestive heart failure Acute episode of unresponsiveness, likely related to acute metabolic encephalopathy, resolved after the patient arrived to the ER and he was placed on BiPAP. And on oxygen. Chronic atrial fibrillation History of hypertension History of previous PA History of obstructive sleep apnea syndrome, noncompliant with CPAP History of alcohol abuse Former smoker History of CVA/TIA Recommendation: Continue present supportive care measures Continue to monitor in the ICU use BiPAP as needed. In the meantime continue patient on nasal cannula. Continue bronchodilators. Gentle diuresis.Lasix and Aldactone Antibiotics/Zosyn. CIWA protocol. GI and DVT prophylaxis. Continue IV Solu-Medrol. We'll continue to follow. Time with Patient: Less than 30
[2021-10-28 16:41] LABS: Glucose,Whole Blood 235 mg/dL (75-99)
[2021-10-28] MEDS: RIVAROXABAN 20 MG TAB PO SCH (17:35)
[2021-10-28 20:10] LABS: Glucose,Whole Blood 152 mg/dL (75-99)
[2021-10-28] MEDS: OLANZapine 2.5 MG TAB PO SCH (21:17)
[2021-10-28] MEDS: ESCITALOPRAM 20 MG TAB PO SCH (21:17)
[2021-10-28] MEDS: TAMSULOSIN 0.4 MG CAP.ER.24H PO SCH (21:17)
[2021-10-28] MEDS: PRAVASTATIN SODIUM 80 MG TAB PO SCH (21:18)
--- NOTE | 2021-10-28 23:45 | P.PN ---
Subjective Progress Note Date: 10/27/21 Patient is a 76-year-old male with a known history of atrial fibrillation on anticoagulation with Xarelto, chronic CHF diastolic function, COPD, history of CVA/TIA with residual right-sided weakness, chronic hypoxic respiratory failure on oxygen at 4 L via nasal cannula, pulmonary fibrosis, obstructive sleep apnea,, GERD, hearing disorder/deafness, hypertension, hyperlipidemia, history of [place], CAD status post CABG and other multiple medical problems including previous history of smoking presents to ER with complaints of worsening shortness of breath. Patient was unresponsive and was in agonal breathing when he presented to ER. He was placed on CPAP by EMS and transition to BiPAP in the ER. Patient was transferred to MICU. Chest x-ray showed COPD with bilateral infiltrate and pleural effusion. Cardiomegaly. EKG showed atrial fibrillation with rapid ventricular rate heart rate 120 Laboratory data showed WBC 17.0 hemoglobin 10.8 and platelets 301 ABG showed pH of 7.4 PCO2 55 PO2 97 Sodium 137 potassium 3.6 chloride 96 bicarbonate 31 BUN 21 creatinine 1.04 Lactic acid 3.7 Troponin 0.153 proBNP 3470 Urinalysis showed cloudy with 1+ protein and a small blood and small leukocyte esterase RBCs 9 and WBC is 8. 10/27/2021 Patient is currently in the MICU. Currently transitioning to oxygen via nasal cannula at 4 L. Patient was BiPAP overnight. Patient is being continued IV Lasix due to acute renal chronic CHF. Also on antibiotics in the form of Zosyn. Continued on methylprednisolone as well. Cultures have been negative so far. Chest x-ray today showed stable chest with persistent bilateral infiltrates. Laboratory data showed WBC 10.7, hemoglobin 9.5 and platelets 244 BUN 21 creat inine 0.68 and bicarb level is 36. Blood sugar is 175 albumin 3.0 Current medications reviewed. Objective - Vital Signs Vital signs: Vital Signs Temp 98.3 F 10/27/21 12:00 Pulse 93 10/27/21 15:00 Resp 18 10/27/21 15:00 BP 89/71 10/27/21 15:00 Pulse Ox 97 10/27/21 15:00 Intake & Output 10/26/21 10/27/21 10/27/21 18:59 06:59 18:59 Intake Total 135.158 662.005 170 Output Total 1245 1680 1145 Balance -1109.842 -1017.995 -975 Weight 109.769 kg 106.5 kg 106.5 kg Intake: IV 170 170 0.9 kvo 70 70 Piperacillin-Tazobactam 3 100 100 .375 gm In Sodium Chloride 0.9% 100 ml @ 25 mls/hr IVPB Q8HR [facility] Rx# :[id number] Intake, IV Titration 135.158 12.005 Amount Norepinephrine 32 mg In 35.158 12.005 Sodium Chloride 0.9% 218 ml @ 0.05 MCG/KG/MIN 2. 573 mls/hr IV .Q24H ONE Rx#:[id number] Piperacillin-Tazobactam 3 100 .375 gm In Sodium Chloride 0.9% 100 ml @ 25 mls/hr IVPB Q8HR [facility] Rx# :[id number] Oral 480 Output: Urine 1245 1680 1145 Other: Voiding Method Indwelling Catheter Indwelling Catheter Indwelling Catheter # Bowel Movements 1 - Exam PHYSICAL EXAMINATION: Patient is lying in the bed comfortably, no acute distress, awake alert and oriented.. HEENT: Normocephalic. Neck is supple. Pupils reactive. Nostrils clear. Oral cavity is moist. Neck reveals no JVD, carotid bruits, or thyromegaly. CHEST EXAMINATION: Trachea is central. Symmetrical expansion. Bibasilar diminished sounds and scattered crackles. .. CARDIAC: Normal S1, S2 with no gallops. No murmurs ABDOMEN: Soft. Bowel sounds normal. No organomegaly. No abdominal bruits. Extremities: Bilateral trace edema. No clubbing or cyanosis Neurologically awake, alert, oriented x3 with well-coordinated movements. No focal deficits noted Skin: No rash or skin lesions. Psychiatric: Cooperative. Nonsuicidal Musculoskeletal: No joint swelling or deformity. Normal range of motion. - Labs CBC & Chem 7: 10/28/21 07:04 10/28/21 07:04 Labs: Abnormal Lab Results - Last 24 Hours (Table) 10/26/21 10/27/21 10/27/21 Range/Units 09:11 05:54 05:54 WBC 10.7 H (3.8-10.6) k/uL RBC 3.24 L (4.30-5.90) m/uL Hgb 9.5 L (13.0-17.5) gm/dL Hct 31.3 L (39.0-53.0) % MCHC 30.2 L (31.0-37.0) g/dL RDW 19.3 H (11.5-15.5) % Neutrophils # 10.0 H (1.3-7.7) k/uL Lymphocytes # 0.3 L (1.0-4.8) k/uL Chloride 94 L (98-107) mmol/L Carbon Dioxide 36 H (22-30) mmol/L BUN 21 H (9-20) mg/dL Glucose 175 H (74-99) mg/dL Calcium 8.0 L (8.4-10.2) mg/dL Total Protein 5.4 L (6.3-8.2) g/dL Albumin 3.0 L (3.5-5.0) g/dL Procalcitonin 2.66 H (0.02-0.09) ng/mL Microbiology - Last 24 Hours (Table) 10/26/21 11:43 Blood Culture - Preliminary Blood No Growth after 24 hours 10/26/21 11:43 Blood Culture - Preliminary Blood No Growth after 24 hours Assessment and Plan Assessment: Shortness of breath is multifactorial due to acute COPD and CHF exacerbation and pneumonia Acute on chronic hypoxic respiratory failure requiring BiPAP--4L NC Acute COPD exacerbation Acute on chronic CHF with diastolic dysfunction Lactic acidosis 3.7 on admission Mildly elevated troponin level likely due to demand mismatch Chronic hypoxic respiratory failure requiring 4 L oxygen via nasal cannula Chronic atrial fibrillation with rapid ventricular rate on admission History of CVA/TIA with right-sided weakness Coronary disease s/p CABG history History of [place] GERD Hearing disorder/deafness Hypertension Hyperlipidemia Previous history of smoking History of AAA repair Plan: Patient will be continued on antibiotics along with Zosyn. Was given a dose of ceftriaxone azithromycin in the ER. Continue with IV steroids and IV Lasix. Patient is in the MICU. Transition to oxygen via nasal cannula at 4 L. Continue the home medications and follow closely. Follow-up lipids labs tomorrow. Prognosis is guarded at this time. Time with Patient: Greater than 30
--- NOTE | 2021-10-28 23:47 | P.PN ---
Subjective Progress Note Date: 10/28/21 Patient is a 76-year-old male with a known history of atrial fibrillation on anticoagulation with Xarelto, chronic CHF diastolic function, COPD, history of CVA/TIA with residual right-sided weakness, chronic hypoxic respiratory failure on oxygen at 4 L via nasal cannula, pulmonary fibrosis, obstructive sleep apnea,, GERD, hearing disorder/deafness, hypertension, hyperlipidemia, history of [place], CAD status post CABG and other multiple medical problems including previous history of smoking presents to ER with complaints of worsening shortness of breath. Patient was unresponsive and was in agonal breathing when he presented to ER. He was placed on CPAP by EMS and transition to BiPAP in the ER. Patient was transferred to MICU. Chest x-ray showed COPD with bilateral infiltrate and pleural effusion. Cardiomegaly. EKG showed atrial fibrillation with rapid ventricular rate heart rate 120 Laboratory data showed WBC 17.0 hemoglobin 10.8 and platelets 301 ABG showed pH of 7.4 PCO2 55 PO2 97 Sodium 137 potassium 3.6 chloride 96 bicarbonate 31 BUN 21 creatinine 1.04 Lactic acid 3.7 Troponin 0.153 proBNP 3470 Urinalysis showed cloudy with 1+ protein and a small blood and small leukocyte esterase RBCs 9 and WBC is 8. 10/27/2021 Patient is currently in the MICU. Currently transitioning to oxygen via nasal cannula at 4 L. Patient was BiPAP overnight. Patient is being continued IV Lasix due to acute renal chronic CHF. Also on antibiotics in the form of Zosyn. Continued on methylprednisolone as well. Cultures have been negative so far. Chest x-ray today showed stable chest with persistent bilateral infiltrates. Laboratory data showed WBC 10.7, hemoglobin 9.5 and platelets 244 BUN 21 creat inine 0.68 and bicarb level is 36. Blood sugar is 175 albumin 3.0 10/28/2021 Patient is currently resting in bed. Awake alert and oriented x3. Currently on 4 L oxygen via nasal cannula. Patient was transferred to medical floor yesterday. Was using BiPAP last night. Otherwise patient is being continued IV diuretics and will be changed to by mouth Lasix from tomorrow. Patient is also on IV antibiotics and IV steroids. Chest x-ray today showed stable chest. Patient has been afebrile. Laboratory data showed WBC 11.2 hemoglobin 8.9 and platelets 210 Sodium 134 potassium 3.9 chloride 94 bicarbonate 32 BUN 28 and creatinine 0.74 and calcium 8.1. Pulmonary and cardiology is on board. Current medications reviewed. Objective - Vital Signs Vital signs: Vital Signs Temp 97.8 F 10/28/21 20:00 Pulse 75 10/28/21 20:00 Resp 16 10/28/21 20:00 BP 131/77 10/28/21 20:00 Pulse Ox 97 10/28/21 20:00 Intake & Output 10/28/21 10/28/21 10/29/21 06:59 18:59 06:59 Intake Total 600 Output Total 350 1700 Balance -350 -1100 Weight 106.5 kg Intake: Oral 600 Output: Urine 350 1700 Other: Voiding Method Indwelling Catheter Indwelling Catheter Indwelling Catheter - Exam PHYSICAL EXAMINATION: Patient is lying in the bed comfortably, no acute distress, awake alert and oriented.. HEENT: Normocephalic. Neck is supple. Pupils reactive. Nostrils clear. Oral cavity is moist. Neck reveals no JVD, carotid bruits, or thyromegaly. CHEST EXAMINATION: Trachea is central. Symmetrical expansion. Bibasilar diminished sounds and scattered crackles. .. CARDIAC: Normal S1, S2 with no gallops. No murmurs ABDOMEN: Soft. Bowel sounds normal. No organomegaly. No abdominal bruits. Extremities: Bilateral trace edema. No clubbing or cyanosis Neurologically awake, alert, oriented x3 with well-coordinated movements. No focal deficits noted Skin: No rash or skin lesions. Psychiatric: Cooperative. Nonsuicidal Musculoskeletal: No joint swelling or deformity. Normal range of motion. - Labs CBC & Chem 7: 10/28/21 07:04 10/28/21 07:04 Labs: Abnormal Lab Results - Last 24 Hours (Table) 10/28/21 10/28/21 10/28/21 Range/Units 06:59 07:04 07:04 WBC 11.2 H (3.8-10.6) k/uL RBC 3.06 L (4.30-5.90) m/uL Hgb 8.9 L (13.0-17.5) gm/dL Hct 29.5 L (39.0-53.0) % MCHC 30.1 L (31.0-37.0) g/dL RDW 19.1 H (11.5-15.5) % Neutrophils # 10.7 H (1.3-7.7) k/uL Lymphocytes # 0.3 L (1.0-4.8) k/uL Sodium 134 L (137-145) mmol/L Chloride 94 L (98-107) mmol/L Carbon Dioxide 34 H (22-30) mmol/L BUN 28 H (9-20) mg/dL Glucose 157 H (74-99) mg/dL POC Glucose (mg/dL) 179 H (75-99) mg/dL Calcium 8.1 L (8.4-10.2) mg/dL 10/28/21 10/28/21 10/28/21 Range/Units 11:54 16:39 20:09 WBC (3.8-10.6) k/uL RBC (4.30-5.90) m/uL Hgb (13.0-17.5) gm/dL Hct (39.0-53.0) % MCHC (31.0-37.0) g/dL RDW (11.5-15.5) % Neutrophils # (1.3-7.7) k/uL Lymphocytes # (1.0-4.8) k/uL Sodium (137-145) mmol/L Chloride (98-107) mmol/L Carbon Dioxide (22-30) mmol/L BUN (9-20) mg/dL Glucose (74-99) mg/dL POC Glucose (mg/dL) 215 H 235 H 152 H (75-99) mg/dL Calcium (8.4-10.2) mg/dL Microbiology - Last 24 Hours (Table) 10/26/21 11:43 Blood Culture - Preliminary Blood No Growth after 48 hours 10/26/21 11:43 Blood Culture - Preliminary Blood No Growth after 48 hours 10/27/21 09:10 Gram Stain - Preliminary Sputum Sputum Culture - Preliminary Assessment and Plan Assessment: Shortness of breath is multifactorial due to acute COPD and CHF exacerbation and pneumonia Acute on chronic hypoxic respiratory failure requiring BiPAP--4L NC Acute COPD exacerbation Acute on chronic CHF with diastolic dysfunction Lactic acidosis 3.7 on admission Mildly elevated troponin level likely due to demand mismatch Chronic hypoxic respiratory failure requiring 4 L oxygen via nasal cannula Chronic atrial fibrillation with rapid ventricular rate on admission History of CVA/TIA with right-sided weakness Coronary disease s/p CABG history History of [place] GERD Hearing disorder/deafness Hypertension Hyperlipidemia Previous history of smoking History of AAA repair Plan: Patient will be continued on antibiotics along with Zosyn. Was given a dose of ceftriaxone azithromycin in the ER. Continue with IV steroids and IV Lasix. Transitioned to oxygen via nasal cannula at 4 L. Continue the home medications and follow closely. Follow-up lipids labs tomorrow. Prognosis is guarded at this time. Time with Patient: Greater than 30
[2021-10-29 06:14] LABS: Glucose,Whole Blood 167 mg/dL (75-99)
[2021-10-29] MEDS: INSULIN ASPART (NovoLOG) 100 UNIT/ML VIAL SQ SCH ×4 (06:35→21:33)
[2021-10-29] MEDS: PANTOPRAZOLE 40 MG TABLET PO SCH (06:36)
[2021-10-29] MEDS: FERROUS SULFATE 325 MG TAB PO SCH ×2 (06:36→17:38)
[2021-10-29] MEDS: HYDROcodone/APAP 7.5-325MG 1 EACH TAB PO PRN ×3 (06:50→23:20)
[2021-10-29 07:14] LABS: Anisocytosis Slight; Basophils % (A) 0 %; Eosinophils % (A) 0 %; HCT 30.3 % (39.0-53.0); HGB 8.9 gm/dL (13.0-17.5); Hypochromasia Marked; Lymphocytes # (A) 0.3 k/uL (1.0-4.8); Lymphocytes % (A) 2 %; MCH 28.5 pg (25.0-35.0); MCHC 29.4 g/dL (31.0-37.0); Macrocytosis Slight; Mean Platelet Volume 8.8; Monocytes # (A) 0.3 k/uL (0-1.0); Monocytes % (A) 2 %; Neutrophils % (A) 95 %; Platelet Count 186 k/uL (150-450); RBC 3.13 m/uL (4.30-5.90); RDW 18.8 % (11.5-15.5); WBC 11.6 k/uL (3.8-10.6)
[2021-10-29 08:33] LABS: African American GFR (CKD) >90 (>60 ml/min/1.73 sqM); Anion Gap 6 mmol/L; Blood Urea Nitrogen 31 mg/dL (9-20); Calcium 8.3 mg/dL (8.4-10.2); Carbon Dioxide 33 mmol/L (22-30); Chloride 99 mmol/L (98-107); Glucose 154 mg/dL (74-99); Non-African American GFR(CKD) >90 (>60 ml/min/1.73 sqM); Sodium 138 mmol/L (137-145)
[2021-10-29] MEDS: DOCUSATE 100 MG CAP PO SCH ×2 (08:49→21:32)
[2021-10-29] MEDS: PREGABALIN 100 MG CAP PO SCH ×3 (08:49→21:33)
[2021-10-29] MEDS: SPIRONOLACTONE 25 MG TAB PO SCH (08:49)
[2021-10-29] MEDS: FUROSEMIDE 40 MG TAB PO SCH ×2 (08:49→17:39)
[2021-10-29] MEDS: methylPREDNISolone SOD SUCCI 40 MG/ML 1 ML VIAL IV SCH ×3 (08:49→23:20)
[2021-10-29] MEDS: POTASSIUM CHLORIDE ER 20 MEQ TAB.ER PO SCH ×2 (08:49→21:33)
[2021-10-29] MEDS: CHOLECALCIFEROL 25 MCG (1000 IU) TABLET PO SCH (08:49)
[2021-10-29] MEDS: METOPROLOL SUCCINATE (ER) 100 MG TAB.ER.24H PO SCH (08:49)
[2021-10-29] MEDS: ISOSORBIDE MONONITRATE ER 60 MG TAB.ER.24H PO SCH (08:49)
[2021-10-29] MEDS: PIPERACILLIN-TAZOBACTAM 3.375 GM in SODIUM CHLORIDE 0.9% 100 ML IVPB SCH ×3 (08:50→23:20)
[2021-10-29] MEDS: IPRATROPIUM-ALBUTEROL 3 ML NEB INHALATION SCH ×4 (09:00→19:44)
[2021-10-29] MEDS: SYMBICORT 160-4.5 MCG INHALER INHALATION SCH ×2 (09:00→19:44)
[2021-10-29 11:02] LABS: T4, Free (Free Thyroxine) 0.59 ng/dL (0.78-2.19)
[2021-10-29 12:17] LABS: Glucose,Whole Blood 258 mg/dL (75-99)
--- NOTE | 2021-10-29 12:34 | XR ---
EXAMINATION TYPE: XR chest 1V portable DATE OF EXAM: 10/29/2021 COMPARISON: Chest x-ray 10/28/[address] 02/18/2019 HISTORY: Shortness of breath TECHNIQUE: Single frontal view of the chest is obtained. FINDINGS: Patchy density is present in the bilateral lower lobes, there is blunting of the costophre nacho angles. Bandlike area of scarring may be present in the right midlung as are the left upper lobe. No evident pneumothorax. Cardiac mediastinal silhouette is stable, aorta is dense and likely ectatic . There are overlying leads. IMPRESSION: Correlate for possible pneumonia versus edema, there is underlying emphysema and probabl e scarring, interstitial changes and hiatal hernia, aortic aneurysm
--- NOTE | 2021-10-29 14:01 | P.PN ---
Subjective Progress Note Date: 10/29/21 HISTORY OF PRESENT ILLNESS: Patient examined this morning at the bedside. Patient denies chest pain or pressure. He denies shortness of breath. Telemetry reveals atrial fibrillation with heart rates in the 90s. Vital signs are stable. PHYSICAL EXAM: VITAL SIGNS: Reviewed. GENERAL: Well-developed in no acute distress. NECK: Supple. No JVD or thyromegaly LUNGS: Respirations even and unlabored. Lungs diminished to auscultation bilaterally. HEART: Irregular rate and rhythm. S1 and S2 heard. EXTREMITIES: Normal range of motion. No clubbing or cyanosis. Peripheral pulses intact. No lower extremity edema ASSESSMENT: Shortness of breath Pneumonia Acute COPD exacerbation Chronic hypoxic respiratory failure Permanent atrial fibrillation Coronary artery disease with previous CABG History of CVA/TIA Hypertension Hyperlipidemia PLAN: Continue current cardiac medications Continue metoprolol succinate 100 mg the morning. Add 50 mg at night for optimal heart rate control. Continue telemetry monitoring Further recommendations pending patient course Nurse practitioner note has been reviewed by physician. Signing provider agrees with the documented findings, assessment, and plan of care. Objective - Vital Signs Vital signs: Vital Signs Temp 97.0 F L 10/29/21 08:00 Pulse 101 H 10/29/21 12:13 Resp 18 10/29/21 12:13 BP 133/65 10/29/21 08:00 Pulse Ox 93 L 10/29/21 09:01 Intake & Output 10/28/21 10/29/21 10/29/21 18:59 06:59 18:59 Intake Total 600 600 Output Total 1700 650 Balance -1100 -650 600 Intake: Oral 600 600 Output: Urine 1700 650 Other: Voiding Method Indwelling Catheter Indwelling Catheter Indwelling Catheter - Labs CBC & Chem 7: 10/29/21 06:22 10/29/21 06:22 Labs: Abnormal Lab Results - Last 24 Hours (Table) 10/28/21 10/28/21 10/29/21 Range/Units 16:39 20:09 06:02 WBC (3.8-10.6) k/uL RBC (4.30-5.90) m/uL Hgb (13.0-17.5) gm/dL Hct (39.0-53.0) % MCHC (31.0-37.0) g/dL RDW (11.5-15.5) % Neutrophils # (1.3-7.7) k/uL Lymphocytes # (1.0-4.8) k/uL Carbon Dioxide (22-30) mmol/L BUN (9-20) mg/dL Glucose (74-99) mg/dL POC Glucose (mg/dL) 235 H 152 H 167 H (75-99) mg/dL Calcium (8.4-10.2) mg/dL TSH (0.465-4.680) mIU/L Free T4 (0.78-2.19) ng/dL 10/29/21 10/29/21 10/29/21 Range/Units 06:22 06:22 06:22 WBC 11.6 H (3.8-10.6) k/uL RBC 3.13 L (4.30-5.90) m/uL Hgb 8.9 L (13.0-17.5) gm/dL Hct 30.3 L (39.0-53.0) % MCHC 29.4 L (31.0-37.0) g/dL RDW 18.8 H (11.5-15.5) % Neutrophils # 11.0 H (1.3-7.7) k/uL Lymphocytes # 0.3 L (1.0-4.8) k/uL Carbon Dioxide 33 H (22-30) mmol/L BUN 31 H (9-20) mg/dL Glucose 154 H (74-99) mg/dL POC Glucose (mg/dL) (75-99) mg/dL Calcium 8.3 L (8.4-10.2) mg/dL TSH 0.207 L (0.465-4.680) mIU/L Free T4 0.59 L (0.78-2.19) ng/dL 10/29/21 Range/Units 12:12 WBC (3.8-10.6) k/uL RBC (4.30-5.90) m/uL Hgb (13.0-17.5) gm/dL Hct (39.0-53.0) % MCHC (31.0-37.0) g/dL RDW (11.5-15.5) % Neutrophils # (1.3-7.7) k/uL Lymphocytes # (1.0-4.8) k/uL Carbon Dioxide (22-30) mmol/L BUN (9-20) mg/dL Glucose (74-99) mg/dL POC Glucose (mg/dL) 258 H (75-99) mg/dL Calcium (8.4-10.2) mg/dL TSH (0.465-4.680) mIU/L Free T4 (0.78-2.19) ng/dL Microbiology - Last 24 Hours (Table) 10/27/21 09:10 Gram Stain - Preliminary Sputum Sputum Culture - Preliminary Mery albicans Gram Neg Bacilli 10/26/21 11:43 Blood Culture - Preliminary Blood No Growth after 48 hours 10/26/21 11:43 Blood Culture - Preliminary Blood No Growth after 48 hours
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
--- NOTE | 2021-10-29 15:16 | P.PN ---
Subjective Progress Note Date: 10/29/21 Principal diagnosis: COPD exacerbation. Reevaluated today on 10/27/2021, patient remains in the ICU, he is now on nasal cannula, he is on 4 L with O2 sats of 96%. At night he was on BiPAP at IPAP of 10 and EPAP of 5 and FiO2 of 36%. Patient is being treated for pneumonia, and p ossibly acute on chronic diastolic congestive heart failure. He has been on diuretics, has been receiving Zosyn for presumptive aspiration pneumonia. Clinically the patient is feeling better, breathing a lot easier, he does have history of alcohol abuse, and he is on [facility] protocol for potential alcohol withdrawal.CBC is relatively normal left was abnormal renal profile is normal. Chest x-ray continues to show bilateral infiltrates/interstitial edema is also possible Reevaluated today on 10/28/2021, patient is now on the regular medical floor, seems to be doing better, he is on 4 L nasal cannula, O2 sats is 92%. Patient is still receiving treatment for acute on chronic diastolic congestive heart failure, and possibly underlying pneumonia. Patient may have developed aspiration pneumonia based on the clinical history. And he is still on Zosyn. Clinically improving. Labs are unremarkable including a relatively normal CBC except hemoglobin of 8.9 electrolytes are normal renal profile is normal. Patient clearly stated to me that he is feeling better since admission. Chest x-ray continues to show bilateral interstitial infiltrates/edema at the bases difficult to tell how much of it is really interstitial edema or pneumonia. Progress note dated 10/29/2021. 76-year-old male who was in the intensive care unit, but is currently seen on the general medical floor, room 368. Currently, he's on 4 L nasal cannula. The patient will use his home CPAP tonight. Last night, use a hospital BiPAP system, with settings of 10 and 5 and 36%. He's feeling much improved. His shortness of breath is much improved. He is currently not receiving any IV fluids. I have includes a white count 9.6, hemoglobin 8.9, hematocrit 30.3, and platelet count 186,000. Sodium 138, potassium 4, chlorides 99, CO2 33, BUN 31, and creatinine 0.66. Chest x-ray shows some patchy densities in the bilateral lower lobes, with blunting of the costophrenic angles. Objective - Vital Signs Vital signs: Vital Signs Temp 97.0 F L 10/29/21 08:00 Pulse 101 H 10/29/21 12:13 Resp 18 10/29/21 12:13 BP 133/65 10/29/21 08:00 Pulse Ox 93 L 10/29/21 09:01 Intake & Output 10/28/21 10/29/21 10/29/21 18:59 06:59 18:59 Intake Total 600 600 Output Total 1700 650 Balance -1100 -650 600 Intake: Oral 600 600 Output: Urine 1700 650 Other: Voiding Method Indwelling Catheter Indwelling Catheter Indwelling Catheter - Exam No acute distress, oriented 3. Resting comfortably in bed. Currently on 4 L nasal cannula. No conversational dyspnea or use of accessory muscles. HEENT examination is grossly unremarkable. Neck supple. Full range of motion. No adenopathy thyromegaly or neck vein distention. Cardiovascular examination reveals regular rhythm rate. S1-S2 normal. No S3 or S4. No discernible murmur noted. Heart rate 97 bpm. Lungs reveal scattered bilateral rhonchi. No wheezes. No crackles. Breath sounds equal bilaterally. Saturations are 93% on 4 L. Abdomen soft bowel sounds are heard. No masses or tenderness. Extremities are intact. No cyanosis clubbing or edema. Skin is without rash or lesion. Neurologic examination is brief but nonfocal. - Labs CBC & Chem 7: 10/29/21 06:22 10/29/21 06:22 Labs: Abnormal Lab Results - Last 24 Hours (Table) 10/28/21 10/28/21 10/29/21 Range/Units 16:39 20:09 06:02 WBC (3.8-10.6) k/uL RBC (4.30-5.90) m/uL Hgb (13.0-17.5) gm/dL Hct (39.0-53.0) % MCHC (31.0-37.0) g/dL RDW (11.5-15.5) % Neutrophils # (1.3-7.7) k/uL Lymphocytes # (1.0-4.8) k/uL Carbon Dioxide (22-30) mmol/L BUN (9-20) mg/dL Glucose (74-99) mg/dL POC Glucose (mg/dL) 235 H 152 H 167 H (75-99) mg/dL Calcium (8.4-10.2) mg/dL TSH (0.465-4.680) mIU/L Free T4 (0.78-2.19) ng/dL 10/29/21 10/29/21 10/29/21 Range/Units 06:22 06:22 06:22 WBC 11.6 H (3.8-10.6) k/uL RBC 3.13 L (4.30-5.90) m/uL Hgb 8.9 L (13.0-17.5) gm/dL Hct 30.3 L (39.0-53.0) % MCHC 29.4 L (31.0-37.0) g/dL RDW 18.8 H (11.5-15.5) % Neutrophils # 11.0 H (1.3-7.7) k/uL Lymphocytes # 0.3 L (1.0-4.8) k/uL Carbon Dioxide 33 H (22-30) mmol/L BUN 31 H (9-20) mg/dL Glucose 154 H (74-99) mg/dL POC Glucose (mg/dL) (75-99) mg/dL Calcium 8.3 L (8.4-10.2) mg/dL TSH 0.207 L (0.465-4.680) mIU/L Free T4 0.59 L (0.78-2.19) ng/dL 10/29/21 Range/Units 12:12 WBC (3.8-10.6) k/uL RBC (4.30-5.90) m/uL Hgb (13.0-17.5) gm/dL Hct (39.0-53.0) % MCHC (31.0-37.0) g/dL RDW (11.5-15.5) % Neutrophils # (1.3-7.7) k/uL Lymphocytes # (1.0-4.8) k/uL Carbon Dioxide (22-30) mmol/L BUN (9-20) mg/dL Glucose (74-99) mg/dL POC Glucose (mg/dL) 258 H (75-99) mg/dL Calcium (8.4-10.2) mg/dL TSH (0.465-4.680) mIU/L Free T4 (0.78-2.19) ng/dL Microbiology - Last 24 Hours (Table) 10/26/21 11:43 Blood Culture - Preliminary Blood No Growth after 72 hours 10/26/21 11:43 Blood Culture - Preliminary Blood No Growth after 72 hours 10/27/21 09:10 Gram Stain - Preliminary Sputum Sputum Culture - Preliminary Mery albicans Gram Neg Bacilli Assessment and Plan Assessment: Acute on chronic hypoxemic respiratory failure, secondary to COPD exacerbation, and possible aspiration pneumonia. Acute on chronic diastolic CHF. Unresponsiveness, resolved, secondary to metabolic encephalopathy. Chronic atrial fibrillation. History of hypertension. History of previous myocardial infarction. History of obstructive sleep apnea syndrome, noncompliant with CPAP. History of alcohol abuse. History of previous tobacco use. History of CVA/TIA. Plan: Plan dated 10/29/2021. The patient appears to be doing much better. The patient's currently on 4 L nasal cannula. The patient's awake and alert. Patient plans to use his home CPAP device tonight. Last night, he used IPAP, with settings of 10/5 and 36%. He's not receiving any IV fluids. Labs, x-rays, and medications are all reviewed. He continues on GI and DVT prophylaxis, and antibiotics in the form of Zosyn. Prognosis is guarded. We will continue to follow the patient make recommendations where appropriate. Time with Patient: Less than 30
[2021-10-29 17:15] LABS: Glucose,Whole Blood 142 mg/dL (75-99)
[2021-10-29] MEDS: RIVAROXABAN 20 MG TAB PO SCH (17:39)
[2021-10-29 19:28] LABS: Glucose,Whole Blood 160 mg/dL (75-99)
[2021-10-29] MEDS: ESCITALOPRAM 20 MG TAB PO SCH (21:32)
[2021-10-29] MEDS: PRAVASTATIN SODIUM 80 MG TAB PO SCH (21:33)
[2021-10-29] MEDS: METOPROLOL SUCCINATE (ER) 50 MG TAB.ER.24H PO SCH (21:33)
[2021-10-29] MEDS: OLANZapine 2.5 MG TAB PO SCH (21:33)
[2021-10-29] MEDS: TAMSULOSIN 0.4 MG CAP.ER.24H PO SCH (21:35)
[2021-10-30 05:57] LABS: Glucose,Whole Blood 178 mg/dL (75-99)
[2021-10-30] MEDS: INSULIN ASPART (NovoLOG) 100 UNIT/ML VIAL SQ SCH ×4 (06:12→21:05)
[2021-10-30] MEDS: PANTOPRAZOLE 40 MG TABLET PO SCH (06:13)
[2021-10-30] MEDS: FERROUS SULFATE 325 MG TAB PO SCH ×2 (06:13→17:53)
[2021-10-30] MEDS: IPRATROPIUM-ALBUTEROL 3 ML NEB INHALATION SCH ×4 (07:34→19:37)
[2021-10-30] MEDS: SYMBICORT 160-4.5 MCG INHALER INHALATION SCH ×2 (07:34→19:37)
[2021-10-30 07:57] LABS: Anisocytosis Slight; Basophils % (A) 0 %; Eosinophils % (A) 0 %; HCT 32.5 % (39.0-53.0); HGB 9.5 gm/dL (13.0-17.5); Hypochromasia Marked; Lymphocytes # (A) 0.3 k/uL (1.0-4.8); Lymphocytes % (A) 3 %; MCH 28.4 pg (25.0-35.0); MCHC 29.1 g/dL (31.0-37.0); MCV 97.4 fL (80.0-100.0); Macrocytosis Slight; Monocytes # (A) 0.3 k/uL (0-1.0); Monocytes % (A) 3 %; Neutrophils # (A) 9.9 k/uL (1.3-7.7); Neutrophils % (A) 94 %; Platelet Count 172 k/uL (150-450); RBC 3.34 m/uL (4.30-5.90); RDW 18.4 % (11.5-15.5); WBC 10.5 k/uL (3.8-10.6)
[2021-10-30 08:06] LABS: African American GFR (CKD) >90 (>60 ml/min/1.73 sqM); Anion Gap 8 mmol/L; Blood Urea Nitrogen 34 mg/dL (9-20); Calcium 8.3 mg/dL (8.4-10.2); Carbon Dioxide 30 mmol/L (22-30); Chloride 99 mmol/L (98-107); Glucose 155 mg/dL (74-99); Non-African American GFR(CKD) >90 (>60 ml/min/1.73 sqM); Potassium 4.3 mmol/L (3.5-5.1); Sodium 137 mmol/L (137-145)
--- NOTE | 2021-10-30 08:23 | XR ---
EXAMINATION TYPE: XR chest 1V portable DATE OF EXAM: 10/30/2021 COMPARISON: 10/29/2021 HISTORY: Shortness of breath TECHNIQUE: Single frontal view of the chest is obtained. FINDINGS: Diffuse hyperinflation. Patchy bilateral areas of infiltrate and small effusion. Rib fractures are seen stable sizable thorax . Cardiomegaly, atherosclerotic change aorta, and postsurgical changes are noted. Underlying pulmonar y interstitial lung disease or fibrosis suspected. IMPRESSION: 1. A bilateral infiltrate and pleural effusion likely superimposed on a background COPD and pulmonary fibrosis stable.
[2021-10-30] MEDS: methylPREDNISolone SOD SUCCI 40 MG/ML 1 ML VIAL IV SCH ×3 (08:28→23:14)
[2021-10-30] MEDS: METOPROLOL SUCCINATE (ER) 100 MG TAB.ER.24H PO SCH (08:29)
[2021-10-30] MEDS: POTASSIUM CHLORIDE ER 20 MEQ TAB.ER PO SCH ×2 (08:29→21:05)
[2021-10-30] MEDS: CHOLECALCIFEROL 25 MCG (1000 IU) TABLET PO SCH (08:29)
[2021-10-30] MEDS: PREGABALIN 100 MG CAP PO SCH ×3 (08:29→21:04)
[2021-10-30] MEDS: DOCUSATE 100 MG CAP PO SCH ×2 (08:29→21:05)
[2021-10-30] MEDS: SPIRONOLACTONE 25 MG TAB PO SCH (08:29)
[2021-10-30] MEDS: PIPERACILLIN-TAZOBACTAM 3.375 GM in SODIUM CHLORIDE 0.9% 100 ML IVPB SCH ×3 (08:29→23:14)
[2021-10-30] MEDS: FUROSEMIDE 40 MG TAB PO SCH ×2 (08:29→16:18)
[2021-10-30] MEDS: HYDROcodone/APAP 7.5-325MG 1 EACH TAB PO PRN ×3 (08:37→21:04)
[2021-10-30] MEDS: ISOSORBIDE MONONITRATE ER 60 MG TAB.ER.24H PO SCH (08:37)
--- NOTE | 2021-10-30 10:03 | P.PN ---
Subjective Progress Note Date: 10/29/21 Patient is a 76-year-old male with a known history of atrial fibrillation on anticoagulation with Xarelto, chronic CHF diastolic function, COPD, history of CVA/TIA with residual right-sided weakness, chronic hypoxic respiratory failure on oxygen at 4 L via nasal cannula, pulmonary fibrosis, obstructive sleep apnea,, GERD, hearing disorder/deafness, hypertension, hyperlipidemia, history of [place], CAD status post CABG and other multiple medical problems including previous history of smoking presents to ER with complaints of worsening shortness of breath. Patient was unresponsive and was in agonal breathing when he presented to ER. He was placed on CPAP by EMS and transition to BiPAP in the ER. Patient was transferred to MICU. Chest x-ray showed COPD with bilateral infiltrate and pleural effusion. Cardiomegaly. EKG showed atrial fibrillation with rapid ventricular rate heart rate 120 Laboratory data showed WBC 17.0 hemoglobin 10.8 and platelets 301 ABG showed pH of 7.4 PCO2 55 PO2 97 Sodium 137 potassium 3.6 chloride 96 bicarbonate 31 BUN 21 creatinine 1.04 Lactic acid 3.7 Troponin 0.153 proBNP 3470 Urinalysis showed cloudy with 1+ protein and a small blood and small leukocyte esterase RBCs 9 and WBC is 8. 10/27/2021 Patient is currently in the MICU. Currently transitioning to oxygen via nasal cannula at 4 L. Patient was BiPAP overnight. Patient is being continued IV Lasix due to acute renal chronic CHF. Also on antibiotics in the form of Zosyn. Continued on methylprednisolone as well. Cultures have been negative so far. Chest x-ray today showed stable chest with persistent bilateral infiltrates. Laboratory data showed WBC 10.7, hemoglobin 9.5 and platelets 244 BUN 21 creat inine 0.68 and bicarb level is 36. Blood sugar is 175 albumin 3.0 10/28/2021 Patient is currently resting in bed. Awake alert and oriented x3. Currently on 4 L oxygen via nasal cannula. Patient was transferred to medical floor yesterday. Was using BiPAP last night. Otherwise patient is being continued IV diuretics and will be changed to by mouth Lasix from tomorrow. Patient is also on IV antibiotics and IV steroids. Chest x-ray today showed stable chest. Patient has been afebrile. Laboratory data showed WBC 11.2 hemoglobin 8.9 and platelets 210 Sodium 134 potassium 3.9 chloride 94 bicarbonate 32 BUN 28 and creatinine 0.74 and calcium 8.1. Pulmonary and cardiology is on board. 10/29/2021 Patient is currently in the select care unit. Requiring 4 L oxygen via nasal cannula as per his home regimen. Awake alert and oriented x3. No complaints of chest pain. Still having shortness of breath and patient is having exertional dyspnea. Otherwise patient is being continued IV steroids and antibiotics in the form of Zosyn. Lasix changed to by mouth 40 mg twice daily. Chest x-ray today showed correlate for possible pneumonia versus edema. There is underlying emphysema and probable scarring interstitial changes and hiatal hernia, aortic aneurysm. Laboratory data showed WBC 11.6 hemoglobin 8.9 platelets 186 BUN 31 and creatinine 0.66 bicarb is 33 sodium 138 and potassium 4.0. Patient does have low TSH and free T4 levels likely due to sick euthyroid. Current medications reviewed. Objective - Vital Signs Vital signs: Vital Signs Temp 97.4 F L 10/30/21 08:00 Pulse 91 10/30/21 08:00 Resp 19 10/30/21 08:00 BP 110/70 10/30/21 08:00 Pulse Ox 97 10/30/21 08:00 Intake & Output 10/29/21 10/30/21 10/30/21 18:59 06:59 18:59 Intake Total 1200 260 600 Output Total 825 2075 Balance 375 -1815 600 Weight 104.5 kg Intake: IV 260 0.9 kvo 160 Piperacillin-Tazobactam 3 100 .375 gm In Sodium Chloride 0.9% 100 ml @ 25 mls/hr IVPB Q8HR [facility] Rx# :[id number] Oral 1200 600 Output: Urine 825 2075 Other: Voiding Method Indwelling Catheter Indwelling Catheter # Bowel Movements 1 1 - Exam PHYSICAL EXAMINATION: Patient is lying in the bed comfortably, no acute distress, awake alert and oriented.. HEENT: Normocephalic. Neck is supple. Pupils reactive. Nostrils clear. Oral cavity is moist. Neck reveals no JVD, carotid bruits, or thyromegaly. CHEST EXAMINATION: Trachea is central. Symmetrical expansion. Bibasilar diminished sounds and scattered coarse sounds and crackles. CARDIAC: Normal S1, S2 with no gallops. No murmurs ABDOMEN: Soft. Bowel sounds normal. No organomegaly. No abdominal bruits. Extremities: Bilateral trace edema. No clubbing or cyanosis Neurologically awake, alert, oriented x3 with well-coordinated movements. No focal deficits noted Skin: No rash or skin lesions. Psychiatric: Cooperative. Nonsuicidal Musculoskeletal: No joint swelling or deformity. Normal range of motion. - Labs CBC & Chem 7: 10/30/21 07:15 10/30/21 07:15 Labs: Abnormal Lab Results - Last 24 Hours (Table) 10/29/21 10/29/21 10/29/21 Range/Units 06:22 12:12 17:13 RBC (4.30-5.90) m/uL Hgb (13.0-17.5) gm/dL Hct (39.0-53.0) % MCHC (31.0-37.0) g/dL RDW (11.5-15.5) % Neutrophils # (1.3-7.7) k/uL Lymphocytes # (1.0-4.8) k/uL BUN (9-20) mg/dL Glucose (74-99) mg/dL POC Glucose (mg/dL) 258 H 142 H (75-99) mg/dL Calcium (8.4-10.2) mg/dL TSH 0.207 L (0.465-4.680) mIU/L Free T4 0.59 L (0.78-2.19) ng/dL 10/29/21 10/30/21 10/30/21 Range/Units 19:26 05:54 07:15 RBC 3.34 L (4.30-5.90) m/uL Hgb 9.5 L (13.0-17.5) gm/dL Hct 32.5 L (39.0-53.0) % MCHC 29.1 L (31.0-37.0) g/dL RDW 18.4 H (11.5-15.5) % Neutrophils # 9.9 H (1.3-7.7) k/uL Lymphocytes # 0.3 L (1.0-4.8) k/uL BUN (9-20) mg/dL Glucose (74-99) mg/dL POC Glucose (mg/dL) 160 H 178 H (75-99) mg/dL Calcium (8.4-10.2) mg/dL TSH (0.465-4.680) mIU/L Free T4 (0.78-2.19) ng/dL 10/30/21 Range/Units 07:15 RBC (4.30-5.90) m/uL Hgb (13.0-17.5) gm/dL Hct (39.0-53.0) % MCHC (31.0-37.0) g/dL RDW (11.5-15.5) % Neutrophils # (1.3-7.7) k/uL Lymphocytes # (1.0-4.8) k/uL BUN 34 H (9-20) mg/dL Glucose 155 H (74-99) mg/dL POC Glucose (mg/dL) (75-99) mg/dL Calcium 8.3 L (8.4-10.2) mg/dL TSH (0.465-4.680) mIU/L Free T4 (0.78-2.19) ng/dL Microbiology - Last 24 Hours (Table) 10/27/21 09:10 Gram Stain - Final Sputum Sputum Culture - Final Mery albicans Klebsiella pneumoniae 10/26/21 11:43 Blood Culture - Preliminary Blood No Growth after 72 hours 10/26/21 11:43 Blood Culture - Preliminary Blood No Growth after 72 hours Assessment and Plan Assessment: Shortness of breath is multifactorial due to acute COPD and CHF exacerbation and pneumonia Acute on chronic hypoxic respiratory failure requiring BiPAP--4L NC Acute COPD exacerbation Acute on chronic CHF with diastolic dysfunction Lactic acidosis 3.7 on admission Mildly elevated troponin level likely due to demand mismatch Chronic hypoxic respiratory failure requiring 4 L oxygen via nasal cannula Chronic atrial fibrillation with rapid ventricular rate on admission History of CVA/TIA with right-sided weakness Coronary disease s/p CABG history History of MA GERD Hearing disorder/deafness Hypertension Hyperlipidemia Previous history of smoking History of AAA repair Plan: Patient will be continued on antibiotics along with Zosyn. Was given a dose of ceftriaxone azithromycin in the ER. Continue with IV steroids and IV Lasix changed to by mouth.. Transitioned to oxygen via nasal cannula at 4 L. patient will be started back on CPAP as per his home settings tonight. Pulmonary is following. Continue the home medications and follow closely. Prognosis is guarded at this time. Time with Patient: Greater than 30
--- NOTE | 2021-10-30 10:08 | P.PN ---
Subjective Progress Note Date: 10/30/21 Patient is a 76-year-old male with a known history of atrial fibrillation on anticoagulation with Xarelto, chronic CHF diastolic function, COPD, history of CVA/TIA with residual right-sided weakness, chronic hypoxic respiratory failure on oxygen at 4 L via nasal cannula, pulmonary fibrosis, obstructive sleep apnea,, GERD, hearing disorder/deafness, hypertension, hyperlipidemia, history of [place], CAD status post CABG and other multiple medical problems including previous history of smoking presents to ER with complaints of worsening shortness of breath. Patient was unresponsive and was in agonal breathing when he presented to ER. He was placed on CPAP by EMS and transition to BiPAP in the ER. Patient was transferred to MICU. Chest x-ray showed COPD with bilateral infiltrate and pleural effusion. Cardiomegaly. EKG showed atrial fibrillation with rapid ventricular rate heart rate 120 Laboratory data showed WBC 17.0 hemoglobin 10.8 and platelets 301 ABG showed pH of 7.4 PCO2 55 PO2 97 Sodium 137 potassium 3.6 chloride 96 bicarbonate 31 BUN 21 creatinine 1.04 Lactic acid 3.7 Troponin 0.153 proBNP 3470 Urinalysis showed cloudy with 1+ protein and a small blood and small leukocyte esterase RBCs 9 and WBC is 8. 10/27/2021 Patient is currently in the MICU. Currently transitioning to oxygen via nasal cannula at 4 L. Patient was BiPAP overnight. Patient is being continued IV Lasix due to acute renal chronic CHF. Also on antibiotics in the form of Zosyn. Continued on methylprednisolone as well. Cultures have been negative so far. Chest x-ray today showed stable chest with persistent bilateral infiltrates. Laboratory data showed WBC 10.7, hemoglobin 9.5 and platelets 244 BUN 21 creat inine 0.68 and bicarb level is 36. Blood sugar is 175 albumin 3.0 10/28/2021 Patient is currently resting in bed. Awake alert and oriented x3. Currently on 4 L oxygen via nasal cannula. Patient was transferred to medical floor yesterday. Was using BiPAP last night. Otherwise patient is being continued IV diuretics and will be changed to by mouth Lasix from tomorrow. Patient is also on IV antibiotics and IV steroids. Chest x-ray today showed stable chest. Patient has been afebrile. Laboratory data showed WBC 11.2 hemoglobin 8.9 and platelets 210 Sodium 134 potassium 3.9 chloride 94 bicarbonate 32 BUN 28 and creatinine 0.74 and calcium 8.1. Pulmonary and cardiology is on board. 10/29/2021 Patient is currently in the select care unit. Requiring 4 L oxygen via nasal cannula as per his home regimen. Awake alert and oriented x3. No complaints of chest pain. Still having shortness of breath and patient is having exertional dyspnea. Otherwise patient is being continued IV steroids and antibiotics in the form of Zosyn. Lasix changed to by mouth 40 mg twice daily. Chest x-ray today showed correlate for possible pneumonia versus edema. There is underlying emphysema and probable scarring interstitial changes and hiatal hernia, aortic aneurysm. Laboratory data showed WBC 11.6 hemoglobin 8.9 platelets 186 BUN 31 and creatinine 0.66 bicarb is 33 sodium 138 and potassium 4.0. Patient does have low TSH and free T4 levels likely due to sick euthyroid. 10/30/2021 Sputum cultures are growing Mery albicans and Klebsiella pneumonia. Currently maintained on antibiotics the form of Zosyn. Current medications reviewed. Objective - Vital Signs Vital signs: Vital Signs Temp 97.4 F L 10/30/21 08:00 Pulse 91 10/30/21 08:00 Resp 19 10/30/21 08:00 BP 110/70 10/30/21 08:00 Pulse Ox 97 10/30/21 08:00 Intake & Output 10/29/21 10/30/21 10/30/21 18:59 06:59 18:59 Intake Total 1200 260 600 Output Total 825 2075 Balance 375 -1815 600 Weight 104.5 kg Intake: IV 260 0.9 kvo 160 Piperacillin-Tazobactam 3 100 .375 gm In Sodium Chloride 0.9% 100 ml @ 25 mls/hr IVPB Q8HR [facility] Rx# :[id number] Oral 1200 600 Output: Urine 825 2075 Other: Voiding Method Indwelling Catheter Indwelling Catheter # Bowel Movements 1 1 - Labs CBC & Chem 7: 10/30/21 07:15 10/30/21 07:15 Labs: Abnormal Lab Results - Last 24 Hours (Table) 10/29/21 10/29/21 10/29/21 Range/Units 06:22 12:12 17:13 RBC (4.30-5.90) m/uL Hgb (13.0-17.5) gm/dL Hct (39.0-53.0) % MCHC (31.0-37.0) g/dL RDW (11.5-15.5) % Neutrophils # (1.3-7.7) k/uL Lymphocytes # (1.0-4.8) k/uL BUN (9-20) mg/dL Glucose (74-99) mg/dL POC Glucose (mg/dL) 258 H 142 H (75-99) mg/dL Calcium (8.4-10.2) mg/dL TSH 0.207 L (0.465-4.680) mIU/L Free T4 0.59 L (0.78-2.19) ng/dL 10/29/21 10/30/21 10/30/21 Range/Units 19:26 05:54 07:15 RBC 3.34 L (4.30-5.90) m/uL Hgb 9.5 L (13.0-17.5) gm/dL Hct 32.5 L (39.0-53.0) % MCHC 29.1 L (31.0-37.0) g/dL RDW 18.4 H (11.5-15.5) % Neutrophils # 9.9 H (1.3-7.7) k/uL Lymphocytes # 0.3 L (1.0-4.8) k/uL BUN (9-20) mg/dL Glucose (74-99) mg/dL POC Glucose (mg/dL) 160 H 178 H (75-99) mg/dL Calcium (8.4-10.2) mg/dL TSH (0.465-4.680) mIU/L Free T4 (0.78-2.19) ng/dL 10/30/21 Range/Units 07:15 RBC (4.30-5.90) m/uL Hgb (13.0-17.5) gm/dL Hct (39.0-53.0) % MCHC (31.0-37.0) g/dL RDW (11.5-15.5) % Neutrophils # (1.3-7.7) k/uL Lymphocytes # (1.0-4.8) k/uL BUN 34 H (9-20) mg/dL Glucose 155 H (74-99) mg/dL POC Glucose (mg/dL) (75-99) mg/dL Calcium 8.3 L (8.4-10.2) mg/dL TSH (0.465-4.680) mIU/L Free T4 (0.78-2.19) ng/dL Microbiology - Last 24 Hours (Table) 10/27/21 09:10 Gram Stain - Final Sputum Sputum Culture - Final Mery albicans Klebsiella pneumoniae 10/26/21 11:43 Blood Culture - Preliminary Blood No Growth after 72 hours 10/26/21 11:43 Blood Culture - Preliminary Blood No Growth after 72 hours
--- NOTE | 2021-10-30 10:31 | P.PN ---
Subjective Progress Note Date: 10/30/21 Principal diagnosis: Exacerbaton of COPD/CHF and pneumonia Patient is a 76-year-old male with a known history of atrial fibrillation on anticoagulation with Xarelto, chronic CHF diastolic function, COPD, history of CVA/TIA with residual right-sided weakness, pulmonary fibrosis, obstructive sleep apnea, GERD, hearing disorder/deafness, hypertension, hyperlipidemia, history of [place], CAD status post CABG and other multiple medical problems including previous history of smoking presented to the on 10/26/21 with complaints of worsening shortness of breath. Patient was unresponsive and was in agonal breathing and was placed on CPAP by EMS and transition to BiPAP in the ER. Patient was transferred to MICU. Chest x-ray showed COPD with bilateral infiltrate and pleural effusion. Cardiomegaly. EKG showed atrial fibrillation with rapid ventricular rate heart rate 120. 10/27/2021 Patient was in the ICU. Oxygen via nasal cannula at 4 L. Patient wore BiPAP overnight. Patient continued on IV Lasix due to acute renal chronic CHF. Also on antibiotics in the form of Zosyn and Methylprednisolone Cultures have been negative so far. Chest x-ray today showed stable chest with persistent bilateral infiltrates. Transferred to medical floor 10/28/2021 Patient stable on 4 L oxygen via nasal cannula and wears BiPAP at night. IV diuretics, antibiotics, and steroids continued. Chest x-ray stable. 10/29/2021 Patient resting in bed comfortably. No actue distress noted. Patient c/o dyspnea on exertion. Stable on 4L NC and BiPAP overnight. Objective - Vital Signs Vital signs: Vital Signs Temp 97.4 F L 10/30/21 08:00 Pulse 91 10/30/21 08:00 Resp 19 10/30/21 08:00 BP 110/70 10/30/21 08:00 Pulse Ox 97 10/30/21 08:00 Intake & Output 10/29/21 10/30/21 10/30/21 18:59 06:59 18:59 Intake Total 1200 260 600 Output Total 825 2075 Balance 375 -1815 600 Weight 104.5 kg Intake: IV 260 0.9 kvo 160 Piperacillin-Tazobactam 3 100 .375 gm In Sodium Chloride 0.9% 100 ml @ 25 mls/hr IVPB Q8HR [facility] Rx# :[id number] Oral 1200 600 Output: Urine 825 2075 Other: Voiding Method Indwelling Catheter Indwelling Catheter # Bowel Movements 1 1 - Exam General: Patient awake alert and oriented x 3. No acute distress. HEENT: Head is atraumatic, normocephalic Neck is supple. Sclerae are clear. Pupils equal, round and reactive to light bilaterally. CV: Heart regular in rate and rhythm positive S1 and S2. No clicks, rubs or murmurs. No JVD. Peripheral pulses equal. 2/4 Lungs: Scattered bilateral rhonchi and ecpiratory wheezes. No rales or rhonchi. Respirations even and nonlabored. No intercostal retractions.No conversational dyspnea. Abdomen/GI: Soft. Bowel sounds present in all 4 quadrants. Bowel sounds normoactive. No abdominal tenderness. : Cain draining clear yellow urine Musculoskeletal/ Extremities: Generalized weakness. No tenderness on muscular exam. No ecchymosis. +1 pitting edema to b/l LE Vascular: Radial pulses equal. 2/4. Skin: No rash. Neurologic:No focal deficits. Psychiatric: Appropriate mood and affect. - Labs CBC & Chem 7: 10/30/21 07:15 10/30/21 07:15 Labs: Abnormal Lab Results - Last 24 Hours (Table) 10/29/21 10/29/21 10/29/21 Range/Units 06:22 12:12 17:13 RBC (4.30-5.90) m/uL Hgb (13.0-17.5) gm/dL Hct (39.0-53.0) % MCHC (31.0-37.0) g/dL RDW (11.5-15.5) % Neutrophils # (1.3-7.7) k/uL Lymphocytes # (1.0-4.8) k/uL BUN (9-20) mg/dL Glucose (74-99) mg/dL POC Glucose (mg/dL) 258 H 142 H (75-99) mg/dL Calcium (8.4-10.2) mg/dL TSH 0.207 L (0.465-4.680) mIU/L Free T4 0.59 L (0.78-2.19) ng/dL 10/29/21 10/30/21 10/30/21 Range/Units 19:26 05:54 07:15 RBC 3.34 L (4.30-5.90) m/uL Hgb 9.5 L (13.0-17.5) gm/dL Hct 32.5 L (39.0-53.0) % MCHC 29.1 L (31.0-37.0) g/dL RDW 18.4 H (11.5-15.5) % Neutrophils # 9.9 H (1.3-7.7) k/uL Lymphocytes # 0.3 L (1.0-4.8) k/uL BUN (9-20) mg/dL Glucose (74-99) mg/dL POC Glucose (mg/dL) 160 H 178 H (75-99) mg/dL Calcium (8.4-10.2) mg/dL TSH (0.465-4.680) mIU/L Free T4 (0.78-2.19) ng/dL 10/30/21 Range/Units 07:15 RBC (4.30-5.90) m/uL Hgb (13.0-17.5) gm/dL Hct (39.0-53.0) % MCHC (31.0-37.0) g/dL RDW (11.5-15.5) % Neutrophils # (1.3-7.7) k/uL Lymphocytes # (1.0-4.8) k/uL BUN 34 H (9-20) mg/dL Glucose 155 H (74-99) mg/dL POC Glucose (mg/dL) (75-99) mg/dL Calcium 8.3 L (8.4-10.2) mg/dL TSH (0.465-4.680) mIU/L Free T4 (0.78-2.19) ng/dL Microbiology - Last 24 Hours (Table) 10/27/21 09:10 Gram Stain - Final Sputum Sputum Culture - Final Mery albicans Klebsiella pneumoniae 10/26/21 11:43 Blood Culture - Preliminary Blood No Growth after 72 hours 10/26/21 11:43 Blood Culture - Preliminary Blood No Growth after 72 hours Assessment and Plan Plan: Patiient stated he is concerned that they have not been getting him out of bed. Patient informed that his breathing may not tolerate much activity. He stated he is concerned that he will lose whatever progress he made in rehab if he does not try. Spoke with RN, PT/OT consults placed. The patient also stated he did not sleep well and had a couple anxiety attacks yesterday. One episode was when he got frustrated trying to use the bedpan. The other episode occurred when he was short of breath. He attempted to put on his Cpap and states it will take him some time to get used to the tight mask. Medications reviewed. Patient currently on Lexapro and Zyprexa. It was also noted that he has PRN Xanax and Restoril ordered. Patient encouraged to ask for these medications when he needs them. The patient's goal is still to return to [facility] for rehab when medically stable. Information/phone number provided for outpatient Palliative Care for when he returns home from rehab. Noem[facility] Palliative Care [employer] [phone] Email: [email or web address] Time with Patient: Less than 30
[2021-10-30] MEDS: ALPRAZolam 0.25 MG TAB PO PRN ×2 (10:39→23:14)
--- NOTE | 2021-10-30 11:40 | P.PN ---
Subjective Progress Note Date: 10/30/21 Principal diagnosis: COPD exacerbation. Reevaluated today on 10/27/2021, patient remains in the ICU, he is now on nasal cannula, he is on 4 L with O2 sats of 96%. At night he was on BiPAP at IPAP of 10 and EPAP of 5 and FiO2 of 36%. Patient is being treated for pneumonia, and p ossibly acute on chronic diastolic congestive heart failure. He has been on diuretics, has been receiving Zosyn for presumptive aspiration pneumonia. Clinically the patient is feeling better, breathing a lot easier, he does have history of alcohol abuse, and he is on [facility] protocol for potential alcohol withdrawal.CBC is relatively normal left was abnormal renal profile is normal. Chest x-ray continues to show bilateral infiltrates/interstitial edema is also possible Reevaluated today on 10/28/2021, patient is now on the regular medical floor, seems to be doing better, he is on 4 L nasal cannula, O2 sats is 92%. Patient is still receiving treatment for acute on chronic diastolic congestive heart failure, and possibly underlying pneumonia. Patient may have developed aspiration pneumonia based on the clinical history. And he is still on Zosyn. Clinically improving. Labs are unremarkable including a relatively normal CBC except hemoglobin of 8.9 electrolytes are normal renal profile is normal. Patient clearly stated to me that he is feeling better since admission. Chest x-ray continues to show bilateral interstitial infiltrates/edema at the bases difficult to tell how much of it is really interstitial edema or pneumonia. Progress note dated 10/29/2021. 76-year-old male who was in the intensive care unit, but is currently seen on the general medical floor, room 368. Currently, he's on 4 L nasal cannula. The patient will use his home CPAP tonight. Last night, use a hospital BiPAP system, with settings of 10 and 5 and 36%. He's feeling much improved. His shortness of breath is much improved. He is currently not receiving any IV fluids. I have includes a white count 9.6, hemoglobin 8.9, hematocrit 30.3, and platelet count 186,000. Sodium 138, potassium 4, chlorides 99, CO2 33, BUN 31, and creatinine 0.66. Chest x-ray shows some patchy densities in the bilateral lower lobes, with blunting of the costophrenic angles. Progress note dated 10/30/2021. A 76-year-old male, again seen in room 368. The patient is doing relatively well. He remains on 4 L nasal cannula. He did use his home CPAP device last night. Prior to that, he was using the [facility]AP machine. The patient does feel improved. His breathing is better. Currently laboratory data includes a white count of 10.5, hemoglobin 9.5, hematocrit 32.5, and platelet count 172,000. Sodium 137, potassium 4.3, chlorides 99, CO2 30, BUN 34, and creatinine 0.7. Chest x-ray shows bilateral pleural effusions, which are small, with bilateral infiltrates, which are stable. Objective - Vital Signs Vital signs: Vital Signs Temp 97.4 F L 10/30/21 08:00 Pulse 90 10/30/21 11:30 Resp 19 10/30/21 08:00 BP 110/70 10/30/21 08:00 Pulse Ox 97 10/30/21 08:00 Intake & Output 10/29/21 10/30/21 10/30/21 18:59 06:59 18:59 Intake Total 1200 260 600 Output Total 825 2075 Balance 375 -1815 600 Weight 104.5 kg Intake: IV 260 0.9 kvo 160 Piperacillin-Tazobactam 3 100 .375 gm In Sodium Chloride 0.9% 100 ml @ 25 mls/hr IVPB Q8HR [facility] Rx# :[id number] Oral 1200 600 Output: Urine 825 2075 Other: Voiding Method Indwelling Catheter Indwelling Catheter Indwelling Catheter # Bowel Movements 1 1 - Exam No acute distress, oriented 3. Resting comfortably in bed. Currently on 4 L nasal cannula. No conversational dyspnea or use of accessory muscles. HEENT examination is grossly unremarkable. Neck supple. Full range of motion. No adenopathy thyromegaly or neck vein distention. Cardiovascular examination reveals regular rhythm rate. S1-S2 normal. No S3 or S4. No discernible murmur noted. Heart rate 90 bpm. Lungs reveal scattered bilateral rhonchi. No wheezes. No crackles. Breath sounds equal bilaterally. Saturations are 97% on 4 L. Abdomen soft bowel sounds are heard. No masses or tenderness. Extremities are intact. No cyanosis clubbing or edema. Skin is without rash or lesion. Neurologic examination is brief but nonfocal. - Labs CBC & Chem 7: 10/30/21 07:15 10/30/21 07:15 Labs: Abnormal Lab Results - Last 24 Hours (Table) 10/29/21 10/29/21 10/29/21 Range/Units 12:12 17:13 19:26 RBC (4.30-5.90) m/uL Hgb (13.0-17.5) gm/dL Hct (39.0-53.0) % MCHC (31.0-37.0) g/dL RDW (11.5-15.5) % Neutrophils # (1.3-7.7) k/uL Lymphocytes # (1.0-4.8) k/uL BUN (9-20) mg/dL Glucose (74-99) mg/dL POC Glucose (mg/dL) 258 H 142 H 160 H (75-99) mg/dL Calcium (8.4-10.2) mg/dL 10/30/21 10/30/21 10/30/21 Range/Units 05:54 07:15 07:15 RBC 3.34 L (4.30-5.90) m/uL Hgb 9.5 L (13.0-17.5) gm/dL Hct 32.5 L (39.0-53.0) % MCHC 29.1 L (31.0-37.0) g/dL RDW 18.4 H (11.5-15.5) % Neutrophils # 9.9 H (1.3-7.7) k/uL Lymphocytes # 0.3 L (1.0-4.8) k/uL BUN 34 H (9-20) mg/dL Glucose 155 H (74-99) mg/dL POC Glucose (mg/dL) 178 H (75-99) mg/dL Calcium 8.3 L (8.4-10.2) mg/dL Microbiology - Last 24 Hours (Table) 10/27/21 09:10 Gram Stain - Final Sputum Sputum Culture - Final Mery albicans Klebsiella pneumoniae 10/26/21 11:43 Blood Culture - Preliminary Blood No Growth after 72 hours 10/26/21 11:43 Blood Culture - Preliminary Blood No Growth after 72 hours Assessment and Plan Assessment: Acute on chronic hypoxemic respiratory failure, secondary to COPD exacerbation, and possible aspiration pneumonia. Klebsiella pneumoniae pneumonia. Acute on chronic diastolic CHF. Unresponsiveness, resolved, secondary to metabolic encephalopathy. Chronic atrial fibrillation. History of hypertension. History of previous myocardial infarction. History of obstructive sleep apnea syndrome, noncompliant with CPAP. History of alcohol abuse. History of previous tobacco use. History of CVA/TIA. Plan: Plan dated 10/29/2021. The patient appears to be doing much better. The patient's currently on 4 L nasal cannula. The patient's awake and alert. Patient plans to use his home CPAP device tonight. Last night, he used IPAP, with settings of 10/5 and 36%. He's not receiving any IV fluids. Labs, x-rays, and medications are all reviewed. He continues on GI and DVT prophylaxis, and antibiotics in the form of Zosyn. Prognosis is guarded. We will continue to follow the patient make recommendations where appropriate. Plan dated 10/30/2021. The patient appears to be doing better. He remains on 4 L. He does use his home CPAP device last night. He used to for about 5 hours or so. He seemed to tolerate it pretty well. Labs, x-rays, and medications are reviewed. The patient appears to be doing better. His breathing is improved. He remains on Zosyn. We will continue to follow the patient make recommendations were appropriate. He continues on GI and DVT prophylaxis. Sputum did show evidence of Klebsiella pneumoniae. The Klebsiella is sensitive to Zosyn. Time with Patient: Less than 30
[2021-10-30 12:03] LABS: Glucose,Whole Blood 165 mg/dL (75-99)
--- NOTE | 2021-10-30 13:18 | CDI ---
Documentation Clarification Form Date: 10/30/2021 12:59:54 PM From: Abida Jackson CCS, CCDS Admit Date: 10/26/2021 11:17:00 AM Patient Name: Tony Kovacs Visit Number: [id number] Discharge Date: ATTENTION: The Clinical Documentation Specialists (CDI) and [facility] Coding Staff appreciate your assistance in clarifying documentation. Please respond to the clarification below the line at the bottom and electronically sign. The CDI & [facility] Coding staff will review the response and follow-up if needed. Please note: Queries are made part of the Legal Health Record. If you have any questions, please contact the author of this message via ITS. Dr. Kerwin Turner: Sepsis is documented in the 10/26 ED Note History and in the 10/26 Pulmonary Consult Impression: Acute on Chronic Hypoxic Respiratory Failure, Acute Exacerbation of COPD, Suspect Aspiration Pneumonia, possible Sepsis, Doubt Septic Shock. Additional clarification regarding the documented Sepsis is requested. History/Risk Factors per the 10/26 H/P: Atrial Fibrillatiion on Xarelto, Chronic CHF Diastolic Function, COPD, History of CVA with residual right sided weakness, Chronic Hypoxic Respiratory Failure on Home O2 4Lnc, Pulmonary Fibrosis, SANDEE, GERD, Hard of Hearing, Hypertension, Hyperlipidemia, CAD status post CABG and former smoker. Clinical Indicators: Presented to the ED on 10/26 via EMS with SOB, Altered mental status. Concern for infection & SIRS criteria is met, will not benefit from fluid boluses secondary to heart failure, acute on chronic, only 250 mL given. Admit with 10/26 VS: T 98.9, P 145, R 22 (sob, accessory use), BP 75/56, 97/65; PO 88 CPAP - 96 BiPAP, BMI: 30.4 10/26 LAB: WBC 17.0, RBC 3.81, Hgb 10.8, Hct 36.2, Neutrophils 15.6, Lymphocytes 0.9; Chloride 96, CO2 31, BUN 21, Glucose 211, Troponin 0.153, total protein 5.9, Albumin 3.4, Procalcitonin 2.66 10/26 Blood Gases: ABG pCO2 55, HCO3 34, Total CO2 36, O2 Sat 98.3 10/26 UA: Cloudy, 1+ protein, Small Blood, Small Esterase, RBC 9, WBC 8, Hyaline Casts 52 10/26 EKG: Atrial Fibrillation with RVR, R 120. Treatment 10/26: Central Line placed, Blood Glucose monitoring, Telemetry, Insulin Sliding Scale, Blood Cultures, O 2Lnc, IV Norephinephrine, INH Duoneb, IV SoluMedrol, IV Na Cl 250 mls @ 999 mls/hr q16M, IV Azithromycin 500 mg 250 mls @ 250 mls/hr x1, IV Rocephin 50 mls @ 100 mls/hr x1, IV Lasix 40 mg q12H, IV Zosyn/Tazobactam 100 mls @ 25 mls/hr q8H, INH Symbicort Consults: Pulmonary/Critical Care, Cardiology, Infectious Disease In your professional opinion, please clarify if these findings signify one of the following conditions: [ x ] Sepsis POA, please specify organism: [ ] Sepsis, Not POA, please specify organism: [ ] Sepsis ruled out [ ] Severe Sepsis with organ failure [ ] Septic Shock [ ] Other, please specify [ ] Unable to determine (Template Last Reviewed: August 2020) ELIU
--- NOTE | 2021-10-30 14:07 | P.PN ---
Subjective Progress Note Date: 10/30/21 HISTORY OF PRESENT ILLNESS: Patient examined this morning at the bedside. Patient denies chest pain or pressure. He denies shortness of breath. Telemetry reveals atrial fibrillation with heart rates in the 90s. Vital signs are stable. 10/30/2021 patient examined this morning at the bedside. Patient denies chest pain or pressure. He denies shortness of breath. Telemetry reveals atrial fibrillation with controlled ventricular rates. Vital signs are stable. PHYSICAL EXAM: VITAL SIGNS: Reviewed. GENERAL: Well-developed in no acute distress. NECK: Supple. No JVD or thyromegaly LUNGS: Respirations even and unlabored. Lungs diminished to auscultation bilaterally. HEART: Irregular rate and rhythm. S1 and S2 heard. EXTREMITIES: Normal range of motion. No clubbing or cyanosis. Peripheral pulses intact. No lower extremity edema ASSESSMENT: Shortness of breath Pneumonia Acute COPD exacerbation Chronic hypoxic respiratory failure Permanent atrial fibrillation Coronary artery disease with previous CABG History of CVA/TIA Hypertension Hyperlipidemia PLAN: continue current cardiac medications Continue telemetry monitoring No further inpatient recommendations from a cardiac standpoint We will sign off. Please reconsult if needed. Nurse practitioner note has been reviewed by physician. Signing provider agrees with the documented findings, assessment, and plan of care. Objective - Vital Signs Vital signs: Vital Signs Temp 97.5 F L 10/30/21 11:47 Pulse 91 10/30/21 13:50 Resp 19 10/30/21 13:50 BP 99/68 10/30/21 11:47 Pulse Ox 94 L 10/30/21 11:47 Intake & Output 10/29/21 10/30/21 10/30/21 18:59 06:59 18:59 Intake Total 1200 260 600 Output Total 825 2075 Balance 375 -1815 600 Weight 104.5 kg Intake: IV 260 0.9 kvo 160 Piperacillin-Tazobactam 3 100 .375 gm In Sodium Chloride 0.9% 100 ml @ 25 mls/hr IVPB Q8HR [facility] Rx# :[id number] Oral 1200 600 Output: Urine 825 2075 Other: Voiding Method Indwelling Catheter Indwelling Catheter Indwelling Catheter # Bowel Movements 1 1 - Labs CBC & Chem 7: 10/30/21 07:15 10/30/21 07:15 Labs: Abnormal Lab Results - Last 24 Hours (Table) 10/29/21 10/29/21 10/30/21 Range/Units 17:13 19:26 05:54 RBC (4.30-5.90) m/uL Hgb (13.0-17.5) gm/dL Hct (39.0-53.0) % MCHC (31.0-37.0) g/dL RDW (11.5-15.5) % Neutrophils # (1.3-7.7) k/uL Lymphocytes # (1.0-4.8) k/uL BUN (9-20) mg/dL Glucose (74-99) mg/dL POC Glucose (mg/dL) 142 H 160 H 178 H (75-99) mg/dL Calcium (8.4-10.2) mg/dL 10/30/21 10/30/21 10/30/21 Range/Units 07:15 07:15 12:01 RBC 3.34 L (4.30-5.90) m/uL Hgb 9.5 L (13.0-17.5) gm/dL Hct 32.5 L (39.0-53.0) % MCHC 29.1 L (31.0-37.0) g/dL RDW 18.4 H (11.5-15.5) % Neutrophils # 9.9 H (1.3-7.7) k/uL Lymphocytes # 0.3 L (1.0-4.8) k/uL BUN 34 H (9-20) mg/dL Glucose 155 H (74-99) mg/dL POC Glucose (mg/dL) 165 H (75-99) mg/dL Calcium 8.3 L (8.4-10.2) mg/dL Microbiology - Last 24 Hours (Table) 10/27/21 09:10 Gram Stain - Final Sputum Sputum Culture - Final Mery albicans Klebsiella pneumoniae 10/26/21 11:43 Blood Culture - Preliminary Blood No Growth after 72 hours 10/26/21 11:43 Blood Culture - Preliminary Blood No Growth after 72 hours
[2021-10-30 16:43] LABS: Glucose,Whole Blood 191 mg/dL (75-99)
[2021-10-30] MEDS: RIVAROXABAN 20 MG TAB PO SCH (17:53)
[2021-10-30 21:01] LABS: Glucose,Whole Blood 220 mg/dL (75-99)
[2021-10-30] MEDS: TAMSULOSIN 0.4 MG CAP.ER.24H PO SCH (21:04)
[2021-10-30] MEDS: PRAVASTATIN SODIUM 80 MG TAB PO SCH (21:04)
[2021-10-30] MEDS: METOPROLOL SUCCINATE (ER) 50 MG TAB.ER.24H PO SCH (21:04)
[2021-10-30] MEDS: OLANZapine 2.5 MG TAB PO SCH (21:05)
[2021-10-30] MEDS: ESCITALOPRAM 20 MG TAB PO SCH (21:05)
[2021-10-31 06:26] LABS: Glucose,Whole Blood 170 mg/dL (75-99)
[2021-10-31] MEDS: PANTOPRAZOLE 40 MG TABLET PO SCH (06:26)
[2021-10-31] MEDS: INSULIN ASPART (NovoLOG) 100 UNIT/ML VIAL SQ SCH ×4 (06:26→21:28)
[2021-10-31] MEDS: FERROUS SULFATE 325 MG TAB PO SCH ×2 (06:26→16:21)
[2021-10-31] MEDS: IPRATROPIUM-ALBUTEROL 3 ML NEB INHALATION SCH ×4 (07:29→19:47)
[2021-10-31] MEDS: SYMBICORT 160-4.5 MCG INHALER INHALATION SCH ×2 (07:29→19:47)
[2021-10-31] MEDS: POTASSIUM CHLORIDE ER 20 MEQ TAB.ER PO SCH ×2 (08:04→21:28)
[2021-10-31 08:05] LABS: Anisocytosis Slight; Basophils % (A) 0 %; Eosinophils % (A) 0 %; HCT 33.4 % (39.0-53.0); HGB 9.7 gm/dL (13.0-17.5); Hypochromasia Marked; Lymphocytes # (A) 0.4 k/uL (1.0-4.8); Lymphocytes % (A) 4 %; MCH 28.1 pg (25.0-35.0); MCHC 29.1 g/dL (31.0-37.0); MCV 96.8 fL (80.0-100.0); Macrocytosis Slight; Mean Platelet Volume 8.8; Monocytes # (A) 0.3 k/uL (0-1.0); Monocytes % (A) 3 %; Neutrophils # (A) 10.3 k/uL (1.3-7.7); Neutrophils % (A) 93 %; Platelet Count 171 k/uL (150-450); RBC 3.45 m/uL (4.30-5.90); RDW 18.2 % (11.5-15.5)
[2021-10-31] MEDS: METOPROLOL SUCCINATE (ER) 100 MG TAB.ER.24H PO SCH (08:05)
[2021-10-31] MEDS: DOCUSATE 100 MG CAP PO SCH ×2 (08:05→21:28)
[2021-10-31] MEDS: SPIRONOLACTONE 25 MG TAB PO SCH ×2 (08:05→08:15)
[2021-10-31] MEDS: PREGABALIN 100 MG CAP PO SCH ×3 (08:05→21:28)
[2021-10-31] MEDS: FUROSEMIDE 40 MG TAB PO SCH ×2 (08:05→16:21)
[2021-10-31] MEDS: PIPERACILLIN-TAZOBACTAM 3.375 GM in SODIUM CHLORIDE 0.9% 100 ML IVPB SCH ×2 (08:06→16:23)
[2021-10-31] MEDS: CHOLECALCIFEROL 25 MCG (1000 IU) TABLET PO SCH (08:06)
[2021-10-31] MEDS: methylPREDNISolone SOD SUCCI 40 MG/ML 1 ML VIAL IV SCH (08:06)
[2021-10-31] MEDS: ISOSORBIDE MONONITRATE ER 60 MG TAB.ER.24H PO SCH (08:06)
[2021-10-31 08:48] LABS: African American GFR (CKD) >90 (>60 ml/min/1.73 sqM); Anion Gap 6 mmol/L; Blood Urea Nitrogen 36 mg/dL (9-20); Calcium 8.6 mg/dL (8.4-10.2); Carbon Dioxide 33 mmol/L (22-30); Chloride 98 mmol/L (98-107); Glucose 152 mg/dL (74-99); Non-African American GFR(CKD) 89 (>60 ml/min/1.73 sqM); Potassium 4.3 mmol/L (3.5-5.1); Sodium 137 mmol/L (137-145)
[2021-10-31] MEDS: HYDROcodone/APAP 7.5-325MG 1 EACH TAB PO PRN ×2 (09:57→16:22)
--- NOTE | 2021-10-31 10:53 | P.PN ---
Subjective Progress Note Date: 10/31/21 Principal diagnosis: COPD exacerbation. Reevaluated today on 10/27/2021, patient remains in the ICU, he is now on nasal cannula, he is on 4 L with O2 sats of 96%. At night he was on BiPAP at IPAP of 10 and EPAP of 5 and FiO2 of 36%. Patient is being treated for pneumonia, and p ossibly acute on chronic diastolic congestive heart failure. He has been on diuretics, has been receiving Zosyn for presumptive aspiration pneumonia. Clinically the patient is feeling better, breathing a lot easier, he does have history of alcohol abuse, and he is on [facility] protocol for potential alcohol withdrawal.CBC is relatively normal left was abnormal renal profile is normal. Chest x-ray continues to show bilateral infiltrates/interstitial edema is also possible Reevaluated today on 10/28/2021, patient is now on the regular medical floor, seems to be doing better, he is on 4 L nasal cannula, O2 sats is 92%. Patient is still receiving treatment for acute on chronic diastolic congestive heart failure, and possibly underlying pneumonia. Patient may have developed aspiration pneumonia based on the clinical history. And he is still on Zosyn. Clinically improving. Labs are unremarkable including a relatively normal CBC except hemoglobin of 8.9 electrolytes are normal renal profile is normal. Patient clearly stated to me that he is feeling better since admission. Chest x-ray continues to show bilateral interstitial infiltrates/edema at the bases difficult to tell how much of it is really interstitial edema or pneumonia. Progress note dated 10/29/2021. 76-year-old male who was in the intensive care unit, but is currently seen on the general medical floor, room 368. Currently, he's on 4 L nasal cannula. The patient will use his home CPAP tonight. Last night, use a hospital BiPAP system, with settings of 10 and 5 and 36%. He's feeling much improved. His shortness of breath is much improved. He is currently not receiving any IV fluids. I have includes a white count 9.6, hemoglobin 8.9, hematocrit 30.3, and platelet count 186,000. Sodium 138, potassium 4, chlorides 99, CO2 33, BUN 31, and creatinine 0.66. Chest x-ray shows some patchy densities in the bilateral lower lobes, with blunting of the costophrenic angles. Progress note dated 10/30/2021. A 76-year-old male, again seen in room 368. The patient is doing relatively well. He remains on 4 L nasal cannula. He did use his home CPAP device last night. Prior to that, he was using the [facility] BiPAP machine. The patient does feel improved. His breathing is better. Currently laboratory data includes a white count of 10.5, hemoglobin 9.5, hematocrit 32.5, and platelet count 172,000. Sodium 137, potassium 4.3, chlorides 99, CO2 30, BUN 34, and creatinine 0.7. Chest x-ray shows bilateral pleural effusions, which are small, with bilateral infiltrates, which are stable. Progress note dated 10/31/2021. 76-year-old male, again seen in room 368. The patient's doing relatively well. He did use his CPAP device last night for about 4-5 hours. At 2 nights in a row. The patient is feeling improved. Lab data today includes a white count of 11, hemoglobin 9.7, hematocrit 33.4, and platelet count 171,000. Sodium 137, potassium 4.3, chlorides 98, CO2 33, BUN 36, and creatinine 0.76. Sputum did reveal evidence of Klebsiella pneumoniae. Chest x-ray shows bilateral infiltrates, and pleural effusions, and also changes of COPD, and pulmonary fibrosis. Objective - Vital Signs Vital signs: Vital Signs Temp 98.2 F 10/31/21 04:00 Pulse 100 10/31/21 07:39 Resp 20 10/31/21 04:00 BP 121/77 10/31/21 04:00 Pulse Ox 96 10/31/21 07:33 Intake & Output 10/30/21 10/31/21 10/31/21 18:59 06:59 18:59 Intake Total 1200 440 120 Output Total 1200 1000 Balance 0 -560 120 Intake: Intake, IV Titration 200 Amount Piperacillin-Tazobactam 3 200 .375 gm In Sodium Chloride 0.9% 100 ml @ 25 mls/hr IVPB Q8HR [facility] Rx# :[id number] Oral 1200 240 120 Output: Urine 1200 1000 Other: Voiding Method Indwelling Catheter Indwelling Catheter - Exam No acute distress, oriented 3. Resting comfortably in bed. Currently on 4 L nasal cannula. No conversational dyspnea or use of accessory muscles. HEENT examination is grossly unremarkable. Neck supple. Full range of motion. No adenopathy thyromegaly or neck vein distention. Cardiovascular examination reveals regular rhythm rate. S1-S2 normal. No S3 or S4. No discernible murmur noted. Heart rate 90 bpm. Lungs reveal scattered bilateral rhonchi. No wheezes. No crackles. Breath sounds equal bilaterally. Saturations are 96% on 4 L. Abdomen soft bowel sounds are heard. No masses or tenderness. Extremities are intact. No cyanosis clubbing or edema. Skin is without rash or lesion. Neurologic examination is brief but nonfocal. - Labs CBC & Chem 7: 10/31/21 07:06 10/31/21 07:06 Labs: Abnormal Lab Results - Last 24 Hours (Table) 10/30/21 10/30/21 10/30/21 Range/Units 12:01 16:25 20:57 WBC (3.8-10.6) k/uL RBC (4.30-5.90) m/uL Hgb (13.0-17.5) gm/dL Hct (39.0-53.0) % MCHC (31.0-37.0) g/dL RDW (11.5-15.5) % Neutrophils # (1.3-7.7) k/uL Lymphocytes # (1.0-4.8) k/uL Carbon Dioxide (22-30) mmol/L BUN (9-20) mg/dL Glucose (74-99) mg/dL POC Glucose (mg/dL) 165 H 191 H 220 H (75-99) mg/dL 10/31/21 10/31/21 10/31/21 Range/Units 06:21 07:06 07:06 WBC 11.0 H (3.8-10.6) k/uL RBC 3.45 L (4.30-5.90) m/uL Hgb 9.7 L (13.0-17.5) gm/dL Hct 33.4 L (39.0-53.0) % MCHC 29.1 L (31.0-37.0) g/dL RDW 18.2 H (11.5-15.5) % Neutrophils # 10.3 H (1.3-7.7) k/uL Lymphocytes # 0.4 L (1.0-4.8) k/uL Carbon Dioxide 33 H (22-30) mmol/L BUN 36 H (9-20) mg/dL Glucose 152 H (74-99) mg/dL POC Glucose (mg/dL) 170 H (75-99) mg/dL Microbiology - Last 24 Hours (Table) 10/26/21 11:43 Blood Culture - Preliminary Blood No Growth after 96 hours 10/26/21 11:43 Blood Culture - Preliminary Blood No Growth after 96 hours 10/27/21 09:10 Gram Stain - Final Sputum Sputum Culture - Final Mery albicans Klebsiella pneumoniae Assessment and Plan Assessment: Acute on chronic hypoxemic respiratory failure, secondary to COPD exacerbation, and possible aspiration pneumonia. Klebsiella pneumoniae pneumonia. Acute on chronic diastolic CHF. Unresponsiveness, resolved, secondary to metabolic encephalopathy. Chronic atrial fibrillation. History of hypertension. History of previous myocardial infarction. History of obstructive sleep apnea syndrome, noncompliant with CPAP. History of alcohol abuse. History of previous tobacco use. History of CVA/TIA. Plan: Plan dated 10/29/2021. The patient appears to be doing much better. The patient's currently on 4 L nasal cannula. The patient's awake and alert. Patient plans to use his home CPAP device tonight. Last night, he used IPAP, with settings of 10/5 and 36%. He's not receiving any IV fluids. Labs, x-rays, and medications are all reviewed. He continues on GI and DVT prophylaxis, and antibiotics in the form of Zosyn. Prognosis is guarded. We will continue to follow the patient make recommendations where appropriate. Plan dated 10/30/2021. The patient appears to be doing better. He remains on 4 L. He does use his home CPAP device last night. He used to for about 5 hours or so. He seemed to tolerate it pretty well. Labs, x-rays, and medications are reviewed. The patient appears to be doing better. His breathing is improved. He remains on Zosyn. We will continue to follow the patient make recommendations were appropriate. He continues on GI and DVT prophylaxis. Sputum did show evidence of Klebsiella pneumoniae. The Klebsiella is sensitive to Zosyn. Plan dated 10/31/2021. The patient seems to be doing better. He's currently on 4 L. His sputum from the was positive for Klebsiella pneumoniae. He remains on Zosyn. He continues on GI prophylaxis. The patient is using his home CPAP device at nighttime. He used it for about 4-5 hours last night. We will continue to follow the patient and make recommendations where appropriate. His labs, x- rays, and medications are all reviewed. Time with Patient: Less than 30
[2021-10-31 11:28] LABS: Glucose,Whole Blood 255 mg/dL (75-99)
--- NOTE | 2021-10-31 12:43 | P.PN ---
Subjective Progress Note Date: 10/31/21 Principal diagnosis: pneumonia, exacerbation of CHF and COPD Patient is a 76-year-old male with a known history of atrial fibrillation on anticoagulation with Xarelto, chronic CHF diastolic function, COPD, history of CVA/TIA with residual right-sided weakness, pulmonary fibrosis, obstructive sleep apnea, GERD, hearing disorder/deafness, hypertension, hyperlipidemia, history of [place], CAD status post CABG and other multiple medical problems including previous history of smoking presented to the on 10/26/21 with complaints of worsening shortness of breath. Patient was unresponsive and was in agonal breathing and was placed on CPAP by EMS and transition to BiPAP in the ER. Patient was transferred to MICU. Chest x-ray showed COPD with bilateral infiltrate and pleural effusion. Cardiomegaly. EKG showed atrial fibrillation with rapid ventricular rate heart rate 120. 10/27/2021 Patient was in the ICU. Oxygen via nasal cannula at 4 L. Patient wore BiPAP overnight. Patient continued on IV Lasix due to acute renal chronic CHF. Also on antibiotics in the form of Zosyn and Methylprednisolone Cultures have been negative so far. Chest x-ray today showed stable chest with persistent bilateral infiltrates. Transferred to medical floor 10/28/2021 Patient stable on 4 L oxygen via nasal cannula and wears BiPAP at night. IV diuretics, antibiotics, and steroids continued. Chest x-ray stable. 10/29/2021 Patient resting in bed comfortably. No actue distress noted. Patient c/o dyspnea on exertion. Stable on 4L NC and BiPAP overnight. Sputum did show evidence of Klebsiella pneumoniae. The Klebsiella is sensitive to Zosyn. 10/30/2021 The patient is doing relatively well. He remains on 4 L nasal cannula. He did use his home CPAP device last night. Prior to that, he was using the [facility] BiPAP machine. The patient does feel improved. His breathing is better. Objective - Vital Signs Vital signs: Vital Signs Temp 97.6 F 10/31/21 11:49 Pulse 73 10/31/21 11:49 Resp 16 10/31/21 11:49 BP 121/86 10/31/21 11:49 Pulse Ox 96 10/31/21 11:49 Intake & Output 10/30/21 10/31/21 10/31/21 18:59 06:59 18:59 Intake Total 1200 440 120 Output Total 1200 1000 1100 Balance 0 -560 -980 Intake: Intake, IV Titration 200 Amount Piperacillin-Tazobactam 3 200 .375 gm In Sodium Chloride 0.9% 100 ml @ 25 mls/hr IVPB Q8HR [facility] Rx# :[id number] Oral 1200 240 120 Output: Urine 1200 1000 1100 Other: Voiding Method Indwelling Catheter Indwelling Catheter Indwelling Catheter # Bowel Movements 1 - Exam General: Patient awake alert and oriented x 3. No acute distress. HEENT: Head is atraumatic, normocephalic Neck is supple. Sclerae are clear. Pupils equal, round and reactive to light bilaterally. CV: Heart regular in rate and rhythm positive S1 and S2. No clicks, rubs or murmurs. No JVD. Peripheral pulses equal. 2/4 Lungs: Scattered bilateral rhonchi and expiratory wheezes. No rales or rhonchi. Respirations even and nonlabored. No intercostal retractions.No conversational dyspnea. on 4L NC Abdomen/GI: Soft. Bowel sounds present in all 4 quadrants. Bowel sounds normoactive. No abdominal tenderness. : Cain draining clear yellow urine Musculoskeletal/ Extremities: Generalized weakness. No tenderness on muscular exam. No ecchymosis. Trace edema to b/l LE Vascular: Radial pulses equal. 2/4. Skin: No rash. Neurologic:No focal deficits. Psychiatric: Appropriate mood and affect. - Labs CBC & Chem 7: 10/31/21 07:06 10/31/21 07:06 Labs: Abnormal Lab Results - Last 24 Hours (Table) 10/30/21 10/30/21 10/31/21 Range/Units 16:25 20:57 06:21 WBC (3.8-10.6) k/uL RBC (4.30-5.90) m/uL Hgb (13.0-17.5) gm/dL Hct (39.0-53.0) % MCHC (31.0-37.0) g/dL RDW (11.5-15.5) % Neutrophils # (1.3-7.7) k/uL Lymphocytes # (1.0-4.8) k/uL Carbon Dioxide (22-30) mmol/L BUN (9-20) mg/dL Glucose (74-99) mg/dL POC Glucose (mg/dL) 191 H 220 H 170 H (75-99) mg/dL 10/31/21 10/31/21 10/31/21 Range/Units 07:06 07:06 11:26 WBC 11.0 H (3.8-10.6) k/uL RBC 3.45 L (4.30-5.90) m/uL Hgb 9.7 L (13.0-17.5) gm/dL Hct 33.4 L (39.0-53.0) % MCHC 29.1 L (31.0-37.0) g/dL RDW 18.2 H (11.5-15.5) % Neutrophils # 10.3 H (1.3-7.7) k/uL Lymphocytes # 0.4 L (1.0-4.8) k/uL Carbon Dioxide 33 H (22-30) mmol/L BUN 36 H (9-20) mg/dL Glucose 152 H (74-99) mg/dL POC Glucose (mg/dL) 255 H (75-99) mg/dL Microbiology - Last 24 Hours (Table) 10/26/21 11:43 Blood Culture - Preliminary Blood No Growth after 96 hours 10/26/21 11:43 Blood Culture - Preliminary Blood No Growth after 96 hours 10/27/21 09:10 Gram Stain - Final Sputum Sputum Culture - Final Mery albicans Klebsiella pneumoniae Assessment and Plan Plan: Plan: The patient states he worked with PT yesterday. He was able to get up into the chair with assistance. He is looking forward to working with them again today. The patient states he was able to wear his CPAP for 4-5 hours last night and slept well. He did not need his Restoril. He stated he experience some anxiety yesterday, asked for a Xanax, and stated it helped relax him. He c/o 5/10 neuropathy pain to b/l feet. He stated he already requested a [place] from the nurse. He states he gets adequate relief with [place]. The patient's goal is still to return to [facility] for rehab when medically stable. Information/phone number provided for outpatient Palliative Care for when he returns home from rehab. [facility] Palliative Care [facility] [id number] Email: [email or web address] Time with Patient: Less than 30
[2021-10-31] MEDS: RIVAROXABAN 20 MG TAB PO SCH (16:22)
[2021-10-31 16:36] LABS: Glucose,Whole Blood 151 mg/dL (75-99)
[2021-10-31 20:16] LABS: Glucose,Whole Blood 163 mg/dL (75-99)
[2021-10-31] MEDS: ESCITALOPRAM 20 MG TAB PO SCH (21:28)
[2021-10-31] MEDS: ALPRAZolam 0.25 MG TAB PO PRN (21:28)
[2021-10-31] MEDS: TAMSULOSIN 0.4 MG CAP.ER.24H PO SCH (21:28)
[2021-10-31] MEDS: PRAVASTATIN SODIUM 80 MG TAB PO SCH (21:28)
[2021-10-31] MEDS: METOPROLOL SUCCINATE (ER) 50 MG TAB.ER.24H PO SCH (21:28)
[2021-10-31] MEDS: OLANZapine 2.5 MG TAB PO SCH (21:28)
--- NOTE | 2021-10-31 23:19 | P.PN ---
Subjective Progress Note Date: 10/30/21 Patient is a 76-year-old male with a known history of atrial fibrillation on anticoagulation with Xarelto, chronic CHF diastolic function, COPD, history of CVA/TIA with residual right-sided weakness, chronic hypoxic respiratory failure on oxygen at 4 L via nasal cannula, pulmonary fibrosis, obstructive sleep apnea,, GERD, hearing disorder/deafness, hypertension, hyperlipidemia, history of [place], CAD status post CABG and other multiple medical problems including previous history of smoking presents to ER with complaints of worsening shortness of breath. Patient was unresponsive and was in agonal breathing when he presented to ER. He was placed on CPAP by EMS and transition to BiPAP in the ER. Patient was transferred to MICU. Chest x-ray showed COPD with bilateral infiltrate and pleural effusion. Cardiomegaly. EKG showed atrial fibrillation with rapid ventricular rate heart rate 120 Laboratory data showed WBC 17.0 hemoglobin 10.8 and platelets 301 ABG showed pH of 7.4 PCO2 55 PO2 97 Sodium 137 potassium 3.6 chloride 96 bicarbonate 31 BUN 21 creatinine 1.04 Lactic acid 3.7 Troponin 0.153 proBNP 3470 Urinalysis showed cloudy with 1+ protein and a small blood and small leukocyte esterase RBCs 9 and WBC is 8. 10/27/2021 Patient is currently in the MICU. Currently transitioning to oxygen via nasal cannula at 4 L. Patient was BiPAP overnight. Patient is being continued IV Lasix due to acute renal chronic CHF. Also on antibiotics in the form of Zosyn. Continued on methylprednisolone as well. Cultures have been negative so far. Chest x-ray today showed stable chest with persistent bilateral infiltrates. Laboratory data showed WBC 10.7, hemoglobin 9.5 and platelets 244 BUN 21 creat inine 0.68 and bicarb level is 36. Blood sugar is 175 albumin 3.0 10/28/2021 Patient is currently resting in bed. Awake alert and oriented x3. Currently on 4 L oxygen via nasal cannula. Patient was transferred to medical floor yesterday. Was using BiPAP last night. Otherwise patient is being continued IV diuretics and will be changed to by mouth Lasix from tomorrow. Patient is also on IV antibiotics and IV steroids. Chest x-ray today showed stable chest. Patient has been afebrile. Laboratory data showed WBC 11.2 hemoglobin 8.9 and platelets 210 Sodium 134 potassium 3.9 chloride 94 bicarbonate 32 BUN 28 and creatinine 0.74 and calcium 8.1. Pulmonary and cardiology is on board. 10/29/2021 Patient is currently in the select care unit. Requiring 4 L oxygen via nasal cannula as per his home regimen. Awake alert and oriented x3. No complaints of chest pain. Still having shortness of breath and patient is having exertional dyspnea. Otherwise patient is being continued IV steroids and antibiotics in the form of Zosyn. Lasix changed to by mouth 40 mg twice daily. Chest x-ray today showed correlate for possible pneumonia versus edema. There is underlying emphysema and probable scarring interstitial changes and hiatal hernia, aortic aneurysm. Laboratory data showed WBC 11.6 hemoglobin 8.9 platelets 186 BUN 31 and creatinine 0.66 bicarb is 33 sodium 138 and potassium 4.0. Patient does have low TSH and free T4 levels likely due to sick euthyroid. 10/30/2021 10/30/2021 Patient is currently sitting in the recliner. Requiring oxygen at 4 L via nasal cannula. Denies any complaints of worsening shortness of breath. Still having exertional dyspnea and bilateral rhonchi and crackles. Patient did use CPAP last night. No fever no chills. No nausea vomiting or abdominal pain or diarrhea. Chest x-ray today showed bilateral infiltrate and pleural effusion likely superimposed on background of COPD and pulmonary fibrosis stable. Laboratory data showed WBC 10.4 hemoglobin 9.5 and platelets 172 sodium 135 potassium 4.3 BUN 34 and creatinine 0.7 calcium 8.3 blood sugar is 155. Pulmonary is on board. Patient is being current Lasix 40 mg twice daily and Solu-Medrol IV. also on antibiotics in the form of Zosyn. Sputum cultures are growing Mery albicans and Klebsiella pneumonia. Currently maintained on antibiotics the form of Zosyn. Current medications reviewed. Objective - Vital Signs Vital signs: Vital Signs Temp 97.5 F L 10/30/21 11:47 Pulse 91 10/30/21 13:50 Resp 19 10/30/21 13:50 BP 99/68 10/30/21 11:47 Pulse Ox 94 L 10/30/21 11:47 Intake & Output 10/29/21 10/30/21 10/30/21 18:59 06:59 18:59 Intake Total 1200 260 600 Output Total 825 2075 Balance 375 -1815 600 Weight 104.5 kg Intake: IV 260 0.9 kvo 160 Piperacillin-Tazobactam 3 100 .375 gm In Sodium Chloride 0.9% 100 ml @ 25 mls/hr IVPB Q8HR [facility] Rx# :[id number] Oral 1200 600 Output: Urine 825 2075 Other: Voiding Method Indwelling Catheter Indwelling Catheter Indwelling Catheter # Bowel Movements 1 1 - Exam PHYSICAL EXAMINATION: Patient is lying in the bed comfortably, no acute distress, awake alert and oriented.. HEENT: Normocephalic. Neck is supple. Pupils reactive. Nostrils clear. Oral cavity is moist. Neck reveals no JVD, carotid bruits, or thyromegaly. CHEST EXAMINATION: Trachea is central. Symmetrical expansion. Bibasilar diminished sounds and scattered coarse sounds and crackles. CARDIAC: Normal S1, S2 with no gallops. No murmurs ABDOMEN: Soft. Bowel sounds normal. No organomegaly. No abdominal bruits. Extremities: Bilateral trace edema. No clubbing or cyanosis Neurologically awake, alert, oriented x3 with well-coordinated movements. No focal deficits noted Skin: No rash or skin lesions. Psychiatric: Cooperative. Nonsuicidal Musculoskeletal: No joint swelling or deformity. Normal range of motion. - Labs CBC & Chem 7: 10/31/21 07:06 10/31/21 07:06 Labs: Abnormal Lab Results - Last 24 Hours (Table) 10/29/21 10/29/21 10/30/21 Range/Units 17:13 19:26 05:54 RBC (4.30-5.90) m/uL Hgb (13.0-17.5) gm/dL Hct (39.0-53.0) % MCHC (31.0-37.0) g/dL RDW (11.5-15.5) % Neutrophils # (1.3-7.7) k/uL Lymphocytes # (1.0-4.8) k/uL BUN (9-20) mg/dL Glucose (74-99) mg/dL POC Glucose (mg/dL) 142 H 160 H 178 H (75-99) mg/dL Calcium (8.4-10.2) mg/dL 10/30/21 10/30/21 10/30/21 Range/Units 07:15 07:15 12:01 RBC 3.34 L (4.30-5.90) m/uL Hgb 9.5 L (13.0-17.5) gm/dL Hct 32.5 L (39.0-53.0) % MCHC 29.1 L (31.0-37.0) g/dL RDW 18.4 H (11.5-15.5) % Neutrophils # 9.9 H (1.3-7.7) k/uL Lymphocytes # 0.3 L (1.0-4.8) k/uL BUN 34 H (9-20) mg/dL Glucose 155 H (74-99) mg/dL POC Glucose (mg/dL) 165 H (75-99) mg/dL Calcium 8.3 L (8.4-10.2) mg/dL Microbiology - Last 24 Hours (Table) 10/26/21 11:43 Blood Culture - Preliminary Blood No Growth after 96 hours 10/26/21 11:43 Blood Culture - Preliminary Blood No Growth after 96 hours 10/27/21 09:10 Gram Stain - Final Sputum Sputum Culture - Final Mery albicans Klebsiella pneumoniae Assessment and Plan Assessment: Shortness of breath is multifactorial due to acute COPD and CHF exacerbation and pneumonia. Sputum culture showed Mery albicans and Klebsiella pneumonia Acute on chronic hypoxic respiratory failure requiring BiPAP--4L NC Acute COPD exacerbation Acute on chronic CHF with diastolic dysfunction Lactic acidosis 3.7 on admission Mildly elevated troponin level likely due to demand mismatch Chronic hypoxic respiratory failure requiring 4 L oxygen via nasal cannula Chronic atrial fibrillation with rapid ventricular rate on admission History of CVA/TIA with right-sided weakness Coronary disease s/p CABG history History of [place] GERD Hearing disorder/deafness Hypertension Hyperlipidemia Previous history of smoking History of AAA repair Plan: Patient will be continued on antibiotics along with Zosyn. Was given a dose of ceftriaxone azithromycin in the ER. Continue with IV steroids and IV Lasix changed to by mouth.. Transitioned to oxygen via nasal cannula at 4 L. patient was started back on CPAP as per his home settings,. Pulmonary is following. Continue the home medications and follow closely. Prognosis is guarded at this time. Time with Patient: Greater than 30
--- NOTE | 2021-10-31 23:21 | P.PN ---
Subjective Progress Note Date: 10/31/21 Patient is a 76-year-old male with a known history of atrial fibrillation on anticoagulation with Xarelto, chronic CHF diastolic function, COPD, history of CVA/TIA with residual right-sided weakness, chronic hypoxic respiratory failure on oxygen at 4 L via nasal cannula, pulmonary fibrosis, obstructive sleep apnea,, GERD, hearing disorder/deafness, hypertension, hyperlipidemia, history of [place], CAD status post CABG and other multiple medical problems including previous history of smoking presents to ER with complaints of worsening shortness of breath. Patient was unresponsive and was in agonal breathing when he presented to ER. He was placed on CPAP by EMS and transition to BiPAP in the ER. Patient was transferred to MICU. Chest x-ray showed COPD with bilateral infiltrate and pleural effusion. Cardiomegaly. EKG showed atrial fibrillation with rapid ventricular rate heart rate 120 Laboratory data showed WBC 17.0 hemoglobin 10.8 and platelets 301 ABG showed pH of 7.4 PCO2 55 PO2 97 Sodium 137 potassium 3.6 chloride 96 bicarbonate 31 BUN 21 creatinine 1.04 Lactic acid 3.7 Troponin 0.153 proBNP 3470 Urinalysis showed cloudy with 1+ protein and a small blood and small leukocyte esterase RBCs 9 and WBC is 8. 10/27/2021 Patient is currently in the MICU. Currently transitioning to oxygen via nasal cannula at 4 L. Patient was BiPAP overnight. Patient is being continued IV Lasix due to acute renal chronic CHF. Also on antibiotics in the form of Zosyn. Continued on methylprednisolone as well. Cultures have been negative so far. Chest x-ray today showed stable chest with persistent bilateral infiltrates. Laboratory data showed WBC 10.7, hemoglobin 9.5 and platelets 244 BUN 21 creat inine 0.68 and bicarb level is 36. Blood sugar is 175 albumin 3.0 10/28/2021 Patient is currently resting in bed. Awake alert and oriented x3. Currently on 4 L oxygen via nasal cannula. Patient was transferred to medical floor yesterday. Was using BiPAP last night. Otherwise patient is being continued IV diuretics and will be changed to by mouth Lasix from tomorrow. Patient is also on IV antibiotics and IV steroids. Chest x-ray today showed stable chest. Patient has been afebrile. Laboratory data showed WBC 11.2 hemoglobin 8.9 and platelets 210 Sodium 134 potassium 3.9 chloride 94 bicarbonate 32 BUN 28 and creatinine 0.74 and calcium 8.1. Pulmonary and cardiology is on board. 10/29/2021 Patient is currently in the select care unit. Requiring 4 L oxygen via nasal cannula as per his home regimen. Awake alert and oriented x3. No complaints of chest pain. Still having shortness of breath and patient is having exertional dyspnea. Otherwise patient is being continued IV steroids and antibiotics in the form of Zosyn. Lasix changed to by mouth 40 mg twice daily. Chest x-ray today showed correlate for possible pneumonia versus edema. There is underlying emphysema and probable scarring interstitial changes and hiatal hernia, aortic aneurysm. Laboratory data showed WBC 11.6 hemoglobin 8.9 platelets 186 BUN 31 and creatinine 0.66 bicarb is 33 sodium 138 and potassium 4.0. Patient does have low TSH and free T4 levels likely due to sick euthyroid. 10/30/2021 10/30/2021 Patient is currently sitting in the recliner. Requiring oxygen at 4 L via nasal cannula. Denies any complaints of worsening shortness of breath. Still having exertional dyspnea and bilateral rhonchi and crackles. Patient did use CPAP last night. No fever no chills. No nausea vomiting or abdominal pain or diarrhea. Chest x-ray today showed bilateral infiltrate and pleural effusion likely superimposed on background of COPD and pulmonary fibrosis stable. Laboratory data showed WBC 10.4 hemoglobin 9.5 and platelets 172 sodium 135 potassium 4.3 BUN 34 and creatinine 0.7 calcium 8.3 blood sugar is 155. Pulmonary is on board. Patient is being current Lasix 40 mg twice daily and Solu-Medrol IV. also on antibiotics in the form of Zosyn. Sputum cultures are growing Mery albicans and Klebsiella pneumonia. Currently maintained on antibiotics the form of Zosyn. 10/31/2021 Patient is currently resting in bed. Denies any complaints of worsening shortness of air. Still requiring 4 L via nasal cannula. Did not use CPAP last night. No complaints of chest pain. No headache or dizziness lightheadedness. PT OT has seen the patient. Laboratory test showed WBC 11.0 hemoglobin 9.7 platelets 171 BUN 36 and creatinine 0.76 and bicarb is 33. Patient is being under antibiotics in the form of Zosyn. IV steroids changed to prednisone and current with Lasix 40 mg twice daily. Current medications reviewed. Objective - Vital Signs Vital signs: Vital Signs Temp 97.8 F 04/20/22 16:00 Pulse 72 10/31/21 19:55 Resp 18 10/31/21 16:00 BP 129/81 10/31/21 16:00 Pulse Ox 97 10/31/21 16:00 Intake & Output 10/31/21 10/31/21 11/01/21 06:59 18:59 06:59 Intake Total 440 120 Output Total 1000 1925 Balance -560 -1805 Weight 104.5 kg Intake: Intake, IV Titration 200 Amount Piperacillin-Tazobactam 3 200 .375 gm In Sodium Chloride 0.9% 100 ml @ 25 mls/hr IVPB Q8HR [facility] Rx# :[id number] Oral 240 120 Output: Urine 1000 1925 Other: Voiding Method Indwelling Catheter Indwelling Catheter # Bowel Movements 1 - Exam PHYSICAL EXAMINATION: Patient is lying in the bed comfortably, no acute distress, awake alert and oriented.. HEENT: Normocephalic. Neck is supple. Pupils reactive. Nostrils clear. Oral cavity is moist. Neck reveals no JVD, carotid bruits, or thyromegaly. CHEST EXAMINATION: Trachea is central. Symmetrical expansion. Bibasilar diminished sounds and scattered coarse sounds and crackles. CARDIAC: Normal S1, S2 with no gallops. No murmurs ABDOMEN: Soft. Bowel sounds normal. No organomegaly. No abdominal bruits. Extremities: Bilateral trace edema. No clubbing or cyanosis Neurologically awake, alert, oriented x3 with well-coordinated movements. No focal deficits noted Skin: No rash or skin lesions. Psychiatric: Cooperative. Nonsuicidal Musculoskeletal: No joint swelling or deformity. Normal range of motion. - Labs CBC & Chem 7: 10/31/21 07:06 10/31/21 07:06 Labs: Abnormal Lab Results - Last 24 Hours (Table) 10/31/21 10/31/21 10/31/21 Range/Units 06:21 07:06 07:06 WBC 11.0 H (3.8-10.6) k/uL RBC 3.45 L (4.30-5.90) m/uL Hgb 9.7 L (13.0-17.5) gm/dL Hct 33.4 L (39.0-53.0) % MCHC 29.1 L (31.0-37.0) g/dL RDW 18.2 H (11.5-15.5) % Neutrophils # 10.3 H (1.3-7.7) k/uL Lymphocytes # 0.4 L (1.0-4.8) k/uL Carbon Dioxide 33 H (22-30) mmol/L BUN 36 H (9-20) mg/dL Glucose 152 H (74-99) mg/dL POC Glucose (mg/dL) 170 H (75-99) mg/dL 10/31/21 10/31/21 10/31/21 Range/Units 11:26 16:35 20:14 WBC (3.8-10.6) k/uL RBC (4.30-5.90) m/uL Hgb (13.0-17.5) gm/dL Hct (39.0-53.0) % MCHC (31.0-37.0) g/dL RDW (11.5-15.5) % Neutrophils # (1.3-7.7) k/uL Lymphocytes # (1.0-4.8) k/uL Carbon Dioxide (22-30) mmol/L BUN (9-20) mg/dL Glucose (74-99) mg/dL POC Glucose (mg/dL) 255 H 151 H 163 H (75-99) mg/dL Microbiology - Last 24 Hours (Table) 10/26/21 11:43 Blood Culture - Preliminary Blood No Growth after 120 hours 10/26/21 11:43 Blood Culture - Preliminary Blood No Growth after 120 hours Assessment and Plan Assessment: Shortness of breath is multifactorial due to acute COPD and CHF exacerbation and pneumonia. Sputum culture showed Mery albicans and Klebsiella pneumonia Acute on chronic hypoxic respiratory failure requiring BiPAP--4L NC Acute COPD exacerbation Acute on chronic CHF with diastolic dysfunction Lactic acidosis 3.7 on admission Mildly elevated troponin level likely due to demand mismatch Chronic hypoxic respiratory failure requiring 4 L oxygen via nasal cannula Chronic atrial fibrillation with rapid ventricular rate on admission History of CVA/TIA with right-sided weakness Coronary disease s/p CABG history History of [place] GERD Hearing disorder/deafness Hypertension Hyperlipidemia Previous history of smoking History of AAA repair Plan: Patient will be continued on antibiotics along with Zosyn. Was given a dose of ceftriaxone azithromycin in the ER. Continue with IV steroids and IV Lasix changed to by mouth.. Transitioned to oxygen via nasal cannula at 4 L. patient was started back on CPAP as per his home settings,. Pulmonary is following. Continue the home medications and follow closely. Prognosis is guarded at this time. Time with Patient: Greater than 30
[2021-11-01] MEDS: PIPERACILLIN-TAZOBACTAM 3.375 GM in SODIUM CHLORIDE 0.9% 100 ML IVPB SCH ×4 (01:22→23:03)
[2021-11-01 05:06] LABS: Glucose,Whole Blood 124 mg/dL (75-99)
[2021-11-01] MEDS: PANTOPRAZOLE 40 MG TABLET PO SCH (06:14)
[2021-11-01] MEDS: FERROUS SULFATE 325 MG TAB PO SCH ×2 (06:14→17:06)
[2021-11-01] MEDS: INSULIN ASPART (NovoLOG) 100 UNIT/ML VIAL SQ SCH ×4 (06:16→20:37)
[2021-11-01] MEDS: CHOLECALCIFEROL 25 MCG (1000 IU) TABLET PO SCH (08:49)
[2021-11-01] MEDS: DOCUSATE 100 MG CAP PO SCH ×2 (08:49→20:37)
[2021-11-01] MEDS: PREGABALIN 100 MG CAP PO SCH ×3 (08:49→20:37)
[2021-11-01] MEDS: FUROSEMIDE 40 MG TAB PO SCH ×2 (08:49→17:06)
[2021-11-01] MEDS: METOPROLOL SUCCINATE (ER) 100 MG TAB.ER.24H PO SCH (08:49)
[2021-11-01] MEDS: ISOSORBIDE MONONITRATE ER 60 MG TAB.ER.24H PO SCH (08:49)
[2021-11-01] MEDS: SPIRONOLACTONE 25 MG TAB PO SCH (08:49)
[2021-11-01] MEDS: predniSONE 20 MG TAB PO SCH (08:49)
[2021-11-01] MEDS: POTASSIUM CHLORIDE ER 20 MEQ TAB.ER PO SCH ×2 (08:49→20:37)
[2021-11-01] MEDS: SYMBICORT 160-4.5 MCG INHALER INHALATION SCH ×2 (09:04→20:18)
[2021-11-01] MEDS: IPRATROPIUM-ALBUTEROL 3 ML NEB INHALATION SCH ×4 (09:04→20:18)
[2021-11-01] MEDS: ALPRAZolam 0.25 MG TAB PO PRN ×2 (11:02→20:37)
--- NOTE | 2021-11-01 11:26 | P.PN ---
Subjective Progress Note Date: 11/01/21 Principal diagnosis: COPD exacerbation. Reevaluated today on 10/27/2021, patient remains in the ICU, he is now on nasal cannula, he is on 4 L with O2 sats of 96%. At night he was on BiPAP at IPAP of 10 and EPAP of 5 and FiO2 of 36%. Patient is being treated for pneumonia, and p ossibly acute on chronic diastolic congestive heart failure. He has been on diuretics, has been receiving Zosyn for presumptive aspiration pneumonia. Clinically the patient is feeling better, breathing a lot easier, he does have history of alcohol abuse, and he is on [facility] protocol for potential alcohol withdrawal.CBC is relatively normal left was abnormal renal profile is normal. Chest x-ray continues to show bilateral infiltrates/interstitial edema is also possible Reevaluated today on 10/28/2021, patient is now on the regular medical floor, seems to be doing better, he is on 4 L nasal cannula, O2 sats is 92%. Patient is still receiving treatment for acute on chronic diastolic congestive heart failure, and possibly underlying pneumonia. Patient may have developed aspiration pneumonia based on the clinical history. And he is still on Zosyn. Clinically improving. Labs are unremarkable including a relatively normal CBC except hemoglobin of 8.9 electrolytes are normal renal profile is normal. Patient clearly stated to me that he is feeling better since admission. Chest x-ray continues to show bilateral interstitial infiltrates/edema at the bases difficult to tell how much of it is really interstitial edema or pneumonia. Progress note dated 10/29/2021. 76-year-old male who was in the intensive care unit, but is currently seen on the general medical floor, room 368. Currently, he's on 4 L nasal cannula. The patient will use his home CPAP tonight. Last night, use a hospital BiPAP system, with settings of 10 and 5 and 36%. He's feeling much improved. His shortness of breath is much improved. He is currently not receiving any IV fluids. I have includes a white count 9.6, hemoglobin 8.9, hematocrit 30.3, and platelet count 186,000. Sodium 138, potassium 4, chlorides 99, CO2 33, BUN 31, and creatinine 0.66. Chest x-ray shows some patchy densities in the bilateral lower lobes, with blunting of the costophrenic angles. Progress note dated 10/30/2021. A 76-year-old male, again seen in room 368. The patient is doing relatively well. He remains on 4 L nasal cannula. He did use his home CPAP device last night. Prior to that, he was using the [facility] BiPAP machine. The patient does feel improved. His breathing is better. Currently laboratory data includes a white count of 10.5, hemoglobin 9.5, hematocrit 32.5, and platelet count 172,000. Sodium 137, potassium 4.3, chlorides 99, CO2 30, BUN 34, and creatinine 0.7. Chest x-ray shows bilateral pleural effusions, which are small, with bilateral infiltrates, which are stable. Progress note dated 10/31/2021. 76-year-old male, again seen in room 368. The patient's doing relatively well. He did use his CPAP device last night for about 4-5 hours. At 2 nights in a row. The patient is feeling improved. Lab data today includes a white count of 11, hemoglobin 9.7, hematocrit 33.4, and platelet count 171,000. Sodium 137, potassium 4.3, chlorides 98, CO2 33, BUN 36, and creatinine 0.76. Sputum did reveal evidence of Klebsiella pneumoniae. Chest x-ray shows bilateral infiltrates, and pleural effusions, and also changes of COPD, and pulmonary fibrosis. Progress note dated 11/01/2021. 76-year-old male, again seen in room 368. Sitting up in bed. He is wearing O2. The patient is complaining about being a bit more short of breath today. He's not recently received a breathing treatment. He is using his home CPAP at nighttime. He apparently uses about 4 hours last night. Sputum did reveal evidence of Klebsiella pneumoniae. No new labs today to report. Chest x-ray from October 30 was reviewed. Objective - Vital Signs Vital signs: Vital Signs Temp 98.6 F 11/01/21 08:00 Pulse 92 11/01/21 09:12 Resp 17 11/01/21 08:00 BP 99/61 11/01/21 08:00 Pulse Ox 94 L 11/01/21 08:00 Intake & Output 10/31/21 11/01/21 11/01/21 18:59 06:59 18:59 Intake Total 120 100 897 Output Total 1925 Balance -1805 100 897 Weight 104.5 kg Intake: Intake, IV Titration 100 Amount Piperacillin-Tazobactam 3 100 .375 gm In Sodium Chloride 0.9% 100 ml @ 25 mls/hr IVPB Q8HR [facility] Rx# :[id number] Oral 120 897 Output: Urine 1925 Other: Voiding Method Indwelling Catheter Indwelling Catheter # Voids 1 # Bowel Movements 1 1 1 - Exam No acute distress, oriented 3. Resting comfortably in bed. Currently on 4 L nasal cannula. No conversational dyspnea or use of accessory muscles. HEENT examination is grossly unremarkable. Neck supple. Full range of motion. No adenopathy thyromegaly or neck vein distention. Cardiovascular examination reveals regular rhythm rate. S1-S2 normal. No S3 or S4. No discernible murmur noted. Heart rate 92 bpm. Lungs reveal scattered bilateral rhonchi. No wheezes. No crackles. Breath sounds equal bilaterally. Saturations are 94% on 4 L. Abdomen soft bowel sounds are heard. No masses or tenderness. Extremities are intact. No cyanosis clubbing or edema. Skin is without rash or lesion. Neurologic examination is brief but nonfocal. - Labs CBC & Chem 7: 10/31/21 07:06 10/31/21 07:06 Labs: Abnormal Lab Results - Last 24 Hours (Table) 10/31/21 10/31/21 10/31/21 Range/Units 11:26 16:35 20:14 POC Glucose (mg/dL) 255 H 151 H 163 H (75-99) mg/dL 11/01/21 Range/Units 04:53 POC Glucose (mg/dL) 124 H (75-99) mg/dL Microbiology - Last 24 Hours (Table) 10/26/21 11:43 Blood Culture - Preliminary Blood No Growth after 120 hours 10/26/21 11:43 Blood Culture - Preliminary Blood No Growth after 120 hours Assessment and Plan Assessment: Acute on chronic hypoxemic respiratory failure, secondary to COPD exacerbation, and possible aspiration pneumonia. Klebsiella pneumoniae pneumonia, currently on Zosyn. Acute on chronic diastolic CHF. Unresponsiveness, resolved, secondary to metabolic encephalopathy. Chronic atrial fibrillation. History of hypertension. History of previous myocardial infarction. History of obstructive sleep apnea syndrome, noncompliant with CPAP. History of alcohol abuse. History of previous tobacco use. History of CVA/TIA. Plan: Plan dated 10/29/2021. The patient appears to be doing much better. The patient's currently on 4 L nasal cannula. The patient's awake and alert. Patient plans to use his home CPAP device tonight. Last night, he used IPAP, with settings of 10/5 and 36%. He's not receiving any IV fluids. Labs, x-rays, and medications are all reviewed. He continues on GI and DVT prophylaxis, and antibiotics in the form of Zosyn. Prognosis is guarded. We will continue to follow the patient make recommendations where appropriate. Plan dated 10/30/2021. The patient appears to be doing better. He remains on 4 L. He does use his home CPAP device last night. He used to for about 5 hours or so. He seemed to tolerate it pretty well. Labs, x-rays, and medications are reviewed. The patient appears to be doing better. His breathing is improved. He remains on Zosyn. We will continue to follow the patient make recommendations were appropriate. He continues on GI and DVT prophylaxis. Sputum did show evidence of Klebsiella pneumoniae. The Klebsiella is sensitive to Zosyn. Plan dated 10/31/2021. The patient seems to be doing better. He's currently on 4 L. His sputum from the 16th was positive for Klebsiella pneumoniae. He remains on Zosyn. He continues on GI prophylaxis. The patient is using his home CPAP device at nighttime. He used it for about 4-5 hours last night. We will continue to f ollow the patient and make recommendations where appropriate. His labs, x-rays, and medications are all reviewed. Plan dated 11/01/2021. The patient is currently on 4 L. His saturations are 94-95%. The patient is currently on Zosyn for Klebsiella pneumoniae pneumonia. He continues on GI and DVT prophylaxis. He is using his home CPAP device. I've asked him to try to use it more more each night. Labs, x-rays, and medications are all reviewed. Prognosis is guarded. We will continue to follow make recommendations where appropriate. Time with Patient: Less than 30
[2021-11-01 11:39] LABS: Glucose,Whole Blood 116 mg/dL (75-99)
[2021-11-01] MEDS: HYDROcodone/APAP 7.5-325MG 1 EACH TAB PO PRN ×2 (12:04→19:14)
--- NOTE | 2021-11-01 12:41 | P.PN ---
Subjective Progress Note Date: 11/01/21 Principal diagnosis: COPD excerbation/pneumonia pneumonia, exacerbation of CHF and COPD Patient is a 76-year-old male with a known history of atrial fibrillation on anticoagulation with Xarelto, chronic CHF diastolic function, COPD, history of CVA/TIA with residual right-sided weakness, pulmonary fibrosis, obstructive sleep apnea, GERD, hearing disorder/deafness, hypertension, hyperlipidemia, history of [place], CAD status post CABG and other multiple medical problems including previous history of smoking presented to the on 10/26/21 with complaints of worsening shortness of breath. Patient was unresponsive and was in agonal breathing and was placed on CPAP by EMS and transition to BiPAP in the ER. Patient was transferred to MICU. Chest x-ray showed COPD with bilateral infiltrate and pleural effusion. Cardiomegaly. EKG showed atrial fibrillation with rapid ventricular rate heart rate 120. 10/27/2021 Patient was in the ICU. Oxygen via nasal cannula at 4 L. Patient wore BiPAP overnight. Patient continued on IV Lasix due to acute renal chronic CHF. Also on antibiotics in the form of Zosyn and Methylprednisolone Cultures have been negative so far. Chest x-ray today showed stable chest with persistent bilateral infiltrates. Transferred to medical floor 10/28/2021 Patient stable on 4 L oxygen via nasal cannula and wears BiPAP at night. IV diuretics, antibiotics, and steroids continued. Chest x-ray stable. 10/29/2021 Patient resting in bed comfortably. No actue distress noted. Patient c/o dyspnea on exertion. Stable on 4L NC and BiPAP overnight. Sputum did show evidence of Klebsiella pneumoniae. The Klebsiella is sensitive to Zosyn. 10/30/2021 The patient is doing relatively well. He remains on 4 L nasal cannula. He did use his home CPAP device last night. Prior to that, he was using the [facility] BiPAP machine. The patient does feel improved. His breathing is better. 10/31/21 The patient states he worked with PT yesterday. He was able to get up into the chair with assistance. He is looking forward to working with them again today.The patient states he was able to wear his CPAP for 4-5 hours last night and slept well. He did not need his Restoril. He stated he experience some anxiety yesterday, asked for a Xanax, and stated it helped relax him. He c/o / neuropathy pain to b/l feet. He stated he already requested a Mayking from the nurse. He states he gets adequate relief with Mayking. Objective - Vital Signs Vital signs: Vital Signs Temp 98.6 F 11/01/21 08:00 Pulse 90 11/01/21 12:27 Resp 17 11/01/21 08:00 BP 99/61 11/01/21 08:00 Pulse Ox 94 L 11/01/21 08:00 Intake & Output 10/31/21 11/01/21 11/01/21 18:59 06:59 18:59 Intake Total 120 100 897 Output Total 1925 Balance -1805 100 897 Weight 104.5 kg Intake: Intake, IV Titration 100 Amount Piperacillin-Tazobactam 3 100 .375 gm In Sodium Chloride 0.9% 100 ml @ 25 mls/hr IVPB Q8HR [facility] Rx# :[id number] Oral 120 897 Output: Urine 1925 Other: Voiding Method Indwelling Catheter Indwelling Catheter # Voids 1 # Bowel Movements 1 1 1 - Exam General: Patient awake alert and oriented x 3. No acute distress. HEENT: Head is atraumatic, normocephalic Neck is supple. Sclerae are clear. Pupils equal, round and reactive to light bilaterally. CV: Heart regular in rate and rhythm positive S1 and S2. No clicks, rubs or murmurs. No JVD. Peripheral pulses equal. 2/4 Lungs: Scattered bilateral rhonchi and expiratory wheezes. No rales or rhonchi. Respirations even and nonlabored. No intercostal retractions.No conversational dyspnea. on 4L NC Abdomen/GI: Soft. Bowel sounds present in all 4 quadrants. Bowel sounds normoactive. No abdominal tenderness. : Cain draining clear yellow urine Musculoskeletal/ Extremities: Generalized weakness. No tenderness on muscular exam. No ecchymosis. Trace edema to b/l LE Vascular: Radial pulses equal. 2/4. Skin: No rash. Neurologic:No focal deficits. Psychiatric: Appropriate mood and affect. - Labs CBC & Chem 7: 10/31/21 07:06 10/31/21 07:06 Labs: Abnormal Lab Results - Last 24 Hours (Table) 10/31/21 10/31/21 11/01/21 Range/Units 16:35 20:14 04:53 POC Glucose (mg/dL) 151 H 163 H 124 H (75-99) mg/dL 11/01/21 Range/Units 11:37 POC Glucose (mg/dL) 116 H (75-99) mg/dL Microbiology - Last 24 Hours (Table) 10/26/21 11:43 Blood Culture - Preliminary Blood No Growth after 120 hours 10/26/21 11:43 Blood Culture - Preliminary Blood No Growth after 120 hours Assessment and Plan Assessment: Patient resting in bed. He denies any pain. He states he is feeling very anxious. He is currently on 4L NC SPO2 94%. No distress noted. He stated he was able to tolerate his CPAP for 3-4 hours last night. He is waiting for the nurse to get him to the commode and then would like to sit in the chair. He states he still gets quite SOB with exertion. RN notified that the patient is requesting a Xanax and needs assistance going to the bathroom. Plan: The patient's goal is still to return to [facility] for rehab when medically stable. Information/phone number provided for outpatient Palliative Care for when he returns home from rehab.
[2021-11-01 16:25] LABS: Glucose,Whole Blood 249 mg/dL (75-99)
[2021-11-01] MEDS: RIVAROXABAN 20 MG TAB PO SCH (17:06)
[2021-11-01 20:20] LABS: Glucose,Whole Blood 207 mg/dL (75-99)
[2021-11-01] MEDS: METOPROLOL SUCCINATE (ER) 50 MG TAB.ER.24H PO SCH (20:37)
[2021-11-01] MEDS: OLANZapine 2.5 MG TAB PO SCH (20:37)
[2021-11-01] MEDS: PRAVASTATIN SODIUM 80 MG TAB PO SCH (20:37)
[2021-11-01] MEDS: TAMSULOSIN 0.4 MG CAP.ER.24H PO SCH (20:37)
[2021-11-01] MEDS: ESCITALOPRAM 20 MG TAB PO SCH (20:37)
[2021-11-02 05:46] LABS: Glucose,Whole Blood 103 mg/dL (75-99)
[2021-11-02] MEDS: INSULIN ASPART (NovoLOG) 100 UNIT/ML VIAL SQ SCH ×4 (06:19→20:40)
[2021-11-02] MEDS: FERROUS SULFATE 325 MG TAB PO SCH ×2 (06:19→16:56)
[2021-11-02] MEDS: PANTOPRAZOLE 40 MG TABLET PO SCH (06:19)
[2021-11-02] MEDS: SYMBICORT 160-4.5 MCG INHALER INHALATION SCH ×2 (08:22→20:20)
[2021-11-02] MEDS: IPRATROPIUM-ALBUTEROL 3 ML NEB INHALATION SCH ×4 (08:22→20:20)
[2021-11-02] MEDS: predniSONE 20 MG TAB PO SCH (08:27)
[2021-11-02] MEDS: SPIRONOLACTONE 25 MG TAB PO SCH (08:27)
[2021-11-02] MEDS: HYDROcodone/APAP 7.5-325MG 1 EACH TAB PO PRN ×2 (08:27→16:56)
[2021-11-02] MEDS: PIPERACILLIN-TAZOBACTAM 3.375 GM in SODIUM CHLORIDE 0.9% 100 ML IVPB SCH ×2 (08:28→16:56)
[2021-11-02] MEDS: METOPROLOL SUCCINATE (ER) 100 MG TAB.ER.24H PO SCH (08:28)
[2021-11-02] MEDS: FUROSEMIDE 40 MG TAB PO SCH ×2 (08:28→16:57)
[2021-11-02] MEDS: POTASSIUM CHLORIDE ER 20 MEQ TAB.ER PO SCH ×2 (08:28→20:40)
[2021-11-02] MEDS: PREGABALIN 100 MG CAP PO SCH ×3 (08:28→20:40)
[2021-11-02] MEDS: CHOLECALCIFEROL 25 MCG (1000 IU) TABLET PO SCH (08:28)
[2021-11-02] MEDS: DOCUSATE 100 MG CAP PO SCH ×2 (08:28→20:40)
[2021-11-02] MEDS: ISOSORBIDE MONONITRATE ER 60 MG TAB.ER.24H PO SCH (09:27)
[2021-11-02] MEDS ORDERED: polyethylene glycoL 3350 17 GM POWD.PACK PO PRN (09:41)
[2021-11-02 09:44] LABS: Anisocytosis Slight; Basophils % (A) 0 %; Eosinophils # (A) 0.1 k/uL (0-0.7); Eosinophils % (A) 0 %; HCT 34.8 % (39.0-53.0); HGB 10.4 gm/dL (13.0-17.5); Hypochromasia Marked; Lymphocytes # (A) 1.3 k/uL (1.0-4.8); Lymphocytes % (A) 10 %; MCH 29.1 pg (25.0-35.0); MCHC 29.8 g/dL (31.0-37.0); MCV 97.6 fL (80.0-100.0); Macrocytosis Slight; Mean Platelet Volume 9.2; Monocytes # (A) 0.4 k/uL (0-1.0); Monocytes % (A) 3 %; Neutrophils # (A) 11.3 k/uL (1.3-7.7); Neutrophils % (A) 86 %; Platelet Count 134 k/uL (150-450); RBC 3.57 m/uL (4.30-5.90); RDW 19.4 % (11.5-15.5); WBC 13.2 k/uL (3.8-10.6)
[2021-11-02 10:08] LABS: African American GFR (CKD) >90 (>60 ml/min/1.73 sqM); Anion Gap 7 mmol/L; Blood Urea Nitrogen 35 mg/dL (9-20); Calcium 8.6 mg/dL (8.4-10.2); Carbon Dioxide 32 mmol/L (22-30); Chloride 98 mmol/L (98-107); Glucose 106 mg/dL (74-99); Non-African American GFR(CKD) 88 (>60 ml/min/1.73 sqM); Potassium 3.8 mmol/L (3.5-5.1); Sodium 137 mmol/L (137-145)
--- NOTE | 2021-11-02 10:34 | XR ---
EXAMINATION TYPE: XR chest 1V portable DATE OF EXAM: 11/02/2021 COMPARISON: 10/30/2021 HISTORY: Shortness of breath TECHNIQUE: Single frontal view of the chest is obtained. FINDINGS: Diffuse hyperinflation. Patchy bilateral areas of infiltrate and small effusion. Rib fract ures are seen stable sizable thorax. Cardiomegaly, atherosclerotic change aorta, and post surgical ch anges are noted. Underlying pulmonary interstitial lung disease or fibrosis suspected. IMPRESSION: Bilateral infiltrate and pleural effusion stable correlate for pneumonia otherwise consi izabella CHF.
--- NOTE | 2021-11-02 10:37 | P.PN ---
Subjective Progress Note Date: 11/02/21 Principal diagnosis: Exacerbation or CHF, pneumonia Patient is a 76-year-old male with a known history of atrial fibrillation on anticoagulation with Xarelto, chronic CHF diastolic function, COPD, history of CVA/TIA with residual right-sided weakness, pulmonary fibrosis, obstructive sleep apnea, GERD, hearing disorder/deafness, hypertension, hyperlipidemia, history of [place], CAD status post CABG and other multiple medical problems including previous history of smoking presented to the on 10/26/21 with complaints of worsening shortness of breath. Patient was unresponsive and was in agonal breathing and was placed on CPAP by EMS and transition to BiPAP in the ER. Patient was transferred to MICU. Chest x-ray showed COPD with bilateral infiltrate and pleural effusion. Car diomegaly. EKG showed atrial fibrillation with rapid ventricular rate heart rate 120. 10/27/2021 Patient was in the ICU. Oxygen via nasal cannula at 4 L. Patient wore BiPAP overnight. Patient continued on IV Lasix due to acute renal chronic CHF. Also on antibiotics in the form of Zosyn and Methylprednisolone Cultures have been negative so far. Chest x-ray today showed stable chest with persistent bilateral infiltrates. Transferred to medical floor 10/28/2021 Patient stable on 4 L oxygen via nasal cannula and wears BiPAP at night. IV diuretics, antibiotics, and steroids continued. Chest x-ray stable. 10/29/2021 Patient resting in bed comfortably. No actue distress noted. Patient c/o dyspnea on exertion. Stable on 4L NC and BiPAP overnight. Sputum did show evidence of Klebsiella pneumoniae. The Klebsiella is sensitive to Zosyn. 10/30/2021 The patient is doing relatively well. He remains on 4 L nasal cannula. He did use his home CPAP device last night. Prior to that, he was using the [facility] BiPAP machine. The patient does feel improved. His breathing is better. 10/31/21 The patient states he worked with PT yesterday. He was able to get up into the chair with assistance. He is looking forward to working with them again today.The patient states he was able to wear his CPAP for 4-5 hours last night and slept well. He did not need his Restoril. He stated he experience some anxiety yesterday, asked for a Xanax, and stated it helped relax him. He c/o 5/10 neuropathy pain to b/l feet. He stated he already requested a Palmer from the nurse. He states he gets adequate relief with Palmer. Objective - Vital Signs Vital signs: Vital Signs Temp 97.1 F L 11/02/21 07:59 Pulse 76 11/02/21 08:35 Resp 22 11/02/21 07:59 BP 102/59 11/02/21 09:27 Pulse Ox 94 L 11/02/21 07:59 Intake & Output 11/01/21 11/02/21 11/02/21 18:59 06:59 18:59 Intake Total 1133 100 360 Output Total 950 2000 500 Balance 183 -1900 -140 Intake: IV 120 0.9 kvo 20 Piperacillin-Tazobactam 3 100 .375 gm In Sodium Chloride 0.9% 100 ml @ 25 mls/hr IVPB Q8HR [facility] Rx# :[id number] Intake, IV Titration 100 Amount Piperacillin-Tazobactam 3 100 .375 gm In Sodium Chloride 0.9% 100 ml @ 25 mls/hr IVPB Q8HR [facility] Rx# :[id number] Oral 1133 240 Output: Urine 950 2000 500 Other: Voiding Method Indwelling Catheter Indwelling Catheter # Bowel Movements 1 - Exam General: Patient awake alert and oriented x 3. No acute distress. HEENT: Head is atraumatic, normocephalic Neck is supple. Sclerae are clear. Pupils equal, round and reactive to light bilaterally. CV: Heart regular in rate and rhythm positive S1 and S2. No clicks, rubs or murmurs. No JVD. Peripheral pulses equal. 2/4 Lungs: Scattered bilateral rhonchi and expiratory wheezes. No rales or rhonchi. Respirations even and nonlabored. No intercostal retractions.No conversational dyspnea. on 4L NC Abdomen/GI: Soft. Bowel sounds present in all 4 quadrants. Bowel sounds normoactive. No abdominal tenderness. : Shahid draining clear yellow urine Musculoskeletal/ Extremities: Generalized weakness. No tenderness on muscular exam. No ecchymosis. Trace edema to b/l LE - improving Vascular: Radial pulses equal. 2/4. Skin: No rash. Neurologic:No focal deficits. Psychiatric: Appropriate mood and affect. - Labs CBC & Chem 7: 11/02/21 09:02 11/02/21 09:02 Labs: Abnormal Lab Results - Last 24 Hours (Table) 11/01/21 11/01/21 11/01/21 Range/Units 11:37 16:24 20:19 WBC (3.8-10.6) k/uL RBC (4.30-5.90) m/uL Hgb (13.0-17.5) gm/dL Hct (39.0-53.0) % MCHC (31.0-37.0) g/dL RDW (11.5-15.5) % Plt Count (150-450) k/uL Neutrophils # (1.3-7.7) k/uL Carbon Dioxide (22-30) mmol/L BUN (9-20) mg/dL Glucose (74-99) mg/dL POC Glucose (mg/dL) 116 H 249 H 207 H (75-99) mg/dL 11/02/21 11/02/21 11/02/21 Range/Units 05:45 09:02 09:02 WBC 13.2 H (3.8-10.6) k/uL RBC 3.57 L (4.30-5.90) m/uL Hgb 10.4 L (13.0-17.5) gm/dL Hct 34.8 L (39.0-53.0) % MCHC 29.8 L (31.0-37.0) g/dL RDW 19.4 H (11.5-15.5) % Plt Count 134 L (150-450) k/uL Neutrophils # 11.3 H (1.3-7.7) k/uL Carbon Dioxide 32 H (22-30) mmol/L BUN 35 H (9-20) mg/dL Glucose 106 H (74-99) mg/dL POC Glucose (mg/dL) 103 H (75-99) mg/dL Microbiology - Last 24 Hours (Table) 10/26/21 11:43 Blood Culture - Final Blood No Growth after 144 hours 10/26/21 11:43 Blood Culture - Final Blood No Growth after 144 hours Assessment and Plan Plan: Symptoms * Pain - Neuropathic pain to bilateral feet currently 03/23. He states the Palmer he has ordered makes it tolerable 10/21. Also on Tylenol PRN and scheduled Lyrica * Fatigue/weakness - Feels as if he has more energy than yesterday, still feeling weak. Asking to get up into chair. Working with PT * SOB - on 4LNC, denies sob at rest. c/o ST. Currently on Duoneb neb scheduled and prn, Sybmicort, Zosyn for pna, and diuretics for CHF - Aldactone and Lasix. Prednisone for COPD. Pt states wob has improved. CPAP at HS. * Insomnia - Sleeping well and has not needed to take Restoril * N/V - denies * Anxiety/Depression - c/o anxiety last night, took prn Xanax with relief. Also taking Zyprexa and Lexapro. * Confusion/agitation - none * Appetite/dysphagia/weight loss - Patient states he has a good appetite and eating 90% of all meals. . He denies any dysphagia. * Constipation - LBM yesterday, patient feels as if they are small and does not get adequate relief. Taking Colace daily. Added PRN Miralax. * Incontinence - denies - currently has shahid * Itch - denies Goal/Plan - The patient is planning on returning to rehab upon discharge. Then eventually transitioning back home with his . OP palliative care information provided. Code Status Patient wishes to remain a full code. Time with Patient: Less than 30
[2021-11-02 10:53] LABS: Glucose,Whole Blood 139 mg/dL (75-99)
--- NOTE | 2021-11-02 12:41 | P.PN ---
Subjective Progress Note Date: 11/02/21 Principal diagnosis: COPD exacerbation. Reevaluated today on 10/27/2021, patient remains in the ICU, he is now on nasal cannula, he is on 4 L with O2 sats of 96%. At night he was on BiPAP at IPAP of 10 and EPAP of 5 and FiO2 of 36%. Patient is being treated for pneumonia, and p ossibly acute on chronic diastolic congestive heart failure. He has been on diuretics, has been receiving Zosyn for presumptive aspiration pneumonia. Clinically the patient is feeling better, breathing a lot easier, he does have history of alcohol abuse, and he is on [facility] protocol for potential alcohol withdrawal.CBC is relatively normal left was abnormal renal profile is normal. Chest x-ray continues to show bilateral infiltrates/interstitial edema is also possible Reevaluated today on 10/28/2021, patient is now on the regular medical floor, seems to be doing better, he is on 4 L nasal cannula, O2 sats is 92%. Patient is still receiving treatment for acute on chronic diastolic congestive heart failure, and possibly underlying pneumonia. Patient may have developed aspiration pneumonia based on the clinical history. And he is still on Zosyn. Clinically improving. Labs are unremarkable including a relatively normal CBC except hemoglobin of 8.9 electrolytes are normal renal profile is normal. Patient clearly stated to me that he is feeling better since admission. Chest x-ray continues to show bilateral interstitial infiltrates/edema at the bases difficult to tell how much of it is really interstitial edema or pneumonia. Progress note dated 10/29/2021. 76-year-old male who was in the intensive care unit, but is currently seen on the general medical floor, room 368. Currently, he's on 4 L nasal cannula. The patient will use his home CPAP tonight. Last night, use a hospital BiPAP system, with settings of 10 and 5 and 36%. He's feeling much improved. His shortness of breath is much improved. He is currently not receiving any IV fluids. I have includes a white count 9.6, hemoglobin 8.9, hematocrit 30.3, and platelet count 186,000. Sodium 138, potassium 4, chlorides 99, CO2 33, BUN 31, and creatinine 0.66. Chest x-ray shows some patchy densities in the bilateral lower lobes, with blunting of the costophrenic angles. Progress note dated 10/30/2021. A 76-year-old male, again seen in room 368. The patient is doing relatively well. He remains on 4 L nasal cannula. He did use his home CPAP device last night. [facility] The patient does feel improved. His breathing is better. Currently laboratory data includes a white count of 10.5, hemoglobin 9.5, hematocrit 32.5, and platelet count 172,000. Sodium 137, potassium 4.3, chlorides 99, CO2 30, BUN 34, and creatinine 0.7. Chest x-ray shows bilateral pleural effusions, which are small, with bilateral infiltrates, which are stable. Progress note dated 10/31/2021. 76-year-old male, again seen in room 368. The patient's doing relatively well. He did use his CPAP device last night for about 4-5 hours. At 2 nights in a row. The patient is feeling improved. Lab data today includes a white count of 11, hemoglobin 9.7, hematocrit 33.4, and platelet count 171,000. Sodium 137, potassium 4.3, chlorides 98, CO2 33, BUN 36, and creatinine 0.76. Sputum did reveal evidence of Klebsiella pneumoniae. Chest x-ray shows bilateral infiltrates, and pleural effusions, and also changes of COPD, and pulmonary fibrosis. Progress note dated 11/01/2021. 76-year-old male, again seen in room 368. Sitting up in bed. He is wearing O2. The patient is complaining about being a bit more short of breath today. He's not recently received a breathing treatment. He is using his home CPAP at nighttime. He apparently uses about 4 hours last night. Sputum did reveal evidence of Klebsiella pneumoniae. No new labs today to report. Chest x-ray from October 30 was reviewed. Progress note dated 11/02/2021. The patient is again seen today in room 368. He is resting comfortably. He's on 4 L nasal cannula. He's not receiving any IV fluids. He remains on Zosyn for his Klebsiella pneumoniae pneumonia. He is feeling better today. We did request a chest x-ray today. White count 13.2, hemoglobin 10.4, hematocrit 34.8, and platelet count 134,000. Sodium 137, potassium 3.8, chlorides 98, CO2 32, BUN 35, and creatinine 0.79. Chest x-ray reveals bilateral infiltrates, consistent with either fluid overload/and/or pneumonia. The chest x-ray is stable. Objective - Vital Signs Vital signs: Vital Signs Temp 97.1 F L 11/02/21 07:59 Pulse 76 11/02/21 11:54 Resp 22 11/02/21 07:59 BP 102/59 11/02/21 09:27 Pulse Ox 94 L 11/02/21 07:59 Intake & Output 11/01/21 11/02/21 11/02/21 18:59 06:59 18:59 Intake Total 1133 100 360 Output Total 950 2000 500 Balance 183 -1900 -140 Intake: IV 120 0.9 kvo 20 Piperacillin-Tazobactam 3 100 .375 gm In Sodium Chloride 0.9% 100 ml @ 25 mls/hr IVPB Q8HR [facility] Rx# :[id number] Intake, IV Titration 100 Amount Piperacillin-Tazobactam 3 100 .375 gm In Sodium Chloride 0.9% 100 ml @ 25 mls/hr IVPB Q8HR [facility] Rx# :[id number] Oral 1133 240 Output: Urine 950 2000 500 Other: Voiding Method Indwelling Catheter Indwelling Catheter Indwelling Catheter # Bowel Movements 1 - Exam No acute distress, oriented 3. Resting comfortably in bed. Currently on 4 L nasal cannula. No conversational dyspnea or use of accessory muscles. HEENT examination is grossly unremarkable. Neck supple. Full range of motion. No adenopathy thyromegaly or neck vein distention. Cardiovascular examination reveals regular rhythm rate. S1-S2 normal. No S3 or S4. No discernible murmur noted. Heart rate 76 bpm. Lungs reveal scattered bilateral rhonchi. No wheezes. No crackles. Breath sounds equal bilaterally. Saturations are 94% on 4 L. Abdomen soft bowel sounds are heard. No masses or tenderness. Extremities are intact. No cyanosis clubbing or edema. Skin is without rash or lesion. Neurologic examination is brief but nonfocal. - Labs CBC & Chem 7: 11/02/21 09:02 11/02/21 09:02 Labs: Abnormal Lab Results - Last 24 Hours (Table) 11/01/21 11/01/21 11/02/21 Range/Units 16:24 20:19 05:45 WBC (3.8-10.6) k/uL RBC (4.30-5.90) m/uL Hgb (13.0-17.5) gm/dL Hct (39.0-53.0) % MCHC (31.0-37.0) g/dL RDW (11.5-15.5) % Plt Count (150-450) k/uL Neutrophils # (1.3-7.7) k/uL Carbon Dioxide (22-30) mmol/L BUN (9-20) mg/dL Glucose (74-99) mg/dL POC Glucose (mg/dL) 249 H 207 H 103 H (75-99) mg/dL 11/02/21 11/02/21 11/02/21 Range/Units 09:02 09:02 10:52 WBC 13.2 H (3.8-10.6) k/uL RBC 3.57 L (4.30-5.90) m/uL Hgb 10.4 L (13.0-17.5) gm/dL Hct 34.8 L (39.0-53.0) % MCHC 29.8 L (31.0-37.0) g/dL RDW 19.4 H (11.5-15.5) % Plt Count 134 L (150-450) k/uL Neutrophils # 11.3 H (1.3-7.7) k/uL Carbon Dioxide 32 H (22-30) mmol/L BUN 35 H (9-20) mg/dL Glucose 106 H (74-99) mg/dL POC Glucose (mg/dL) 139 H (75-99) mg/dL Microbiology - Last 24 Hours (Table) 10/26/21 11:43 Blood Culture - Final Blood No Growth after 144 hours 10/26/21 11:43 Blood Culture - Final Blood No Growth after 144 hours Assessment and Plan Assessment: Acute on chronic hypoxemic respiratory failure, secondary to COPD exacerbation, and possible aspiration pneumonia. Klebsiella pneumoniae pneumonia, currently on Zosyn. Acute on chronic diastolic CHF. Unresponsiveness, resolved, secondary to metabolic encephalopathy. Chronic atrial fibrillation. History of hypertension. History of previous myocardial infarction. History of obstructive sleep apnea syndrome, noncompliant with CPAP. History of alcohol abuse. History of previous tobacco use. History of CVA/TIA. Plan: Plan dated 10/29/2021. The patient appears to be doing much better. The patient's currently on 4 L nasal cannula. The patient's awake and alert. Patient plans to use his home CPAP device tonight. Last night, he used IPAP, with settings of 10/5 and 36%. He's not receiving any IV fluids. Labs, x-rays, and medications are all reviewed. He continues on GI and DVT prophylaxis, and antibiotics in the form of Zosyn. Prognosis is guarded. We will continue to follow the patient make recommendations where appropriate. Plan dated 10/30/2021. The patient appears to be doing better. He remains on 4 L. He does use his home CPAP device last night. He used to for about 5 hours or so. He seemed to tolerate it pretty well. Labs, x-rays, and medications are reviewed. The patient appears to be doing better. His breathing is improved. He remains on Zosyn. We will continue to follow the patient make recommendations were appropriate. He continues on GI and DVT prophylaxis. Sputum did show evidence of Klebsiella pneumoniae. The Klebsiella is sensitive to Zosyn. Plan dated 10/31/2021. The patient seems to be doing better. He's currently on 4 L. His sputum from the 16th was positive for Klebsiella pneumoniae. He remains on Zosyn. He continues on GI prophylaxis. The patient is using his home CPAP device at nighttime. He used it for about 4-5 hours last night. We will continue to fo llow the patient and make recommendations where appropriate. His labs, x-rays, and medications are all reviewed. Plan dated 11/01/2021. The patient is currently on 4 L. His saturations are 94-95%. The patient is currently on Zosyn for Klebsiella pneumoniae pneumonia. He continues on GI and DVT prophylaxis. He is using his home CPAP device. I've asked him to try to use it more more each night. Labs, x-rays, and medications are all reviewed. Prognosis is guarded. We will continue to follow make recommendations where appropriate. Plan dated 11/02/2021. Currently, the patient's on 4 L nasal cannula. Saturations are 94%. He remains on Zosyn, for Klebsiella pneumoniae pneumonia. He gets GI and DVT prophylaxis. He continues to use his home CPAP device. Clinically, he is much more stable and feels better. Chest x-ray is relatively stable. We will continue to follow the patient and make recommendations where appropriate. Possible discharge early next week back to the assisted. Time with Patient: Less than 30
[2021-11-02 16:48] LABS: Glucose,Whole Blood 190 mg/dL (75-99)
[2021-11-02] MEDS: RIVAROXABAN 20 MG TAB PO SCH (16:57)
[2021-11-02 20:21] LABS: Glucose,Whole Blood 233 mg/dL (75-99)
[2021-11-02] MEDS: OLANZapine 2.5 MG TAB PO SCH (20:40)
[2021-11-02] MEDS: METOPROLOL SUCCINATE (ER) 50 MG TAB.ER.24H PO SCH (20:40)
[2021-11-02] MEDS: ESCITALOPRAM 20 MG TAB PO SCH (20:40)
[2021-11-02] MEDS: TAMSULOSIN 0.4 MG CAP.ER.24H PO SCH (20:40)
[2021-11-02] MEDS: PRAVASTATIN SODIUM 80 MG TAB PO SCH (20:40)
[2021-11-03] MEDS: HYDROcodone/APAP 7.5-325MG 1 EACH TAB PO PRN ×3 (00:45→17:03)
[2021-11-03 06:16] LABS: Glucose,Whole Blood 101 mg/dL (75-99)
[2021-11-03] MEDS: INSULIN ASPART (NovoLOG) 100 UNIT/ML VIAL SQ SCH ×4 (06:36→21:51)
[2021-11-03] MEDS: PANTOPRAZOLE 40 MG TABLET PO SCH (06:38)
[2021-11-03] MEDS: FERROUS SULFATE 325 MG TAB PO SCH ×2 (06:38→16:34)
[2021-11-03] MEDS: IPRATROPIUM-ALBUTEROL 3 ML NEB INHALATION SCH ×4 (08:35→20:45)
[2021-11-03] MEDS: SYMBICORT 160-4.5 MCG INHALER INHALATION SCH ×2 (08:35→20:44)
[2021-11-03] MEDS: FUROSEMIDE 40 MG TAB PO SCH ×2 (08:51→16:34)
[2021-11-03] MEDS: METOPROLOL SUCCINATE (ER) 100 MG TAB.ER.24H PO SCH (08:51)
[2021-11-03] MEDS: DOCUSATE 100 MG CAP PO SCH ×2 (08:51→21:51)
[2021-11-03] MEDS: ISOSORBIDE MONONITRATE ER 60 MG TAB.ER.24H PO SCH (08:51)
[2021-11-03] MEDS: PREGABALIN 100 MG CAP PO SCH ×3 (08:51→21:50)
[2021-11-03] MEDS: predniSONE 20 MG TAB PO SCH (08:51)
[2021-11-03] MEDS: POTASSIUM CHLORIDE ER 20 MEQ TAB.ER PO SCH ×2 (08:51→21:50)
[2021-11-03] MEDS: SPIRONOLACTONE 25 MG TAB PO SCH (08:51)
[2021-11-03] MEDS: CHOLECALCIFEROL 25 MCG (1000 IU) TABLET PO SCH (08:51)
--- NOTE | 2021-11-03 10:04 | P.PN ---
Subjective Progress Note Date: 11/01/21 Patient is a 76-year-old male with a known history of atrial fibrillation on anticoagulation with Xarelto, chronic CHF diastolic function, COPD, history of CVA/TIA with residual right-sided weakness, chronic hypoxic respiratory failure on oxygen at 4 L via nasal cannula, pulmonary fibrosis, obstructive sleep apnea,, GERD, hearing disorder/deafness, hypertension, hyperlipidemia, history of [place], CAD status post CABG and other multiple medical problems including previous history of smoking presents to ER with complaints of worsening shortness of breath. Patient was unresponsive and was in agonal breathing when he presented to ER. He was placed on CPAP by EMS and transition to BiPAP in the ER. Patient was transferred to MICU. Chest x-ray showed COPD with bilateral infiltrate and pleural effusion. Cardiomegaly. EKG showed atrial fibrillation with rapid ventricular rate heart rate 120 Laboratory data showed WBC 17.0 hemoglobin 10.8 and platelets 301 ABG showed pH of 7.4 PCO2 55 PO2 97 Sodium 137 potassium 3.6 chloride 96 bicarbonate 31 BUN 21 creatinine 1.04 Lactic acid 3.7 Troponin 0.153 proBNP 3470 Urinalysis showed cloudy with 1+ protein and a small blood and small leukocyte esterase RBCs 9 and WBC is 8. 10/27/2021 Patient is currently in the MICU. Currently transitioning to oxygen via nasal cannula at 4 L. Patient was BiPAP overnight. Patient is being continued IV Lasix due to acute renal chronic CHF. Also on antibiotics in the form of Zosyn. Continued on methylprednisolone as well. Cultures have been negative so far. Chest x-ray today showed stable chest with persistent bilateral infiltrates. Laboratory data showed WBC 10.7, hemoglobin 9.5 and platelets 244 BUN 21 creat inine 0.68 and bicarb level is 36. Blood sugar is 175 albumin 3.0 10/28/2021 Patient is currently resting in bed. Awake alert and oriented x3. Currently on 4 L oxygen via nasal cannula. Patient was transferred to medical floor yesterday. Was using BiPAP last night. Otherwise patient is being continued IV diuretics and will be changed to by mouth Lasix from tomorrow. Patient is also on IV antibiotics and IV steroids. Chest x-ray today showed stable chest. Patient has been afebrile. Laboratory data showed WBC 11.2 hemoglobin 8.9 and platelets 210 Sodium 134 potassium 3.9 chloride 94 bicarbonate 32 BUN 28 and creatinine 0.74 and calcium 8.1. Pulmonary and cardiology is on board. 10/29/2021 Patient is currently in the select care unit. Requiring 4 L oxygen via nasal cannula as per his home regimen. Awake alert and oriented x3. No complaints of chest pain. Still having shortness of breath and patient is having exertional dyspnea. Otherwise patient is being continued IV steroids and antibiotics in the form of Zosyn. Lasix changed to by mouth 40 mg twice daily. Chest x-ray today showed correlate for possible pneumonia versus edema. There is underlying emphysema and probable scarring interstitial changes and hiatal hernia, aortic aneurysm. Laboratory data showed WBC 11.6 hemoglobin 8.9 platelets 186 BUN 31 and creatinine 0.66 bicarb is 33 sodium 138 and potassium 4.0. Patient does have low TSH and free T4 levels likely due to sick euthyroid. 10/30/2021 10/30/2021 Patient is currently sitting in the recliner. Requiring oxygen at 4 L via nasal cannula. Denies any complaints of worsening shortness of breath. Still having exertional dyspnea and bilateral rhonchi and crackles. Patient did use CPAP last night. No fever no chills. No nausea vomiting or abdominal pain or diarrhea. Chest x-ray today showed bilateral infiltrate and pleural effusion likely superimposed on background of COPD and pulmonary fibrosis stable. Laboratory data showed WBC 10.4 hemoglobin 9.5 and platelets 172 sodium 135 potassium 4.3 BUN 34 and creatinine 0.7 calcium 8.3 blood sugar is 155. Pulmonary is on board. Patient is being current Lasix 40 mg twice daily and Solu-Medrol IV. also on antibiotics in the form of Zosyn. Sputum cultures are growing Mery albicans and Klebsiella pneumonia. Currently maintained on antibiotics the form of Zosyn. 10/31/2021 Patient is currently resting in bed. Denies any complaints of worsening shortness of air. Still requiring 4 L via nasal cannula. Did not use CPAP last night. No complaints of chest pain. No headache or dizziness lightheadedness. PT OT has seen the patient. Laboratory test showed WBC 11.0 hemoglobin 9.7 platelets 171 BUN 36 and creatinine 0.76 and bicarb is 33. Patient is being under antibiotics in the form of Zosyn. IV steroids changed to prednisone and current with Lasix 40 mg twice daily. 11/01/2021 Patient is currently in the telemetry unit. Awake alert and oriented 3. Complaints of shortness of breath which is worse today. No fever no chills. Cough without any sputum production. Patient was able to sit up in the chair this morning. No nausea vomiting or abdominal pain. Able to participate in physical therapy. No headache or dizziness. Sputum culture showed Mery albicans and club saline pneumonia. Patient is on antibiotics in the form of Zosyn. Also on prednisone and Lasix changed to by mouth. Cardiology and pulmonary is on board. Laboratory data reviewed. Current medications reviewed. Objective - Vital Signs Vital signs: Vital Signs Temp 98.7 F 11/01/21 12:00 Pulse 94 11/01/21 12:35 Resp 18 11/01/21 12:00 BP 115/69 11/01/21 12:00 Pulse Ox 95 11/01/21 12:00 Intake & Output 10/31/21 11/01/21 11/01/21 18:59 06:59 18:59 Intake Total 411 001 8394 Output Total 1925 Balance -0023 671 3897 Weight 104.5 kg Intake: Intake, IV Titration 100 Amount Piperacillin-Tazobactam 3 100 .375 gm In Sodium Chloride 0.9% 100 ml @ 25 mls/hr IVPB Q8HR [facility] Rx# :[id number] Oral 120 1133 Output: Urine 1925 Other: Voiding Method Indwelling Catheter Indwelling Catheter # Voids 1 # Bowel Movements 1 1 1 - Exam PHYSICAL EXAMINATION: Patient is lying in the bed comfortably, no acute distress, awake alert and oriented.. HEENT: Normocephalic. Neck is supple. Pupils reactive. Nostrils clear. Oral cavity is moist. Neck reveals no JVD, carotid bruits, or thyromegaly. CHEST EXAMINATION: Trachea is central. Symmetrical expansion. Bibasilar diminished sounds and scattered coarse sounds and crackles. CARDIAC: Normal S1, S2 with no gallops. No murmurs ABDOMEN: Soft. Bowel sounds normal. No organomegaly. No abdominal bruits. Extremities: Bilateral trace edema. No clubbing or cyanosis Neurologically awake, alert, oriented x3 with well-coordinated movements. No focal deficits noted Skin: No rash or skin lesions. Psychiatric: Cooperative. Nonsuicidal Musculoskeletal: No joint swelling or deformity. Normal range of motion. - Labs CBC & Chem 7: 11/02/21 09:02 11/02/21 09:02 Labs: Abnormal Lab Results - Last 24 Hours (Table) 10/31/21 10/31/21 11/01/21 Range/Units 16:35 20:14 04:53 POC Glucose (mg/dL) 151 H 163 H 124 H (75-99) mg/dL 11/01/21 Range/Units 11:37 POC Glucose (mg/dL) 116 H (75-99) mg/dL Microbiology - Last 24 Hours (Table) 10/26/21 11:43 Blood Culture - Final Blood No Growth after 144 hours 10/26/21 11:43 Blood Culture - Final Blood No Growth after 144 hours Assessment and Plan Assessment: Shortness of breath is multifactorial due to acute COPD and CHF exacerbation and pneumonia. Sputum culture showed Mery albicans and Klebsiella pneumonia Acute on chronic hypoxic respiratory failure requiring BiPAP--4L NC Acute COPD exacerbation Acute on chronic CHF with diastolic dysfunction Lactic acidosis 3.7 on admission Mildly elevated troponin level likely due to demand mismatch Chronic hypoxic respiratory failure requiring 4 L oxygen via nasal cannula Chronic atrial fibrillation with rapid ventricular rate on admission History of CVA/TIA with right-sided weakness Coronary disease s/p CABG history History of [place] GERD Hearing disorder/deafness Hypertension Hyperlipidemia Previous history of smoking History of AAA repair Plan: Patient will be continued on antibiotics along with Zosyn. Was given a dose of ceftriaxone azithromycin in the ER. Continue with IV steroids and IV Lasix changed to by mouth.. Transitioned to oxygen via nasal cannula at 4 L. patient was started back on CPAP as per his home settings,. Pulmonary is following. Continue the home medications and follow closely. Prognosis is guarded at this time. Time with Patient: Greater than 30
--- NOTE | 2021-11-03 10:05 | P.PN ---
Subjective Progress Note Date: 11/02/21 Patient is a 76-year-old male with a known history of atrial fibrillation on anticoagulation with Xarelto, chronic CHF diastolic function, COPD, history of CVA/TIA with residual right-sided weakness, chronic hypoxic respiratory failure on oxygen at 4 L via nasal cannula, pulmonary fibrosis, obstructive sleep apnea,, GERD, hearing disorder/deafness, hypertension, hyperlipidemia, history of [place], CAD status post CABG and other multiple medical problems including previous history of smoking presents to ER with complaints of worsening shortness of breath. Patient was unresponsive and was in agonal breathing when he presented to ER. He was placed on CPAP by EMS and transition to BiPAP in the ER. Patient was transferred to MICU. Chest x-ray showed COPD with bilateral infiltrate and pleural effusion. Cardiomegaly. EKG showed atrial fibrillation with rapid ventricular rate heart rate 120 Laboratory data showed WBC 17.0 hemoglobin 10.8 and platelets 301 ABG showed pH of 7.4 PCO2 55 PO2 97 Sodium 137 potassium 3.6 chloride 96 bicarbonate 31 BUN 21 creatinine 1.04 Lactic acid 3.7 Troponin 0.153 proBNP 3470 Urinalysis showed cloudy with 1+ protein and a small blood and small leukocyte esterase RBCs 9 and WBC is 8. 10/27/2021 Patient is currently in the MICU. Currently transitioning to oxygen via nasal cannula at 4 L. Patient was BiPAP overnight. Patient is being continued IV Lasix due to acute renal chronic CHF. Also on antibiotics in the form of Zosyn. Continued on methylprednisolone as well. Cultures have been negative so far. Chest x-ray today showed stable chest with persistent bilateral infiltrates. Laboratory data showed WBC 10.7, hemoglobin 9.5 and platelets 244 BUN 21 creat inine 0.68 and bicarb level is 36. Blood sugar is 175 albumin 3.0 10/28/2021 Patient is currently resting in bed. Awake alert and oriented x3. Currently on 4 L oxygen via nasal cannula. Patient was transferred to medical floor yesterday. Was using BiPAP last night. Otherwise patient is being continued IV diuretics and will be changed to by mouth Lasix from tomorrow. Patient is also on IV antibiotics and IV steroids. Chest x-ray today showed stable chest. Patient has been afebrile. Laboratory data showed WBC 11.2 hemoglobin 8.9 and platelets 210 Sodium 134 potassium 3.9 chloride 94 bicarbonate 32 BUN 28 and creatinine 0.74 and calcium 8.1. Pulmonary and cardiology is on board. 10/29/2021 Patient is currently in the [facility] care unit. Requiring 4 L oxygen via nasal cannula as per his home regimen. Awake alert and oriented x3. No complaints of chest pain. Still having shortness of breath and patient is having exertional dyspnea. Otherwise patient is being continued IV steroids and antibiotics in the form of Zosyn. Lasix changed to by mouth 40 mg twice daily. Chest x-ray today showed correlate for possible pneumonia versus edema. There is underlying emphysema and probable scarring interstitial changes and hiatal hernia, aortic aneurysm. Laboratory data showed WBC 11.6 hemoglobin 8.9 platelets 186 BUN 31 and creatinine 0.66 bicarb is 33 sodium 138 and potassium 4.0. Patient does have low TSH and free T4 levels likely due to sick euthyroid. 10/30/2021 10/30/2021 Patient is currently sitting in the recliner. Requiring oxygen at 4 L via nasal cannula. Denies any complaints of worsening shortness of breath. Still having exertional dyspnea and bilateral rhonchi and crackles. Patient did use CPAP last night. No fever no chills. No nausea vomiting or abdominal pain or diarrhea. Chest x-ray today showed bilateral infiltrate and pleural effusion likely superimposed on background of COPD and pulmonary fibrosis stable. Laboratory data showed WBC 10.4 hemoglobin 9.5 and platelets 172 sodium 135 potassium 4.3 BUN 34 and creatinine 0.7 calcium 8.3 blood sugar is 155. Pulmonary is on board. Patient is being current Lasix 40 mg twice daily and Solu-Medrol IV. also on antibiotics in the form of Zosyn. Sputum cultures are growing Mery albicans and Klebsiella pneumonia. Currently maintained on antibiotics the form of Zosyn. 10/31/2021 Patient is currently resting in bed. Denies any complaints of worsening shortness of air. Still requiring 4 L via nasal cannula. Did not use CPAP last night. No complaints of chest pain. No headache or dizziness lightheadedness. PT OT has seen the patient. Laboratory test showed WBC 11.0 hemoglobin 9.7 platelets 171 BUN 36 and creatinine 0.76 and bicarb is 33. Patient is being under antibiotics in the form of Zosyn. IV steroids changed to prednisone and current with Lasix 40 mg twice daily. 11/01/2021 Patient is currently in the telemetry unit. Awake alert and oriented 3. Complaints of shortness of breath which is worse today. No fever no chills. Cough without any sputum production. Patient was able to sit up in the chair this morning. No nausea vomiting or abdominal pain. Able to participate in physical therapy. No headache or dizziness. Sputum culture showed Mery albicans and club saline pneumonia. Patient is on antibiotics in the form of Zosyn. Also on prednisone and Lasix changed to by mouth. Cardiology and pulmonary is on board. Laboratory data reviewed. 11/02/2021 Patient is currently resting in the bed. Awake alert and oriented 3. Breathing status is slightly better today. No complaints of chest pain. No nausea vomiting or abdominal pain or diarrhea. Patient has been afebrile. Continued on antibiotics in the form of Zosyn and also on oral Lasix and predn isone 40 mg daily. Patient is also an aunt atrial fibrillation with xarelto. Laboratory data showed WBC 13.2 hemoglobin 10.4 and platelets 134 Sodium 137 potassium 3.8 chloride 98 bicarb is 32 BUN 35 and creatinine 0.79 and blood sugar is 106 Current medications reviewed. Objective - Vital Signs Vital signs: Vital Signs Temp 97.5 F L 11/02/21 20:00 Pulse 78 11/02/21 20:37 Resp 18 11/02/21 20:00 BP 100/57 11/02/21 20:00 Pulse Ox 98 11/02/21 20:00 Intake & Output 11/02/21 11/02/21 11/03/21 06:59 18:59 06:59 Intake Total 100 1100 10 Output Total 1999 2150 750 Balance -1900 -1050 -740 Intake: IV 260 10 0.9 kvo 60 Invasive Line 3 10 Piperacillin-Tazobactam 3 200 .375 gm In Sodium Chloride 0.9% 100 ml @ 25 mls/hr IVPB Q8HR [facility] Rx# :[id number] Intake, IV Titration 100 Amount Piperacillin-Tazobactam 3 100 .375 gm In Sodium Chloride 0.9% 100 ml @ 25 mls/hr IVPB Q8HR [facility] Rx# :[id number] Oral 840 Output: Urine 1999 2150 750 Other: Voiding Method Indwelling Catheter Indwelling Catheter Indwelling Catheter - Exam PHYSICAL EXAMINATION: Patient is lying in the bed comfortably, no acute distress, awake alert and orie nted.. HEENT: Normocephalic. Neck is supple. Pupils reactive. Nostrils clear. Oral cavity is moist. Neck reveals no JVD, carotid bruits, or thyromegaly. CHEST EXAMINATION: Trachea is central. Symmetrical expansion. Bibasilar diminished sounds and scattered coarse sounds and crackles. CARDIAC: Normal S1, S2 with no gallops. No murmurs ABDOMEN: Soft. Bowel sounds normal. No organomegaly. No abdominal bruits. Extremities: Bilateral trace edema. No clubbing or cyanosis Neurologically awake, alert, oriented x3 with well-coordinated movements. No focal deficits noted Skin: No rash or skin lesions. Psychiatric: Cooperative. Nonsuicidal Musculoskeletal: No joint swelling or deformity. Normal range of motion. - Labs CBC & Chem 7: 11/02/21 09:02 11/02/21 09:02 Labs: Abnormal Lab Results - Last 24 Hours (Table) 11/02/21 11/02/21 11/02/21 Range/Units 05:45 09:02 09:02 WBC 13.2 H (3.8-10.6) k/uL RBC 3.57 L (4.30-5.90) m/uL Hgb 10.4 L (13.0-17.5) gm/dL Hct 34.8 L (39.0-53.0) % MCHC 29.8 L (31.0-37.0) g/dL RDW 19.4 H (11.5-15.5) % Plt Count 134 L (150-450) k/uL Neutrophils # 11.3 H (1.3-7.7) k/uL Carbon Dioxide 32 H (22-30) mmol/L BUN 35 H (9-20) mg/dL Glucose 106 H (74-99) mg/dL POC Glucose (mg/dL) 103 H (75-99) mg/dL 11/02/21 11/02/21 11/02/21 Range/Units 10:52 16:46 20:19 WBC (3.8-10.6) k/uL RBC (4.30-5.90) m/uL Hgb (13.0-17.5) gm/dL Hct (39.0-53.0) % MCHC (31.0-37.0) g/dL RDW (11.5-15.5) % Plt Count (150-450) k/uL Neutrophils # (1.3-7.7) k/uL Carbon Dioxide (22-30) mmol/L BUN (9-20) mg/dL Glucose (74-99) mg/dL POC Glucose (mg/dL) 139 H 190 H 233 H (75-99) mg/dL Assessment and Plan Assessment: Shortness of breath is multifactorial due to acute COPD and CHF exacerbation and pneumonia. Sputum culture showed Mery albicans and Klebsiella pneumonia Acute on chronic hypoxic respiratory failure requiring BiPAP--4L NC Acute COPD exacerbation Acute on chronic CHF with diastolic dysfunction Lactic acidosis 3.7 on admission Mildly elevated troponin level likely due to demand mismatch Chronic hypoxic respiratory failure requiring 4 L oxygen via nasal cannula Chronic atrial fibrillation with rapid ventricular rate on admission History of CVA/TIA with right-sided weakness Coronary disease s/p CABG history History of [place] GERD Hearing disorder/deafness Hypertension Hyperlipidemia Previous history of smoking History of AAA repair Plan: Patient will be continued on antibiotics along with Zosyn. Was given a dose of ceftriaxone azithromycin in the ER. Continue with IV steroids and IV Lasix changed to by mouth.. Transitioned to oxygen via nasal cannula at 4 L. patient was started back on CPAP as per his home settings,. Pulmonary is following. Continue the home medications and follow closely. Prognosis is guarded at this time. Time with Patient: Greater than 30
[2021-11-03 11:36] LABS: Glucose,Whole Blood 213 mg/dL (75-99)
--- NOTE | 2021-11-03 14:45 | P.PN ---
Subjective Progress Note Date: 11/03/21 Principal diagnosis: COPD exacerbation. Reevaluated today on 10/27/2021, patient remains in the ICU, he is now on nasal cannula, he is on 4 L with O2 sats of 96%. At night he was on BiPAP at IPAP of 10 and EPAP of 5 and FiO2 of 36%. Patient is being treated for pneumonia, and p ossibly acute on chronic diastolic congestive heart failure. He has been on diuretics, has been receiving Zosyn for presumptive aspiration pneumonia. Clinically the patient is feeling better, breathing a lot easier, he does have history of alcohol abuse, and he is on [facility] protocol for potential alcohol withdrawal.CBC is relatively normal left was abnormal renal profile is normal. Chest x-ray continues to show bilateral infiltrates/interstitial edema is also possible Reevaluated today on 10/28/2021, patient is now on the regular medical floor, seems to be doing better, he is on 4 L nasal cannula, O2 sats is 92%. Patient is still receiving treatment for acute on chronic diastolic congestive heart failure, and possibly underlying pneumonia. Patient may have developed aspiration pneumonia based on the clinical history. And he is still on Zosyn. Clinically improving. Labs are unremarkable including a relatively normal CBC except hemoglobin of 8.9 electrolytes are normal renal profile is normal. Patient clearly stated to me that he is feeling better since admission. Chest x-ray continues to show bilateral interstitial infiltrates/edema at the bases difficult to tell how much of it is really interstitial edema or pneumonia. Progress note dated 10/29/2021. 76-year-old male who was in the intensive care unit, but is currently seen on the general medical floor, room 368. Currently, he's on 4 L nasal cannula. The patient will use his home CPAP tonight. Last night, use a hospital BiPAP system, with settings of 10 and 5 and 36%. He's feeling much improved. His shortness of breath is much improved. He is currently not receiving any IV fluids. I have includes a white count 9.6, hemoglobin 8.9, hematocrit 30.3, and platelet count 186,000. Sodium 138, potassium 4, chlorides 99, CO2 33, BUN 31, and creatinine 0.66. Chest x-ray shows some patchy densities in the bilateral lower lobes, with blunting of the costophrenic angles. Progress note dated 10/30/2021. A 76-year-old male, again seen in room 368. The patient is doing relatively well. He remains on 4 L nasal cannula. He did use his home CPAP device last night. Prior to that, he was using the [facility] BiPAP machine. The patient does feel improved. His breathing is better. Currently laboratory data includes a white count of 10.5, hemoglobin 9.5, hematocrit 32.5, and platelet count 172,000. Sodium 137, potassium 4.3, chlorides 99, CO2 30, BUN 34, and creatinine 0.7. Chest x-ray shows bilateral pleural effusions, which are small, with bilateral infiltrates, which are stable. Progress note dated 10/31/2021. 76-year-old male, again seen in room 368. The patient's doing relatively well. He did use his CPAP device last night for about 4-5 hours. At 2 nights in a row. The patient is feeling improved. Lab data today includes a white count of 11, hemoglobin 9.7, hematocrit 33.4, and platelet count 171,000. Sodium 137, potassium 4.3, chlorides 98, CO2 33, BUN 36, and creatinine 0.76. Sputum did reveal evidence of Klebsiella pneumoniae. Chest x-ray shows bilateral infiltrates, and pleural effusions, and also changes of COPD, and pulmonary fibrosis. Progress note dated 11/01/2021. 76-year-old male, again seen in room 368. Sitting up in bed. He is wearing O2. The patient is complaining about being a bit more short of breath today. He's not recently received a breathing treatment. He is using his home CPAP at nighttime. He apparently uses about 4 hours last night. Sputum did reveal evidence of Klebsiella pneumoniae. No new labs today to report. Chest x-ray from October 30 was reviewed. Progress note dated 11/02/2021. The patient is again seen today in room 368. He is resting comfortably. He's on 4 L nasal cannula. He's not receiving any IV fluids. He remains on Zosyn for his Klebsiella pneumoniae pneumonia. He is feeling better today. We did request a chest x-ray today. White count 13.2, hemoglobin 10.4, hematocrit 34.8, and platelet count 134,000. Sodium 137, potassium 3.8, chlorides 98, CO2 32, BUN 35, and creatinine 0.79. Chest x-ray reveals bilateral infiltrates, consistent with either fluid overload/and/or pneumonia. The chest x-ray is stable. Progress note dated 11/03/2021. The patient is again seen in room 368. The patient is getting a breathing treatment. He remains on 4 L nasal cannula. He's not receiving any IV fluids. The patient is being treated for Klebsiella pneumoniae pneumonia. Clinically, he is feeling better. He continues to use his home CPAP device at nighttime. No new laboratory data today. The chest x-ray from yesterday was reviewed. Findings are stable. Objective - Vital Signs Vital signs: Vital Signs Temp 97.2 F L 11/03/21 12:32 Pulse 84 11/03/21 12:32 Resp 18 11/03/21 13:45 BP 110/68 11/03/21 12:32 Pulse Ox 96 11/03/21 12:32 Intake & Output 11/02/21 11/03/21 11/03/21 18:59 06:59 18:59 Intake Total 1100 10 716 Output Total 2150 2330 Balance -1050 -2320 716 Weight 98 kg Intake: IV 260 10 0.9 kvo 60 Invasive Line 3 10 Piperacillin-Tazobactam 3 200 .375 gm In Sodium Chloride 0.9% 100 ml @ 25 mls/hr IVPB Q8HR [facility] Rx# :[id number] Oral 840 716 Output: Urine 2150 2330 Other: Voiding Method Indwelling Catheter Indwelling Catheter Indwelling Catheter - Exam No acute distress, oriented 3. Resting comfortably in bed. Currently on 4 L nasal cannula. No conversational dyspnea or use of accessory muscles. HEENT examination is grossly unremarkable. Neck supple. Full range of motion. No adenopathy thyromegaly or neck vein distention. Cardiovascular examination reveals regular rhythm rate. S1-S2 normal. No S3 or S4. No discernible murmur noted. Heart rate 72 bpm. Lungs reveal scattered bilateral rhonchi. No wheezes. No crackles. Breath sounds equal bilaterally. Saturations are 96% on 4 L. Abdomen soft bowel sounds are heard. No masses or tenderness. Extremities are intact. No cyanosis clubbing or edema. Skin is without rash or lesion. Neurologic examination is brief but nonfocal. - Labs CBC & Chem 7: 11/02/21 09:02 11/02/21 09:02 Labs: Abnormal Lab Results - Last 24 Hours (Table) 11/02/21 11/02/21 11/03/21 Range/Units 16:46 20:19 06:16 POC Glucose (mg/dL) 190 H 233 H 101 H (75-99) mg/dL 11/03/21 Range/Units 11:34 POC Glucose (mg/dL) 213 H (75-99) mg/dL Assessment and Plan Assessment: Acute on chronic hypoxemic respiratory failure, secondary to COPD exacerbation, and possible aspiration pneumonia. Klebsiella pneumoniae pneumonia, currently on Zosyn. Acute on chronic diastolic CHF. Unresponsiveness, resolved, secondary to metabolic encephalopathy. Chronic atrial fibrillation. History of hypertension. History of previous myocardial infarction. History of obstructive sleep apnea syndrome, noncompliant with CPAP. History of alcohol abuse. History of previous tobacco use. History of CVA/TIA. Plan: Plan dated 10/29/2021. The patient appears to be doing much better. The patient's currently on 4 L nasal cannula. The patient's awake and alert. Patient plans to use his home CPAP device tonight. Last night, he used IPAP, with settings of 10/5 and 36%. He's not receiving any IV fluids. Labs, x-rays, and medications are all reviewed. He continues on GI and DVT prophylaxis, and antibiotics in the form of Zosyn. Prognosis is guarded. We will continue to follow the patient make recommendations where appropriate. Plan dated 10/30/2021. The patient appears to be doing better. He remains on 4 L. He does use his home CPAP device last night. He used to for about 5 hours or so. He seemed to tolerate it pretty well. Labs, x-rays, and medications are reviewed. The patient appears to be doing better. His breathing is improved. He remains on Zosyn. We will continue to follow the patient make recommendations were appropriate. He continues on GI and DVT prophylaxis. Sputum did show evidence of Klebsiella pneumoniae. The Klebsiella is sensitive to Zosyn. Plan dated 10/31/2021. The patient seems to be doing better. He's currently on 4 L. His sputum from the 16th was positive for Klebsiella pneumoniae. He remains on Zosyn. He continues on GI prophylaxis. The patient is using his home CPAP device at nighttime. He used it for about 4-5 hours last night. We will continue to f ollow the patient and make recommendations where appropriate. His labs, x-rays, and medications are all reviewed. Plan dated 11/01/2021. The patient is currently on 4 L. His saturations are 94-95%. The patient is currently on Zosyn for Klebsiella pneumoniae pneumonia. He continues on GI and DVT prophylaxis. He is using his home CPAP device. I've asked him to try to use it more more each night. Labs, x-rays, and medications are all reviewed. Prognosis is guarded. We will continue to follow make recommendations where appropriate. Plan dated 11/02/2021. Currently, the patient's on 4 L nasal cannula. Saturations are 94%. He remains on Zosyn, for Klebsiella pneumoniae pneumonia. He gets GI and DVT prophylaxis. He continues to use his home CPAP device. Clinically, he is much more stable and feels better. Chest x-ray is relatively stable. We will continue to follow the patient and make recommendations where appropriate. Possible discharge early next week back to the residential. Plan dated 11/03/2021. Currently, the patient is doing better. He continues on 4 L nasal cannula. He's being treated with his Zosyn for Klebsiella pneumoniae pneumonia. He also continues on his CPAP device at nighttime. Labs, x-rays, and medications are reviewed. The patient will likely be discharged sometime early next week. We will continue to follow the patient and make recommendations where appropriate. The patient will be discharged back to the residential when he does leave. Time with Patient: Less than 30
[2021-11-03] MEDS: ALPRAZolam 0.25 MG TAB PO PRN (15:04)
[2021-11-03 16:25] LABS: Glucose,Whole Blood 164 mg/dL (75-99)
[2021-11-03] MEDS: RIVAROXABAN 20 MG TAB PO SCH (16:34)
[2021-11-03] MEDS: SIMETHICONE 80 MG CHEWABLE PO PRN (17:12)
[2021-11-03 19:40] LABS: Glucose,Whole Blood 236 mg/dL (75-99)
[2021-11-03] MEDS: METOPROLOL SUCCINATE (ER) 50 MG TAB.ER.24H PO SCH (21:51)
[2021-11-03] MEDS: PRAVASTATIN SODIUM 80 MG TAB PO SCH (21:51)
[2021-11-03] MEDS: ESCITALOPRAM 20 MG TAB PO SCH (21:51)
[2021-11-03] MEDS: OLANZapine 2.5 MG TAB PO SCH (21:51)
[2021-11-03] MEDS: TEMAZEPAM 15 MG CAP PO PRN (21:51)
[2021-11-03] MEDS: TAMSULOSIN 0.4 MG CAP.ER.24H PO SCH (21:51)
[2021-11-04] MEDS: HYDROcodone/APAP 7.5-325MG 1 EACH TAB PO PRN ×2 (03:26→18:05)
[2021-11-04 06:30] LABS: Glucose,Whole Blood 117 mg/dL (75-99)
[2021-11-04] MEDS: INSULIN ASPART (NovoLOG) 100 UNIT/ML VIAL SQ SCH ×4 (06:31→21:25)
[2021-11-04] MEDS: FERROUS SULFATE 325 MG TAB PO SCH ×2 (06:42→18:05)
[2021-11-04] MEDS: PANTOPRAZOLE 40 MG TABLET PO SCH (06:42)
[2021-11-04 08:08] LABS: Anisocytosis Slight; Basophils # (A) 0.1 k/uL (0-0.2); Basophils % (A) 1 %; Eosinophils # (A) 0.1 k/uL (0-0.7); Eosinophils % (A) 1 %; HCT 34.5 % (39.0-53.0); HGB 10.8 gm/dL (13.0-17.5); Hypochromasia Moderate; Lymphocytes # (A) 1.7 k/uL (1.0-4.8); Lymphocytes % (A) 13 %; MCH 28.8 pg (25.0-35.0); MCHC 31.2 g/dL (31.0-37.0); Mean Platelet Volume 9.5; Monocytes # (A) 0.4 k/uL (0-1.0); Monocytes % (A) 3 %; Neutrophils # (A) 10.2 k/uL (1.3-7.7); Neutrophils % (A) 82 %; Platelet Count 132 k/uL (150-450); RBC 3.74 m/uL (4.30-5.90); RDW 19.3 % (11.5-15.5); WBC 12.5 k/uL (3.8-10.6)
[2021-11-04 08:09] LABS: MCV 92.4 fL (80.0-100.0)
[2021-11-04] MEDS: IPRATROPIUM-ALBUTEROL 3 ML NEB INHALATION SCH ×4 (08:37→19:03)
[2021-11-04] MEDS: SYMBICORT 160-4.5 MCG INHALER INHALATION SCH ×2 (08:37→19:03)
[2021-11-04 08:58] LABS: African American GFR (CKD) >90 (>60 ml/min/1.73 sqM); Anion Gap 6 mmol/L; Blood Urea Nitrogen 26 mg/dL (9-20); Calcium 8.6 mg/dL (8.4-10.2); Carbon Dioxide 33 mmol/L (22-30); Chloride 95 mmol/L (98-107); Glucose 88 mg/dL (74-99); Non-African American GFR(CKD) >90 (>60 ml/min/1.73 sqM); Potassium 3.7 mmol/L (3.5-5.1); Sodium 134 mmol/L (137-145)
[2021-11-04] MEDS: POTASSIUM CHLORIDE ER 20 MEQ TAB.ER PO SCH ×2 (08:58→21:25)
[2021-11-04] MEDS: DOCUSATE 100 MG CAP PO SCH ×2 (08:58→21:08)
[2021-11-04] MEDS: SPIRONOLACTONE 25 MG TAB PO SCH (08:58)
[2021-11-04] MEDS: PREGABALIN 100 MG CAP PO SCH ×3 (08:58→21:24)
[2021-11-04] MEDS: predniSONE 20 MG TAB PO SCH (08:58)
[2021-11-04] MEDS: FUROSEMIDE 40 MG TAB PO SCH ×2 (08:58→18:05)
[2021-11-04] MEDS: METOPROLOL SUCCINATE (ER) 100 MG TAB.ER.24H PO SCH (08:58)
[2021-11-04] MEDS: ISOSORBIDE MONONITRATE ER 60 MG TAB.ER.24H PO SCH (08:58)
[2021-11-04] MEDS: CHOLECALCIFEROL 25 MCG (1000 IU) TABLET PO SCH (08:58)
[2021-11-04] MEDS: ALPRAZolam 0.25 MG TAB PO PRN (11:39)
[2021-11-04 11:56] LABS: Glucose,Whole Blood 146 mg/dL (75-99)
--- NOTE | 2021-11-04 14:59 | P.PN ---
Subjective Progress Note Date: 11/04/21 Principal diagnosis: COPD exacerbation. Reevaluated today on 10/27/2021, patient remains in the ICU, he is now on nasal cannula, he is on 4 L with O2 sats of 96%. At night he was on BiPAP at IPAP of 10 and EPAP of 5 and FiO2 of 36%. Patient is being treated for pneumonia, and p ossibly acute on chronic diastolic congestive heart failure. He has been on diuretics, has been receiving Zosyn for presumptive aspiration pneumonia. Clinically the patient is feeling better, breathing a lot easier, he does have history of alcohol abuse, and he is on [facility] protocol for potential alcohol withdrawal.CBC is relatively normal left was abnormal renal profile is normal. Chest x-ray continues to show bilateral infiltrates/interstitial edema is also possible Reevaluated today on 10/28/2021, patient is now on the regular medical floor, seems to be doing better, he is on 4 L nasal cannula, O2 sats is 92%. Patient is still receiving treatment for acute on chronic diastolic congestive heart failure, and possibly underlying pneumonia. Patient may have developed aspiration pneumonia based on the clinical history. And he is still on Zosyn. Clinically improving. Labs are unremarkable including a relatively normal CBC except hemoglobin of 8.9 electrolytes are normal renal profile is normal. Patient clearly stated to me that he is feeling better since admission. Chest x-ray continues to show bilateral interstitial infiltrates/edema at the bases difficult to tell how much of it is really interstitial edema or pneumonia. Progress note dated 10/29/2021. 76-year-old male who was in the intensive care unit, but is currently seen on the general medical floor, room 368. Currently, he's on 4 L nasal cannula. The patient will use his home CPAP tonight. Last night, use a hospital BiPAP system, with settings of 10 and 5 and 36%. He's feeling much improved. His shortness of breath is much improved. He is currently not receiving any IV fluids. I have includes a white count 9.6, hemoglobin 8.9, hematocrit 30.3, and platelet count 186,000. Sodium 138, potassium 4, chlorides 99, CO2 33, BUN 31, and creatinine 0.66. Chest x-ray shows some patchy densities in the bilateral lower lobes, with blunting of the costophrenic angles. Progress note dated 10/30/2021. A 76-year-old male, again seen in room 368. The patient is doing relatively well. He remains on 4 L nasal cannula. He did use his home CPAP device last night. Prior to that, he was using the [facility] BiPAP machine. The patient does feel improved. His breathing is better. Currently laboratory data includes a white count of 10.5, hemoglobin 9.5, hematocrit 32.5, and platelet count 172,000. Sodium 137, potassium 4.3, chlorides 99, CO2 30, BUN 34, and creatinine 0.7. Chest x-ray shows bilateral pleural effusions, which are small, with bilateral infiltrates, which are stable. Progress note dated 10/31/2021. 76-year-old male, again seen in room 368. The patient's doing relatively well. He did use his CPAP device last night for about 4-5 hours. At 2 nights in a row. The patient is feeling improved. Lab data today includes a white count of 11, hemoglobin 9.7, hematocrit 33.4, and platelet count 171,000. Sodium 137, potassium 4.3, chlorides 98, CO2 33, BUN 36, and creatinine 0.76. Sputum did reveal evidence of Klebsiella pneumoniae. Chest x-ray shows bilateral infiltrates, and pleural effusions, and also changes of COPD, and pulmonary fibrosis. Progress note dated 11/01/2021. 76-year-old male, again seen in room 368. Sitting up in bed. He is wearing O2. The patient is complaining about being a bit more short of breath today. He's not recently received a breathing treatment. He is using his home CPAP at nighttime. He apparently uses about 4 hours last night. Sputum did reveal evidence of Klebsiella pneumoniae. No new labs today to report. Chest x-ray from October 30 was reviewed. Progress note dated 11/02/2021. The patient is again seen today in room 368. He is resting comfortably. He's on 4 L nasal cannula. He's not receiving any IV fluids. He remains on Zosyn for his Klebsiella pneumoniae pneumonia. He is feeling better today. We did request a chest x-ray today. White count 13.2, hemoglobin 10.4, hematocrit 34.8, and platelet count 134,000. Sodium 137, potassium 3.8, chlorides 98, CO2 32, BUN 35, and creatinine 0.79. Chest x-ray reveals bilateral infiltrates, consistent with either fluid overload/and/or pneumonia. The chest x-ray is stable. Progress note dated 11/03/2021. The patient is again seen in room 368. The patient is getting a breathing treatment. He remains on 4 L nasal cannula. He's not receiving any IV fluids. The patient is being treated for Klebsiella pneumoniae pneumonia. Clinically, he is feeling better. He continues to use his home CPAP device at nighttime. No new laboratory data today. The chest x-ray from yesterday was reviewed. Findings are stable. Progress note dated 11/04/2021. 76-year-old male seen again in room 368. He remains on O2 at 4 L. The patient is hoping to be discharged tomorrow. Patient being treated for Klebsiella pneumoniae pneumonia. The patient has completed Zosyn. The patient is not receiving any IV fluids. Today's labs include a white count of 12.5, hemoglobin 10.8, hematocrit 34.5, and platelet count of 132,000. Sodium 134, potassium 3.7, chlorides 95, CO2 33, anion gap 6, BUN 26, and creatinine 0.53. Objective - Vital Signs Vital signs: Vital Signs Temp 97.8 F 11/04/21 11:35 Pulse 73 11/04/21 11:35 Resp 18 11/04/21 13:14 BP 106/66 11/04/21 11:35 Pulse Ox 93 L 11/04/21 11:35 Intake & Output 11/03/21 11/04/21 11/04/21 18:59 06:59 18:59 Intake Total 834 10 718 Output Total 2800 800 Balance 834 -2790 -82 Intake: IV 10 Invasive Line 3 10 Oral 834 718 Output: Urine 2800 800 Other: Voiding Method Indwelling Catheter Indwelling Catheter Indwelling Catheter # Bowel Movements 1 1 - Exam No acute distress, oriented 3. Resting comfortably in bed. Currently on 4 L nasal cannula with saturations of 93%. No conversational dyspnea or use of accessory muscles. HEENT examination is grossly unremarkable. Neck supple. Full range of motion. No adenopathy thyromegaly or neck vein distention. Cardiovascular examination reveals regular rhythm rate. S1-S2 normal. No S3 or S4. No discernible murmur noted. Heart rate 76 bpm. Lungs reveal scattered bilateral rhonchi. No wheezes. No crackles. Breath sounds equal bilaterally. Breath sounds are improved. Abdomen soft bowel sounds are heard. No masses or tenderness. Extremities are intact. No cyanosis clubbing or edema. Skin is without rash or lesion. Neurologic examination is brief but nonfocal. - Labs CBC & Chem 7: 11/04/21 07:26 11/04/21 07:26 Labs: Abnormal Lab Results - Last 24 Hours (Table) 11/03/21 11/03/21 11/04/21 Range/Units 16:24 19:39 06:29 WBC (3.8-10.6) k/uL RBC (4.30-5.90) m/uL Hgb (13.0-17.5) gm/dL Hct (39.0-53.0) % RDW (11.5-15.5) % Plt Count (150-450) k/uL Neutrophils # (1.3-7.7) k/uL Sodium (137-145) mmol/L Chloride (98-107) mmol/L Carbon Dioxide (22-30) mmol/L BUN (9-20) mg/dL Creatinine (0.66-1.25) mg/dL POC Glucose (mg/dL) 164 H 236 H 117 H (75-99) mg/dL 11/04/21 11/04/21 11/04/21 Range/Units 07:26 07:26 11:44 WBC 12.5 H (3.8-10.6) k/uL RBC 3.74 L (4.30-5.90) m/uL Hgb 10.8 L (13.0-17.5) gm/dL Hct 34.5 L (39.0-53.0) % RDW 19.3 H (11.5-15.5) % Plt Count 132 L (150-450) k/uL Neutrophils # 10.2 H (1.3-7.7) k/uL Sodium 134 L (137-145) mmol/L Chloride 95 L (98-107) mmol/L Carbon Dioxide 33 H (22-30) mmol/L BUN 26 H (9-20) mg/dL Creatinine 0.53 L (0.66-1.25) mg/dL POC Glucose (mg/dL) 146 H (75-99) mg/dL Assessment and Plan Assessment: Acute on chronic hypoxemic respiratory failure, secondary to COPD exacerbation, and possible aspiration pneumonia. Klebsiella pneumoniae pneumonia, patient has completed Zosyn treatment. Acute on chronic diastolic CHF. Unresponsiveness, resolved, secondary to metabolic encephalopathy. Chronic atrial fibrillation. History of hypertension. History of previous myocardial infarction. History of obstructive sleep apnea syndrome, noncompliant with CPAP. History of alcohol abuse. History of previous tobacco use. History of CVA/TIA. Plan: Plan dated 10/29/2021. The patient appears to be doing much better. The patient's currently on 4 L nasal cannula. The patient's awake and alert. Patient plans to use his home CPAP device tonight. Last night, he used IPAP, with settings of 10/5 and 36%. He's not receiving any IV fluids. Labs, x-rays, and medications are all reviewed. He continues on GI and DVT prophylaxis, and antibiotics in the form of Zosyn. Prognosis is guarded. We will continue to follow the patient make recommendations where appropriate. Plan dated 10/30/2021. The patient appears to be doing better. He remains on 4 L. He does use his home CPAP device last night. He used to for about 5 hours or so. He seemed to tolerate it pretty well. Labs, x-rays, and medications are reviewed. The patient appears to be doing better. His breathing is improved. He remains on Zosyn. We will continue to follow the patient make recommendations were appropriate. He continues on GI and DVT prophylaxis. Sputum did show evidence of Klebsiella pneumoniae. The Klebsiella is sensitive to Zosyn. Plan dated 10/31/2021. The patient seems to be doing better. He's currently on 4 L. His sputum from the 16th was positive for Klebsiella pneumoniae. He remains on Zosyn. He continues on GI prophylaxis. The patient is using his home CPAP device at nighttime. He used it for about 4-5 hours last night. We will continue to f ollow the patient and make recommendations where appropriate. His labs, x-rays, and medications are all reviewed. Plan dated 11/01/2021. The patient is currently on 4 L. His saturations are 94-95%. The patient is currently on Zosyn for Klebsiella pneumoniae pneumonia. He continues on GI and DVT prophylaxis. He is using his home CPAP device. I've asked him to try to use it more more each night. Labs, x-rays, and medications are all reviewed. Prognosis is guarded. We will continue to follow make recommendations where appropriate. Plan dated 11/02/2021. Currently, the patient's on 4 L nasal cannula. Saturations are 94%. He remains on Zosyn, for Klebsiella pneumoniae pneumonia. He gets GI and DVT prophylaxis. He continues to use his home CPAP device. Clinically, he is much more stable and feels better. Chest x-ray is relatively stable. We will continue to follow the patient and make recommendations where appropriate. Possible discharge early next week back to the custodial. Plan dated 11/03/2021. Currently, the patient is doing better. He continues on 4 L nasal cannula. He's being treated with his Zosyn for Klebsiella pneumoniae pneumonia. He also continues on his CPAP device at nighttime. Labs, x-rays, and medications are reviewed. The patient will likely be discharged sometime early next week. We will continue to follow the patient and make recommendations where appropriate. The patient will be discharged back to the custodial when he does leave. Plan dated 11/04/2021. The patient is again seen in room 368. He remains on 4 L nasal cannula. The patient has completed Zosyn therapy for his Klebsiella pneumoniae pneumonia. He continues on CPAP at nighttime. He uses CPAP last night about 6-1/2 hours. He seems to be getting used to it more and more. Labs, x-rays, and medications are reviewed. The patient will likely be discharged in next 24-48 hours. No additional recommendations are made. We'll continue to follow. Prognosis is guarded. Time with Patient: Less than 30
[2021-11-04 16:59] LABS: Glucose,Whole Blood 203 mg/dL (75-99)
[2021-11-04] MEDS: RIVAROXABAN 20 MG TAB PO SCH (18:05)
[2021-11-04 20:11] LABS: Glucose,Whole Blood 235 mg/dL (75-99)
[2021-11-04] MEDS: PRAVASTATIN SODIUM 80 MG TAB PO SCH (21:25)
[2021-11-04] MEDS: OLANZapine 2.5 MG TAB PO SCH (21:25)
[2021-11-04] MEDS: TEMAZEPAM 15 MG CAP PO PRN (21:25)
[2021-11-04] MEDS: TAMSULOSIN 0.4 MG CAP.ER.24H PO SCH (21:25)
[2021-11-04] MEDS: ESCITALOPRAM 20 MG TAB PO SCH (21:25)
[2021-11-04] MEDS: METOPROLOL SUCCINATE (ER) 50 MG TAB.ER.24H PO SCH (21:25)
--- NOTE | 2021-11-04 22:27 | P.PN ---
Subjective Progress Note Date: 11/03/21 Patient is a 76-year-old male with a known history of atrial fibrillation on anticoagulation with Xarelto, chronic CHF diastolic function, COPD, history of CVA/TIA with residual right-sided weakness, chronic hypoxic respiratory failure on oxygen at 4 L via nasal cannula, pulmonary fibrosis, obstructive sleep apnea,, GERD, hearing disorder/deafness, hypertension, hyperlipidemia, history of MT, CAD status post CABG and other multiple medical problems including previous history of smoking presents to ER with complaints of worsening shortness of breath. Patient was unresponsive and was in agonal breathing when he presented to ER. He was placed on CPAP by EMS and transition to BiPAP in the ER. Patient was transferred to MICU. Chest x-ray showed COPD with bilateral infiltrate and pleural effusion. Cardiomegaly. EKG showed atrial fibrillation with rapid ventricular rate heart rate 120 Laboratory data showed WBC 17.0 hemoglobin 10.8 and platelets 301 ABG showed pH of 7.4 PCO2 55 PO2 97 Sodium 137 potassium 3.6 chloride 96 bicarbonate 31 BUN 21 creatinine 1.04 Lactic acid 3.7 Troponin 0.153 proBNP 3470 Urinalysis showed cloudy with 1+ protein and a small blood and small leukocyte esterase RBCs 9 and WBC is 8. 10/27/2021 Patient is currently in the MICU. Currently transitioning to oxygen via nasal cannula at 4 L. Patient was BiPAP overnight. Patient is being continued IV Lasix due to acute renal chronic CHF. Also on antibiotics in the form of Zosyn. Continued on methylprednisolone as well. Cultures have been negative so far. Chest x-ray today showed stable chest with persistent bilateral infiltrates. Laboratory data showed WBC 10.7, hemoglobin 9.5 and platelets 244 BUN 21 creat inine 0.68 and bicarb level is 36. Blood sugar is 175 albumin 3.0 10/28/2021 Patient is currently resting in bed. Awake alert and oriented x3. Currently on 4 L oxygen via nasal cannula. Patient was transferred to medical floor yesterday. Was using BiPAP last night. Otherwise patient is being continued IV diuretics and will be changed to by mouth Lasix from tomorrow. Patient is also on IV antibiotics and IV steroids. Chest x-ray today showed stable chest. Patient has been afebrile. Laboratory data showed WBC 11.2 hemoglobin 8.9 and platelets 210 Sodium 134 potassium 3.9 chloride 94 bicarbonate 32 BUN 28 and creatinine 0.74 and calcium 8.1. Pulmonary and cardiology is on board. 10/29/2021 Patient is currently in the select care unit. Requiring 4 L oxygen via nasal cannula as per his home regimen. Awake alert and oriented x3. No complaints of chest pain. Still having shortness of breath and patient is having exertional dyspnea. Otherwise patient is being continued IV steroids and antibiotics in the form of Zosyn. Lasix changed to by mouth 40 mg twice daily. Chest x-ray today showed correlate for possible pneumonia versus edema. There is underlying emphysema and probable scarring interstitial changes and hiatal hernia, aortic aneurysm. Laboratory data showed WBC 11.6 hemoglobin 8.9 platelets 186 BUN 31 and creatinine 0.66 bicarb is 33 sodium 138 and potassium 4.0. Patient does have low TSH and free T4 levels likely due to sick euthyroid. 10/30/2021 10/30/2021 Patient is currently sitting in the recliner. Requiring oxygen at 4 L via nasal cannula. Denies any complaints of worsening shortness of breath. Still having exertional dyspnea and bilateral rhonchi and crackles. Patient did use CPAP last night. No fever no chills. No nausea vomiting or abdominal pain or diarrhea. Chest x-ray today showed bilateral infiltrate and pleural effusion likely superimposed on background of COPD and pulmonary fibrosis stable. Laboratory data showed WBC 10.4 hemoglobin 9.5 and platelets 172 sodium 135 potassium 4.3 BUN 34 and creatinine 0.7 calcium 8.3 blood sugar is 155. Pulmonary is on board. Patient is being current Lasix 40 mg twice daily and Solu-Medrol IV. also on antibiotics in the form of Zosyn. Sputum cultures are growing Mery albicans and Klebsiella pneumonia. Currently maintained on antibiotics the form of Zosyn. 10/31/2021 Patient is currently resting in bed. Denies any complaints of worsening shortness of air. Still requiring 4 L via nasal cannula. Did not use CPAP last night. No complaints of chest pain. No headache or dizziness lightheadedness. PT OT has seen the patient. Laboratory test showed WBC 11.0 hemoglobin 9.7 platelets 171 BUN 36 and creatinine 0.76 and bicarb is 33. Patient is being under antibiotics in the form of Zosyn. IV steroids changed to prednisone and current with Lasix 40 mg twice daily. 11/01/2021 Patient is currently in the telemetry unit. Awake alert and oriented 3. Complaints of shortness of breath which is worse today. No fever no chills. Cough without any sputum production. Patient was able to sit up in the chair this morning. No nausea vomiting or abdominal pain. Able to participate in physical therapy. No headache or dizziness. Sputum culture showed Mery albicans and club saline pneumonia. Patient is on antibiotics in the form of Zosyn. Also on prednisone and Lasix changed to by mouth. Cardiology and pulmonary is on board. Laboratory data reviewed. 11/02/2021 Patient is currently resting in the bed. Awake alert and oriented 3. Breathing status is slightly better today. No complaints of chest pain. No nausea vomiting or abdominal pain or diarrhea. Patient has been afebrile. Continued on antibiotics in the form of Zosyn and also on oral Lasix and predn isone 40 mg daily. Patient is also an aunt atrial fibrillation with xarelto. Laboratory data showed WBC 13.2 hemoglobin 10.4 and platelets 134 Sodium 137 potassium 3.8 chloride 98 bicarb is 32 BUN 35 and creatinine 0.79 and blood sugar is 106 11/03/2021 Patient is currently resting well. Awake alert and oriented. Breathing status is improving. Requiring oxygen 4 L via nasal cannula at his regular level. Sputum culture showed Klebsiella and Mery. Patient did complete antibiotic course. Patient is being current Lasix and prednisone tapering course. Pulmonary is on board. PT OT is following. Current medications reviewed. Objective - Vital Signs Vital signs: Vital Signs Temp 97.2 F L 11/03/21 12:32 Pulse 74 11/03/21 20:57 Resp 18 11/03/21 17:00 BP 121/65 11/03/21 17:00 Pulse Ox 96 11/03/21 17:00 Intake & Output 11/03/21 11/03/21 11/04/21 06:59 18:59 06:59 Intake Total 10 834 Output Total 2330 1800 Balance -2320 834 -1800 Weight 98 kg Intake: IV 10 Invasive Line 3 10 Oral 834 Output: Urine 2330 1800 Other: Voiding Method Indwelling Catheter Indwelling Catheter - Exam PHYSICAL EXAMINATION: Patient is lying in the bed comfortably, no acute distress, awake alert and oriented.. HEENT: Normocephalic. Neck is supple. Pupils reactive. Nostrils clear. Oral cavity is moist. Neck reveals no JVD, carotid bruits, or thyromegaly. CHEST EXAMINATION: Trachea is central. Symmetrical expansion. Bibasilar diminished sounds and scattered coarse sounds and crackles. CARDIAC: Normal S1, S2 with no gallops. No murmurs ABDOMEN: Soft. Bowel sounds normal. No organomegaly. No abdominal bruits. Extremities: Bilateral trace edema. No clubbing or cyanosis Neurologically awake, alert, oriented x3 with well-coordinated movements. No focal deficits noted Skin: No rash or skin lesions. Psychiatric: Cooperative. Nonsuicidal Musculoskeletal: No joint swelling or deformity. Normal range of motion. - Labs CBC & Chem 7: 11/04/21 07:26 11/04/21 07:26 Labs: Abnormal Lab Results - Last 24 Hours (Table) 11/03/21 11/03/21 11/03/21 Range/Units 06:16 11:34 16:24 POC Glucose (mg/dL) 101 H 213 H 164 H (75-99) mg/dL 11/03/21 Range/Units 19:39 POC Glucose (mg/dL) 236 H (75-99) mg/dL Assessment and Plan Assessment: Shortness of breath is multifactorial due to acute COPD and CHF exacerbation and pneumonia. Sputum culture showed Mery albicans and Klebsiella pneumonia Acute on chronic hypoxic respiratory failure requiring BiPAP--4L NC Acute COPD exacerbation Acute on chronic CHF with diastolic dysfunction Lactic acidosis 3.7 on admission Mildly elevated troponin level likely due to demand mismatch Chronic hypoxic respiratory failure requiring 4 L oxygen via nasal cannula Chronic atrial fibrillation with rapid ventricular rate on admission History of CVA/TIA with right-sided weakness Coronary disease s/p CABG history History of MT GERD Hearing disorder/deafness Hypertension Hyperlipidemia Previous history of smoking History of AAA repair Plan: Patient completed antibiotic course with Zosyn. Was given a dose of ceftriaxone azithromycin in the ER. Continue with IV steroids and IV Lasix changed to by mouth.. Transitioned to oxygen via nasal cannula at 4 L. on PO Prednisone tapering. patient was started back on CPAP as per his home settings,. Pulmonary is following. Continue the home medications and follow closely. Prognosis is guarded at this time. Time with Patient: Greater than 30
--- NOTE | 2021-11-04 22:30 | P.PN ---
Subjective Progress Note Date: 11/04/21 Patient is a 76-year-old male with a known history of atrial fibrillation on anticoagulation with Xarelto, chronic CHF diastolic function, COPD, history of CVA/TIA with residual right-sided weakness, chronic hypoxic respiratory failure on oxygen at 4 L via nasal cannula, pulmonary fibrosis, obstructive sleep apnea,, GERD, hearing disorder/deafness, hypertension, hyperlipidemia, history of NC, CAD status post CABG and other multiple medical problems including previous history of smoking presents to ER with complaints of worsening shortness of breath. Patient was unresponsive and was in agonal breathing when he presented to ER. He was placed on CPAP by EMS and transition to BiPAP in the ER. Patient was transferred to MICU. Chest x-ray showed COPD with bilateral infiltrate and pleural effusion. Cardiomegaly. EKG showed atrial fibrillation with rapid ventricular rate heart rate 120 Laboratory data showed WBC 17.0 hemoglobin 10.8 and platelets 301 ABG showed pH of 7.4 PCO2 55 PO2 97 Sodium 137 potassium 3.6 chloride 96 bicarbonate 31 BUN 21 creatinine 1.04 Lactic acid 3.7 Troponin 0.153 proBNP 3470 Urinalysis showed cloudy with 1+ protein and a small blood and small leukocyte esterase RBCs 9 and WBC is 8. 10/27/2021 Patient is currently in the MICU. Currently transitioning to oxygen via nasal cannula at 4 L. Patient was BiPAP overnight. Patient is being continued IV Lasix due to acute renal chronic CHF. Also on antibiotics in the form of Zosyn. Continued on methylprednisolone as well. Cultures have been negative so far. Chest x-ray today showed stable chest with persistent bilateral infiltrates. Laboratory data showed WBC 10.7, hemoglobin 9.5 and platelets 244 BUN 21 creat inine 0.68 and bicarb level is 36. Blood sugar is 175 albumin 3.0 10/28/2021 Patient is currently resting in bed. Awake alert and oriented x3. Currently on 4 L oxygen via nasal cannula. Patient was transferred to medical floor yesterday. Was using BiPAP last night. Otherwise patient is being continued IV diuretics and will be changed to by mouth Lasix from tomorrow. Patient is also on IV antibiotics and IV steroids. Chest x-ray today showed stable chest. Patient has been afebrile. Laboratory data showed WBC 11.2 hemoglobin 8.9 and platelets 210 Sodium 134 potassium 3.9 chloride 94 bicarbonate 32 BUN 28 and creatinine 0.74 and calcium 8.1. Pulmonary and cardiology is on board. 10/29/2021 Patient is currently in the [facility] care unit. Requiring 4 L oxygen via nasal cannula as per his home regimen. Awake alert and oriented x3. No complaints of chest pain. Still having shortness of breath and patient is having exertional dyspnea. Otherwise patient is being continued IV steroids and antibiotics in the form of Zosyn. Lasix changed to by mouth 40 mg twice daily. Chest x-ray today showed correlate for possible pneumonia versus edema. There is underlying emphysema and probable scarring interstitial changes and hiatal hernia, aortic aneurysm. Laboratory data showed WBC 11.6 hemoglobin 8.9 platelets 186 BUN 31 and creatinine 0.66 bicarb is 33 sodium 138 and potassium 4.0. Patient does have low TSH and free T4 levels likely due to sick euthyroid. 10/30/2021 10/30/2021 Patient is currently sitting in the recliner. Requiring oxygen at 4 L via nasal cannula. Denies any complaints of worsening shortness of breath. Still having exertional dyspnea and bilateral rhonchi and crackles. Patient did use CPAP last night. No fever no chills. No nausea vomiting or abdominal pain or diarrhea. Chest x-ray today showed bilateral infiltrate and pleural effusion likely superimposed on background of COPD and pulmonary fibrosis stable. Laboratory data showed WBC 10.4 hemoglobin 9.5 and platelets 172 sodium 135 potassium 4.3 BUN 34 and creatinine 0.7 calcium 8.3 blood sugar is 155. Pulmonary is on board. Patient is being current Lasix 40 mg twice daily and Solu-Medrol IV. also on antibiotics in the form of Zosyn. Sputum cultures are growing Mery albicans and Klebsiella pneumonia. Currently maintained on antibiotics the form of Zosyn. 10/31/2021 Patient is currently resting in bed. Denies any complaints of worsening shortness of air. Still requiring 4 L via nasal cannula. Did not use CPAP last night. No complaints of chest pain. No headache or dizziness lightheadedness. PT OT has seen the patient. Laboratory test showed WBC 11.0 hemoglobin 9.7 platelets 171 BUN 36 and creatinine 0.76 and bicarb is 33. Patient is being under antibiotics in the form of Zosyn. IV steroids changed to prednisone and current with Lasix 40 mg twice daily. 11/01/2021 Patient is currently in the telemetry unit. Awake alert and oriented 3. Complaints of shortness of breath which is worse today. No fever no chills. Cough without any sputum production. Patient was able to sit up in the chair this morning. No nausea vomiting or abdominal pain. Able to participate in physical therapy. No headache or dizziness. Sputum culture showed Mery albicans and club saline pneumonia. Patient is on antibiotics in the form of Zosyn. Also on prednisone and Lasix changed to by mouth. Cardiology and pulmonary is on board. Laboratory data reviewed. 11/02/2021 Patient is currently resting in the bed. Awake alert and oriented 3. Breathing status is slightly better today. No complaints of chest pain. No nausea vomiting or abdominal pain or diarrhea. Patient has been afebrile. Continued on antibiotics in the form of Zosyn and also on oral Lasix and predn isone 40 mg daily. Patient is also an aunt atrial fibrillation with xarelto. Laboratory data showed WBC 13.2 hemoglobin 10.4 and platelets 134 Sodium 137 potassium 3.8 chloride 98 bicarb is 32 BUN 35 and creatinine 0.79 and blood sugar is 106 11/03/2021 Patient is currently resting well. Awake alert and oriented. Breathing status is improving. Requiring oxygen 4 L via nasal cannula at his regular level. Sputum culture showed Klebsiella and Mery. Patient did complete antibiotic course. Patient is being current Lasix and prednisone tapering course. Pulmonary is on board. PT OT is following. 11 04 2021 Patient is currently resting in bed. Able to get up and sit in the chair. Participating in physical therapy. Breathing status is better. No complaints of chest pain or worsening shortness of breath. Remains on 4 L oxygen via nasal cannula. Completed treatment with Zosyn for Klebsiella pneumoniae pneumonia. Continue with Lasix by mouth and prednisone tapering course. Laboratory data showed WBC 12.4 hemoglobin 10.8 and platelets 132 Sodium 134 potassium 3.7 chloride 95 bicarb is 33 BUN 26 and creatinine 0.53 Anticipate discharge to rehab in the next 24 hours. Current medications reviewed. Objective - Vital Signs Vital signs: Vital Signs Temp 97.8 F 11/04/21 11:35 Pulse 73 11/04/21 11:35 Resp 18 11/04/21 13:14 BP 106/66 11/04/21 11:35 Pulse Ox 93 L 11/04/21 11:35 Intake & Output 04/11/04/21 11/04/21 18:59 06:59 18:59 Intake Total 834 10 718 Output Total 2800 800 Balance 594 -8660 -82 Intake: IV 10 Invasive Line 3 10 Oral 834 718 Output: Urine 2800 800 Other: Voiding Method Indwelling Catheter Indwelling Catheter Indwelling Catheter # Bowel Movements 1 1 - Exam PHYSICAL EXAMINATION: Patient is lying in the bed comfortably, no acute distress, awake alert and oriented.. HEENT: Normocephalic. Neck is supple. Pupils reactive. Nostrils clear. Oral cavity is moist. Neck reveals no JVD, carotid bruits, or thyromegaly. CHEST EXAMINATION: Trachea is central. Symmetrical expansion. Bibasilar diminished sounds and scattered coarse sounds and crackles. CARDIAC: Normal S1, S2 with no gallops. No murmurs ABDOMEN: Soft. Bowel sounds normal. No organomegaly. No abdominal bruits. Extremities: Bilateral trace edema. No clubbing or cyanosis Neurologically awake, alert, oriented x3 with well-coordinated movements. No focal deficits noted Skin: No rash or skin lesions. Psychiatric: Cooperative. Nonsuicidal Musculoskeletal: No joint swelling or deformity. Normal range of motion. - Labs CBC & Chem 7: 11/04/21 07:26 11/04/21 07:26 Labs: Abnormal Lab Results - Last 24 Hours (Table) 11/03/21 11/03/21 11/04/21 Range/Units 16:24 19:39 06:29 WBC (3.8-10.6) k/uL RBC (4.30-5.90) m/uL Hgb (13.0-17.5) gm/dL Hct (39.0-53.0) % RDW (11.5-15.5) % Plt Count (150-450) k/uL Neutrophils # (1.3-7.7) k/uL Sodium (137-145) mmol/L Chloride (98-107) mmol/L Carbon Dioxide (22-30) mmol/L BUN (9-20) mg/dL Creatinine (0.66-1.25) mg/dL POC Glucose (mg/dL) 164 H 236 H 117 H (75-99) mg/dL 11/04/21 11/04/21 11/04/21 Range/Units 07:26 07:26 11:44 WBC 12.5 H (3.8-10.6) k/uL RBC 3.74 L (4.30-5.90) m/uL Hgb 10.8 L (13.0-17.5) gm/dL Hct 34.5 L (39.0-53.0) % RDW 19.3 H (11.5-15.5) % Plt Count 132 L (150-450) k/uL Neutrophils # 10.2 H (1.3-7.7) k/uL Sodium 134 L (137-145) mmol/L Chloride 95 L (98-107) mmol/L Carbon Dioxide 33 H (22-30) mmol/L BUN 26 H (9-20) mg/dL Creatinine 0.53 L (0.66-1.25) mg/dL POC Glucose (mg/dL) 146 H (75-99) mg/dL Assessment and Plan Assessment: Shortness of breath is multifactorial due to acute COPD and CHF exacerbation and pneumonia. Sputum culture showed Mery albicans and Klebsiella pneumonia Acute on chronic hypoxic respiratory failure requiring BiPAP--4L NC Acute COPD exacerbation Acute on chronic CHF with diastolic dysfunction Lactic acidosis 3.7 on admission Mildly elevated troponin level likely due to demand mismatch Chronic hypoxic respiratory failure requiring 4 L oxygen via nasal cannula Chronic atrial fibrillation with rapid ventricular rate on admission History of CVA/TIA with right-sided weakness Coronary disease s/p CABG history History of NC GERD Hearing disorder/deafness Hypertension Hyperlipidemia Previous history of smoking History of AAA repair Plan: Patient completed antibiotic course with Zosyn. Was given a dose of ceftriaxone azithromycin in the ER. Continue with IV steroids and IV Lasix changed to by mouth.. Transitioned to oxygen via nasal cannula at 4 L. on PO Prednisone tapering. patient was started back on CPAP as per his home settings,. Pulmonary is following. Anticipate discharge to rehab in the next 24 hours. Time with Patient: Greater than 30
[2021-11-05] MEDS ORDERED: METOPROLOL SUCCINATE (ER) 100 MG TAB.ER.24H PO ONE (09:00)
[2021-11-05] MEDS ORDERED: PREGABALIN 100 MG CAP ONE (09:00)
[2021-11-05] MEDS ORDERED: SPIRONOLACTONE 25 MG TAB ONE (09:00)
[2021-11-05] MEDS ORDERED: PANTOPRAZOLE 40 MG TABLET PO ONE (09:00)
[2021-11-05] MEDS ORDERED: DOCUSATE 100 MG CAP ONE (09:00)
[2021-11-05] MEDS ORDERED: FERROUS SULFATE 325 MG TAB PO ONE (09:00)
[2021-11-05] MEDS ORDERED: CHOLECALCIFEROL 25 MCG (1000 IU) TABLET ONE (09:00)
[2021-11-05] MEDS ORDERED: HYDROcodone/APAP 7.5-325MG 1 EACH TAB ONE (09:00)
[2021-11-05] MEDS ORDERED: ISOSORBIDE MONONITRATE ER 60 MG TAB.ER.24H PO ONE (09:00)
[2021-11-05] MEDS ORDERED: POTASSIUM CHLORIDE ER 20 MEQ TAB.ER PO ONE (09:00)
[2021-11-05] MEDS ORDERED: FUROSEMIDE 40 MG TAB ONE (09:00)
[2021-11-05] MEDS ORDERED: predniSONE 20 MG TAB ONE (09:00)
[2021-11-05 10:27] LABS: Anisocytosis Slight; Basophils % (A) 0 %; Eosinophils # (A) 0.1 k/uL (0-0.7); Eosinophils % (A) 1 %; HCT 35.4 % (39.0-53.0); HGB 10.6 gm/dL (13.0-17.5); Hypochromasia Marked; Lymphocytes # (A) 1.4 k/uL (1.0-4.8); Lymphocytes % (A) 13 %; MCH 28.9 pg (25.0-35.0); MCHC 29.9 g/dL (31.0-37.0); MCV 96.7 fL (80.0-100.0); Macrocytosis Slight; Mean Platelet Volume 9.2; Monocytes # (A) 0.2 k/uL (0-1.0); Monocytes % (A) 2 %; Neutrophils # (A) 9.6 k/uL (1.3-7.7); Neutrophils % (A) 84 %; Platelet Count 144 k/uL (150-450); RBC 3.66 m/uL (4.30-5.90); RDW 19.8 % (11.5-15.5); WBC 11.4 k/uL (3.8-10.6)
[2021-11-05 10:44] LABS: African American GFR (CKD) >90 (>60 ml/min/1.73 sqM); Anion Gap 3 mmol/L; Blood Urea Nitrogen 23 mg/dL (9-20); Calcium 8.7 mg/dL (8.4-10.2); Carbon Dioxide 38 mmol/L (22-30); Chloride 93 mmol/L (98-107); Glucose 158 mg/dL (74-99); Non-African American GFR(CKD) >90 (>60 ml/min/1.73 sqM); Potassium 3.8 mmol/L (3.5-5.1); Sodium 134 mmol/L (137-145)
[2021-11-05 10:48] LABS: Glucose,Whole Blood 100 mg/dL (75-99)
[2021-11-05] MEDS: IPRATROPIUM-ALBUTEROL 3 ML NEB INHALATION SCH ×4 (11:23→21:41)
[2021-11-05] MEDS: SYMBICORT 160-4.5 MCG INHALER INHALATION SCH ×2 (11:33→21:41)
[2021-11-05 11:51] LABS: Glucose,Whole Blood 154 mg/dL (75-99)
[2021-11-05] MEDS: HYDROcodone/APAP 7.5-325MG 1 EACH TAB PO PRN ×2 (12:53→20:56)
[2021-11-05] MEDS: FERROUS SULFATE 325 MG TAB PO SCH ×2 (13:14→17:02)
[2021-11-05] MEDS: FUROSEMIDE 40 MG TAB PO SCH ×2 (13:14→17:02)
[2021-11-05] MEDS: CHOLECALCIFEROL 25 MCG (1000 IU) TABLET PO SCH (13:14)
[2021-11-05] MEDS: DOCUSATE 100 MG CAP PO SCH ×2 (13:14→20:56)
[2021-11-05] MEDS: INSULIN ASPART (NovoLOG) 100 UNIT/ML VIAL SQ SCH ×3 (13:14→20:55)
[2021-11-05] MEDS: PANTOPRAZOLE 40 MG TABLET PO SCH (13:14)
[2021-11-05] MEDS: SPIRONOLACTONE 25 MG TAB PO SCH (13:15)
[2021-11-05] MEDS: predniSONE 20 MG TAB PO SCH (13:15)
[2021-11-05] MEDS: ISOSORBIDE MONONITRATE ER 60 MG TAB.ER.24H PO SCH (13:15)
[2021-11-05] MEDS: POTASSIUM CHLORIDE ER 20 MEQ TAB.ER PO SCH ×2 (13:15→20:56)
[2021-11-05] MEDS: METOPROLOL SUCCINATE (ER) 100 MG TAB.ER.24H PO SCH (13:15)
[2021-11-05] MEDS: PREGABALIN 100 MG CAP PO SCH ×3 (13:15→23:30)
--- NOTE | 2021-11-05 13:45 | P.PN ---
Subjective Progress Note Date: 11/05/21 Patient evaluated today resting in bed. He is currently on 4L Nasal cannula which is his home dose. Oxygen saturation around 97%. He still has some faint wheezes. Shahid catheter was placed on admission which can be removed. Labs today showing white count 11.4, hemoglobin 10.6, platelet count 144, sodium 134, chloride 93, bicarb 38. Blood glucose slightly improved to the 150's. Maintained on duonebs, symbicort, oral lasix, oral steroids. Review of Systems Constitutional: Denied any fatigue denied any fever. Cardio vascular: denied any chest pain, palpitations Gastrointestinal: denied any nausea, vomiting, diarrhea Pulmonary:Reports mild shortness of breath at rest, dry nonproductive cough Neurologic denied any new focal deficits All inpatient medications were reviewed and appropriate changes in these medications as dictated in the interval history and assessment and plan. PHYSICAL EXAMINATION: GENERAL: The patient is alert and oriented x3, not in any acute distress. Well developed, well nourished. HEENT: Pupils are round and equally reacting to light. EOMI. No scleral icterus. No conjunctival pallor. Normocephalic, atraumatic. No pharyngeal erythema. No thyromegaly. CARDIOVASCULAR: S1 and S2 present. No murmurs, rubs, or gallops. PULMONARY: Faint scattered expiratory wheeze. Rhonchi noted posterior bases. ABDOMEN: Soft, nontender, nondistended, normoactive bowel sounds. No palpable organomegaly. MUSCULOSKELETAL: No joint swelling or deformity. EXTREMITIES: No cyanosis, clubbing, or pedal edema. NEUROLOGICAL: Gross neurological examination did not reveal any focal deficits. SKIN: No rashes. Assessment and Plan Assessment Shortness of breath is multifactorial due to acute COPD and CHF exacerbation and pneumonia. Sputum culture showed Mery albicans and Klebsiella pneumonia Acute on chronic hypoxic respiratory failure requiring BiPAP--4L NC Acute COPD exacerbation Acute on chronic CHF with diastolic dysfunction Lactic acidosis 3.7 on admission, improved Mildly elevated troponin level likely due to demand mismatch Chronic atrial fibrillation with rapid ventricular rate on admission History of CVA/TIA with right-sided weakness Coronary disease s/p CABG history Decubitus sacral ulcer History of [place] GERD Hearing disorder/deafness Hypertension Hyperlipidemia Previous history of smoking History of AAA repair GI prophylaxis DVT Prophylaxis Full Code Plan: Patient has completed a course of antibiotic therapy Transitioned to oxygen via nasal cannula at 4 L Transitioned to oral lasix, oral prednisone tapering Patient was started back on CPAP as per his home settings,. Pulmonary is following. Discontinue shahid, voiding trial Anticipate discharge to rehab in the next 24 hours. Objective - Vital Signs Vital signs: Vital Signs Temp 97.8 F 11/05/21 03:24 Pulse 78 11/05/21 03:24 Resp 18 11/05/21 03:24 BP 149/78 11/05/21 03:24 Pulse Ox 98 11/05/21 03:24 Intake & Output 11/04/21 11/05/21 11/05/21 18:59 06:59 18:59 Intake Total 1318 10 Output Total 1350 1000 Balance -32 -990 Intake: IV 10 Invasive Line 3 10 Oral 1318 Output: Urine 1350 1000 Other: Voiding Method Indwelling Catheter Indwelling Catheter # Bowel Movements 2 - Labs CBC & Chem 7: 11/05/21 08:52 11/05/21 08:52 Labs: Abnormal Lab Results - Last 24 Hours (Table) 11/04/21 11/04/21 11/04/21 Range/Units 11:44 16:39 20:10 WBC (3.8-10.6) k/uL RBC (4.30-5.90) m/uL Hgb (13.0-17.5) gm/dL Hct (39.0-53.0) % MCHC (31.0-37.0) g/dL RDW (11.5-15.5) % Plt Count (150-450) k/uL Neutrophils # (1.3-7.7) k/uL Sodium (137-145) mmol/L Chloride (98-107) mmol/L Carbon Dioxide (22-30) mmol/L BUN (9-20) mg/dL Glucose (74-99) mg/dL POC Glucose (mg/dL) 146 H 203 H 235 H (75-99) mg/dL 11/05/21 11/05/21 11/05/21 Range/Units 06:12 08:52 08:52 WBC 11.4 H (3.8-10.6) k/uL RBC 3.66 L (4.30-5.90) m/uL Hgb 10.6 L (13.0-17.5) gm/dL Hct 35.4 L (39.0-53.0) % MCHC 29.9 L (31.0-37.0) g/dL RDW 19.8 H (11.5-15.5) % Plt Count 144 L (150-450) k/uL Neutrophils # 9.6 H (1.3-7.7) k/uL Sodium 134 L (137-145) mmol/L Chloride 93 L (98-107) mmol/L Carbon Dioxide 38 H (22-30) mmol/L BUN 23 H (9-20) mg/dL Glucose 158 H (74-99) mg/dL POC Glucose (mg/dL) 100 H (75-99) mg/dL Assessment and Plan Time with Patient: Less than 30
--- NOTE | 2021-11-05 14:04 | P.PN ---
Subjective Progress Note Date: 11/05/21 Principal diagnosis: Exacerbation of CHF and COPD, Pneumonia Patient is a 76-year-old male with a known history of atrial fibrillation on anticoagulation with Xarelto, chronic CHF diastolic function, COPD, history of CVA/TIA with residual right-sided weakness, pulmonary fibrosis, obstructive sleep apnea, GERD, hearing disorder/deafness, hypertension, hyperlipidemia, history of VT, CAD status post CABG and other multiple medical problems including previous history of smoking presented to the on 10/26/21 with complaints of worsening shortness of breath. Patient was unresponsive and was in agonal breathing and was placed on CPAP by EMS and transition to BiPAP in the ER. Patient was transferred to MICU. Chest x-ray showed COPD with bilateral infiltrate and pleural effusion. Cardiomegaly. EKG showed atrial fibrillation with rapid ventricular rate heart rate 120. 10/27/2021 Patient was in the ICU. Oxygen via nasal cannula at 4 L. Patient wore BiPAP overnight. Patient continued on IV Lasix due to acute renal chronic CHF. Also on antibiotics in the form of Zosyn and Methylprednisolone Cultures have been negative so far. Chest x-ray today showed stable chest with persistent bilateral infiltrates. Transferred to medical floor 10/28/2021 Patient stable on 4 L oxygen via nasal cannula and wears BiPAP at night. IV diuretics, antibiotics, and steroids continued. Chest x-ray stable. 10/29/2021 Patient resting in bed comfortably. No actue distress noted. Patient c/o dyspnea on exertion. Stable on 4L NC and BiPAP overnight. Sputum did show evidence of Klebsiella pneumoniae. The Klebsiella is sensitive to Zosyn. 10/30/2021 The patient is doing relatively well. He remains on 4 L nasal cannula. He did use his home CPAP device last night. Prior to that, he was using the [facility] BiPAP machine. The patient does feel improved. His breathing is better. 10/31/21 The patient states he worked with PT yesterday. He was able to get up into the chair with assistance. He is looking forward to working with them again today.The patient states he was able to wear his CPAP for 4-5 hours last night and slept well. He did not need his Restoril. He stated he experience some anxiety yesterday, asked for a Xanax, and stated it helped relax him. He c/o 5/10 neuropathy pain to b/l feet. He stated he already requested a Vallecitos from the nurse. He states he gets adequate relief with Vallecitos. The patient has completed a course of antibiotic therapy, He is currently on 4L oxygen via nasal cannula. Patient was started back on CPAP as per his home settings, and tolerating it an average of 4 hours a night. He has been transitioned to oral lasix, oral prednisone tapering by pulmonary. at bedside during the exam. Objective - Vital Signs Vital signs: Vital Signs Temp 97.8 F 11/05/21 03:24 Pulse 78 11/05/21 13:10 Resp 18 11/05/21 13:10 BP 149/78 11/05/21 03:24 Pulse Ox 97 11/05/21 08:30 Intake & Output 11/04/21 11/05/21 11/05/21 18:59 06:59 18:59 Intake Total 1318 10 600 Output Total 1350 1500 Balance -32 -1490 600 Intake: IV 10 Invasive Line 3 10 Oral 1318 600 Output: Urine 1350 1500 Other: Voiding Method Indwelling Catheter Indwelling Catheter Indwelling Catheter # Voids 2 # Bowel Movements 2 1 - Exam General: Patient awake alert and oriented x 3. No acute distress. HEENT: Head is atraumatic, normocephalic Neck is supple. Sclerae are clear. Pupils equal, round and reactive to light bilaterally. CV: Heart regular in rate and rhythm positive S1 and S2. No clicks, rubs or murmurs. No JVD. Peripheral pulses equal. 2/4 Lungs: Scattered Rhoncchi throughout - improved. No wheezes, rales or rhonchi. Respirations even and nonlabored. No intercostal retractions.No conversational dyspnea. Currently on 4L NC Abdomen/GI: Soft. Bowel sounds present in all 4 quadrants. Bowel sounds normoactive. No abdominal tenderness. : Shahid draining clear yellow urine Musculoskeletal/ Extremities: Generalized weakness. No tenderness on muscular exam. No ecchymosis. Trace edema to b/l LE - improving Vascular: Radial pulses equal. 2/4. Skin: Dry flaky skin, no rash. Neurologic:No focal deficits. Psychiatric: Appropriate mood and affect. - Labs CBC & Chem 7: 11/05/21 08:52 11/05/21 08:52 Labs: Abnormal Lab Results - Last 24 Hours (Table) 11/04/21 11/04/21 11/05/21 Range/Units 16:39 20:10 06:12 WBC (3.8-10.6) k/uL RBC (4.30-5.90) m/uL Hgb (13.0-17.5) gm/dL Hct (39.0-53.0) % MCHC (31.0-37.0) g/dL RDW (11.5-15.5) % Plt Count (150-450) k/uL Neutrophils # (1.3-7.7) k/uL Sodium (137-145) mmol/L Chloride (98-107) mmol/L Carbon Dioxide (22-30) mmol/L BUN (9-20) mg/dL Glucose (74-99) mg/dL POC Glucose (mg/dL) 203 H 235 H 100 H (75-99) mg/dL 11/05/21 11/05/21 11/05/21 Range/Units 08:52 08:52 11:47 WBC 11.4 H (3.8-10.6) k/uL RBC 3.66 L (4.30-5.90) m/uL Hgb 10.6 L (13.0-17.5) gm/dL Hct 35.4 L (39.0-53.0) % MCHC 29.9 L (31.0-37.0) g/dL RDW 19.8 H (11.5-15.5) % Plt Count 144 L (150-450) k/uL Neutrophils # 9.6 H (1.3-7.7) k/uL Sodium 134 L (137-145) mmol/L Chloride 93 L (98-107) mmol/L Carbon Dioxide 38 H (22-30) mmol/L BUN 23 H (9-20) mg/dL Glucose 158 H (74-99) mg/dL POC Glucose (mg/dL) 154 H (75-99) mg/dL Assessment and Plan Plan: Symptoms * Pain - Neuropathic pain to bilateral feet currently 12/21. He states the Vallecitos he has ordered makes it tolerable 10/21. Also on Tylenol PRN and scheduled Ly harrison. States he just took a Vallecitos 1/2 hour ago. * Fatigue/weakness - Feels as if he has more energy than yesterday, still feeling weak. Participating with PT * SOB - on 4LNC, denies sob at rest. c/o ST. Currently on Duoneb neb scheduled and prn, Sybmicort, Zosyn for pna, and diuretics for CHF - Aldactone and Lasix. Prednisone for COPD. Pt states wob has improved. Encouraged longer use of CPAP at HS. * Insomnia - Sleeping well and has not needed to take Restoril * N/V - denies * Anxiety/Depression - denied, continue Zyprexa and Lexapro. * Confusion/agitation - none * Appetite/dysphagia/weight loss - Patient states he has a good appetite and eating 90% of all meals. . He denies any dysphagia. * Constipation - LBM this morning, Stated Miralax and colace together has been helping. * Incontinence - denies - currently has shahid, * Itch - denies Goal/Plan - The patient is planning on returning to [facility] for rehab in the next 24 hours. Then eventually transitioning back home with his . OP palliative care contace information provided. Code Status Patient wishes to remain a full code. Noemí Butler [facility] Palliative Care Spectralink [phone] Email: [email or web address] Time with Patient: Less than 30
--- NOTE | 2021-11-05 14:20 | P.PN ---
Subjective Progress Note Date: 11/05/21 11/05/2021, patient is being seen for a follow-up. The patient is resting comfortably. He has no specific complaints. He has multiple medical problems and comorbidities including COPD, CHF, diastolic heart failure, chronic atrial fibrillation, hypertension, CAD, previous TN, obstructive sleep apnea and previous history of CVA. The patient also has had multiple falls and has wounds over his upper extremities. The patient came in with acute on chronic hypoxic respiratory failure due to gram-negative pneumonia with Klebsiella and the patient remains on IV Zosyn for now. He remains unknown of the right treatment [id number] and is also on Symbicort. He is completing a prednisone burst taper starting with 40 mg. His long-term articulation is with Xarelto. He remains on Lasix 40 mg by mouth twice a day is also on Aldactone. No other new complaints otherwise for now. Objective - Vital Signs Vital signs: Vital Signs Temp 97.8 F 11/05/21 03:24 Pulse 78 11/05/21 13:10 Resp 18 11/05/21 13:10 BP 149/78 11/05/21 03:24 Pulse Ox 97 11/05/21 08:30 Intake & Output 11/04/21 11/05/21 11/05/21 18:59 06:59 18:59 Intake Total 1318 10 600 Output Total 1350 1500 Balance -32 -1490 600 Intake: IV 10 Invasive Line 3 10 Oral 1318 600 Output: Urine 1350 1500 Other: Voiding Method Indwelling Catheter Indwelling Catheter Indwelling Catheter # Voids 2 # Bowel Movements 2 1 - Exam No acute distress, oriented 3. Resting comfortably in bed. . No conversational dyspnea or use of accessory muscles. HEENT examination is grossly unremarkable. Neck supple. Full range of motion. No adenopathy thyromegaly or neck vein distention. Cardiovascular examination reveals regular rhythm rate. S1-S2 normal. No S3 or S4. No discernible murmur noted. Lungs reveal scattered bilateral rhonchi. No wheezes. No crackles. Breath sounds equal bilaterally. Breath sounds are improved. Abdomen soft bowel sounds are heard. No masses or tenderness. Extremities are intact. No cyanosis clubbing or edema. Skin is without rash or lesion. Neurologic examination is brief but nonfocal. rehabilitation lung bases, seizure disorder along from a telemetry - Labs CBC & Chem 7: 11/05/21 08:52 11/05/21 08:52 Labs: Abnormal Lab Results - Last 24 Hours (Table) 11/04/21 11/04/21 11/05/21 Range/Units 16:39 20:10 06:12 WBC (3.8-10.6) k/uL RBC (4.30-5.90) m/uL Hgb (13.0-17.5) gm/dL Hct (39.0-53.0) % MCHC (31.0-37.0) g/dL RDW (11.5-15.5) % Plt Count (150-450) k/uL Neutrophils # (1.3-7.7) k/uL Sodium (137-145) mmol/L Chloride (98-107) mmol/L Carbon Dioxide (22-30) mmol/L BUN (9-20) mg/dL Glucose (74-99) mg/dL POC Glucose (mg/dL) 203 H 235 H 100 H (75-99) mg/dL 11/05/21 11/05/21 11/05/21 Range/Units 08:52 08:52 11:47 WBC 11.4 H (3.8-10.6) k/uL RBC 3.66 L (4.30-5.90) m/uL Hgb 10.6 L (13.0-17.5) gm/dL Hct 35.4 L (39.0-53.0) % MCHC 29.9 L (31.0-37.0) g/dL RDW 19.8 H (11.5-15.5) % Plt Count 144 L (150-450) k/uL Neutrophils # 9.6 H (1.3-7.7) k/uL Sodium 134 L (137-145) mmol/L Chloride 93 L (98-107) mmol/L Carbon Dioxide 38 H (22-30) mmol/L BUN 23 H (9-20) mg/dL Glucose 158 H (74-99) mg/dL POC Glucose (mg/dL) 154 H (75-99) mg/dL Assessment and Plan Plan: Acute on chronic hypoxemic respiratory failure, secondary to COPD exacerbation, and possible aspiration pneumonia. Clinically improving and the patient remains stable, improved and the patient is currently off IV Zosyn as the patient completed the course of treatment. Doxepin she is also stable on 4 L of O2 nasal cannula with a pulse ox of 97% Klebsiella pneumoniae pneumonia, patient has completed Zosyn treatment. Acute on chronic diastolic CHF. Patient is currently on oral diuretics including Lasix oral and Aldactone Unresponsiveness, resolved, secondary to metabolic encephalopathy, recovered Chronic atrial fibrillation. The rate is controlled and the patient on long-t erm medical condition with Xarelto History of hypertension. History of previous myocardial infarction. History of obstructive sleep apnea syndrome, noncompliant with CPAP. History of alcohol abuse. History of previous tobacco use. History of CVA/TIA. Plan Continue supportive care Medication was reviewed No other changes from our standpoint Patient is on 4 L O2 nasal cannula Discharge to ECF, discharge planning is in progress
[2021-11-05 16:23] LABS: Glucose,Whole Blood 241 mg/dL (75-99)
[2021-11-05] MEDS: RIVAROXABAN 20 MG TAB PO SCH (17:02)
[2021-11-05 20:05] LABS: Glucose,Whole Blood 175 mg/dL (75-99)
[2021-11-05] MEDS: PRAVASTATIN SODIUM 80 MG TAB PO SCH (20:56)
[2021-11-05] MEDS: TAMSULOSIN 0.4 MG CAP.ER.24H PO SCH (20:56)
[2021-11-05] MEDS: METOPROLOL SUCCINATE (ER) 50 MG TAB.ER.24H PO SCH (20:56)
[2021-11-05] MEDS: ESCITALOPRAM 20 MG TAB PO SCH (20:56)
[2021-11-05] MEDS: OLANZapine 2.5 MG TAB PO SCH (20:56)
[2021-11-05] MEDS: TEMAZEPAM 15 MG CAP PO PRN (23:30)
[2021-11-06] MEDS: SIMETHICONE 80 MG CHEWABLE PO PRN (05:08)
[2021-11-06 06:22] LABS: Glucose,Whole Blood 109 mg/dL (75-99)
[2021-11-06] MEDS: INSULIN ASPART (NovoLOG) 100 UNIT/ML VIAL SQ SCH (06:23)
[2021-11-06] MEDS: PANTOPRAZOLE 40 MG TABLET PO SCH (06:24)
[2021-11-06] MEDS: FERROUS SULFATE 325 MG TAB PO SCH (06:24)
[2021-11-06] MEDS: IPRATROPIUM-ALBUTEROL 3 ML NEB INHALATION SCH ×2 (08:21→11:37)
[2021-11-06] MEDS: SYMBICORT 160-4.5 MCG INHALER INHALATION SCH (08:21)
[2021-11-06 08:39] LABS: Anisocytosis Slight; Basophils % (A) 0 %; Eosinophils % (A) 0 %; HCT 35.3 % (39.0-53.0); HGB 10.5 gm/dL (13.0-17.5); Hypochromasia Marked; Lymphocytes # (A) 1.5 k/uL (1.0-4.8); Lymphocytes % (A) 11 %; MCH 28.5 pg (25.0-35.0); MCHC 29.6 g/dL (31.0-37.0); MCV 96.3 fL (80.0-100.0); Macrocytosis Slight; Mean Platelet Volume 9.3; Monocytes # (A) 0.4 k/uL (0-1.0); Monocytes % (A) 3 %; Neutrophils # (A) 10.8 k/uL (1.3-7.7); Neutrophils % (A) 85 %; Platelet Count 147 k/uL (150-450); RBC 3.66 m/uL (4.30-5.90); RDW 19.4 % (11.5-15.5); WBC 12.7 k/uL (3.8-10.6)
[2021-11-06 09:05] LABS: African American GFR (CKD) >90 (>60 ml/min/1.73 sqM); Anion Gap 3 mmol/L; Blood Urea Nitrogen 26 mg/dL (9-20); Calcium 8.6 mg/dL (8.4-10.2); Carbon Dioxide 40 mmol/L (22-30); Chloride 93 mmol/L (98-107); Glucose 88 mg/dL (74-99); Non-African American GFR(CKD) >90 (>60 ml/min/1.73 sqM); Potassium 3.5 mmol/L (3.5-5.1); Sodium 136 mmol/L (137-145)
[2021-11-06] MEDS ORDERED: POTASSIUM CHLORIDE ER 20 MEQ TAB.ER PO STA (09:09)
[2021-11-06] MEDS: predniSONE 20 MG TAB PO SCH (09:15)
[2021-11-06] MEDS: PREGABALIN 100 MG CAP PO SCH (09:15)
[2021-11-06] MEDS: ISOSORBIDE MONONITRATE ER 60 MG TAB.ER.24H PO SCH (09:16)
[2021-11-06] MEDS: HYDROcodone/APAP 7.5-325MG 1 EACH TAB PO PRN (09:16)
[2021-11-06] MEDS: DOCUSATE 100 MG CAP PO SCH (09:16)
[2021-11-06] MEDS: SPIRONOLACTONE 25 MG TAB PO SCH (09:17)
[2021-11-06] MEDS: METOPROLOL SUCCINATE (ER) 100 MG TAB.ER.24H PO SCH (09:17)
[2021-11-06] MEDS: FUROSEMIDE 40 MG TAB PO SCH (09:17)
[2021-11-06] MEDS: CHOLECALCIFEROL 25 MCG (1000 IU) TABLET PO SCH (09:17)
[2021-11-06] MEDS: POTASSIUM CHLORIDE ER 20 MEQ TAB.ER PO SCH (09:18)
[2021-11-06 10:35] VITALS: RESP 18
[2021-11-06 11:30] LABS: Glucose,Whole Blood 121 mg/dL (75-99)
[2021-11-06 11:58] VITALS: BP 108/63; TEMP 97.5
[2021-11-06 12:26] VITALS: BMI 28.5
--- NOTE | 2021-11-06 13:21 | P.DS ---
Providers Date of admission: 10/26/21 11:17 Attending physician: Kerwin Turner Consults: 10/26/21 11:17 Consult Physician Stat Consulting Provider: Deshawn Kathleen Reason/Comments: Critical care Do you want consulting provider notified?: Yes 10/27/21 07:00 Consult to Palliative Care Routine Consulting Provider: Noemí Butler Consult Reason/Comments: COPD, CHF, multiple hospitalizations Do you want consulting provider notified?: Yes Primary care physician: Gordo Ibrahim Hospital Course: Shortness of breath is multifactorial due to acute COPD and CHF exacerbation and pneumonia. Sputum culture showed Mery albicans and Klebsiella pneumonia Acute on chronic hypoxic respiratory failure requiring BiPAP--4L NC Acute COPD exacerbation Acute on chronic CHF with diastolic dysfunction Lactic acidosis 3.7 on admission, improved Mildly elevated troponin level likely due to demand mismatch Chronic atrial fibrillation with rapid ventricular rate on admission History of CVA/TIA with right-sided weakness Coronary disease s/p CABG history Decubitus sacral ulcer History of CT GERD Hearing disorder/deafness Hypertension Hyperlipidemia Previous history of smoking History of AAA repair History of obstructive sleep apnea with cpap use History of alcohol use Full Code Discharge Disposition Patient is cleared for discharge to rehab today. Follow up with pulmonary, cardiology. Hospital Course This is a pleasant 76-year-old male who presents to the hospital on 10/26/2021 with worsening shortness of breath, on admission to the ER he was unresponsive and agonal breathing. Patient was placed on CPAP by EMS was transitioned to BiPAP in the ER. Patient was admitted to the medical ICU. Initial chest x-ray shows COPD with bilateral infiltrate and pleural effusion. EKG showed atrial fibrillation with rapid ventricular rate heart rate of 120. On admission white count 17, hemoglobin 10.8, platelet count 301, ABG showed a pH of 7.4, pCO2 of 55 and a pO2 of 97. Lactic acid was 3.7. Patient does have troponin elevation of 0.153. Chronic conditions include atrial fibrillation, coronary artery disease status post open heart, chest pain, heart failure, COPD on 4 L nasal cannula outpatient, pulmonary fibrosis, obstructive sleep apnea with CPAP use, peripheral neuropathy, hypertension, hyperlipidemia, myocardial infarction history of alcohol abuse, reports 6-8 beers daily. Patient was brought to the hospital from [facility] he has been there for rehab for 1 week prior to admission. He was recently discharged from this hospital on October 19 for CHF exacerbation. Patient was treated for COPD, CHF exacerbation. He was also treated inpatient with IV zosyn for klebsiella pneumoniae this admission, in addition to IV solumedrol, IV lasix, duonebs, symbicort. He has since been transitioned to oral lasix increased to 40 mg PO BID, and has started on prednisone burst and taper. Patient will not require antibiotics on discharge as he has completed course of therapy. Most recent xray on 11/02 showing bilateral infiltrate and pleural effusion which is stable. Clinically patient has improved, and has been cleared by pulmonary and cardiology services for discharge. 11/06/2021 Patient evaluated today resting in bed. He continues with indwelling catheter which was placed on admission. Order for discontinuation yesterday, however, he can complete the voiding trial once he is settled back at rehab. Cain catheter to be removed as soon as possible. No acute events overnight. No wheezing noted on exam. Patient is at baseline of 4L Nasal cannula with oxygen saturation of 100%, afebrile, blood pressure 108/63, heart rate 78. Labs today showing white count of 12.7, hgb 10.5, stable, sodium 136, potassium 3.5, Co2 40, blood glucose 120s. Patient will complete prednisone taper. Follow up labs in 2 days. He is currently denying chest pain, palpitations, reports dry non productive cough. He is tolerating diet. S1 S2 auscultated, abdomen soft and non tender, no peripheral edema. Alert x 3, focal neurological exam is negative. Patient to be discharged back to rehab today. Please see medication reconciliation for a list of current medications. Thank you for allowing us to participate in the care of this patient. The impression and plan of care has been dictated by Aparna Fong Nurse Practitioner as directed. Dr. Renu MD I have performed a history and physical examination and medical decision making of this patient, discussed the same with the dictator, and agree with the dictators assessment and plan as written, documented as a scribe. Based on total visit time, I have performed more than 50% of this visit. Patient Condition at Discharge: Fair Plan - Discharge Summary Discharge Rx Participant: No New Discharge Prescriptions: New Furosemide [Lasix] 40 mg PO BID@0900,1600 tab Simethicone Chew [Mylicon Chew] 160 mg PO TID PRN PRN Reason: flatus INSULIN ASPART (NovoLOG) [NovoLOG (formulary)] 0 unit SQ ACHS ml Metoprolol Succinate (ER) [Toprol XL] 50 mg PO HS Metoprolol Succinate (ER) [Toprol XL] 100 mg PO DAILY predniSONE 0 mg PO DIRECTED 8 Days #18 tab polyethylene glycoL 3350 [Miralax] 17 gm PO DAILY PRN packet PRN Reason: Constipation Budesonide-Formot 160-4.5 Mcg [Symbicort 160-4.5 Mcg Inhaler] 2 puff INHALATION RT-BID gm Acetaminophen Tab [Tylenol] 650 mg PO Q4HR PRN tab PRN Reason: Fever And/Or Mild Pain Continue Pravastatin Sodium [Pravachol] 80 mg PO HS Albuterol Inhaler [Ventolin Hfa Inhaler] 2 puff INHALATION RT-Q6H PRN PRN Reason: Shortness Of Breath Rivaroxaban [Xarelto] 20 mg PO DAILY Loratadine 10 mg PO DAILY PRN PRN Reason: Allergy Symptoms Potassium Chloride ER [K-Dur 20] 20 meq PO Q12H Cholecalciferol [Vitamin D3 (25 Mcg = 1000 Iu)] 50 mcg PO DAILY Ipratropium-Albuterol Nebulize [Duoneb 0.5 mg-3 mg/3 ml Soln] 3 ml INHALATION RT-QID PRN ml PRN Reason: Wheezing Folic Acid 1 mg PO DAILY tab Calcium Carbonate [Tums] 1,000 mg PO QID PRN PRN Reason: Heartburn OLANZapine [ZyPREXA] 2.5 mg PO HS tab Pantoprazole [Protonix] 40 mg PO BID@0600,1700 HYDROcodone/APAP 7.5-325MG [Haywood 7.5-325] 1 tab PO Q6H PRN #6 tab PRN Reason: Pain ALPRAZolam [Xanax] 0.25 mg PO Q8H PRN #3 tab PRN Reason: Anxiety Nitroglycerin Sl Tabs [Nitrostat] 0.4 mg SL Q5M PRN PRN Reason: Chest Pain Spironolactone [Aldactone] 25 mg PO DAILY Fluticasone/Salmeterol [Advair 500-50 Diskus] 1 puff INHALATION RT-Q12H Collagenase [Santyl Ointment] 1 applic TOPICAL HS Tamsulosin [Flomax] 0.4 mg PO HS Docusate [Colace] 100 mg PO BID cap Escitalopram [Lexapro] 20 mg PO HS tab Temazepam [Restoril] 15 mg PO HS PRN #2 cap PRN Reason: Insomnia Isosorbide Mononitrate ER [Imdur] 60 mg PO DAILY #0 Zinc Oxide 20% Oint 1 applic TOPICAL HS Ipratropium-Albuterol Nebulize [Duoneb 0.5 mg-3 mg/3 ml Soln] 3 ml INHALATION RT-Q6H Ferrous Sulfate [Iron (65 MG Elemental)] 325 mg PO Q12H Pregabalin [Lyrica] 200 mg PO TID@0600,1400,2200 #6 cap Discontinued Cephalexin [Keflex] 500 mg PO Q6H Furosemide [Lasix] 20 mg PO DAILY@0900 Furosemide [Lasix] 40 mg PO DAILY@0600 Metoprolol Succinate (ER) [Toprol XL] 75 mg PO DAILY predniSONE See Taper PO DIRECTED Discharge Medication List Pravastatin Sodium [Pravachol] 80 mg PO HS 12/18/13 [History] Albuterol Inhaler [Ventolin Hfa Inhaler] 2 puff INHALATION RT-Q6H PRN 08/25/20 [History] Nitroglycerin Sl Tabs [Nitrostat] 0.4 mg SL Q5M PRN 03/22/21 [History] Rivaroxaban [Xarelto] 20 mg PO DAILY 03/22/21 [History] Fluticasone/Salmeterol [Advair 500-50 Diskus] 1 puff INHALATION RT-Q12H 06/13/21 [History] Loratadine 10 mg PO DAILY PRN 06/13/21 [History] Spironolactone [Aldactone] 25 mg PO DAILY 06/13/21 [History] Potassium Chloride ER [K-Dur 20] 20 meq PO Q12H 07/09/21 [History] Cholecalciferol [Vitamin D3 (25 Mcg = 1000 Iu)] 50 mcg PO DAILY 09/09/21 [History] Collagenase [Santyl Ointment] 1 applic TOPICAL HS 09/21/21 [History] Tamsulosin [Flomax] 0.4 mg PO HS 09/21/21 [History] Calcium Carbonate [Tums] 1,000 mg PO QID PRN 10/17/21 [Rx] Docusate [Colace] 100 mg PO BID cap 10/17/21 [Rx] Escitalopram [Lexapro] 20 mg PO HS tab 10/17/21 [Rx] Folic Acid 1 mg PO DAILY tab 10/17/21 [Rx] Ipratropium-Albuterol Nebulize [Duoneb 0.5 mg-3 mg/3 ml Soln] 3 ml INHALATION RT-QID PRN ml 10/17/21 [Rx] Isosorbide Mononitrate ER [Imdur] 60 mg PO DAILY #0 10/17/21 [Rx] OLANZapine [ZyPREXA] 2.5 mg PO HS tab 10/17/21 [Rx] Temazepam [Restoril] 15 mg PO HS PRN #2 cap 10/17/21 [Rx] Ferrous Sulfate [Iron (65 MG Elemental)] 325 mg PO Q12H 10/26/21 [History] Ipratropium-Albuterol Nebulize [Duoneb 0.5 mg-3 mg/3 ml Soln] 3 ml INHALATION RT-Q6H 10/26/21 [History] Pantoprazole [Protonix] 40 mg PO BID@0600,1700 10/26/21 [History] Zinc Oxide 20% Oint 1 applic TOPICAL HS 10/26/21 [History] ALPRAZolam [Xanax] 0.25 mg PO Q8H PRN #3 tab 11/06/21 [Rx] Acetaminophen Tab [Tylenol] 650 mg PO Q4HR PRN tab 11/06/21 [Rx] Budesonide-Formot 160-4.5 Mcg [Symbicort 160-4.5 Mcg Inhaler] 2 puff INHALATION RT-BID gm 11/06/21 [Rx] Furosemide [Lasix] 40 mg PO BID@0900,1600 tab 11/06/21 [Rx] HYDROcodone/APAP 7.5-325MG [Haywood 7.5-325] 1 tab PO Q6H PRN #6 tab 11/06/21 [Rx] INSULIN ASPART (NovoLOG) [NovoLOG (formulary)] 0 unit SQ ACHS ml 11/06/21 [Rx] Metoprolol Succinate (ER) [Toprol XL] 50 mg PO HS 11/06/21 [Rx] Metoprolol Succinate (ER) [Toprol XL] 100 mg PO DAILY 11/06/21 [Rx] Pregabalin [Lyrica] 200 mg PO TID@0600,1400,2200 #6 cap 11/06/21 [Rx] Simethicone Chew [Mylicon Chew] 160 mg PO TID PRN 11/06/21 [Rx] polyethylene glycoL 3350 [Miralax] 17 gm PO DAILY PRN packet 11/06/21 [Rx] predniSONE 0 mg PO DIRECTED 8 Days #18 tab 11/06/21 [Rx] Follow up Appointment(s)/Referral(s): Gordo Ibrahim MD [Primary Care Provider] - 1-2 days Ambulatory/Diagnostic Orders: Basic Metabolic Panel [LAB.AMB] Location: None Selected Complete Blood Count w/diff [LAB.AMB] Time Frame: 2 Days, Location: None Selected
--- NOTE | 2021-11-06 14:00 | P.PN ---
Subjective Progress Note Date: 11/06/21 The patient is seen today 11/06/2021 and follow-up on the selective care unit. He is currently sitting up in bed. Awake and alert in no acute distress. He is breathing quite a bit better. Nearly back to his baseline. He is maintaining O2 saturations on 200% on 4 L/m per nasal cannula. Afebrile. Hemodynamically stable. White count 12.7. Hemoglobin 10.5. Platelets 147. Sodium 136. Potassium 3.5. Bicarb 40. BUN 26. Creatinine 0.62. Glucose 88. He's been continued on DuoNeb inhalations, Symbicort, prednisone taper. He remains on oral diuretics. Anticoagulated with Xarelto. Objective - Vital Signs Vital signs: Vital Signs Temp 97.5 F L 11/06/21 11:40 Pulse 78 11/06/21 11:48 Resp 18 11/06/21 11:40 BP 108/63 11/06/21 11:40 Pulse Ox 100 11/06/21 11:40 Intake & Output 11/05/21 11/06/21 11/06/21 18:59 06:59 18:59 Intake Total 722 716 Output Total 1900 500 Balance 722 -1900 216 Weight 98 kg Intake: Oral 722 716 Output: Urine 1900 500 Other: Voiding Method Indwelling Catheter Indwelling Catheter Indwelling Catheter # Bowel Movements 1 - Exam GENERAL EXAM: Alert, pleasant 76-year-old male patient, on 4 L nasal cannula,, comfortable in no apparent distress. HEAD: Normocephalic. EYES: Normal reaction of pupils, equal size. NOSE: Clear with pink turbinates. THROAT: No erythema or exudates. NECK: No masses, no JVD. CHEST: No chest wall deformity. LUNGS: Equal air entry with faint crackles in the posterior bases CVS: S1 and S2 normal with no audible murmur, regular rhythm. ABDOMEN: No hepatosplenomegaly, normal bowel sounds, no guarding or rigidity. SPINE: No scoliosis or deformity SKIN: No rashes CENTRAL NERVOUS SYSTEM: No focal deficits, tone is normal in all 4 extremities. EXTREMITIES: There is 1+ peripheral edema. No clubbing, no cyanosis. Peripheral pulses are intact. - Labs CBC & Chem 7: 11/06/21 08:00 11/06/21 08:00 Labs: Abnormal Lab Results - Last 24 Hours (Table) 11/05/21 11/05/21 11/06/21 Range/Units 16:22 20:03 06:21 WBC (3.8-10.6) k/uL RBC (4.30-5.90) m/uL Hgb (13.0-17.5) gm/dL Hct (39.0-53.0) % MCHC (31.0-37.0) g/dL RDW (11.5-15.5) % Plt Count (150-450) k/uL Neutrophils # (1.3-7.7) k/uL Sodium (137-145) mmol/L Chloride (98-107) mmol/L Carbon Dioxide (22-30) mmol/L BUN (9-20) mg/dL Creatinine (0.66-1.25) mg/dL POC Glucose (mg/dL) 241 H 175 H 109 H (75-99) mg/dL 11/06/21 11/06/21 11/06/21 Range/Units 08:00 08:00 11:28 WBC 12.7 H (3.8-10.6) k/uL RBC 3.66 L (4.30-5.90) m/uL Hgb 10.5 L (13.0-17.5) gm/dL Hct 35.3 L (39.0-53.0) % MCHC 29.6 L (31.0-37.0) g/dL RDW 19.4 H (11.5-15.5) % Plt Count 147 L (150-450) k/uL Neutrophils # 10.8 H (1.3-7.7) k/uL Sodium 136 L (137-145) mmol/L Chloride 93 L (98-107) mmol/L Carbon Dioxide 40 H (22-30) mmol/L BUN 26 H (9-20) mg/dL Creatinine 0.62 L (0.66-1.25) mg/dL POC Glucose (mg/dL) 121 H (75-99) mg/dL Assessment and Plan Assessment: Acute on chronic hypoxemic respiratory failure, secondary to COPD exacerbation, and possible aspiration pneumonia. Clinically improving and the patient remains stable, improved and the patient is currently off IV Zosyn as the patient completed the course of treatment. Stable on 4 L of O2 nasal cannula with a pulse ox of 100% Klebsiella pneumoniae pneumonia, patient has completed Zosyn treatment. Acute on chronic diastolic CHF. Patient is currently on oral diuretics including Lasix oral and Aldactone Unresponsiveness, resolved, secondary to metabolic encephalopathy, recovered Chronic atrial fibrillation. The rate is controlled and the patient on long- term medical condition with Xarelto History of hypertension. History of previous myocardial infarction. History of obstructive sleep apnea syndrome, noncompliant with CPAP. History of alcohol abuse. History of previous tobacco use. History of CVA/TIA. Plan The patient was seen and evaluated Labs and medications reviewed Stable on 4 L nasal cannula Plan is to return to [facility] today I have personally seen and examined the patient, performed the documentation and the assessment and plan as written. Number of minutes spent on the visit: 10. I have personally seen and examined the patient and reviewed the documentation. I performed a joint evaluation with the nurse practitioner in this evaluation was done more than 20 minutes. I fully agree with the documentation above and the plan of care. The patient is doing well. The patient has no specific complaints. The patient completed the course of IV Zosyn. This chest pain is in progress. The patient will be going to [facility] on the [place] today. We'll follow up on outpatient basis. Continue O2. Continue bronchodilators. Continue the prednisone burst taper.
[2021-11-06 14:09] VITALS: PULSE 79
--- NOTE | 2021-11-06 14:21 | P.PN ---
Subjective Progress Note Date: 11/06/21 Principal diagnosis: COPD and CHF exacerbation, pneumonia Patient is a 76-year-old male with a known history of atrial fibrillation on anticoagulation with Xarelto, chronic CHF diastolic function, COPD, history of CVA/TIA with residual right-sided weakness, pulmonary fibrosis, obstructive sleep apnea, GERD, hearing disorder/deafness, hypertension, hyperlipidemia, history of [place], CAD status post CABG and other multiple medical problems including previous history of smoking presented to the on 10/26/21 with complaints of worsening shortness of breath. Patient was unresponsive and was in agonal breathing and was placed on CPAP by EMS and transition to BiPAP in the ER. Patient was transferred to MICU. Chest x-ray showed COPD with bilateral infiltrate and pleural effusion. Cardiomegaly. EKG showed atrial fibrillation with rapid ventricular rate heart rate 120. 10/27/2021 Patient was in the ICU. Oxygen via nasal cannula at 4 L. Patient wore BiPAP overnight. Patient continued on IV Lasix due to acute renal chronic CHF. Also on antibiotics in the form of Zosyn and Methylprednisolone Cultures have been negative so far. Chest x-ray today showed stable chest with persistent bilateral infiltrates. Transferred to medical floor 10/28/2021 Patient stable on 4 L oxygen via nasal cannula and wears BiPAP at night. IV diuretics, antibiotics, and steroids continued. Chest x-ray stable. 10/29/2021 Patient resting in bed comfortably. No actue distress noted. Patient c/o dyspnea on exertion. Stable on 4L NC and BiPAP overnight. Sputum did show evidence of Klebsiella pneumoniae. The Klebsiella is sensitive to Zosyn. 10/30/2021 The patient is doing relatively well. He remains on 4 L nasal cannula. He did use his home CPAP device last night. Prior to that, he was using the [facility] BiPAP machine. The patient does feel improved. His breathing is better. 10/31/21 The patient states he worked with PT yesterday. He was able to get up into the chair with assistance. He is looking forward to working with them again today.The patient states he was able to wear his CPAP for 4-5 hours last night and slept well. He did not need his Restoril. He stated he experience some anxiety yesterday, asked for a Xanax, and stated it helped relax him. He c/o 5/10 neuropathy pain to b/l feet. He stated he already requested a Bedford from the nurse. He states he gets adequate relief with Bedford. 11/05/21 The patient has completed a course of antibiotic therapy, He is currently on 4L oxygen via nasal cannula. Patient was started back on CPAP as per his home settings, and tolerating it an average of 4 hours a night. He has been transitioned to oral lasix, oral prednisone tapering by pulmonary. at bedside during the exam. Objective - Vital Signs Vital signs: Vital Signs Temp 97.5 F L 11/06/21 11:40 Pulse 79 11/06/21 13:59 Resp 18 11/06/21 13:59 BP 108/63 11/06/21 11:40 Pulse Ox 100 11/06/21 11:40 Intake & Output 11/05/21 11/06/21 11/06/21 18:59 06:59 18:59 Intake Total 722 716 Output Total 1900 500 Balance 722 -1900 216 Weight 98 kg Intake: Oral 722 716 Output: Urine 1900 500 Other: Voiding Method Indwelling Catheter Indwelling Catheter Indwelling Catheter # Bowel Movements 1 - Exam General: Patient awake alert and oriented x 3. No acute distress. HEENT: Head is atraumatic, normocephalic Neck is supple. Sclerae are clear. Pupils equal, round and reactive to light bilaterally. CV: Heart regular in rate and rhythm positive S1 and S2. No clicks, rubs or mur murs. No JVD. Peripheral pulses equal. 2/4 Lungs: Diminished bases. No wheezes, rales or rhonchi. Respirations even and nonlabored. No intercostal retractions.No conversational dyspnea. Currently on 4L NC (baseline) Abdomen/GI: Soft. Bowel sounds present in all 4 quadrants. Bowel sounds normoactive. No abdominal tenderness. : Shahid draining clear yellow urine Musculoskeletal/ Extremities: Generalized weakness. No tenderness on muscular exam. No ecchymosis. Trace edema to b/l LE - improving Vascular: Radial pulses equal. 2/4. Skin: Dry flaky skin, no rash. Neurologic:No focal deficits. Psychiatric: Appropriate mood and affect. - Labs CBC & Chem 7: 11/06/21 08:00 11/06/21 08:00 Labs: Abnormal Lab Results - Last 24 Hours (Table) 11/05/21 11/05/21 11/06/21 Range/Units 16:22 20:03 06:21 WBC (3.8-10.6) k/uL RBC (4.30-5.90) m/uL Hgb (13.0-17.5) gm/dL Hct (39.0-53.0) % MCHC (31.0-37.0) g/dL RDW (11.5-15.5) % Plt Count (150-450) k/uL Neutrophils # (1.3-7.7) k/uL Sodium (137-145) mmol/L Chloride (98-107) mmol/L Carbon Dioxide (22-30) mmol/L BUN (9-20) mg/dL Creatinine (0.66-1.25) mg/dL POC Glucose (mg/dL) 241 H 175 H 109 H (75-99) mg/dL 11/06/21 11/06/21 11/06/21 Range/Units 08:00 08:00 11:28 WBC 12.7 H (3.8-10.6) k/uL RBC 3.66 L (4.30-5.90) m/uL Hgb 10.5 L (13.0-17.5) gm/dL Hct 35.3 L (39.0-53.0) % MCHC 29.6 L (31.0-37.0) g/dL RDW 19.4 H (11.5-15.5) % Plt Count 147 L (150-450) k/uL Neutrophils # 10.8 H (1.3-7.7) k/uL Sodium 136 L (137-145) mmol/L Chloride 93 L (98-107) mmol/L Carbon Dioxide 40 H (22-30) mmol/L BUN 26 H (9-20) mg/dL Creatinine 0.62 L (0.66-1.25) mg/dL POC Glucose (mg/dL) 121 H (75-99) mg/dL Assessment and Plan Plan: Symptoms * Pain - Neuropathic pain to bilateral feet currently 6/10. He states the Bedford he has ordered makes it tolerable /10. Also on Tylenol PRN and scheduled Lyrica. Currently 4/10 pain. * Fatigue/weakness - Feels as if he has more energy than yesterday, still feeling weak. Participating with PT * SOB - on 4LNC, denies sob at rest. c/o ST. Currently on Duoneb neb scheduled and prn, Sybmicort, Zosyn for pna, and diuretics for CHF - Aldactone and Lasix. Prednisone for COPD. Pt states wob has improved. Encouraged longer use of CPAP at HS. * Insomnia - Sleeping well and has not needed to take Restoril * N/V - denies * Anxiety/Depression - denied, continue Zyprexa and Lexapro. * Confusion/agitation - none * Appetite/dysphagia/weight loss - Patient states he has a good appetite and eating 90% of all meals. . He denies any dysphagia. * Constipation - LBM this morning, Stated Miralax and colace together has been helping. * Incontinence - denies - currently has shahid * Itch - denies Goal/Plan - Return to [facility] for rehab today. Then eventually transitioning back home with his . OP palliative care contact information provided. Code Status Patient wishes to remain a full code. Noemí Butler [facility] Palliative Care [place]ink [phone] Email: [email or web address] Time with Patient: Less than 30
== END 2021-11-06 15:21 | DRG 871 ==
LOC: EC 08:49 → 2SICU 11:17 → 3SCARD 10-27 17:34
PROVIDERS: ADMIT Internal Medicine; ATTEND Internal Medicine
PROC: 02HV33Z Insertion of Infusion Device into Superior Vena Cava, Percutaneous Approach (ICD-10-PCS; principal; 2021-10-26)
PROC: 3E033XZ Introduction of Vasopressor into Peripheral Vein, Percutaneous Approach (ICD-10-PCS; 2021-10-26)
DX: A41.9 Sepsis, unspecified organism (principal); B37.1 Pulmonary candidiasis; J69.0 Pneumonitis due to inhalation of food and vomit; G93.41 Metabolic encephalopathy; I50.33 Acute on chronic diastolic (congestive) heart failure; J96.21 Acute and chronic respiratory failure with hypoxia; J15.0 Pneumonia due to Klebsiella pneumoniae; J15.6 Pneumonia due to other Gram-negative bacteria; E87.2 Acidosis; I48.21 Permanent atrial fibrillation; I69.351 Hemiplegia and hemiparesis following cerebral infarction affecting right dominant side; E07.81 Sick-euthyroid syndrome; E78.5 Hyperlipidemia, unspecified; G62.9 Polyneuropathy, unspecified; H91.90 Unspecified hearing loss, unspecified ear; I08.1 Rheumatic disorders of both mitral and tricuspid valves; I25.2 Old myocardial infarction; I27.20 Pulmonary hypertension, unspecified; Z20.822 Contact with and (suspected) exposure to COVID-19; I71.9 Aortic aneurysm of unspecified site, without rupture; J20.9 Acute bronchitis, unspecified; J43.9 Emphysema, unspecified; K21.9 Gastro-esophageal reflux disease without esophagitis; K44.9 Diaphragmatic hernia without obstruction or gangrene; L89.159 Pressure ulcer of sacral region, unspecified stage; Z79.01 Long term (current) use of anticoagulants; Z79.52 Long term (current) use of systemic steroids; Z79.899 Other long term (current) drug therapy; Z82.49 Family history of ischemic heart disease and other diseases of the circulatory system; Z86.79 Personal history of other diseases of the circulatory system; Z87.891 Personal history of nicotine dependence; I11.0 Hypertensive heart disease with heart failure; I25.10 Atherosclerotic heart disease of native coronary artery without angina pectoris; Z91.19 Patient's noncompliance with other medical treatment and regimen; Z95.1 Presence of aortocoronary bypass graft; Z95.5 Presence of coronary angioplasty implant and graft; Z96.1 Presence of intraocular lens; F10.10 Alcohol abuse, uncomplicated
CPT/HCPCS: 36415; 36556; 36600; 71045; 80048; 80053; 81001; 82805; 83605; 83880; 84145; 84439; 84443; 84484; 85025; 85610; 85730; 87040; 87070; 87077; 87186; 87205; 87635; 93005; 94640; 94660; 94760; 96361; 96374; 96375; 99291